=== PATIENT | female | born 1975 | race Caucasian/White ===

== ENCOUNTER 2024-03-22 18:23 | Inpatient (IN) ==
[2024-03-22 19:07] LABS: Basophils # (auto) 0.05 K/uL (0.00-0.20); Basophils % (auto) 0.5 %; Eosinophils # (auto) 0.08 K/uL (0.00-0.50); Eosinophils % (auto) 0.7 %; Hematocrit (blood only) 44.6 % (37.0-47.0); Hemoglobin 15.4 g/dl (12.0-16.0); Immature Granulocytes # (auto) 0.03 K/uL (0.01-0.20); Immature Granulocytes % (auto) 0.3 %; Lymphocytes # (auto) 4.51 K/uL (1.20-3.40); Lymphocytes % (auto) 42.2 %; Mean Corpuscular Hemoglobin 30.3 pg (25.0-34.0); Mean Corpuscular Hgb Conc 34.5 g/dL (32.0-36.0); Mean Corpuscular Volume 87.6 fL (80.0-100.0); Monocytes # (auto) 0.64 K/uL (0.11-0.59); Neutrophils # (auto) 5.38 K/uL (1.40-6.50); Neutrophils % (auto) 50.3 %; Platelet Count 512 K/uL (130-400); RDW Coefficient of Variation 12.4 % (11.5-14.5); RDW Standard Deviation 40.1 fL (36.4-46.3); Red Blood Count 5.09 M/uL (4.20-5.40); White Blood Count 10.69 K/ul (4.8-10.8)
[2024-03-22 19:21] LABS: Albumin Globulin Ratio 1.4 (0.9-2); Albumin Level 4.9 gm/dl (3.4-5.0); BUN Creatinine Ratio 18.3 (10-20); Bilirubin,Total 0.3 mg/dl (0.2-1.0); Calcium 9.7 mg/dl (8.6-10.3); Creatinine Clr Calc Pharmacy 57.7 ml/min; Est GFR (African American) 74.1 ml/min; Est GFR (Non-African American) 63.9 ml/min; Globulin 3.6 gm/dl (2.5-4.0); Potassium 2.7 mmol/L (3.5-5.1); Total Protein 8.5 gm/dl (6.0-8.3)
[2024-03-22 19:32] LABS: Partial Thromboplastin Time 27 Seconds (21-31); Prothrombin Time 10.5 Seconds (9.0-12.0)
[2024-03-22] MEDS: POTASSIUM CHLORIDE / WTR 10 MEQ/100 ML PLCT IV SCH (21:10)
[2024-03-22] MEDS: FAMOTIDINE 20MG IV PUSH 20 MG/5 ML SYR IV STA (21:10)
[2024-03-22] MEDS: METOCLOPRAMIDE HCL INJ 5 MG/ML 2 ML VIAL IV ONE (21:10)
[2024-03-22] MEDS: SODIUM CHLORIDE 0.9% 1,000 ML IV SCH (21:11)
[2024-03-22 22:08] LABS: Magnesium 1.9 mg/dl (1.7-2.4)
[2024-03-23] MEDS: SODIUM CHLORIDE 0.9% 1,000 ML IV SCH (00:34)
[2024-03-23] MEDS: clonazePAM 1 MG TAB PO STA (00:58)
[2024-03-23] MEDS: QUEtiapine FUMARATE 200 MG TAB PO STA (01:13)
--- NOTE | 2024-03-23 01:38 | History & Physical Report ---
Date of Service March 23, 2024 Assessment & Plan (1) Nausea & vomiting: Plan: 48-year-old female with past medical history significant for hypocalcemia, hypokalemia, GERD, colitis, chronic constipation alternating with diarrhea, gastritis, irritable bowel syndrome with diarrhea, gastroparesis, cervical intraepithelial neoplasia 1, fibromyalgia, chronic daily headache, migraine, cervicalgia, syncope, dysthymic disorder, depression, ADHD, generalized anxiety disorder presents with ongoing nausea and vomiting and also found to have hypokalemia. Patient states was admitted to [facility] 3 times in last 2 months with similar episodes.Discharge summary from [facility]" C.Diff was ruled out. CT abdomen pelvis showed fluid throughout colon and rectum. Symptoms thought to be related to irritable bowel syndrome. Gastric emptying study showed delayed gastric emptying of solids. Last colonoscopy February 2023 which showed polyps and diverticulosis. GI suggested gastroparesis diet and EGD and colonoscopy as outpatient. And patient was discharged on potassium supplements 40 mg 3 times daily and dicyclomine and loperamide as needed and simethicone." Patient says still she is having lot of nausea and vomiting. She is not able to eat much. She thinks she is vomiting potassium tablets. She says she alternates diarrhea and constipation. Currently having a lot of diarrhea. Denies any blood in the stool. Not micturating much. She denies any fevers. Sometimes she gets chest pains. Currently no chest pain. No shortness of breath. States she has episodes of blacking out Last time she passed out about, was few days back while sitting on the commode. No fevers. Has some headache. Vision is okay. No runny nose or sore throat currently. No cough currently. Hemodynamics are okay.Patient says sometimes she gets very bad cramps in her legs and as she holds her legs tight and developed bruises and showed photos of bruises. nausea and vomiting possible gastroparesis there is a plan for outpatient EGD and colonoscopy as per patient by end april currently feeling hungry and wants to eat clears IV fluids GI consult in a.m. hypokalemia potassium 2.7 seems chronic and and on home potassium supplements possibly from nausea and vomiting replace and follow labs diarrhea seems irritable bowel syndrome on Linzess GI consulted syncope will check orthostatics patient has syncopes in the past and followed with cardiology in 2021 had ZIO monitor which seems to be unremarkable and also echo seem to be unremarkable as per cardiology notes if any concerns will consult cardiology Leg cramps mostly from electrolyte abnormalities will monitor depression generalized anxiety disorder ADHD continue home medications GERD on Nexium and Pepcid DVT prophylaxis SCDs for now disposition med/telemetry full code. History of Present Illness Chief Complaint: Nausea vomiting and diarrhea Primary Care Provider: Riccardo Nickerson 48-year-old female with past medical history significant for hypocalcemia, hypokalemia, GERD, colitis, chronic constipation alternating with diarrhea, gastritis, irritable bowel syndrome with diarrhea, gastroparesis, cervical intraepithelial neoplasia 1, fibromyalgia, chronic daily headache, migraine, cervicalgia, syncope, dysthymic disorder, depression, ADHD, generalized anxiety disorder presents with ongoing nausea and vomiting and also found to have hypokalemia. Patient states was admitted to [facility] 3 times in last 2 months with similar episodes.Discharge summary from [facility]" C.Diff was ruled out. CT abdomen pelvis showed fluid throughout colon and rectum. Symptoms thought to be related to irritable bowel syndrome. Gastric emptying study showed delayed gastric emptying of solids. Last colonoscopy February 2023 which showed polyps and diverticulosis. GI suggested gastroparesis diet and EGD and colonoscopy as outpatient. And patient was discharged on potassium supplements 40 mg 3 times daily and dicyclomine and loperamide as needed and simethicone." Patient says still she is having lot of nausea and vomiting. She is not able to eat much. She thinks she is vomiting potassium tablets. She says she alternates diarrhea and constipation. Currently having a lot of diarrhea. Denies any blood in the stool. Not micturating much. She denies any fevers. Sometimes she gets chest pains. Currently no chest pain. No shortness of breath. States she has episodes of blacking out Last time she passed out about, was few days back while sitting on the commode. No fevers. Has some headache. Vision is okay. No runny nose or sore throat currently. No cough currently. Hemodynamics are okay.Patient says sometimes she gets very bad cramps in her legs and as she holds her legs tight and developed bruises and showed photos of bruises. Past medical history. As mentioned above past surgical history. Colonoscopy. Colposcopy. Cystourethroscopy. EGD. Bilateral enlargement of breast. Tonsillectomy. Enigma tooth removal. Family history. No smoking. Alcohol rarely. No drug use. Allergies Allergy/AdvReac Type Severity Reaction Status Date / Time No Known Allergies Allergy Unverified 03/22/24 23:10 Home Medications Medication Instructions Recorded Confirmed Type bupropion HCl 150 mg tablet,12 hr 150 mg PO QAM 03/22/24 03/22/24 History sustained-release calcium carbonate (Calcium Antacid) 750 tab PO QAM 03/22/24 03/22/24 History clonazepam 1 mg tablet 1 mg PO BID 03/22/24 03/23/24 History cyanocobalamin (vitamin B-12) 1,000 mcg IM UD 03/22/24 03/22/24 History 1,000 mcg/mL injection solution desvenlafaxine succinate 100 mg 100 mg PO DAILY 03/22/24 03/22/24 History tablet,extended release 24 hr esomeprazole magnesium 40 mg 40 mg PO DAILY 03/22/24 03/22/24 History capsule,delayed release (Nexium) famotidine 20 mg tablet 20 mg PO BID 03/22/24 03/22/24 History linaclotide 290 mcg capsule 290 mcg PO DAILY 03/22/24 03/22/24 History (Linzess) loperamide 2 mg capsule 2 mg PO DIRECTED PRN Diarrhea 03/22/24 03/22/24 History methylphenidate HCl 20 mg tablet 20 mg PO TID 03/22/24 03/22/24 History (Ritalin) ondansetron 4 mg disintegrating 4 mg PO TID PRN Nausea 03/22/24 03/22/24 History tablet potassium chloride 20 mEq 40 meq PO TID 03/22/24 03/23/24 History tablet,extended release quetiapine 200 mg tablet 200 mg PO HS 03/22/24 03/22/24 History simethicone 80 mg chewable tablet 80 mg PO TID PRN .gas/bloating 03/22/24 03/22/24 History (Gas Relief 80 (simethicone)) Past Med/Surg History Problem List (Updated 03/23/24 @ 02:26 by Marlene Lundy MD) Gastroparesis (Acute) Acute hypokalemia (Acute) Nausea & vomiting Social History Smoking Status: Never smoker Second Hand Exposure: No; Do You Dip or Chew Tobacco: No; Tobacco Cessation Education Requested by Patient: No Hx Alcohol Use: No Hx Substance Use: No Preferred Language: Spanish Communication Ability: Effective Gas Controller Required: No Beliefs That Will Affect Care: None Current Living Situation: Alone Other Information That Helps Us Care for You: No Feels Safe at Home: Yes Safety Concerns: Feels Safe At This Time Assistive Devices: None Review of Systems Review of Systems: All systems reviewed & are unremarkable except as noted in HPI & below Physical Exam Physical Exam: General- Not in distress Head- atraumatic Eyes- PERRL. ENT- oropharynx clear Neck- supple, no JVD. Lungs- clear to auscultation no wheezing or crackles. Heart- regular rhythm; no murmur, no gallop. Abdomen- normal bowel sounds, soft, nontender, no distension. Extremities- no pretibial edema, no erythema seen. old bruises seen on extremities. Neuro- alert, oriented PERRL, no facial palsy; no dysarthria; moves extremities Results & Data Results & Data Vital Signs (Past 12 Hours) Vital Signs Temp Pulse Pulse Resp BP BP Pulse Ox 03/22/24 22:23 90 18 118/80 99 03/22/24 21:03 101 H 03/22/24 18:25 36.9 C 119 H 20 123/77 98 O2 Del Method 03/22/24 22:23 Room Air 03/22/24 21:03 03/22/24 18:25 Room Air Diagnostic Findings Laboratory Results WBC 10.69 K/ul (4.8-10.8) 03/22/24 Unknown RBC 5.09 M/uL (4.20-5.40) 03/22/24 Unknown Hgb 15.4 g/dl (12.0-16.0) 03/22/24 Unknown Hct 44.6 % (37.0-47.0) 03/22/24 Unknown MCV 87.6 fL (80.0-100.0) 03/22/24 Unknown MCH 30.3 pg (25.0-34.0) 03/22/24 Unknown MCHC 34.5 g/dL (32.0-36.0) 03/22/24 Unknown RDW Std Deviation 40.1 fL (36.4-46.3) 03/22/24 Unknown RDW Coeff of Justino 12.4 % (11.5-14.5) 03/22/24 Unknown Plt Count 512 K/uL (130-400) H 03/22/24 Unknown MPV 9.0 fL (9.4-12.4) L 03/22/24 Unknown Immature Gran % (Auto) 0.3 % 03/22/24 Unknown Neut % (Auto) 50.3 % 03/22/24 Unknown Lymph % (Auto) 42.2 % 03/22/24 Unknown [place] % (Auto) 6.0 % 03/22/24 Unknown Eos % (Auto) 0.7 % 03/22/24 Unknown Baso % (Auto) 0.5 % 03/22/24 Unknown Neut # (Auto) 5.38 K/uL (1.40-6.50) 03/22/24 Unknown Lymph # (Auto) 4.51 K/uL (1.20-3.40) H 03/22/24 Unknown [place] # (Auto) 0.64 K/uL (0.11-0.59) H 03/22/24 Unknown Eos # (Auto) 0.08 K/uL (0.00-0.50) 03/22/24 Unknown Baso # (Auto) 0.05 K/uL (0.00-0.20) 03/22/24 Unknown Immature Gran # (Auto) 0.03 K/uL (0.01-0.20) 03/22/24 Unknown PT 10.5 Seconds (9.0-12.0) 03/22/24 Unknown INR 1.0 (0.9-1.1) 03/22/24 Unknown APTT 27 Seconds (21-31) 03/22/24 Unknown PTT Ratio 1.0 03/22/24 Unknown Sodium 136 mmol/L (136-145) 03/22/24 Unknown Potassium 2.7 mmol/L (3.5-5.1) L 03/22/24 Unknown Chloride 101 mmol/L (98-107) 03/22/24 Unknown Carbon Dioxide 20 mmol/L (21-32) L 03/22/24 Unknown Anion Gap 15 (3-11) H 03/22/24 Unknown BUN 19 mg/dl (6-23) 03/22/24 Unknown Creatinine 1.04 mg/dl (0.6-1.2) 03/22/24 Unknown Est Cr Clr Drug Dosing 57.7 ml/min 03/22/24 Unknown Est GFR ( Amer) 74.1 ml/min 03/22/24 Unknown Est GFR (Non-Af Amer) 63.9 ml/min 03/22/24 Unknown BUN/Creatinine Ratio 18.3 (10-20) 03/22/24 Unknown Glucose 173 mg/dl (70-99(Fasting)) H 03/22/24 Unknown Calcium 9.7 mg/dl (8.6-10.3) 03/22/24 Unknown Magnesium 1.9 mg/dl (1.7-2.4) 03/22/24 Unknown Total Bilirubin 0.3 mg/dl (0.2-1.0) 03/22/24 Unknown AST 20 U/L (13-39) 03/22/24 Unknown ALT 17 U/L (7-52) 03/22/24 Unknown Alkaline Phosphatase 105 U/L (34-104) H 03/22/24 Unknown Total Protein 8.5 gm/dl (6.0-8.3) H 03/22/24 Unknown Albumin 4.9 gm/dl (3.4-5.0) 03/22/24 Unknown Globulin 3.6 gm/dl (2.5-4.0) 03/22/24 Unknown Albumin/Globulin Ratio 1.4 (0.9-2) 03/22/24 Unknown [place] < 0.1 mmol/L (0.6-1.2) L 03/22/24 22:52 ECG Additional Comments: ECG. Sinus tachycardia rate of 118. Possible left atrial enlargement. Nonspecific ST and T wave abnormalities. Code Status & VTE Plan VTE Prophylaxis Plan VTE Prophylaxis will be ordered: Yes
--- NOTE | 2024-03-23 02:15 | Emergency Department Note ---
Impression & Plan Acute hypokalemia, Gastroparesis ED Provider Note CHIEF COMPLAINT: Vomiting, low potassium, cramps HISTORY OF PRESENT ILLNESS: This 48-year-old female patient with past medical history of fibromyalgia, gastroparesis, hypokalemia recurrently, ADHD, presents to the emergency department with complaints of worsening of symptoms. She states she has had significant charley horses in the legs and now there is "bruising." Patient states she was an inpatient at the [facility] and discharged 2 weeks ago. She is currently taking Bentyl, Linzess, Nexium and is awaiting consultation with gastroenterology. Per outpatient records however, the patient had a solid gastric emptying study performed, CT imaging of the abdomen pelvis and last had a colonoscopy in February 2023. stated that she has prescribed potassium at home however she vomits it up quite frequently. They state they are here this evening for answers as they do not feel that they got them on their admission to the outside hospital. REVIEW OF SYSTEMS: A review of systems was performed with positives and pertinent negatives listed in the history of present illness. 10 systems were reviewed and are otherwise negative. ALLERGIES: see below MEDICATIONS: see below PMH: see below SOCIAL HISTORY: see below DDx: Dehydration, electrolyte abnormality, food intolerance, medication effect, UTI, pyelonephritis, viral etiology, foodborne process among others PHYSICAL EXAM: Vital signs reviewed. General: Well-appearing 48-year-old female, in no significant distress. HEENT: No scleral icterus, PERRLA, neck supple. Moist mucous membranes. Cardiovascular: Regular rate and rhythm, no extra sounds. Pulmonary: Clear to auscultation bilaterally, normal work of breathing. Abdomen: Soft, nontender, nondistended, positive bowel sounds. Musculoskeletal: Atraumatic, no peripheral edema. Neurologic: Patient awake alert and oriented x 3, speech is clear Skin: Warm, dry, no rash EMERGENCY DEPARTMENT COURSE/MDM: This patient was evaluated and appeared to be in no significant distress. IV access was obtained and laboratory work was drawn. The patient was placed on the monitor worker and noted to be in a normal sinus rhythm. She was hydrated with normal saline solution. Laboratory work reveals a potassium of 2.7. She was started on IV potassium with K debbieer. Given her frequent vomiting due to gastroparesis, I do not think that oral potassium will be very successful at this time. Patient's abdominal x-ray series reveals no evidence of obstruction. The patient was medicated with 5 mg of IV Reglan by request in addition to Pepcid 20 mg IV. Her case was discussed with the hospitalist service to evaluate the patient for admission and further management. Patient is aware of plan and agreed. MONITORING: An order for cardiac monitoring was placed and the patient is noted to be in a normal sinus rhythm 82 beats per minute. Abdominal x-ray series to my interpretation reveals no evidence of focal lung consolidation or failure, no evidence of free air or obstruction. EKG: To my interpretation reveals a sinus tachycardia at 118 bpm. Possible left atrial enlargement, nonspecific ST and T wave abnormality, QTc of 456. DISPOSITION: Admission Past Med/Surg History Problem List (Updated 03/23/24 @ 02:26 by Marlene Lundy MD) Gastroparesis (Acute) Acute hypokalemia (Acute) Nausea & vomiting Social History Smoking Status: Never smoker Preferred Language: Congolese Feels Safe at Home: Yes Allergies Allergies Allergy/AdvReac Type Severity Reaction Status Date / Time No Known Allergies Allergy Unverified 03/22/24 23:10 Home Meds Home Medications Medication Instructions Recorded Confirmed bupropion HCl 150 mg tablet,12 hr 150 mg PO QAM 03/22/24 03/22/24 sustained-release calcium carbonate (Calcium Antacid) 750 tab PO QAM 03/22/24 03/22/24 clonazepam 1 mg tablet 1 mg PO BID 03/22/24 03/23/24 cyanocobalamin (vitamin B-12) 1,000 mcg IM UD 03/22/24 03/22/24 1,000 mcg/mL injection solution desvenlafaxine succinate 100 mg 100 mg PO DAILY 03/22/24 03/22/24 tablet,extended release 24 hr esomeprazole magnesium 40 mg 40 mg PO DAILY 03/22/24 03/22/24 capsule,delayed release (Nexium) famotidine 20 mg tablet 20 mg PO BID 03/22/24 03/22/24 linaclotide 290 mcg capsule 290 mcg PO DAILY 03/22/24 03/22/24 (Linzess) loperamide 2 mg capsule 2 mg PO DIRECTED PRN Diarrhea 03/22/24 03/22/24 methylphenidate HCl 20 mg tablet 20 mg PO TID 03/22/24 03/22/24 (Ritalin) ondansetron 4 mg disintegrating 4 mg PO TID PRN Nausea 03/22/24 03/22/24 tablet potassium chloride 20 mEq 40 meq PO TID 03/22/24 03/23/24 tablet,extended release quetiapine 200 mg tablet 200 mg PO HS 03/22/24 03/22/24 simethicone 80 mg chewable tablet 80 mg PO TID PRN .gas/bloating 03/22/24 03/22/24 (Gas Relief 80 (simethicone)) Results & Data (ED) Vital Signs Vital Signs - 24 hr 03/22/24 18:25 03/22/24 21:03 03/22/24 22:23 Temperature 36.9 C Temperature Source Temporal Artery Scan Pulse Rate 119 H 101 H Pulse Rate [Apical] 90 Respiratory Rate 20 18 Respiratory Effort / Characteristics Non-Labored Spontaneous Non-Labored Spontaneous Respiratory Depth Normal Normal Respiratory Pattern Regular Blood Pressure 123/77 Blood Pressure [Right Arm] 118/80 Blood Pressure Mean 92 Blood Pressure Mean [Right Arm] 92 Pulse Oximetry 98 99 Oxygen Delivery Method Room Air Room Air Sepsis Recent Fever Within 48 Hours No Sepsis New/Unexplained Change in Mental Status No Sepsis Action Taken by Nursing No Action Required 03/23/24 01:10 Temperature Temperature Source Pulse Rate 82 Pulse Rate [Apical] Respiratory Rate Respiratory Effort / Characteristics Respiratory Depth Respiratory Pattern Blood Pressure Blood Pressure [Right Arm] Blood Pressure Mean Blood Pressure Mean [Right Arm] Pulse Oximetry Oxygen Delivery Method Sepsis Recent Fever Within 48 Hours Sepsis New/Unexplained Change in Mental Status Sepsis Action Taken by Longterm Medications Current Medication List: was personally reviewed by me Laboratory Data Attestation: I reviewed the patient's lab results. 03/22/24 Unknown 03/22/24 Unknown Lab Results 03/22/24 03/22/24 Range/Units 22:52 Unknown WBC 10.69 (4.8-10.8) K/ul RBC 5.09 (4.20-5.40) M/uL Hgb 15.4 (12.0-16.0) g/dl Hct 44.6 (37.0-47.0) % MCV 87.6 (80.0-100.0) fL MCH 30.3 (25.0-34.0) pg MCHC 34.5 (32.0-36.0) g/dL RDW Std Deviation 40.1 (36.4-46.3) fL RDW Coeff of Justino 12.4 (11.5-14.5) % Plt Count 512 H (130-400) K/uL MPV 9.0 L (9.4-12.4) fL Immature Gran % (Auto) 0.3 % Neut % (Auto) 50.3 % Lymph % (Auto) 42.2 % [place] % (Auto) 6.0 % Eos % (Auto) 0.7 % Baso % (Auto) 0.5 % Neut # (Auto) 5.38 (1.40-6.50) K/uL Lymph # (Auto) 4.51 H (1.20-3.40) K/uL [place] # (Auto) 0.64 H (0.11-0.59) K/uL Eos # (Auto) 0.08 (0.00-0.50) K/uL Baso # (Auto) 0.05 (0.00-0.20) K/uL Immature Gran # (Auto) 0.03 (0.01-0.20) K/uL PT 10.5 (9.0-12.0) Seconds INR 1.0 (0.9-1.1) APTT 27 (21-31) Seconds PTT Ratio 1.0 Sodium 136 (136-145) mmol/L Potassium 2.7 L (3.5-5.1) mmol/L Chloride 101 (98-107) mmol/L Carbon Dioxide 20 L (21-32) mmol/L Anion Gap 15 H (3-11) BUN 19 (6-23) mg/dl Creatinine 1.04 (0.6-1.2) mg/dl Est Cr Clr Drug Dosing 57.7 ml/min Est GFR ( Amer) 74.1 ml/min Est GFR (Non-Af Amer) 63.9 ml/min BUN/Creatinine Ratio 18.3 (10-20) Glucose 173 H (70-99(Fasting)) mg/dl Calcium 9.7 (8.6-10.3) mg/dl Magnesium 1.9 (1.7-2.4) mg/dl Total Bilirubin 0.3 (0.2-1.0) mg/dl AST 20 (13-39) U/L ALT 17 (7-52) U/L Alkaline Phosphatase 105 H (34-104) U/L Total Protein 8.5 H (6.0-8.3) gm/dl Albumin 4.9 (3.4-5.0) gm/dl Globulin 3.6 (2.5-4.0) gm/dl Albumin/Globulin Ratio 1.4 (0.9-2) [place] < 0.1 L (0.6-1.2) mmol/L Administered Medications Sodium Chloride (Nss) 1,000 mls @ 75 mls/hr IV .[id number] LOBO Stop: 03/23/24 12:34 Last Admin: 03/23/24 00:34 Dose: 75 mls/hr Documented By: ASHELY Discontinued Medications Clonazepam (Clonazepam 1 Mg Tab) 1 mg PO NOW STA Stop: 03/23/24 00:40 Last Admin: 03/23/24 00:58 Dose: 1 mg Documented By: ASHELY Sodium Chloride (Nss) 1,000 mls @ 999 mls/hr IV .[id number] LOBO Stop: 03/22/24 23:00 Last Infusion: 03/22/24 23:11 Dose: Infused Documented By: Admin: 03/22/24 22:10 Dose: 999 mls/hr Documented By: Infusion: 03/22/24 22:10 Dose: Infused Documented By: Admin: 03/22/24 21:11 Dose: 999 mls/hr Documented By: TABBY Potassium Chloride (K Kay[place] / Wtr) 10 meq in 100 mls @ 100 mls/hr IV Q1H LOBO Stop: 03/23/24 00:59 Last Admin: 03/23/24 01:44 Dose: 100 mls/hr Documented By: Infusion: 03/23/24 00:39 Dose: Infused Documented By: Admin: 03/22/24 23:39 Dose: 100 mls/hr Documented By: Infusion: 03/22/24 23:11 Dose: Infused Documented By: Admin: 03/22/24 22:11 Dose: 100 mls/hr Documented By: Infusion: 03/22/24 22:10 Dose: Infused Documented By: Admin: 03/22/24 21:10 Dose: 100 mls/hr Documented By: TABBY Famotidine (Pepcid 20mg Iv Push) 20 mg in 5 mls @ 2.5 mls/min IV NOW STA Stop: 03/22/24 21:04 Last Admin: 03/22/24 21:10 Dose: 2.5 mls/min Documented By: TABBY Metoclopramide HCl (Metoclopramide Hcl Inj 5 Mg/Ml 2 Ml Vial) 5 mg IV ONE ONE Stop: 03/22/24 21:04 Last Admin: 03/22/24 21:10 Dose: 5 mg Documented By: TABBY Quetiapine Fumarate (Quetiapine Fumarate 200 Mg Tab) 200 mg PO NOW STA Stop: 03/23/24 00:40 Last Admin: 03/23/24 01:13 Dose: 200 mg Documented By: [facility] Discharge Plan Visit Data Chief Complaint: Illness Stated Complaint: ILLNESS, VOMITING, DIAHRREA, HEADACHE, BODY ACHES ED Provider: Marlene Lundy Discharge Problem: Acute hypokalemia, Gastroparesis Forms Stand Alone Forms: [facility] Prescriptions Prescriptions: No Action bupropion HCl 150 mg tablet sustained-release 12 hr 150 mg PO QAM loperamide 2 mg capsule 2 mg PO DIRECTED PRN (Reason: Diarrhea) methylphenidate HCl [Ritalin] 20 mg Tablet 20 mg PO TID quetiapine 200 mg tablet 200 mg PO HS clonazepam 1 mg tablet 1 mg PO BID Calcium Antacid 300 mg (750 mg) tablet,chewable 750 tab PO QAM famotidine 20 mg tablet 20 mg PO BID cyanocobalamin (vitamin B-12) 1,000 mcg/mL solution 1,000 mcg IM UD esomeprazole magnesium [Nexium] 40 mg Capsule,Delayed Release(Dr/Ec) 40 mg PO DAILY ondansetron 4 mg tablet,disintegrating 4 mg PO TID PRN (Reason: Nausea) simethicone [Gas Relief 80 (simethicone)] 80 mg tablet,chewable 80 mg PO TID PRN (Reason: .gas/bloating) desvenlafaxine succinate 100 mg tablet extended release 24 hr 100 mg PO DAILY Linzess 290 mcg capsule 290 mcg PO DAILY potassium chloride 20 mEq tablet extended release 40 meq PO TID Referrals Referrals: Ricacrdo Nickerson D.O. [Primary Care Provider] -
[2024-03-23] MEDS ORDERED: NITROGLYCERIN SL 0.4 MG/TAB TAB SL PRN (03:09)
--- OUTSIDE RECORDS SUMMARY | 2024-03-23 03:15 | External Medical Summary | Summary of Care ---
Author Name Unknown Organization [facility] Address [address] [address] Phone [phone] Care Team Providers Care Websphere Commerce Architect Name Role Phone Laura Tse MD Primary Care Provider + Encounter Details Date Type Department Care Team (Late st Contact Info) Description 03/08/2024 Population Health External Data Unspecified Department Allergies Active Allergy Reactions Criticality Noted Date Comments Erythromycin 01/09/2002 GI UPSET documented as of this encounter (statuses as of 03/08/2024) Medications Medication Sig Dispensed Refills Start Date End Date Status clonazePAM (KLONOPIN) 1 MG Tablet Take 1 Tablet by mouth in the morning and 1 Tablet before bedtime. 01/25/2019 Active QUEtiapine Fumarate 200 MG Oral Tablet (SEROquel) Take by mouth 1 Tablet before bedtime. 5 Tablet 01/20/2022 Active Desvenlafaxine Succinate ER 100 MG Oral Tablet Extended Release 24 Hour Take 1 Tablet by mouth in the morning. Active Methylphenidate HCl 20 MG Oral Tablet (Ritalin) Take 1 Tablet by mouth in the morning and 1 Tablet at noon and 1 Tablet in the evening. Active Cyanocobalamin 1000 MCG/ML Injection Solution (Cyanocobalamin) Inject 1,000 mcg into a large muscle every 30 days. 11/23/2023 Active Calcium Carbonate Antacid 750 MG Oral Tablet Chewable (Tums E-X) Take 2 Tablets by mouth in the morning. 60 Tablet 12/31/2023 Active Loperamide HCl 2 MG Oral Capsule (Imodium) Take 1 Capsule by mouth every 6 hours as needed for Diarrhea. 30 Capsule 03/04/2024 Active Ondansetron 4 MG Oral Tablet Disintegrating (Zofran) Dissolve 1 Tablet on tongue every 8 hours as needed for Nausea or Vomiting. 60 Tablet 03/04/2024 Active Dicyclomine HCl 20 MG Oral Tablet (Bentyl) Take 1 Tablet by mouth 4 times a day as needed for Other (abdominal pain). 30 Tablet 3 03/04/2024 Active Famotidine 20 MG Oral Tablet (Pepcid) Take 1 Tablet by mouth in the morning and 1 Tablet before bedtime. 60 Tablet 3 03/04/2024 Active NexIUM 40 MG Oral Capsule Delayed Release Take 1 Capsule by mouth daily before breakfast. 30 Capsule 3 03/04/2024 Active Simethicone 80 MG Oral Tablet Chewable (Mylicon) Chew & swallow 1 Tablet by mouth every 6 hours as needed for Gas. 30 Tablet 03/04/2024 Active Potassium Chloride ER 20 MEQ Oral Tablet Extended Release Take 2 Tablets by mouth in the morning and 2 Tablets at noon and 2 Tablets before bedtime. 120 Tablet 03/06/2024 Active Linzess 72 MCG Oral Capsule (linaCLOtide) Take 4 Capsules by mouth daily before breakfast. 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 Medication exposure during first trimester of pr egnancy 05/04/2015 AMA (advanced maternal age) multigravida 35+ SABA I (cervical intraepithelial neoplasia I) Overview: Chronic daily headache 05/30/2013 Migraine without aura 05/30/2013 Cervicalgia 05/30/2013 Abnormal Papanicolaou smear of vagina and vagina l HPV Overview: ICD-10 update of inactive term Fibromyalgia Dysthymic disorder Anemia Esophageal reflux Major depressive disorder Overview: ICD-10 update of inactive term Syncope documented as of this encounter (statuses as of 03/08/2024) Resolved Problems Problem Noted Date Diagnosed Date Resolved Date Encounter for supervision of other normal 02/27/2003 11/14/2003 Overview: ICD-10 update of inactive term Constipation 11/14/2003 Overview: ICD-10 update of inactive term URIN TRACT INFECTION NOS 08/2004 documented as of this encounter (statuses as of 03/08/2024) Immunizations Name Administration Dates Next Due TD, Preservative Free 01/24/2005 TDAP (age 10 and older)(Boostrix) 08/04/2015 TDAP, Age 7 and older, IM (Adacel) 06/20/2007 documented as of this encounter Social History Tobacco Use Types Packs/Day Years Used Date Smoking Tobacco: Never Smokeless Tobacco: Never Comments:DENIES Alcohol Use Standard Drinks/Week Comments No 0 (1 standard drink = 0.6 oz pur e alcohol) rare Personal Safety Answer Date Recorded Do you feel unsafe or have concerns for your saf ety? No 03/02/2024 Do you have concerns for you r family's safety? (Household - for ages 0-17 years) Not on file 03/02/2024 Utilities Answer Date Recorded Do you have trouble paying y our heating, water, or electric bill? No 03/02/2024 Is your family able to pay t he heat, water, or electric bill? (Household - for ages 0-17 years) Not on file 03/02/2024 Does your family have access to good internet? (Household - for ages 0-17 years) Not on file 03/02/2024 Transportation Needs Answer Date Record ed READ ONLY Do you have troubl e getting a ride to medical visits or work? Never True 03/02/2024 Does your family have a hard time getting a ride to doctors visits? (Household - for ages 0-17 years) Not on file 03/02/2024 Has lack of transportation k ept you from medical appointments, meetings, work, or from getting things needed for daily living? Check all that apply. No 03/02/2024 Do you (or your family) have trouble finding or paying for a ride (transportation)? (Household - for ages 0-17 years) Not on file 03/02/2024 Housing Stability Answer Date Recorded Do you currently live in a s helter or have no steady place to sleep at night? (Adult - for ages 18 years and over) Not on file 03/02/2024 READ ONLY Do you think you a re at risk of becoming homeless? No 03/02/2024 Does your family worry about paying for your home or becoming homeless? (Household - for ages 0-17 years) Not on file 0 03/02/2024 Are you homeless or worried that you might be in the future? No 03/02/2024 Are you (or your family) lisa eless or worried that you might be in the future? (Household - for ages 0-17 years) Not on file Food Insecurity Answer Date Recorded Do you need food for this week? No 03/02/2024 Are you able to get enough f ood for your family? (Household - for ages 0-17 years) Not on file 03/02/2024 Does your family need food t his week? (Household - for ages 0-17 years) Not on file 03/02/2024 Do you always have enough fo od for your family? (Household - for ages 0-17 years) Not on file 03/02/2024 Sex and Gender Information Value Date Recorded Sex Assigned at Not on file Gender Identity Not on file Sexual Orientation Not on file Job Start Date Occupation Industry Not on file Not on file Not on file documented as of this encounter Functional Status Functional Status Response Date of Assess ment Are you deaf or do you have serious difficulty h earing? No 03/02/2024 Are you blind or do you have serious difficulty seeing, even when wearing glasses? No 03/02/2024 Do you have serious difficul ty walking or climbing stairs? (5 years old or older) No 03/02/2024 Do you have difficulty dress ing or bathing? (5 years old or older) No 03/02/2024 Because of a physical, menta l, or emotional condition, do you have difficulty doing errands alone such as visiting a doctor s office or shopping? (15 years old or older) No 03/02/20 24 Cognitive Status Response Date of Assessm ent Because of a physical, menta l, or emotional condition, do you have serious difficulty concentrating, remembering, or making decisions? (5 years old or older) No 03/02/2024 documented as of this encounter Plan of Treatment Upcoming Encounters Date Type Department Care Team (Latest Contact Info) Description 03/13/2024 2:00 PM EDT Hospital Encounter Radiology, [address] [place] [address] 04/30/2024 9:27 AM EDT Hospital Encounter OR [facility], Operating Room, [facility] - 4th Floor [address] [place] [address] Bryce Reece, DO [address] [place] [address] 04/30/2024 9:27 AM EDT - 04/30/2024 10:14 AM EDT Surgery OR [facility], Operating Room, [facility] - 4th Floor [address] [place] [address] Bryce Reece, DO [address] [place] [address] COLONOSCOPY FLEXIBLE PROXIMAL DIAGNOSTIC Scheduled Procedures Name Priority Associated Diagnoses Date/Ti me COLONOSCOPY FLEXIBLE PROXIMA L DIAGNOSTIC Recall History of colonic polyps Colitis Nausea and vomiting 04/30/2024 9:27 AM EDT ESOPHAGOGASTRODUODENOSCOPY ( EGD), FLEXIBLE, TRANSORAL, DIAGNOSTIC Recall History of colonic polyps Colitis Nausea and vomiting 04/30/2024 9:27 AM EDT Health Maintenance Due Date Last Done Comments Hepatitis B Vaccine (1 of 3 - 19+ 3-dose series) 1995 HPV/Co-Test 2006 Depression Monitoring 02/18/2016 02/17/2015 Cervical Cancer Screening 05/26/2019 Pap Smear 05/26/2019 05/26/2016, 04/04, 04/15/2014, Additional history exists Mammogram 04/22/2021 04/22/2020, 08/04, 07/24/2018, Additional history exists Cologuard 2021 Fecal Occult Blood Test 2021 Sigmoidoscopy 2021 COVID-19 Vaccine ( season) 2023 Influenza Vaccine (FLU shot) (#1) 2024 DTaP,Tdap,and Td Vaccines (3 - Td or Tdap) 08/04/2025 08/04/2015, 06/20/2007, 01/24/2005 Lipid Panel 01/15/2027 01/15/2022 Colonoscopy 03/02/2028 03/02/2023, 03/02/2023 Colorectal Cancer Screening 03/02/2028 RETIRED - COLONOSCOPY-EVERY 5 YRS AGES 18-100 Discontinued 03/02/2023, 03/02/2023 HPV (Gardasil) Vaccine Aged Out No lo nger eligible based on patient's age to complete this topic MENINGOCOCCAL (MENACTRA/MENVEO) Aged Out No longer eligible based on patient's age to complete this topic Pneumococcal Vaccine: Pediatrics (0 to 5 Years) and At-Risk Patients (6 to 64 Years) Aged Out No longer eligible based on patient's age to complete this topic documented as of this encounter Medical Devices Not on filedocumented as of this encounter Advance Directives * Full Code (Latest Code Status on File) Date Activated Date Inactivated Comments 03/01/2024 11:58 PM 03/06/2024 4:42 PM This order r eflects the patients wishes and were consensually agreed upon. Question Answer Comments Discussion of Advance Directives occurred with: Patient * Full Code Date Activated Date Inactivated Comments 01/27/2024 4:43 AM 01/28/2024 2:02 PM This order r eflects the patients wishes and were consensually agreed upon. Question Answer Comments Discussion of Advance Directives occurred with: Patient * Full Code Date Activated Date Inactivated Comments 12/28/2023 6:11 PM 12/31/2023 3:09 PM This order r eflects the patients wishes and were consensually agreed upon. Question Answer Comments Discussion of Advance Directives occurred with: Patient * Full Code Date Activated Date Inactivated Comments 01/16/2022 1:36 AM 01/20/2022 2:02 PM This order r eflects the patients wishes and were consensually agreed upon. Question Answer Comments Discussion of Advance Directives occurred with: Patient Does the patient have a Living Will? No Does the patient have Health Care Power of Attor lamin? No * Full Code Date Activated Date Inactivated Comments 07/19/2021 4:00 PM 07/19/2021 9:05 PM This order reflects the patients wishes and were consensually agreed upon. Care Teams Websphere Commerce Architect Relationship Specialty Start Date End Date Laura Tse MD [address] [facility] [place] [address] PCP - General Family Medicine 10/20/16 documented as of this encounter
--- OUTSIDE RECORDS SUMMARY | 2024-03-23 03:16 | External Medical Summary ---
Author Name Unknown Address Unknown Organization K1[facility] [place] [address] [address] [place] [address] Laboratory Report Ordering Provider Test Date Status MIN,MAW 03/04/2024 05:24:00 Final Observation Date Value Abnormality Reference (Units ) Status WBC, Total 03/04/2024 05:24:00 6.66 4.00-10.80 (K/uL) Final RBC 03/04/2024 05:24:00 3.84 3.85-5.15 (M/uL) Final Hemoglobin 03/04/2024 05:24:00 11.8 Below low normal 12.0-15.3 (g/dL) Final HCT 03/04/2024 05:24:00 35.3 Below low normal 36.0-45.2 (%) Final MCV 03/04/2024 05:24:00 91.9 81.5-97.5 (fL) Final MCH 03/04/2024 05:24:00 30.7 27.0-34.0 (pg) Final MCHC 03/04/2024 05:24:00 33.4 32.0-36.0 (g/dL) Final RDW 03/04/2024 05:24:00 12.5 11.5-15.5 (%) Final Platelets 03/04/2024 05:24:00 306 140-400 (K/uL) Final MPV 03/04/2024 05:24:00 9.1 6.6-11.1 (fL) Final Nucleated erythrocytes/100 leukocytes [Ratio] in Blood by Automated count 03/04/2024 05:24:00 0 <=0 (/100 WBCs) Final Performing Location LABORATORY [facility] - [address] [place] [address]
--- OUTSIDE RECORDS SUMMARY | 2024-03-23 03:16 | External Medical Summary ---
Author Name Unknown Address Unknown Organization [facility] - [address] [place] [address] Laboratory Report Ordering Provider Test Date Status MIN,MAW 03/03/2024 07:55:00 Final Observation Date Value Abnormality Reference (Units ) Status Phosphate 03/03/2024 07:55:00 2.7 2.5-4.8 (m g/dL) Final Performing Location LAB[facility]ATORY [facility] - [address] [place] [address]
--- OUTSIDE RECORDS SUMMARY | 2024-03-23 03:16 | External Medical Summary ---
Author Name Unknown Address Unknown Organization [facility]ORY [facility] - [address] [place] [address] Laboratory Report Ordering Provider Test Date Status LAITH WHITAEKR 03/02/2024 08:32:00 Final Observation Date Value Abnormality Reference (Units ) Status BUN 03/02/2024 08:32:00 13 6-20 (mg/dL) Final Creatinine 03/02/2024 08:32:00 0.8 0.5-1.0 (mg/dL) Final Glomerular filtration rate/1.73 sq M.predicted [Volume Rate/Area] in Serum, Plasma or Blood by Creatinine-based formula (CKD-EPI) 03/02/2024 08:32:00 >90 >=60 (mL/min) Final eGFR is calculated based on the CKD-EPI 2020 equation Sodium 03/02/2024 08:32:00 137 135-146 (m mol/L) Final Potassium 03/02/2024 08:32:00 4.1 3.5-5.1 (m mol/L) Final Cl 03/02/2024 08:32:00 105 98-107 (mm ol/L) Final CO2 03/02/2024 08:32:00 19 Below low normal 22- 32 (mmol/L) Final Anion gap 03/02/2024 08:32:00 13 7-15 (mmol /L) Final Glucose 03/02/2024 08:32:00 112 70-120 (mg /dL) Final Calcium 03/02/2024 08:32:00 8.5 8.4-10.2 ( mg/dL) Final Performing Location LAB[facility]ATORY [facility] - [address] [place] [address]
--- OUTSIDE RECORDS SUMMARY | 2024-03-23 03:16 | External Medical Summary ---
Author Name Unknown Address Unknown Organization K1[facility] [place] [address] Laboratory Report Ordering Provider Test Date Status MIN,MAW 03/03/2024 07:55:00 Final Observation Date Value Abnormality Reference (Units ) Status WBC, Total 03/03/2024 07:55:00 6.90 4.00-10.80 (K/uL) Final RBC 03/03/2024 07:55:00 3.69 3.85-5.15 (M/uL) Final Hemoglobin 03/03/2024 07:55:00 11.4 Below low normal 12.0-15.3 (g/dL) Final HCT 03/03/2024 07:55:00 34.1 Below low normal 36.0-45.2 (%) Final MCV 03/03/2024 07:55:00 92.4 81.5-97.5 (fL) Final MCH 03/03/2024 07:55:00 30.9 27.0-34.0 (pg) Final MCHC 03/03/2024 07:55:00 33.4 32.0-36.0 (g/dL) Final RDW 03/03/2024 07:55:00 12.4 11.5-15.5 (%) Final Platelets 03/03/2024 07:55:00 289 140-400 (K/uL) Final MPV 03/03/2024 07:55:00 9.0 6.6-11.1 (fL) Final Nucleated erythrocytes/100 leukocytes [Ratio] in Blood by Automated count 03/03/2024 07:55:00 0 <=0 (/100 WBCs) Final Performing Location LABORATORY [facility] - [address] [place] [address]
--- OUTSIDE RECORDS SUMMARY | 2024-03-23 03:16 | External Medical Summary ---
Author Name Unknown Address Unknown Organization K1[facility]ATORY [facility] - [address] [place] [address] Laboratory Report Ordering Provider Test Date Status MIN,MAW 03/05/2024 05:44:00 Final Observation Date Value Abnormality Reference (Units ) Status SYNC LEUKOCYTES IN BLOOD BY AUTOMATED COUNT 03/05/2024 05:44:00 6.04 4.00-10.80 (K/uL) Final Segs 03/05/2024 05:44:00 40.9 40.0-75.0 (%) Final Lymphs % 03/05/2024 05:44:00 47.8 Above high normal 18.0-42.0 (%) Final Monos 03/05/2024 05:44:00 8.1 1.0-11.0 (%) Final Eosinophils 03/05/2024 05:44:00 2.2 0.0-6.0 (%) Final Basos 03/05/2024 05:44:00 0.7 0.0-2.0 (%) Final Immature Granulocyte, Percent 03/05/2024 05:44:00 0.3 0.0-2.0 (%) Final Absolute Segs 03/05/2024 05:44:00 2.47 1.80-7.70 (K/uL) Final Lymphs, absolute 03/05/2024 05:44:00 2.89 1.00-4.80 (K/ul) Final Monos, Abs 03/05/2024 05:44:00 0.49 0.00-1.10 (K/uL) Final Eos, Abs 03/05/2024 05:44:00 0.13 0.00-0.70 (K/uL) Final Basos, Abs 03/05/2024 05:44:00 0.04 0.00-0.20 (K/uL) Final Immature Granulocytes, Number 03/05/2024 05:44:00 0.02 0.00-0.20 (K/uL) Final Performing Location LABORATORY [facility] - [address] [facility] [address] [place] [address]
--- OUTSIDE RECORDS SUMMARY | 2024-03-23 03:16 | External Medical Summary ---
Author Name Unknown Address Unknown Organization [facility] - [address] [place] [address] Laboratory Report Ordering Provider Test Date Status MIN,MAW 03/05/2024 05:44:00 Final Observation Date Value Abnormality Reference (Units ) Status Magnesium 03/05/2024 05:44:00 2.0 1.5-2.6 (m g/dL) Final Performing Location LAB[facility]ATORY [facility] - [address] [place] [address]
--- OUTSIDE RECORDS SUMMARY | 2024-03-23 03:16 | External Medical Summary ---
Author Name Unknown Address Unknown Organization [facility] - [address] [place] [address] Laboratory Report Ordering Provider Test Date Status MIN,MAW 03/06/2024 06:50:00 Final Observation Date Value Abnormality Reference (Units ) Status Magnesium 03/06/2024 06:50:00 1.9 1.5-2.6 (m g/dL) Final Performing Location LAB[facility]ATORY [facility] - [address] [place] [address]
--- OUTSIDE RECORDS SUMMARY | 2024-03-23 03:16 | External Medical Summary ---
Author Name Unknown Address Unknown Organization K1[facility]:LABORATORY [facility] - [address] [place] [address] Laboratory Report Ordering Provider Test Date Status LAITH WHITAKER 03/02/2024 08:32:00 Final Observation Date Value Abnormality Reference (Units ) Status WBC, Total 03/02/2024 08:32:00 9.73 4.00-10.80 (K/uL) Final RBC 03/02/2024 08:32:00 4.14 3.85-5.15 (M/uL) Final Hemoglobin 03/02/2024 08:32:00 13.0 12.0-15.3 (g/dL) Final HCT 03/02/2024 08:32:00 39.0 36.0-45.2 (%) Final MCV 03/02/2024 08:32:00 94.2 81.5-97.5 (fL) Final MCH 03/02/2024 08:32:00 31.4 27.0-34.0 (pg) Final MCHC 03/02/2024 08:32:00 33.3 32.0-36.0 (g/dL) Final RDW 03/02/2024 08:32:00 12.4 11.5-15.5 (%) Final Platelets 03/02/2024 08:32:00 326 140-400 (K/uL) Final MPV 03/02/2024 08:32:00 9.0 6.6-11.1 (fL) Final Nucleated erythrocytes/100 leukocytes [Ratio] in Blood by Automated count 03/02/2024 08:32:00 0 <=0 (/100 WBCs) Final Performing Location LAB[facility]ATORY [facility] - [address] [place] [address]
--- OUTSIDE RECORDS SUMMARY | 2024-03-23 03:16 | External Medical Summary ---
Author Name Unknown Address Unknown Organization K1[facility]:LABORATORY [facility] - [address] [place] [address] Laboratory Report Ordering Provider Test Date Status MINBRIA 03/04/2024 05:25:00 Final Observation Date Value Abnormality Reference (Units ) Status BUN 03/04/2024 05:25:00 3 Below low normal 6-20 (mg/dL) Final Creatinine 03/04/2024 05:25:00 0.7 0.5-1.0 (mg/dL) Final Glomerular filtration rate/1.73 sq M.predicted [Volume Rate/Area] in Serum, Plasma or Blood by Creatinine-based formula (CKD-EPI) 03/04/2024 05:25:00 >90 >=60 (mL/min) Final eGFR is calculated based on the CKD-EPI 2020 equation Sodium 03/04/2024 05:25:00 137 135-146 (m mol/L) Final Potassium 03/04/2024 05:25:00 3.4 Below low normal 3.5 -5.1 (mmol/L) Final Cl 03/04/2024 05:25:00 111 Above high normal 98 -107 (mmol/L) Final CO2 03/04/2024 05:25:00 18 Below low normal 22- 32 (mmol/L) Final Anion gap 03/04/2024 05:25:00 8 7-15 (mmol /L) Final Glucose 03/04/2024 05:25:00 94 70-120 (mg /dL) Final Calcium 03/04/2024 05:25:00 8.4 8.4-10.2 ( mg/dL) Final Performing Location LAB[facility]ATORY [facility] - [address] [place] [address]
--- OUTSIDE RECORDS SUMMARY | 2024-03-23 03:16 | External Medical Summary ---
Author Name Unknown Address Unknown Organization K1[facility]:LABORATORY [facility] - [address] [place] [address] Laboratory Report Ordering Provider Test Date Status MINSEANW 03/05/2024 05:44:00 Final Observation Date Value Abnormality Reference (Units ) Status BUN 03/05/2024 05:44:00 4 Below low normal 6-20 (mg/dL) Final Creatinine 03/05/2024 05:44:00 0.7 0.5-1.0 (mg/dL) Final Glomerular filtration rate/1.73 sq M.predicted [Volume Rate/Area] in Serum, Plasma or Blood by Creatinine-based formula (CKD-EPI) 03/05/2024 05:44:00 >90 >=60 (mL/min) Final eGFR is calculated based on the CKD-EPI 2020 equation Sodium 03/05/2024 05:44:00 139 135-146 (m mol/L) Final Potassium 03/05/2024 05:44:00 3.3 Below low normal 3.5 -5.1 (mmol/L) Final Cl 03/05/2024 05:44:00 111 Above high normal 98 -107 (mmol/L) Final CO2 03/05/2024 05:44:00 19 Below low normal 22- 32 (mmol/L) Final Anion gap 03/05/2024 05:44:00 9 7-15 (mmol /L) Final Glucose 03/05/2024 05:44:00 94 70-120 (mg /dL) Final Calcium 03/05/2024 05:44:00 8.4 8.4-10.2 ( mg/dL) Final Performing Location LABORATORY [facility] - [address] [address] [place] [address]
--- OUTSIDE RECORDS SUMMARY | 2024-03-23 03:16 | External Medical Summary | Summary of Care ---
Author Name Unknown Organization [facility] Address [address] [place] [facility] [address] Phone [phone] Care Team Providers Care Communications Media Professor Name Role Phone Laura Tse MD Primary Care Provider + Encounter Details Date Type Department Care Team (Late st Contact Info) Description 03/04/2024 Documentation [facility] Medicine [address] [place] [address] Cara Jara LPN Allergies Active Allergy Reactions Criticality Noted Date Comments Erythromycin 01/09/2002 GI UPSET documented as of this encounter (statuses as of 03/04/2024) Medications Medication Sig Dispensed Refills Start Date End Date Status rifAXIMin 550 MG Oral Tablet (Xifaxan) Take 1 Tablet by mouth in the morning and 1 Tablet before bedtime. Do all this for 13 days. 26 Tablet 03/04/2024 Active Loperamide HCl 2 MG Oral Capsule (Imodium) Take 1 Capsule by mouth every 6 hours as needed for Diarrhea. 30 Capsule 03/04/2024 Active Ondansetron 4 MG Oral Tablet Disintegrating (Zofran) Dissolve 1 Tablet on tongue every 8 hours as needed for Nausea or Vomiting. 60 Tablet 03/04/2024 Active Potassium Chloride ER 20 MEQ Oral Tablet Extended Release Take 2 Tablets by mouth in the morning and 2 Tablets before bedtime. 120 Tablet 03/04/2024 Active Dicyclomine HCl 20 MG [...] needed for Gas. 30 Tablet 03/04/2024 Active clonazePAM (KLONOPIN) 1 MG Tablet Take 1 Tablet by mouth in the morning and 1 Tablet before bedtime. 01/25/2019 Suspended QUEtiapine Fumarate 200 MG Oral Tablet (SEROquel) Take by mouth 1 Tablet before bedtime. 5 Tablet 01/20/2022 Suspended Additional Information Desvenlafaxine Succinate ER 100 MG Oral Tablet Extended Release 24 Hour Take 1 Tablet by mouth in the morning. Suspended Methylphenidate HCl 20 MG Oral Tablet (Ritalin) Take 1 Tablet by mouth in the morning and 1 Tablet at noon and 1 Tablet in the evening. Suspended Cyanocobalamin 1000 MCG/ML Injection Solution (Cyanocobalamin) Inject 1,000 mcg into a large muscle every 30 days. 11/23/2023 Suspended Calcium Carbonate Antacid 750 MG Oral Tablet Chewable (Tums E-X) Take 2 Tablets by mouth in the morning. 60 Tablet 12/31/2023 Suspended Additional Information documented as of this encounter (statuses as of 03/04/2024) Active Problems Problem Noted Date Diagnosed Date Irritable bowel syndrome with diarrhea 4 Irritable [...] as of this encounter (statuses as of 03/04/2024) Resolved Problems Problem Noted Date Diagnosed Date Resolved Date Encounter for supervision of other normal 02/27/2003 11/14/2003 Overview: ICD-10 update of inactive term Constipation 11/14/2003 Overview: ICD-10 update of inactive term URIN TRACT INFECTION NOS 08/2004 documented as of this encounter (statuses as of 03/04/2024) Immunizations Name Administration Dates Next Due TD, [...] No 03/02/2024 documented as of this encounter Nursing Notes * Cara Jara LPN - 03/04/2024 3:28 PM EDT Prior authorization submitted for Xifaxan 550 mg one twice daily via CoverMyMeds. Auth pending. documented in this encounter Plan of Treatment Upcoming Encounters Date Type Department Care Team (Latest Contact Info) Description 03/13/2024 2:00 PM EDT Appointment Radiology, [address] [place] [address] 04/30/2024 9:27 AM EDT Hospital Encounter OR [facility], Operating Room, [facility] - 4th Floor [address] [address] Bryce Reece, DO [address] [place] [address] 04/30/2024 9:27 AM EDT - 04/30/2024 10:14 AM EDT Surgery OR [facility], Operating Room, [facility] - 4th Floor [address] [place] [address] Bryce Reece, DO [address] [place] [address] COLONOSCOPY FLEXIBLE PROXIMAL DIAGNOSTIC Scheduled Procedures Name Priority Associated Diagnoses Date/Ti me COLONOSCOPY FLEXIBLE PROXIMA L DIAGNOSTIC Recall History of colonic polyps Colitis Nausea and vomiting 04/30/2024 9:27 AM EDT ESOPHAGOGASTRODUODENOSCOPY ( EGD), FLEXIBLE, TRANSORAL, DIAGNOSTIC Recall History of colonic polyps Colitis Nausea and vomiting 04/30/2024 9:27 AM EDT Health Maintenance Due Date Last Done Comments Hepatitis B (1 of 3 - 19+ 3-dose series) 1995 HPV/Co-Test 2006 Depression Monitoring 02/18/2016 02/17/2015 Cervical Cancer Screening 05/26/2019 Pap Smear 05/26/2019 05/26/2016, 04/04, 04/15/2014, Additional history exists Mammogram 04/22/2021 04/22/2020, 08/04, 07/24/2018, Additional history exists Cologuard 2021 Fecal Occult Blood Test 2021 Sigmoidoscopy 2021 COVID-19 Vaccine (2022- season) 2023 Influenza Vaccine (FLU shot) (#1) 2024 DTaP,Tdap,and Td Vaccines (3 - Td or Tdap) 08/04/2025 08/04/2015, 06/20/2007, 01/24/2005 Lipid Panel 01/15/2027 01/15/2022 Colonoscopy 03/02/2028 03/02/2023, 03/02/2023 Colorectal Cancer Screening 03/02/2028 RETIRED - COLONOSCOPY-EVERY 5 YRS AGES 18-100 Discontinued 03/02/2023, 03/02/2023 GARDASIL-HPV IMMUNIZATION SERIES Aged Out No longer eligible based on [...] Not on filedocumented as of this encounter Additional Health Concerns Infection Onset Date Last Indicated Resolved Time Gastrointestinal Rule-Out 03/02/2024 03/03/2024 9:35 AM EDT documented as of this encounter Advance Directives * Full Code (Latest Code Status on File) Date Activated Date Inactivated Comments 03/01/2024 11:58 PM This order re flects the patients wishes and were consensually agreed [...] and were consensually agreed upon. Care Teams Communications Media Professor Relationship Specialty Start Date End Date Laura Tse MD [address] [place] [id number] PCP - General Family Medicine 10/20/16 documented as of this encounter
--- OUTSIDE RECORDS SUMMARY | 2024-03-23 03:16 | External Medical Summary ---
Author Name Unknown Address Unknown Organization K1F:LABORATORY [facility] - [address] [place] [address] Laboratory Report Ordering Provider Test Date Status MIN,MAW 03/04/2024 05:24:00 Final Observation Date Value Abnormality Reference (Units ) Status SYNC LEUKOCYTES IN BLOOD BY AUTOMATED COUNT 03/04/2024 05:24:00 6.66 4.00-10.80 (K/uL) Final Segs 03/04/2024 05:24:00 46.8 40.0-75.0 (%) Final Lymphs % 03/04/2024 05:24:00 43.1 Above high normal 18.0-42.0 (%) Final Monos 03/04/2024 05:24:00 7.8 1.0-11.0 (%) Final Eosinophils 03/04/2024 05:24:00 1.5 0.0-6.0 (%) Final Basos 03/04/2024 05:24:00 0.6 0.0-2.0 (%) Final Immature Granulocyte, Percent 03/04/2024 05:24:00 0.2 0.0-2.0 (%) Final Absolute Segs 03/04/2024 05:24:00 3.12 1.80-7.70 (K/uL) Final Lymphs, absolute 03/04/2024 05:24:00 2.87 1.00-4.80 (K/ul) Final Monos, Abs 03/04/2024 05:24:00 0.52 0.00-1.10 (K/uL) Final Eos, Abs 03/04/2024 05:24:00 0.10 0.00-0.70 (K/uL) Final Basos, Abs 03/04/2024 05:24:00 0.04 0.00-0.20 (K/uL) Final Immature Granulocytes, Number 03/04/2024 05:24:00 0.01 0.00-0.20 (K/uL) Final Performing Location LABORATORY [facility] - [address] [facility] [address] [place] [address]
--- OUTSIDE RECORDS SUMMARY | 2024-03-23 03:16 | External Medical Summary ---
Author Name Unknown Address Unknown Organization K1F:[facility] - [address] [place] [address] Laboratory Report Ordering Provider Test Date Status MIN,MAW 03/04/2024 05:25:00 Final Observation Date Value Abnormality Reference (Units ) Status Magnesium 03/04/2024 05:25:00 2.1 1.5-2.6 (m g/dL) Final Performing Location LAB[facility]ATORY [facility] - [address] [place] [address]
--- OUTSIDE RECORDS SUMMARY | 2024-03-23 03:16 | External Medical Summary ---
Author Name Unknown Address Unknown Organization K1F:[facility] - [address] [place] [address] Laboratory Report Ordering Provider Test Date Status MIN,MAW 03/03/2024 07:55:00 Final Observation Date Value Abnormality Reference (Units ) Status BUN 03/03/2024 07:55:00 5 Below low normal 6-20 (mg/dL) Final Creatinine 03/03/2024 07:55:00 0.8 0.5-1.0 (mg/dL) Final Glomerular filtration rate/1.73 sq M.predicted [Volume Rate/Area] in Serum, Plasma or Blood by Creatinine-based formula (CKD-EPI) 03/03/2024 07:55:00 >90 >=60 (mL/min) Final eGFR is calculated based on the CKD-EPI 2020 equation Sodium 03/03/2024 07:55:00 140 135-146 (m mol/L) Final Potassium 03/03/2024 07:55:00 3.8 3.5-5.1 (m mol/L) Final Cl 03/03/2024 07:55:00 109 Above high normal 98 -107 (mmol/L) Final CO2 03/03/2024 07:55:00 23 22-32 (mmo l/L) Final Anion gap 03/03/2024 07:55:00 8 7-15 (mmol /L) Final Glucose 03/03/2024 07:55:00 102 70-120 (mg /dL) Final Albumin 03/03/2024 07:55:00 3.4 Below low normal 3.8 -5.0 (g/dL) Final AST (Aspartate aminotransferase) 03/03/2024 07:55:00 18 10-35 (U/L) Fin al Alk Phos 03/03/2024 07:55:00 101 35-130 (U/ L) Final Bilirubin, Total 03/03/2024 07:55:00 <0.2 <=1 .2 (mg/dL) Final Calcium 03/03/2024 07:55:00 8.0 Below low normal 8.4 -10.2 (mg/dL) Final Protein 03/03/2024 07:55:00 5.5 Below low normal 6.0 -8.3 (g/dL) Final ALT (Alanine aminotransferase) 03/03/2024 07:55:00 17 10-35 (U/L) Andrea iverson [facility] Location [facility]ATORY [facility] - [facility] [address] [place] [address]
--- OUTSIDE RECORDS SUMMARY | 2024-03-23 03:16 | External Medical Summary ---
Author Name Unknown Address Unknown Organization K1F:LABORATORY [address] [place] [address] Laboratory Report Ordering Provider Test Date Status MIN,MAW 03/03/2024 07:55:00 Final Observation Date Value Abnormality Reference (Units ) Status SYNC LEUKOCYTES IN BLOOD BY AUTOMATED COUNT 03/03/2024 07:55:00 6.90 4.00-10.80 (K/uL) Final Segs 03/03/2024 07:55:00 52.0 40.0-75.0 (%) Final Lymphs % 03/03/2024 07:55:00 39.0 18.0-42.0 (%) Final Monos 03/03/2024 07:55:00 7.2 1.0-11.0 (%) Final Eosinophils 03/03/2024 07:55:00 1.3 0.0-6.0 (%) Final Basos 03/03/2024 07:55:00 0.4 0.0-2.0 (%) Final Immature Granulocyte, Percent 03/03/2024 07:55:00 0.1 0.0-2.0 (%) Final Absolute Segs 03/03/2024 07:55:00 3.58 1.80-7.70 (K/uL) Final Lymphs, absolute 03/03/2024 07:55:00 2.69 1.00-4.80 (K/ul) Final Monos, Abs 03/03/2024 07:55:00 0.50 0.00-1.10 (K/uL) Final Eos, Abs 03/03/2024 07:55:00 0.09 0.00-0.70 (K/uL) Final Basos, Abs 03/03/2024 07:55:00 0.03 0.00-0.20 (K/uL) Final Immature Granulocytes, Number 03/03/2024 07:55:00 0.01 0.00-0.20 (K/uL) Final Performing Location LABORATORY [facility] - [address] [place] [address]
--- OUTSIDE RECORDS SUMMARY | 2024-03-23 03:16 | External Medical Summary ---
Author Name Unknown Address Unknown Organization K1F:LABORATORY [facility] - [address] [place] [address] Laboratory Report Ordering Provider Test Date Status LAITH WHITAKER 03/02/2024 08:50:23 Final Observation Date Value Abnormality Reference (Units) Status Source 03/02/2024 08:50:23 Liquid Final Clostridioides difficile toxin and [id number] strain DNA panel - Stool by MINDI with probe detection 03/02/2024 08:50:23 Negative. No C. difficile toxin B gene DNA detected by PCR (Amplified Probe). Negative Final Performing Location LABORATORY [facility] - [address] [place] [address]
--- OUTSIDE RECORDS SUMMARY | 2024-03-23 03:16 | External Medical Summary ---
Author Name Unknown Address Unknown Organization K1F:[facility] - [address] [place] [address] Laboratory Report Ordering Provider Test Date Status MIN,MAW 03/05/2024 05:44:00 Final Observation Date Value Abnormality Reference (Units ) Status Phosphate 03/05/2024 05:44:00 2.5 2.5-4.8 (m g/dL) Final Performing Location LABORATORY [facility] - [address] [place] [address]
--- OUTSIDE RECORDS SUMMARY | 2024-03-23 03:16 | External Medical Summary ---
Author Name Unknown Address Unknown Organization K1F:LABORATORY [facility] - [facility] [place] [address] Laboratory Report Ordering Provider Test Date Status MIN,MAW 03/05/2024 05:44:00 Final Observation Date Value Abnormality Reference (Units ) Status WBC, Total 03/05/2024 05:44:00 6.04 4.00-10.80 (K/uL) Final RBC 03/05/2024 05:44:00 4.07 3.85-5.15 (M/uL) Final Hemoglobin 03/05/2024 05:44:00 12.3 12.0-15.3 (g/dL) Final HCT 03/05/2024 05:44:00 36.8 36.0-45.2 (%) Final MCV 03/05/2024 05:44:00 90.4 81.5-97.5 (fL) Final MCH 03/05/2024 05:44:00 30.2 27.0-34.0 (pg) Final MCHC 03/05/2024 05:44:00 33.4 32.0-36.0 (g/dL) Final RDW 03/05/2024 05:44:00 12.5 11.5-15.5 (%) Final Platelets 03/05/2024 05:44:00 319 140-400 (K/uL) Final MPV 03/05/2024 05:44:00 9.0 6.6-11.1 (fL) Final Nucleated erythrocytes/100 leukocytes [Ratio] in Blood by Automated count 03/05/2024 05:44:00 0 <=0 (/100 WBCs) Final Performing Location LABORATORY [facility] - [address] [place] [address]
--- OUTSIDE RECORDS SUMMARY | 2024-03-23 03:16 | External Medical Summary ---
Author Name Unknown Address Unknown Organization K01:[facility] [place] [address] [facility] [address] Laboratory Report Ordering Provider Test Date Status JULIANNELAITH 03/03/2024 10:21:53 Final Reduced normal chrissy. Clinic al correlation needed. Observation Date Value Abnormality Reference (Units) Status Bacteria identified in Specimen by Culture 03/03/2024 10:21:53 No Aeromonas species or Plesiomonas species isolated. Final Test: Gastrointestinal Patho gen Panel Culture
Specimen Source: Stool
Specimen Type: Stool
Specimen Date: 03/03/2024 1021
Result Date: 03/05/2024 1001
Result Status: Final result
Resulting Lab: [facility]
[address]
[facility] [address]

CULTURE

No Aeromonas species or Plesiomonas species isolated.

Reduced normal chrissy. Clinical correlation needed.

null Performing Location [facility] [place] [address] [facility] [place] [address]
--- OUTSIDE RECORDS SUMMARY | 2024-03-23 03:16 | External Medical Summary | Summary of Care ---
Author Name Unknown Organization [facility] Address [address] [place] [address] Phone [phone] Care Team Providers Care Catering Convention Services Manager Name Role Phone Laura Tse MD Primary Care Provider + Reason for Visit * Reason Comments Vomiting Diarrhea Headache Chest Pain * Auth/Cert Specialty Diagnoses / Procedures Referred By Contac t Referred To Contact [facility] [address] [place] [address] Phone: [phone] Emergency Medicine [address] [address] Referral ID Status Reason Start Date Expiration Date Visits Re quested Visits Authorized [id number] Encounter Details Date Type Department Care Team (Late st Contact Info) Description 03/01/2024 6:39 PM EDT - 03/06/2024 12:37 PM EDT Emergency 3B [facility] 3rd Floor [address] [place] [id number] Renetta Teixeira MD [address] [place] [id number] Eusebio Shrestha MD [address] [place] [address] [phone] Slick Bryson MD [address] [place] [address] [phone] Various: KRAVS,EKG Discharge Disposition: Home - Self Care Allergies Active Allergy Reactions Criticality Noted Date Comments Erythromycin 01/09/2002 GI UPSET documented as of this encounter (statuses as of 03/07/2024) Medications Medication Sig Dispensed Refills Start Date [...] before breakfast. 30 Capsule 3 03/06/2024 Active Linzess 290 MCG Oral Capsule Take 1 Capsule by mouth daily before breakfast. 07/17/2020 4 Discontinued Vitron-C 65-125 MG Oral Tablet (Iron-Vitamin C 65-125 mg per tab) Take 1 Tablet by mouth in the morning. 4 Discontinued NexIUM 40 MG Oral Capsule Delayed Release Take 1 Capsule by mouth daily before breakfast. 09/06/2023 4 Discontinued Potassium Chloride ER 20 MEQ Oral Tablet Extended Release Take 2 Tablets by mouth in the morning and 2 Tablets before bedtime. 120 Tablet 12/31/2023 4 Discontinued Ondansetron 4 MG Oral Tablet Disintegrating (Zofran) Place 1 Tablet on tongue every 8 hours as needed for Nausea or Vomiting. dissolve on tongue. 60 Tablet 12/31/2023 4 Discontinued Loperamide HCl 2 MG Oral Capsule (Imodium) Take 1 Capsule by mouth every 6 hours as needed for Diarrhea. 30 Capsule 01/28/2024 4 Discontinued rifAXIMin 550 MG Oral Tablet (Xifaxan) Take 1 Tablet by mouth in the morning and 1 Tablet before bedtime. Do all this for 13 days. 26 Tablet 03/04/2024 4 Discontinued Potassium Chloride ER 20 MEQ Oral Tablet Extended Release Take 2 Tablets by mouth in the morning and 2 Tablets before bedtime. 120 Tablet 03/04/2024 4 Discontinued documented as of this encounter (statuses as of 03/07/2024) Active Problems Problem Noted Date Diagnosed Date Gastroparesis 03/05/2024 Irritable bowel syndrome with diarrhea Irritable bowel syndrome with diarrhea 4 Nausea, [...] as of this encounter (statuses as of 03/07/2024) Resolved Problems Problem Noted Date Diagnosed Date Resolved Date Encounter for supervision of other normal 02/27/2003 11/14/2003 Overview: ICD-10 update of inactive term Constipation 11/14/2003 Overview: ICD-10 update of inactive term URIN TRACT INFECTION NOS 08/2004 documented as of this encounter (statuses as of 03/07/2024) Immunizations Name Administration Dates Next Due TD, [...] on file documented as of this encounter Last Filed Vital Signs Vital Sign Reading Time Taken Comments Blood Pressure 98/69 03/06/2024 9:10 AM EDT Pulse 107 03/06/2024 7:38 AM EDT Temperature 36.7 C (98.1 F) 03/06/2024 7:38 AM ED T Respiratory Rate 20 03/06/2024 7:38 AM EDT Oxygen Saturation 100% 03/06/2024 7:38 AM EDT Inhaled Oxygen Concentration - - Weight 60.4 kg (133 lb 3.2 oz) 03/02/2024 12:06 AM EDT Height 162.6 cm (5' 4") 03/02/2024 12:06 AM EDT Body Mass Index 22.86 03/02/2024 12:06 AM EDT documented in this encounter Functional Status Functional Status Response [...] (15 years old or older) No 03/02/20 Cognitive Status Response Date of Assessm ent Because of a physical, menta l, or emotional condition, do you have serious difficulty concentrating, remembering, or making decisions? (5 years old or older) No 03/02/2024 documented as of this encounter Discharge Instructions * Appointments* Miriam Castro [facility] - 03/03/2024 10:36 AM EDT Laura Tse [phone] [facility], [place] [facility] [place] Office will call to schedule an appointment. * Discharge Instr - AVS* Slick Bryson MD - 03/03/2024 4:45 PM EDT Discharge Date: 03/06/24 The information below provides you with the instructions and the list of medications you need to betaking following discharge from the hospital. If you have any questions, please ask before leaving. If you have questions after leaving, you can reach us at the numbers below. YOUR HOSPITAL PROVIDERS: Discharging Provider: Slick Bryson MD Provider Department: Hospital Medicine To reach this Provider Monday through Monday (8:00 AM to 4:30 PM) for any questions or test results: Call [phone] For after-hours concerns: Call [phone] and have your provider paged, or the provider meat boner for the Department of [facility] Medicine paged. Please note, the discharging provider will not be able to provide you with any medications refills.Please discuss these with your primary care provider. Worsening Symptoms: If you have new symptoms, or your symptoms get worse, please contact your Discharge Provider or Primary Care Provider (PCP). If these providers are not available, you can go to your local [facility] or Urgent Care Clinic during their business hours. In an EMERGENCY situation: Call [phone] or go to the nearest emergency room. A BRIEF SUMMARY OF YOUR HOSPITAL STAY: You came to the hospital with: complaint of nausea, vomiting, diarrhea Your main diagnosis at discharge was: Possible irritable bowel syndrome Operations & Procedures performed: none Complications: none applicable Inpatient test results that are pending at discharge: none Advance Directive Documented: Advance Directive Does the Patient have an Advance Directive? No YOUR FOLLOW UP APPOINTMENTS: Primary Care Provider Information: PCP: Laura Tse MD [address] [place] [address] / [facility] [phone] (office) [phone] (fax) An appointment was requested with your PCP (Laura Tse MD) within 7 days. (Please take this form to this visit with your primary care physician.) You need the following studies in the future: none INSTRUCTIONS: Diet: irritable bowel syndrome diet , please refer to handout Activity: As tolerated Simethicone 80 mg 1 tablet every 6 hours as needed for gas Famotidine 20 mg 1 tablet in the morning and 1 table before bed time to reduce acid secretion Dicyclomine 20 mg 1 tablet 4 times a day as needed for abdominal pain Loperamide 2 mg 1 tablet every 6 hours as needed for diarrhea. Zofran 1 tablet on tongue every 8 hours as needed for nausea, vomiting. Potassium chloride 40 meq in the morning, 40 meq at noon and 40 meq at bed time for hypokalemia You can resume Linzess while having constipation. Additional Instructions: - Call your primary care physician or seek medical attention if dizziness, lightheadedness, nausea,vomiting, worsening abdominal pain. documented in this encounter Progress Notes * Slick Bryson MD - 03/05/2024 5:19 PM EDT Images from the original note were not included. [facility] 3B-3019/W INTERVAL HISTORY: Patient reports episodes of nausea, 3 loose bowel movents , abdominal pain. Gastric emptying study showed delayed emptying on solid gastric emptying study. Her right forearm is swollen due to IV infiltration. She is willing to get a new IV site and get IV potassium . She is reluctant to go home tonight. Objective Physical Exam Most Recent Vital Signs: BP: 115 mmHg/81 mmHg (03/05/241416) Pulse: 103 (03/05/241416) Resp: 19 (03/05/241416) Temp: 36.5 C (03/05/241416) Temp Summary: Temp Min: 36.5 C (97.7 F) Max: 36.6 C (97.9 F) SpO2: 100 % (03/05/241416) O2 flow rate: Supplemental O2 Delivery: Room Air, None (03/05/241416) Constitutional: no acute distress HEENT: normal: normocephalic, atraumatic; no masses, tenderness, or adenopathy CV: normal rate and rhythm, no murmur, gallops or rub Chest: normal respiratory effort, lungs clear to auscultation and percussion, breath sounds normal Abdomen: soft, normal bowel sounds, slight tenderness on right side. Extremities: no edema Skin: warm, dry, intact: Neuro: alert, oriented to person, place, and time, normal mental status exam, gait normal, reflexesnormal and symmetric, sensory normal Psych: normal mood and affect, nonsuicidal, judgement normal, memory normal Peripheral Line Left;Lower;Posterior Arm 22 Gauge (Active) Number of days: 0 STUDIES: Encounter Orders Labs and other studies reviewed with pertinent findings noted below: Latest Reference Range & Units 03/05/24 05:44 CBC Rpt WBC 4.00 - 10.80 K/uL 6.04 RBC 3.85 - 5.15 M/uL 4.07 HGB 12.0 - 15.3 g/dL 12.3 HCT 36.0 - 45.2 % 36.8 MCV 81.5 - 97.5 fL 90.4 MCH 27.0 - 34.0 pg 30.2 MCHC 32.0 - 36.0 g/dL 33.4 RDW 11.5 - 15.5 % 12.5 PLT 140 - 400 K/uL 319 MPV 6.6 - 11.1 fL 9.0 CBC WITH WBC DIFFERENTIAL Rpt ! Absolute Neutrophils 1.80 - 7.70 K/uL 2.47 Absolute Lymphocytes 1.00 - 4.80 K/ul 2.89 Absolute Monocytes 0.00 - 1.10 K/uL 0.49 Absolute Eosinophils 0.00 - 0.70 K/uL 0.13 Absolute Basophils 0.00 - 0.20 K/uL 0.04 !: Data is abnormal Rpt: View report in Results Review for more information Latest Reference Range & Units 03/05/24 05:44 Sodium 135 - 146 mmol/L 139 Potassium 3.5 - 5.1 mmol/L 3.3 (L) Chloride 98 - 107 mmol/L 111 (H) CO2 22 - 32 mmol/L 19 (L) BUN 6 - 20 mg/dL 4 (L) Creatinine 0.5 - 1.0 mg/dL 0.7 Estimated Glomerular Filtration Rate >=60 mL/min >90 Anion Gap 7 - 15 mmol/L 9 Glucose 70 - 120 mg/dL 94 Calcium 8.4 - 10.2 mg/dL 8.4 Magnesium 1.5 - 2.6 mg/dL 2.0 Phosphorus 2.5 - 4.8 mg/dL 2.5 (L): Data is abnormally low (H): Data is abnormally high Assessment and Plan IMPRESSION : Principal Problem: Colitis Active Problems: Fibromyalgia Dysthymic disorder Esophageal reflux Generalized anxiety disorder Nausea, vomiting and diarrhea Irritable bowel syndrome with diarrhea Irritable bowel syndrome with diarrhea Resolved Problems: * No resolved hospital problems. * DIFFERENTIAL AND PLAN: 48 yo F with hx of fibromyalgia, ADHD, constipation mixed with diarrhea presented with nausea, vomiting, diarrhea. C.diff was ruled out. CTAP noted fluid throughout colon and rectum .She had multipleBM today. Her symptoms could related with irritable bowel syndrome. Gastric emptying study showed delayed emptying of solid. Last colonoscopy was February 2023 which showed polyps ( tubular adenoma /hyperplastic polyps) and diverticulosis. GI suggested gastroparesis diet and EGD/colonoscopy as outpatient. Continue antiemetic, pain med's, IV KCL 30 meq , H2 shane, PPI,increase PO kCL 40 meq tid Discontinue Cipro/flagyl since she had multiple BM and suspected irritable bowel syndrome than colitis. C.diff and stool for GI pathogens are negative. D/c Rifaximin 550 mg bid on discharge since it was not approved by insurance. She will need definite diagnosis for irritable bowel syndrome. Continue dicyclomine 20 mg QID prn for abdominal pain Continue antidiarrhea loperamide 2 mg Q 4H prn for diarrhea, Linzess for constipation Continue Simethicone 80 mg QID for bloating, gas. PHARMACOLOGIC VTE PROPHYLAXIS: This patient does not have an active medication from one of the medication groupers. CODE STATUS: Full Code EXPECTED DISCHARGE DATE: 03/06/2024 I spent a total of 55 minutes coordinating, documenting, and providing care for this patient excluding time spent in the performance of separately billed services. * Neelima Roth PA-C - 03/05/2024 11:30 AM EDT PROGRESS NOTE - Gastroenterology Service [facility] [place] [address] Name: Gavi Sim Location: [facility] 3B-3019/W Date: 03/05/2024 Time: 11:30 AM SUBJECTIVE: The patient was seen and examined, chart reviewed. No acute events overnight. Patient continues to have some diarrhea. She says she has about 30 diarrhea episodes a day. There were none documented overnight, and she had 1 so far today. Tolerated her p.o. intake for gastric emptying study which is pending. No current nausea vomiting, does have intermittent abd pain. ROS: Constitutional: No report of fever, chills or sweats Skin: No jaundice or rashes. Cardiac: No chest pain. Pulmonary: No cough or shortness of breath GI: Per HPI, otherwise negative. OBJECTIVE: Vital Signs Last 24 Hours: Systolic BP: Most Recent Systolic BP Av.7 mmHg Min: 87 mmHg Max: 109 mmHg Temperature: Most Recent Temperature Av.6 C Min: 36.5 C Max: 36.61 C Pulse: Pulse Av Min: 85 Max: 104 Respirations: Resp Av Min: 16 Max: 19 SpO2: SpO2 Av.3 % Min: 99 % Max: 100 % Constitutional: No acute distress. HEENT: Sclera anicteric. Chest: Normal resp effort Neurology: Awake and alert. Oriented to person, place, and time LABS: Labs reviewed as indicated below: Recent Results (from the past 24 hour(s)) BASIC METABOLIC PANEL Collection Time: 03/05/24 5:44 AM Result Value Ref Range BUN 4 (L) 6 - 20 mg/dL Creatinine 0.7 0.5 - 1.0 mg/dL Estimated Glomerular Filtration Rate >90 >=60 mL/min Sodium 139 135 - 146 mmol/L Potassium 3.3 (L) 3.5 - 5.1 mmol/L Chloride 111 (H) 98 - 107 mmol/L CO2 19 (L) 22 - 32 mmol/L Anion Gap 9 7 - 15 mmol/L Glucose 94 70 - 120 mg/dL Calcium 8.4 8.4 - 10.2 mg/dL MAGNESIUM Collection Time: 03/05/24 5:44 AM Result Value Ref Range Magnesium 2.0 1.5 - 2.6 mg/dL PHOSPHORUS Collection Time: 03/05/24 5:44 AM Result Value Ref Range Phosphorus 2.5 2.5 - 4.8 mg/dL CBC Collection Time: 03/05/24 5:44 AM Result Value Ref Range WBC 6.04 4.00 - 10.80 K/uL RBC 4.07 3.85 - 5.15 M/uL HGB 12.3 12.0 - 15.3 g/dL HCT 36.8 36.0 - 45.2 % MCV 90.4 81.5 - 97.5 fL MCH 30.2 27.0 - 34.0 pg MCHC 33.4 32.0 - 36.0 g/dL RDW 12.5 11.5 - 15.5 % PLT 319 140 - 400 K/uL MPV 9.0 6.6 - 11.1 fL nRBCs 0 <=0 /100 WBCs DIFFERENTIAL, AUTOMATED Collection Time: 03/05/24 5:44 AM Result Value Ref Range WBC 6.04 4.00 - 10.80 K/uL Neutrophils % 40.9 40.0 - 75.0 % Lymphocytes % 47.8 (H) 18.0 - 42.0 % Monocytes % 8.1 1.0 - 11.0 % Eosinophils % 2.2 0.0 - 6.0 % Basophils % 0.7 0.0 - 2.0 % Immature Granulocytes % 0.3 0.0 - 2.0 % Absolute Neutrophils 2.47 1.80 - 7.70 K/uL Absolute Lymphocytes 2.89 1.00 - 4.80 K/ul Absolute Monocytes 0.49 0.00 - 1.10 K/uL Absolute Eosinophils 0.13 0.00 - 0.70 K/uL Absolute Basophils 0.04 0.00 - 0.20 K/uL Absolute Immature Granulocytes 0.02 0.00 - 0.20 K/uL IMAGING: XR ABDOMEN 1 VIEW Final Result PROCEDURE INFORMATION: Exam: XR Abdomen Exam date and time: 03/03/2024 6:31 PM Age: 48 years old Clinical indication: Nausea; Abdominal pain; Generalized; Additional info: Vomiting, abd pain TECHNIQUE: Imaging protocol: Radiologic exam of the abdomen. Views: Frontal supine view of the abdomen. 1 View. COMPARISON: CT ABD/PELVIS W IV CONTRAST - WO ORAL CONTRAST 03/01/2024 10:01 PM FINDINGS: Gastrointestinal tract: Prominent gas-filled loops of colon with likely intraluminal fluid as better visualized on prior recent CT. Nonobstructive bowel gas pattern. Bones/joints: Unremarkable. IMPRESSION IMPRESSION: Nonobstructive bowel gas pattern. THIS DOCUMENT HAS BEEN ELECTRONICALLY SIGNED BY ALVINO SEYMOUR MD CT ABD/PELVIS W IV CONTRAST - WO ORAL CONTRAST Final Result PROCEDURE INFORMATION: Exam: CT Abdomen And Pelvis With Contrast Exam date and time: 03/01/2024 10:01 PM Age: 48 years old Clinical indication: Abdominal pain; Additional info: Vomiting, diarrhea, ongoing pain. History of colitis per prior CT TECHNIQUE: Imaging protocol: Computed tomography of the abdomen and pelvis with contrast. Radiation optimization: All CT scans at this facility use at least one of these dose optimization techniques: automated exposure control; mA and/or kV adjustment per patient size (includes targeted exams where dose is matched to clinical indication); or iterative reconstruction. Contrast material: ISOVUE 370; Contrast volume: 80 ml; Contrast route: INTRAVENOUS (IV); COMPARISON: CT ABD/PELVIS W IV CONTRAST - WO ORAL CONTRAST 12/28/2023 4:05 PM FINDINGS: Liver: No mass. Gallbladder and biliary ducts: No calcified stones. No gross ductal dilation. Pancreas: No ductal dilation. No mass . Spleen: No splenomegaly or suspicious lesions. Adrenal glands: No suspicious mass. Kidneys and ureters: No renal masses or hydronephrosis bilaterally. Stomach and bowel: Fluid-filled colon and rectum; mild rectal mucosal hyperemia. Rectal hyperemia more pronounced than prior. No significant colonic wall thickening. No focal pathology in the small bowel. Appendix: No evidence of appendicitis. Intraperitoneal space: No free air. No significant fluid collection. Vasculature: No abdominal aortic aneurysm. Lymph nodes: No significantly enlarged lymph nodes. Urinary bladder: No gross wall thickening. Reproductive: Unremarkable as visualized. Bones/joints: No acute fracture or subluxation. Soft tissues: Bilateral breast implants. IMPRESSION IMPRESSION: Mild proctitis worsened since prior. Fluid throughout colon and rectum compatible with a mild colitis. THIS DOCUMENT HAS BEEN ELECTRONICALLY SIGNED BY DINORAH SAMUELS MD XR ABDOMEN 2 VIEWS Final Result PROCEDURE INFORMATION: Exam: XR Abdomen Exam date and time: 03/01/2024 7:46 PM Age: 48 years old Clinical indication: Other: Ruq pain; Additional info: Vomiting, diarrhea, abdominal pain TECHNIQUE: Imaging protocol: Radiologic exam of the abdomen. Views: 2 Views. Upright and supine views. COMPARISON: CT ABD/PELVIS W IV CONTRAST - WO ORAL CONTRAST 12/28/2023 4:05 PM FINDINGS: Gastrointestinal tract: Paucity of gas in small bowel. Gas in colon without pathologic dilation. Scattered colonic air-fluid levels Intraperitoneal space: No free air. Bones/joints: Unremarkable for age. IMPRESSION IMPRESSION: Paucity of gas in small bowel. Gas in colon without pathologic dilation. Colonic air-fluid levels compatible with history of diarrhea. THIS DOCUMENT HAS BEEN ELECTRONICALLY SIGNED BY DINORAH SAMUELS MD XR CHEST 2 VIEWS Final Result PROCEDURE INFORMATION: Exam: XR Chest Exam date and time: 03/01/2024 6:24 PM Age: 48 years old Clinical indication: Pain; Chest pressure; Additional info: Chest pain TECHNIQUE: Imaging protocol: Radiologic exam of the chest. Views: 2 views. COMPARISON: DX XR CHEST 1 VIEW 12/28/2023 2:16 PM FINDINGS: Lungs: No consolidation. Pleural spaces: No pleural effusion. No pneumothorax. Heart/Mediastinum: No cardiomegaly. Bones/joints: No acute fracture. Soft tissues: Bilateral breast implants. IMPRESSION IMPRESSION: No acute cardiopulmonary pathology. THIS DOCUMENT HAS BEEN ELECTRONICALLY SIGNED BY DINORAH SAMUELS MD NM GASTRIC EMPTYING STUDY SOLID (Results Pending) IMPRESSION: 48 year old female with chronic intermittent nausea/vomiting, abdominal pain, diarrhea,alt w/ constipation. CT imaging w/ nonspecific colitis, proctitis, prior imaging also noted gastritis. Tolerating her PO intake. GES pending. RECOMMENDATIONS: - Await GES - EGD/colonoscopy OP as planned; will try to move this up sooner - Would continue Linzess - Can consider Bentyl - Would avoid narcotics, Imodium as this can worsen symptoms I have discussed the case with my attending, Dr Valero. Associated attestation - Ata Valero MD - 03/05/2024 2:49 PM EDT I performed a history and physical examination of the patient, including specifically on physical exam - soft abomen. I have discussed the patient's management with ROLAN Aggarwal.. Please refer to the physician office support assistant's note for the documented findings and plan of care. - gastroparetic diet, colonoscopy with random biopsies an upper endoscopy as well both his outpatient * Slick Bryson MD - 03/04/2024 4:00 PM EDT Images from the original note were not included. [facility] 3B-3019/W INTERVAL HISTORY: Patient continues to have multiple loose liquid BM Nausea, abdominal pain improves with IM Tigan She said she always has stress with family members. Objective Physical Exam Most Recent Vital Signs: BP: 106 mmHg/64 mmHg (03/04/241530) Pulse: 104 (03/04/241530) Resp: 16 (03/04/241530) Temp: 36.61 C (03/04/241530) Temp Summary: Temp Min: 36.5 C (97.7 F) Max: 36.7 C (98.1 F) SpO2: 99 % (03/04/241530) O2 flow rate: Supplemental O2 Delivery: Room Air, None (03/04/241530) Constitutional: no acute distress HEENT: normal: normocephalic, atraumatic; no masses, tenderness, or adenopathy CV: normal rate and rhythm, no murmur, gallops or rub Chest: normal respiratory effort, lungs clear to auscultation and percussion, breath sounds normal Abdomen: soft, normal bowel sounds, no tenderness. Extremities: no edema Skin: warm, dry, intact: Neuro: alert, oriented to person, place, and time, normal mental status exam, gait normal, reflexesnormal and symmetric, sensory normal Psych: normal mood and affect, nonsuicidal, judgement normal, memory normal Peripheral Line Lower;Posterior;Right Arm 20 Gauge (Active) Number of days: 3 STUDIES: Encounter Orders Labs and other studies reviewed with pertinent findings noted below: Latest Reference Range & Units 03/04/24 05:25 Sodium 135 - 146 mmol/L 137 Potassium 3.5 - 5.1 mmol/L 3.4 (L) Chloride 98 - 107 mmol/L 111 (H) CO2 22 - 32 mmol/L 18 (L) BUN 6 - 20 mg/dL 3 (L) Creatinine 0.5 - 1.0 mg/dL 0.7 Estimated Glomerular Filtration Rate >=60 mL/min >90 Anion Gap 7 - 15 mmol/L 8 Glucose 70 - 120 mg/dL 94 Calcium 8.4 - 10.2 mg/dL 8.4 Magnesium 1.5 - 2.6 mg/dL 2.1 (L): Data is abnormally low (H): Data is abnormally high Latest Reference Range & Units 03/04/24 05:24 CBC Rpt ! WBC 4.00 - 10.80 K/uL 6.66 RBC 3.85 - 5.15 M/uL 3.84 HGB 12.0 - 15.3 g/dL 11.8 (L) HCT 36.0 - 45.2 % 35.3 (L) MCV 81.5 - 97.5 fL 91.9 MCH 27.0 - 34.0 pg 30.7 MCHC 32.0 - 36.0 g/dL 33.4 RDW 11.5 - 15.5 % 12.5 PLT 140 - 400 K/uL 306 MPV 6.6 - 11.1 fL 9.1 CBC WITH WBC DIFFERENTIAL Rpt ! Absolute Neutrophils 1.80 - 7.70 K/uL 3.12 Absolute Lymphocytes 1.00 - 4.80 K/ul 2.87 Absolute Monocytes 0.00 - 1.10 K/uL 0.52 Absolute Eosinophils 0.00 - 0.70 K/uL 0.10 Absolute Basophils 0.00 - 0.20 K/uL 0.04 !: Data is abnormal (L): Data is abnormally low Rpt: View report in Results Review for more information Assessment and Plan IMPRESSION : Principal Problem: Colitis Active Problems: Fibromyalgia Dysthymic disorder Esophageal reflux Generalized anxiety disorder Nausea, vomiting and diarrhea Irritable bowel syndrome with diarrhea Irritable bowel syndrome with diarrhea Resolved Problems: * No resolved hospital problems. * DIFFERENTIAL AND PLAN: 48 yo F with hx of fibromyalgia, ADHD, constipation mixed with diarrhea presented with nausea, vomiting, diarrhea. C.diff was ruled out. CTAP noted fluid throughout colon and rectum .She had multipleBM today. Her symptoms could related with irritable bowel syndrome. Last colonoscopy was February 2023 which showed polyps ( tubular adenoma /hyperplastic polyps) and diverticulosis. GI suggested gastricemptying study and EGD/colonoscopy as outpatient. Continue antiemetic, pain med's, IV fluid , H2 shane, PPI Discontinue Cipro/flagyl since she had multiple BM and suspected irritable bowel syndrome than colitis. C.diff and stool for GI pathogens are negative. Add Rifaximin 550 mg bid for 14 days on 03/03/24. Add dicyclomine 20 mg QID prn for abdominal pain Continue antidiarrhea loperamide 2 mg Q 4H prn Continue KCL 40 meq bid Continue Simethicone 80 mg QID for bloating, gas. Replace electrolytes as needed , keep K > 4, Mg >2 NPO after midnight for gastric emptying study PHARMACOLOGIC VTE PROPHYLAXIS: This patient does not have an active medication from one of the medication groupers. CODE STATUS: Full Code EXPECTED DISCHARGE DATE: 03/05/2024 I spent a total of 55 minutes coordinating, documenting, and providing care for this patient excluding time spent in the performance of separately billed services. * Slick Bryson MD - 03/03/2024 12:58 PM EDT Images from the original note were not included. [facility] 3B-3019/W INTERVAL HISTORY: She had multiple loose BM today with reported bloating and abdominal pain Denies nausea, vomiting, fever, chills. Objective Physical Exam Most Recent Vital Signs: BP: 101 mmHg/54 mmHg (03/03/24730) Pulse: 84 (03/03/24722) Resp: 16 (03/03/24722) Temp: 36.78 C (03/03/24722) Temp Summary: Temp Min: 36.6 C (97.9 F) Max: 36.8 C (98.2 F) SpO2: 97 % (03/03/24722) O2 flow rate: Supplemental O2 Delivery: Room Air, None (03/03/24722) Constitutional: no acute distress HEENT: normal: normocephalic, atraumatic; no masses, tenderness, or adenopathy CV: normal rate and rhythm, no murmur, gallops or rub Chest: normal respiratory effort, lungs clear to auscultation and percussion, breath sounds normal Abdomen: soft, normal bowel sounds, diffuse tenderness Extremities: no edema Skin: warm, dry, intact: Neuro: alert, oriented to person, place, and time, normal mental status exam, gait normal, reflexesnormal and symmetric, sensory normal Psych: normal mood and affect, nonsuicidal, judgement normal, memory normal Peripheral Line Lower;Posterior;Right Arm 20 Gauge (Active) Number of days: 2 STUDIES: Encounter Orders Labs and other studies reviewed with pertinent findings noted below: Latest Reference Range & Units 03/03/24 07:55 Sodium 135 - 146 mmol/L 140 Potassium 3.5 - 5.1 mmol/L 3.8 Chloride 98 - 107 mmol/L 109 (H) CO2 22 - 32 mmol/L 23 BUN 6 - 20 mg/dL 5 (L) Creatinine 0.5 - 1.0 mg/dL 0.8 Estimated Glomerular Filtration Rate >=60 mL/min >90 Anion Gap 7 - 15 mmol/L 8 Glucose 70 - 120 mg/dL 102 Calcium 8.4 - 10.2 mg/dL 8.0 (L) Magnesium 1.5 - 2.6 mg/dL 2.0 Phosphorus 2.5 - 4.8 mg/dL 2.7 Protein 6.0 - 8.3 g/dL 5.5 (L) (H): Data is abnormally high (L): Data is abnormally low Latest Reference Range & Units 03/03/24 07:55 CBC Rpt ! WBC 4.00 - 10.80 K/uL 6.90 RBC 3.85 - 5.15 M/uL 3.69 HGB 12.0 - 15.3 g/dL 11.4 (L) HCT 36.0 - 45.2 % 34.1 (L) MCV 81.5 - 97.5 fL 92.4 MCH 27.0 - 34.0 pg 30.9 MCHC 32.0 - 36.0 g/dL 33.4 RDW 11.5 - 15.5 % 12.4 PLT 140 - 400 K/uL 289 MPV 6.6 - 11.1 fL 9.0 CBC WITH WBC DIFFERENTIAL Rpt ! Absolute Neutrophils 1.80 - 7.70 K/uL 3.58 Absolute Lymphocytes 1.00 - 4.80 K/ul 2.69 Absolute Monocytes 0.00 - 1.10 K/uL 0.50 Absolute Eosinophils 0.00 - 0.70 K/uL 0.09 Absolute Basophils 0.00 - 0.20 K/uL 0.03 !: Data is abnormal (L): Data is abnormally low Rpt: View report in Results Review for more information Assessment and Plan IMPRESSION : Principal Problem: Colitis Active Problems: Fibromyalgia Dysthymic disorder Esophageal reflux Generalized anxiety disorder Nausea, vomiting and diarrhea Resolved Problems: * No resolved hospital problems. * DIFFERENTIAL AND PLAN: 48 yo F with hx of fibromyalgia, ADHD, constipation mixed with diarrhea presented with nausea, vomiting, diarrhea. C.diff was ruled out. CTAP noted fluid throughout colon and rectum .She had multipleBM today. Her symptoms could related with irritable bowel syndrome. Last colonoscopy was February 2023 which showed polyps ( tubular adenoma /hyperplastic polyps) and diverticulosis. GI consult for further evaluation. Continue antiemetic, pain med's, IV fluid , H2 shane, PPI Discontinue Cipro/flagyl since she had multiple BM and suspected irritable bowel syndrome than colitis. Add Rifaximin 550 mg bid for 14 days Add dicyclomine 20 mg QID prn for abdominal pain Continue antidiarrhea loperamide 2 mg Q 4H prn Continue KCL 40 meq bid Continue Simethicone 80 mg QID for bloating, gas. Replace electrolytes as needed , keep K > 4, Mg >2 PHARMACOLOGIC VTE PROPHYLAXIS: This patient does not have an active medication from one of the medication groupers. CODE STATUS: Full Code EXPECTED DISCHARGE DATE: 03/03/2024 I spent a total of 55 minutes coordinating, documenting, and providing care for this patient excluding time spent in the performance of separately billed services. * Slick Bryson MD - 03/02/2024 3:36 PM EDT Images from the original note were not included. [facility] 3B-3019/W INTERVAL HISTORY: She had watery diarrhea, nausea, vomiting, diffuse abdominal pain..Afebrile. Denies bloody bowel movement, melena, hematemesis, urinary symptoms. Objective Physical Exam Most Recent Vital Signs: BP: 101 mmHg/65 mmHg (03/02/241516) Pulse: 88 (03/02/241516) Resp: 16 (03/02/241516) Temp: 36.72 C (03/02/241516) Temp Summary: Temp Min: 35.9 C (96.6 F) Max: 37 C (98.6 F) SpO2: 98 % (03/02/241516) O2 flow rate: Supplemental O2 Delivery: Room Air, None (03/02/241516) Constitutional: no acute distress HEENT: normal: normocephalic, atraumatic; no masses, tenderness, or adenopathy CV: normal rate and rhythm, no murmur, gallops or rub Chest: normal respiratory effort, lungs clear to auscultation and percussion, breath sounds normal Abdomen: soft, normal bowel sounds, diffuse tenderness Extremities: no edema Skin: warm, dry, intact: Neuro: alert, oriented to person, place, and time, normal mental status exam, gait normal, reflexesnormal and symmetric, sensory normal Psych: normal mood and affect, nonsuicidal, judgement normal, memory normal Peripheral Line Lower;Posterior;Right Arm 20 Gauge (Active) Number of days: 1 STUDIES: Encounter Orders Labs and other studies reviewed with pertinent findings noted below: Latest Reference Range & Units 03/02/24 08:32 CBC Rpt WBC 4.00 - 10.80 K/uL 9.73 RBC 3.85 - 5.15 M/uL 4.14 HGB 12.0 - 15.3 g/dL 13.0 HCT 36.0 - 45.2 % 39.0 MCV 81.5 - 97.5 fL 94.2 MCH 27.0 - 34.0 pg 31.4 MCHC 32.0 - 36.0 g/dL 33.3 RDW 11.5 - 15.5 % 12.4 PLT 140 - 400 K/uL 326 MPV 6.6 - 11.1 fL 9.0 Rpt: View report in Results Review for more information Latest Reference Range & Units 03/02/24 08:32 Sodium 135 - 146 mmol/L 137 Potassium 3.5 - 5.1 mmol/L 4.1 Chloride 98 - 107 mmol/L 105 CO2 22 - 32 mmol/L 19 (L) BUN 6 - 20 mg/dL 13 Creatinine 0.5 - 1.0 mg/dL 0.8 Estimated Glomerular Filtration Rate >=60 mL/min >90 Anion Gap 7 - 15 mmol/L 13 Glucose 70 - 120 mg/dL 112 Calcium 8.4 - 10.2 mg/dL 8.5 (L): Data is abnormally low Assessment and Plan IMPRESSION : Principal Problem: Colitis Active Problems: Fibromyalgia Dysthymic disorder Esophageal reflux Generalized anxiety disorder Nausea, vomiting and diarrhea Resolved Problems: * No resolved hospital problems. * DIFFERENTIAL AND PLAN: 48 yo F with hx of fibromyalgia, ADHD, constipation mixed with diarrhea presented with nausea, vomiting, diarrhea. C.diff was ruled out. CTAP noted fluid throughout colon and rectum . Her symptoms could related with irritable bowel syndrome. Last colonoscopy was February 2023 which showed polyps ( tubular adenoma /hyperplastic polyps) and diverticulosis. GI consult for further evaluation. Continue antiemetic, pain med's, IV fluid , H2 shane, PPI Cipro/flagyl to cover possible colitis add loperamide 2 mg Q 4H prn for diarrhea. Replace electrolytes as needed PHARMACOLOGIC VTE PROPHYLAXIS: This patient does not have an active medication from one of the medication groupers. CODE STATUS: Full Code EXPECTED DISCHARGE DATE: 03/03/2024 I spent a total of 55 minutes coordinating, documenting, and providing care for this patient excluding time spent in the performance of separately billed services. documented in this encounter H&P Notes * Eusebio Shrestha MD - 03/01/2024 11:52 PM EDT Images from the original note were not included. [facility] PRESENTING PROBLEM: nausea, vomiting, diarrhea HPI: This is a 48 yo woman with below pmh that includes fibromyalgia, dysthymia, gerd, anxiety. Shewas admitted 2 months ago and last month with same symptoms of nausea, vomiting, and diarrhea. Usually these episodes last several days and often she becomes very hypokalemic. So last time, she was told to come to ED as soon as it starts. She denies eating udercooked meat or other strange foods. Den ies sick contacts. Diarrhea is watery and has occurred 6 times today. She was given apple juice in ED and soon afterwards had episode of vomiting and diarrhea. No fever. She is to have GI appointmentin April. Last colonoscopy was 1 year ago and polyps were removed but there was no mention of inflammatory bowel disease. Of note, she has constipation intermittently with diarrhea and takes linzessas needed. No cough or respiratory symptoms. Subjective Patient's past history, medications, and allergies were reviewed. Objective Physical Exam Most Recent Vital Signs: BP: 111 mmHg/65 mmHg (03/01/242329) Pulse: 92 (03/01/242329) Resp: 20 (03/01/242329) Temp: 35.89 C (03/01/24 1806) Temp Summary: Temp Min: 35.9 C (96.6 F) Max: 35.9 C (96.6 F) SpO2: 98 % (03/01/24 2100) O2 flow rate: Supplemental O2 Delivery: Constitutional: no acute distress HEENT: normal: normocephalic, atraumatic; Eyes: sclera and conjunctiva normal Neck: supple, CV: normal rate Chest: normal respiratory effort, lungs clear to auscultation Abdomen: soft, bowel sounds normal, diffuse tenderness Extremities: no edema Skin: warm, dry, intact: Neuro: alert, oriented to person, place, non-focal Peripheral Line Lower;Posterior;Right Arm 20 Gauge (Active) Number of days: 0 STUDIES: Encounter Orders Labs and other studies reviewed with pertinent findings noted below: Results for orders placed or performed during the hospital encounter of 03/01/24 COMPREHENSIVE METABOLIC PANEL Result Value Ref Range BUN 19 6 - 20 mg/dL Creatinine 1.1 (H) 0.5 - 1.0 mg/dL Estimated Glomerular Filtration Rate 62 >=60 mL/min Sodium 137 135 - 146 mmol/L Potassium 4.3 3.5 - 5.1 mmol/L Chloride 101 98 - 107 mmol/L CO2 22 22 - 32 mmol/L Anion Gap 14 7 - 15 mmol/L Glucose 102 70 - 120 mg/dL Albumin 4.9 3.8 - 5.0 g/dL AST 23 10 - 35 U/L Alkaline Phosphatase 159 (H) 35 - 130 U/L Bilirubin, Total 0.2 <=1.2 mg/dL Calcium 10.2 8.4 - 10.2 mg/dL Protein 8.8 (H) 6.0 - 8.3 g/dL ALT 25 10 - 35 U/L TROPONIN T, HIGH SENSITIVITY Result Value Ref Range Troponin T, High Sensitivity <6 <=14 ng/L TROPONIN T, HIGH SENSITIVITY Result Value Ref Range Troponin T, High Sensitivity <6 <=14 ng/L BETA-HCG, QUANTITATIVE Result Value Ref Range Beta-HCG, Quantitative 3.9 (H) <=1.0 mIU/mL RESPIRATORY PATHOGEN PANEL, PCR Result Value Ref Range Adenovirus by PCR Negative Negative Coronavirus 229E by PCR Negative Negative Coronavirus HKU1 by PCR Negative Negative Coronavirus NL63 by PCR Negative Negative Coronavirus OC43 by PCR Negative Negative Coronavirus SARS-CoV-2 by PCR Negative Negative Human Metapneumovirus by PCR Negative Negative Rhinovirus/Enterovirus by PCR Negative Negative Influenza A Virus by PCR Negative Negative Influenza B Virus by PCR Negative Negative Parainfluenza Virus 1 by PCR Negative Negative Parainfluenza Virus 2 by PCR Negative Negative Parainfluenza Virus 3 by PCR Negative Negative Parainfluenza Virus 4 by PCR Negative Negative Respiratory Syncytial Virus by PCR Negative Negative Bordetella pertussis by PCR Negative Negative Chlamydia pneumoniae by PCR Negative Negative Mycoplasma pneumoniae by PCR Negative Negative Bordetella parapertussis by PCR Negative Negative CBC Result Value Ref Range WBC 13.40 (H) 4.00 - 10.80 K/uL RBC 5.64 3.85 - 5.15 M/uL HGB 17.4 (H) 12.0 - 15.3 g/dL HCT 51.4 (H) 36.0 - 45.2 % MCV 91.1 81.5 - 97.5 fL MCH 30.9 27.0 - 34.0 pg MCHC 33.9 32.0 - 36.0 g/dL RDW 12.3 11.5 - 15.5 % PLT 448 (H) 140 - 400 K/uL MPV 8.9 6.6 - 11.1 fL nRBCs 0 <=0 /100 WBCs DIFFERENTIAL, AUTOMATED Result Value Ref Range WBC 13.40 (H) 4.00 - 10.80 K/uL Neutrophils % 68.9 40.0 - 75.0 % Lymphocytes % 24.7 18.0 - 42.0 % Monocytes % 5.4 1.0 - 11.0 % Eosinophils % 0.2 0.0 - 6.0 % Basophils % 0.4 0.0 - 2.0 % Immature Granulocytes % 0.4 0.0 - 2.0 % Absolute Neutrophils 9.23 (H) 1.80 - 7.70 K/uL Absolute Lymphocytes 3.31 1.00 - 4.80 K/ul Absolute Monocytes 0.73 0.00 - 1.10 K/uL Absolute Eosinophils 0.03 0.00 - 0.70 K/uL Absolute Basophils 0.05 0.00 - 0.20 K/uL Absolute Immature Granulocytes 0.05 0.00 - 0.20 K/uL MAGNESIUM Result Value Ref Range Magnesium 2.1 1.5 - 2.6 mg/dL URINALYSIS, REFLEX TO MICROSCOPIC Result Value Ref Range Color, Urine Yellow Light Yellow, Yellow, Dark Yellow Clarity, Urine Clear Clear Glucose, Urine Negative Negative mg/dL Bilirubin, Urine Negative Negative Ketone, Urine Negative Negative mg/dL Specific [place], Urine 1.027 1.003 - 1.030 Blood, Urine Negative Negative pH, Urine 6.0 5.0 - 7.5 Units Protein, Urine Trace (A) Negative mg/dL Urobilinogen, Urine 0.2 0.2, 1.0 mg/dL Nitrite, Urine Negative Negative Esterase, Urine Negative Negative Comment, Urine TOXICOLOGY, URINE SCREEN W/O CONFIRMATION Result Value Ref Range Amphetamines Screen, U Negative Negative Benzodiazepines Screen, U Positive (A) Negative Cannabinoids Screen, U Negative Negative Cocaine Metabolite Screen, U Negative Negative Fentanyl Screen, U Negative Negative Hydrocodone Screen, U Negative Negative Methadone Metabolite Screen, U Negative Negative Morphine/Codeine Screen, U Positive (A) Negative Oxycodone Screen, U Negative Negative CT ABD/PELVIS W IV CONTRAST - WO ORAL CONTRAST Final Result PROCEDURE INFORMATION: Exam: CT Abdomen And Pelvis With Contrast Exam date and time: 03/01/2024 10:01 PM Age: 48 years old Clinical indication: Abdominal pain; Additional info: Vomiting, diarrhea, ongoing pain. History of colitis per prior CT TECHNIQUE: Imaging protocol: Computed tomography of the abdomen and pelvis with contrast. Radiation optimization: All CT scans at this facility use at least one of these dose optimization techniques: automated exposure control; mA and/or kV adjustment per patient size (includes targeted exams where dose is matched to clinical indication); or iterative reconstruction. Contrast material: ISOVUE 370; Contrast volume: 80 ml; Contrast route: INTRAVENOUS (IV); COMPARISON: CT ABD/PELVIS W IV CONTRAST - WO ORAL CONTRAST 12/28/2023 4:05 PM FINDINGS: Liver: No mass. Gallbladder and biliary ducts: No calcified stones. No gross ductal dilation. Pancreas: No ductal dilation. No mass . Spleen: No splenomegaly or suspicious lesions. Adrenal glands: No suspicious mass. Kidneys and ureters: No renal masses or hydronephrosis bilaterally. Stomach and bowel: Fluid-filled colon and rectum; mild rectal mucosal hyperemia. Rectal hyperemia more pronounced than prior. No significant colonic wall thickening. No focal pathology in the small bowel. Appendix: No evidence of appendicitis. Intraperitoneal space: No free air. No significant fluid collection. Vasculature: No abdominal aortic aneurysm. Lymph nodes: No significantly enlarged lymph nodes. Urinary bladder: No gross wall thickening. Reproductive: Unremarkable as visualized. Bones/joints: No acute fracture or subluxation. Soft tissues: Bilateral breast implants. IMPRESSION IMPRESSION: Mild proctitis worsened since prior. Fluid throughout colon and rectum compatible with a mild colitis. THIS DOCUMENT HAS BEEN ELECTRONICALLY SIGNED BY DINORAH SAMUELS MD XR ABDOMEN 2 VIEWS Final Result PROCEDURE INFORMATION: Exam: XR Abdomen Exam date and time: 03/01/2024 7:46 PM Age: 48 years old Clinical indication: Other: Ruq pain; Additional info: Vomiting, diarrhea, abdominal pain TECHNIQUE: Imaging protocol: Radiologic exam of the abdomen. Views: 2 Views. Upright and supine views. COMPARISON: CT ABD/PELVIS W IV CONTRAST - WO ORAL CONTRAST 12/28/2023 4:05 PM FINDINGS: Gastrointestinal tract: Paucity of gas in small bowel. Gas in colon without pathologic dilation. Scattered colonic air-fluid levels Intraperitoneal space: No free air. Bones/joints: Unremarkable for age. IMPRESSION IMPRESSION: Paucity of gas in small bowel. Gas in colon without pathologic dilation. Colonic air-fluid levels compatible with history of diarrhea. THIS DOCUMENT HAS BEEN ELECTRONICALLY SIGNED BY DINORAH SAMUELS MD XR CHEST 2 VIEWS Final Result PROCEDURE INFORMATION: Exam: XR Chest Exam date and time: 03/01/2024 6:24 PM Age: 48 years old Clinical indication: Pain; Chest pressure; Additional info: Chest pain TECHNIQUE: Imaging protocol: Radiologic exam of the chest. Views: 2 views. COMPARISON: DX XR CHEST 1 VIEW 12/28/2023 2:16 PM FINDINGS: Lungs: No consolidation. Pleural spaces: No pleural effusion. No pneumothorax. Heart/Mediastinum: No cardiomegaly. Bones/joints: No acute fracture. Soft tissues: Bilateral breast implants. IMPRESSION IMPRESSION: No acute cardiopulmonary pathology. THIS DOCUMENT HAS BEEN ELECTRONICALLY SIGNED BY DINORAH SAMUELS MD I personally reviewed her ct abd: she has fluid filled loops of bowel but no severe stranding or bowel thickening is seen in bowel other than rectum. Assessment and Plan IMPRESSION: Principal Problem: Colitis Active Problems: Fibromyalgia Dysthymic disorder Esophageal reflux Generalized anxiety disorder Nausea, vomiting and diarrhea Resolved Problems: * No resolved hospital problems. * DIFFERENTIAL AND PLAN: I suspect patient has irritable bowel syndrome from her description of constipation mixed with diarrhea. Proctitis should be further investigated and will consult gi. Perhaps either tour manager or surgeon can look at her rectum since this is where wall thickening. -observe on med-surg -check stool pathogen panel; continue oral abx for now -ivf -anti-emetic, pain medication -consult to gi -continue other home meds PHARMACOLOGIC VTE PROPHYLAXIS: scd CODE STATUS: Full Code EXPECTED DISCHARGE DATE: 1-2 days or more I spent a total of 55 minutes coordinating, documenting, and providing care for this patient excluding time spent in the performance of separately billed services. documented in this encounter Procedure Notes * Jim Cox DO - 03/01/2024 6:06 PM EDTAssociated Order(s): EKG REASON FOR STUDY: CHEST PAIN CONCLUSIONS: Sinus tachycardia Possible Left atrial enlargement Borderline ECG When compared with ECG of 26-Jan-2024 18:46, T wave inversion no longer evident in Inferior leads T wave inversion less evident in Anterior-lateral leads Ventricular Rate: 113 Atrial Rate: 113 TX Interval: 116 QRS Duration: 72 QT/QTc: 322/441 ms P-R-T [place]: 50 : 77 : 44 degrees documented in this encounter Consult Notes * Cate Ernandez RD - 03/06/2024 8:56 AM EDTAssociated Order(s): NUTRITION SERVICES (DIETITIAN) CONSULT IP CLINICAL NUTRITION ADULT RISK ASSESSMENT [address] [id number] Name: Gavi Sim Location: [facility] 3B-3019/W Date: 03/06/2024 Time: 8:56 AM How patient was identified (select 2): date and Name Gavi Sim is a 48 year old female being assessed for clinical nutrition risk related to consultby provider and education Primary diagnosis: Colitis Other pertinent information: Met patient at bedside for gastroparesis nutrition therapy education. Patient's mom has gastroparesis, so she is familiar with it. Patient reports appetite good, but she tends to experience stomachache, vomiting, or diarrhea after meals. Denies N/V, constipation. No chewing or swallowing difficulties. Patient states weight stable. Usual body weight around 130 lbs (59.1 kg). Some weight gain is noted per EMR. Patient understands the gastroparesis nutrition therapy education and able to identify 3 foods that are recommended. At this time, patient has no further nutrition related question. Anthropometrics Measurements Admission weight (for dietitians): 57.9 kg Height: 162.6 cm (5' 4") (03/02/245) Weight: 60.4 kg (133 lb 3.2 oz) (03/02/245) BMI: 22.85 (03/02/245) Usual Body Weight or EDW for Dialysis Patients: 130 lbs (59.1 kg) per patient Diet: Regular Previously followed diet: regular Food Allergies/Intolerances: NKFA Oral Nutrition Supplement (ONS): none Pertinent medications/vitamins/minerals/supplements: isolyte, PPI, omeprazole, potassium chloride RISK FACTORS: Adult Energy Intake: No significant decrease Interpretation of Weight Change: Weight gain Skin: Intact NUTRITION RISK CATEGORY: Nutrition Risk Category: Low/Moderate (0-1 factors) Clinical Nutrition Recommendations: Diet: Continue current nutrition plan NUTRITION INTERVENTION/PLAN: Education provided: Patient verbalized understanding Continue current care plan Will follow and adjust nutritional plan as medical condition requires. Please contact for change(s)in patient condition requiring earlier intervention. Cate Ernandez MS, RDN Clinical Nutrition [facility] Available via [place] Text [phone] * Neelima Roth PA-C - 03/04/2024 9:31 AM EDTAssociated Order(s): GASTROENTEROLOGY CONSULT IP CONSULT - Gastroenterology [facility]-[address] [place] [id number] Name: Gavi Sim Location: [facility] 3B-3019/W Date: 03/04/2024 Time: 9:32 AM REQUESTING SERVICE: Medicine REASON FOR CONSULT: Recurrent Nausea/vomiting/diarrhea HPI: Gavi Sim is a 48 year old female with PMHx HLD, Fibromyalgia, ADHD, Anxiety/Depression and others, including tubular adenoma of the colon, recently admitted here in December with similar symptoms, we are consulted today for recurrent nausea vomiting and diarrhea. She has had symptoms going on almost a year now. Previous imaging suggestive of gastritis and colitis and she was planned to have outpatient EGD/colonoscopy which is planned for April. She is prescribed Linzess to take for constipation however she only takes this every few days when she does not have a bowel movement for several days, then has liquid stool. Stool is brown/green liquid. No form. No hard stool. No nocturnal symptoms. Has intermittent nausea/vomiting every few weeks; in between has no nausea. No particular food triggers. Takes daily PPI. GERD is generally well controlled. No dysphagia. No bloody or black stool. Gets intermittent abd discomfort in the epigastrium; feels sensitive. No triggering/relievingfactors. No improvement with BMs. Imaging w/ CT again shows question or colitis. Currently denies n/v. No early satiety. Patient did tolerate her whole breakfast tray today. Statesshe ate the full tray. (Scrambled eggs/potatoes, etc.). As we were leaving her room they were bringing in her lunch tray. Last BM was last evening. Today feels like she has to go again. C diff Neg, GI path pending. Labs including BMP, CMP, LFTs otherwise unremarkable other than a very mild hypokalem ia. Mag is normal. No NSAIDs. No tobacco, ETOH. Colonoscopy 03/02/23 - Impression: - The examined portion of the ileum was normal. - Two 2 to 4 mm polyps in the descending colon, removed with a cold snare. Resected and retrieved. - Diverticulosis in the sigmoid colon. - Internal hemorrhoids. - The examination was otherwise normal on direct and retroflexion views. A. Colon, Descending, polyps x2, polypectomy: Tubular adenoma, with additional hyperplastic polyp. EGD 11/10/16 - Impression: - Normal esophagus. - No esophagitis. - Normal stomach. Biopsied. - Normal examined duodenum. A. Stomach, biopsy: Gastric antral and oxyntic type mucosa with inactive chronic gastritis. Immunostain for H. pylori is negative with adequate control. HISTORY: Past Medical History: Past Medical History: Diagnosis Date Abnormal Papanicolaou smear of vagina and vaginal HPV 09/04/1998 HGSIL Anxiety Depressive disorder, not elsewhere classified Dysthymic disorder Esophageal reflux Fibromyalgia Hyperlipidemia Other vitamin B12 deficiency anemia Vitamin D deficiency Past Surgical History: Past Surgical History: Procedure Laterality Date CARPAL TUNNEL SYN COLONOSCOPY, DIAGNOSTIC (RECTUM) N/A 03/02/2023 diverticulosis/hemorrhoids/biopsies show adenomatous polyps/recall 5 years/COLONOSCOPY FLEXIBLE PROXIMAL DIAGNOSTIC performed by Ata Valero MD at ENDOSCOPY [facility] COLPSCPY CERVIX W/LOOP ELECT 07/05/1999 CRYOCAUTERY OF CERVIX 08/04/2000 CYSTO/URETERO W/LITHOTRIPSY Left 07/19/2021 CYSTOURETHROSCOPY URETEROSCOPY WITH LITHOTRIPSY AND STENT INSERTION performed by Calvin Woods MD at OR [facility] CYSTOSCOPY/DILATE BLADDER DIALATED URETHRA EGD, FLEXIBLE, DIAGNOSTIC N/A 11/10/2016 normal/ESOPHAGOGASTRODUODENOSCOPY (EGD), FLEXIBLE, TRANSORAL, DIAGNOSTIC performed by Eduardo Rees MD at OR [facility] ENLARGEMENT OF BREAST W/O IMPLANT Bilateral 2006 saline behind the muscle REMOVAL OF TONSILS, UNDER AGE 12 1984 AGE NOT SPECIFIED TOOTH ROOT REMOVAL 1998 WISDOM Social History: Social History Tobacco Use Smoking status: Never Smokeless tobacco: Never Tobacco comments: DENIES Vaping Use Vaping status: Never Used Substance Use Topics Alcohol use: No Comment: rare Drug use: No Comment: DENIES Family History: Family History Problem Relation Name Age of Onset Diabetes Mother diet controlled Cancer Father Other (HEART ATTACH) Other Hypertension Other Diabetes Other Other (ADDICTION) Other ALCOHOL Other (Other) Other unaware of any family hx of skin related ca or disease Allergies: Erythromycin ROS: A complete review of systems is as stated above, otherwise, all others negative. PHYSICAL EXAMINATION: Most Recent Vital Signs: BP: 92 mmHg/54 mmHg (03/04/24730) Pulse: 90 (03/04/24730) Resp: 16 (03/04/24745) Temp: 36.72 C (03/04/24730) Temp Summary: Temp Min: 36.5 C (97.7 F) Max: 36.7 C (98.1 F) SpO2: 99 % (03/04/24730) O2 flow rate: Supplemental O2 Delivery: Room Air, None (03/04/24730) Vital Signs Last 24 Hours: Systolic BP: Most Recent Systolic BP Av.3 mmHg Min: 92 mmHg Max: 119 mmHg Temperature: Most Recent Temperature Av.6 C Min: 36.5 C Max: 36.72 C Pulse: Pulse Av.7 Min: 90 Max: 100 Respirations: Resp Av Min: 16 Max: 22 SpO2: SpO2 Av % Min: 98 % Max: 100 % Constitutional: no acute distress HEENT: normal: normocephalic, atraumatic; no masses, tenderness, or adenopathy Eyes: no scleral icterus, redness, or injection Neck: supple, normal range of motion CV: normal rate and rhythm, no murmur, gallops or rub Chest: normal respiratory effort, breath sounds normal Abdomen: normal: soft, bowel sounds normal, no masses, tenderness or appreciable ascites Extremities: no edema Skin: warm and dry, no rashes Neuro: normal mental status exam Psych: normal mood and affect, memory normal LABS: Labs reviewed. Recent Results (from the past 24 hour(s)) CBC Collection Time: 03/04/24 5:24 AM Result Value Ref Range WBC 6.66 4.00 - 10.80 K/uL RBC 3.84 3.85 - 5.15 M/uL HGB 11.8 (L) 12.0 - 15.3 g/dL HCT 35.3 (L) 36.0 - 45.2 % MCV 91.9 81.5 - 97.5 fL MCH 30.7 27.0 - 34.0 pg MCHC 33.4 32.0 - 36.0 g/dL RDW 12.5 11.5 - 15.5 % PLT 306 140 - 400 K/uL MPV 9.1 6.6 - 11.1 fL nRBCs 0 <=0 /100 WBCs DIFFERENTIAL, AUTOMATED Collection Time: 03/04/24 5:24 AM Result Value Ref Range WBC 6.66 4.00 - 10.80 K/uL Neutrophils % 46.8 40.0 - 75.0 % Lymphocytes % 43.1 (H) 18.0 - 42.0 % Monocytes % 7.8 1.0 - 11.0 % Eosinophils % 1.5 0.0 - 6.0 % Basophils % 0.6 0.0 - 2.0 % Immature Granulocytes % 0.2 0.0 - 2.0 % Absolute Neutrophils 3.12 1.80 - 7.70 K/uL Absolute Lymphocytes 2.87 1.00 - 4.80 K/ul Absolute Monocytes 0.52 0.00 - 1.10 K/uL Absolute Eosinophils 0.10 0.00 - 0.70 K/uL Absolute Basophils 0.04 0.00 - 0.20 K/uL Absolute Immature Granulocytes 0.01 0.00 - 0.20 K/uL BASIC METABOLIC PANEL Collection Time: 03/04/24 5:25 AM Result Value Ref Range BUN 3 (L) 6 - 20 mg/dL Creatinine 0.7 0.5 - 1.0 mg/dL Estimated Glomerular Filtration Rate >90 >=60 mL/min Sodium 137 135 - 146 mmol/L Potassium 3.4 (L) 3.5 - 5.1 mmol/L Chloride 111 (H) 98 - 107 mmol/L CO2 18 (L) 22 - 32 mmol/L Anion Gap 8 7 - 15 mmol/L Glucose 94 70 - 120 mg/dL Calcium 8.4 8.4 - 10.2 mg/dL MAGNESIUM Collection Time: 03/04/24 5:25 AM Result Value Ref Range Magnesium 2.1 1.5 - 2.6 mg/dL IMAGING: XR ABDOMEN 1 VIEW Final Result PROCEDURE INFORMATION: Exam: XR Abdomen Exam date and time: 03/03/2024 6:31 PM Age: 48 years old Clinical indication: Nausea; Abdominal pain; Generalized; Additional info: Vomiting, abd pain TECHNIQUE: Imaging protocol: Radiologic exam of the abdomen. Views: Frontal supine view of the abdomen. 1 View. COMPARISON: CT ABD/PELVIS W IV CONTRAST - WO ORAL CONTRAST 03/01/2024 10:01 PM FINDINGS: Gastrointestinal tract: Prominent gas-filled loops of colon with likely intraluminal fluid as better visualized on prior recent CT. Nonobstructive bowel gas pattern. Bones/joints: Unremarkable. IMPRESSION IMPRESSION: Nonobstructive bowel gas pattern. THIS DOCUMENT HAS BEEN ELECTRONICALLY SIGNED BY ALVINO SEYMOUR MD CT ABD/PELVIS W IV CONTRAST - WO ORAL CONTRAST Final Result PROCEDURE INFORMATION: Exam: CT Abdomen And Pelvis With Contrast Exam date and time: 03/01/2024 10:01 PM Age: 48 years old Clinical indication: Abdominal pain; Additional info: Vomiting, diarrhea, ongoing pain. History of colitis per prior CT TECHNIQUE: Imaging protocol: Computed tomography of the abdomen and pelvis with contrast. Radiation optimization: All CT scans at this facility use at least one of these dose optimization techniques: automated exposure control; mA and/or kV adjustment per patient size (includes targeted exams where dose is matched to clinical indication); or iterative reconstruction. Contrast material: ISOVUE 370; Contrast volume: 80 ml; Contrast route: INTRAVENOUS (IV); COMPARISON: CT ABD/PELVIS W IV CONTRAST - WO ORAL CONTRAST 12/28/2023 4:05 PM FINDINGS: Liver: No mass. Gallbladder and biliary ducts: No calcified stones. No gross ductal dilation. Pancreas: No ductal dilation. No mass . Spleen: No splenomegaly or suspicious lesions. Adrenal glands: No suspicious mass. Kidneys and ureters: No renal masses or hydronephrosis bilaterally. Stomach and bowel: Fluid-filled colon and rectum; mild rectal mucosal hyperemia. Rectal hyperemia more pronounced than prior. No significant colonic wall thickening. No focal pathology in the small bowel. Appendix: No evidence of appendicitis. Intraperitoneal space: No free air. No significant fluid collection. Vasculature: No abdominal aortic aneurysm. Lymph nodes: No significantly enlarged lymph nodes. Urinary bladder: No gross wall thickening. Reproductive: Unremarkable as visualized. Bones/joints: No acute fracture or subluxation. Soft tissues: Bilateral breast implants. IMPRESSION IMPRESSION: Mild proctitis worsened since prior. Fluid throughout colon and rectum compatible with a mild colitis. THIS DOCUMENT HAS BEEN ELECTRONICALLY SIGNED BY DINORAH SAMUELS MD XR ABDOMEN 2 VIEWS Final Result PROCEDURE INFORMATION: Exam: XR Abdomen Exam date and time: 03/01/2024 7:46 PM Age: 48 years old Clinical indication: Other: Ruq pain; Additional info: Vomiting, diarrhea, abdominal pain TECHNIQUE: Imaging protocol: Radiologic exam of the abdomen. Views: 2 Views. Upright and supine views. COMPARISON: CT ABD/PELVIS W IV CONTRAST - WO ORAL CONTRAST 12/28/2023 4:05 PM FINDINGS: Gastrointestinal tract: Paucity of gas in small bowel. Gas in colon without pathologic dilation. Scattered colonic air-fluid levels Intraperitoneal space: No free air. Bones/joints: Unremarkable for age. IMPRESSION IMPRESSION: Paucity of gas in small bowel. Gas in colon without pathologic dilation. Colonic air-fluid levels compatible with history of diarrhea. THIS DOCUMENT HAS BEEN ELECTRONICALLY SIGNED BY DINORAH SAMUELS MD XR CHEST 2 VIEWS Final Result PROCEDURE INFORMATION: Exam: XR Chest Exam date and time: 03/01/2024 6:24 PM Age: 48 years old Clinical indication: Pain; Chest pressure; Additional info: Chest pain TECHNIQUE: Imaging protocol: Radiologic exam of the chest. Views: 2 views. COMPARISON: DX XR CHEST 1 VIEW 12/28/2023 2:16 PM FINDINGS: Lungs: No consolidation. Pleural spaces: No pleural effusion. No pneumothorax. Heart/Mediastinum: No cardiomegaly. Bones/joints: No acute fracture. Soft tissues: Bilateral breast implants. IMPRESSION IMPRESSION: No acute cardiopulmonary pathology. THIS DOCUMENT HAS BEEN ELECTRONICALLY SIGNED BY DINORAH SAMUELS MD NM GASTRIC EMPTYING STUDY SOLID (Results Pending) IMPRESSION: Gavi Sim is a(n) 48 year old female with chronic intermittent nausea/vomiting, abdominal pain, diarrhea, alt w/ constipation. CT imaging w/ nonspecific colitis, proctitis, prior imaging also noted gastritis. Nausea/vomiting seems to have improved, she is tolerating all of her food today. Abd soft, nontender. RECOMMENDATIONS/PLAN: - Diff dx discussed; consider w/u for gastroparesis, and would plan to keep appointments for EGD/colonoscopy, patient asking if these can be moved up and I did reach out to our schedulers to see if she could have this moved up. - GES ordered - C diff neg, await stool cx. - Would recommend if her infectious workup is negative, she continue on her Linzess but more regularly to make sure she is not getting overflow diarrhea and this was reviewed with her - Consider daily PPI Please see attending addendum for further discussions/recommendations. I have discussed the case with my attending, Dr Valero. Associated attestation - Ata Valero MD - 03/04/2024 2:18 PM EDT I performed a history and physical examination of the patient, including specifically on physical exam - soft abomen. I have discussed the patient's management with ROLAN Aggarwal.. Please refer to the physician office support assistant's note for the documented findings and plan of care. documented in this encounter Nursing Notes * Magi Gentile RN - 03/06/2024 11:25 AM EDT VIRTUAL RN [facility] [place] [address] Name: Gavi Sim Location: [facility] [id number] Date: 03/06/2024 Time: 11:25 AM I completed the Discharge Navigator. The patient was in the hospital. I was not in a hospital or clinic location. After connecting through [employer], the patient was identified by name and date of and / or wristband checked. Patient (or authorized legal patient portal representative) was then informed that this was a Virtual Nurse visit and was being conducted confidentially over secure lines. My office door was closed. No one else was in the room with me. Patient acknowledged consent and understanding of privacy and security of the Virtual Nurse visit. I presented the opportunity for the patient or authorized legal patient portal representative to ask any questions regarding the visit today. The patient or authorized legal patient portal representative agreed to participate. * Gay Cuevas RN - 03/02/2024 12:06 AM EDT Patient arrived to unit and ambulated from hallway to bedside independently without complications. VSS. Admission assessment and questions completed at this time. Patient oriented to room and call manzanares system. Medicated per MAR. Patient denies further questions, concerns, or needs at this time. Bedin lowest position and call manzanares within reach. * Gay Cuevas RN - 03/02/2024 12:06 AM EDT Dual Licensed Skin Assessment completed by Shruthi Cuevas RN and Shruthi Vance RN. The patient is/has a N/A Skin Breakdown (includes non blanchable erythema): No documented in this encounter ED Notes * Renetta Teixeira MD - 03/01/2024 7:36 PM EDTAssociated Order(s): ECG Interpret HISTORY OF PRESENT ILLNESS Gavi Sim is a 48 year old female who presents to the ED for evaluation of Vomiting, Diarrhea, Headache, and Chest Pain. The patient was seen at 03/01/241918. Starting 2 days ago, the patient has had multiple episodes of vomiting and diarrhea, she feels dizzy and lightheaded, out of breath when she walks, and she has tingling in her fingers and toes. She also feels bloated. She has had multip le similar incidents, a couple of times a week. She was diagnosed with colitis months ago on CT scan. She is not scheduled for colonoscopy until April. No hematemesis or hematochezia. She has vomited 3 times today and had diarrhea 5-6 times today. She also has pain left upper sternal and right anterior lower chest. Review of Systems Constitutional: Negative for fever. HENT: Negative for congestion, ear pain, rhinorrhea and sore throat. Respiratory: Negative for cough and shortness of breath. Cardiovascular: Positive for chest pain. Negative for leg swelling. Gastrointestinal: Positive for abdominal distention, abdominal pain, diarrhea, nausea and vomiting.Negative for blood in stool and constipation. Genitourinary: Negative for dysuria, frequency and hematuria. Musculoskeletal: Negative for back pain and myalgias. Skin: Negative for rash. Neurological: Positive for dizziness, light-headedness, numbness and headaches. Negative for weakness. All other systems reviewed and are negative. The patient's allergies, past history, and medications were reviewed. PHYSICAL EXAM Initial Vitals (see all): BP 122/85 | Pulse 128 | Resp 20 | Temp 96.6 | O2 100 %Weight 57.92 kg | Height 162.6 cm | BMI 21.92kg/m2 Initial Pain Assessment (see all): 6 (severe pain)/10, location: chest tightness ([facility] Adult Scale 0-10) Physical Exam Vitals and nursing note reviewed. Constitutional: General: She is in acute distress (Moderate). Appearance: She is not ill-appearing, toxic-appearing or diaphoretic. HENT: Head: Normocephalic and atraumatic. Comments: Slightly hoarse voice Mouth/Throat: Mouth: Mucous membranes are moist. Cardiovascular: Rate and Rhythm: Regular rhythm. Tachycardia present. Heart sounds: Murmur (Left 2nd intercostal space) heard. Systolic murmur is present with a grade of 2/6. No gallop. Pulmonary: Effort: Pulmonary effort is normal. No respiratory distress. Breath sounds: Normal breath sounds. Abdominal: General: Bowel sounds are normal. There is no distension. Palpations: Abdomen is soft. Tenderness: There is no abdominal tenderness. There is no guarding or rebound. Musculoskeletal: General: No swelling, tenderness or deformity. Normal range of motion. Cervical back: Normal range of motion and neck supple. No muscular tenderness. Right lower leg: No edema. Left lower leg: No edema. Lymphadenopathy: Cervical: No cervical adenopathy. Skin: General: Skin is warm and dry. Coloration: Skin is not cyanotic. Findings: No rash. Nails: There is no clubbing. Neurological: General: No focal deficit present. Mental Status: She is alert and oriented to person, place, and time. GCS: GCS eye subscore is 4. GCS verbal subscore is 5. GCS motor subscore is 6. Psychiatric: Mood and Affect: Mood normal. Speech: Speech normal. Behavior: Behavior normal. Behavior is cooperative. PROCEDURES AND TREATMENTS ED Orders | ED Results ECG Interpret Date/Time: 03/01/2024 9:00 PM Performed by: Renetta Teixeira MD Authorized by: Renetta Teixeira MD Previous ECG: Previous ECG: Compared to current Comments: Done at 18:06 shows sinus tachycardia, rate 113. Compared to prior EKG of 01/26/2024 done at 18:46,ST depressions are no longer present in the lateral precordial leads MEDICAL DECISION MAKING Nursing notes and vital signs were reviewed. ED Course as of 03/01/24 2341 MonMar 01, [id number] Pulse: 108 [DH] 1999 BP: 117/78 [DH] 2147 Unremarkable urine [DH] 2152 Reassessment: The patient says she feels "sick. " although her vital signs are improved. She feels nauseated, shaky, has abdominal pain, headache. She advises that she does feel she needs to be in the hospital. CT ordered to check for other process in abdomen, additional medications given [] 2224 Tox screen was done after patient was given morphine here earlier [] 2259 Reassessment: Patient was not feeling any better. She did try to eat and drink something here but then she had vomiting and diarrhea. She has some slight tenderness with guarding periumbilical region. Will discuss with hospitalist [] ED Course User Index [] Renetta Teixeira MD Differential Diagnoses Based on my history, physical exam, and evaluation, the differential includes, but is not limited, to the following diagnoses: Inflammatory bowel disease, cyclic vomiting syndrome, other gastroenteritis, electrolyte imbalance, dehydration. 01/27/2024 stool studies C diff negative Gastrointestinal pathogen panel negative 12/28/2023 CT abdomen and pelvis: IMPRESSION: Mild gastritis and colitis which are favored infectious or inflammatory in etiology. Amount and/or Complexity of Data Reviewed Labs: ordered. Radiology: ordered. ECG/medicine tests: independent interpretation performed. Risk Prescription drug management. Decision regarding hospitalization. Clinical Impressions Acute colitis Disposition Admitted. I discussed the management of this patient with the admitting provider and I made a decision to admit the patient. Admission Order Ordered Status . 03/01/24 2333 Assign to Observation ONCE Ordered Renetta Teixeira This chart was completed in part utilizing [employer] Speech Voice Recognition Software. Grammatical errors, random word insertions, prounoun errors, and incomplete sentences are an occasional consequence of this system due to software limitations, ambient noise, and hardware issues. Any formal questions or concerns about the content, text, or information contained within the body of this dictation should be directly addressed to the provider for clarification. Renetta Teixeira MD 03/01/2024 11:41 PM * Andrew Webb RN - 03/01/2024 6:09 PM EDT Nausea, vomiting, diarrhea, chest pain, SOB. Pt states that she thinks that her potassium is low and that is what is causing present symptoms. Pt reports a hx of same. Does take PO K+, and has not missed any doses recently. documented in this encounter Miscellaneous Notes * Care Plan - Arleth Cole RN - 03/06/2024 5:54 AM EDT Clinical Goal(s): Pt will deny n/v/d this shift (03/05/241924) Possible barriers to meeting goal(s)/advancing plan of care: acuity of illness Stability of the patient: Moderately stable - low risk of patient condition declining or worsening Summary regarding today's goal(s): Met: Pt denied n/v/d this shift Recommendations: continue plan of care * Pt Handout (on AVS) - Virginia Jackson RN - 03/05/2024 7:50 AM EDT Images from the original note were not included. 27585-07 Rifaximin Oral Tablet Brands: XIFAXAN Uses This medicine is used for the following purposes: abnormal brain function irritable bowel syndrome traveler's diarrhea infections caused by bacteria Instructions This medicine may be taken with or without food. This medicine will work best if you take it at about the same time every day. Store at room temperature away from heat, light, and moisture. Do not keep in the bathroom. If you forget to take a dose on time, take it as soon as you remember. If it is almost time for thenext dose, do not take the missed dose. Return to your normal schedule. Do not take 2 doses at one time. Drug interactions can change how medicines work or increase risk for side effects. Tell your healthcare providers about all medicines taken. Include prescription and ukrc-idp-nfkhbbn medicines, vitamins, and herbal medicines. Speak with your doctor or pharmacist before starting or stopping any medicine. Tell your doctor if symptoms do not get better or if they get worse. Keep using this medicine for the full number of days that it is prescribed. Do not stop the medicine even if you start to feel better. Keep all appointments for medical exams and tests while on this medicine. Do not take the medicine more than three times during 24 hours. Cautions Tell your doctor and pharmacist if you ever had an allergic reaction to a medicine. Some patients taking this medicine have experienced serious side effects. Please speak with your doctor to understand the risks and benefits associated with this medicine. Do not use the medication any more than instructed. Please check with your doctor before drinking alcohol while on this medicine. Speak with your health care provider before receiving any vaccinations. Please tell your doctor if you have moderate to severe diarrhea while on this medicine. Do not treat the diarrhea with fgwj-mxz-embrhnm diarrhea medicine. Tell the doctor or pharmacist if you are , planning to be , or . Do not share this medicine with anyone who has not been prescribed this medicine. Side Effects Call your doctor or get medical help right away if you notice any of these more serious side effects: severe, watery or bloody diarrhea severe stomach or bowel pain A few people may have an allergic reaction to this medicine. Symptoms can include difficulty breathing, skin rash, itching, swelling, or severe dizziness. If you notice any of these symptoms, seek medical help quickly. Extra Please speak with your doctor, nurse, or pharmacist if you have any questions about this medicine. [email or web address] IMPORTANT NOTE: This document tells you briefly how to take your medicine, but it does not tell youall there is to know about it. Your doctor or pharmacist may give you other documents about your medicine. Please talk to them if you have any questions. Always follow their advice. There is a more complete description of this medicine available in [place]. Scan this code on your smartphone or tablet or use the web address below. You can also ask your pharmacist for a printout. If you have any questions, please ask your pharmacist. The display and use of this drug information is subject to Terms of Use. Copyright(c) 2023 [employer]. 2506-3970 [employer] All rights reserved. This information is not intended as a substitute for professional medical care. Always follow your healthcare professional's instructions. * Pt Handout (on AVS) - Virginia Jackson RN - 03/05/2024 7:50 AM EDT Images from the original note were not included. [id number] Simethicone Chewable Tablet Brands: Bicarsim, Gas-X, Mi-Acid Gas Relief, Mytab Gas Uses This medicine is used for the following purposes: diagnostic imaging reduce gas Instructions Chew the pill and swallow. Take the medicine with a meal and some liquid. Keep the medicine at room temperature. Avoid heat and direct light. Tell your doctor and pharmacist about all your medicines. Include prescription and egqr-yfl-aitttrzjqppfxtgj, vitamins, and herbal medicines. Tell your doctor if symptoms do not get better or if they get worse. Cautions Tell your doctor and pharmacist if you ever had an allergic reaction to a medicine. Do not use the medication any more than instructed. Do not start or stop any other medicines without first speaking to your doctor or pharmacist. Side Effects This medicine usually has no side effects. A few people may have an allergic reaction to this medicine. Symptoms can include difficulty breathing, skin rash, itching, swelling, or severe dizziness. If you notice any of these symptoms, seek medical help quickly. Extra Please speak with your doctor, nurse, or pharmacist if you have any questions about this medicine. [email or web address] IMPORTANT NOTE: This document tells you briefly how to take your medicine, but it does not tell youall there is to know about it. Your doctor or pharmacist may give you other documents about your medicine. Please talk to them if you have any questions. Always follow their advice. There is a more complete description of this medicine available in [place]. Scan this code on your smartphone or tablet or use the web address below. You can also ask your pharmacist for a printout. If you have any questions, please ask your pharmacist. The display and use of this drug information is subject to Terms of Use. Copyright(c) 2023 [employer]. 7421-3663 [employer] All rights reserved. This information is not intended as a substitute for professional medical care. Always follow your healthcare professional's instructions. * Pt Handout (on AVS) - Virginia Jackson RN - 03/05/2024 7:49 AM EDT Images from the original note were not included. [id number] Famotidine Oral Tablet Brands: Pepcid Uses This medicine is used for the following purposes: heartburn inflammation of stomach prevent heartburn prevent indigestion stomach acid stomach acid reflux ulcers in stomach or intestines ulcers in stomach or intestines Instructions This medicine may be taken with or without food. Swallow with a full glass (8 oz) of water unless your doctor gives you different instructions. Keep the medicine at room temperature. Avoid heat and direct light. Keep the medicine away from heat and light. This medicine can reduce the absorption of other medicines. Talk to your doctor or pharmacist aboutthe best times to use this product. It is important that you keep taking each dose of this medicine on time even if you are feeling well. If you forget to take a dose on time, take it as soon as you remember. If it is almost time for thenext dose, do not take the missed dose. Return to your normal schedule. Do not take 2 doses at one time. Drug interactions can change how medicines work or increase risk for side effects. Tell your healthcare providers about all medicines taken. Include prescription and crgt-bib-bbtgyjv medicines, vitamins, and herbal medicines. Speak with your doctor or pharmacist before starting or stopping any medicine. Tell your doctor if symptoms do not get better or if they get worse. Cautions Tell your doctor and pharmacist if you ever had an allergic reaction to a medicine. Do not use the medication any more than instructed. Tell the doctor or pharmacist if you are , planning to be , or . Do not share this medicine with anyone who has not been prescribed this medicine. Side Effects The following is a list of some common side effects from this medicine. Please speak with your doctor about what you should do if you experience these or other side effects. constipation or diarrhea headaches Call your doctor or get medical help right away if you notice any of these more serious side effects: bleeding or bruising chest pain confusion dizziness fainting fast or irregular heart beats seizures shortness of breath A few people may have an allergic reaction to this medicine. Symptoms can include difficulty breathing, skin rash, itching, swelling, or severe dizziness. If you notice any of these symptoms, seek medical help quickly. Extra Please speak with your doctor, nurse, or pharmacist if you have any questions about this medicine. [email or web address] IMPORTANT NOTE: This document tells you briefly how to take your medicine, but it does not tell youall there is to know about it. Your doctor or pharmacist may give you other documents about your medicine. Please talk to them if you have any questions. Always follow their advice. There is a more complete description of this medicine available in Ukrainian. Scan this code on your smartphone or tablet or use the web address below. You can also ask your pharmacist for a printout. If you have any questions, please ask your pharmacist. The display and use of this drug information is subject to Terms of Use. Copyright(c) 2023 [employer]. All rights reserved. This information is not intended as a substitute for professional medical care. Always follow your healthcare professional's instructions. * Pt Handout (on AVS) - Virginia Jackson RN - 03/05/2024 7:49 AM EDT Images from the original note were not included. [id number] Dicyclomine Oral Tablet Brands: Bentyl Uses For irritable bowel syndrome. Instructions This medicine may be taken with or without food. To relieve dry mouth, chew gum, suck on hard candy/ice chips, drink extra water, or use a saliva substitute. This medicine will work best if you take it at about the same time every day. Store at room temperature away from heat, light, and moisture. Do not keep in the bathroom. To reduce constipation, eat high fiber foods, drink plenty of water and exercise. Do not take this medicine with milk or milk products (such as yogurt). Do not take antacids 2 hours before or 2 hours after taking this medicine. It is important that you keep taking each dose of this medicine on time even if you are feeling well. If you forget to take a dose on time, take it as soon as you remember. If it is almost time for thenext dose, do not take the missed dose. Return to your normal schedule. Do not take 2 doses at one time. Drug interactions can change how medicines work or increase risk for side effects. Tell your healthcare providers about all medicines taken. Include prescription and [id number] medicines, vitamins, and herbal medicines. Speak with your doctor or pharmacist before starting or stopping any medicine. Tell your doctor if symptoms do not get better or if they get worse. Keep all appointments for medical exams and tests while on this medicine. Cautions Tell your doctor and pharmacist if you ever had an allergic reaction to a medicine. Some patients taking this medicine have experienced serious side effects. Please speak with your doctor to understand the risks and benefits associated with this medicine. Do not use the medication any more than instructed. This medicine may cause dizziness or fainting. Do not stand or sit up quickly. Your ability to stay alert or to react quickly may be impaired by this medicine. Do not drive or operate machinery until you know how this medicine will affect you. If you drink alcohol regularly, please speak with your doctor. Avoid becoming overheated during exercise or other activities. Try to stay cool in hot weather. Call the doctor if there are any signs of confusion or unusual changes in behavior. Do not breastfeed while on this medicine. This medicine can pass through breast milk to the baby. During , this medicine should be used only when clearly needed. Talk to your doctor about the risks and benefits. Do not share this medicine with anyone who has not been prescribed this medicine. Side Effects The following is a list of some common side effects from this medicine. Please speak with your doctor about what you should do if you experience these or other side effects. bloating constipation dizziness or drowsiness dry eyes muscle weakness nausea nervousness blurring or changes of vision Call your doctor or get medical help right away if you notice any of these more serious side effects: loss of balance changes in memory, mood, or thinking difficulty concentrating fainting fast or irregular heart beats slurred speech urinating less often difficulty or discomfort urinating A few people may have an allergic reaction to this medicine. Symptoms can include difficulty breathing, skin rash, itching, swelling, or severe dizziness. If you notice any of these symptoms, seek medical help quickly. Extra Please speak with your doctor, nurse, or pharmacist if you have any questions about this medicine. [email or web address] IMPORTANT NOTE: This document tells you briefly how to take your medicine, but it does not tell youall there is to know about it. Your doctor or pharmacist may give you other documents about your medicine. Please talk to them if you have any questions. Always follow their advice. There is a more complete description of this medicine available in Ukrainian. Scan this code on your smartphone or tablet or use the web address below. You can also ask your pharmacist for a printout. If you have any questions, please ask your pharmacist. The display and use of this drug information is subject to Terms of Use. Copyright(c) 2023 [employer]. [employer] All rights reserved. This information is not intended as a substitute for professional medical care. Always follow your healthcare professional's instructions. * Care Plan - Lula Garnica RN - 03/04/2024 6:55 PM EDT Clinical Goal(s): pt will have no episodes of vomiting this shift (03/04/24 0746) Possible barriers to meeting goal(s)/advancing plan of care: acuity of illness Stability of the patient: Moderately stable - low risk of patient condition declining or worsening Summary regarding today's goal(s): Met: no vomiting this shift Recommendations: medicate for nausea/vomiting as needed * Care Plan - Bladimir Vance RN - 03/04/2024 5:06 AM EDT Clinical Goal(s): Pt will have no more than 4/10 pain this shift. (03/03/241952) Possible barriers to meeting goal(s)/advancing plan of care: Pt. Disease process Stability of the patient: Moderately stable - low risk of patient condition declining or worsening Summary regarding today's goal(s): Not Met: Pt. Rated pain as 6/10 this shift Recommendations: Keep monitoring pt. Pain and give medication based off mar and pain scale * Care Plan - Lula Garnica RN - 03/03/2024 6:20 PM EDT Clinical Goal(s): pt's pain will remain <5/10 this shift (03/03/24 0724) Possible barriers to meeting goal(s)/advancing plan of care: acuity of illness Stability of the patient: Moderately stable - low risk of patient condition declining or worsening Summary regarding today's goal(s): Not Met: pt reported pain >5/10 this shift Recommendations: Adelaide Keith aware that pt is experiencing nausea and zofran unrelieved w/ zofran and IM tigan. Pt also experiencing 6/10 upper abdominal pain. Reports an increase in belching. Pt has also had multiple BM's this shift. Adelaide Keith made aware. Prn morphine given. KUB ordered per Dr. Bryson, dinner tray held * Pt Handout (on AVS) - Slick Bryson MD - 03/03/2024 4:50 PM EDT Images from the original note were not included. Living With Irritable Bowel Syndrome (IBS) - Video If you have IBS, you know how frustrating it can be. It's uncomfortable and inconvenient, and it can be embarrassing. The good news is you can take steps to manage your symptoms. These tips will help. To view the video go to this web address: [email or web address] Or, scan this QR code with your smart phone [employer]. * Pt Handout (on AVS) - Slick Bryson MD - 03/03/2024 4:49 PM EDT Images from the original note were not included. [id number] Diet and Lifestyle Tips for Irritable Bowel Syndrome (IBS) Your healthcare provider may suggest some lifestyle changes to help control your IBS. Changing yourdiet and managing stress are 2 of the most important changes. Follow your healthcare provider?s instructions. Try some of the advice below. Change your diet Your diet may be an important cause of IBS symptoms. You may want to try the following: Pay attention to what foods bother you, and stay away from them. For example, dairy products arehard for some people to digest. Lactose-free dairy products may be better for your symptoms. Don't eat high FODMAP foods. Common foods that can cause symptoms have carbohydrates called FODMAPs. Your body can't digest these well. High FODMAP foods include some fruits, such as apples, vegetables, such as cabbage, and some dairy. They also include certain sweeteners, such as high-fructose corn syrup, sorbitol, and xylitol. Many people find that eating a diet low in FODMAPs can ease symptoms. Talk with your healthcare provider about a low FODMAP diet. Drink 6 to 8 glasses of water a day. Don't have caffeine or tobacco. These can affect how your digestive tract works. Don't drink alcohol. It can irritate your digestive tract. It can make your symptoms worse. Eat more fiber if constipation is a problem. Fiber makes the stool softer. That makes it easier to pass through the colon. Eat more fiber if diarrhea is a problem. Fiber also helps to bind water. This can help to firm up loose stool. Reduce stress Learn how to manage stress if stress or anxiety makes your IBS symptoms worse. Managing stress may help you feel better. Try these tips: Find out what causes stress in your life. Learn new ways to cope with them. Mindfulness, meditation, and yoga may help. Regular exercise is a great way to ease stress. It can also help ease constipation. For adults, the CDC recommends 150 minutes of moderate activity each week. Or you can get 75 minutes of vigorousactivity each week. It also advises muscle-strengthening activities 2 days a week. If this sounds like a lot of time, the CDC suggests breaking physical activity into 10-minute blocks. You can spreadthose out over a week. Developing a schedule that works for you is the anderson to a successful exerciseprogram. Last Reviewed Date: 12/04/202319991360-9450 [employer] All rights reserved. This information is not intended as a substitute for professional medical care. Always follow your healthcare professional's instructions. * Care Plan - Arleth Zhu RN - 03/03/2024 5:40 AM EDT Clinical Goal(s): Pt will have no more than 4/10 pain this shift. (03/02/241950) Possible barriers to meeting goal(s)/advancing plan of care: Acuity of illness Stability of the patient: Moderately stable - low risk of patient condition declining or worsening Summary regarding today's goal(s): Not Met: Pt had 7/10 pain this shift. Recommendations: Continue with plan of care, administer pain medications as needed. * Pt Handout (on AVS) - Zeina Infante RN - 03/02/2024 12:18 AM EDT Images from the original note were not included. [id number] Understanding Colitis Colitis is when a part of your colon becomes inflamed or swollen. The colon is also called the large intestine. It helps with digestion and waste removal. What causes colitis? Colitis can be caused by many things. The most common causes are: Viral or bacterial infections Inflammatory bowel disease (ulcerative colitis or Crohn?s disease) Certain medicines, such as antibiotics Radiation therapy to the colon Symptoms of colitis The symptoms of colitis may last a short time. Or they can be chronic. The most common symptoms are: Diarrhea, sometimes bloody Stomach pain or cramping Fever Weight loss in severe cases Diagnosing colitis Your healthcare provider will take a full health history and family history. They will also give you a physical exam. Depending on the results of your history and physical exam, your provider may also order certain tests to help find out the cause of your colitis. These may include: Lab tests. Your blood and stool will be checked. Endoscopy and biopsy. Endoscopy is a procedure that uses a long, flexible tube with a tiny lightand camera on one end to check the inside of your large intestine. Two types of endoscopy are sigmoidoscopy (view lower colon) or colonoscopy (view entire colon). During an endoscopy, your provider may take a small sample of your tissue to look at under a microscope. This is called a biopsy. Imaging tests. These include X-ray, CT scan, MRI, and capsule endoscopy. Treatment for colitis Treatment for colitis depends on what is causing it and how serious your symptoms are. In some cases, you may not need treatment. For example, colitis from an infection may go away without care. Treatment may include: Medicines. You may take these by mouth (oral) or as a rectal suppository or enema. Some medicines are given by injection. They can lessen swelling and ease symptoms. Changes in your diet. Some foods can make symptoms worse. Common triggers are milk, coffee, alcohol, and fried foods. Talk with your healthcare provider to develop a healthy diet plan. Surgery. In some cases, you may need surgery to remove a damaged part of the colon. Call 911 Call 911 if any of the following occur: Trouble breathing Confusion Very drowsy or trouble awakening Fainting or loss of consciousness Rapid heart rate Chest pain When to call your healthcare provider Call your healthcare provider right away if any of the following occur: Symptoms that don?t get better, or get worse Fever of 100.4F (38C) or higher, or as directed by your healthcare provider Pain that gets worse Bloody diarrhea Bleeding from your rectum New symptoms Last Reviewed Date: 08/04/202219990950-1486 [employer] All rights reserved. This information is not intended as a substitute for professional medical care. Always follow your healthcare professional's instructions. * Medical Necessity - Nolvia Wheeler RN - 03/02/2024 12:15 AM EDT AdmissionCare Guideline: Abdominal Pain, Undiagnosed, Observation Based on the indications selected for the patient, the bed status of Observation was determined to be MET The following indications were selected as present at the time of evaluation of the patient: - Observation Care Admission Criteria - Observation care is indicated for 1 or more of the following: - Finding on examination (eg, increasing tenderness, focal abdominal finding) or diagnostic testing(eg, air fluid level on x-ray) warranting continued evaluation Additional Information: suspect patient has irritable bowel syndrome from her description of constipation mixed with diarrhea. Proctitis should be further investigated and will consult gi AdmissionCare documentation entered by: Nolvia Wheeler [facility] [employer], 28th edition, Copyright 2023 [employer] All Rights Reserved. [id number]:00 Solely for purpose of utilization review and payment; not a diagnostic tool * ED Cigarette Maker Note - Dafne Bridges RN - 03/01/2024 10:29 PM EDT 2228: PO trial: Pt given sandwich and apple juice per request. 2255: Ambulated to bathroom with steady gait. States she did have a loose BM and episode of emesis.Provider at bedside and aware. 2355: Report given to receiving RN on 3B documented in this encounter Plan of Treatment Upcoming Encounters Date Type Department Care Team (Latest Contact Info) Description 03/13/2024 2:00 PM EDT Hospital Encounter Radiology, [address] [address] 04/30/2024 9:27 AM EDT Hospital Encounter OR [facility], Operating Room, [facility] [address] [place] [address] Bryce Reece, DO [address] [place] [address] 04/30/2024 9:27 AM EDT - 04/30/2024 10:14 AM EDT Surgery OR [facility], Operating Room, [address] [place] [address] Bryce Reece, DO [address] [place] [address] COLONOSCOPY FLEXIBLE PROXIMAL DIAGNOSTIC Scheduled Orders Name Type Priority Associated Diagnoses Orde r Schedule BASIC METABOLIC PANEL Lab Routine Hypokalemia Hypocalcemia Expected: 03/13/2024, Expires: 03/06/2025 Scheduled Procedures Name Priority Associated Diagnoses Date/Ti [...] Not on filedocumented as of this encounter Procedures Procedure Name Priority Date/Time Associated Diagnosis Comments BASIC METABOLIC PANEL Routine 03/06/2024 6:50 AM EDT PHOSPHORUS Routine 03/06/2024 6:50 AM EDT MAGNESIUM Routine 03/06/2024 6:50 AM EDT EXTRA LAVENDER TOP Routine 03/06/2024 6: 47 AM EDT EXTRA TUBES Routine 03/06/2024 6:47 AM EDT NM GASTRIC EMPTYING STUDY SOLID Routine 03/05/2024 1:16 PM EDT DIFFERENTIAL, AUTOMATED Routine 03/05/20 5:44 AM EDT BASIC METABOLIC PANEL Routine 03/05/2024 5:44 AM EDT CBC Routine 03/05/2024 5:44 AM EDT PHOSPHORUS Routine 03/05/2024 5:44 AM EDT CBC Routine 03/05/2024 5:44 AM EDT MAGNESIUM Routine 03/05/2024 5:44 AM EDT BASIC METABOLIC PANEL Routine 03/04/2024 5:25 AM EDT MAGNESIUM Routine 03/04/2024 5:25 AM EDT DIFFERENTIAL, AUTOMATED Routine 03/04/20 5:24 AM EDT CBC Routine 03/04/2024 5:24 AM EDT CBC Routine 03/04/2024 5:24 AM EDT XR ABDOMEN 1 VIEW STAT 03/03/2024 6:4 2 PM EDT Nausea with vomiting, unspecified Unspecified abdominal pain GASTROINTESTINAL PATHOGEN PANEL, STOOL Routine 03/03/2024 10:21 AM EDT GASTROINTESTINAL PATHOGEN PANEL CULTURE Routine 03/03/2024 10:21 AM EDT GASTROINTESTINAL PATHOGEN PANEL PCR Routine 03/03/2024 10:21 AM EDT DIFFERENTIAL, AUTOMATED Routine 03/03/20 7:55 AM EDT COMPREHENSIVE METABOLIC PANEL Routine 03/03/2024 7:55 AM EDT CBC Routine 03/03/2024 7:55 AM EDT PHOSPHORUS Routine 03/03/2024 7:55 AM EDT CBC Routine 03/03/2024 7:55 AM EDT MAGNESIUM Routine 03/03/2024 7:55 AM EDT CLOSTRIDIUM DIFFICILE, PCR Routine 03/02/2024 8:50 AM EDT BASIC METABOLIC PANEL Routine 03/02/2024 8:32 AM EDT CBC Routine 03/02/2024 8:[address] ABD/PELVIS W IV CONTRAST - WO ORAL CONTRAST STAT 03/01/2024 10:11 PM EDT Ulcerative (chronic) proctitis without complications (HCC) Other specified symptoms and signs involving the digestive system and abdomen Unspecified abdominal pain Vomiting, unspecified Diarrhea, unspecified TOXICOLOGY, URINESCREEN W/O CONFIRMATION Add-on 03/01/2024 9:20 PM EDT URINALYSIS, REFLEX TO MICROSCOPIC Routine 03/01/2024 9:20 PM EDT TROPONIN T, HIGH SENSITIVITY STAT 03/01/2024 9:09 PM EDT ECG INTERPRET Routine 03/01/2024 9:00 PM EDT XR ABDOMEN 2 VIEWS STAT 03/01/2024 7: 51 PM EDT Other specified symptoms and signs involving the digestive system and abdomen Right upper quadrant pain Vomiting, unspecified Diarrhea, unspecified EXTRA LIGHT BLUE TOP STAT 03/01/2024 6:58 PM EDT DIFFERENTIAL, AUTOMATED STAT 03/01/20 6:58 PM EDT TROPONIN T, HIGH SENSITIVITY STAT 03/01/2024 6:58 PM EDT BETA-HCG, QUANTITATIVE STAT 6:58 PM EDT COMPREHENSIVE METABOLIC PANEL STAT 03/01/2024 6:58 PM EDT CBC STAT 03/01/2024 6:58 PM EDT CBC STAT 03/01/2024 6:58 PM EDT MAGNESIUM Add-on 03/01/2024 6:58 PM EDT XR CHEST 2 VIEWS STAT 03/01/2024 6:22 PM EDT Other chest pain RESPIRATORY PATHOGEN PANEL, PCR STAT 03/01/2024 6:09 PM EDT HC ECG TRACING ONLY STAT 03/01/2024 6 :06 PM EDT documented in this encounter Results * PHOSPHORUS (03/06/2024 6:50 AM EDT) Phosphorus 2.7 2.5 - 4.8 mg/dL 03/06/2024 7:19 AM EDT LABORATORY [facility] Blood Venous blood specimen / Unknown Venipuncture / Unknown 03/06/2024 6:50 AM EDT 03/06/2024 6:56 AM EDT Min Min Adelaide TONY LAB BLOOD ORDERABLES LABORATORY [address] [address] * MAGNESIUM (03/06/2024 6:50 AM EDT) Pathologist [facility] Magnesium 1.9 1.5 - 2.6 mg/dL 03/06/2024 7:19 AM EDT LABORATORY [facility] Blood Venous blood specimen / Unknown Venipuncture / Unknown 03/06/2024 6:50 AM EDT 03/06/2024 6:56 AM EDT Min Min Adelaide TONY LAB BLOOD ORDERABLES Performing Organization Address City/[facility]/ZIP Co de Phone Number LABORATORY [address] [address] * (ABNORMAL) BASIC METABOLIC PANEL (03/06/2024 6:50 AM EDT) BUN 6 6 - 20 mg/dL 03/06/2024 7:19 AM EDT LABORATORY [facility] Creatinine 0.8 0.5 - 1.0 mg/dL 03/06/2024 7:19 AM EDT LABORATORY [facility] Estimated Glomerular Filtration Rate >90 >=60 mL/min 03/06/2024 7:19 AM EDT LABORATORY [facility] Comment:eGFR is calculated b ased on the CKD-EPI 2020 equation Sodium 139 135 - 146 mmol/L 03/06/2024 7:19 AM EDT LABORATORY [facility] Potassium 3.5 3.5 - 5.1 mmol/L 03/06/2024 7:19 AM EDT LABORATORY [facility] Chloride 110(H) 98 - 107 mmol/L 03/06/2024 7:19 AM EDT LAB[facility]ATORY [facility] CO2 20(L) 22 - 32 mmol/L 03/06/2024 7:19 AM EDT LABORATORY [facility] Anion Gap 9 7 - 15 mmol/L 03/06/2024 7:19 AM EDT LAB[facility]ATORY [facility] Glucose 105 70 - 120 mg/dL 03/06/2024 7:19 AM EDT LAB[facility]ATORY [facility] Calcium 8.4 8.4 - 10.2 mg/dL 03/06/2024 7:19 AM EDT LABORATORY [facility] Blood Venous blood specimen / Unknown Venipuncture / Unknown 03/06/2024 6:50 AM EDT 03/06/2024 6:56 AM EDT Min Min Adelaide TONY LAB BLOOD ORDERABLES Performing Organization Address City/[facility]/ZIP Co de Phone Number LABORATORY [facility] [address] [place] [address] * EXTRA LAVENDER TOP (03/06/2024 6:47 AM EDT) Blood Venous blood specimen / Unknown Venipuncture / Unknown 03/06/2024 6:47 AM EDT 03/06/2024 6:56 AM EDT Min Min Adelaide TONY LAB BLOOD ORDERABLES LABORATORY [facility] [address] [place] [address] * NM GASTRIC EMPTYING STUDY SOLID (03/05/2024 1:16 PM EDT) Anatomical Region Laterality Modality GI, Abdomen Nuclear Medicine 03/05/2024 1:28 PM EDT Impressions 03/05/2024 1:26 PM EDT IMPRESSION Abnormal delayed emptying on solid gastric emptying study. Narrative 03/05/2024 1:26 PM EDT EXAM NM GASTRIC EMPTYING STUDY SOLID-03/05/2024 1:16 pm HISTORY nausea, vomiting DATE OF DICTATION:03/05/2024 COMPARISON None abdomen two views dated 03/03/2024, CT abdomen pelvis dated 03/01/2024 and prior studies TECHNIQUE The patient ate a standardized meal of 4 oz scrambled eggs with 1 slice toast and jam which contained 0.5 microcuries of technetium 99m labeled sulfur colloid. Patient ate medial in approximate 10 minute timeframe. This was followed by immediate planar imaging at 0, 60, 120 and 240 minutes after completion of the meal. FINDINGS Visually, there is delayed passage of the radiotracer from the stomach into the small bowel. Retained gastric activity is as follows: 61 minutes: 97% (Reference range 30-90%) 124 minutes: 97% (Reference range less than 60%) 268 minutes: 59% (Reference range less than 10%) Procedure Note Moe Trevino MD - 03/05/2024 EXAM NM GASTRIC EMPTYING STUDY SOLID-03/05/2024 1:16 pm HISTORY nausea, vomiting DATE OF DICTATION:03/05/2024 COMPARISON None abdomen two views dated 03/03/2024, CT abdomen pelvis dated03/01/2024 and prior studies TECHNIQUE The patient ate a standardized meal of 4 oz scrambled eggs with 1 slicetoast and jam which contained 0.5 microcuries of technetium 99m labeledsulfur colloid. Patient ate medial in approximate 10 minute timeframe.This was followed by immediate planar imaging at 0, 60, 120 and 240minutes after completion of the meal. FINDINGS Visually, there is delayed passage of the radiotracer from the stomachinto the small bowel. Retained gastric activity is as follows: 61 minutes: 97% (Reference range 30-90%) 124 minutes: 97% (Reference range less than 60%) 268 minutes: 59% (Reference range less than 10%) IMPRESSION IMPRESSION Abnormal delayed emptying on solid gastric emptying study. Neelima Roth PA-C RAD NUCLEAR MED * (ABNORMAL) DIFFERENTIAL, AUTOMATED (03/05/2024 5:44 AM EDT) WBC 6.04 4.00 - 10.80 K/uL 03/05/2024 6:14 AM EDT LABORATORY [facility] Neutrophils % 40.9 40.0 - 75.0 % 03/05/2024 6:14 AM EDT LABORATORY [facility] Lymphocytes % 47.8(H) 18.0 - 42.0 % 03/05/2024 6:14 AM EDT LABORATORY [facility] Monocytes % 8.1 1.0 - 11.0 % 03/05/2024 6:14 AM EDT LABORATORY [facility] Eosinophils % 2.2 0.0 - 6.0 % 03/05/2024 6:14 AM EDT LABORATORY [facility] Basophils % 0.7 0.0 - 2.0 % 03/05/2024 6:14 AM EDT LABORATORY [facility] Immature Granulocytes % 0.3 0.0 - 2.0 % 03/05/2024 6:14 AM EDT LABORATORY [facility] Absolute Neutrophils 2.47 1.80 - 7.70 K/uL 03/05/2024 6:14 AM EDT LABORATORY [facility] Absolute Lymphocytes 2.89 1.00 - 4.80 K/ul 03/05/2024 6:14 AM EDT LABORATORY [facility] Absolute Monocytes 0.49 0.00 - 1.10 K/uL 03/05/2024 6:14 AM EDT LABORATORY [facility] Absolute Eosinophils 0.13 0.00 - 0.70 K/uL 03/05/2024 6:14 AM EDT LABORATORY [facility] Absolute Basophils 0.04 0.00 - 0.20 K/uL 03/05/2024 6:14 AM EDT LABORATORY [facility] Absolute Immature Granulocytes 0.02 0.00 - 0.20 K/uL 03/05/2024 6:14 AM EDT LABORATORY [facility] Blood Venous blood specimen / Unknown Venipuncture / Unknown 03/05/2024 5:44 AM EDT 03/05/2024 6:03 AM EDT Min Min Adelaide TONY LAB BLOOD ORDERABLES LABORATORY [address] [address] * CBC (03/05/2024 5:44 AM EDT) WBC 6.04 4.00 - 10.80 K/uL 03/05/2024 6:14 AM EDT LABORATORY [facility] RBC 4.07 3.85 - 5.15 M/uL 03/05/2024 6:14 AM EDT LABORATORY [facility] HGB 12.3 12.0 - 15.3 g/dL 03/05/2024 6:14 AM EDT LABORATORY [facility] HCT 36.8 36.0 - 45.2 % 03/05/2024 6:14 AM EDT LABORATORY [facility] MCV 90.4 81.5 - 97.5 fL 03/05/2024 6:14 AM EDT LABORATORY [facility] MCH 30.2 27.0 - 34.0 pg 03/05/2024 6:14 AM EDT LABORATORY [facility] MCHC 33.4 32.0 - 36.0 g/dL 03/05/2024 6:14 AM EDT LABORATORY [facility] RDW 12.5 11.5 - 15.5 % 03/05/2024 6:14 AM EDT LABORATORY [facility] PLT 319 140 - 400 K/uL 03/05/2024 6:14 AM EDT LABORATORY [facility] MPV 9.0 6.6 - 11.1 fL 03/05/2024 6:14 AM EDT LABORATORY [facility] nRBCs 0 <=0 /100 WBCs 03/05/2024 6:14 AM EDT LABORATORY [facility] Blood Venous blood specimen / Unknown Venipuncture / Unknown 03/05/2024 5:44 AM EDT 03/05/2024 6:03 AM EDT Min Min Adelaide TONY LAB BLOOD ORDERABLES Performing Organization Address City/[facility] Co de Phone Number LABORATORY [address] [address] * PHOSPHORUS (03/05/2024 5:44 AM EDT) Phosphorus 2.5 2.5 - 4.8 mg/dL 03/05/2024 6:39 AM EDT LABORATORY [facility] Blood Venous blood specimen / Unknown Venipuncture / Unknown 03/05/2024 5:44 AM EDT 03/05/2024 6:03 AM EDT Min Min Adelaide TONY LAB BLOOD ORDERABLES Performing Organization Address [facility] de Phone Number LABORATORY [address] [phone] * MAGNESIUM (03/05/2024 5:44 AM EDT) Magnesium 2.0 1.5 - 2.6 mg/dL 03/05/2024 6:39 AM EDT LABORATORY [facility] Blood Venous blood specimen / Unknown Venipuncture / Unknown 03/05/2024 5:44 AM EDT 03/05/2024 6:03 AM EDT Min Min Adelaide TONY LAB BLOOD ORDERABLES Performing Organization Address [facility] de Phone Number LABORATORY [address] [phone] * (ABNORMAL) BASIC METABOLIC PANEL (03/05/2024 5:44 AM EDT) BUN 4(L) 6 - 20 mg/dL 03/05/2024 6:39 AM EDT LABORATORY [facility] Creatinine 0.7 0.5 - 1.0 mg/dL 03/05/2024 6:39 AM EDT LABORATORY [facility] Estimated Glomerular Filtration Rate >90 >=60 mL/min 03/05/2024 6:39 AM EDT LAB[facility]ATORY [facility] Comment:eGFR is calculated b ased on the CKD-EPI 2020 equation Sodium 139 135 - 146 mmol/L 03/05/2024 6:39 AM EDT LABORATORY [facility] Potassium 3.3(L) 3.5 - 5.1 mmol/L 03/05/2024 6:39 AM EDT LABORATORY [facility] Chloride 111(H) 98 - 107 mmol/L 03/05/2024 6:39 AM EDT LAB[facility]ATORY [facility] CO2 19(L) 22 - 32 mmol/L 03/05/2024 6:39 AM EDT LABORATORY [facility] Anion Gap 9 7 - 15 mmol/L 03/05/2024 6:39 AM EDT LABORATORY [facility] Glucose 94 70 - 120 mg/dL 03/05/2024 6:39 AM EDT LABORATORY [facility] Calcium 8.4 8.4 - 10.2 mg/dL 03/05/2024 6:39 AM EDT LAB[facility]ATORY [facility] Blood Venous blood specimen / Unknown Venipuncture / Unknown 03/05/2024 5:44 AM EDT 03/05/2024 6:03 AM EDT Min Min Adelaide TONY LAB BLOOD ORDERABLES Performing Organization Address City/[facility]/ZIP Co de Phone Number LABORATORY [address] [phone] * MAGNESIUM (03/04/2024 5:25 AM EDT) Magnesium 2.1 1.5 - 2.6 mg/dL 03/04/2024 6:12 AM EDT LABORATORY GL Blood Venous blood specimen / Unknown Venipuncture / Unknown 03/04/2024 5:25 AM EDT 03/04/2024 5:54 AM EDT Min Min Adelaide TONY LAB BLOOD ORDERABLES Performing Organization Address City/[facility]/ZIP Co de Phone Number LABORATORY [address] [address] * (ABNORMAL) BASIC METABOLIC PANEL (03/04/2024 5:25 AM EDT) BUN 3(L) 6 - 20 mg/dL 03/04/2024 6:12 AM EDT LABORATORY GL Creatinine 0.7 0.5 - 1.0 mg/dL 03/04/2024 6:12 AM EDT LABORATORY GL Estimated Glomerular Filtration Rate >90 >=60 mL/min 03/04/2024 6:12 AM EDT LABORATORY GL Comment:eGFR is calculated b ased on the CKD-EPI 2020 equation Sodium 137 135 - 146 mmol/L 03/04/2024 6:12 AM EDT LABORATORY [facility] Potassium 3.4(L) 3.5 - 5.1 mmol/L 03/04/2024 6:12 AM EDT LABORATORY [facility] Chloride 111(H) 98 - 107 mmol/L 03/04/2024 6:12 AM EDT LABORATORY [facility] CO2 18(L) 22 - 32 mmol/L 03/04/2024 6:12 AM EDT LABORATORY GL Anion Gap 8 7 - 15 mmol/L 03/04/2024 6:12 AM EDT LABORATORY [facility] Glucose 94 70 - 120 mg/dL 03/04/2024 6:12 AM EDT LABORATORY [facility] Calcium 8.4 8.4 - 10.2 mg/dL 03/04/2024 6:12 AM EDT LABORATORY GL Blood Venous blood specimen / Unknown Venipuncture / Unknown 03/04/2024 5:25 AM EDT 03/04/2024 5:54 AM EDT Min Min Adelaide TONY LAB BLOOD ORDERABLES LABORATORY [address] [address] * (ABNORMAL) DIFFERENTIAL, AUTOMATED (03/04/2024 5:24 AM EDT) WBC 6.66 4.00 - 10.80 K/uL 03/04/2024 5:59 AM EDT LABORATORY GL Neutrophils % 46.8 40.0 - 75.0 % 03/04/2024 5:59 AM EDT LABORATORY [facility] Lymphocytes % 43.1(H) 18.0 - 42.0 % 03/04/2024 5:59 AM EDT LABORATORY [facility] Monocytes % 7.8 1.0 - 11.0 % 03/04/2024 5:59 AM EDT LABORATORY GL Eosinophils % 1.5 0.0 - 6.0 % 03/04/2024 5:59 AM EDT LABORATORY GL Basophils % 0.6 0.0 - 2.0 % 03/04/2024 5:59 AM EDT LABORATORY [facility] Immature Granulocytes % 0.2 0.0 - 2.0 % 03/04/2024 5:59 AM EDT LABORATORY [facility] Absolute Neutrophils 3.12 1.80 - 7.70 K/uL 03/04/2024 5:59 AM EDT LABORATORY [facility] Absolute Lymphocytes 2.87 1.00 - 4.80 K/ul 03/04/2024 5:59 AM EDT LABORATORY [facility] Absolute Monocytes 0.52 0.00 - 1.10 K/uL 03/04/2024 5:59 AM EDT LABORATORY [facility] Absolute Eosinophils 0.10 0.00 - 0.70 K/uL 03/04/2024 5:59 AM EDT LABORATORY [facility] Absolute Basophils 0.04 0.00 - 0.20 K/uL 03/04/2024 5:59 AM EDT LABORATORY [facility] Absolute Immature Granulocytes 0.01 0.00 - 0.20 K/uL 03/04/2024 5:59 AM EDT LABORATORY [facility] Blood Venous blood specimen / Unknown Venipuncture / Unknown 03/04/2024 5:24 AM EDT 03/04/2024 5:54 AM EDT Min Min Adelaide TONY LAB BLOOD ORDERABLES LABORATORY [address] [address] * (ABNORMAL) CBC (03/04/2024 5:24 AM EDT) Pathologist [facility] WBC 6.66 4.00 - 10.80 K/uL 03/04/2024 5:59 AM EDT LABORATORY [facility] RBC 3.84 3.85 - 5.15 M/uL 03/04/2024 5:59 AM EDT LABORATORY GL HGB 11.8(L) 12.0 - 15.3 g/dL 03/04/2024 5:59 AM EDT LABORATORY GL HCT 35.3(L) 36.0 - 45.2 % 03/04/2024 5:59 AM EDT LABORATORY GL MCV 91.9 81.5 - 97.5 fL 03/04/2024 5:59 AM EDT LABORATORY GL MCH 30.7 27.0 - 34.0 pg 03/04/2024 5:59 AM EDT LABORATORY GL MCHC 33.4 32.0 - 36.0 g/dL 03/04/2024 5:59 AM EDT LABORATORY [facility] RDW 12.5 11.5 - 15.5 % 03/04/2024 5:59 AM EDT LABORATORY [facility] PLT 306 140 - 400 K/uL 03/04/2024 5:59 AM EDT LABORATORY [facility] MPV 9.1 6.6 - 11.1 fL 03/04/2024 5:59 AM EDT LABORATORY GL nRBCs 0 <=0 /100 WBCs 03/04/2024 5:59 AM EDT LABORATORY [facility] Blood Venous blood specimen / Unknown Venipuncture / Unknown 03/04/2024 5:24 AM EDT 03/04/2024 5:54 AM EDT Min Min Adelaide TONY LAB BLOOD ORDERABLES Performing Organization Address City/State/[facility] Co de Phone Number LABORATORY [address] [address] * XR ABDOMEN 1 VIEW (03/03/2024 6:42 PM EDT) Anatomical Region Laterality Modality Abdomen, Pelvis Digital Radiogra phy 03/03/2024 6:31 PM EDT Impressions 03/03/2024 8:21 PM EDT IMPRESSION: Nonobstructive bowel gas pattern. THIS DOCUMENT HAS BEEN ELECTRONICALLY SIGNED BY ALVINO SEYMOUR MD Narrative 03/03/2024 8:21 PM EDT PROCEDURE INFORMATION: Exam: XR Abdomen Exam date and time: 03/03/2024 6:31 PM Age: 48 years old Clinical indication: Nausea; Abdominal pain; Generalized; Additional info: Vomiting, abd pain TECHNIQUE: Imaging protocol: Radiologic exam of the abdomen. Views: Frontal supine view of the abdomen. 1 View. COMPARISON: CT ABD/PELVIS W IV CONTRAST - WO ORAL CONTRAST 03/01/2024 10:01 PM FINDINGS: Gastrointestinal tract: Prominent gas-filled loops of colon with likely intraluminal fluid as better visualized on prior recent CT. Nonobstructive bowel gas pattern. Bones/joints: Unremarkable. Procedure Note Alvino Seymour MD - 03/03/2024 PROCEDURE INFORMATION: Exam: XR Abdomen Exam date and time: 03/03/2024 6:31 PM Age: 48 years old Clinical indication: Nausea; Abdominal pain; Generalized; Additional info: Vomiting, abd pain TECHNIQUE: Imaging protocol: Radiologic exam of the abdomen. Views: Frontal supine view of the abdomen. 1 View. COMPARISON: CT ABD/PELVIS W IV CONTRAST - WO ORAL CONTRAST 03/01/2024 10:01 PM FINDINGS: Gastrointestinal tract: Prominent gas-filled loops of colon with likely intraluminal fluid as better visualized on prior recent CT. Nonobstructive bowel gas pattern. Bones/joints: Unremarkable. IMPRESSION IMPRESSION: Nonobstructive bowel gas pattern. THIS DOCUMENT HAS BEEN ELECTRONICALLY SIGNED BY ALVINO SEYMOUR MD Min Min Adelaide TONY RADIOLOGY ([facility]) * GASTROINTESTINAL PATHOGEN PANEL CULTURE (03/03/2024 10:21 AM EDT) Culture Growth No Aeromonas species or Plesiomonas species isolated. 03/05/2024 10:01 AM EDT LABORATORY [facility] Stool Stool specimen / Unknown Non-blood Collection / Unknown 03/03/2024 10:21 AM EDT 03/03/2024 10:24 AM EDT Narrative LABORATORY [facility] - 03/05/2024 10:01 AM EDT Reduced normal chrissy. Clinical correlation needed. Gary Benton PA-C LAB MICRO - GENERAL ORDERABLES LABORATORY [facility] [address] [place] [address] * GASTROINTESTINAL PATHOGEN PANEL PCR (03/03/2024 10:21 AM EDT) Pathologist [facility] Campylobacter group by PCR Negative Negative 03/04/2024 9:35 AM EDT LABORATORY [facility] Salmonella species by PCR Negative Negative 03/04/2024 9:35 AM EDT LABORATORY [facility] Shigella species by PCR Negative Negative 03/04/2024 9:35 AM EDT LABORATORY [facility] Vibrio group by PCR Negative Negative 03/04/2024 9:35 AM EDT LABORATORY [facility] Yersinia enterocolitica by PCR Negative Negative 03/04/2024 9:35 AM EDT LABORATORY [facility] Shiga Toxin 1 Gene by PCR Negative Negative 03/04/2024 9:35 AM EDT LABORATORY [facility] Shiga Toxin 2 Gene by PCR Negative Negative 03/04/2024 9:35 AM EDT LABORATORY [facility] Norovirus by PCR Negative Negative 03/04/20 24 9:35 AM EDT LABORATORY [facility] Rotavirus by PCR Negative Negative 03/04/20 24 9:35 AM EDT LABORATORY [facility] Stool Stool specimen / Unknown Non-blood Collection / Unknown 03/03/2024 10:21 AM EDT 03/03/2024 10:24 AM EDT Gary Benton PA-C LAB MICRO - GENERAL ORDERABLES LABORATORY [facility] [address] [place] [address] * DIFFERENTIAL, AUTOMATED (03/03/2024 7:55 AM EDT) Pathologist [facility] WBC 6.90 4.00 - 10.80 K/uL 03/03/2024 8:09 AM EDT LABORATORY GL Neutrophils % 52.0 40.0 - 75.0 % 03/03/2024 8:09 AM EDT LABORATORY GL Lymphocytes % 39.0 18.0 - 42.0 % 03/03/2024 8:09 AM EDT LABORATORY GL Monocytes % 7.2 1.0 - 11.0 % 03/03/2024 8:09 AM EDT LABORATORY GL Eosinophils % 1.3 0.0 - 6.0 % 03/03/2024 8:09 AM EDT LABORATORY GL Basophils % 0.4 0.0 - 2.0 % 03/03/2024 8:09 AM EDT LABORATORY GL Immature Granulocytes % 0.1 0.0 - 2.0 % 03/03/2024 8:09 AM EDT LABORATORY GL Absolute Neutrophils 3.58 1.80 - 7.70 K/uL 03/03/2024 8:09 AM EDT LABORATORY GL Absolute Lymphocytes 2.69 1.00 - 4.80 K/ul 03/03/2024 8:09 AM EDT LABORATORY [facility] Absolute Monocytes 0.50 0.00 - 1.10 K/uL 03/03/2024 8:09 AM EDT LABORATORY GL Absolute Eosinophils 0.09 0.00 - 0.70 K/uL 03/03/2024 8:09 AM EDT LABORATORY [facility] Absolute Basophils 0.03 0.00 - 0.20 K/uL 03/03/2024 8:09 AM EDT LABORATORY [facility] Absolute Immature Granulocytes 0.01 0.00 - 0.20 K/uL 03/03/2024 8:09 AM EDT LABORATORY [facility] Blood Venous blood specimen / Unknown Venipuncture / Unknown 03/03/2024 7:55 AM EDT 03/03/2024 7:58 AM EDT Min Min Adelaide TONY LAB BLOOD ORDERABLES LABORATORY [address] [address] * (ABNORMAL) CBC (03/03/2024 7:55 AM EDT) Pathologist [facility] WBC 6.90 4.00 - 10.80 K/uL 03/03/2024 8:09 AM EDT LABORATORY GL RBC 3.69 3.85 - 5.15 M/uL 03/03/2024 8:09 AM EDT LABORATORY [facility] HGB 11.4(L) 12.0 - 15.3 g/dL 03/03/2024 8:09 AM EDT LABORATORY [facility] HCT 34.1(L) 36.0 - 45.2 % 03/03/2024 8:09 AM EDT LABORATORY GL MCV 92.4 81.5 - 97.5 fL 03/03/2024 8:09 AM EDT LABORATORY [facility] MCH 30.9 27.0 - 34.0 pg 03/03/2024 8:09 AM EDT LABORATORY [facility] MCHC 33.4 32.0 - 36.0 g/dL 03/03/2024 8:09 AM EDT LABORATORY [facility] RDW 12.4 11.5 - 15.5 % 03/03/2024 8:09 AM EDT LABORATORY [facility] PLT 289 140 - 400 K/uL 03/03/2024 8:09 AM EDT LABORATORY [facility] MPV 9.0 6.6 - 11.1 fL 03/03/2024 8:09 AM EDT LABORATORY [facility] nRBCs 0 <=0 /100 WBCs 03/03/2024 8:09 AM EDT LABORATORY [facility] Blood Venous blood specimen / Unknown Venipuncture / Unknown 03/03/2024 7:55 AM EDT 03/03/2024 7:58 AM EDT Min Min [place] TONY LAB BLOOD ORDERABLES LABORATORY [address] [phone] * PHOSPHORUS (03/03/2024 7:55 AM EDT) Phosphorus 2.7 2.5 - 4.8 mg/dL 03/03/2024 8:17 AM EDT LABORATORY [facility] Blood Venous blood specimen / Unknown Venipuncture / Unknown 03/03/2024 7:55 AM EDT 03/03/2024 7:58 AM EDT Min Min Adelaide TONY LAB BLOOD ORDERABLES LABORATORY [address] [address] * MAGNESIUM (03/03/2024 7:55 AM EDT) Magnesium 2.0 1.5 - 2.6 mg/dL 03/03/2024 8:17 AM EDT LABORATORY GL Blood Venous blood specimen / Unknown Venipuncture / Unknown 03/03/2024 7:55 AM EDT 03/03/2024 7:58 AM EDT Min Min Adelaide TONY LAB BLOOD ORDERABLES LABORATORY GL [address] [place] [address] * (ABNORMAL) COMPREHENSIVE METABOLIC PANEL (03/03/2024 7:55 AM EDT) BUN 5(L) 6 - 20 mg/dL 03/03/2024 8:17 AM EDT LABORATORY GL Creatinine 0.8 0.5 - 1.0 mg/dL 03/03/2024 8:17 AM EDT LABORATORY [facility] Estimated Glomerular Filtration Rate >90 >=60 mL/min 03/03/2024 8:17 AM EDT LABORATORY [facility] Comment:eGFR is calculated b ased on the CKD-EPI 2020 equation Sodium 140 135 - 146 mmol/L 03/03/2024 8:17 AM EDT LABORATORY [facility] Potassium 3.8 3.5 - 5.1 mmol/L 03/03/2024 8:17 AM EDT LABORATORY [facility] Chloride 109(H) 98 - 107 mmol/L 03/03/2024 8:17 AM EDT LABORATORY [facility] CO2 23 22 - 32 mmol/L 03/03/2024 8:17 AM EDT LABORATORY [facility] Anion Gap 8 7 - 15 mmol/L 03/03/2024 8:17 AM EDT LABORATORY [facility] Glucose 102 70 - 120 mg/dL 03/03/2024 8:17 AM EDT LABORATORY [facility] Albumin 3.4(L) 3.8 - 5.0 g/dL 03/03/2024 8:17 AM EDT LABORATORY [facility] AST 18 10 - 35 U/L 03/03/2024 8:17 AM EDT LABORATORY [facility] Alkaline Phosphatase 101 35 - 130 U/L 03/03/2024 8:17 AM EDT LABORATORY [facility] Bilirubin, Total <0.2 <=1.2 mg/dL 03/03/2024 8:17 AM EDT LABORATORY [facility] Calcium 8.0(L) 8.4 - 10.2 mg/dL 03/03/2024 8:17 AM EDT LABORATORY [facility] Protein 5.5(L) 6.0 - 8.3 g/dL 03/03/2024 8:17 AM EDT LABORATORY GL ALT 17 10 - 35 U/L 03/03/2024 8:17 AM EDT LABORATORY GL Blood Venous blood specimen / Unknown Venipuncture / Unknown 03/03/2024 7:55 AM EDT 03/03/2024 7:58 AM EDT Min Slick Bryson MD LAB BLOOD ORDERABLES Performing Organization Address City/[facility]/ZIP Co de Phone Number LABORATORY [address] [address] * CLOSTRIDIUM DIFFICILE, PCR (03/02/2024 8:50 AM EDT) Stool Consistency Liquid 03/02/2024 10:04 AM EDT LABORATORY [facility] Clostridium difficile Result Negative. No C. difficile toxin B gene DNA detected by PCR (Amplified Probe). Negative 03/02/2024 10:04 AM EDT LABORATORY [facility] Stool Stool specimen / Unknown Non-blood Collection / Unknown 03/02/2024 8:50 AM EDT 03/02/2024 8:57 AM EDT Gary Benton PA-C LAB MICRO - GENERAL ORDERABLES Performing Organization Address City/[facility]/ZIP Co de Phone Number LABORATORY [address] [address] * (ABNORMAL) BASIC METABOLIC PANEL (03/02/2024 8:32 AM EDT) BUN 13 6 - 20 mg/dL 03/02/2024 8:52 AM EDT LABORATORY GL Creatinine 0.8 0.5 - 1.0 mg/dL 03/02/2024 8:52 AM EDT LABORATORY GL Estimated Glomerular Filtration Rate >90 >=60 mL/min 03/02/2024 8:52 AM EDT LABORATORY [facility] Comment:eGFR is calculated b ased on the CKD-EPI 2020 equation Sodium 137 135 - 146 mmol/L 03/02/2024 8:52 AM EDT LABORATORY [facility] Potassium 4.1 3.5 - 5.1 mmol/L 03/02/2024 8:52 AM EDT LABORATORY [facility] Chloride 105 98 - 107 mmol/L 03/02/2024 8:52 AM EDT LABORATORY [facility] CO2 19(L) 22 - 32 mmol/L 03/02/2024 8:52 AM EDT LABORATORY [facility] Anion Gap 13 7 - 15 mmol/L 03/02/2024 8:52 AM EDT LABORATORY [facility] Glucose 112 70 - 120 mg/dL 03/02/2024 8:52 AM EDT LABORATORY [facility] Calcium 8.5 8.4 - 10.2 mg/dL 03/02/2024 8:52 AM EDT LABORATORY GL Blood Venous blood specimen / Unknown Venipuncture / Unknown 03/02/2024 8:32 AM EDT 03/02/2024 8:35 AM EDT Gary Benton PA-C LAB BLOOD ORDERABLES LABORATORY [facility] [address] [place] [address] * CBC (03/02/2024 8:32 AM EDT) WBC 9.73 4.00 - 10.80 K/uL 03/02/2024 8:53 AM EDT LABORATORY [facility] RBC 4.14 3.85 - 5.15 M/uL 03/02/2024 8:53 AM EDT LABORATORY GL HGB 13.0 12.0 - 15.3 g/dL 03/02/2024 8:53 AM EDT LABORATORY GL HCT 39.0 36.0 - 45.2 % 03/02/2024 8:53 AM EDT LABORATORY GL MCV 94.2 81.5 - 97.5 fL 03/02/2024 8:53 AM EDT LABORATORY GL MCH 31.4 27.0 - 34.0 pg 03/02/2024 8:53 AM EDT LABORATORY GL MCHC 33.3 32.0 - 36.0 g/dL 03/02/2024 8:53 AM EDT LABORATORY [facility] RDW 12.4 11.5 - 15.5 % 03/02/2024 8:53 AM EDT LABORATORY [facility] PLT 326 140 - 400 K/uL 03/02/2024 8:53 AM EDT LABORATORY [facility] MPV 9.0 6.6 - 11.1 fL 03/02/2024 8:53 AM EDT LABORATORY [facility] nRBCs 0 <=0 /100 WBCs 03/02/2024 8:53 AM EDT LABORATORY [facility] Blood Venous blood specimen / Unknown Venipuncture / Unknown 03/02/2024 8:32 AM EDT 03/02/2024 8:35 AM EDT Gayr Benton PA-C LAB BLOOD ORDERABLES LABORATORY [address] [address] * CT ABD/PELVIS W IV CONTRAST - WO ORAL CONTRAST (03/01/2024 10:11 PM EDT) Anatomical Region Laterality Modality Body, Abdomen, Pelvis Computed T omography 03/01/2024 10:0 1 PM EDT Impressions 03/01/2024 10:23 PM EDT IMPRESSION: Mild proctitis worsened since prior. Fluid throughout colon and rectum compatible with a mild colitis. THIS DOCUMENT HAS BEEN ELECTRONICALLY SIGNED BY DINORAH SAMUELS MD Narrative 03/01/2024 10:23 PM EDT PROCEDURE INFORMATION: Exam: CT Abdomen And Pelvis With Contrast Exam date and time: 03/01/2024 10:01 PM Age: 48 years old Clinical indication: Abdominal pain; Additional info: Vomiting, diarrhea, ongoing pain. History of colitis per prior CT TECHNIQUE: Imaging protocol: Computed tomography of the abdomen and pelvis with contrast. Radiation optimization: All CT scans at this facility use at least one of these dose optimization techniques: automated exposure control; mA and/or kV adjustment per patient size (includes targeted exams where dose is matched to clinical indication); or iterative reconstruction. Contrast material: ISOVUE 370; Contrast volume: 80 ml; Contrast route: INTRAVENOUS (IV); COMPARISON: CT ABD/PELVIS W IV CONTRAST - WO ORAL CONTRAST 12/28/2023 4:05 PM FINDINGS: Liver: No mass. Gallbladder and biliary ducts: No calcified stones. No gross ductal dilation. Pancreas: No ductal dilation. No mass . Spleen: No splenomegaly or suspicious lesions. Adrenal glands: No suspicious mass. Kidneys and ureters: No renal masses or hydronephrosis bilaterally. Stomach and bowel: Fluid-filled colon and rectum; mild rectal mucosal hyperemia. Rectal hyperemia more pronounced than prior. No significant colonic wall thickening. No focal pathology in the small bowel. Appendix: No evidence of appendicitis. Intraperitoneal space: No free air. No significant fluid collection. Vasculature: No abdominal aortic aneurysm. Lymph nodes: No significantly enlarged lymph nodes. Urinary bladder: No gross wall thickening. Reproductive: Unremarkable as visualized. Bones/joints: No acute fracture or subluxation. Soft tissues: Bilateral breast implants. Procedure Note Dinorah Samuels MD - 03/01/2024 PROCEDURE INFORMATION: Exam: CT Abdomen And Pelvis With Contrast Exam date and time: 03/01/2024 10:01 PM Age: 48 years old Clinical indication: Abdominal pain; Additional info: Vomiting, diarrhea, ongoing pain. History of colitis per prior CT TECHNIQUE: Imaging protocol: Computed tomography of the abdomen and pelvis withcontrast. Radiation optimization: All CT scans at this facility use at least one ofthese dose optimization techniques: automated exposure control; mA and/or kV adjustment per patient size (includes targeted exams where dose is matchedto clinical indication); or iterative reconstruction. Contrast material: ISOVUE 370; Contrast volume: 80 ml; Contrast route: INTRAVENOUS (IV); COMPARISON: CT ABD/PELVIS W IV CONTRAST - WO ORAL CONTRAST 12/28/2023 4:05 PM FINDINGS: Liver: No mass. Gallbladder and biliary ducts: No calcified stones. No gross ductaldilation. Pancreas: No ductal dilation. No mass . Spleen: No splenomegaly or suspicious lesions. Adrenal glands: No suspicious mass. Kidneys and ureters: No renal masses or hydronephrosis bilaterally. Stomach and bowel: Fluid-filled colon and rectum; mild rectal mucosal hyperemia. Rectal hyperemia more pronounced than prior. No significantcolonic wall thickening. No focal pathology in the small bowel. Appendix: No evidence of appendicitis. Intraperitoneal space: No free air. No significant fluid collection. Vasculature: No abdominal aortic aneurysm. Lymph nodes: No significantly enlarged lymph nodes. Urinary bladder: No gross wall thickening. Reproductive: Unremarkable as visualized. Bones/joints: No acute fracture or subluxation. Soft tissues: Bilateral breast implants. IMPRESSION IMPRESSION: Mild proctitis worsened since prior. Fluid throughout colon and rectum compatible with a mild colitis. THIS DOCUMENT HAS BEEN ELECTRONICALLY SIGNED BY DINORAH SAMUELS MD Renetta Teixeira MD RAD CT * (ABNORMAL) TOXICOLOGY, URINESCREEN W/O CONFIRMATION (03/01/2024 9:20 PM EDT) [facility] Amphetamines Screen, U Negative Negative 03/01/2024 10:15 PM EDT [facility] Benzodiazepines Screen, U Positive(A) Negative 03/01/2024 10:15 PM EDT [facility] Cannabinoids Screen, U Negative Negative 03/01/2024 10:15 PM EDT [facility] Cocaine Metabolite Screen, U Negative Negative 03/01/2024 10:15 PM EDT [facility] Fentanyl Screen, U Negative Negative 2023 10:15 PM EDT [facility] Hydrocodone Screen, U Negative Negative 03/01/2024 10:15 PM EDT [facility] Methadone Metabolite Screen, U Negative Negative 03/01/2024 10:15 PM EDT [facility] Morphine/Codeine Screen, U Positive(A) Negative 03/01/2024 10:15 PM EDT [facility] Oxycodone Screen, U Negative Negative 03/01/2024 10:15 PM EDT [facility] Urine Non-blood Collection / Unknown 03/01/2024 9:20 PM EDT 03/01/2024 9:23 PM EDT Narrative [facility] - 03/01/2024 10:15 PM EDT Cutoff Concentrations: Drug Level Amphetamines 500 ng/mL Benzodiazepines 100 ng/mL Cannabinoids 50 ng/mL Cocaine Metabolite 150 ng/mL Fentanyl 1 ng/mL Hydrocodone / Hydromorphone 300 ng/mL Methadone Metabolite 100 ng/mL Morphine / Codeine 300 ng/mL Oxycodone / Oxymorphone 100 ng/mL Screening results are presumptive and can only be used for medical purposes. Confirmatory testing is available upon request. Renetta Teixeira MD LAB URINE ORDERAB LES Performing Organization Address City/[facility]/ZIP Co de Phone Number LABORATORY [facility] [address] [place] [address] * (ABNORMAL) URINALYSIS, REFLEX TO MICROSCOPIC (03/01/2024 9:20 PM EDT) Color, Urine Yellow Light Yellow, Yellow, Dark Yellow 03/01/2024 9:33 PM EDT LABORATORY GL Clarity, Urine Clear Clear 03/01/2024 9:33 PM EDT LABORATORY GL Glucose, Urine Negative Negative mg/dL 03/01/2024 9:33 PM EDT LABORATORY GL Bilirubin, Urine Negative Negative 03/01/2024 9:33 PM EDT LABORATORY GL Ketone, Urine Negative Negative mg/dL 03/01/2024 9:33 PM EDT LABORATORY GL Specific [place], Urine 1.027 1.003 - 1.030 03/01/2024 9:33 PM EDT LABORATORY GL Blood, Urine Negative Negative 03/01/2024 9:33 PM EDT LABORATORY GL pH, Urine 6.0 5.0 - 7.5 Units 03/01/2024 9:33 PM EDT LABORATORY GL Protein, Urine Trace(A) Negative mg/dL 03/01/2024 9:33 PM EDT LABORATORY GL Urobilinogen, Urine 0.2 0.2, 1.0 mg/dL 03/01/2024 9:33 PM EDT LABORATORY GL Nitrite, Urine Negative Negative 03/01/2024 9:33 PM EDT LABORATORY GL Esterase, Urine Negative Negative 9:33 PM EDT LABORATORY [facility] Comment, Urine 03/01/2024 9:33 PM EDT LABORATORY [facility] Comment:Screen negative - Mi croscopic not performed. Urine Non-blood Collection / Unknown 03/01/2024 9:20 PM EDT 03/01/2024 9:23 PM EDT Renetta Teixeira MD LAB URINE ORDERAB LES Performing Organization Address [facility]/ZIP Co de Phone Number LABORATORY [facility] [address] [place] [address] * TROPONIN T, HIGH SENSITIVITY (03/01/2024 9:09 PM EDT) Troponin T, High Sensitivity <6 <=14 ng/L 03/01/2024 9:48 PM EDT LABORATORY [facility] Blood Venous blood specimen / Unknown Venipuncture / Unknown 03/01/2024 9:09 PM EDT 03/01/2024 9:13 PM EDT Chad Cutler DO LAB BLOOD ORDERABLES LABORATORY [facility] [address] [place] [address] * ECG Interpret (03/01/2024 9:00 PM EDT) Narrative Renetta Teixeira MD - 03/01/2024 9:00 PM EDT Renetta Teixeira MD 03/01/2024 11:41 PM ECG Interpret Date/Time: 03/01/2024 9:00 PM Performed by: Renetta Teixeira MD Authorized by: Renetta Teixeira MD Previous ECG: Previous ECG: Compared to current Comments: Done at 18:06 shows sinus tachycardia, rate 113. Compared to prior EKG of 01/26/2024 done at 18:46, ST depressions are no longer present in the lateral precordial leads Renetta Teixeira MD PROCEDURE REPORT * XR ABDOMEN 2 VIEWS (03/01/2024 7:51 PM EDT) Anatomical Region Laterality Modality Abdomen, Pelvis Digital Radiogra phy 03/01/2024 7:46 PM EDT Impressions 03/01/2024 7:56 PM EDT IMPRESSION: Paucity of gas in small bowel. Gas in colon without pathologic dilation. Colonic air-fluid levels compatible with history of diarrhea. THIS DOCUMENT HAS BEEN ELECTRONICALLY SIGNED BY DINORAH SAMUELS MD Narrative 03/01/2024 7:56 PM EDT PROCEDURE INFORMATION: Exam: XR Abdomen Exam date and time: 03/01/2024 7:46 PM Age: 48 years old Clinical indication: Other: Ruq pain; Additional info: Vomiting, diarrhea, abdominal pain TECHNIQUE: Imaging protocol: Radiologic exam of the abdomen. Views: 2 Views. Upright and supine views. COMPARISON: CT ABD/PELVIS W IV CONTRAST - WO ORAL CONTRAST 12/28/2023 4:05 PM FINDINGS: Gastrointestinal tract: Paucity of gas in small bowel. Gas in colon without pathologic dilation. Scattered colonic air-fluid levels Intraperitoneal space: No free air. Bones/joints: Unremarkable for age. Procedure Note Dinorah Samuels MD - 03/01/2024 PROCEDURE INFORMATION: Exam: XR Abdomen Exam date and time: 03/01/2024 7:46 PM Age: 48 years old Clinical indication: Other: Ruq pain; Additional info: Vomiting, diarrhea, abdominal pain TECHNIQUE: Imaging protocol: Radiologic exam of the abdomen. Views: 2 Views. Upright and supine views. COMPARISON: CT ABD/PELVIS W IV CONTRAST - WO ORAL CONTRAST 12/28/2023 4:05 PM FINDINGS: Gastrointestinal tract: Paucity of gas in small bowel. Gas in colonwithout pathologic dilation. Scattered colonic air-fluid levels Intraperitoneal space: No free air. Bones/joints: Unremarkable for age. IMPRESSION IMPRESSION: Paucity of gas in small bowel. Gas in colon without pathologic dilation. Colonic air-fluid levels compatible with history of diarrhea. THIS DOCUMENT HAS BEEN ELECTRONICALLY SIGNED BY DINORAH SAMUELS MD Renetta Teixeira MD RADIOLOGY (RAD [facility]) * MAGNESIUM (03/01/2024 6:58 PM EDT) Magnesium 2.1 1.5 - 2.6 mg/dL 03/01/2024 7:54 PM EDT LABORATORY [facility] Blood Venous blood specimen / Unknown Venipuncture / Unknown 03/01/2024 6:58 PM EDT 03/01/2024 7:02 PM EDT Renetta Teixeira MD LAB BLOOD ORDERAB LES LABORATORY [address] [address] * (ABNORMAL) DIFFERENTIAL, AUTOMATED (03/01/2024 6:58 PM EDT) WBC 13.40(H) 4.00 - 10.80 K/uL 03/01/2024 7:05 PM EDT LABORATORY GL Neutrophils % 68.9 40.0 - 75.0 % 03/01/2024 7:05 PM EDT LABORATORY GL Lymphocytes % 24.7 18.0 - 42.0 % 03/01/2024 7:05 PM EDT LABORATORY GL Monocytes % 5.4 1.0 - 11.0 % 03/01/2024 7:05 PM EDT LABORATORY GL Eosinophils % 0.2 0.0 - 6.0 % 03/01/2024 7:05 PM EDT LABORATORY GL Basophils % 0.4 0.0 - 2.0 % 03/01/2024 7:05 PM EDT LABORATORY GL Immature Granulocytes % 0.4 0.0 - 2.0 % 03/01/2024 7:05 PM EDT LABORATORY [facility] Absolute Neutrophils 9.23(H) 1.80 - 7.70 K/uL 03/01/2024 7:05 PM EDT LABORATORY [facility] Absolute Lymphocytes 3.31 1.00 - 4.80 K/ul 03/01/2024 7:05 PM EDT LABORATORY [facility] Absolute Monocytes 0.73 0.00 - 1.10 K/uL 03/01/2024 7:05 PM EDT LABORATORY [facility] Absolute Eosinophils 0.03 0.00 - 0.70 K/uL 03/01/2024 7:05 PM EDT LABORATORY [facility] Absolute Basophils 0.05 0.00 - 0.20 K/uL 03/01/2024 7:05 PM EDT LABORATORY [facility] Absolute Immature Granulocytes 0.05 0.00 - 0.20 K/uL 03/01/2024 7:05 PM EDT LABORATORY [facility] Blood Venous blood specimen / Unknown Venipuncture / Unknown 03/01/2024 6:58 PM EDT 03/01/2024 7:02 PM EDT Chad Cutler DO LAB BLOOD ORDERABLES LABORATORY [address] [address] * (ABNORMAL) CBC (03/01/2024 6:58 PM EDT) WBC 13.40(H) 4.00 - 10.80 K/uL 03/01/2024 7:05 PM EDT LABORATORY [facility] RBC 5.64 3.85 - 5.15 M/uL 03/01/2024 7:05 PM EDT LABORATORY [facility] HGB 17.4(H) 12.0 - 15.3 g/dL 03/01/2024 7:05 PM EDT LABORATORY [facility] HCT 51.4(H) 36.0 - 45.2 % 03/01/2024 7:05 PM EDT LABORATORY [facility] MCV 91.1 81.5 - 97.5 fL 03/01/2024 7:05 PM EDT LABORATORY [facility] MCH 30.9 27.0 - 34.0 pg 03/01/2024 7:05 PM EDT LABORATORY [facility] MCHC 33.9 32.0 - 36.0 g/dL 03/01/2024 7:05 PM EDT LABORATORY [facility] RDW 12.3 11.5 - 15.5 % 03/01/2024 7:05 PM EDT LABORATORY [facility] PLT 448(H) 140 - 400 K/uL 03/01/2024 7:05 PM EDT LABORATORY [facility] MPV 8.9 6.6 - 11.1 fL 03/01/2024 7:05 PM EDT LABORATORY [facility] nRBCs 0 <=0 /100 WBCs 03/01/2024 7:05 PM EDT LABORATORY [facility] Blood Venous blood specimen / Unknown Venipuncture / Unknown 03/01/2024 6:58 PM EDT 03/01/2024 7:02 PM EDT Chad Cutler LAB BLOOD ORDERABLES LABORATORY [facility] [address] [place] [address] * (ABNORMAL) BETA-HCG, QUANTITATIVE (03/01/2024 6:58 PM EDT) Beta-HCG, Quantitative 3.9(H) <=1.0 mIU/mL 03/01/2024 7:29 PM EDT LABORATORY [facility] Blood Venous blood specimen / Unknown Venipuncture / Unknown 03/01/2024 6:58 PM EDT 03/01/2024 7:02 PM EDT Narrative LABORATORY [facility] - 03/01/2024 7:29 PM EDT hCG can serve as a screening assay for . However, early may not give a positive hCG test result. In addition, some non- women may have a hCG result slightly higher than the reference limit. Careful interpretation of the hCG with clinical history is required to determine whether the patient may be . Postmenopausal women have higher hCG than premenopausal women. The reference interval for non- premenopausal women is <= 1 mIU/mL, and for postmenopausal women is <= 7 mIU/mL. [facility] ([facility] LAB BLOOD ORDERABLES LABORATORY [address] [address] * EXTRA LIGHT BLUE TOP (03/01/2024 6:58 PM EDT) Blood Venous blood specimen / Unknown Venipuncture / Unknown 03/01/2024 6:58 PM EDT 03/01/2024 7:02 PM EDT [facility] LAB BLOOD ORDERABLES Performing Organization Address City/[facility]/ZIP Co de Phone Number LABORATORY [address] [address] * TROPONIN T, HIGH SENSITIVITY (03/01/2024 6:58 PM EDT) Pathologist [facility] Troponin T, High Sensitivity <6 <=14 ng/L 03/01/2024 7:21 PM EDT LABORATORY [facility] Blood Venous blood specimen / Unknown Venipuncture / Unknown 03/01/2024 6:58 PM EDT 03/01/2024 7:02 PM EDT [facility] LAB BLOOD ORDERABLES Performing Organization Address City/[facility]/ZIP Co de Phone Number LABORATORY [address] [address] * (ABNORMAL) COMPREHENSIVE METABOLIC PANEL (03/01/2024 6:58 PM EDT) BUN 19 6 - 20 mg/dL 03/01/2024 7:24 PM EDT LABORATORY [facility] Creatinine 1.1(H) 0.5 - 1.0 mg/dL 03/01/2024 7:24 PM EDT LABORATORY [facility] Estimated Glomerular Filtration Rate 62 >=60 mL/min 03/01/2024 7:24 PM EDT LABORATORY [facility] Comment:eGFR is calculated b ased on the CKD-EPI 2020 equation Sodium 137 135 - 146 mmol/L 03/01/2024 7:24 PM EDT LABORATORY [facility] Potassium 4.3 3.5 - 5.1 mmol/L 03/01/2024 7:24 PM EDT LABORATORY [facility] Chloride 101 98 - 107 mmol/L 03/01/2024 7:24 PM EDT LABORATORY [facility] CO2 22 22 - 32 mmol/L 03/01/2024 7:24 PM EDT LABORATORY [facility] Anion Gap 14 7 - 15 mmol/L 03/01/2024 7:24 PM EDT LABORATORY [facility] Glucose 102 70 - 120 mg/dL 03/01/2024 7:24 PM EDT LABORATORY [facility] Albumin 4.9 3.8 - 5.0 g/dL 03/01/2024 7:24 PM EDT LABORATORY [facility] AST 23 10 - 35 U/L 03/01/2024 7:24 PM EDT LABORATORY [facility] Alkaline Phosphatase 159(H) 35 - 130 U/L 03/01/2024 7:24 PM EDT LABORATORY [facility] Bilirubin, Total 0.2 <=1.2 mg/dL 03/01/2024 7:24 PM EDT LABORATORY [facility] Calcium 10.2 8.4 - 10.2 mg/dL 03/01/2024 7:24 PM EDT LABORATORY [facility] Protein 8.8(H) 6.0 - 8.3 g/dL 03/01/2024 7:24 PM EDT LABORATORY [facility] ALT 25 10 - 35 U/L 03/01/2024 7:24 PM EDT LABORATORY [facility] Blood Venous blood specimen / Unknown Venipuncture / Unknown 03/01/2024 6:58 PM EDT 03/01/2024 7:02 PM EDT Chad Cutler LAB BLOOD ORDERABLES LABORATORY [address] [address] * XR CHEST 2 VIEWS (03/01/2024 6:22 PM EDT) Anatomical Region Laterality Modality Chest Digital Radiogra phy 03/01/2024 6:24 PM EDT Impressions 03/01/2024 6:48 PM EDT IMPRESSION: No acute cardiopulmonary pathology. THIS DOCUMENT HAS BEEN ELECTRONICALLY SIGNED BY DINORAH SAMUELS MD Narrative 03/01/2024 6:48 PM EDT PROCEDURE INFORMATION: Exam: XR Chest Exam date and time: 03/01/2024 6:24 PM Age: 48 years old Clinical indication: Pain; Chest pressure; Additional info: Chest pain TECHNIQUE: Imaging protocol: Radiologic exam of the chest. Views: 2 views. COMPARISON: DX XR CHEST 1 VIEW 12/28/2023 2:16 PM FINDINGS: Lungs: No consolidation. Pleural spaces: No pleural effusion. No pneumothorax. Heart/Mediastinum: No cardiomegaly. Bones/joints: No acute fracture. Soft tissues: Bilateral breast implants. Procedure Note Dinorah Samuels MD - 03/01/2024 PROCEDURE INFORMATION: Exam: XR Chest Exam date and time: 03/01/2024 6:24 PM Age: 48 years old Clinical indication: Pain; Chest pressure; Additional info: Chest pain TECHNIQUE: Imaging protocol: Radiologic exam of the chest. Views: 2 views. COMPARISON: DX XR CHEST 1 VIEW 12/28/2023 2:16 PM FINDINGS: Lungs: No consolidation. Pleural spaces: No pleural effusion. No pneumothorax. Heart/Mediastinum: No cardiomegaly. Bones/joints: No acute fracture. Soft tissues: Bilateral breast implants. IMPRESSION IMPRESSION: No acute cardiopulmonary pathology. THIS DOCUMENT HAS BEEN ELECTRONICALLY SIGNED BY DINORAH SAMUELS MD Chad Cutler DO RADIOLOGY ([facility]) * RESPIRATORY PATHOGEN PANEL, PCR (03/01/2024 6:09 PM EDT) Adenovirus by PCR Negative Negative 024 7:08 PM EDT LABORATORY [facility] Coronavirus 229E by PCR Negative Negative 03/01/2024 7:08 PM EDT LABORATORY [facility] Coronavirus HKU1 by PCR Negative Negative 03/01/2024 7:08 PM EDT LABORATORY [facility] Coronavirus NL63 by PCR Negative Negative 03/01/2024 7:08 PM EDT LABORATORY [facility] Coronavirus OC43 by PCR Negative Negative 03/01/2024 7:08 PM EDT LABORATORY [facility] Coronavirus SARS-CoV-2 by PCR Negative Negative 03/01/2024 7:08 PM EDT LABORATORY [facility] Human Metapneumovirus by PCR Negative Negative 03/01/2024 7:08 PM EDT LABORATORY [facility] Rhinovirus/Enterovi ramakrishna by PCR Negative Negative 03/01/2024 7:08 PM EDT LABORATORY [facility] Influenza A Virus by PCR Negative Negative 03/01/2024 7:08 PM EDT LABORATORY [facility] Influenza B Virus by PCR Negative Negative 03/01/2024 7:08 PM EDT LABORATORY [facility] Parainfluenza Virus 1 by PCR Negative Negative 03/01/2024 7:08 PM EDT LABORATORY [facility] Parainfluenza Virus 2 by PCR Negative Negative 03/01/2024 7:08 PM EDT LABORATORY [facility] Parainfluenza Virus 3 by PCR Negative Negative 03/01/2024 7:08 PM EDT LABORATORY [facility] Parainfluenza Virus 4 by PCR Negative Negative 03/01/2024 7:08 PM EDT LABORATORY [facility] Respiratory Syncytial Virus by PCR Negative Negative 03/01/2024 7:08 PM EDT LABORATORY [facility] Bordetella pertussis by PCR Negative Negative 03/01/2024 7:08 PM EDT LABORATORY [facility] Chlamydia pneumoniae by PCR Negative Negative 03/01/2024 7:08 PM EDT LABORATORY [facility] Mycoplasma pneumoniae by PCR Negative Negative 03/01/2024 7:08 PM EDT LABORATORY [facility] Bordetella parapertussis by PCR Negative Negative 03/01/2024 7:08 PM EDT LABORATORY [facility] Comment: The primers that detect Rhinovirus may cross react with some Enterorviruses. The validation of bronchial specimens, tracheal aspirates, and throats for this assay was developed and performance characteristics determined by [employer] [employer]. The validation of alternate specimen types has not been cleared or approved by the U.S. Food and Drug Administration (FDA). It has been determined that such clearance or approval is not necessary. Upper Respiratory Mid-turbinate nasal swab / Unknown Non-blood Collection / Unknown 03/01/2024 6:09 PM EDT 03/01/2024 6:18 PM EDT Chad Cutler LAB MICRO - GENERAL ORDERABLES Performing Organization Address [facility] [place] [address] * EKG (03/01/2024 6:06 PM EDT) 03/01/2024 6:06 PM EDT Narrative Procedure Note Jim Cox DO - 03/01/2024 6:06 PM EDT REASON FOR STUDY: CHEST PAIN CONCLUSIONS: Sinus tachycardia Possible Left atrial enlargement Borderline ECG When compared with ECG of 26-Jan-2024 18:46, T wave inversion no longer evident in Inferior leads T wave inversion less evident in Anterior-lateral leads Ventricular Rate: 113 Atrial Rate: 113 TX Interval: 116 QRS Duration: 72 QT/QTc: 322/441 ms P-R-T [place]: 50 : 77 : 44 degrees Chad Cutler EKG Performing Organization Address [facility] de Phone Number [facility] documented in this encounter Visit Diagnoses Diagnosis Colitis- Primary Other and unspecified noninfectious gastroenteritis and colitis Acute colitis Other and unspecified noninfectious gastroenteritis and colitis Chest pain Chest pain, unspecified Other chest pain Other specified symptoms and signs involving the digestive system and abdomen Right upper quadrant pain Abdominal pain, right upper quadrant Vomiting, unspecified Diarrhea, unspecified Ulcerative (chronic) proctitis without complications (HCC) Unspecified abdominal pain Nausea with vomiting, unspecified Hypokalemia Hypopotassemia Hypocalcemia Nausea, vomiting and diarrhea Diarrhea Esophageal reflux Fibromyalgia Mylagia and myositis, unspecified Generalized anxiety disorder Dysthymic disorder Irritable bowel syndrome with diarrhea Irritable bowel syndrome Gastroparesis History of colonic polyps Personal history of colonic polyps Colitis Other and unspecified noninfectious gastroenteritis and colitis Nausea and vomiting Nausea with vomiting documented in this encounter Administered Medications Inactive Administered Medications - up to 3 most recent administrations Medication Order MAR Action Action Date Dose Rate Site Acetaminophen (Tylenol) tab 650 mg 650 mg, Oral, Q6H PRN Pain, Mild, Fever >38C(100.5F), Starting on Mon03/01/24 at 2358, Until Mon03/06/24 at 1637, Maximum of 4 grams (4000 mg) per day. Given 03/06/2024 9:25 AM EDT 650 mg Given 03/05/2024 9:08 PM EDT 650 mg Given 03/04/2024 1:49 PM EDT 650 mg ciprofloxacin (Cipro) tab 500 mg 500 mg, Oral, ONCE, On Mon03/01/24 at 2300, For 1 dose, Hold antacids and iron for 3-4 hours before and after administration. Given 03/01/2024 11:38 PM EDT 500 mg ciprofloxacin (Cipro) tab 500 mg 500 mg, Oral, Q12H, First dose on 03/02/24 at 0900, Until Discontinued, Hold antacids and iron for 3-4 hours before and after administration. Given 03/03/2024 7:26 AM EDT 500 mg Given 03/02/2024 9:18 PM EDT 500 mg Given 03/02/2024 10:47 AM EDT 500 mg clonazePAM (KlonoPIN) tab 1 mg 1 mg, Oral, BID (.AM/PM), First dose (after last modification) on 03/02/24 at 0045, Until Discontinued Given 03/05/2024 9:09 PM EDT 1 mg Given 03/05/2024 10:34 AM EDT 1 mg Given 03/04/2024 9:08 PM EDT 1 mg Desvenlafaxine Succinate ER (Pristiq) tab 100 mg 100 mg, Oral, Daily(AM), First dose (after last reorder) on 03/02/24 at 0900, Until Discontinued, Swallow tablet whole; do not crush, chew, divide, or dissolve. Given 03/06/2024 9:19 AM EDT 100 mg Given 03/05/2024 10:35 AM EDT 100 mg Given 03/04/2024 7:40 AM EDT 100 mg dicyclomine (Bentyl) tab 20 mg 20 mg, Oral, QID PRN Other, abdominal pain, Starting on Mon03/03/24 at 1248, Until Mon03/05/24 at 0915 Given 03/03/2024 2:11 PM EDT 20 mg dicyclomine (Bentyl) tab 20 mg 20 mg, Oral, QID(AM/NOON/PM/HS), First dose (after last modification) on Mon03/05/24 at 1200, Until Discontinued Given 03/06/2024 5:58 AM EDT 20 mg Given 03/05/2024 9:08 PM EDT 20 mg Given 03/05/2024 6:03 PM EDT 20 mg Famotidine (Pepcid) tab 20 mg 20 mg, Oral, Q12H, First dose on Mon03/02/24 at 0945, Until Discontinued Given 03/06/2024 9:19 AM EDT 20 mg Given 03/05/2024 9:09 PM EDT 20 mg Given 03/05/2024 10:35 AM EDT 20 mg home medication stored in pharmacy Daily(AM), First dose on Mon03/06/24 at 0900, Until Discontinued, Routine, when the patient is ready for discharge contact pharmacy Iopamidol (Isovue 370) inj 80 mL 80 mL, Intravenous, ONCE, On Mon03/01/24 at 2245, For 1 dose, Radiology Medication Routing (Non-IR) Given 03/01/2024 10:45 PM EDT 80 mL isolyte-S pH 7.4 infusion Intravenous, at 100 mL/hr, Plasma-LYTE 148, isolyte-S, and isolyte-S pH 7.4 are considered equivalent - including for MAR barcode scanning., CONTINUOUS, Starting on Mon03/02/24 at 0030, Until Mon03/06/24 at 1637 Rate Verify 03/06/2024 6:29 AM EDT 100 mL/hr New Bag 03/06/2024 12:23 AM EDT 100 mL/hr Rate Change 03/05/2024 7:35 PM EDT 100 mL/hr keTORolac (Toradol) 30 MG/ML inj 30 mg 30 mg, IV Push, ONCE, On Mon03/01/24 at 2230, For 1 dose Given 03/01/2024 10:16 PM EDT 30 mg loperamide (Imodium) cap 2 mg 2 mg, Oral, Q4H PRN Diarrhea, Starting on Mon03/02/24 at 1543, Until Mon03/06/24 at 1637, Maximum of 16 mg per day recommended Given 03/04/2024 5:20 PM EDT 2 mg Given 03/02/2024 5:43 PM EDT 2 mg melatonin tab 3 mg 3 mg, Oral, HS PRN Insomnia, Starting on Mon03/01/24 at 2358, Until Mon03/06/24 at 1637 methylPHENIDATE (Ritalin) tab 20 mg 20 mg, Oral, TID 06;12;18, First dose on Mon03/02/24 at 1200, Until Discontinued Given 03/06/2024 5:58 AM EDT 20 mg Given 03/05/2024 6:03 PM EDT 20 mg Given 03/05/2024 11:54 AM EDT 20 mg metroNIDAZOLE (Flagyl) tab 500 mg 500 mg, Oral, ONCE, On Mon03/01/24 at 2300, For 1 dose Given 03/01/2024 11:38 PM EDT 500 mg metroNIDAZOLE (Flagyl) tab 500 mg 500 mg, Oral, Q8H, First dose on Mon03/02/24 at 0600, Last dose on Mon03/06/24 at 2200, For 5 days Given 03/03/2024 5:18 AM EDT 500 mg Given 03/02/2024 9:18 PM EDT 500 mg Given 03/02/2024 2:08 PM EDT 500 mg Morphine Sulfate (PF) inj 4 mg 4 mg, IV Push, ONCE, On Mon03/01/24 at 2015, For 1 dose Given 03/01/2024 8:28 PM EDT 4 mg morphine sulfate inj 2 mg 2 mg, IV Push, ONCE, On Mon03/01/24 at 2345, For 1 dose Given 03/02/2024 12:35 AM EDT 2 mg morphine sulfate inj 2 mg 2 mg, IV Push, Q3H PRN Pain, Severe, Starting on Mon03/02/24 at 0533, Until Mon03/06/24 at 1637 Given 03/05/2024 8:51 AM EDT 2 mg Given 03/03/2024 9:09 PM EDT 2 mg Given 03/03/2024 5:17 PM EDT 2 mg NSS 0.9% 1,737 mL bolus infusion IV Piggyback, at 1,737 mL/hr Administer over 60 Minutes, ONCE, 1 dose, On Mon03/01/24 at 2014 New Bag 03/01/2024 8:13 PM EDT 1,737 mL 1737 mL/hr NSS 0.9% 500 mL bolus infusion IV Piggyback, at 500 mL/hr Administer over 60 Minutes, ONCE, 1 dose, On Mon03/01/24 at 2045 New Bag 03/01/2024 10:14 PM EDT 500 mL 500 mL/hr omeprazole (PriLOSEC) cap 20 mg 20 mg, Oral, Daily(AM), First dose on Mon03/02/24 at 0900, Until Discontinued Given 03/06/2024 9:19 AM EDT 20 mg Given 03/05/2024 10:35 AM EDT 20 mg Given 03/04/2024 7:40 AM EDT 20 mg ondansetron (Zofran) inj 4 mg 4 mg, IV Push, ONCE, On Mon03/01/24 at 2014, For 1 dose Given 03/01/2024 8:15 PM EDT 4 mg ondansetron (Zofran) inj 4 mg 4 mg, IV Push, ONCE, On Mon03/01/24 at 2230, For 1 dose Given 03/01/2024 10:14 PM EDT 4 mg ondansetron (Zofran) inj 4 mg 4 mg, IV Push, Q6H PRN Nausea, Starting on Mon03/01/24 at 2358, Until Mon03/06/24 at 1637 Given 03/05/2024 8:44 AM EDT 4 mg Given 03/03/2024 11:26 PM EDT 4 mg Given 03/03/2024 5:10 PM EDT 4 mg potassium chloride 10 mEq in 100 mL ivpb LOCKED DOSE 10 mEq, Peripheral IV, Q1H, 3 doses, First dose on Mon03/05/24 at 1500, Last dose on Mon03/05/24 at 1700, Administer over 60 Minutes, Standard infusion duration is 60 minutes. New Bag 03/05/2024 6:07 PM EDT 10 mEq 100 mL/hr New Bag 03/05/2024 3:23 PM EDT 10 mEq 100 mL/hr potassium chloride ER tab 40 mEq 40 mEq, Oral, BID (.AM/PM), First dose on Mon03/02/24 at 0900, Until Discontinued Given 03/04/2024 9:08 PM EDT 40 mEq Given 03/04/2024 7:40 AM EDT 40 mEq Given 03/03/2024 9:18 PM EDT 40 mEq potassium chloride ER tab 40 mEq 40 mEq, Oral, TID(AM/NOON/HS), First dose (after last modification) on Mon03/05/24 at 1200, Until Discontinued Given 03/05/2024 11:54 AM EDT 40 mEq potassium chloride ER tab 40 mEq 40 mEq, Oral, TID(AM/NOON/HS), First dose (after last modification) on Mon03/05/24 at 2200, Until Discontinued Given 03/06/2024 5:58 AM EDT 40 mEq Given 03/05/2024 9:09 PM EDT 40 mEq QUEtiapine (SEROquel) tab 200 mg 200 mg, Oral, QHS, First dose on Mon03/02/24 at 0015, Until Discontinued Given 03/05/2024 9:09 PM EDT 200 mg Given 03/04/2024 9:08 PM EDT 200 mg Given 03/03/2024 9:07 PM EDT 200 mg rifAXIMin (Xifaxan) tab 550 mg 550 mg, Oral, BID (.AM/PM), First dose on Mon03/03/24 at 1330, Last dose on Mon03/09/24 at 2100, For 14 doses Given 03/06/2024 9:19 AM EDT 550 mg Given 03/05/2024 9:09 PM EDT 550 mg Given 03/05/2024 10:35 AM EDT 550 mg Simethicone (Mylicon) chew tab 80 mg 80 mg, Oral, QID(AM/NOON/PM/HS), First dose on Mon03/02/24 at 1200, Until Discontinued, Tablets need to be chewed before swallowing! Given 03/06/2024 5:58 AM EDT 80 mg Given 03/05/2024 9:09 PM EDT 80 mg Given 03/05/2024 6:03 PM EDT 80 mg sodium chloride 0.9 % flush/inj 3 mL 3 mL, IV Push, PRN Other, Line Patency, Starting on Mon03/01/24 at 2357, Until Mon03/06/24 at 1637, Do not flush if lock, PICC, or central line not in place, IV infusing or unable to flush technetium tc 99m sulfur colloid inj 500 microcurie 500 microcurie, Oral, ONCE, On Mon03/05/24 at 0830, For 1 dose, Radiology Medication Routing (Non-IR) Given 03/05/2024 8:25 AM EDT 500 microcuries trimethobenzamide (Tigan) inj 100 mg 100 mg, Intramuscular, QID PRN Nausea, Vomiting, Nausea/vomting unrelieved by zofran, Starting on Mon03/02/24 at 0533, Until Mon03/06/24 at 1637 Given 03/04/2024 6:32 PM EDT 100 mg Arm Left Upper Given 03/04/2024 4:01 AM EDT 100 mg De ltoid Right Upper Given 03/03/2024 5:54 PM EDT 100 mg De ltoid Left Upper vitamin b-12 (Cyanocobalamin) inj 1,000 mcg 1,000 mcg, Intramuscular, ONCE, On 03/02/24 at 0945, For 1 dose Given 03/02/2024 10:47 AM EDT 1,000 mcg Arm Left Upper documented in this encounter Active and Recently Administered Medications Times are shown in EDT. Scheduled Medication Order 03/04/2024 03/05/2024 03/06/2024 clonazePAM (KlonoPIN) tab 1 mg 1 mg, Oral, BID (.AM/PM), First dose (after last modification) on 03/02/24 at 0045, Until Discontinued 0736 (Not Given - Provider: Lula Garnica RN - Reason: Refused-Notify Provider - Comment: Pt states she does not take in AM; only takes in evening)2107 (Given - Provider: Arleth Cole RN) 103 (Given - Provider: Soumya Sanders RN)2108 (Given - Provider: Arleth Cole RN) 1000 (Not Given - Provider: Davida Sanford LPN - Reason: Other- Please add reason in Comments - Comment: pt refused; states she does not want it d/t making her drowsy) Desvenlafaxine Succinate ER (Pristiq) tab 100 mg 100 mg, Oral, Daily(AM), First dose (after last reorder) on Mon03/02/24 at 0900, Until Discontinued, Swallow tablet whole; do not crush, chew, divide, or dissolve. 0740 (Given - Provider: Lula Garnica RN) 1035 (Given - Provider: Soumya Sanders RN) 0919 (Given - Provider: Davida Sanford LPN) dicyclomine (Bentyl) tab 20 mg 20 mg, Oral, QID(AM/NOON/PM/HS), First dose (after last modification) on Mon03/05/24 at 1200, Until Discontinued 1154 (Given - Provider: Soumya Sanders RN)1803 (Given - Provider: Davida Sanford LPN)2108 (Given - Provider: Arleth Cole RN) 0558 (Given - Provider: Arleth Cole RN)1200 (Due) Famotidine (Pepcid) tab 20 mg 20 mg, Oral, Q12H, First dose on Mon03/02/24 at 0945, Until Discontinued 0740 (Given - Provider: Lula Garnica RN)2108 (Given - Provider: Arleth Cole RN) 1035 (Given - Provider: Soumya Sanders, DUSTY)2109 (Given - Provider: Arleth Cole RN) 0919 (Given - Provider: Davida Sanford LPN) home medication stored in pharmacy Daily(AM), First dose on Mon03/06/24 at 0900, Until Discontinued, Routine, when the patient is ready for discharge contact pharmacy 0900 (Order Check Addressed - Provider: Davida Sanford LPN) methylPHENIDATE (Ritalin) tab 20 mg 20 mg, Oral, TID 06;12;18, First dose on Mon03/02/24 at 1200, Until Discontinued 0402 (Given - Provider: Bladimir Vance RN)1122 (Given - Provider: Lula Garnica RN)1720 (Given - Provider: Lula Garnica RN) 0610 (Given - Provider: Arleth Cole RN)1154 (Given - Provider: Soumya Sanders RN)1803 (Given - Provider: Davida Sanford LPN) 0558 (Given - Provider: Arleth Cole RN)1200 (Due) omeprazole (PriLOSEC) cap 20 mg 20 mg, Oral, Daily(AM), First dose on Mon03/02/24 at 0900, Until Discontinued 0740 (Given - Provider: Lula Garnica RN) 1035 (Given - Provider: Soumya Sanders RN) 0919 (Given - Provider: Davida Sanford LPN) potassium chloride 10 mEq in 100 mL ivpb LOCKED DOSE () 10 mEq, Peripheral IV, Q1H, 3 doses, First dose on Mon03/05/24 at 1500, Last dose on Mon03/05/24 at 1700, Administer over 60 Minutes, Standard infusion duration is 60 minutes. 1523 (New Bag - Provider: Davida Sanford LPN)1700 (Due)1807 (New Bag - Provider: Davida Sanford LPN)1900 (Stopped - Provider: Arleth Cole RN) potassium chloride ER tab 40 mEq (CANCELED) 40 mEq, Oral, BID (.AM/PM), First dose on Mon03/02/24 at 0900, Until Discontinued 0740 (Given - Provider: Lula Garnica RN)2108 (Given - Provider: Arleth Cole RN) potassium chloride ER tab 40 mEq (CANCELED) 40 mEq, Oral, TID(AM/NOON/HS), First dose (after last modification) on Mon03/05/24 at 1200, Until Discontinued 1154 (Given - Provider: Soumya Sanders RN) potassium chloride ER tab 40 mEq 40 mEq, Oral, TID(AM/NOON/HS), First dose (after last modification) on Mon03/05/24 at 2200, Until Discontinued 2109 (Given - Provider: Arleth Cole RN) 0558 (Given - Provider: Arleth Cole RN)1200 (Due) QUEtiapine (SEROquel) tab 200 mg 200 mg, Oral, QHS, First dose on 03/02/24 at 0015, Until Discontinued 2107 (Given - Provider: Arleth Cole RN) 2108 (Given - Provider: Arleth Cole RN) rifAXIMin (Xifaxan) tab 550 mg 550 mg, Oral, BID (.AM/PM), First dose on Mon03/03/24 at 1330, Last dose on Mon03/09/24 at 2100, For 14 doses 0740 (Given - Provider: Lula Garnica RN)2107 (Given - Provider: Arleth Cole RN) 1035 (Given - Provider: Soumya Sanders, DUSTY)2108 (Given - Provider: Arleth Cole RN) 0919 (Given - Provider: Davida Sanford LPN) Simethicone (Mylicon) chew tab 80 mg 80 mg, Oral, QID(AM/NOON/PM/HS), First dose on 03/02/24 at 1200, Until Discontinued, Tablets need to be chewed before swallowing! 0402 (Given - Provider: Bladimir Vance RN)1122 (Given - Provider: Lula Garnica, DUSTY)1720 (Given - Provider: Lula Garnica RN)210 (Given - Provider: Arleth Cole RN) 0610 (Given - Provider: Arleth Cole RN)1154 (Given - Provider: Soumya Sanders, DUSTY)1803 (Given - Provider: Davida Sanford LPN)210 (Given - Provider: Arleth Cole RN) 0558 (Given - Provider: Arleth Cole RN)1200 (Due) technetium tc 99m sulfur colloid inj 500 microcurie (COMPLETED) 500 microcurie, Oral, ONCE, On Mon03/05/24 at 0830, For 1 dose, Radiology Medication Routing (Non-IR) 0825 (Given - Provider: Pinky Handley ELEMENT WINDING MACHINE TENDER) Continuous Medication Order 03/04/2024 03/05/2024 03/06/2024 isolyte-S pH 7.4 infusion Intravenous, at 100 mL/hr, Plasma-LYTE 148, isolyte-S, and isolyte-S pH 7.4 are considered equivalent - including for MAR barcode scanning., CONTINUOUS, Starting on 03/02/24 at 0030, Until Mon03/06/24 at 1637 0227 (Paused - Provider: Lula Garnica RN)0327 (Restarted - Provider: Lula Garnica, DUSTY)0327 (Paused - Provider: Lula Garnica, DUSTY)0355 (Restarted - Provider: Lula Garnica RN)0355 (Stopped - Provider: Lula Garnica RN)0357 (New Bag - Provider: Bladimir Vance RN)1253 (Stopped - Provider: Lula Garnica, DUSTY)1254 (New Bag - Provider: Lula Garnica RN)1900 (Rate Verify - Provider: Lula Garnica RN)2256 (New Bag - Provider: Hang Cooper RN) 0845 (Paused - Provider: Soumya Sanders RN)0847 (Restarted - Provider: Soumya Sanders RN)0852 (Paused - Provider: Soumya Sanders RN)0858 (Restarted - Provider: Soumya Sanders RN)0903 (KVO - Provider: Soumya Sanders RN)0923 (Stopped - Provider: Soumya Sanders RN)1013 (New Bag - Provider: Soumya Sanders RN)1022 (Stopped - Provider: Soumya Sanders RN)1033 (Restarted - Provider: Arleth Cole RN)1219 (Paused - Provider: Arleth Cole RN)1537 (Restarted - Provider: Arleth Cole RN)1916 (Paused - Provider: Arleth Cole RN)1916 (Rate Change - Provider: Arleth Cole RN)1935 (Paused - Provider: Arleth Cole RN)1935 (Rate Change - Provider: Arleth Cole, RN) 0002 (Stopped - Provider: Arleth Cole RN)0023 (New Bag - Provider: Arleth Cole RN)0629 (Rate Verify - Provider: Arleth Cole RN)1637 (Due: Stopped) PRN Medication Order 03/04/2024 03/05/2024 03/06/2024 Acetaminophen (Tylenol) tab 650 mg 650 mg, Oral, Q6H PRN Pain, Mild, Fever >38C(100.5F), Starting on Mon03/01/24 at 2358, Until Mon03/06/24 at 1637, Maximum of 4 grams (4000 mg) per day. 1349 (Given - Provider: Lula Garnica RN) 2108 (Given - Provider: Arleth Cole RN) 0925 (Given - Provider: Davida Sanford LPN) loperamide (Imodium) cap 2 mg 2 mg, Oral, Q4H PRN Diarrhea, Starting on 03/02/24 at 1543, Until Mon03/06/24 at 1637, Maximum of 16 mg per day recommended 1720 (Given - Provider: Lula Garnica RN) melatonin tab 3 mg 3 mg, Oral, HS PRN Insomnia, Starting on Mon03/01/24 at 2358, Until Mon03/06/24 at 1637 morphine sulfate inj 2 mg 2 mg, IV Push, Q3H PRN Pain, Severe, Starting on 03/02/24 at 0533, Until Mon03/06/24 at 1637 0851 (Given - Provider: Soumya Sanders RN) ondansetron (Zofran) inj 4 mg 4 mg, IV Push, Q6H PRN Nausea, Starting on Mon03/01/24 at 2358, Until Mon03/06/24 at 1637 0844 (Given - Provider: Soumya Sanders RN) sodium chloride 0.9 % flush/inj 3 mL 3 mL, IV Push, PRN Other, Line Patency, Starting on Mon03/01/24 at 2357, Until Mon03/06/24 at 1637, Do not flush if lock, PICC, or central line not in place, IV infusing or unable to flush trimethobenzamide (Tigan) inj 100 mg 100 mg, Intramuscular, QID PRN Nausea, Vomiting, Nausea/vomting unrelieved by zofran, Starting on 03/02/24 at 0533, Until Mon03/06/24 at 1637 0401 (Given - Provider: Bladimir Vance, DUSTY)1832 (Given - Provider: Kate Camargo RN) documented in this encounter Additional Health Concerns Infection Onset Date Last Indicated Resolved Time Respiratory Rule-Out 03/01/2024 03/01/2024 024 7:08 PM EDT COVID-19 Rule-Out 03/01/2024 03/01/2024 03/01/2024 7:08 PM EDT Gastrointestinal Rule-Out 03/02/2024 03/03/2024 9:35 AM EDT C. difficile Rule-Out 03/02/2024 03/02/20242023 10:04 AM EDT documented as of this encounter [...] and were consensually agreed upon. Care Teams Catering Convention Services Manager Relationship Specialty Start Date End Date Laura Tse MD [address] [place] [address] PCP - General Family Medicine 10/20/16 documented as of this encounter
--- OUTSIDE RECORDS SUMMARY | 2024-03-23 03:16 | External Medical Summary ---
Author Name Unknown Address Unknown Organization [id number]:[facility] [place] [address] [facility] [address] Laboratory Report Ordering Provider Test Date Status JULIANNELAITH 03/03/2024 10:21:53 Final Observation Date Value Abnormality Reference (Units ) Status Campylobacter sp DNA.diarrheagenic [Presence] in Stool by MINDI with probe detection 03/03/2024 10:21:53 Negative Negative Final Salmonella sp rpoD gene [Presence] in Stool by MINDI with probe detection 03/03/2024 10:21:53 Negative Negative Final Shigella species+EIEC invasion plasmid antigen H ipaH gene [Presence] in Stool by MINDI with probe detection 03/03/2024 10:21:53 Negative Negative Final Vibrio sp DNA [Identifier] in Specimen by MINDI with probe detection 03/03/2024 10:21:53 Negative Negative Final Yersinia enterocolitica recN gene [Presence] in Stool by MINDI with probe detection 03/03/2024 10:21:53 Negative Negative Final Escherichia coli Stx1 toxin stx1 gene [Presence] in Stool by MINDI with probe detection 03/03/2024 10:21:53 Negative Negative Final Escherichia coli Stx2 toxin stx2 gene [Presence] in Stool by MINDI with probe detection 03/03/2024 10:21:53 Negative Negative Final Norovirus genogroups I and II RNA panel - Stool by MINDI with probe detection 03/03/2024 10:21:53 Negative Negative Final Rotavirus A RNA [Presence] in Stool by MINDI with probe detection 03/03/2024 10:21:53 Negative Negative Final Performing Location [facility] [place] [address] [facility] [address]
--- OUTSIDE RECORDS SUMMARY | 2024-03-23 03:16 | External Medical Summary ---
Author Name Unknown Address Unknown Organization [id number]:[facility] - [address] [place] [address] Laboratory Report Ordering Provider Test Date Status MINMAW 03/06/2024 06:50:00 Final Observation Date Value Abnormality Reference (Units ) Status BUN 03/06/2024 06:50:00 6 6-20 (mg/dL) Final Creatinine 03/06/2024 06:50:00 0.8 0.5-1.0 (mg/dL) Final Glomerular filtration rate/1.73 sq M.predicted [Volume Rate/Area] in Serum, Plasma or Blood by Creatinine-based formula (CKD-EPI) 03/06/2024 06:50:00 >90 >=60 (mL/min) Final eGFR is calculated based on the CKD-EPI 2020 equation Sodium 03/06/2024 06:50:00 139 135-146 (m mol/L) Final Potassium 03/06/2024 06:50:00 3.5 3.5-5.1 (m mol/L) Final Cl 03/06/2024 06:50:00 110 Above high normal 98 -107 (mmol/L) Final CO2 03/06/2024 06:50:00 20 Below low normal 22- 32 (mmol/L) Final Anion gap 03/06/2024 06:50:00 9 7-15 (mmol /L) Final Glucose 03/06/2024 06:50:00 105 70-120 (mg /dL) Final Calcium 03/06/2024 06:50:00 8.4 8.4-10.2 ( mg/dL) Final Performing Location [facility] - [address] [place] [address]
--- OUTSIDE RECORDS SUMMARY | 2024-03-23 03:16 | External Medical Summary ---
Author Name Unknown Address Unknown Organization K1F:[facility] - [address] [place] [address] Laboratory Report Ordering Provider Test Date Status MIN,MAW 03/06/2024 06:50:00 Final Observation Date Value Abnormality Reference (Units ) Status Phosphate 03/06/2024 06:50:00 2.7 2.5-4.8 (m g/dL) Final Performing Location [facility] - [address] [place] [address]
--- OUTSIDE RECORDS SUMMARY | 2024-03-23 03:17 | External Medical Summary | Continuity of Care Document ---
Author Name Unknown Organization [facility] Address [address], [place] [address] Phone [phone] Problems Active Problems Provider Date Moderate recurrent major depression Laura dumont MD, PhD Onset: 10/23/2018 Attention deficit hyperactiv ity disorder, predominantly inattentive type Laura Tse MD, PhD Onset: 10/23/2018 Generalized anxiety disorder Laura Tse MD , PhD Onset: 10/23/2018 Atopic dermatitis Laura Tse MD, PhD Onset : 10/23/2018 Hypothyroidism Laura Tse MD, PhD Onset: 10/23/2018 Fibromyalgia Laura Tse MD, PhD Onset: 10/23/2018 Chronic constipation Koki Whitten PA-C Onset: 01/13/2022 Insomnia disorder related to another mental disorder Koki Whitten PA-C Onset: 11/01/2023 Social History Type Date Description Comments Sex Unknown Tobacco Use Reviewed: 02/12/24 Never Smoked Cigarette s Tobacco Use Reviewed: 02/12/24 Never Smoked Cigars Tobacco Use Reviewed: 02/12/24 Never Smoked A Pipe Smoking Status Reviewed: 02/12/24 Never Smoked A Pipe Smokeless Tobacco 02/12/2024 Never Used Smokeless To bacco ETOH Use Rarely consumes alcohol Recreational Drug Use Denies Drug Use Allergies and adverse reactions Description No Known Drug Allergies Medications Active Medications SIG Qnty Indications Order ing Provider Date Tums E-X [id number] Chewtabs 2 tabs daily Unknown 12/31/2023 Potassium Chloride VN42Htu Tablets ER 2 tabs in the Am and 2 tabs at bedtime Unknown 12/31/2023 Qytdrtb08ji Tablets 1 tablet by mouth three times a day. ongoing therapy. 90tabs F90.0 Laura Tse MD, PhD 11/01/2023 Levothyroxine Dutdxb29ufc Tablets 1 by mouth daily on an empty stomach. 30tabs Laura Tse MD, PhD 09/10/[address] 1 by mouth daily. Take on empty stomach 30 minutes prior to eating. 30caps K21.9 Laura Tse MD, PhD 09/06/2023 Desvenlafaxine Succinate FS824ql Tablets ER 24HR take one tablet by mouth every day with food 30tabs F41.1 Laura Tse MD, PhD 01/31/2023 Prochlorperazine Odnblzj3to Tablets 1 by mouth every 8 hours as needed for nausea. 10tabs Laura Tse MD, PhD 01/12/2023 Vitamin D (Ergocalciferol)1.25mg (11610 Ut) Capsules Take One Capsule By Mouth Once Weekly 12caps Laura Tse MD, PhD 01/12/2023 Ovsgqp-[id number] Tablets 1 by mouth daily. 90tabs Laura Tse MD, PhD 01/12/2023 Ykgeecnsph930om Capsules take 1 capsule by mouth 2 hours before bedtime. 30caps G25.81 Laura Tse MD, PhD 01/09/2023 Quetiapine Ytxlgevv851ks Tablets take one (1) tablet by mouth at bedtime 30tabs Laura Tse MD, PhD 10/07/2020 Sdlnmrw131awt Capsules take 1 capsule by mouth daily 90caps K59.00 Laura Tse MD, PhD 09/08/2020 3ML Luer Lock Safety Syringes/3ML/25G X 1"25G X 1" 3 ML Misc use to administer b12 12units Laura Tse MD, PhD 01/30/2020 Hdkuvqxgqe8yl Tablets 1 by mouth 2 times a day. 60tabs Riccardo Nickerson, DO Vitamin [id number] Tablets ER 1 by mouth every day Unknown Loperamide HCL2mg Tablets take one pill every 6 hours as needed diarrhea Unknown History Medications Gfizjkvy785vs Capsules 1 by mouth twice a day x 5 days with food 10caps R30.0 Laura Tse MD, PhD 11/01/2023 - 11/06/2023 Vephlef1eb Tablets 1 by mouth at bedtime. 30tabs F51.05 Laura Tse MD, PhD 11/01/2023 - 11/09/2023 Rexulti0.5mg Tablets 1 by mouth daily. 30tabs F33.1 Laura Tse MD, PhD 11/01/2023 - 12/14/2023 Focalin2.5mg Tablets 1 by mouth twice daily. Initial therapy. 14tabs F90.0 Laura Tse MD, PhD 09/06/2023 - 09/14/2023 Buspirone IWR96dy Tablets 1 by mouth twice a day 60tabs Laura Tse MD, PhD 09/06/2023 - 11/01/2023 Medications Administered in Office Medication SIG Qnty Indications Ordering Provider Date Injection Methylprednisolone Acetate 20 MGInjection ROLAN Saldivar 06/20/2022 Rocephin Inj 250 MGInjection Janelle Whitten PA-C 10/07/2019 Injection Methylprednisolone Acetate 20 MGInjection Laura east MD, PhD 06/13/2018 Injection Methylprednisolone Acetate 40 MGInjection Laura east MD, PhD 08/01/2017 Injection Vitamin B-12 Up To 1000 mcgInjection Laura moody MD, PhD 07/20/2017 Injection Vitamin B-12 Up To 1000 mcgInjection Laura moody MD, PhD 04/26/2017 Injection Vitamin B-12 Up To 1000 mcgInjection Laura omody MD, PhD 10/14/2016 Injection Methylprednisolone Acetate 20 MGInjection Laura east MD, PhD 10/14/2016 Injection Methylprednisolone Acetate 20 MGInjection Benji Juarez 09/21/2016 Injection Vitamin B-12 Up To 1000 mcgInjection Laura moody MD, PhD 09/13/2016 Injection Methylprednisolone Acetate 40 MGInjection Laura east MD, PhD 09/13/2016 Injection Methylprednisolone Acetate 20 MGInjection Scout Staples PA-C 08/26/2016 Injection Methylprednisolone Acetate 40 MGInjection Laura east MD, PhD 08/10/2016 Injection Vitamin B-12 Up To 1000 mcgInjection Laura moody MD, PhD 07/06/2016 Injection Vitamin B-12 Up To 1000 mcgInjection Laura moody MD, PhD 06/10/2016 Injection Vitamin B-12 Up To 1000 mcgInjection Riccardo Nickerson, DO 04/04 Injection Vitamin B-12 Up To 1000 mcgInjection Laura moody MD, PhD 04/05/2016 Injection Vitamin B-12 Up To 1000 mcgInjection Laura moody MD, PhD 03/22/2016 Injection Vitamin B-12 Up To 1000 mcgInjection Riccardo Nickerson, DO 03/04 Injection Methylprednisolone Acetate 20 MGInjection Laura east MD, PhD 01/07/2016 Injection Methylprednisolone Acetate 20 MGInjection Riccardo Nickerson, DO 12/14/2015 Injection Methylprednisolone Acetate 20 MGInjection ROLAN Saldivar 08/08/2014 Injection Methylprednisolone Acetate 20 MGInjection ROLAN Saldivar 07/11/2014 Injection Methylprednisolone Acetate 20 MGInjection Levi Petty JR, DO 07/08/2014 Immunizations CPT Code Status Date Vaccine Reaction Lot # [id number] Given 01/13/2021 TB Intradermal Test 0 mm - negative, read @ 4:32pm [id number] 47312 Given 04/17/2019 TB Intradermal Test 0.0MM read by Salvador Bonilla LPN at 11:41AM [id number] 51928 Given 08/04/2015 Tdap (Tetanus, diphtheria & acel. pertussis) Adacel or Boostrix 39103 Given 09/02/2014 TB Intradermal Test 0 mm reaction. Negative read by RF on 09/05/14 at 11:36am. [id number] 23889 Given 06/20/2007 Tdap (Tetanus, diphtheria & acel. pertussis) Adacel or Boostrix 57053 Given 01/24/2005 Td (Tetanus & D iphtheria) Tenivac 48275 Refused 09/06/2023 Sarscov2 Vaccin e 50 mcg/0.5 ML For Im Use 12 Yrs And Older 40621 Refused 04/11/2022 Influenza Virus Vaccine, Quadrivalent, Split Virus, Im Use 6-35 46221 Refused 09/09/2021 Influenza Virus Vaccine, Quadrivalent (Cciiv4), Derived From Cell 65433 Refused 09/09/2021 Moderna Sars-Co v-2 (Cov-19) vacc,100 mcg/ 0.5 mL 12Y+EMR Doc Only 97454 Refused 05/27/2019 Influenza Virus Vaccine, Quadrivalent, Im Use 19842 Refused 05/31/2018 Influenza Virus Vaccine, Quadrivalent, Im Use 94250 Refused 08/18/2017 Tdap (Tetanus, diphtheria & acel. pertussis) Adacel or Boostrix 11641 Refused 07/20/2017 Influenza Virus Vaccine, Quadrivalent, Im Use 22710 Refused 07/06/2016 Influenza Virus Vaccine, Quadrivalent, Im Use 38275 Refused 10/06/2015 Influenza Virus Vaccine, Quadrivalent, Im Use 38142 Refused 09/09/2014 Influenza Virus Vaccine, Quadrivalent, Im Use Vital Signs Date Vital Result Comment 02/12/2024 2:40pm BP Systolic 110 mmHg BP Diastolic 70 mmHg Body Temperature 97.9 F Heart Rate 76 /min Respiratory Rate 16 /min Weight 130.00 lb Weight 58.968 kg 11/09/2023 6:47pm BP Systolic 110 mmHg BP Diastolic 60 mmHg Body Temperature 97.7 F Heart Rate 78 /min Respiratory Rate 16 /min Results Test Acquired Date Facility Test Result H/L Range N ote Prescribed Drugs, Medmatch(R) 02/12/[address] [email or web address] [place] [address] [phone] medMATCH Summary (SEE NOTE) 1 Prescribed Drug 1 Clonazepam Prescribed Drug 2 Ritalin(TM) Prescribed Drug 3 DNR Normal Prescribed Drug 4 DNR Normal Prescribed Drug 5 DNR Normal Prescribed Drug 6 DNR Normal Prescribed Drug 7 DNR Normal Prescribed Drug 8 DNR Normal Prescribed Drug 9 DNR Normal Prescribed Drug 10 DNR Normal Drug Monitoring Template 02/12/[address] [email or web address] [place] [address] [phone] Notes and Comments (SEE NOTE) 2 Patient Historical Report DNR Normal Laboratory test finding 02/12/[address] [email or web address] [place] [address] [phone] Enhanced PDF Report [id number] SEE IMAGE Test Authorization 02/12/[address] [email or web address] [place] [address] [phone] Test Name: DRUG MONITOR,ME T <SEE NOTE> 3 Test Code: 86117ZI Client Contact: PATRICIA BARROW Report Always Message Signature (SEE NOTE) 4 Comment (SEE NOTE) 5 Drug Monitor, Methylphenid Metab QN Ur 02/12/[address] [email or web address] [place] [address] [phone] Ritalinic Acid NEGATIVE ng/mL Normal <100 medMATCH Ritalinic Acid INCONSISTENT Abnormal Ritalinic Acid Comments (SEE NOTE) 6 BMP 02/12/2024 [facility] [address] [place] [address] [phone] Glucose 93 mg/dL 70-110 BUN 17 mg/dL 6-25 Creatinine 0.9 mg/dL 0.5-1.2 Sodium 139 mEq/L 135-145 Potassium 3.5 mEq/L 3.5-5.0 Chloride 99 mEq/L 95-107 Co-2 30 mEq/L 24-31 Calcium 10.2 mg/dL 8.5-10.6 GFR 71 ML/MIN/1.73SQM >60 Laboratory test finding 02/12/2024 [facility] [address] [place] [address] [phone] Magnesium 2.0 mg/dL 1.7-2.8 Drug Monitor, Panel 1 W/Conf Urine 02/12/[address] [email or web address] [place] [address] [phone] Amphetamines NEGATIVE ng/mL Normal <500 [facility]MATCH Amphetamines DNR Normal Amphetamine DNR ng/mL Normal <250 [facility] Amphetamine DNR Normal Methamphetamine DNR ng/mL Normal <250 [facility]MATCH Methamphetamine DNR Normal Amphetamines Comments DNR Normal Barbiturates NEGATIVE ng/mL Normal <300 [facility]MATCH Barbiturates DNR Normal Amobarbital DNR ng/mL Normal <100 [facility] Amobarbital DNR Normal Butalbital DNR ng/mL Normal <100 [facility]MATCH Butalbital DNR Normal Pentobarbital DNR ng/mL Normal <100 [facility]MATCH Pentobarbital DNR Normal Phenobarbital DNR ng/mL Normal <100 [facility]MATCH Phenobarbital DNR Normal Secobarbital DNR ng/mL Normal <100 [facility]MATCH Secobarbital DNR Normal Barbiturates Comments DNR Normal Benzodiazepines POSITIVE ng/mL Abnormal <100 [facility]MATCH Benzodiazepines DNR Normal Alphahydroxyalprazolam NEGATIVE ng/mL Normal <25 medMATCH aOH alprazolam DNR Normal Alphahydroxymidazolam NEGATIVE ng/mL Normal <50 medMATCH aOH midazolam DNR Normal Alphahydroxytriazolam NEGATIVE ng/mL Normal <50 medMATCH aOH triazolam DNR Normal Aminoclonazepam 4586 ng/mL High <25 medMATCH Aminoclonazepam CONSISTENT Normal Hydroxyethylflurazepam NEGATIVE ng/mL Normal <50 medMATCH Oh,Et flurazepam DNR Normal Lorazepam NEGATIVE ng/mL Normal <50 [facility]MATCH Lorazepam DNR Normal Nordiazepam NEGATIVE ng/mL Normal <50 [facility]MATCH Nordiazepam DNR Normal Oxazepam NEGATIVE ng/mL Normal <50 [facility]MATCH Oxazepam DNR Normal Temazepam NEGATIVE ng/mL Normal <50 [facility]MATCH Temazepam DNR Normal Benzodiazepines Comments (SEE NOTE) 7 Cocaine Metabolite NEGATIVE ng/mL Normal <150 [facility]MATCH Cocaine Metab DNR Normal Benzoylecgonine DNR ng/mL Normal <100 [facility]MATCH Benzoylecgonine DNR Normal Cocaine Comments DNR Normal Marijuana Metabolite NEGATIVE ng/mL Normal <20 [facility]MATCH Marijuana Metab DNR Normal Marijuana Metabolite DNR ng/mL Normal <5 [facility]MATCH Marijuana Metab DNR Normal Marijuana Comments DNR Normal Methadone Metabolite NEGATIVE ng/mL Normal <100 [facility]MATCH Methadone Metab DNR Normal Eddp DNR ng/mL Normal <100 medMATCH Eddp DNR Normal Methadone DNR ng/mL Normal <100 [facility]MATCH Methadone DNR Normal Methadone Comments DNR Normal Opiates NEGATIVE ng/mL Normal <100 [facility]MATCH Opiates DNR Normal Codeine DNR ng/mL Normal <50 [facility]MATCH Codeine DNR Normal Hydrocodone DNR ng/mL Normal <50 [facility] Hydrocodone DNR Normal Hydromorphone DNR ng/mL Normal <50 [facility] Hydromorphone DNR Normal Morphine DNR ng/mL Normal <50 [facility]MATCH Morphine DNR Normal Norhydrocodone DNR ng/mL Normal <50 [facility]MATCH Norhydrocodone DNR Normal Opiates Comments DNR Normal Oxycodone NEGATIVE ng/mL Normal <100 [facility] Oxycodone DNR Normal Noroxycodone DNR ng/mL Normal <50 [facility] Noroxycodone DNR Normal Oxycodone DNR ng/mL Normal <50 [facility] Oxycodone DNR Normal Oxymorphone DNR ng/mL Normal <50 [facility] Oxymorphone DNR Normal Oxycodone Comments DNR Normal Phencyclidine NEGATIVE ng/mL Normal <25 [facility]MATCH Phencyclidine DNR Normal Phencyclidine DNR ng/mL Normal <25 [facility]MATCH Phencyclidine DNR Normal Phencyclidine Comments DNR Normal Creatinine >300.0 mg/dL Normal > or = 20.0 Specific Look[place] DNR Normal > or = 1.003 pH 5.4 Normal 4.5-9.0 Oxidant NEGATIVE g /mL Normal <200 Abnormal Specimen Validity Test: DNR Normal BMP 11/16/2023 [facility] [address] [place], [place] [id number] [phone] Glucose 119 mg/dL High 70-110 BUN 14 mg/dL 6-25 Creatinine 0.8 mg/dL 0.5-1.2 Sodium 140 mEq/L 135-145 Potassium 3.9 mEq/L 3.5-5.0 Chloride 101 mEq/L 95-107 Co-2 24 mEq/L 24-31 Calcium 9.6 mg/dL 8.5-10.6 GFR 82 ML/MIN/1.73SQM >60 Comp. Met 11/09/2023 [facility] [address] [place], [place] [id number] [phone] Glucose 113 mg/dL High 70-110 BUN 14 mg/dL 6-25 Creatinine 0.7 mg/dL 0.5-1.2 Sodium 142 mEq/L 135-145 Potassium 3.3 mEq/L Low 3.5-5.0 Chloride 103 mEq/L 95-107 Co-2 26 mEq/L 24-31 Alk Phos 104 IU/L 43-122 Alt(SGPT) 11 IU/L 10-40 Ast(Sgot) 15 IU/L 3-42 T.Bilirubin 0.4 mg/dL 0.1-1.3 Calcium 9.6 mg/dL 8.5-10.6 Tot.Protein 7.2 g/dL 5.8-8.0 Albumin 4.5 g/dL 3.0-5.2 Globulin 2.7 g/dL 2.0-3.4 GFR 95 ML/MIN/1.73SQM >60 CBC W/Diff 11/09/2023 [facility] [address] [place] [address] [phone] WBC 8.2 10^3/M3 3.1-9.2 RBC 4.64 10^6/M3 3.70-5.50 HGB 14.7 GR/DL 11.5-16.1 HCT 42.7 % 34.5-47.8 MCV 92.1 CUMICR 82.6-95.8 MCH 31.8 PICOGR 27.9-32.9 MCHC 34.5 % 32.6-35.4 RDW 13.6 % 11.4-14.6 PLT 530 10^3/M3 High 140-350 MPV 7.5 CUMICR 7.0-10.6 %Neut 51.3 % 40.0-75.0 %Lymph 38.4 % 17.0-45.0 %[place] 7.7 % 1.0-11.0 %Eos 2.0 % 0.0-6.0 %Baso 0.6 % 0.0-2.0 #Neut 4.2 10^3/M3 1.5-8.0 #Lymph 3.1 10^3/M3 0.8-3.2 #[place] 0.6 10^3/M3 0.0-0.8 #Eos 0.2 10^3/m3 0.0-0.4 #Baso 0.0 10^3/m3 0.0-0.2 Hba1c 11/09/2023 [facility] [address] [place] [address] [phone] A1c 5.40 % 4.70-6.50 8 Urinalysis 11/01/2023 [facility] [address] [place] [address] [phone] Color LIGHT-ORANGE Abnormal Appearance TURBID Abnormal Clear Spec.Grav. 1.030 High 1.005-1.025 Leukocytes LARGE Abnormal Negative Nitrite POSITIVE Abnormal Negative PH 6.0 6.0-7.5 Protein SMALL Abnormal Negative Urine Glucose NEGATIVE Negative Ketone NEGATIVE Negative Urobilinogen NORMAL E.U./DL Normal Bilirubin NEGATIVE Negative Blood NEGATIVE Negative WBC-U TNTC /HPF Abnormal 0-5/HPF RBC-U 0-2 /HPF 0-5/HPF Bacteria TRACE None Seen Hyaline Casts 21-50 /LPF Abnormal None Seen Squamous 11-15 /HPF Abnormal 0-5/HPF Caox Crystal 1+ /HPF Abnormal Not Present Urine Culture 11/01/2023 [facility] [address] [place] [address] [phone] Urine Source URINE Total Col Count >100,000 COL/CC Urine Isolate#1 11/01/2023 [facility] [address] [place] [address] [phone] Isolate #1 Escherichia coli 9 Amox/K Clav <=8/4 S Ampicillin <=8 S Aztreonam <=4 S Cefazolin <=2 S Cefepime <=2 S Ceftriaxone <=1 S Ciprofloxacin <=0.25 S Gentamicin <=2 S Nitrofurantoin <=32 S Tetracycline <=4 S Tobramycin <=2 S Trimeth/Sulfa <=2/38 S Meropenem <=1 S Laboratory test finding 11/01/2023 [facility] [address] [place] [address] [phone] TSH 0.96 uIU/mL 0.50-6.00 FRT4 0.79 ng/dL 0.75-1.54 Laboratory test finding 09/06/2023 [facility] [address] [place], [place] [id number] [phone] FRT4 0.51 ng/dL Low 0.75-1.54 TSH 1.46 uIU/mL 0.50-6.00 Vitd-25Oh 19 ng/mL Low 30-100 VB12 169 pg/mL Low 230-1050 CBC W/Diff 09/06/2023 [facility] [address] [place] [address] [phone] WBC 6.8 10^3/M3 3.1-9.2 RBC 4.19 10^6/M3 3.70-5.50 HGB 13.1 GR/DL 11.5-16.1 HCT 38.2 % 34.5-47.8 MCV 91.0 CUMICR 82.6-95.8 MCH 31.3 PICOGR 27.9-32.9 MCHC 34.4 % 32.6-35.4 RDW 13.7 % 11.4-14.6 PLT 464 10^3/M3 High 140-350 MPV 7.1 CUMICR 7.0-10.6 %Neut 44.1 % 40.0-75.0 %Lymph 44.7 % 17.0-45.0 %[place] 7.8 % 1.0-11.0 %Eos 2.3 % 0.0-6.0 %Baso 1.1 % 0.0-2.0 #Neut 3.0 10^3/M3 1.5-8.0 #Lymph 3.1 10^3/M3 0.8-3.2 #[place] 0.5 10^3/M3 0.0-0.8 #Eos 0.2 10^3/m3 0.0-0.4 #Baso 0.1 10^3/m3 0.0-0.2 Comp. Met 09/06/2023 [facility] [address] [place] [address] [phone] Glucose 90 mg/dL 70-110 BUN 12 mg/dL 6-25 Creatinine 0.7 mg/dL 0.5-1.2 Sodium 142 mEq/L 135-145 Potassium 4.6 mEq/L 3.5-5.0 Chloride 102 mEq/L 95-107 Co-2 30 mEq/L 24-31 Alk Phos 85 IU/L 43-122 Alt(SGPT) 13 IU/L 10-40 Ast(Sgot) 15 IU/L 3-42 T.Bilirubin 0.3 mg/dL 0.1-1.3 Calcium 9.6 mg/dL 8.5-10.6 Tot.Protein 6.7 g/dL 5.8-8.0 Albumin 4.4 g/dL 3.0-5.2 Globulin 2.3 g/dL 2.0-3.4 GFR 95 ML/MIN/1.73SQM >60 1 Prescribed Prescribe d Not Prescribed Consistent Inconsistent Inconsistent Clonazepam Ritalin(TM) 2 This drug testing is for medical treatment only. Analysis was performed as non-forensic testing and these results should be used only by healthcare providers to render diagnosis or treatment, or to monitor progress of medical conditions. Benzodiazepines Notes: Aminoclonazepam detected is consistent with the use of the drug Clonazepam. LDT Notes: Confirmation tests were developed and their analytical performance characteristics have been determined by [facility]. It has not been cleared or approved by the FDA. This assay has been validated pursuant to the CLIA regulations and is used for clinical purposes. [employer](R) enables providers to identify if drug use is consistent or inconsistent with a corresponding prescribed medication(s) list. Healthcare Providers needing Interpretation assistance, please contact us at [phone] ( ) M-F, 8am to 10pm EST 3 DRUG MONITOR,MARCOS BULLARD 4 The laboratory testi ng on this patient was verbally requested or confirmed by the ordering physician or his or her authorized hvac sales representative after contact with an employee of [facility]. Federal regulations require that we maintain on file written authorization for all laboratory testing. Accordingly we are asking that the ordering physician or his or her authorized hvac sales representative sign a copy of this report and promptly return it to the client associate. Signature: 5 Please fax this sign ed form to [phone]. If you are located in [facility], this form must be returned within 48 hours. Please do not attempt to return this document by other methods. Documents will not be viewed by a hvac sales representative. Please do not use this fax number for other service requests. 6 See LDT Notes 7 See Benzodiazepines Notes, LDT Notes 8 MEAN GLUCOSE IN mg/d L/A1c% POOR CONTROL FAIR CONTROL GOOD CONTROL EXCELLENT CONTROL 360-14 210-9 180-8 120-6 330-13 150-7 90-5 300-12 270-11 240-10 9 Escherichia coli Procedures Date Code Description Status 02/12/2024 G2211 Continuation of care e/m vis it add on Completed 02/12/2024 21606 Venipuncture Routine Complet ed 02/12/2024 1111F D/C Medications Reconciled W/Current Medications In Outpt MR Completed 11/16/2023 27660 Venipuncture Routine Complet ed 11/09/2023 G2211 Continuation of care e/m vis it add on Completed 11/09/2023 91453 Venipuncture Routine Complet ed 11/01/2023 G2211 Continuation of care e/m vis it add on Completed 11/01/2023 81385 Venipuncture Routine Complet ed 09/06/2023 G9920 Scrning Perf And Negative Co mpleted 09/06/2023 G2211 Continuation of care e/m vis it add on Completed 09/06/2023 77533 Venipuncture Routine Complet ed 03/02/2023 [id number] Colonoscopy Completed 04/22/2020 [id number] Mammogram Completed Medical Devices Description No Information Available Encounters Type Date Location Provider Dx Diagnosis Office Visit 02/12/2024 2:30p [facility] Koki Whitten PA-C R19.7 Diarrhea, unspecified R11.0 Nausea 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, GB & bile duct E83.51 Hypocalcemia E87.6 Hypokalemia Office Visit 11/09/2023 7:15p [facility] H53.8 Other visual disturbances 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, predom inattentive type R11.2 Nausea with vomiting , unspecified K21.9 Gastro-esophageal re flux disease without esophagitis R10.11 Right upper quadrant pain R07.89 Other chest pain F41.1 Generalized anxiety disorder Office Visit 11/01/2023 2:30p [facility] PA-C F41.1 Generalized anxiety disorder F33.1 Major depressive dis order, recurrent, moderate 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, 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 disorder E03.9 Hypothyroidism, unsp ecified R30.0 Dysuria D75.838 Other thrombocytosis Office Visit 09/06/2023 10:00a [facility] Kokisonali PhanPAVEL starr F41.1 Generalized anxiety disorder F33.1 Major depressive dis order, recurrent, moderate 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, predom inattentive type E03.9 Hypothyroidism, unsp ecified E55.9 Vitamin D deficiency , unspecified E53.9 Vitamin B deficiency , unspecified K21.9 Gastro-esophageal re flux disease without esophagitis G47.00 Insomnia, unspecifie d Z60.8 Other problems relat ed to social environment 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 Assessments Date Code Description Provider 02/12/2024 R19.7 Diarrhea, unspecified Mona Whitten PA-C 02/12/2024 R11.0 Nausea Koki Whitten PA-C 02/12/2024 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, gallbladder and bile ducts Koki Whitten PA-C 02/12/2024 E83.51 Hypocalcemia Koki Whitten PA-C 02/12/2024 E87.6 Hypokalemia Koki Whitten PA-C 11/16/2023 F51.05 Insomnia due to other mental disorder Levi Petty JR, DO 11/16/2023 F51.05 Insomnia due to other mental disorder Lab - [facility] 11/16/2023 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, predominantly inattentive type Levi Petty JR, DO 11/16/2023 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, predominantly inattentive type Lab - [facility] 11/09/2023 H53.8 Other visual disturbances Me scot Whitten PA-C 11/09/2023 F51.05 Insomnia due to other mental disorder Koki Whitten PA-C 11/09/2023 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, predominantly inat Koki Whitten PA-C 11/09/2023 R11.2 Nausea with vomiting, unspec ified Koki St[facility], [facility] 11/09/2023 K21.9 Gastro-esophagea l reflux disease without esophagitis Koki [facility], [facility] 11/09/2023 R10.11 Right upper quadrant pain Me scot St[facility], [facility] 11/09/2023 R07.89 Other chest pain Koki Sto ner, [facility] 11/09/2023 F41.1 Generalized anxiety disorder Koki [facility], [facility] 11/01/2023 F41.1 Generalized anxiety disorder Koki [facility], [facility] 11/01/2023 F33.1 Major depressive disorder, recurrent, moderate Koki [place], [facility] 11/01/2023 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, predominantly inat Koki [facility], [facility] 11/01/2023 F51.05 Insomnia due to other mental disorder Koki [place], [facility] 11/01/2023 E03.9 Hypothyroidism, unspecified Koki [facility], [facility] 11/01/2023 R30.0 Dysuria Koki [facility], [facility] 11/01/2023 D75.838 Other thrombocytosis Koki [facility], [facility] 09/06/2023 F41.1 Generalized anxiety disorder Koki [place], [facility] 09/06/2023 F33.1 Major depressive disorder, recurrent, moderate Koki [place], [facility] 09/06/2023 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, predominantly inat Koki [facility], [facility] 09/06/2023 E03.9 Hypothyroidism, unspecified Koki [facility], [facility] 09/06/2023 E55.9 Vitamin D deficiency, unspec ified Koki [place], [facility] 09/06/2023 E53.9 Vitamin B deficiency, unspec ified Koki [place], [facility] 09/06/2023 K21.9 Gastro-esophagea l reflux disease without esophagitis Koki [facility], [facility] 09/06/2023 G47.00 Insomnia, unspecified Mona e St[facility], [facility] 09/06/2023 Z60.8 Other problems r elated to social environment Koki [facility], [facility] 09/06/2023 Z79.899 Other terminal operator (current) ug therapy Koki Whitten PA-C Plan of Treatment 02/12/2024 - Koki Whitten PA-C* R19.7 Diarrhea, unspecified * R11.0 Nausea * D37.6 Neoplasm of uncertain behavior of liver, gallbladder and bile ducts* New Xrays:* MRI Liver W/O And W Contrast, Ordered: 02/12/24 * Follow up:* Liver MRI * E83.51 Hypocalcemia * E87.6 Hypokalemia Functional Status Description No Information Available Mental Status Description No Information Available Referrals Refer to Reason for Referral Status Appt Art e Hematology/Oncology [facility] Patient Declined 01/18/2024 [facility] [place] [address] [phone]
--- OUTSIDE RECORDS SUMMARY | 2024-03-23 03:17 | External Medical Summary ---
Author Name Unknown Address Unknown Organization K1F:LABORATORY [facility] - [place] [address] Laboratory Report Ordering Provider Test Date Status LUCIAN CLEMENTS 03/01/2024 21:09:45 Final Collect 1 HOUR Observation Date Value Abnormality Reference (Units ) Status Troponin T 03/01/2024 21:09:45 <6 <=14 (ng/ L) Final Performing Location [facility] - [address] [place] [address]
--- OUTSIDE RECORDS SUMMARY | 2024-03-23 03:17 | External Medical Summary ---
Author Name Unknown Address Unknown Organization K1F:LABORATORY [facility] - [address] [facility] [place] [address] Laboratory Report Ordering Provider Test Date Status LUCIAN CLEMENTS 03/01/2024 18:09:19 Final ADMITTED patient Observation Date Value Abnormality Reference (Units ) Status Adenovirus DNA [Presence] in Nasopharynx by MINDI with non-probe detection 03/01/2024 18:09:19 Negative Negative Final Human coronavirus 229E RNA [Presence] in Nasopharynx by MINDI with non-probe detection 03/01/2024 18:09:19 Negative Negative Final Human coronavirus HKU1 RNA [Presence] in Nasopharynx by MINDI with non-probe detection 03/01/2024 18:09:19 Negative Negative Final Human coronavirus NL63 RNA [Presence] in Nasopharynx by MINDI with non-probe detection 03/01/2024 18:09:19 Negative Negative Final Human coronavirus OC43 RNA [Presence] in Nasopharynx by MINDI with non-probe detection 03/01/2024 18:09:19 Negative Negative Final SARS-CoV-2 (COVID-19) RNA [Presence] in Nasopharynx by MINDI with non-probe detection 03/01/2024 18:09:19 Negative Negative Final Human metapneumovirus RNA [Presence] in Nasopharynx by MINDI with non-probe detection 03/01/2024 18:09:19 Negative Negative Final Rhinovirus+Enterovirus RNA [Presence] in Nasopharynx by MINDI with non-probe detection 03/01/2024 18:09:19 Negative Negative Final Influenza virus A RNA [Presence] in Nasopharynx by MINDI with non-probe detection 03/01/2024 18:09:19 Negative Negative Final Influenza virus B RNA [Presence] in Nasopharynx by MINDI with non-probe detection 03/01/2024 18:09:19 Negative Negative Final Parainfluenza virus 1 RNA [Presence] in Nasopharynx by MINDI with non-probe detection 03/01/2024 18:09:19 Negative Negative Final Parainfluenza virus 2 RNA [Presence] in Nasopharynx by MINDI with non-probe detection 03/01/2024 18:09:19 Negative Negative Final Parainfluenza virus 3 RNA [Presence] in Nasopharynx by MINDI with non-probe detection 03/01/2024 18:09:19 Negative Negative Final Parainfluenza virus 4 RNA [Presence] in Nasopharynx by MINDI with non-probe detection 03/01/2024 18:09:19 Negative Negative Final Respiratory syncytial virus RNA [Presence] in Nasopharynx by MINDI with non-probe detection 03/01/2024 18:09:19 Negative Negative Final Bordetella pertussis.pertussis toxin promoter region [Presence] in Nasopharynx by MINDI with non-probe detection 03/01/2024 18:09:19 Negative Negative Final Chlamydophila pneumoniae DNA [Presence] in Nasopharynx by MINDI with non-probe detection 03/01/2024 18:09:19 Negative Negative Final Mycoplasma pneumoniae DNA [Presence] in Nasopharynx by MINDI with non-probe detection 03/01/2024 18:09:19 Negative Negative Final Bordetella parapertussis GO0101 DNA [Presence] in Nasopharynx by MINDI with non-probe detection 03/01/2024 18:09:19 Negative Negative Final
The primers that detect Rhinovirus may cross react with some Enterorviruses. The validation of bronchial specimens, tracheal aspirates, and throats for this assay was developed and performance characteristics determined by [employer]. The validation of alternate specimen types has not been cleared or approved by the U.S. Food and Drug Administration (FDA). It has been determined that such clearance or approval is not necessary. [facility] - [address] [place], [place] [address]chago [facility] [address]
--- OUTSIDE RECORDS SUMMARY | 2024-03-23 03:17 | External Medical Summary ---
Author Name Unknown Address Unknown Organization K1F:LABORATORY [facility] - [address] [place] [address] Laboratory Report Ordering Provider Test Date Status LUCIAN CLEMENTS 03/01/2024 18:58:32 Final Observation Date Value Abnormality Reference (Units ) Status WBC, Total 03/01/2024 18:58:32 13.40 Above high normal 4.00-10.80 (K/uL) Final RBC 03/01/2024 18:58:32 5.64 3.85-5.15 (M/uL) Final Hemoglobin 03/01/2024 18:58:32 17.4 Above high normal 12.0-15.3 (g/dL) Final HCT 03/01/2024 18:58:32 51.4 Above high normal 36.0-45.2 (%) Final MCV 03/01/2024 18:58:32 91.1 81.5-97.5 (fL) Final MCH 03/01/2024 18:58:32 30.9 27.0-34.0 (pg) Final MCHC 03/01/2024 18:58:32 33.9 32.0-36.0 (g/dL) Final RDW 03/01/2024 18:58:32 12.3 11.5-15.5 (%) Final Platelets 03/01/2024 18:58:32 448 Above high normal 140-400 (K/uL) Final MPV 03/01/2024 18:58:32 8.9 6.6-11.1 (fL) Final Nucleated erythrocytes/100 leukocytes [Ratio] in Blood by Automated count 03/01/2024 18:58:32 0 <=0 (/100 WBCs) Final Performing Location LABORATORY [facility] - [address] [place] [address]
--- OUTSIDE RECORDS SUMMARY | 2024-03-23 03:17 | External Medical Summary ---
Author Name Unknown Address Unknown Organization C:[facility] [address] [place] [address] Laboratory Report Ordering Provider Test Date Status MAMI BOSS 02/12/2024 15:16 Final Observation Date Value Abnormality Reference (Units ) Status Glucose 02/13/2024 10:47 93 70-110 (MG/DL ) Final BUN 02/13/2024 10:47 17 6-25 (MG/DL) Final Creatinine 02/13/2024 10:47 0.9 0.5-1.2 (MG/ DL) Final Sodium 02/13/2024 10:47 139 135-145 (MEQ/ L) Final Potassium 02/13/2024 10:47 3.5 3.5-5.0 (MEQ/ L) Final Cl 02/13/2024 10:47 99 95-107 (MEQ/L ) Final CO2 02/13/2024 10:47 30 24-31 (MEQ/L) Final Calcium 02/13/2024 10:47 10.2 8.5-10.6 (MG/ DL) Final GFR (estimated) 02/13/2024 10:47 71 >60 (ML /MIN/1.73 SQM) Final Performing Location [facility] [address] [place] [address]
--- OUTSIDE RECORDS SUMMARY | 2024-03-23 03:17 | External Medical Summary ---
Author Name Unknown Address Unknown Organization K1F:LABORATORY [facility] - [address] [place] [address] Laboratory Report Ordering Provider Test Date Status THOM MAKI 01/28/2024 05:11:00 Final Observation Date Value Abnormality Reference (Units ) Status Magnesium 01/28/2024 05:11:00 1.9 1.5-2.6 (m g/dL) Final Performing Location LABORATORY [facility] - [address] [place] [address]
--- OUTSIDE RECORDS SUMMARY | 2024-03-23 03:17 | External Medical Summary ---
Author Name Unknown Address Unknown Organization K1F:LABORATORY [facility] - [address] [place] [address] Laboratory Report Ordering Provider Test Date Status URIDOMINICK Sandhu 03/01/2024 21:20:17 Final Observation Date Value Abnormality Reference (Units ) Status Color of Urine by Auto 03/01/2024 21:20:17 Yellow Light Yellow, Yellow, Dark Yellow Final Clarity, Urine 03/01/2024 21:20:17 Clear Clear Final Glucose [Mass/volume] in Urine by Automated test strip 03/01/2024 21:20:17 Negative Negative (mg/dL) Final Bilirubin.total [Presence] in Urine by Automated test strip 03/01/2024 21:20:17 Negative Negative Final Ketones [Mass/volume] in Urine by Automated test strip 03/01/2024 21:20:17 Negative Negative (mg/dL) Final Specific gravity, Urine 03/01/2024 21:20:17 1.027 1.003-1.030 Final Hemoglobin [Presence] in Urine by Automated test strip 03/01/2024 21:20:17 Negative Negative Final pH, Urine 03/01/2024 21:20:17 6.0 5.0-7.5 (Units) Final Protein [Mass/volume] in Urine by Automated test strip 03/01/2024 21:20:17 Trace Abnormal Negative (mg/dL) Final Urobilinogen [Mass/volume] in Urine by Automated test strip 03/01/2024 21:20:17 0.2 0.2, 1.0 (mg/dL) Final Nitrite [Presence] in Urine by Automated test strip 03/01/2024 21:20:17 Negative Negative Final Leukocyte esterase [Presence] in Urine by Automated test strip 03/01/2024 21:20:17 Negative Negative Final Annotation Comment 03/01/2024 21:20:17 Final Screen negative - Microscopi c not performed. Performing Location LABORATORY [facility] - [address] [place] [address]
--- OUTSIDE RECORDS SUMMARY | 2024-03-23 03:17 | External Medical Summary ---
Author Name Unknown Address Unknown Organization K1F:LABORATORY [facility] - [address] [place] [address] Laboratory Report Ordering Provider Test Date Status DOMINICK GREWAL 03/01/2024 21:20:17 Final Cutoff Concentrations:
Drug Level
Amphetamines 500 ng/mL
Benzodiazepines 100 ng/mL
Cannabinoids 50 ng/mL
Cocaine Metabolite 150 ng/mL
Fentanyl 1 ng/mL
Hydrocodone / Hydromorphone 300 ng/mL
Methadone Metabolite 100 ng/mL
Morphine / Codeine 300 ng/mL
Oxycodone / Oxymorphone 100 ng/mL

Screening results are presumptive and can only be used for medical purposes. Confirmatory testing is available upon request. Observation Date Value Abnormality Reference (Units ) Status Amphetamines, Urine screen 03/01/2024 21:20:17 Negative Negative Final Benzodiazepines, Urine screen 03/01/2024 21:20:17 Positive Abnormal Negative Final Cannabinoids, Urine screen 03/01/2024 21:20:17 Negative Negative Final Cocaine Metabolite, Urine screen 03/01/2024 21:20:17 Negative Negative Final fentaNYL [Presence] in Urine by Screen method 03/01/2024 21:20:17 Negative Negative Final HYDROcodone [Presence] in Urine by Screen method 03/01/2024 21:20:17 Negative Negative Final 7-Zzjqrjwzlq-0,5-Dimeth yl-3,3-Diphenylpyrrolid ine (EDDP) [Presence] in Urine 03/01/2024 21:20:17 Negative Negative Final Opiates, Urine screen 03/01/2024 21:20:17 Positive Abnormal Negative Final oxyCODONE [Presence] in Urine by Screen method 03/01/2024 21:20:17 Negative Negative Final Performing Location LABORATORY [facility] - [address] [place] [address]
--- OUTSIDE RECORDS SUMMARY | 2024-03-23 03:17 | External Medical Summary | Summary of Care ---
Author Name Unknown Organization [facility] Address [address] [place] [address] Phone [phone] Care Team Providers Care Solder Deposit Operator Name Role Phone Laura Tse MD Primary Care Provider + Reason for Referral * Precert (Within 10 days (routine)) - Pending Review Specialty Diagnoses / Procedures Referred By Contac t Referred To Contact Radiology Diagnoses Neoplasm of uncertain behavior of liver, gallbladder and bile ducts Procedures MRI LIVER W WO CONTRAST Koki Whitten PA-C [address] [place] [address] Referral ID Status Reason Start Date Expiration Date V isits Requested Visits Authorized [id number] Pending Review 02/26/[phone] Encounter Details Date Type Department Care Team (Late st Contact Info) Description 02/26/2024 Orders Only Radiology, [address] [address] Requisition, External Radiology [address] [place] [address] Neoplasm of uncertain behavior of liver, gallbladder and bile ducts* Allergies Active Allergy Reactions Criticality Noted Date Comments Erythromycin 01/09/2002 GI UPSET documented as of this encounter (statuses as of 02/26/2024) Medications Medication Sig Dispensed Refills Start Date End Date Status clonazePAM (KLONOPIN) 1 MG Tablet Take 1 Tablet by mouth in the morning and 1 Tablet before bedtime. 01/25/2019 Active Linzess 290 MCG Oral Capsule Take 1 Capsule by mouth daily before breakfast. 07/17/2020 Active QUEtiapine Fumarate 200 MG Oral Tablet (SEROquel) Take by mouth 1 Tablet before bedtime. 5 Tablet 01/20/2022 Active Desvenlafaxine Succinate ER 100 MG Oral Tablet Extended Release 24 Hour Take 1 Tablet by mouth in the morning. Active Vitron-C 65-125 MG Oral Tablet (Iron-Vitamin C 65-125 mg per tab) Take 1 Tablet by mouth in the morning. Active Methylphenidate HCl 20 MG Oral Tablet (Ritalin) Take 1 Tablet by mouth in the morning and 1 Tablet at noon and 1 Tablet in the evening. Active NexIUM 40 MG Oral Capsule Delayed Release Take 1 Capsule by mouth daily before breakfast. 09/06/2023 Active Cyanocobalamin 1000 MCG/ML Injection Solution (Cyanocobalamin) Inject 1,000 mcg into a large muscle every 30 days. 11/23/2023 Active Potassium Chloride ER 20 MEQ Oral Tablet Extended Release Take 2 Tablets by mouth in the morning and 2 Tablets before bedtime. 120 Tablet 12/31/2023 Active Calcium Carbonate Antacid 750 MG Oral Tablet Chewable (Tums E-X) Take 2 Tablets by mouth in the morning. 60 Tablet 12/31/2023 Active Ondansetron 4 MG Oral Tablet Disintegrating (Zofran) Place 1 Tablet on tongue every 8 hours as needed for Nausea or Vomiting. dissolve on tongue. 60 Tablet 12/31/2023 Active Vitamin B-12 1000 MCG Oral Tablet (Cyanocobalamin) Take 1 Tablet by mouth in the morning. 30 Tablet 01/28/2024 02/27/2024 Active Loperamide HCl 2 MG Oral Capsule (Imodium) Take 1 Capsule by mouth every 6 hours as needed for Diarrhea. 30 Capsule 01/28/2024 Active documented as of this encounter (statuses as of 02/26/2024) Active Problems Problem Noted Date Diagnosed Date Nausea, vomiting and diarrhea 01/27/2024 Hypocalcemia 12/30/2023 [...] as of this encounter (statuses as of 02/26/2024) Resolved Problems Problem Noted Date Diagnosed Date Resolved Date Encounter for supervision of other normal 02/27/2003 11/14/2003 Overview: ICD-10 update of inactive term Constipation 11/14/2003 Overview: ICD-10 update of inactive term URIN TRACT INFECTION NOS 08/2004 documented as of this encounter (statuses as of 02/26/2024) Immunizations Name Administration Dates Next Due TD, Preservative Free 01/24/2005 TDAP (age 10 and older)(Boostrix) 08/04/2015 TDAP, Age 7 and older, IM (Adacel) 06/20/2007 documented as of this encounter Social History Tobacco Use Types Packs/Day Years Used Date Smoking Tobacco: Never Smokeless Tobacco: Never Comments:DENIES Alcohol Use Standard Drinks/Week Comments No 0 (1 standard drink = 0.6 oz pur e alcohol) rare Sex and Gender Information Value Date Recorded Sex Assigned at Not on file Gender Identity Not on file Sexual Orientation Not on file Job Start Date Occupation Industry Not on file Not on file Not on file documented as of this encounter Functional Status Functional Status Response Date of Assess ment Are you deaf or do you have serious difficulty h earing? No 01/27/2024 Are you blind or do you have serious difficulty seeing, even when wearing glasses? No 01/27/2024 Do you have serious difficul ty walking or climbing stairs? (5 years old or older) No 01/27/2024 Do you have difficulty dress ing or bathing? (5 years old or older) No 01/27/2024 Because of a physical, menta l, or emotional condition, do you have difficulty doing errands alone such as visiting a doctor s office or shopping? (15 years old or older) No 01/27/20 Cognitive Status Response Date of Assessm ent Because of a physical, menta l, or emotional condition, do you have serious difficulty concentrating, remembering, or making decisions? (5 years old or older) No 01/27/2024 documented as of this encounter Plan of Treatment Upcoming Encounters Date Type Department Care Team (Latest Contact Info) Description 04/30/2024 9:27 AM EDT Hospital Encounter OR [facility], Operating Room, [facility] - 4th Floor [address] [place] [address] Bryce Reece, DO [address] [place] [address] 04/30/2024 9:27 AM EDT - 04/30/2024 10:14 AM EDT Surgery OR [facility], Operating Room, [facility] - 4th Floor [address] [place] [address] Bryce Reece DO [address] [place] [address] COLONOSCOPY FLEXIBLE PROXIMAL DIAGNOSTIC Scheduled Orders Name Type Priority Associated Diagnoses Orde r Schedule MRI LIVER W WO CONTRAST Medical Imaging Routine Neoplasm of uncertain behavior of liver, gallbladder and bile ducts Expected: 02/26/2024, Expires: 03/27/2025 Scheduled Procedures Name Priority Associated Diagnoses Date/Ti [...] ( season) 2023 Influenza Vaccine (FLU shot) (Season Ended) 2024 DTaP,Tdap,and Td Vaccines (3 - Td [...] Not on filedocumented as of this encounter Visit Diagnoses Diagnosis Neoplasm of uncertain behavior of liver, 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 * Full Code Date Activated Date Inactivated Comments 07/19/2021 3:53 PM 07/19/2021 4:00 PM This order reflects the patients wishes and were consensually agreed upon. Care Teams Solder Deposit Operator Relationship Specialty Start Date End Date Laura Tse MD [address] [facility] [place] [id number] PCP - General Family Medicine 10/20/16 documented as of this encounter
--- OUTSIDE RECORDS SUMMARY | 2024-03-23 03:17 | External Medical Summary | Summary of Care ---
Author Name Unknown Organization [facility] Address [address] [place] [address] Phone [phone] Care Team Providers Care Mental Health Clinician Name Role Phone Laura Tse MD Primary Care Provider + Reason for Visit * Reason Comments Nausea Vomiting Diarrhea Chest Pain Abdominal Pain * Auth/Cert Specialty Diagnoses / Procedures Referred By Contac t Referred To Contact [facility] [address] [place] [address] Phone: [phone] Emergency Medicine [address] [address] Referral ID Status Reason Start Date Expiration Date Visits Re quested Visits Authorized [id number] Encounter Details Date Type Department Care Team (Late st Contact Info) Description 01/26/2024 9:37 PM EDT - 01/28/2024 10:00 AM EDT Emergency 4B [facility] 4th Floor [address] [place] [address] Oscar Saavedra MD [address] [place] [address] Erika Umanzor MD [address] [place] [phone] [id number] Sybil Tripp DO [address] [facility] [place] [id number] Pt Handout (on AVS) Discharge Disposition: Home - Self Care Allergies Active Allergy Reactions Criticality Noted Date Comments Erythromycin 01/09/2002 GI UPSET documented as of this encounter (statuses as of 01/28/2024) Medications Medication Sig Dispensed Refills Start Date [...] as of this encounter (statuses as of 01/28/2024) Active Problems Problem Noted Date Diagnosed Date [...] as of this encounter (statuses as of 01/28/2024) Resolved Problems Problem Noted Date Diagnosed Date Resolved Date Encounter for supervision of other normal 02/27/2003 11/14/2003 Overview: ICD-10 update of inactive term Constipation 11/14/2003 Overview: ICD-10 update of inactive term URIN TRACT INFECTION NOS 08/2004 documented as of this encounter (statuses as of 01/28/2024) Immunizations Name Administration Dates Next Due TD, Preservative Free 01/24/2005 TDAP (age 10 and older)(Boostrix) 08/04/2015 TDAP (age 11 and older)(Adacel) 06/20/2007 documented as of this encounter Social [...] Sign Reading Time Taken Comments Blood Pressure 99/54 01/28/2024 7:00 AM EDT Pulse 80 01/28/2024 7:01 AM EDT Temperature 36.7 C (98.1 F) 01/28/2024 7:00 AM ED T Respiratory Rate 16 01/28/2024 7:00 AM EDT Oxygen Saturation 98% 01/28/2024 7:00 AM EDT Inhaled Oxygen Concentration - - Weight 62.7 kg (138 lb 4.8 oz) 01/28/2024 5:58 A M EDT Height 162.6 cm (5' 4") 01/27/2024 6:03 AM EDT Body Mass Index 23.74 01/27/2024 6:03 AM EDT documented in this encounter Functional [...] No 01/27/2024 documented as of this encounter Discharge Summaries * Sybil Tripp DO - 01/28/2024 9:22 AM EDT Images from the original note were not included. [facility] [id number] Admission Date: 01/26/2024 Discharge Date: 01/28/2024 RECOMMENDED TO DO FOR NEXT PROVIDER(S): Patient has appointment with GI for EGD and colonoscopy in April MMA and homocystine pending Follow-up potassium levels and diarrhea and vomiting REASON(S) FOR MEDICATION CHANGE(S): Loperamide as needed for diarrhea Continue scheduled potassium B12 supplement. 1000 mcg oral tablet daily DISPOSITION ON DISCHARGE: home Active Hospital Problems Diagnosis *Principal Diagnosis - Hypokalemia Nausea, vomiting and diarrhea Esophageal reflux Resolved Hospital Problems No resolved problems to display. ADMISSION HISTORY & PHYSICAL EXAM (focused): Per Dr. Umanzor Ms. Gavi Sim is a 48 y/o female with PMHx significant for anxiety, ADHD, hypokalemia, GERD, gastritis and colitis who presents to the [facility] ED c/o worsening nausea/vomiting and diarrhea. She states that she has been having occasional episodes of these symptoms since her last admission for similar c oncerns one month ago. She reports that typically her episodes of nausea and vomiting were more brief and would last less than a day. However, she notes that she has been having worsening symptoms for the past 3 days and states that she has not been able to eat and drink much until just this morning, and states that she has been having numbness and tingling in her hands. She reports some chest discomfort and dyspnea that has resolved, and otherwise denies fever/chills, weakness or other concerns. Due to the worsening issues, she comes to the [facility] ED for further evaluation. In the ED, workup was significant for hypokalemia, stable magnesium levels and otherwise unremarkable labs. Repeat potassium after 4 hours and 40 meq of potassium was unchanged and remained 2.7. EKG shows sinus tachycardia with a rate of about 117 bpm. Patient reports concerns as outlined above anddenies additional concerns at this time. She was admitted for further evaluation and care. Most Recent Vital Signs: BP: 116 mmHg/65 mmHg (01/27/24 0300) Pulse: 85 (01/27/24 0300) Temp: 36.5 C (01/26/241846) Temp Summary: Temp Min: 36.5 C (97.7 F) Max: 36.5 C (97.7 F) SpO2: 100 % (01/26/241846) O2 flow rate: Supplemental O2 Delivery: Room Air, None (01/26/24 605) Physical Exam Constitutional: General: She is not in acute distress. Appearance: Normal appearance. HENT: Head: Normocephalic and atraumatic. Mouth/Throat: Mouth: Mucous membranes are moist. Eyes: Extraocular Movements: Extraocular movements intact. Pupils: Pupils are equal, round, and reactive to light. Cardiovascular: Rate and Rhythm: Normal rate and regular rhythm. Heart sounds: No murmur heard. No friction rub. No gallop. Pulmonary: Effort: Pulmonary effort is normal. Breath sounds: Normal breath sounds. No wheezing, rhonchi or rales. Abdominal: General: Abdomen is flat. Bowel sounds are normal. There is no distension. Palpations: Abdomen is soft. There is no mass. Tenderness: There is no abdominal tenderness. Musculoskeletal: General: Normal range of motion. Cervical back: Normal range of motion and neck supple. Skin: General: Skin is warm and dry. Neurological: General: No focal deficit present. Mental Status: She is alert and oriented to person, place, and time. Psychiatric: Mood and Affect: Mood normal. Behavior: Behavior normal. HOSPITAL COURSE (focused): 48-year-old female with PMH anxiety, ADHD, recurrent hypokalemia, chronic nausea, vomiting, diarrhea, GERD, gastritis and colitis presenting with worsening nausea, vomiting and diarrhea. Found to have hypokalemia at 2.7. Admitted for hypokalemia and intractable nausea, vomiting and diarrhea. States that her symptoms have been ongoing for at least 9 months. States they are intermittent. States shehas diarrhea anywhere from 1-3 watery bowel movements a day but there is intermittent episodes of constipation for 1-2 days. Patient does have EGD and colonoscopy scheduled for April. Initially received 120 mEq of potassium and was placed back on her scheduled 30 mEq twice daily if potassium. Restof the electrolytes were unremarkable. Hypokalemia has since resolved. She did not any episodes of diarrhea of vomiting during this admission. As for chronic nausea, vomiting and diarrhea stool studies were negative. Discussed with patient and she would like as needed Imodium for diarrhea. Of note patient had recent iron-deficiency anemia requiring Venofer. Repeat of iron studies were unremarkable. Patient also noted to B12 deficiency. States she normally takes B12 injections but she would like we will B12 supplements. UA also showed some small leukocyte esterase but patient denied any UTI symptoms so no antibiotics were initiated. She is medically stable for discharge today. Operations & Procedures: none Complications: none significant Significant Lab and Imaging Results: Results for orders placed or performed during the hospital encounter of 01/26/24 COMPREHENSIVE METABOLIC PANEL Result Value Ref Range BUN 13 6 - 20 mg/dL Creatinine 0.8 0.5 - 1.0 mg/dL Estimated Glomerular Filtration Rate >90 >=60 mL/min Sodium 139 135 - 146 mmol/L Potassium 2.7 (L) 3.5 - 5.1 mmol/L Chloride 98 98 - 107 mmol/L CO2 28 22 - 32 mmol/L Anion Gap 13 7 - 15 mmol/L Glucose 119 70 - 120 mg/dL Albumin 4.7 3.8 - 5.0 g/dL AST 20 10 - 35 U/L Alkaline Phosphatase 141 (H) 35 - 130 U/L Bilirubin, Total 0.3 <=1.2 mg/dL Calcium 10.0 8.4 - 10.2 mg/dL Protein 8.0 6.0 - 8.3 g/dL ALT 13 10 - 35 U/L LIPASE Result Value Ref Range Lipase 35 13 - 60 U/L BETA-HCG, QUANTITATIVE Result Value Ref Range Beta-HCG, Quantitative 3.9 (H) <=1.0 mIU/mL CBC Result Value Ref Range WBC 9.54 4.00 - 10.80 K/uL RBC 5.12 3.85 - 5.15 M/uL HGB 16.2 (H) 12.0 - 15.3 g/dL HCT 44.4 36.0 - 45.2 % MCV 86.7 81.5 - 97.5 fL MCH 31.6 27.0 - 34.0 pg MCHC 36.5 32.0 - 36.0 g/dL RDW 12.4 11.5 - 15.5 % PLT 473 (H) 140 - 400 K/uL MPV 8.8 6.6 - 11.1 fL nRBCs 0 <=0 /100 WBCs DIFFERENTIAL, AUTOMATED Result Value Ref Range WBC 9.54 4.00 - 10.80 K/uL Neutrophils % 57.1 40.0 - 75.0 % Lymphocytes % 34.6 18.0 - 42.0 % Monocytes % 7.2 1.0 - 11.0 % Eosinophils % 0.4 0.0 - 6.0 % Basophils % 0.4 0.0 - 2.0 % Immature Granulocytes % 0.3 0.0 - 2.0 % Absolute Neutrophils 5.44 1.80 - 7.70 K/uL Absolute Lymphocytes 3.30 1.00 - 4.80 K/ul Absolute Monocytes 0.69 0.00 - 1.10 K/uL Absolute Eosinophils 0.04 0.00 - 0.70 K/uL Absolute Basophils 0.04 0.00 - 0.20 K/uL Absolute Immature Granulocytes 0.03 0.00 - 0.20 K/uL URINALYSIS, REFLEX TO CULTURE (CUP ONLY) Result Value Ref Range Urinalysis, Reflex to Culture Specimen Specimen collected and received URINALYSIS, REFLEX TO CULTURE Result Value Ref Range Color, Urine Yellow Light Yellow, Yellow, Dark Yellow Clarity, Urine Slightly Cloudy (A) Clear Glucose, Urine Negative Negative mg/dL Bilirubin, Urine Negative Negative Ketone, Urine Negative Negative mg/dL Specific [place], Urine 1.023 1.003 - 1.030 Blood, Urine Negative Negative pH, Urine 6.0 5.0 - 7.5 Units Protein, Urine Trace (A) Negative mg/dL Urobilinogen, Urine 0.2 0.2, 1.0 mg/dL Nitrite, Urine Negative Negative Esterase, Urine Small (A) Negative RBC, Urine 0-2 0 - 2 /HPF WBC, Urine 6-9 (A) 0 - 2 /HPF Bacteria, Urine 51-100 (A) 0 - 25 /HPF Mucus, Urine Many (A) None /HPF Yeast, Urine Present (A) None /HPF Culture, Urine CLOSTRIDIUM DIFFICILE, PCR Result Value Ref Range Stool Consistency Liquid Clostridium difficile Result Negative Negative. No C. difficile toxin B gene DNA detected by PCR (Amplified Probe). GASTROINTESTINAL PATHOGEN PANEL PCR Result Value Ref Range Campylobacter group by PCR Negative Negative Salmonella species by PCR Negative Negative Shigella species by PCR Negative Negative Vibrio group by PCR Negative Negative Yersinia enterocolitica by PCR Negative Negative Shiga Toxin 1 Gene by PCR Negative Negative Shiga Toxin 2 Gene by PCR Negative Negative Norovirus by PCR Negative Negative Rotavirus by PCR Negative Negative CRP (INFLAMMATORY MARKER) Result Value Ref Range CRP (Inflammatory Marker) 5 <=5 mg/L PROCALCITONIN Result Value Ref Range Procalcitonin 0.07 <0.10 ng/mL POTASSIUM Result Value Ref Range Potassium 2.7 (L) 3.5 - 5.1 mmol/L MAGNESIUM Result Value Ref Range Magnesium 1.8 1.5 - 2.6 mg/dL PHOSPHORUS Result Value Ref Range Phosphorus 2.5 2.5 - 4.8 mg/dL VITAMIN B12 Result Value Ref Range Vitamin B12 255 232 - 1,245 pg/mL IRON SCREEN, INCLUDING TIBC Result Value Ref Range Iron 51 33 - 151 ug/dL Iron Binding Capacity 209 (L) 250 - 425 ug/dL Transferrin Saturation Percent 24 15 - 55 % FERRITIN Result Value Ref Range Ferritin 151 (H) 13 - 150 ng/mL BASIC METABOLIC PANEL Result Value Ref Range BUN 9 6 - 20 mg/dL Creatinine 0.7 0.5 - 1.0 mg/dL Estimated Glomerular Filtration Rate >90 >=60 mL/min Sodium 142 135 - 146 mmol/L Potassium 4.5 3.5 - 5.1 mmol/L Chloride 115 (H) 98 - 107 mmol/L CO2 20 (L) 22 - 32 mmol/L Anion Gap 7 7 - 15 mmol/L Glucose 105 70 - 120 mg/dL Calcium 8.4 8.4 - 10.2 mg/dL CBC Result Value Ref Range WBC 7.69 4.00 - 10.80 K/uL RBC 3.61 3.85 - 5.15 M/uL HGB 11.1 (L) 12.0 - 15.3 g/dL HCT 33.3 (L) 36.0 - 45.2 % MCV 92.2 81.5 - 97.5 fL MCH 30.7 27.0 - 34.0 pg MCHC 33.3 32.0 - 36.0 g/dL RDW 12.8 11.5 - 15.5 % PLT 311 140 - 400 K/uL MPV 9.1 6.6 - 11.1 fL nRBCs 0 <=0 /100 WBCs BASIC METABOLIC PANEL Result Value Ref Range BUN 9 6 - 20 mg/dL Creatinine 0.7 0.5 - 1.0 mg/dL Estimated Glomerular Filtration Rate >90 >=60 mL/min Sodium 142 135 - 146 mmol/L Potassium 4.3 3.5 - 5.1 mmol/L Chloride 111 (H) 98 - 107 mmol/L CO2 23 22 - 32 mmol/L Anion Gap 8 7 - 15 mmol/L Glucose 102 70 - 120 mg/dL Calcium 8.4 8.4 - 10.2 mg/dL MAGNESIUM Result Value Ref Range Magnesium 1.9 1.5 - 2.6 mg/dL URINE SCREEN, POINT OF CARE (ENTER/EDIT) Result Value Ref Range hCG Beta, Urine Negative Procedural Control Valid? No orders to display Results Pending at Discharge: Lab Results Pending at Discharge: MAGNESIUM Routine METHYLMALONIC ACID, SERUM Routine HOMOCYSTEINE Routine CULTURE, URINE, QUANTITATIVE STAT GASTROINTESTINAL PATHOGEN PANEL, STOOL Routine Placed in "And" Linked Group GASTROINTESTINAL PATHOGEN PANEL CULTURE Routine MEDICATION UPDATES AT DISCHARGE START taking these medications INSTRUCTIONS loperamide 2 MG Capsule Commonly known as: Imodium Take 1 Capsule by mouth every 6 hours as needed for Diarrhea. CHANGE how you take these medications INSTRUCTIONS * vitamin b-12 1000 MCG/ML injection Commonly known as: Cyanocobalamin What changed: Another medication with the same name was added. Make sure you understand how and when to take each. Inject 1,000 mcg into a large muscle every 30 days. * Vitamin B-12 1000 MCG Tablet Commonly known as: Cyanocobalamin What changed: You were already taking a medication with the same name, and this prescription was added. Make sure you understand how and when to take each. Take 1 Tablet by mouth in the morning. * This list has 2 medication(s) that are the same as other medications prescribed for you. Read thedirections carefully, and ask your doctor or other care provider to review them with you. CONTINUE taking these medications INSTRUCTIONS calcium CARBonate 750 MG chewable tablet Commonly known as: Tums E-X Take 2 Tablets by mouth in the morning. clonazePAM 1 MG Tablet Commonly known as: KlonoPIN Take 1 Tablet by mouth in the morning and 1 Tablet before bedtime. Desvenlafaxine Succinate ER 100 MG Tb24 Commonly known as: Pristiq Take 1 Tablet by mouth in the morning. Linzess 290 MCG Capsule Generic drug: linaCLOtide Take 1 Capsule by mouth daily before breakfast. methylPHENIDATE 20 MG Tablet Commonly known as: Ritalin Take 1 Tablet by mouth in the morning and 1 Tablet at noon and 1 Tablet in the evening. NexIUM 40 MG Cpdr Generic drug: Esomeprazole Magnesium Take 1 Capsule by mouth daily before breakfast. ondansetron ODT 4 MG Tbdp Commonly known as: Zofran Place 1 Tablet on tongue every 8 hours as needed for Nausea or Vomiting. dissolve on tongue. Potassium Chloride ER 20 MEQ Tbcr Take 2 Tablets by mouth in the morning and 2 Tablets before bedtime. QUEtiapine 200 MG Tablet Commonly known as: SEROquel Take by mouth 1 Tablet before bedtime. Vitron-C 65-125 MG Tablet Generic drug: Iron-Vitamin C 65-125 mg per tab Take 1 Tablet by mouth in the morning. SCHEDULED FOLLOW-UP: Future Appointments This patient does not currently have any appointments scheduled. Other Information Indwelling Devices: LINES ALL Duration Peripheral Line Left Antecubital 22 Gauge 1 day Vital Signs (last recorded): Most Recent Systolic BP: 99 mmHg (01/28/24699) Most Recent Diastolic BP: 54 mmHg (01/28/24699) Pulse: 80 (01/28/24700) Resp: 16 (01/28/24699) Most Recent Temperature: 36.72 C (01/28/24699) Weight: 62.7 kg (138 lb 4.8 oz) (01/28/24557) SpO2: 98 % (01/28/24699) Allergies: Erythromycin Activity: as tolerated Diet: age appropriate diet Code Status: Full Code Condition on Discharge: stable Isolation status: None Cognition: normal HOSPITAL CONSULTS ORDERED: None REFERRING PHYSICIAN: Ref: SELF[[id number]] NO STREET ADDRESS AVAILABLE None (office) None (fax) PRIMARY CARE PROVIDER: PCP: Laura Tse MD [address] / [place] [address] (office) [phone] (fax) Note: To contact a physician responsible for this patients hospital care, please call [employer] [phone]. I spent a total of 35 minutes coordinating, documenting, and providing care for this patient excluding time spent in the performance of separately billed services. documented in this encounter Discharge Instructions * Appointments* Piedad Treadwell [facility] - 01/28/2024 9:38 AM EDT Laura Tse [phone] Monday to schedule an appointment [address], [place] * Discharge Instr - AVS* Sybil Tripp DO - 01/28/2024 9:20 AM EDT Discharge Date: 01/28/2024 The information below provides you with the instructions and the list of medications you need to betaking following discharge from the hospital. If you have any questions, please ask before leaving. If you have questions after leaving, you can reach us at the numbers below. YOUR HOSPITAL PROVIDERS: Discharging Provider: Sybil Tripp DO Provider Department: Hospital Medicine To reach this Provider Monday through Monday (8:00 AM to 4:30 PM) for any questions or test results: Call [phone] For after-hours concerns: Call [phone] and have your provider paged, or the provider account resolution specialist for the Department of Hospital Medicine paged. Please note, the discharging provider will not be able to provide you with any medications refills.Please discuss these with your primary care provider. Worsening Symptoms: If you have new symptoms, or your symptoms get worse, please contact your Discharge Provider or Primary Care Provider (PCP). If these providers are not available, you can [facility] your [facility] during their business hours. In an EMERGENCY situation: Call 911 or go to the nearest emergency room. A BRIEF SUMMARY OF YOUR HOSPITAL STAY: You came to the hospital with: complaint of acute on chronic nausea, vomiting, diarrhea Your main diagnosis at discharge was: Severe hypokalemia in the setting of diarrhea and vomiting Operations & Procedures performed: none Complications: none significant Inpatient test results that are pending at discharge: none Advance Directive Documented: Advance Directive Does the Patient have an Advance Directive? No YOUR FOLLOW UP APPOINTMENTS: Primary Care Provider Information: PCP: Laura Tse MD [address] [place] [address] / [facility] [address] (office) [phone] (fax) An appointment was requested with your PCP (Laura Tse MD) within 7 days. (Please take this form to this visit with your primary care physician.) You need the following studies in the future: none INSTRUCTIONS: Diet: Normal diet Activity: No restrictions Medications: Loperamide as needed for diarrhea Continue scheduled potassium B12 supplement. 1000 mcg oral tablet daily Additional Instructions: documented in this encounter Progress Notes * Stanislaw Banegas RP - 01/28/2024 9:24 AM EDT PHARMACY DISCHARGE MEDICATION RECONCILIATION REVIEW [address] [place] [address] Name: Gavi Sim Location: [facility] [id number] Date: 01/28/2024 Time: 9:24 AM This discharge medication reconciliation was reviewed by a pharmacist and no corrections or interventions were required. documented in this encounter H&P Notes * Gary Benton PA-C - 01/27/2024 4:32 AM EDT Images from the original note were not included. [facility] 14/X PRESENTING PROBLEM: Nausea/vomiting/diarrhea HPI: Ms. Gavi Sim is a 48 y/o female with PMHx significant for anxiety, ADHD, hypokalemia, GERD,gastritis and colitis who presents to the [facility] ED c/o worsening nausea/vomiting and diarrhea. She states that she has been having occasional episodes of these symptoms since her last admission for similar concerns one month ago. She reports that typically her episodes of nausea and vomiting were more brief and would last less than a day. However, she notes that she has been having worsening symptoms for the past 3 days and states that she has not been able to eat and drink much until just this morning, and states that she has been having numbness and tingling in her hands. She reports some chest discomfort and dyspnea that has resolved, and otherwise denies fever/chills, weakness or other concerns. Due to the worsening issues, she comes to the [facility] ED for further evaluation. In the ED, workup was significant for hypokalemia, stable magnesium levels and otherwise unremarkable labs. Repeat potassium after 4 hours and 40 meq of potassium was unchanged and remained 2.7. EKG shows sinus tachycardia with a rate of about 117 bpm. Patient reports concerns as outlined above anddenies additional concerns at this time. She was admitted for further evaluation and care. Subjective ROS: As above in HPI, otherwise negative Patient's past history, medications, and allergies were reviewed. Objective Physical Exam Most Recent Vital Signs: BP: 116 mmHg/65 mmHg (01/27/24 0300) Pulse: 85 (01/27/24 0300) Temp: 36.5 C (01/26/241846) Temp Summary: Temp Min: 36.5 C (97.7 F) Max: 36.5 C (97.7 F) SpO2: 100 % (01/26/241846) O2 flow rate: Supplemental O2 Delivery: Room Air, None (01/26/241846) Physical Exam Constitutional: General: She is not in acute distress. Appearance: Normal appearance. HENT: Head: Normocephalic and atraumatic. Mouth/Throat: Mouth: Mucous membranes are moist. Eyes: Extraocular Movements: Extraocular movements intact. Pupils: Pupils are equal, round, and reactive to light. Cardiovascular: Rate and Rhythm: Normal rate and regular rhythm. Heart sounds: No murmur heard. No friction rub. No gallop. Pulmonary: Effort: Pulmonary effort is normal. Breath sounds: Normal breath sounds. No wheezing, rhonchi or rales. Abdominal: General: Abdomen is flat. Bowel sounds are normal. There is no distension. Palpations: Abdomen is soft. There is no mass. Tenderness: There is no abdominal tenderness. Musculoskeletal: General: Normal range of motion. Cervical back: Normal range of motion and neck supple. Skin: General: Skin is warm and dry. Neurological: General: No focal deficit present. Mental Status: She is alert and oriented to person, place, and time. Psychiatric: Mood and Affect: Mood normal. Behavior: Behavior normal. Peripheral Line Left Antecubital 22 Gauge (Active) Number of days: 1 STUDIES: Encounter Orders Labs and other studies reviewed with pertinent findings noted below: Results for orders placed or performed during the hospital encounter of 01/26/24 COMPREHENSIVE METABOLIC PANEL Result Value Ref Range BUN 13 6 - 20 mg/dL Creatinine 0.8 0.5 - 1.0 mg/dL Estimated Glomerular Filtration Rate >90 >=60 mL/min Sodium 139 135 - 146 mmol/L Potassium 2.7 (L) 3.5 - 5.1 mmol/L Chloride 98 98 - 107 mmol/L CO2 28 22 - 32 mmol/L Anion Gap 13 7 - 15 mmol/L Glucose 119 70 - 120 mg/dL Albumin 4.7 3.8 - 5.0 g/dL AST 20 10 - 35 U/L Alkaline Phosphatase 141 (H) 35 - 130 U/L Bilirubin, Total 0.3 <=1.2 mg/dL Calcium 10.0 8.4 - 10.2 mg/dL Protein 8.0 6.0 - 8.3 g/dL ALT 13 10 - 35 U/L LIPASE Result Value Ref Range Lipase 35 13 - 60 U/L BETA-HCG, QUANTITATIVE Result Value Ref Range Beta-HCG, Quantitative 3.9 (H) <=1.0 mIU/mL CBC Result Value Ref Range WBC 9.54 4.00 - 10.80 K/uL RBC 5.12 3.85 - 5.15 M/uL HGB 16.2 (H) 12.0 - 15.3 g/dL HCT 44.4 36.0 - 45.2 % MCV 86.7 81.5 - 97.5 fL MCH 31.6 27.0 - 34.0 pg MCHC 36.5 32.0 - 36.0 g/dL RDW 12.4 11.5 - 15.5 % PLT 473 (H) 140 - 400 K/uL MPV 8.8 6.6 - 11.1 fL nRBCs 0 <=0 /100 WBCs DIFFERENTIAL, AUTOMATED Result Value Ref Range WBC 9.54 4.00 - 10.80 K/uL Neutrophils % 57.1 40.0 - 75.0 % Lymphocytes % 34.6 18.0 - 42.0 % Monocytes % 7.2 1.0 - 11.0 % Eosinophils % 0.4 0.0 - 6.0 % Basophils % 0.4 0.0 - 2.0 % Immature Granulocytes % 0.3 0.0 - 2.0 % Absolute Neutrophils 5.44 1.80 - 7.70 K/uL Absolute Lymphocytes 3.30 1.00 - 4.80 K/ul Absolute Monocytes 0.69 0.00 - 1.10 K/uL Absolute Eosinophils 0.04 0.00 - 0.70 K/uL Absolute Basophils 0.04 0.00 - 0.20 K/uL Absolute Immature Granulocytes 0.03 0.00 - 0.20 K/uL URINALYSIS, REFLEX TO CULTURE (CUP ONLY) Result Value Ref Range Urinalysis, Reflex to Culture Specimen Specimen collected and received URINALYSIS, REFLEX TO CULTURE Result Value Ref Range Color, Urine Yellow Light Yellow, Yellow, Dark Yellow Clarity, Urine Slightly Cloudy (A) Clear Glucose, Urine Negative Negative mg/dL Bilirubin, Urine Negative Negative Ketone, Urine Negative Negative mg/dL Specific [place], Urine 1.023 1.003 - 1.030 Blood, Urine Negative Negative pH, Urine 6.0 5.0 - 7.5 Units Protein, Urine Trace (A) Negative mg/dL Urobilinogen, Urine 0.2 0.2, 1.0 mg/dL Nitrite, Urine Negative Negative Esterase, Urine Small (A) Negative RBC, Urine 0-2 0 - 2 /HPF WBC, Urine 6-9 (A) 0 - 2 /HPF Bacteria, Urine 51-100 (A) 0 - 25 /HPF Mucus, Urine Many (A) None /HPF Yeast, Urine Present (A) None /HPF Culture, Urine CRP (INFLAMMATORY MARKER) Result Value Ref Range CRP (Inflammatory Marker) 5 <=5 mg/L PROCALCITONIN Result Value Ref Range Procalcitonin 0.07 <0.10 ng/mL POTASSIUM Result Value Ref Range Potassium 2.7 (L) 3.5 - 5.1 mmol/L MAGNESIUM Result Value Ref Range Magnesium 1.8 1.5 - 2.6 mg/dL PHOSPHORUS Result Value Ref Range Phosphorus 2.5 2.5 - 4.8 mg/dL URINE SCREEN, POINT OF CARE (ENTER/EDIT) Result Value Ref Range hCG Beta, Urine Negative Procedural Control Valid? No orders to display Assessment and Plan IMPRESSION: Principal Problem: Hypokalemia Active Problems: Esophageal reflux Nausea, vomiting and diarrhea Resolved Problems: * No resolved hospital problems. * PLAN: - Admit with telemetry for observation - Potassium supplementation as directed - Continue with outpatient plan for follow up with GI in regards to GI symptoms. If symptoms persisting and still admitted by Monday, consider GI consult - Vitamin B12 add-on given previous low levels and peripheral numbness today - Follow up BMP ordered for this afternoon - Continue home medications as directed - VTE prophylaxis: SCDs CODE STATUS: Full Code EXPECTED DISCHARGE DATE: 01/28/[address] Erna Palacios spent a total of 60 minutes coordinating, documenting, and providing care for this patient excluding time spent in the performance of separately billed services. Associated attestation - Erika Umanzor MD - 01/27/2024 6:22 AM EDT I have reviewed the advanced practitioner's documentation on the date of service referenced in note, and I agree with, and take responsibility for the plan of care. I spent a total of 50 minutes coordinating, documenting, and providing care for this patient excluding time spent in the performance of separately billed services or time spent by another provider/QHP. Patient seen and evaluated with Gary Benton PA-C Patient is a 48 yo lady with history of ADHD, GERD, hypoK who came with nausea, vomiting and diarrhea. Patient was found hypokalemic. Will keep on Tele observation, replace K, IVF Erika Umanzor MD EDMOND documented in this encounter Nursing Notes * Etelvina Cardona RN - 01/27/2024 8:20 PM EDT Pt resting quietly in bed with no complaints voiced at this time. Respirations even on room air. Assessment charted by this RN. No needs voiced at this time. Call manzanares in reach * Nishi Cruz RN - 01/27/2024 6:24 AM EDT Pt arrived to the floor via stretcher. Ambulated to bed. Denies pain at this time. Oriented to roomand call manzanares. Call manzanares within reach. IVF infusing without difficulty. Dual Licensed Skin Assessment completed by DUSTY De Anda and MohsenRN. The patient is/has a N/A Skin Breakdown (includes non blanchable erythema): No documented in this encounter ED Notes * Jennifer Duong RN - 01/26/2024 6:50 PM EDT Pt states she has had these multiple symptoms for 3 days documented in this encounter Miscellaneous Notes * Pt Handout (on AVS) - Magi Gentile RN - 01/28/2024 9:43 AM EDT Images from the original note were not included. [id number] Loperamide Oral Capsule Brands: Imodium Uses For diarrhea. Instructions This medicine may be taken with or without food. Store at room temperature away from heat, light, and moisture. Do not keep in the bathroom. Drink plenty of water while on this medicine. Avoid drinks with caffeine while on this medicine. Tell your doctor and pharmacist about all your medicines. Include prescription and ivil-tyq-pmnyyxevahwqdjwc, vitamins, and herbal medicines. Tell your doctor if symptoms do not get better or if they get worse. Cautions This medicine is not approved for use in children younger than 2. Tell your doctor and pharmacist if you ever had an allergic reaction to a medicine. Do not use the medication any more than instructed. Tell the doctor or pharmacist if you are , planning to be , or . Side Effects The following is a list of some common side effects from this medicine. Please speak with your doctor about what you should do if you experience these or other side effects. constipation dizziness or drowsiness lack of energy and tiredness Call your doctor or get medical help right away if you notice any of these more serious side effects: severe or persistent abdominal pain fainting fast or irregular heart beats severe or persistent vomiting A few people may have an allergic reaction to this medicine. Symptoms can include difficulty breathing, skin rash, itching, swelling, or severe dizziness. If you notice any of these symptoms, seek medical help quickly. Extra Please speak with your doctor, nurse, or pharmacist if you have any questions about this medicine. [email or web address] IMPORTANT NOTE: This document tells you briefly how to take your medicine, but it does not tell youall there is to know about it. Your doctor or pharmacist may give you other documents about your medicine. Please talk to them if you have any questions. Always follow their advice. There is a more complete description of this medicine available in Guinean. Scan this code on your smartphone or tablet or use the web address below. You can also ask your pharmacist for a printout. If you have any questions, please ask your pharmacist. The display and use of this drug information is subject to Terms of Use. Copyright(c) 2023 [employer]. 9201-2132 [employer]. All rights reserved. This information is not intended as a substitute for professional medical care. Always follow your healthcare professional's instructions. * Hospital Course - Refugio Lopez DO - 01/27/2024 10:47 AM EDT Gavi Sim is a 48 year old female with a PMH of anxiety, hypokalemia GERD, gastritis and colitis who presented to the ED with worsening nausea, vomiting and diarrhea. ED work up was significant forhypokalemia (2.7). Other significant labs included low B12, and high Hbg and platelets. Lipase, CRP, Mg and phose were all normal. Vitals were stable. She was started on scheduled potassium 30mEq BID. A C.diff panel came back negative with a stool panel in progress. U/a came back positive for a small amount of esterase but patient was not symptomatic CT abdomen showed mild gastritis and colitis. EKG showed NSS with tachycardia. * Progress Notes - Non-Billable - Refugio Lopez DO - 01/27/2024 10:15 AM EDT Images from the original note were not included. [facility] [id number] INTERVAL HISTORY: Ms. Gavi Sim is a 48 y/o female with PMHx significant for anxiety, ADHD, hypokalemia, GERD, gastritis and colitis who presents to the [facility] ED c/o worsening nausea/vomiting, diarrhea and significanthypokalemia (2.7). Of note, she was recently admitted one month prior for similar symptoms and hypokalemia and was found to have inflammatory colitis. Admitted for Hypokalemia Today: States she's been having ongoing nausea and vomiting for the past month, not associated withany time of day or eating. She has anywhere from 1-3 watery bowel movements a day and notices occasional blood. She does have days when she does not have any vomiting or diarrhea. She is having abdominal pain and some intermittent burning in her chest. She also is having numbness and tingling in her hands bilaterally. She states she has not followed with GI outpatient but has an endoscopy schedule for April. She denies any urinary symptoms at this time. No SOB, no palpitations. Objective Physical Exam Most Recent Vital Signs: BP: 91 mmHg/43 mmHg (01/27/24733) Pulse: 79 (01/27/2435) Temp: 36.61 C (01/27/24733) Temp Summary: Temp Min: 35.8 C (96.4 F) Max: 36.6 C (97.9 F) SpO2: 99 % (01/27/24733) O2 flow rate: Supplemental O2 Delivery: Room Air, None (01/27/24733) Constitutional: no acute distress Chest: normal respiratory effort, breath sounds normal Abdomen: soft, no mass, tenderness in mid epigastric area Extremities: no edema, normal ROM Skin: warm, dry, intact: Neuro: alert, oriented to person, place, and time Psych: normal mood and affect, anxious Peripheral Line Left Antecubital 22 Gauge (Active) Number of days: 1 STUDIES: Encounter Orders Labs and other studies reviewed with pertinent findings noted below: Lab results within last 7 days (see chart for full results) Units 01/26/24 2308 HGB g/dL 16.2* HCT % 44.4 WBC K/uL 9.54 PLT K/uL 473* Lab results within last 7 days (see chart for full results) Units 01/27/24 0313 01/26/24 2308 Sodium mmol/L -- 139 Potassium mmol/L 2.7* 2.7* Chloride mmol/L -- 98 CO2 mmol/L -- 28 BUN mg/dL -- 13 Creatinine mg/dL -- 0.8 Latest Reference Range & Units 12/28/23 21:53 Vitamin B12 232 - 1,245 pg/mL 203 (L) Latest Reference Range & Units 12/28/23 14:52 Lactate 0.4 - 2.0 mmol/L 2.6 (H) Latest Reference Range & Units 01/26/24 23:08 Procalcitonin <0.10 ng/mL 0.07 Assessment and Plan IMPRESSION : Principal Problem: Hypokalemia Active Problems: Esophageal reflux Nausea, vomiting and diarrhea Resolved Problems: * No resolved hospital problems. * DIFFERENTIAL AND PLAN: Ms. Gavi iSm is a 48 y/o female with PMHx significant for anxiety, ADHD, hypokalemia, GERD, gastritis and colitis who presents to the [facility] ED worsening nausea/vomiting, diarrhea and was admitted for hypokalemia (2.7). Hypokalemia: - on scheduled potassium 30 BID -Will continue to trend potassium Diarrhea/Vomiting: C.Diff came back negative Stool panel pending Was previously diagnosed with inflammatory colitis. CT abdomen : showed mild gastritis and colitis etiology. Imodium PRN Low Vitamin B12 -Will replace B12 Elevated Hbg and Platelets -Start on NSS 75mL/hr Iron Deficiency -Will repeat Iron studies PHARMACOLOGIC VTE PROPHYLAXIS: This patient does not have an active medication from one of the medication groupers. CODE STATUS: Full Code EXPECTED DISCHARGE DATE: No information available Patient was discussed with MD Refugio Belcher DO PGY1 [employer] Helper 01/27/2024 10:39 AM Associated attestation - Sybil Tripp DO - 01/27/2024 11:14 AM EDT I saw and evaluated the patient today. I have reviewed the trainee note and agree. 48-year-old female with PMH anxiety, ADHD, recurrent hypokalemia, chronic nausea, vomiting, diarrhea, GERD, gastritis and colitis presenting with worsening nausea, vomiting and diarrhea. Found to have hypokalemia at 2.7. Admitted for hypokalemia and intractable nausea, vomiting and diarrhea. Subjective: Patient evaluated at bedside. States she had an episode diarrhea this morning. No episodes of vomiting as of yet. Endorses some mild right upper quadrant abdominal pain that is intermittent and chronic. - 30 minute conversation had with the patient. States that her symptoms have been ongoing for at least 9 months. States they are intermittent. States she has diarrhea anywhere from 1-3 watery bowel movements a day but there is intermittent episodes of constipation for 1-2 days. Patient does have EGD and colonoscopy scheduled. Denies smoking history, alcohol, or any personal or family history of cancers. - has received a total of 120 mEq of potassium. Continue scheduled potassium 30 mEq bid. Repeat BMPthis afternoon. Rest of the electrolytes are unremarkable. - hemoglobin and rest of cell lines elevated compared to where they were 1 month ago. She may be hemoconcentrated. Continue IV fluids for now and continue to encourage oral hydration. - stool studies pending. Suspect less likely infectious given that diarrhea has been ongoing for several months. If still studies negative, can add as needed loperamide. - iron studies were low 1 month ago and she received IV Venofer. Recheck iron studies. - B12 levels were low in December and patient states she gets B12 injections but only gets them if somebody is able to give her the injection. Initiate oral B12 supplement - MMA and homocystine levels - continue Reglan for now. as needed Zofran. - UA did show some small leukocyte esterase but patient denies any UTI symptoms. * Medical Necessity - Sylwia Osorio, RN - 01/27/2024 4:41 AM EDT AdmissionCare Guideline: General Observation, Observation Based on the indications selected for the patient, the bed status of Observation was determined to be MET The following indications were selected as present at the time of evaluation of the patient: - Clinical care (eg, testing, monitoring, or treatment) needed beyond the usual emergency department time frame (eg, 3 to 4 hours) - Clinical care needed is not appropriate for a lower level of care (ie, discharge to outpatient setting not appropriate). - Patient has clinical condition for which observation care is needed, as indicated by 1 or more ofthe following: - Electrolyte or metabolic condition or finding (eg, hypernatremia, hyponatremia, hyperkalemia, hypokalemia, hypercalcemia, metabolic acidosis, malnutrition, Anasarca) Additional Information: Presents to the ED for evaluation of Nausea, Vomiting, Diarrhea, Chest Pain, and Abdominal Pain. Potassium 2.7 Treatment: Potassium ivpb AdmissionCare documentation entered by: Sylwia Osorio [facility], 27th edition, Copyright 2022 [facility] [employer] All Rights Reserved. [id number]:41:00-04:00 Solely for purpose of utilization review and payment; not a diagnostic tool * Pt Handout (on AVS) - Josafat Finney CRNP - 01/27/2024 2:49 AM EDT [id number] Potassium-Rich Foods The recommended average daily intake of potassium for a healthy man is 3,400 mg a day. For a healthy woman who is not , the amount is 2,600 mg a day. More potassium is needed when you lose too much potassium from your body. This can happen if you have diarrhea or vomiting. Or if you have inflammatory bowel disease. It can also happen if you take a medicine to make you urinate more (diuretic) or large doses of laxatives. People with chronic kidney disease must be careful not to get too much potassium. If your healthcare provider tells you that you need to increase the amount of potassium in your diet, include these high-potassium foods. [The (*) indicates foods highest in potassium.] Vegetables Artichokes. Cooked 1/2 cup, 200 mg to 300 mg* Asparagus. Cooked 1/2 cup, 200 mg to 300 mg Beans. White, red, ray cooked 1/2 cup, 300 mg to 500 mg* Beets. Cooked 1/2 cup, 200 mg to 300 mg Broccoli. Cooked or raw 1 cup, 200 mg to 500 mg* [place] sprouts. Cooked 1/2 cup, 200 mg to 300 mg Cabbage. Raw 1 cup, 100 mg to 200 mg Carrots. Raw or cooked 1/2 cup, 100 mg to 200 mg Celery. Raw 1 cup, 200 mg to 300 mg [place] beans. Fresh or frozen 1/2 cup, 300 mg to 500 mg* Mushrooms. Raw or cooked 1/2 cup, 100 mg to 300 mg Peas. Cooked 1/2 cup, 150 mg to 250 mg Potatoes. Baked 1 medium, 500 mg to 900 mg* Spinach. Cooked 1 cup, 800 mg to 900 mg* Spinach. Raw 2 cups, 300 mg to 400 mg* Squash, winter. Fresh, frozen, or cooked 1/2 cup, 200 mg to 400 mg Tomato. Fresh 1 medium, 200 mg to 300 mg Tomato juice. Canned 1/2 cup, 200 mg to 300 mg Fruits Apple juice. Unsweetened 1 cup, 200 mg to 300 mg Apricots. Canned 1/2 cup, 200 mg to 300 mg Apricots. Dried 4 pieces, 100 mg to 200 mg Avocado. Raw 1/2 cup, 300 mg to 400 mg* Banana. Fresh 1 small, 300 mg to 400 mg* Cantaloupe. Fresh 1 cup diced, 300 mg to 400 mg* Grape juice. Unsweetened 1 cup, 200 mg to 300 mg Honeydew melon. Fresh 1 cup diced, 300 mg to 400 mg* [place]. Fresh 1 medium, 200 mg to 300 mg [place] juice. Unsweetened, fresh or frozen 1/2 cup, 200 mg to 300 mg Pineapple juice. Unsweetened 1 cup, 300 mg to 400 mg Prune juice. Unsweetened 1/2 cup, 300 mg to 400 mg* Prunes. Dried 5 pieces, 300 mg to 400 mg* Strawberries. Fresh or frozen 1 cup, 200 mg to 300 mg Meat Red meat. Cooked 3 ounces, 100 mg to 300 mg Seafood Cod, flounder, halibut. Cooked 3 ounces, 100 mg to 300 mg* [place]. Cooked, 3 ounces 300 mg to 400 mg* Scallops. Cooked 3 ounces, 200 mg to 300 mg* Shrimp. Cooked 3/4 cup, 100 mg to 200 mg Tuna. Fresh or canned 3/4 cup, 200 mg to 500 mg Last Reviewed Date: 08/04/202219999707-3893 [employer]. All rights reserved. This information is not intended as a substitute for professional medical care. Always follow your healthcare professional's instructions. * Pt Handout (on AVS) - Josafat Finney CRNP - 01/27/2024 2:48 AM EDT [id number] Discharge Instructions for Hypokalemia You have been diagnosed with hypokalemia. This means you have a low level of potassium in your blood. Potassium helps your nerve and muscle cells work as they should. These cells include the cells inyour heart. A low level of potassium in the blood can cause serious problems, such as abnormal heart rhythms and even a heart attack. Diet changes Eat more potassium-rich foods such as: Bananas Oranges and orange juice Tomatoes, tomato sauce, and tomato juice Leafy green vegetables, such as spinach, kale, salad greens, collards, and chard Melons (all kinds) Pomegranates Peas Beans Potatoes Sweet potatoes Avocados, including guacamole Vegetable juices, such as V8 Fruit juices All nuts and seeds Fish, including tuna, halibut, salmon, cod, snapper, seymour, swordfish, and perch Milk, including fat-free, low-fat, whole, chocolate, and buttermilk Soy milk Other home care Take a potassium supplement as directed by your healthcare provider. After heavy exercise or any activity that causes you to sweat a lot, grab a beverage high in potassium. This includes chocolate milk, coconut water, orange juice, or low-sodium vegetable juices. Be sure to eat foods or drink fluids with potassium if you have diarrhea or vomiting. Have your potassium levels checked regularly as directed. Take all medicines exactly as directed. Tell your healthcare provider about all prescription and vtia-gfk-qsfivcc medicines you are taking. This includes herbal products. Some water pills (diuretics) can cause you to lose potassium. Don't have foods that are high in salt. Pass up canned and prepared foods that are high in salt. Follow-up Make a follow-up appointment as directed by our staff. Keep all follow-up appointments. Your healthcare provider needs to monitor your condition closely. When to call your healthcare provider Call your provider right away or go to the emergency room if you have any of the following: Vomiting Fatigue Diarrhea Rapid, irregular heartbeat Shortness of breath Chest pain Muscle cramps, spasms, or twitching Weakness Paralysis Last Reviewed Date: 08/04/202219990931-5066 [employer]. All rights reserved. This information is not intended as a substitute for professional medical care. Always follow your healthcare professional's instructions. * Pt Handout (on AVS) - Josafat Finney CRNP - 01/27/2024 2:48 AM EDT [id number] Hypokalemia Hypokalemia means a low level of potassium in the blood. This most often occurs in people who take water pills (diuretics). It can also result from severe vomiting or diarrhea. You may also have it if you take laxatives for long periods of time. It sometimes happens if you have low magnesium (hypoma gnesemia). If you have this, your healthcare provider will treat the low magnesium first. A mild case of hypokalemia often causes no symptoms. It is only found with blood testing. More severe potassium loss causes: Overall weakness Muscle or stomach cramps Rapid or irregular heartbeats (heart palpitations) Low blood pressure Muscle weakness Short-term paralysis in some people Home care Take any potassium supplements as prescribed. Eat foods rich in potassium. High amounts of potassium are found in baked potatoes, baked sweet potatoes, spinach, cantaloupe, cod, halibut, salmon, and scallops. White, red, or ray beans are also very good sources. So are avocados, orange juice, bananas, and tomato juice. If you take certain types of diuretics, you will also need to take potassium supplements. Talk with your healthcare provider. Follow-up care Follow up with your healthcare provider for a repeat blood test within the next week, or as advisedby our staff. When to get medical advice Call your healthcare provider right away if you have: Increased weakness, fatigue, or muscle cramps Dizziness Call 911 Call 911 if you have: Irregular heartbeat, extra beats, or very fast heart rate Loss of consciousness Last Reviewed Date: 08/04/202219995286-1212 [employer]. All rights reserved. This information is not intended as a substitute for professional medical care. Always follow your healthcare professional's instructions. documented in this encounter Plan of Treatment Upcoming Encounters Date Type Department Care Team (Latest Contact Info) Description 04/30/2024 9:27 AM EDT Hospital Encounter OR [facility], Operating Room, [facility] - 4th Floor [address] [address] Bryce Reece, DO [address] [place] [id number] 04/30/2024 9:27 AM EDT - 04/30/2024 10:14 AM EDT Surgery OR [facility], Operating Room, [facility] - 4th Floor [address] [address] Bryce Reece, [address] [place] [id number] COLONOSCOPY FLEXIBLE PROXIMAL DIAGNOSTIC Pending Results Name Type Priority Associated Diagnoses Date /Time GASTROINTESTINAL PATHOGEN PANEL, STOOL Lab Routine 01/27/2024 9:17 AM EDT GASTROINTESTINAL PATHOGEN PANEL CULTURE Lab Routine 01/27/2024 9:17 AM EDT CULTURE, URINE, QUANTITATIVE Lab STAT 01/27/2024 2:48 AM EDT METHYLMALONIC ACID, SERUM Lab Routine 01/28/2024 5:11 AM EDT HOMOCYSTEINE Lab Routine 01/28/2024 5 :11 AM EDT Scheduled Orders Name Type Priority Associated Diagnoses Orde r Schedule GASTROINTESTINAL PATHOGEN PANEL, STOOL Lab Routine One Time for 1 Occurrences starting 01/26/2024 until 01/26/2024 CULTURE, URINE, QUANTITATIVE Lab STAT One Time for 1 Occurrences starting 01/27/2024 until 01/27/2024 METHYLMALONIC ACID, SERUM Lab Routine One Time for 1 Occurrences starting 01/28/2024 until 01/28/2024 HOMOCYSTEINE Lab Routine One Time for 1 Occurrences starting 01/28/2024 until 01/28/2024 Scheduled Procedures Name Priority Associated Diagnoses Date/Ti [...] - 19+ 3-dose series) 1995 HPV/Co-Test 2006 Cervical Cancer Screening 05/26/2019 Pap Smear 05/26/2019 05/26/2016, 04/04, 04/15/2014, Additional history exists Mammogram 04/22/2021 04/22/2020, 08/04, 07/24/2018, Additional history exists Cologuard 2021 Fecal Occult Blood Test 2021 Sigmoidoscopy 2021 COVID-19 Vaccine (2022- season) 2023 Influenza Vaccine (FLU shot) (Season [...] Associated Diagnosis Comments BASIC METABOLIC PANEL Routine 01/28/2024 5:11 AM EDT CBC Routine 01/28/2024 5:11 AM EDT MAGNESIUM Routine 01/28/2024 5:11 AM EDT BASIC METABOLIC PANEL Routine 01/27/2024 11:34 AM EDT GASTROINTESTINAL PATHOGEN PANEL CULTURE Routine 01/27/2024 9:17 AM EDT GASTROINTESTINAL PATHOGEN PANEL PCR Routine 01/27/2024 9:17 AM EDT CLOSTRIDIUM DIFFICILE, PCR Routine 01/27/2024 9:17 AM EDT URINE SCREEN, POINT OF CARE (ENTER/EDIT) STAT 01/27/2024 4:19 AM EDT IRON SCREEN, INCLUDING TIBC Add-on 01/27/2024 3:13 AM EDT POTASSIUM STAT 01/27/2024 3:13 AM EDT PHOSPHORUS Add-on 01/27/2024 3:13 AM EDT MAGNESIUM Add-on 01/27/2024 3:13 AM EDT FERRITIN Add-on 01/27/2024 3:13 AM EDT VITAMIN B12 Add-on 01/27/2024 3:13 AM EDT URINALYSIS, REFLEX TO CULTURE STAT 01/27/2024 2:48 AM EDT URINALYSIS, REFLEX TO CULTURE (CUP ONLY) STAT 01/27/2024 2:48 AM EDT URINALYSIS, REFLEX TO CULTURE (NOT FOR NEUTROPENIC PATIENTS) STAT 01/27/2024 2:48 AM EDT EXTRA LIGHT BLUE TOP STAT 01/26/2024 11:08 PM EDT DIFFERENTIAL, AUTOMATED STAT 01/26/20 11:08 PM EDT PROCALCITONIN Add-on 01/26/2024 11:08 PM EDT CRP (INFLAMMATORY MARKER) Add-on 01/26/2024 11:08 PM EDT BETA-HCG, QUANTITATIVE STAT 11:08 PM EDT COMPREHENSIVE METABOLIC PANEL STAT 01/26/2024 11:08 PM EDT CBC STAT 01/26/2024 11:08 PM EDT LIPASE STAT 01/26/2024 11:08 PM EDT CBC STAT 01/26/2024 11:08 PM EDT documented in this encounter Results * MAGNESIUM (01/28/2024 5:11 AM EDT) Magnesium 1.9 1.5 - 2.6 mg/dL 01/28/2024 6:05 AM EDT [facility] Blood Venous blood specimen / Unknown Venipuncture / Unknown 01/28/2024 5:11 AM EDT 01/28/2024 5:35 AM EDT Sybil Tripp DO LAB BLOOD ORDERABLES LABORATORY GL [address] [place] [address] * (ABNORMAL) BASIC METABOLIC PANEL (01/28/2024 5:11 AM EDT) BUN 9 6 - 20 mg/dL 01/28/2024 6:05 AM EDT [facility] Creatinine 0.7 0.5 - 1.0 mg/dL 01/28/2024 6:05 AM EDT [facility] Estimated Glomerular Filtration Rate >90 >=60 mL/min 01/28/2024 6:05 AM EDT [facility] Comment:eGFR is calculated b ased on the CKD-EPI 2020 equation Sodium 142 135 - 146 mmol/L 01/28/2024 6:05 AM EDT [facility] Potassium 4.3 3.5 - 5.1 mmol/L 01/28/2024 6:05 AM EDT [facility] Chloride 111(H) 98 - 107 mmol/L 01/28/2024 6:05 AM EDT [facility] CO2 23 22 - 32 mmol/L 01/28/2024 6:05 AM EDT LABORATORY [facility] Anion Gap 8 7 - 15 mmol/L 01/28/2024 6:05 AM EDT LABORATORY [facility] Glucose 102 70 - 120 mg/dL 01/28/2024 6:05 AM EDT LABORATORY [facility] Calcium 8.4 8.4 - 10.2 mg/dL 01/28/2024 6:05 AM EDT LABORATORY [facility] Blood Venous blood specimen / Unknown Venipuncture / Unknown 01/28/2024 5:11 AM EDT 01/28/2024 5:35 AM EDT Gary Benton PA-C LAB BLOOD ORDERABLES LABORATORY [address] [address] * (ABNORMAL) CBC (01/28/2024 5:11 AM EDT) WBC 7.69 4.00 - 10.80 K/uL 01/28/2024 5:52 AM EDT LABORATORY [facility] RBC 3.61 3.85 - 5.15 M/uL 01/28/2024 5:52 AM EDT LABORATORY [facility] HGB 11.1(L) 12.0 - 15.3 g/dL 01/28/2024 5:52 AM EDT LABORATORY [facility] HCT 33.3(L) 36.0 - 45.2 % 01/28/2024 5:52 AM EDT LABORATORY [facility] MCV 92.2 81.5 - 97.5 fL 01/28/2024 5:52 AM EDT LABORATORY [facility] MCH 30.7 27.0 - 34.0 pg 01/28/2024 5:52 AM EDT LABORATORY [facility] MCHC 33.3 32.0 - 36.0 g/dL 01/28/2024 5:52 AM EDT LABORATORY [facility] RDW 12.8 11.5 - 15.5 % 01/28/2024 5:52 AM EDT LABORATORY [facility] PLT 311 140 - 400 K/uL 01/28/2024 5:52 AM EDT LABORATORY [facility] MPV 9.1 6.6 - 11.1 fL 01/28/2024 5:52 AM EDT LAB[facility] nRBCs 0 <=0 /100 WBCs 01/28/2024 5:52 AM EDT [facility] Blood Venous blood specimen / Unknown Venipuncture / Unknown 01/28/2024 5:11 AM EDT 01/28/2024 5:35 AM EDT Gary Benton PA-C LAB BLOOD ORDERABLES LABORATORY GL [address] [place] [address] * (ABNORMAL) BASIC METABOLIC PANEL (01/27/2024 11:34 AM EDT) BUN 9 6 - 20 mg/dL 01/27/2024 11:58 AM EDT LAB[facility] Creatinine 0.7 0.5 - 1.0 mg/dL 01/27/2024 11:58 AM EDT [facility] Estimated Glomerular Filtration Rate >90 >=60 mL/min 01/27/2024 11:58 AM EDT [facility] Comment:eGFR is calculated b ased on the CKD-EPI 2020 equation Sodium 142 135 - 146 mmol/L 01/27/2024 11:58 AM EDT [facility] Potassium 4.5 3.5 - 5.1 mmol/L 01/27/2024 11:58 AM EDT [facility] Chloride 115(H) 98 - 107 mmol/L 01/27/2024 11:58 AM EDT [facility] CO2 20(L) 22 - 32 mmol/L 01/27/2024 11:58 AM EDT [facility] Anion Gap 7 7 - 15 mmol/L 01/27/2024 11:58 AM EDT [facility] Glucose 105 70 - 120 mg/dL 01/27/2024 11:58 AM EDT [facility] Calcium 8.4 8.4 - 10.2 mg/dL 01/27/2024 11:58 AM EDT [facility] Blood Venous blood specimen / Unknown Venipuncture / Unknown 01/27/2024 11:34 AM EDT 01/27/2024 11:38 AM EDT Gary Benton PA-C LAB BLOOD ORDERABLES LABORATORY [facility] [address] [place] [address] * GASTROINTESTINAL PATHOGEN PANEL PCR (01/27/2024 9:17 AM EDT) Campylobacter group by PCR Negative Negative 01/27/2024 7:49 PM EDT [facility] Salmonella species by PCR Negative Negative 01/27/2024 7:49 PM EDT LAB[facility] Shigella species by PCR Negative Negative 01/27/2024 7:49 PM EDT [facility] Vibrio group by PCR Negative Negative 01/27/2024 7:49 PM EDT [facility] Yersinia enterocolitica by PCR Negative Negative 01/27/2024 7:49 PM EDT [facility] Shiga Toxin 1 Gene by PCR Negative Negative 01/27/2024 7:49 PM EDT [facility] Shiga Toxin 2 Gene by PCR Negative Negative 01/27/2024 7:49 PM EDT [facility] Norovirus by PCR Negative Negative 01/27/20 7:49 PM EDT [facility] Rotavirus by PCR Negative Negative 01/27/20 7:49 PM EDT [facility] Stool Stool specimen / Unknown Non-blood Collection / Unknown 01/27/2024 9:17 AM EDT 01/27/2024 9:22 AM EDT Josafat DOZIER LAB MICRO - GENERA L ORDERABLES [facility] [address] [place] [address] * CLOSTRIDIUM DIFFICILE, PCR (01/27/2024 9:17 AM EDT) Stool Consistency Liquid 01/27/2024 10:16 AM EDT LABORATORY [facility] Clostridium difficile Result Negative. No C. difficile toxin B gene DNA detected by PCR (Amplified Probe). Negative 01/27/2024 10:16 AM EDT LABORATORY [facility] Stool Stool specimen / Unknown Non-blood Collection / Unknown 01/27/2024 9:17 AM EDT 01/27/2024 9:26 AM EDT Gary Benton PA-C LAB MICRO - GENERAL ORDERABLES LABORATORY [facility] [address] [place] [address] * URINE SCREEN, POINT OF CARE (ENTER/EDIT) (01/27/2024 4:19 AM EDT) hCG Beta, Urine Negative Procedural Control Valid? Urine Josafat DOZIER LAB POINT OF CARE TEST ENTER/EDIT ORDERABLES * (ABNORMAL) FERRITIN (01/27/2024 3:13 AM EDT) Ferritin 151(H) 13 - 150 ng/mL 01/27/2024 1:35 PM EDT [facility] Comment:Postmenopausal women have higher ferritin levels than pre-menopausal women. The above reference interval is based on pre-menopausal women. Blood Venous blood specimen / Unknown Venipuncture / Unknown 01/27/2024 3:13 AM EDT 01/27/2024 3:16 AM EDT Soo Weldon MD LAB BLOOD ORDERABLES [facility] [address] [place] [address] * (ABNORMAL) IRON SCREEN, INCLUDING TIBC (01/27/2024 3:13 AM EDT) Iron 51 33 - 151 ug/dL 01/27/2024 1:01 PM EDT [facility] Iron Binding Capacity 209(L) 250 - 425 ug/dL 01/27/2024 1:01 PM EDT [facility] Transferrin Saturation Percent 24 15 - 55 % 01/27/2024 1:01 PM EDT LABORATORY [facility] Blood Venous blood specimen / Unknown Venipuncture / Unknown 01/27/2024 3:13 AM EDT 01/27/2024 3:16 AM EDT Soo Weldon MD LAB BLOOD ORDERABLES Performing Organization Address City/[facility]/ZIP Co de Phone Number LABORATORY [facility] [address] [place] [address] * VITAMIN B12 (01/27/2024 3:13 AM EDT) Vitamin B12 255 232 - 1,245 pg/mL 01/27/2024 1:35 PM EDT [facility] Blood Venous blood specimen / Unknown Venipuncture / Unknown 01/27/2024 3:13 AM EDT 01/27/2024 3:16 AM EDT Gary Benton PA-C LAB BLOOD ORDERABLES Performing Organization Address [facility] Co de Phone Number LAB[facility]ATORY [facility] [address] [place] [address] * PHOSPHORUS (01/27/2024 3:13 AM EDT) Phosphorus 2.5 2.5 - 4.8 mg/dL 01/27/2024 4:28 AM EDT LABORATORY [facility] Blood Venous blood specimen / Unknown Venipuncture / Unknown 01/27/2024 3:13 AM EDT 01/27/2024 3:16 AM EDT Oscar Saavedra MD LAB BLOOD ORDER MATHIEU LABORATORY [address] [address] * MAGNESIUM (01/27/2024 3:13 AM EDT) Magnesium 1.8 1.5 - 2.6 mg/dL 01/27/2024 4:28 AM EDT LABORATORY [facility] Blood Venous blood specimen / Unknown Venipuncture / Unknown 01/27/2024 3:13 AM EDT 01/27/2024 3:16 AM EDT Oscar Saavedra MD LAB BLOOD ORDER MATHIEU Performing Organization Address City/[facility]/ZIP Co de Phone Number LABORATORY [facility] [address] [place] [address] * (ABNORMAL) POTASSIUM (01/27/2024 3:13 AM EDT) Potassium 2.7(L) 3.5 - 5.1 mmol/L 01/27/2024 3:35 AM EDT LABORATORY GL Blood Venous blood specimen / Unknown Venipuncture / Unknown 01/27/2024 3:13 AM EDT 01/27/2024 3:16 AM EDT Josafat DOZIER LAB BLOOD ORDERABL ES Performing Organization Address [facility] Co de Phone Number LABORATORY [address] [phone] * (ABNORMAL) URINALYSIS, REFLEX TO CULTURE (01/27/2024 2:48 AM EDT) Color, Urine Yellow Light Yellow, Yellow, Dark Yellow 01/27/2024 3:09 AM EDT [facility] Clarity, Urine Slightly Cloudy(A) Clear 01/27/2024 3:09 AM EDT [facility] Glucose, Urine Negative Negative mg/dL 01/27/2024 3:09 AM EDT [facility] Bilirubin, Urine Negative Negative 01/27/2024 3:09 AM EDT LAB[facility] Ketone, Urine Negative Negative mg/dL 01/27/2024 3:09 AM EDT LAB[facility]ATORY [facility] Specific [place], Urine 1.023 1.003 - 1.030 01/27/2024 3:09 AM EDT LAB[facility] Blood, Urine Negative Negative 01/27/2024 3:09 AM EDT LAB[facility] pH, Urine 6.0 5.0 - 7.5 Units 01/27/2024 3:09 AM EDT [facility] Protein, Urine Trace(A) Negative mg/dL 01/27/2024 3:09 AM EDT LAB[facility] Urobilinogen, Urine 0.2 0.2, 1.0 mg/dL 01/27/2024 3:09 AM EDT LAB[facility] Nitrite, Urine Negative Negative 01/27/2024 3:09 AM EDT LABORATORY GL Esterase, Urine Small(A) Negative 01/27/2024 3:09 AM EDT LABORATORY GL RBC, Urine 0-2 0 - 2 /HPF 01/27/2024 3:09 AM EDT LAB[facility] WBC, Urine 6-9(A) 0 - 2 /HPF 01/27/2024 3:09 AM EDT LABORATORY GL Bacteria, Urine 51-100(A) 0 - 25 /HPF 01/27/2024 3:09 AM EDT LAB[facility] Mucus, Urine Many(A) None /HPF 01/27/2024 3:09 AM EDT LAB[facility] Yeast, Urine Present(A) None /HPF 01/27/2024 3:09 AM EDT LABORATORY GL Culture, Urine 01/27/2024 3:09 AM EDT [facility] Comment:Quantitative urine c ulture to be performed Urine Urine specimen obtained by clean catch procedure / Unknown Non-blood Collection / Unknown 01/27/2024 2:48 AM EDT 01/27/2024 2:56 AM EDT [facility] URINE ORDERABLE S Performing Organization Address City/[facility]/ZIP Co de Phone Number LABORATORY [address] [address] * URINALYSIS, REFLEX TO CULTURE (CUP ONLY) (01/27/2024 2:48 AM EDT) Urinalysis, Reflex to Culture Specimen Specimen collected and received 01/27/2024 4:01 AM EDT LABORATORY [facility] Urine Urine specimen obtained by clean catch procedure / Unknown Non-blood Collection / Unknown 01/27/2024 2:48 AM EDT 01/27/2024 2:55 AM EDT Luís [facility] LAB URINE ORDERABLE S Performing Organization Address City/[facility]/ZIP Co de Phone Number LABORATORY [address] [address] * PROCALCITONIN (01/26/2024 11:08 PM EDT) Pathologist [facility] Procalcitonin 0.07 <0.10 ng/mL 01/26/2024 11:42 PM EDT LABORATORY [facility] Blood Venous blood specimen / Unknown Venipuncture / Unknown 01/26/2024 11:08 PM EDT 01/26/2024 11:16 PM EDT Narrative LABORATORY GL - 01/26/2024 11:42 PM EDT Less than 0.5 ng/mL: Low risk for progression to sepsis. Review patients condition for localized infections. 0.5 to 2.0 ng/mL: Intermediate risk for progresion to sepsis. Review underlying conditions. Recommend repeat PCT after 6 hours has elapsed. Greater than 2.0 ng/mL: high risk for progression to sepsis unless other causes are known. [facility]L ES Performing Organization Address [facility] de Phone Number LABORATORY [address] [phone] * CRP (INFLAMMATORY MARKER) (01/26/2024 11:08 PM EDT) [facility] CRP (Inflammatory Marker) 5 <=5 mg/L 01/27/2024 1:16 AM EDT LABORATORY [facility] Blood Venous blood specimen / Unknown Venipuncture / Unknown 01/26/2024 11:08 PM EDT 01/26/2024 11:16 PM EDT [facility] ES Performing Organization Address City/[facility]/ZIP Co de Phone Number LABORATORY [address] [address] * DIFFERENTIAL, AUTOMATED (01/26/2024 11:08 PM EDT) [facility] WBC 9.54 4.00 - 10.80 K/uL 01/26/2024 11:18 PM EDT LABORATORY [facility] Neutrophils % 57.1 40.0 - 75.0 % 01/26/2024 11:18 PM EDT LABORATORY GL Lymphocytes % 34.6 18.0 - 42.0 % 01/26/2024 11:18 PM EDT LAB[facility]ORY [facility] Monocytes % 7.2 1.0 - 11.0 % 01/26/2024 11:18 PM EDT LAB[facility]ATORY [facility] Eosinophils % 0.4 0.0 - 6.0 % 01/26/2024 11:18 PM EDT LABORATORY GL Basophils % 0.4 0.0 - 2.0 % 01/26/2024 11:18 PM EDT LABORATORY GL Immature Granulocytes % 0.3 0.0 - 2.0 % 01/26/2024 11:18 PM EDT LABORATORY GL Absolute Neutrophils 5.44 1.80 - 7.70 K/uL 01/26/2024 11:18 PM EDT LABORATORY GL Absolute Lymphocytes 3.30 1.00 - 4.80 K/ul 01/26/2024 11:18 PM EDT LABORATORY GL Absolute Monocytes 0.69 0.00 - 1.10 K/uL 01/26/2024 11:18 PM EDT LABORATORY GL Absolute Eosinophils 0.04 0.00 - 0.70 K/uL 01/26/2024 11:18 PM EDT LABORATORY GL Absolute Basophils 0.04 0.00 - 0.20 K/uL 01/26/2024 11:18 PM EDT LABORATORY GL Absolute Immature Granulocytes 0.03 0.00 - 0.20 K/uL 01/26/2024 11:18 PM EDT LABORATORY GL Blood Venous blood specimen / Unknown Venipuncture / Unknown 01/26/2024 11:08 PM EDT 01/26/2024 11:16 PM EDT Luís Kern LAB BLOOD ORDERABLE S LABORATORY [facility] [address] [place] [address] * (ABNORMAL) CBC (01/26/2024 11:08 PM EDT) WBC 9.54 4.00 - 10.80 K/uL 01/26/2024 11:18 PM EDT LABORATORY GL RBC 5.12 3.85 - 5.15 M/uL 01/26/2024 11:18 PM EDT LABORATORY GL HGB 16.2(H) 12.0 - 15.3 g/dL 01/26/2024 11:18 PM EDT LABORATORY [facility] HCT 44.4 36.0 - 45.2 % 01/26/2024 11:18 PM EDT LABORATORY [facility] MCV 86.7 81.5 - 97.5 fL 01/26/2024 11:18 PM EDT LABORATORY [facility] MCH 31.6 27.0 - 34.0 pg 01/26/2024 11:18 PM EDT LABORATORY [facility] MCHC 36.5 32.0 - 36.0 g/dL 01/26/2024 11:18 PM EDT LABORATORY [facility] RDW 12.4 11.5 - 15.5 % 01/26/2024 11:18 PM EDT LABORATORY [facility] PLT 473(H) 140 - 400 K/uL 01/26/2024 11:18 PM EDT LABORATORY [facility] MPV 8.8 6.6 - 11.1 fL 01/26/2024 11:18 PM EDT LABORATORY [facility] nRBCs 0 <=0 /100 WBCs 01/26/2024 11:18 PM EDT LABORATORY [facility] Blood Venous blood specimen / Unknown Venipuncture / Unknown 01/26/2024 11:08 PM EDT 01/26/2024 11:16 PM EDT Luís Kern LAB BLOOD ORDERABLE S LABORATORY [facility] [address] [place] [address] * (ABNORMAL) BETA-HCG, QUANTITATIVE (01/26/2024 11:08 PM EDT) Beta-HCG, Quantitative 3.9(H) <=1.0 mIU/mL 01/26/2024 11:42 PM EDT LABORATORY [facility] Blood Venous blood specimen / Unknown Venipuncture / Unknown 01/26/2024 11:08 PM EDT 01/26/2024 11:16 PM EDT Narrative LABORATORY GL - 01/26/2024 11:42 PM EDT hCG can serve as a [...] for postmenopausal women is <= 7 mIU/mL. [facility] LAB BLOOD ORDERABLE S Performing Organization Address [facility] Co de Phone Number LABORATORY [address] [phone] * EXTRA LIGHT BLUE TOP (01/26/2024 11:08 PM EDT) Blood Venous blood specimen / Unknown Venipuncture / Unknown 01/26/2024 11:08 PM EDT 01/26/2024 11:16 PM EDT [facility] LAB BLOOD ORDERABLE S Performing Organization Address [facility] de Phone Number LABORATORY [address] [address] * LIPASE (01/26/2024 11:08 PM EDT) Lipase 35 13 - 60 U/L 01/26/2024 11:34 PM EDT LABORATORY [facility] Blood Venous blood specimen / Unknown Venipuncture / Unknown 01/26/2024 11:08 PM EDT 01/26/2024 11:16 PM EDT [facility] LAB BLOOD ORDERABLE S Performing Organization Address [facility] de Phone Number LABORATORY [address] [address] * (ABNORMAL) COMPREHENSIVE METABOLIC PANEL (01/26/2024 11:08 PM EDT) BUN 13 6 - 20 mg/dL 01/26/2024 11:34 PM EDT LABORATORY GL Creatinine 0.8 0.5 - 1.0 mg/dL 01/26/2024 11:34 PM EDT LABORATORY GL Estimated Glomerular Filtration Rate >90 >=60 mL/min 01/26/2024 11:34 PM EDT LABORATORY [facility] Comment:eGFR is calculated b ased on the CKD-EPI 2020 equation Sodium 139 135 - 146 mmol/L 01/26/2024 11:34 PM EDT LABORATORY [facility] Potassium 2.7(L) 3.5 - 5.1 mmol/L 01/26/2024 11:34 PM EDT LABORATORY [facility] Chloride 98 98 - 107 mmol/L 01/26/2024 11:34 PM EDT LAB[facility]ATORY [facility] CO2 28 22 - 32 mmol/L 01/26/2024 11:34 PM EDT LAB[facility]ATORY [facility] Anion Gap 13 7 - 15 mmol/L 01/26/2024 11:34 PM EDT LAB[facility]ATORY [facility] Glucose 119 70 - 120 mg/dL 01/26/2024 11:34 PM EDT LAB[facility]ATORY [facility] Albumin 4.7 3.8 - 5.0 g/dL 01/26/2024 11:34 PM EDT LABORATORY [facility] AST 20 10 - 35 U/L 01/26/2024 11:34 PM EDT LABORATORY [facility] Alkaline Phosphatase 141(H) 35 - 130 U/L 01/26/2024 11:34 PM EDT LAB[facility]ATORY [facility] Bilirubin, Total 0.3 <=1.2 mg/dL 01/26/2024 11:34 PM EDT LAB[facility]ATORY [facility] Calcium 10.0 8.4 - 10.2 mg/dL 01/26/2024 11:34 PM EDT LAB[facility]ATORY [facility] Protein 8.0 6.0 - 8.3 g/dL 01/26/2024 11:34 PM EDT LABORATORY [facility] ALT 13 10 - 35 U/L 01/26/2024 11:34 PM EDT LAB[facility]ATORY [facility] Blood Venous blood specimen / Unknown Venipuncture / Unknown 01/26/2024 11:08 PM EDT 01/26/2024 11:16 PM EDT Luís Kern DO LAB BLOOD ORDERABLE S LABORATORY [facility] [address] [place] [address] documented in this encounter Visit Diagnoses Diagnosis Hypokalemia- Primary Hypopotassemia Abdominal pain Abdominal pain, unspecified site Hypokalemia Hypopotassemia Abnormal EKG Nonspecific abnormal electrocardiogram (ECG) (EKG) Chest pain Chest pain, unspecified Nausea, vomiting and diarrhea Diarrhea Esophageal reflux History of colonic polyps Personal history of colonic polyps Colitis Other and unspecified noninfectious gastroenteritis and colitis Nausea and vomiting Nausea with vomiting documented in this encounter Administered Medications Inactive Administered Medications - up to 3 most recent administrations Medication Order MAR Action Action Date Dose Rate Site Acetaminophen (Tylenol) tab 650 mg 650 mg, Oral, Q6H PRN Pain, Mild, Fever >38C(100.5F), Headache, Starting on Mon01/27/24 at 0522, Until 01/28/24 at 1402, Maximum of 4 grams (4000 mg) per day. Bisacodyl (Dulcolax) supp 10 mg 10 mg, Rectal, DAILY PRN Constipation, Starting on Mon01/30/24 at 0442, Until 01/28/24 at 1402, Administer if no bowel movement within past 72 hours and patient unable to take oral medications. Bisacodyl (Dulcolax) tab 5 mg 5 mg, Oral, DAILY PRN Constipation, Starting on Mon01/30/24 at 0442, Until 01/28/24 at 1402, Administer in addition to polyethylene glycol and senna-docusate if no bowel movement in past 72 hours. calcium CARBonate (Tums E-X) tab CHEW 1,500 mg 1,500 mg, Oral, Daily(AM), First dose on [facility] 01/27/24 at 0900, Until Discontinued Given 01/28/2024 8:51 AM EDT 1,500 mg Given 01/27/2024 7:59 AM EDT 1,500 mg clonazePAM (KlonoPIN) tab 1 mg 1 mg, Oral, BID (.AM/PM), First dose on Mon01/27/24 at 0900, Until Discontinued Given 01/28/2024 8:51 AM EDT 1 mg Given 01/27/2024 8:37 PM EDT 1 mg Given 01/27/2024 8:00 AM EDT 1 mg CYANOCOBALAMIN (vitamin B-12) tab 1,000 mcg 1,000 mcg, Oral, Daily(AM), First dose on [facility] 01/27/24 at 0930, Until Discontinued Given 01/28/2024 8:51 AM EDT 1,00 0 mcg Given 01/27/2024 10:04 AM EDT 1,000 mcg Desvenlafaxine Succinate ER (Pristiq) tab 100 mg 100 mg, Oral, Daily(AM), First dose on 01/27/24 at 0900, Until Discontinued, Swallow tablet whole; do not crush, chew, divide, or dissolve. Given 01/28/2024 8:58 AM EDT 100 mg Given 01/27/2024 10:16 AM EDT 100 mg diphenhydrAMINE (Benadryl) inj 25 mg 25 mg, Intravenous, ONCE, On 01/27/24 at 0000, For 1 dose Given 01/26/2024 11:37 PM EDT 25 mg linaCLOtide (Linzess) cap 288 mcg 288 mcg, Oral, BEFORE BREAKFAST, First dose on 01/27/24 at 0745, Until Discontinued Given 01/28/2024 6:31 AM ED T 288 mcg Given 01/27/2024 8:00 AM EDT 288 mcg loperamide (Imodium) cap 2 mg 2 mg, Oral, Q6H PRN Diarrhea, Starting on 01/27/24 at 1039, Until 01/28/24 at 1402, Maximum of 16 mg per day recommended melatonin tab 3 mg 3 mg, Oral, HS PRN Insomnia, Starting on 01/27/24 at 0442, Until 01/28/24 at 1402 Given 01/27/2024 8:37 PM EDT 3 mg metoclopramide (Reglan) inj 10 mg 10 mg, IV Push, Q6H, First dose on 01/27/24 at 0000, Until Discontinued Given 01/28/2024 6:31 AM EDT 10 mg Given 01/27/2024 6:39 PM EDT 10 mg Given 01/27/2024 11:23 AM EDT 10 mg NSS 0.9% 1,000 mL bolus infusion Intravenous, at 1,000 mL/hr Administer over 60 Minutes, Administer entire volume within 60 minutes or less., ONCE, 1 dose, On 01/27/24 at 0000 New Bag 01/27/2024 12:00 AM EDT 1,000 mL 1000 mL/hr NSS infusion Intravenous, at 75 mL/hr, CONTINUOUS, Starting on 01/27/24 at 0930, Until 01/27/24 at 1929 New Bag 01/27/2024 9:30 AM EDT 75 mL/hr omeprazole (PriLOSEC) cap 40 mg 40 mg, Oral, Daily(AM), First dose on [facility] 01/27/24 at 0900, Until Discontinued Given 01/28/2024 8:51 AM EDT 40 mg Given 01/27/2024 8:00 AM EDT 40 mg Polyethylene Glycol 3350 (Miralax) oral powder 17 g 17 g (1 Packet), Oral, DAILY PRN Constipation, Starting on 01/27/24 at 0442, Until 01/28/24 at 1402, Administer if no bowel movement within past 24 hours. potassium chloride 10 mEq in 100 mL ivpb LOCKED DOSE 10 mEq, Peripheral IV, Q1H, 3 doses, First dose on [facility] 01/27/24 at 0200, Last dose on [facility] 01/27/24 at 0400, Administer over 60 Minutes, Standard infusion duration is 60 minutes. New Bag 01/27/2024 1:13 AM EDT 10 mEq 100 mL/hr potassium chloride 10 mEq in 100 mL ivpb LOCKED DOSE 10 mEq, Peripheral IV, ONCE, 1 dose, On [facility] 01/27/24 at 0500, Administer over 60 Minutes, Standard infusion duration is 60 minutes. Restarted 01/27/2024 5:30 AM EDT 10 mEq/hr 100 mL/hr New Bag 01/27/2024 4:48 AM EDT 10 mEq 100 mL/hr potassium chloride ER tab 30 mEq 30 mEq, Oral, ONCE, On [facility] 01/27/24 at 0130, For 1 dose, This med should NOT be Crushed or Chewed Given 01/27/2024 1:14 AM EDT 30 mEq potassium chloride ER tab 30 mEq 30 mEq, Oral, BID (.AM/PM), First dose on [facility] 01/27/24 at 0900, Until Discontinued, This med should NOT be Crushed or Chewed Given 01/28/2024 8:51 AM EDT 30 mEq Given 01/27/2024 8:37 PM EDT 30 mEq Given 01/27/2024 8:00 AM EDT 30 mEq potassium chloride ER tab 40 mEq 40 mEq, Oral, ONCE, On [facility] 01/27/24 at 0500, For 1 dose, This med should NOT be Crushed or Chewed Given 01/27/2024 4:37 AM EDT 40 mEq potassium chloride ER tab 40 mEq 40 mEq, Oral, ONCE, On 01/27/24 at 0700, For 1 dose, This med should NOT be Crushed or Chewed Given 01/27/2024 6:37 AM EDT 40 mEq QUEtiapine (SEROquel) tab 200 mg 200 mg, Oral, QHS, First dose (after last modification) on 01/27/24 at 2200, Until Discontinued Given 01/27/2024 8:37 PM EDT 200 mg senna-docusate (Senokot-S) 1 Tablet 1 Tablet, Oral, BID PRN Constipation, Starting on 01/29/24 at 0442, Until 01/28/24 at 1402, Administer in addition to polyethylene glycol if no bowel movement within past 48 hours. documented in this encounter Active and Recently Administered Medications Times are shown in EDT. Scheduled Medication Order 01/26/2024 01/27/2024 01/28/2024 calcium CARBonate (Tums E-X) tab CHEW 1,500 mg 1,500 mg, Oral, Daily(AM), First dose on 01/27/24 at 0900, Until Discontinued 0759 (Given - Provider: Sita Patricio LPN) 0851 (Given - Provider: Sita Patricio LPN) clonazePAM (KlonoPIN) tab 1 mg 1 mg, Oral, BID (.AM/PM), First dose on 01/27/24 at 0900, Until Discontinued 0800 (Given - Provider: Sita Patricio LPN)2036 (Given - Provider: Etelvina Cardona RN) 0851 (Given - Provider: Sita Patricio LPN) CYANOCOBALAMIN (vitamin B-12) tab 1,000 mcg 1,000 mcg, Oral, Daily(AM), First dose on 01/27/24 at 0930, Until Discontinued 1004 (Given - Provider: Sita Patricio LPN) 0851 (Given - Provider: Sita Patricio LPN) Desvenlafaxine Succinate ER (Pristiq) tab 100 mg 100 mg, Oral, Daily(AM), First dose on 01/27/24 at 0900, Until Discontinued, Swallow tablet whole; do not crush, chew, divide, or dissolve. 1016 (Given - Provider: Sita Patricio LPN) 0858 (Given - Provider: Sita Patricio LPN) diphenhydrAMINE (Benadryl) inj 25 mg (COMPLETED) 25 mg, Intravenous, ONCE, On 01/27/24 at 0000, For 1 dose 2337 (Given - Provider: Nishant Winn RN) linaCLOtide (Linzess) cap 288 mcg 288 mcg, Oral, BEFORE BREAKFAST, First dose on 01/27/24 at 0745, Until Discontinued 0800 (Given - Provider: Sita Patricio LPN) 0631 (Given - Provider: Etelvina Cardona RN) metoclopramide (Reglan) inj 10 mg (CANCELED) 10 mg, IV Push, Q6H, First dose on 01/27/24 at 0000, Until Discontinued 2333 (Given - Provider: Nishant Winn RN) 0600 (Not Given - Provider: Nihsi Cruz RN - Reason: Refused-Notify Provider - Comment: denies nausea)1123 (Given - Provider: Little Montes De Oca RN)1839 (Given - Provider: Little Montes De Oca RN) 0000 (Not Given - Provider: Etelvina Cardona RN - Reason: Other- Please add reason in Comments - Comment: Pt didnt want woke for med)0631 (Given - Provider: Etelvina Cardona RN) NSS 0.9% 1,000 mL bolus infusion (COMPLETED) Intravenous, at 1,000 mL/hr Administer over 60 Minutes, Administer entire volume within 60 minutes or less., ONCE, 1 dose, On 01/27/24 at 0000 0000 (New Bag - Provider: Nishant Winn RN)0225 (Stopped - Provider: Nishant Winn RN) omeprazole (PriLOSEC) cap 40 mg 40 mg, Oral, Daily(AM), First dose on 01/27/24 at 0900, Until Discontinued 0800 (Given - Provider: Sita Patricio LPN) 0851 (Given - Provider: Sita Patricio LPN) potassium chloride 10 mEq in 100 mL ivpb LOCKED DOSE (CANCELED) 10 mEq, Peripheral IV, Q1H, 3 doses, First dose on 01/27/24 at 0200, Last dose on 01/27/24 at 0400, Administer over 60 Minutes, Standard infusion duration is 60 minutes. 0113 (New Bag - Provider: Nishant Winn RN)0300 (Not Given - Provider: Nishant Winn RN - Reason: Other-Notify Provider - Comment: provider order)0400 (Not Given - Provider: Nishant Winn RN - Reason: Other- Please add reason in Comments - Comment: provider dc)0419 (Stopped - Provider: Nishant Winn RN) potassium chloride 10 mEq in 100 mL ivpb LOCKED DOSE (COMPLETED) 10 mEq, Peripheral IV, ONCE, 1 dose, On 01/27/24 at 0500, Administer over 60 Minutes, Standard infusion duration is 60 minutes. 0448 (New Bag - Provider: Nishant Winn RN)0525 (Paused - Provider: Sita Patricio LPN)0530 (Restarted - Provider: Sita Patricio LPN)0531 (Stopped - Provider: Sita Patricio LPN) potassium chloride ER tab 30 mEq (COMPLETED) 30 mEq, Oral, ONCE, On 01/27/24 at 0130, For 1 dose, This med should NOT be Crushed or Chewed 0114 (Given - Provider: Nishant Winn RN) potassium chloride ER tab 30 mEq 30 mEq, Oral, BID (.AM/PM), First dose on 01/27/24 at 0900, Until Discontinued, This med should NOT be Crushed or Chewed 08 (Given - Provider: Sita Patricio LPN)2036 (Given - Provider: Etelvina Cardona RN) 0851 (Given - Provider: Sita Patricio LPN) potassium chloride ER tab 40 mEq (COMPLETED) 40 mEq, Oral, ONCE, On 01/27/24 at 0500, For 1 dose, This med should NOT be Crushed or Chewed 0437 (Given - Provider: Nishant Winn, DUSTY) potassium chloride ER tab 40 mEq (COMPLETED) 40 mEq, Oral, ONCE, On 01/27/24 at 0700, For 1 dose, This med should NOT be Crushed or Chewed 06 (Given - Provider: Nishi Cruz, RN) QUEtiapine (SEROquel) tab 200 mg 200 mg, Oral, QHS, First dose (after last modification) on 01/27/24 at 2200, Until Discontinued 2036 (Given - Provider: Etelvina Cardona, DUSTY) Continuous Medication Order 01/26/2024 01/27/2024 01/28/2024 NSS infusion () Intravenous, at 75 mL/hr, CONTINUOUS, Starting on 01/27/24 at 0930, Until 01/27/24 at 1929 0930 (New Bag - Provider: Radha Patricio LPN)2036 (Stopped - Provider: Etelvina Cardona, DUSTY) PRN Medication Order 01/26/2024 01/27/2024 01/28/2024 Acetaminophen (Tylenol) tab 650 mg 650 mg, Oral, Q6H PRN Pain, Mild, Fever >38C(100.5F), Headache, Starting on 01/27/24 at 0522, Until 01/28/24 at 1402, Maximum of 4 grams (4000 mg) per day. Bisacodyl (Dulcolax) supp 10 mg(Linked Group 1) 10 mg, Rectal, DAILY PRN Constipation, Starting on 01/30/24 at 0442, Until 01/28/24 at 1402, Administer if no bowel movement within past 72 hours and patient unable to take oral medications. Bisacodyl (Dulcolax) tab 5 mg(Linked Group 1) 5 mg, Oral, DAILY PRN Constipation, Starting on 01/30/24 at 0442, Until 01/28/24 at 1402, Administer in addition to polyethylene glycol and senna-docusate if no bowel movement in past 72 hours. loperamide (Imodium) cap 2 mg 2 mg, Oral, Q6H PRN Diarrhea, Starting on 01/27/24 at 1039, Until 01/28/24 at 1402, Maximum of 16 mg per day recommended melatonin tab 3 mg 3 mg, Oral, HS PRN Insomnia, Starting on 01/27/24 at 0442, Until 01/28/24 at 1402 2036 (Given - Provider: William Cardona, RN) ondansetron (Zofran) inj 4 mg 4 mg, IV Push, Q6H PRN Nausea, Starting on 01/27/24 at 0442, Until 01/28/24 at 1402 Polyethylene Glycol 3350 (Miralax) oral powder 17 g(Linked Group 1) 17 g (1 Packet), Oral, DAILY PRN Constipation, Starting on 01/27/24 at 0442, Until 01/28/24 at 1402, Administer if no bowel movement within past 24 hours. senna-docusate (Senokot-S) 1 Tablet(Linked Group 1) 1 Tablet, Oral, BID PRN Constipation, Starting on 01/29/24 at 0442, Until 01/28/24 at 1402, Administer in addition to polyethylene glycol if no bowel movement within past 48 hours. sodium chloride 0.9 % flush/inj 3 mL 3 mL, IV Push, PRN Other, Line Patency, Starting on 01/27/24 at 0439, Until 01/28/24 at 1402, Do not flush if lock, PICC, or central line not in place, IV infusing or unable to flush Linked Groups Order Group 1: Polyethylene Glycol 3350 (Miralax) oral powder 17 gJump to med 17 g (1 Packet), Oral, DAILY PRN Constipation, Starting on 01/27/24 at 0442, Until 01/28/24 at 1402, Administer if no bowel movement within past 24 hours. And senna-docusate (Senokot-S) 1 TabletJump to med 1 Tablet, Oral, BID PRN Constipation, Starting on 01/29/24 at 0442, Until 01/28/24 at 1402, Administer in addition to polyethylene glycol if no bowel movement within past 48 hours. And Bisacodyl (Dulcolax) tab 5 mgJump to med 5 mg, Oral, DAILY PRN Constipation, Starting on 01/30/24 at 0442, Until 01/28/24 at 1402, Administer in addition to polyethylene glycol and senna- docusate if no bowel movement in past 72 hours. And Bisacodyl (Dulcolax) supp 10 mgJump to med 10 mg, Rectal, DAILY PRN Constipation, Starting on 01/30/24 at 0442, Until 01/28/24 at 1402, Administer if no bowel movement within past 72 hours and patient unable to take oral medications. documented in this encounter Additional Health Concerns Infection Onset Date Last Indicated Resolved Time Gastrointestinal Rule-Out 01/26/2024 01/27/2024 7:49 PM EDT C. difficile Rule-Out 01/26/2024 01/27/20242023 10:16 AM EDT documented as of this encounter [...] and were consensually agreed upon. Care Teams Mental Health Clinician Relationship Specialty Start Date End Date Laura Tse MD [address] [place] [id number] PCP - General Family Medicine 10/20/16 documented as of this encounter
--- OUTSIDE RECORDS SUMMARY | 2024-03-23 03:17 | External Medical Summary ---
Author Name Unknown Address Unknown Organization K1F:LABORATORY [facility] - [facility] [place] [address] Laboratory Report Ordering Provider Test Date Status LAITH WHITAKER 01/28/2024 05:11:00 Final Observation Date Value Abnormality Reference (Units ) Status WBC, Total 01/28/2024 05:11:00 7.69 4.00-10.80 (K/uL) Final RBC 01/28/2024 05:11:00 3.61 3.85-5.15 (M/uL) Final Hemoglobin 01/28/2024 05:11:00 11.1 Below low normal 12.0-15.3 (g/dL) Final HCT 01/28/2024 05:11:00 33.3 Below low normal 36.0-45.2 (%) Final MCV 01/28/2024 05:11:00 92.2 81.5-97.5 (fL) Final MCH 01/28/2024 05:11:00 30.7 27.0-34.0 (pg) Final MCHC 01/28/2024 05:11:00 33.3 32.0-36.0 (g/dL) Final RDW 01/28/2024 05:11:00 12.8 11.5-15.5 (%) Final Platelets 01/28/2024 05:11:00 311 140-400 (K/uL) Final MPV 01/28/2024 05:11:00 9.1 6.6-11.1 (fL) Final Nucleated erythrocytes/100 leukocytes [Ratio] in Blood by Automated count 01/28/2024 05:11:00 0 <=0 (/100 WBCs) Final Performing Location LABORATORY [facility] - [address] [place] [address]
--- OUTSIDE RECORDS SUMMARY | 2024-03-23 03:17 | External Medical Summary | Summary of Care ---
Author Name Unknown Organization [facility] Address [address] [place] [address] Phone [phone] Care Team Providers Care Blocker Automatic Name Role Phone Laura Tse MD Primary Care Provider + Encounter Details Date Type Department Care Team (Late st Contact Info) Description 02/12/2024 Orders Only Unspecified Department [facility] [address] [facility] [phone] Allergies Active Allergy Reactions Criticality Noted Date Comments Erythromycin 01/09/2002 GI UPSET documented as of this encounter (statuses as of 02/13/2024) Medications Medication Sig Dispensed Refills Start Date [...] as of this encounter (statuses as of 02/13/2024) Active Problems Problem Noted Date Diagnosed Date [...] as of this encounter (statuses as of 02/13/2024) Resolved Problems Problem Noted Date Diagnosed Date Resolved Date Encounter for supervision of other normal 02/27/2003 11/14/2003 Overview: ICD-10 update of inactive term Constipation 11/14/2003 Overview: ICD-10 update of inactive term URIN TRACT INFECTION NOS 08/2004 documented as of this encounter (statuses as of 02/13/2024) Immunizations Name Administration Dates Next Due TD, [...] 04/30/2024 9:27 AM EDT Hospital Encounter OR [facility], Operating Room, [facility] - 4th Floor [address] [place] [address] Bryce Reece, [address] [place] [address] 04/30/2024 9:27 AM EDT - 04/30/2024 10:14 AM EDT Surgery OR [facility], Operating Room, [facility] - 4th Floor [address] [place] [address] Bryce Reece DO [address] [place] [id number] COLONOSCOPY FLEXIBLE PROXIMAL DIAGNOSTIC Scheduled Procedures Name [...] Test 2021 Sigmoidoscopy 2021 COVID-19 Vaccine ( - 2022- season) 2023 Influenza Vaccine (FLU shot) (Season [...] Associated Diagnosis Comments BASIC METABOLIC PANEL Routine 02/12/2024 3:16 PM EDT MAGNESIUM Routine 02/12/2024 3:16 PM EDT documented in this encounter Results * BASIC METABOLIC PANEL (02/12/2024 3:16 PM EDT) GLUCOSE-OUTSID E LAB 93 70 - 110 MG/DL [facility] Comment:Document delivery by Maninder on behalf of [facility] BUN-OUTSIDE LAB 17 6 - 25 MG/DL [facility] Comment:Document delivery by Maninder on behalf of [facility] CREATININE-OUT SIDE LAB 0.9 0.5 - 1.2 MG/DL [facility] Comment:Document delivery by Maninder on behalf of [facility] SODIUM-OUTSIDE LAB 139 135 - 145 MEQ/L [facility] Comment:Document delivery by Maninder on behalf of [facility] POTASSIUM-OUTS ALEJANDRA LAB 3.5 3.5 - 5.0 MEQ/L [facility] Comment:Document delivery by Maninder on behalf of [facility] CHLORIDE-OUTSI DE LAB 99 95 - 107 MEQ/L [facility] Comment:Document delivery by Maninder on behalf of [facility] CO2-OUTSIDE LAB 30 24 - 31 MEQ/L [facility] Comment:Document delivery by Maninder on behalf of [facility] CALCIUM-OUTSID E LAB 10.2 8.5 - 10.6 MG/DL [facility] Comment:Document delivery by Maninder on behalf of [facility] EGFR-OUTSIDE LAB 71 >60 ML/MIN/1.7 3 SQM [facility] Comment:Document delivery by Maninder on behalf of [facility] 02/12/2024 3:16 PM EDT Koki Whitten PA-C LAB BLOOD ORDER MATHIEU [facility] [address] [place] [id number] * MAGNESIUM (02/12/2024 3:16 PM EDT) Pathologist [facility] MAGNESIUM-OUTS ALEJANDRA LAB 2.0 1.7 - 2.8 MG/DL [facility] Comment:Document delivery by Maninder on behalf of [facility] 02/12/2024 3:16 PM EDT Koki Jaki Whitten PA-C LAB BLOOD ORDER MATHIEU Performing Organization Address City/[facility]/ZIP Co de Phone Number [facility] [address] [place] [id number] documented in this encounter Advance Directives * [...] and were consensually agreed upon. Care Teams Blocker Automatic Relationship Specialty Start Date End Date Laura Tse MD [address] [facility] [place] [id number] PCP - General Family Medicine 10/20/16 documented as of this encounter
--- OUTSIDE RECORDS SUMMARY | 2024-03-23 03:17 | External Medical Summary ---
Author Name Unknown Address Unknown Organization : Laboratory Report Ordering Provider Test Date Status THOM MAKI 01/28/2024 05:11:00 Final Observation Date Value Abnormality Reference (Units ) Status Homocysteine 01/28/2024 05:11:00 10.8 Above high normal <10.4 (umol/L) Final Homocysteine is increased by functional deficiency of
folate or vitamin B12. Testing for methylmalonic acid
differentiates between these deficiencies. Other causes
of increased homocysteine include renal failure, folate
antagonists such as methotrexate and phenytoin, and
exposure to nitrous oxide.
Julio Cortes, et al. Evelin Patient Centered Care Specialist Med. 1999;131(5):331-9.

Test Performed at:
[facility]
[address] [facility]
[place] [address]
Rao Mcelroy M.D., Ph.D.,Director of Laboratories Performing Location
--- OUTSIDE RECORDS SUMMARY | 2024-03-23 03:17 | External Medical Summary ---
Author Name Unknown Address Unknown Organization K1F:LABORATORY [facility] - [address] [place] [address] Laboratory Report Ordering Provider Test Date Status LAITH WHITAKER 01/28/2024 05:11:00 Final Observation Date Value Abnormality Reference (Units ) Status BUN 01/28/2024 05:11:00 9 6-20 (mg/dL) Final Creatinine 01/28/2024 05:11:00 0.7 0.5-1.0 (mg/dL) Final Glomerular filtration rate/1.73 sq M.predicted [Volume Rate/Area] in Serum, Plasma or Blood by Creatinine-based formula (CKD-EPI) 01/28/2024 05:11:00 >90 >=60 (mL/min) Final eGFR is calculated based on the CKD-EPI 2020 equation Sodium 01/28/2024 05:11:00 142 135-146 (m mol/L) Final Potassium 01/28/2024 05:11:00 4.3 3.5-5.1 (m mol/L) Final Cl 01/28/2024 05:11:00 111 Above high normal 98 -107 (mmol/L) Final CO2 01/28/2024 05:11:00 23 22-32 (mmo l/L) Final Anion gap 01/28/2024 05:11:00 8 7-15 (mmol /L) Final Glucose 01/28/2024 05:11:00 102 70-120 (mg /dL) Final Calcium 01/28/2024 05:11:00 8.4 8.4-10.2 ( mg/dL) Final Performing Location LABORATORY [facility] - [address] [place] [address]
--- OUTSIDE RECORDS SUMMARY | 2024-03-23 03:17 | External Medical Summary ---
Author Name Unknown Address Unknown Organization K1F:[facility]ATORY [facility] - [address] [place] [address] Laboratory Report Ordering Provider Test Date Status TYREEEPSTEIN 03/01/2024 18:58:32 Final Observation Date Value Abnormality Reference (Units ) Status BUN 03/01/2024 18:58:32 19 6-20 (mg/dL) Final Creatinine 03/01/2024 18:58:32 1.1 Above high normal 0.5-1.0 (mg/dL) Final Glomerular filtration rate/1.73 sq M.predicted [Volume Rate/Area] in Serum, Plasma or Blood by Creatinine-based formula (CKD-EPI) 03/01/2024 18:58:32 62 >=60 (mL/min) Final eGFR is calculated based on the CKD-EPI 2020 equation Sodium 03/01/2024 18:58:32 137 135-146 (m mol/L) Final Potassium 03/01/2024 18:58:32 4.3 3.5-5.1 (m mol/L) Final Cl 03/01/2024 18:58:32 101 98-107 (mm ol/L) Final CO2 03/01/2024 18:58:32 22 22-32 (mmo l/L) Final Anion gap 03/01/2024 18:58:32 14 7-15 (mmol /L) Final Glucose 03/01/2024 18:58:32 102 70-120 (mg /dL) Final Albumin 03/01/2024 18:58:32 4.9 3.8-5.0 (g /dL) Final AST (Aspartate aminotransferase) 03/01/2024 18:58:32 23 10-35 (U/L) Fin al Alk Phos 03/01/2024 18:58:32 159 Above high normal 35 -130 (U/L) Final Bilirubin, Total 03/01/2024 18:58:32 0.2 <=1 .2 (mg/dL) Final Calcium 03/01/2024 18:58:32 10.2 8.4-10.2 ( mg/dL) Final Protein 03/01/2024 18:58:32 8.8 Above high normal 6. 0-8.3 (g/dL) Final ALT (Alanine aminotransferase) 03/01/2024 18:58:32 25 10-35 (U/L) Andrea iverson Performing Location LABORATORY [facility] - [address] [place], [place] [address]azar[place]a [place] [address]
--- OUTSIDE RECORDS SUMMARY | 2024-03-23 03:17 | External Medical Summary ---
Author Name Unknown Address Unknown Organization K1F:LABORATORY [facility] - [address] [place] [address] Laboratory Report Ordering Provider Test Date Status LUCIAN CLEMENTS 03/01/2024 18:58:32 Final hCG can serve as a screening assay [...] for postmenopausal women is <= 7 mIU/mL. Observation Date Value Abnormality Reference (Units ) Status Choriogonadotropin.int act+Beta subunit [Units/volume] in Serum or Plasma 03/01/2024 18:58:32 3.9 Above high normal <=1.0 (mIU/mL) Final Performing Location [facility]ATORY [facility] - [address] [place] [address]
--- OUTSIDE RECORDS SUMMARY | 2024-03-23 03:17 | External Medical Summary ---
Author Name Unknown Address Unknown Organization K1F:LABORATORY [facility] - [address] [place] [address] Laboratory Report Ordering Provider Test Date Status DOMINICK GREWAL 03/01/2024 18:58:32 Final Observation Date Value Abnormality Reference (Units ) Status Magnesium 03/01/2024 18:58:32 2.1 1.5-2.6 (m g/dL) Final Performing Location LABORATORY [facility] - [address] [place] [address]
--- OUTSIDE RECORDS SUMMARY | 2024-03-23 03:17 | External Medical Summary ---
Author Name Unknown Address Unknown Organization K1C:[facility] [address] [place] [address] Laboratory Report Ordering Provider Test Date Status GERA,MAMI 02/12/2024 15:16 Final Observation Date Value Abnormality Reference (Units ) Status Magnesium 02/13/2024 10:47 2.0 1.7-2.8 (MG/D L) Final Performing Location [facility] [address] [place] [address]
--- OUTSIDE RECORDS SUMMARY | 2024-03-23 03:17 | External Medical Summary ---
Author Name Unknown Address Unknown Organization K1F:LABORATORY [facility] - [address] [place] [address] Laboratory Report Ordering Provider Test Date Status LUCIAN CLEMENTS 03/01/2024 18:58:32 Final Collect NOW Observation Date Value Abnormality Reference (Units ) Status Troponin T 03/01/2024 18:58:32 <6 <=14 (ng/ L) Final Performing Location LABORATORY [facility] - [address] [place] [address]
--- OUTSIDE RECORDS SUMMARY | 2024-03-23 03:17 | External Medical Summary ---
Author Name Unknown Address Unknown Organization K1F:LABORATORY [facility] - [address] [place] [address] Laboratory Report Ordering Provider Test Date Status LUCIAN CLEMENTS 03/01/2024 18:58:32 Final Observation Date Value Abnormality Reference (Units ) Status SYNC LEUKOCYTES IN BLOOD BY AUTOMATED COUNT 03/01/2024 18:58:32 13.40 Above high normal 4.00-10.80 (K/uL) Final Segs 03/01/2024 18:58:32 68.9 40.0-75.0 (%) Final Lymphs % 03/01/2024 18:58:32 24.7 18.0-42.0 (%) Final Monos 03/01/2024 18:58:32 5.4 1.0-11.0 (%) Final Eosinophils 03/01/2024 18:58:32 0.2 0.0-6.0 (%) Final Basos 03/01/2024 18:58:32 0.4 0.0-2.0 (%) Final Immature Granulocyte, Percent 03/01/2024 18:58:32 0.4 0.0-2.0 (%) Final Absolute Segs 03/01/2024 18:58:32 9.23 Above high normal 1.80-7.70 (K/uL) Final Lymphs, absolute 03/01/2024 18:58:32 3.31 1.00-4.80 (K/ul) Final Monos, Abs 03/01/2024 18:58:32 0.73 0.00-1.10 (K/uL) Final Eos, Abs 03/01/2024 18:58:32 0.03 0.00-0.70 (K/uL) Final Basos, Abs 03/01/2024 18:58:32 0.05 0.00-0.20 (K/uL) Final Immature Granulocytes, Number 03/01/2024 18:58:32 0.05 0.00-0.20 (K/uL) Final Performing Location LABORATORY [facility] - [address] [place] [address]
[2024-03-23 03:18] LABS: Appearance Urine Cloudy (Clear); Bacteria Urine Automated None Seen (None Seen); Bilirubin Urine Negative (Negative); Blood Urine Negative (Negative); Color Urine Yellow; Glucose Urine UA Negative (Negative); Ketones Urine Negative (Negative); Leukocyte Esterase Urine 1+ (Negative); Nitrite Urine Negative (Negative); Protein Urine Negative (Negative); RBC Urine Automated 0-2 /hpf (0-2); Specific Gravity Urine 1.011 (1.000-1.030); Urobilinogen Urine Negative (Negative); pH Urine 5.5 (4.5-7.5)
--- OUTSIDE RECORDS SUMMARY | 2024-03-23 03:18 | External Medical Summary ---
Author Name Unknown Address Unknown Organization K1F:LABORATORY [facility] - [address] [place] [address] Laboratory Report Ordering Provider Test Date Status IDRIS RAM 01/26/2024 23:08:27 Final hCG can serve as a screening [...] act+Beta subunit [Units/volume] in Serum or Plasma 01/26/2024 23:08:27 3.9 Above high normal <=1.0 (mIU/mL) Final Performing Location LAB[facility]ATORY [facility] [address] [facility] [place] [address]
--- OUTSIDE RECORDS SUMMARY | 2024-03-23 03:18 | External Medical Summary ---
Author Name Unknown Address Unknown Organization K1F:LABORATORY [facility] - [address] [place] [address] Laboratory Report Ordering Provider Test Date Status KYLE KOROMA 01/27/2024 03:13:09 Final Observation Date Value Abnormality Reference (Units ) Status Magnesium 01/27/2024 03:13:09 1.8 1.5-2.6 (m g/dL) Final Performing Location LABORATORY [facility] - [address] [place] [address]
--- OUTSIDE RECORDS SUMMARY | 2024-03-23 03:18 | External Medical Summary ---
Author Name Unknown Address Unknown Organization K1F:[facility] - [address] [facility] [address] [place] [address] Laboratory Report Ordering Provider Test Date Status IDRIS RAM 01/27/2024 02:48:41 Final Observation Date Value Abnormality Reference (Units ) Status Color of Urine by Auto 01/27/2024 02:48:41 Yellow Light Yellow, Yellow, Dark Yellow Final Clarity, Urine 01/27/2024 02:48:41 Slightly Cloudy Abnormal Clear Final Glucose [Mass/volume] in Urine by Automated test strip 01/27/2024 02:48:41 Negative Negative (mg/dL) Final Bilirubin.total [Presence] in Urine by Automated test strip 01/27/2024 02:48:41 Negative Negative Final Ketones [Mass/volume] in Urine by Automated test strip 01/27/2024 02:48:41 Negative Negative (mg/dL) Final Specific gravity, Urine 01/27/2024 02:48:41 1.023 1.003-1.030 Final Hemoglobin [Presence] in Urine by Automated test strip 01/27/2024 02:48:41 Negative Negative Final pH, Urine 01/27/2024 02:48:41 6.0 5.0-7.5 (Units) Final Protein [Mass/volume] in Urine by Automated test strip 01/27/2024 02:48:41 Trace Abnormal Negative (mg/dL) Final Urobilinogen [Mass/volume] in Urine by Automated test strip 01/27/2024 02:48:41 0.2 0.2, 1.0 (mg/dL) Final Nitrite [Presence] in Urine by Automated test strip 01/27/2024 02:48:41 Negative Negative Final Leukocyte esterase [Presence] in Urine by Automated test strip 01/27/2024 02:48:41 Small Abnormal Negative Final RBC, Urine 01/27/2024 02:48:41 0-2 0-2 (/HPF) Final WBC, Urine 01/27/2024 02:48:41 6-9 Abnormal 0-2 (/HPF) Final Bacteria [#/area] in Urine sediment by Microscopy high power field 01/27/2024 02:48:41 51-100 Abnormal 0-25 (/HPF) Final Mucus, Urine 01/27/2024 02:48:41 Many Abnormal None (/HPF) Final Yeast [#/area] in Urine sediment by Microscopy high power field 01/27/2024 02:48:41 Present Abnormal None (/HPF) Final CULTURE, URINE - [facility] 01/27/2024 02:48:41 Final Quantitative urine culture t o be performed Performing Location LABORATORY [facility] - [address] [place] [address]
--- OUTSIDE RECORDS SUMMARY | 2024-03-23 03:18 | External Medical Summary ---
Author Name Unknown Address Unknown Organization K1F:LABORATORY [facility] - [address] [place] [address] Laboratory Report Ordering Provider Test Date Status PUSHPA MORROW 01/27/2024 03:13:09 Final Observation Date Value Abnormality Reference (Units ) Status Potassium 01/27/2024 03:13:09 2.7 Below low normal 3.5 -5.1 (mmol/L) Final Performing Location LABORATORY [facility] - [address] [place] [address]
--- OUTSIDE RECORDS SUMMARY | 2024-03-23 03:18 | External Medical Summary | Summary of Care ---
Author Name Unknown Organization [facility] Address [address] [facility] [place] [address] Phone [phone] Care Team Providers Care Loss Prevention Associate Name Role Phone Laura Tse MD Primary Care Provider + Reason for Visit * Reason Onset Date Comments Procedure 12/29/2023 Encounter Details Date Type Department Care Team (Late st Contact Info) Description 12/29/2023 Telephone [facility] Gastroenterology [address] [place] [phone] Bess Queen PA-C [address] [place] [phone] Procedure (/) Allergies Active Allergy Reactions Criticality Noted Date Comments Erythromycin 01/09/2002 GI UPSET documented as of this encounter (statuses as of 01/01/2024) Medications Medication Sig Dispensed Refills Start Date End Date Status clonazePAM (KLONOPIN) 1 MG Tablet Take 1 Tablet by mouth in the morning and 1 Tablet before bedtime. 0 01/25/2019 Active Linzess 290 MCG Oral Capsule Take 1 Capsule by mouth daily before breakfast. 0 07/17/2020 Active QUEtiapine Fumarate 200 MG Oral Tablet (SEROquel) Take by mouth 1 Tablet before bedtime. 5 Tablet 0 01/20/2022 Active Desvenlafaxine Succinate ER 100 MG Oral Tablet Extended Release 24 Hour Take 1 Tablet by mouth in the morning. 0 Active Vitron-C 65-125 MG Oral Tablet (Iron-Vitamin C 65-125 mg per tab) Take 1 Tablet by mouth in the morning. 0 Active Methylphenidate HCl 20 MG Oral Tablet (Ritalin) Take 1 Tablet by mouth in the morning and 1 Tablet at noon and 1 Tablet in the evening. 0 Active NexIUM 40 MG Oral Capsule Delayed Release Take 1 Capsule by mouth daily before breakfast. 0 09/06/2023 Active Cyanocobalamin 1000 MCG/ML Injection Solution (Cyanocobalamin) Inject 1,000 mcg into a large muscle every 30 days. 0 11/23/2023 Active Famotidine 40 MG Oral Tablet (PEPCID) Take 1 Tablet by mouth at bedtime. 0 4 Discontinued Ondansetron 4 MG Oral Tablet Disintegrating Place 1 Tablet on tongue every 8 hours as needed for Nausea. dissolve on tongue. 20 Tablet 0 07/19/2021 4 Discontinued Potassium Chloride ER 20 MEQ Oral Tablet Extended Release Take by mouth 20 mEq 2 times a day . 0 4 Discontinued Magnesium Oxide 400 MG Oral Capsule Take by mouth 1 Capsule in the morning. 30 Capsule 5 05/25/2022 4 Discontinued Prochlorperazine Maleate 5 MG Oral Tablet (Compazine) Take 1 Tablet by mouth every 8 hours as needed for Nausea or Vomiting. 0 01/12/2023 4 Discontinued Ibuprofen 600 MG Oral Tablet (Motrin) Take 1 Tablet by mouth every 6 hours as needed (headache). 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 Medication exposure during first trimester of pr egnancy 05/04/2015 AMA (advanced maternal age) multigravida 35+ SABA I (cervical intraepithelial neoplasia I) Overview: 9-2013 Chronic daily headache 05/30/2013 Migraine without aura 05/30/2013 Cervicalgia 05/30/2013 Abnormal Papanicolaou smear of vagina and vagina l HPV Overview: ICD-10 update of inactive term Fibromyalgia Dysthymic disorder Anemia Esophageal reflux Major depressive disorder Overview: ICD-10 update of inactive term Syncope documented as of this encounter (statuses as of 01/01/2024) Resolved Problems Problem Noted Date Diagnosed Date Resolved Date Encounter for supervision of other normal 02/27/2003 11/14/2003 Overview: ICD-10 update of inactive term Constipation 11/14/2003 Overview: ICD-10 update of inactive term URIN TRACT INFECTION NOS 08/2004 documented as of this encounter (statuses as of 01/01/2024) Immunizations Name Administration Dates Next Due TD, [...] you have serious difficulty h earing? No 12/28/2023 Are you blind or do you have serious difficulty seeing, even when wearing glasses? No 12/28/2023 Do you have serious difficul ty walking or climbing stairs? (5 years old or older) No 12/28/2023 Do you have difficulty dress ing or bathing? (5 years old or older) No 12/28/2023 Because of a physical, menta l, or emotional condition, do you have difficulty doing errands alone such as visiting a doctor s office or shopping? (15 years old or older) No 04/25/20 24 Cognitive Status Response Date of Assessm ent Because of a physical, menta l, or emotional condition, do you have serious difficulty concentrating, remembering, or making decisions? (5 years old or older) Yes-ADHD 12/28/2023 documented as of this encounter Miscellaneous Notes * Telephone Encounter - Gavi Morales OSA - 01/01/2024 11:25 AM EDT Colon/egd 04/30 * Telephone Encounter - Bess Queen PA-C - 12/29/2023 4:11 PM EDT Please arrange an OP EGD and colonoscopy in 6-8 weeks. Orders placed. Patient currently still admitted. Thank you documented in this encounter Plan of Treatment Upcoming Encounters Date Type Department Care Team (Latest Contact Info) Description 01/04/2024 10:00 AM EDT Office Visit [facility] [address] [facility] [place] [phone] Uvaldo Dutton MD [address] [place] [address] 01/09/2024 3:00 PM EDT Office Visit Gastroenterology, [facility] [address] [facility] [place] [phone] Itzel Wray CRNP [address] [place] [id number] 04/30/2024 9:13 AM EDT Hospital Encounter OR [facility], Operating Room, [facility] - 4th Floor [address] [facility] [place] [address] Bryce Reece DO [address] [place] [address] 04/30/2024 9:13 AM EDT - 04/30/2024 10:00 AM EDT Surgery OR [facility], Operating Room, [facility] - 4th Floor [address] [place] [address] Bryce Reece, DO [address] [place] [address] COLONOSCOPY FLEXIBLE PROXIMAL DIAGNOSTIC Scheduled Orders Name Type Priority Associated Diagnoses Orde r Schedule EGD, FLEXIBLE, DIAGNOSTIC Procedures Routine Nausea and vomiting, unspecified vomiting type Gastritis, presence of bleeding unspecified, unspecified chronicity, unspecified gastritis type Ordered: 12/29/2023 COLONOSCOPY Gastro Lower Routine Colitis Ordered: 12/29/2023 Scheduled Procedures Name Priority Associated Diagnoses Date/Ti me COLONOSCOPY FLEXIBLE PROXIMA L DIAGNOSTIC Recall History of colonic polyps Colitis Nausea and vomiting 04/30/2024 9:13 AM EDT ESOPHAGOGASTRODUODENOSCOPY ( EGD), FLEXIBLE, TRANSORAL, DIAGNOSTIC Recall History of colonic polyps Colitis Nausea and vomiting 04/30/2024 9:13 AM EDT Health Maintenance Due Date Last [...] as of this encounter Visit Diagnoses Diagnosis Nausea and vomiting, unspecified vomiting type- Primary Gastritis, presence of bleeding unspecified, unspecified chronicity, unspecified gastritis type Colitis Other and unspecified noninfectious gastroenteritis and colitis History of colonic polyps Personal history of colonic polyps Colitis Other and unspecified noninfectious gastroenteritis and colitis Nausea and vomiting Nausea with vomiting documented in this encounter Additional Health Concerns Infection Onset Date Last Indicated Resolved Time Gastrointestinal Rule-Out 12/28/2023 12/29/2023 5:18 PM EDT C. difficile Rule-Out 12/28/2023 12/29/20232023 2:04 AM EDT documented as of this encounter Advance Directives Latest Code Status on File Code Status Date Activated Date Inactivated Comments Full Code 12/28/2023 6:11 PM 12/31/2023 3:09 PM This order reflects the patients wishes and were consensually agreed upon. Question Answer Comments Discussion of Advance Directives occurred with: Patient Code Status History Code Status Date Activated Date Inactivated Comments Full Code 01/16/2022 1:36 AM 01/20/2022 2:02 PM This order reflects the patients wishes and were consensually agreed upon. Question Answer Comments Discussion of Advance Directives occurred with: Patient Does the patient have a Living Will? No Does the patient have Health Care Power of Management Advisor? No Full Code 07/19/2021 4:00 PM 07/19/2021 9:05 PM Thi s order reflects the patients wishes and were consensually agreed upon. Full Code 07/19/2021 3:53 PM 07/19/2021 4:00 PM Thi s order reflects the patients wishes and were consensually agreed upon. Full Code 07/19/2021 12:51 PM 07/19/2021 3:53 PM Th is order reflects the patients wishes and were consensually agreed upon. Care Teams Loss Prevention Associate Relationship Specialty Start Date End Date [facility] Tse [facility] [address] [facility] [address] P[facility] - General Family Medicine 10/20/16 documented as of this encounter
--- OUTSIDE RECORDS SUMMARY | 2024-03-23 03:18 | External Medical Summary ---
Author Name Unknown Address Unknown Organization [id number]:[facility] [place] [address] [place] [address] Laboratory Report Ordering Provider Test Date Status LAITH WHITAKER 01/27/2024 03:13:09 Final Observation Date Value Abnormality Reference (Units ) Status Vitamin B12 01/27/2024 03:13:09 [phone] (pg/mL) Final Performing Location [facility] [place] - [address] [place] [address]
--- OUTSIDE RECORDS SUMMARY | 2024-03-23 03:18 | External Medical Summary ---
Author Name Unknown Address Unknown Organization [id number]:LABORATORY [address] [place] [address] Laboratory Report Ordering Provider Test Date Status IDRIS RAM 01/26/2024 23:08:27 Final Observation Date Value Abnormality Reference (Units ) Status SYNC LEUKOCYTES IN BLOOD BY AUTOMATED COUNT 01/26/2024 23:08:27 9.54 4.00-10.80 (K/uL) Final Segs 01/26/2024 23:08:27 57.1 40.0-75.0 (%) Final Lymphs % 01/26/2024 23:08:27 34.6 18.0-42.0 (%) Final Monos 01/26/2024 23:08:27 7.2 1.0-11.0 (%) Final Eosinophils 01/26/2024 23:08:27 0.4 0.0-6.0 (%) Final Basos 01/26/2024 23:08:27 0.4 0.0-2.0 (%) Final Immature Granulocyte, Percent 01/26/2024 23:08:27 0.3 0.0-2.0 (%) Final Absolute Segs 01/26/2024 23:08:27 5.44 1.80-7.70 (K/uL) Final Lymphs, absolute 01/26/2024 23:08:27 3.30 1.00-4.80 (K/ul) Final Monos, Abs 01/26/2024 23:08:27 0.69 0.00-1.10 (K/uL) Final Eos, Abs 01/26/2024 23:08:27 0.04 0.00-0.70 (K/uL) Final Basos, Abs 01/26/2024 23:08:27 0.04 0.00-0.20 (K/uL) Final Immature Granulocytes, Number 01/26/2024 23:08:27 0.03 0.00-0.20 (K/uL) Final Performing Location LABORATORY [facility] - [address] [place] [address]
--- OUTSIDE RECORDS SUMMARY | 2024-03-23 03:18 | External Medical Summary ---
Author Name Unknown Address Unknown Organization [id number]:[facility] [place] [address] [facility] [address] Laboratory Report Ordering Provider Test Date Status NIMCO MORROWDiya 01/27/2024 09:17:33 Final Observation Date Value Abnormality Reference (Units ) Status Campylobacter sp DNA.diarrheagenic [Presence] in Stool by MINDI with probe detection 01/27/2024 09:17:33 Negative Negative Final Salmonella sp rpoD gene [Presence] in Stool by MINDI with probe detection 01/27/2024 09:17:33 Negative Negative Final Shigella species+EIEC invasion plasmid antigen H ipaH gene [Presence] in Stool by MINDI with probe detection 01/27/2024 09:17:33 Negative Negative Final Vibrio sp DNA [Identifier] in Specimen by MINDI with probe detection 01/27/2024 09:17:33 Negative Negative Final Yersinia enterocolitica recN gene [Presence] in Stool by MINDI with probe detection 01/27/2024 09:17:33 Negative Negative Final Escherichia coli Stx1 toxin stx1 gene [Presence] in Stool by MINDI with probe detection 01/27/2024 09:17:33 Negative Negative Final Escherichia coli Stx2 toxin stx2 gene [Presence] in Stool by MINDI with probe detection 01/27/2024 09:17:33 Negative Negative Final Norovirus genogroups I and II RNA panel - Stool by MINDI with probe detection 01/27/2024 09:17:33 Negative Negative Final Rotavirus A RNA [Presence] in Stool by MINDI with probe detection 01/27/2024 09:17:33 Negative Negative Final Performing Location [facility] [place] [address] [facility] [address]
--- OUTSIDE RECORDS SUMMARY | 2024-03-23 03:18 | External Medical Summary ---
Author Name Unknown Address Unknown Organization K1F:LABORATORY [facility] - [address] [place] [address] Laboratory Report Ordering Provider Test Date Status LAITH WHITAKER 01/27/2024 11:34:00 Final Observation Date Value Abnormality Reference (Units ) Status BUN 01/27/2024 11:34:00 9 6-20 (mg/dL) Final Creatinine 01/27/2024 11:34:00 0.7 0.5-1.0 (mg/dL) Final Glomerular filtration rate/1.73 sq M.predicted [Volume Rate/Area] in Serum, Plasma or Blood by Creatinine-based formula (CKD-EPI) 01/27/2024 11:34:00 >90 >=60 (mL/min) Final eGFR is calculated based on the CKD-EPI 2020 equation Sodium 01/27/2024 11:34:00 142 135-146 (m mol/L) Final Potassium 01/27/2024 11:34:00 4.5 3.5-5.1 (m mol/L) Final Cl 01/27/2024 11:34:00 115 Above high normal 98 -107 (mmol/L) Final CO2 01/27/2024 11:34:00 20 Below low normal 22- 32 (mmol/L) Final Anion gap 01/27/2024 11:34:00 7 7-15 (mmol /L) Final Glucose 01/27/2024 11:34:00 105 70-120 (mg /dL) Final Calcium 01/27/2024 11:34:00 8.4 8.4-10.2 ( mg/dL) Final Performing Location LABORATORY [facility] - [address] [place] [address]
--- OUTSIDE RECORDS SUMMARY | 2024-03-23 03:18 | External Medical Summary ---
Author Name Unknown Address Unknown Organization K1F:LABORATORY [facility] - [address] [place] [address] Laboratory Report Ordering Provider Test Date Status LAITH WHITAKER 01/27/2024 09:17:33 Final Observation Date Value Abnormality Reference (Units) Status Source 01/27/2024 09:17:33 Liquid Final Clostridioides difficile toxin and [id number] strain DNA panel - Stool by MINDI with probe detection 01/27/2024 09:17:33 Negative. No C. difficile toxin B gene DNA detected by PCR (Amplified Probe). Negative Final Performing Location LABORATORY [facility] - [address] [place] [address]
--- OUTSIDE RECORDS SUMMARY | 2024-03-23 03:18 | External Medical Summary ---
Author Name Unknown Address Unknown Organization K01:[facility] [place] - [address] [place] [address] Laboratory Report Ordering Provider Test Date Status PUSHPA MORROW 01/27/2024 09:17:33 Final Observation Date Value Abnormality Reference (Units) Status Bacteria identified in Specimen by Culture 01/27/2024 09:17:33 No Aeromonas species or Plesiomonas species isolated. Final Test: Gastrointestinal Patho gen Panel Culture
Specimen Source: Stool
Specimen Type: Stool
Specimen Date: 01/27/2024916
Result Date: 01/29/2024 1111
Result Status: Final result
Resulting Lab: [facility] [place]
[address]
[place] [facility]

CULTURE

No Aeromonas species or Plesiomonas species isolated.

null Performing Location [facility]ATORY [facility] [place] - [address] [place] [id number]
--- OUTSIDE RECORDS SUMMARY | 2024-03-23 03:18 | External Medical Summary ---
Author Name Unknown Address Unknown Organization K01:LAB[facility]ATORY [facility] [place] - [address] [place] [address] Laboratory Report Ordering Provider Test Date Status WILDER QUILES 01/27/2024 03:13:09 Final Observation Date Value Abnormality Reference (Units ) Status Iron 01/27/2024 03:13:09 51 33-151 (ug/dL) Final Iron-binding capacity 01/27/2024 03:13:09 209 Below low normal 250-425 (ug/dL) Final Transferrin Sat % 01/27/2024 03:13:09 24 15-55 (%) Final Performing Location LABORATORY [facility] [place] - [address] [place] [address]
--- OUTSIDE RECORDS SUMMARY | 2024-03-23 03:18 | External Medical Summary | Summary of Care ---
Author Name Unknown Organization [facility] Address [address] [place] [address] Phone [phone] Care Team Providers Care Pawn Broker Name Role Phone Laura Tse MD Primary Care Provider + Reason for Referral * Evaluate & Treat - Unlimited Visits (Within 3 days (urgent)) - Authorized Specialty Diagnoses / Procedures Referred By Contac t Referred To Contact Gastroenterology Diagnoses Colitis Bowen Gonzalez MD [address] [facility] [place] [address] Referral ID Status Reason Start Date Expiration Date Visits Requested Visits Authorized [id number] Authorized Specialty Services Required 12/31/[phone] Question Answer Referral Priority Within 3 days (urgent) Where should this appointment be scheduled? [facility] For what condition is the patient being referred? All Gastro Conditions Comments Concern for inflammatory colitis. Discharge Order Reason for Visit * Reason Comments Abdominal Pain * Auth/Cert Specialty Diagnoses / Procedures Referred By Contac t Referred To Contact [facility] [address] [place] [address] Phone: [phone] Emergency Medicine [address] [address] Referral ID Status Reason Start Date Expiration Date Visits Re quested Visits Authorized [id number] Encounter Details Date Type Department Care Team (Late st Contact Info) Description 12/28/2023 2:25 PM EDT - 12/31/2023 11:08 AM EDT Hospital Encounter 5A [facility], [facility] [place] 5th Floor [address] [place], [place] [id number] Peterson Sweeney MD [address] [place], [place] [phone] Sheila Bennett MD [address] [facility] [place], [place] [phone] Bowen Gonzalez MD [address] [place], [place] [phone] Pt Handout (on AVS) Discharge Disposition: Home - Self Care Allergies Active Allergy Reactions Criticality Noted Date Comments Erythromycin 01/09/2002 GI UPSET documented as of this encounter (statuses as of 12/31/2023) Medications Medication Sig Dispensed Refills Start Date End Date Status clonazePAM (KLONOPIN) 1 MG Tablet Take 1 Tablet by mouth in the morning and 1 Tablet before bedtime. 0 9 Active Linzess 290 MCG Oral Capsule Take 1 Capsule by mouth daily before breakfast. 0 0 Active QUEtiapine Fumarate 200 MG Oral Tablet (SEROquel) Take by mouth 1 Tablet before bedtime. 5 Tablet 0 2 Active Desvenlafaxine Succinate ER 100 MG Oral [...] Capsule by mouth daily before breakfast. 0 4 Active Cyanocobalamin 1000 MCG/ML Injection Solution (Cyanocobalamin) Inject 1,000 mcg into a large muscle every 30 days. 0 4 Active Potassium Chloride ER 20 MEQ Oral Tablet Extended Release Take 2 Tablets by mouth in the morning and 2 Tablets before bedtime. 120 Tablet 0 4 Active Calcium Carbonate Antacid 750 MG Oral Tablet Chewable (Tums E-X) Take 2 Tablets by mouth in the morning. 60 Tablet 0 4 Active Ondansetron 4 MG Oral Tablet Disintegrating (Zofran) Place 1 Tablet on tongue every 8 hours as needed for Nausea or Vomiting. dissolve on tongue. 60 Tablet 0 4 Active Famotidine 40 MG Oral Tablet (PEPCID) Take 1 Tablet by mouth at bedtime. 0 12/31/19 24 Discontinued Ondansetron 4 MG Oral Tablet Disintegrating Place 1 Tablet on tongue every 8 hours as needed for Nausea. dissolve on tongue. 20 Tablet 0 1 12/31/19 24 Discontinued Potassium Chloride ER 20 MEQ Oral Tablet Extended Release Take by mouth 20 mEq 2 times a day . 0 12/31/19 24 Discontinued Docusate Sodium 50 MG Oral Capsule (Colace) Take by mouth daily . 0 12/28/19 24 Discontinued(Med ication List Clean Up) Aspirin 81 MG Oral Capsule Take by mouth 1 Capsule daily . 0 12/28/19 24 Discontinued(Med ication List Clean Up) traZODone HCl 50 MG Oral Tablet (Desyrel) Take by mouth 1 Tablet at bedtime as needed, may repeat once for Sleep. 10 Tablet 0 2 12/28/19 24 Discontinued(Med ication List Clean Up) buPROPion HCl ER (SR) 100 MG Oral Tablet Extended Release 12 Hour (Wellbutrin SR) Take by mouth 1 Tablet in the morning. Do not start before January 21, 2022. 5 Tablet 0 2 12/28/19 24 Discontinued(Med ication List Clean Up) Magnesium Oxide 400 MG Oral Capsule Take by mouth 1 Capsule in the morning. 30 Capsule 5 2 12/31/19 24 Discontinued Riboflavin 400 MG Oral Tablet Take by mouth 1 Tablet in the morning. 30 Tablet 5 2 12/28/19 24 Discontinued(Med ication List Clean Up) Gabapentin 300 MG Oral Capsule (Neurontin) Take 1 Capsule by mouth in the morning and 1 Capsule at noon and 1 Capsule before bedtime. 0 12/28/19 24 Discontinued(Med ication List Clean Up) Prochlorperazine Maleate 5 MG Oral Tablet (Compazine) Take 1 Tablet by mouth every 8 hours as needed for Nausea or Vomiting. 0 3 12/31/19 24 Discontinued Ibuprofen 600 MG Oral Tablet (Motrin) Take 1 Tablet by mouth every 6 hours as needed (headache). 0 12/31/19 24 Discontinued documented as of this encounter (statuses as of 12/31/2023) Active Problems Problem Noted Date Diagnosed Date [...] SABA I (cervical intraepithelial neoplasia I) Overview: -2013 Chronic daily headache 05/30/2013 Migraine without aura 05/30/2013 Cervicalgia 05/30/2013 Abnormal Papanicolaou smear of vagina and vagina l HPV Overview: ICD-10 update of inactive term Fibromyalgia Dysthymic disorder Anemia Esophageal reflux Major depressive disorder Overview: ICD-10 update of inactive term Syncope documented as of this encounter (statuses as of 12/31/2023) Resolved Problems Problem Noted Date Diagnosed Date Resolved Date Encounter for supervision of other normal 02/27/2003 11/14/2003 Overview: ICD-10 update of inactive term Constipation 11/14/2003 Overview: ICD-10 update of inactive term URIN TRACT INFECTION NOS 08/2004 documented as of this encounter (statuses as of 12/31/2023) Immunizations Name Administration Dates Next Due TD, [...] Sign Reading Time Taken Comments Blood Pressure 104/63 12/31/2023 8:00 AM EDT Pulse 103 12/31/2023 8:00 AM EDT Temperature 37.4 C (99.3 F) 12/31/2023 8:00 AM ED T Respiratory Rate 18 12/31/2023 8:00 AM EDT Oxygen Saturation 97% 12/31/2023 8:00 AM EDT Inhaled Oxygen Concentration - - Weight 58.5 kg (129 lb) 12/28/2023 6:24 PM EDT Height - - Body Mass Index 22.14 02/22/2023 11:16 AM EDT documented in this encounter Functional [...] shopping? (15 years old or older) No 12/28/19 Cognitive Status Response Date of Assessm ent Because of a physical, menta l, or emotional condition, do you have serious difficulty concentrating, remembering, or making decisions? (5 years old or older) Yes-ADHD 12/28/2023 documented as of this encounter Discharge Summaries * Bowen Gonzalez MD - 12/31/2023 9:45 AM EDT [facility] [facility] [id number] Admission Date: 12/28/2023 Discharge Date: 12/31/2023 RECOMMENDED TO DO FOR NEXT PROVIDER(S): CBC and Basic metabolic panel 5-7 days. Please make sure the patient follows up with Gastroenterology for suspected inflammatory colitis, workup. REASON(S) FOR MEDICATION CHANGE(S): 1. Started on oral supplementation for potassium as well as calcium. 2. She will need further vitamin B12 supplementation, 82900 units once a month IM shot. 3. I have stopped her famotidine. 4. I have ordered Zofran ODT as needed for nausea or vomiting. DISPOSITION ON DISCHARGE: home Active Hospital Problems Diagnosis *Principal Diagnosis - Colitis Hypocalcemia Gastritis Hypokalemia Chronic constipation Generalized anxiety disorder Attention deficit hyperactivity disorder, predominantly inattentive type Major depressive disorder Esophageal reflux Anemia Resolved Hospital Problems No resolved problems to display. ADMISSION HISTORY & PHYSICAL EXAM (focused): PRESENTING PROBLEM: abdominal pain HPI: Gavi Sim 48 year old female with a PMHx of depression, anxiety, ADHD, hypokalemia presented to [facility] ED for abdominal pain, nausea, and vomiting. This has been ongoing for 8+ months. Reports vomiting every times she eats. Reports worsening vomiting with streaks of blood in it. Stool has mucus and blood. Pain is a cramping type abdominal pain, lower and upper + ruq. Feels like she's unable to fully empty her bowels. Reports BMs are very small. Reports she'll go days without a BM, and thenone day she go 20+ times a day. Decreased oral intake. No family history of ulcerative colitis or crohns. Per EMR, patient had a colonoscopy in February of 2023, two polyps were removed. Biposy results showed Tubular adenoma, with additional hyperplastic polyp. She has not follow up with GI. I spoke with the ED provider, ED course included: Patient is tachycardic in the ED. Labs reveal a leukocytosis of 17K, potassium of 2.3, lactate 2.6. CT abd/pelvis shows mild gastritis and colitis (infectious vs inflammatory). Patient given 1L of NSS bolus, zofran and morphine, potassium 10meq IV x1 and potassium 20meq PO in the ED. IMPRESSION: Principal Problem: Colitis Active Problems: Esophageal reflux Major depressive disorder Hypokalemia Attention deficit hyperactivity disorder, predominantly inattentive type Generalized anxiety disorder Chronic constipation Resolved Problems: * No resolved hospital problems. * ASSESSMENT/PLAN: Will assign to telemetry observation for colitis (inflammatory vs infectious) and hypokalemia. - In addition to potassium replacement given in the ED, will give potassium 10meq IV q1h x3 and potassium 20 meq PO. - Recheck BMP at 2200 - GI consult ordered - Cdiff and GI pathogen panel ordered. - Will need additional GI follow up for liver imaging findings. - Lactate normalized. - Continue Isolyte 100cc/hr - Resume home medications. - Check CBC, BMP, mag and phos in AM. PHARMACOLOGIC VTE PROPHYLAXIS: Enoxaparin CODE STATUS: Full Code HOSPITAL COURSE (focused): Patient was admitted and monitored in med tele unit. Time she was hydrated with IV fluids, with thecourse the 1st 48 hours in the hospital. She also received initially IV supplementation of potassium, and was then transitioned p.o. supplementation. Of note during workup she was also found to have hypocalcemia. Or disuse given oral calcium supplementation. She was also found to be anemic, workup revealed anemia of chronic disease as well as vitamin B12 deficiency related anemia. She received 1 time dose 1000 mcg cobalamin IM injection. She also received IV iron supplementation for 2 days at 300 mg daily. She was evaluated by Gastroenterology during her stay, her C diff and GI pathogen panel were negative. Gastroenterology planned for outpatient follow up as well as colonoscopy and EGD as outpatient. They are also considering doing a gastric emptying study. However while in the hospital, patient didwell with diet as taking p.r.n. Zofran prior to her eating. I did encourage the patient to have small frequent meals rather than 3 large meals. I also encouraged her to stay hydrated as well. She continues to have some abdominal discomfort, however feels well rested from hospitalization. Ofnote we have not given her any treatment for suspected colitis, as she would still need workup fromGI including possibly a colonoscopy and a biopsy prior to initiating any definite therapy. It is unlikely that her colitis get infectious etiology, and this is likely more inflammatory in nature. She will need follow-up with both her PCP as well as Gastroenterology as outpatient. On day of discharge, patient was feeling well, vitals and physical exam stable.Blood pressure 104/63, pulse 103, temperature 37.4 C (99.3 F), temperature source Temporal Artery, resp. rate 18, weight 58.5 kg (129 lb), SpO2 97%, not currently . She is being discharged home in a stable condition. Operations & Procedures: none Complications: none significant Significant Lab and Imaging Results: Results for orders placed or performed during the hospital encounter of 12/28/23 COMPREHENSIVE METABOLIC PANEL Result Value Ref Range BUN 16 6 - 20 mg/dL Creatinine 0.8 0.5 - 1.0 mg/dL Estimated Glomerular Filtration Rate 86 >=60 mL/min Sodium 136 135 - 146 mmol/L Potassium 2.3 (LL) 3.5 - 5.1 mmol/L Chloride 96 (L) 98 - 107 mmol/L CO2 26 22 - 32 mmol/L Anion Gap 14 7 - 15 mmol/L Glucose 119 70 - 120 mg/dL Albumin 4.3 3.8 - 5.0 g/dL AST 25 10 - 35 U/L Alkaline Phosphatase 105 35 - 130 U/L Bilirubin, Total 0.4 <=1.2 mg/dL Calcium 9.5 8.4 - 10.2 mg/dL Protein 7.2 6.0 - 8.3 g/dL ALT 14 10 - 35 U/L LACTATE Result Value Ref Range Lactate 2.6 (H) 0.4 - 2.0 mmol/L LIPASE Result Value Ref Range Lipase 31 13 - 60 U/L URINALYSIS, REFLEX TO MICROSCOPIC Result Value Ref Range Color, Urine Yellow Light Yellow, Yellow, Dark Yellow Clarity, Urine Clear Clear Glucose, Urine Negative Negative mg/dL Bilirubin, Urine Negative Negative Ketone, Urine Negative Negative mg/dL Specific [place], Urine 1.049 (H) 1.003 - 1.030 Blood, Urine Negative Negative pH, Urine 5.5 5.0 - 7.5 Units Protein, Urine Negative Negative mg/dL Urobilinogen, Urine 0.2 0.2, 1.0 mg/dL Nitrite, Urine Negative Negative Esterase, Urine Trace (A) Negative TROPONIN T, HIGH SENSITIVITY Result Value Ref Range Troponin T, High Sensitivity 8 <=14 ng/L CBC Result Value Ref Range WBC 17.17 (H) 4.00 - 10.80 K/uL RBC 4.74 3.85 - 5.15 M/uL HGB 14.7 12.0 - 15.3 g/dL HCT 40.8 36.0 - 45.2 % MCV 86.1 81.5 - 97.5 fL MCH 31.0 27.0 - 34.0 pg MCHC 36.0 32.0 - 36.0 g/dL RDW 13.4 11.5 - 15.5 % PLT 462 (H) 140 - 400 K/uL MPV 8.8 6.6 - 11.1 fL nRBCs 0 <=0 /100 WBCs DIFFERENTIAL, AUTOMATED Result Value Ref Range WBC 17.17 (H) 4.00 - 10.80 K/uL Neutrophils % 78.2 (H) 40.0 - 75.0 % Lymphocytes % 13.6 (L) 18.0 - 42.0 % Monocytes % 6.6 1.0 - 11.0 % Eosinophils % 0.8 0.0 - 6.0 % Basophils % 0.5 0.0 - 2.0 % Immature Granulocytes % 0.3 0.0 - 2.0 % Absolute Neutrophils 13.43 (H) 1.80 - 7.70 K/uL Absolute Lymphocytes 2.34 1.00 - 4.80 K/ul Absolute Monocytes 1.13 (H) 0.00 - 1.10 K/uL Absolute Eosinophils 0.13 0.00 - 0.70 K/uL Absolute Basophils 0.08 0.00 - 0.20 K/uL Absolute Immature Granulocytes 0.06 0.00 - 0.20 K/uL CLOSTRIDIUM DIFFICILE, PCR Result Value Ref Range [...] Negative Negative Rotavirus by PCR Negative Negative GASTROINTESTINAL PATHOGEN PANEL CULTURE Result Value Ref Range Culture Growth No Aeromonas species or Plesiomonas species isolated. MICROSCOPIC EXAM, URINE Result Value Ref Range RBC, Urine 0-2 0 - 2 /HPF WBC, Urine 3-5 (A) 0 - 2 /HPF Bacteria, Urine 26-50 (A) 0 - 25 /HPF Squamous Epithelial Cells, Urine Many (A) None /HPF SARS-COV-2 (COVID-19), NAAT Result Value Ref Range SARS-CoV-2 (COVID-19) Result Negative Negative MAGNESIUM Result Value Ref Range Magnesium 2.2 1.5 - 2.6 mg/dL PHOSPHORUS Result Value Ref Range Phosphorus 3.0 2.5 - 4.8 mg/dL LACTATE Result Value Ref Range Lactate 1.7 0.4 - 2.0 mmol/L BASIC METABOLIC PANEL Result Value Ref Range BUN 13 6 - 20 mg/dL Creatinine 0.9 0.5 - 1.0 mg/dL Estimated Glomerular Filtration Rate 76 >=60 mL/min Sodium 143 135 - 146 mmol/L Potassium 2.9 (L) 3.5 - 5.1 mmol/L Chloride 107 98 - 107 mmol/L CO2 29 22 - 32 mmol/L Anion Gap 7 7 - 15 mmol/L Glucose 70 70 - 120 mg/dL Calcium 8.4 8.4 - 10.2 mg/dL BASIC METABOLIC PANEL Result Value Ref Range BUN 12 6 - 20 mg/dL Creatinine 0.9 0.5 - 1.0 mg/dL Estimated Glomerular Filtration Rate 80 >=60 mL/min Sodium 141 135 - 146 mmol/L Potassium 3.1 (L) 3.5 - 5.1 mmol/L Chloride 107 98 - 107 mmol/L CO2 25 22 - 32 mmol/L Anion Gap 9 7 - 15 mmol/L Glucose 108 70 - 120 mg/dL Calcium 8.0 (L) 8.4 - 10.2 mg/dL CBC Result Value Ref Range WBC 7.55 4.00 - 10.80 K/uL RBC 3.47 3.85 - 5.15 M/uL HGB 10.6 (L) 12.0 - 15.3 g/dL HCT 30.7 (L) 36.0 - 45.2 % MCV 88.5 81.5 - 97.5 fL MCH 30.5 27.0 - 34.0 pg MCHC 34.5 32.0 - 36.0 g/dL RDW 13.9 11.5 - 15.5 % PLT 307 140 - 400 K/uL MPV 8.5 6.6 - 11.1 fL nRBCs 0 <=0 /100 WBCs MAGNESIUM Result Value Ref Range Magnesium 2.1 1.5 - 2.6 mg/dL PHOSPHORUS Result Value Ref Range Phosphorus 3.8 2.5 - 4.8 mg/dL PROCALCITONIN Result Value Ref Range Procalcitonin 0.11 (H) <0.10 ng/mL CRP (INFLAMMATORY MARKER) Result Value Ref Range CRP (Inflammatory Marker) 16 (H) <=5 mg/L ERYTHROCYTE SEDIMENTATION RATE (ESR) Result Value Ref Range ESR 9 <20 mm/hour IRON SCREEN, INCLUDING TIBC Result Value Ref Range Iron 28 (L) 33 - 151 ug/dL Iron Binding Capacity 279 250 - 425 ug/dL Transferrin Saturation Percent 10 (L) 15 - 55 % FERRITIN Result Value Ref Range Ferritin 45 13 - 150 ng/mL VITAMIN B12 Result Value Ref Range Vitamin B12 203 (L) 232 - 1,245 pg/mL FOLIC ACID Result Value Ref Range Folic Acid 11.5 >4.5 ng/mL RETICULOCYTE PANEL Result Value Ref Range Reticulocyte Percent 1.78 0.80 - 1.90 % Absolute Reticulocyte 62.3 31.3 - 100.1 K/uL Immature Reticuloctye Fraction 15.0 2.5 - 20.6 % Reticulocyte Hemoglobin 32.3 29.7 - 37.4 pg LD Result Value Ref Range LD 201 <=250 U/L HAPTOGLOBIN Result Value Ref Range Haptoglobin 194 30 - 200 mg/dL BASIC METABOLIC PANEL Result Value Ref Range BUN 10 6 - 20 mg/dL Creatinine 0.7 0.5 - 1.0 mg/dL Estimated Glomerular Filtration Rate >90 >=60 mL/min Sodium 143 135 - 146 mmol/L Potassium 3.6 3.5 - 5.1 mmol/L Chloride 108 (H) 98 - 107 mmol/L CO2 25 22 - 32 mmol/L Anion Gap 10 7 - 15 mmol/L Glucose 101 70 - 120 mg/dL Calcium 7.5 (L) 8.4 - 10.2 mg/dL CBC Result Value Ref Range WBC 8.03 4.00 - 10.80 K/uL RBC 3.53 3.85 - 5.15 M/uL HGB 10.9 (L) 12.0 - 15.3 g/dL HCT 31.3 (L) 36.0 - 45.2 % MCV 88.7 81.5 - 97.5 fL MCH 30.9 27.0 - 34.0 pg MCHC 34.8 32.0 - 36.0 g/dL RDW 13.8 11.5 - 15.5 % PLT 339 140 - 400 K/uL MPV 8.6 6.6 - 11.1 fL nRBCs 0 <=0 /100 WBCs MAGNESIUM Result Value Ref Range Magnesium 2.1 1.5 - 2.6 mg/dL PHOSPHORUS Result Value Ref Range Phosphorus 2.7 2.5 - 4.8 mg/dL BASIC METABOLIC PANEL Result Value Ref Range BUN 7 6 - 20 mg/dL Creatinine 0.8 0.5 - 1.0 mg/dL Estimated Glomerular Filtration Rate 89 >=60 mL/min Sodium 138 135 - 146 mmol/L Potassium 3.5 3.5 - 5.1 mmol/L Chloride 103 98 - 107 mmol/L CO2 28 22 - 32 mmol/L Anion Gap 7 7 - 15 mmol/L Glucose 98 70 - 120 mg/dL Calcium 8.7 8.4 - 10.2 mg/dL CBC Result Value Ref Range WBC 8.65 4.00 - 10.80 K/uL RBC 3.60 3.85 - 5.15 M/uL HGB 11.2 (L) 12.0 - 15.3 g/dL HCT 32.6 (L) 36.0 - 45.2 % MCV 90.6 81.5 - 97.5 fL MCH 31.1 27.0 - 34.0 pg MCHC 34.4 32.0 - 36.0 g/dL RDW 13.5 11.5 - 15.5 % PLT 339 140 - 400 K/uL MPV 8.4 6.6 - 11.1 fL nRBCs 0 <=0 /100 WBCs MAGNESIUM Result Value Ref Range Magnesium 1.9 1.5 - 2.6 mg/dL PHOSPHORUS Result Value Ref Range Phosphorus 2.7 2.5 - 4.8 mg/dL TSH WITH FREE T4 IF INDICATED Result Value Ref Range TSH 0.86 0.27 - 4.20 uIU/mL US ABDOMEN LIMITED Final Result PROCEDURE INFORMATION: Exam: US Abdomen, Limited; Right Upper Quadrant Exam date and time: 12/28/2023 4:15 PM Age: 48 years old Clinical indication: Abdominal pain; Additional info: Epigastric and right upper quadrant pain. History of vomiting and bloody bowels TECHNIQUE: Imaging protocol: Real time ultrasound of the abdomen with image documentation. Limited exam focused on the right upper quadrant. COMPARISON: CT ABD/PELVIS W IV CONTRAST - WO ORAL CONTRAST 12/28/2023 4:05 PM FINDINGS: Liver: 0.5 x 0.5 x 0.6 cm hyperechoic nodule in the right hepatic lobe. Gallbladder: Normal. No gallstones. There is no gallbladder wall thickening. Biliary ducts: Normal. No stones. No dilation. Pancreas: The pancreas is poorly seen due to overlying shadowing bowel gas. Right kidney: No hydronephrosis or mass. IMPRESSION IMPRESSION: 1. No acute findings. 2. Subcentimeter hyperechoic lesion in the right hepatic lobe. This is nonspecific with differential including both benign and malignant etiologies. No corresponding abnormality seen on same day CT of the abdomen/pelvis. Consider 6 month follow-up ultrasound or nonemergent liver MRI as clinically warranted. THIS DOCUMENT HAS BEEN ELECTRONICALLY SIGNED BY TREY ANDERSEN MD CT ABD/PELVIS W IV CONTRAST - WO ORAL CONTRAST Final Result PROCEDURE INFORMATION: Exam: CT Abdomen And Pelvis With Contrast Exam date and time: 12/28/2023 4:05 PM Age: 48 years old Clinical indication: Other: Abd pain; Additional info: Abdominal pain, vomiting, diarrhea, blood in vomit and bowels TECHNIQUE: Imaging protocol: Computed tomography of the abdomen and pelvis with contrast. Radiation optimization: All CT scans at this facility use at least one of these dose optimization techniques: automated exposure control; mA and/or kV adjustment per patient size (includes targeted exams where dose is matched to clinical indication); or iterative reconstruction. Contrast material: OPTIRAY 320; Contrast volume: 100 ml; Contrast route: INTRAVENOUS (IV); COMPARISON: MR ABDOMEN ROUTINE 11/19/2021 10:30 AM FINDINGS: Liver: Focal fat deposition along the falciform ligament. Gallbladder and bile ducts: Normal. No calcified stones. No ductal dilation. Pancreas: Normal. No ductal dilation. Spleen: Normal. No splenomegaly. Adrenal glands: Normal. No mass. Kidneys and ureters: Normal. No hydronephrosis. Stomach and bowel: Mild gastric wall thickening. Small bowel is unremarkable. Diffuse mild colonic wall thickening and mucosal hyperenhancement. No obstruction. Appendix: No evidence of appendicitis. Intraperitoneal space: Unremarkable. No free air. No significant fluid collection. Vasculature: Unremarkable. No abdominal aortic aneurysm. Lymph nodes: Prominent scattered mesenteric lymph nodes measuring less than 1 cm in short axis, possibly reactive. Urinary bladder: Unremarkable as visualized. Reproductive: Unremarkable as visualized. Bones/joints: Unremarkable. No acute fracture. Soft tissues: Breast implants. Small fat containing umbilical hernia. IMPRESSION IMPRESSION: Mild gastritis and colitis which are favored infectious or inflammatory in etiology. THIS DOCUMENT HAS BEEN ELECTRONICALLY SIGNED BY TREY ANDERSEN MD XR CHEST 1 VIEW Final Result PROCEDURE INFORMATION: Exam: XR Chest Exam date and time: 12/28/2023 2:16 PM Age: 48 years old Clinical indication: Other: PT reports for 8 mo she hasn't been tolerating oral intake well. Reports she is vomiting up blood and having bloody stool/mucous stool. Reports she is fatigued, bloated, dizzy, disoriented. ; Additional info: Abdominal pain TECHNIQUE: Imaging protocol: Radiologic exam of the chest. Views: 1 view. COMPARISON: CT PULMONARY EMBOLUS W CONTRAST 09/09/2021 7:50 PM FINDINGS: Lungs: Unremarkable. No consolidation. Pleural spaces: Unremarkable. No pleural effusion. No pneumothorax. Heart/Mediastinum: Unremarkable. No cardiomegaly. Bones/joints: Unremarkable. IMPRESSION IMPRESSION: No acute findings. THIS DOCUMENT HAS BEEN ELECTRONICALLY SIGNED BY TREY ANDERSEN MD Results Pending at Discharge: Lab Results Pending at Discharge: BASIC METABOLIC PANEL Routine CBC Routine MAGNESIUM Routine PHOSPHORUS Routine GASTROINTESTINAL PATHOGEN PANEL, STOOL STAT See [facility] for full Linked Orders Report. MEDICATION UPDATES AT DISCHARGE START taking these medications INSTRUCTIONS calcium CARBonate 750 MG chewable tablet Commonly known as: Tums E-X Take 2 Tablets by mouth in the morning. CHANGE how you take these medications INSTRUCTIONS ondansetron ODT 4 MG Tbdp Commonly known as: Zofran What changed: reasons to take this Place 1 Tablet on tongue every 8 hours as needed for Nausea or Vomiting. dissolve on tongue. Potassium Chloride ER 20 MEQ Tbcr What changed: how much to take Take 2 Tablets by mouth in the morning and 2 Tablets before bedtime. CONTINUE taking these medications INSTRUCTIONS clonazePAM 1 MG Tablet Commonly known as: KlonoPIN Notes to patient: Used to treat panic attacks and seizures Take 1 Tablet by mouth in the morning and 1 Tablet before bedtime. Desvenlafaxine Succinate ER 100 MG Tb24 Commonly known as: Pristiq Notes to patient: Used to treat depression Take 1 Tablet by mouth in the morning. Linzess 290 MCG Capsule Generic drug: linaCLOtide Notes to patient: Used to treat constipation and irritable bowel syndrome with constipation Take 1 Capsule by mouth daily before breakfast. methylPHENIDATE 20 MG Tablet Commonly known as: Ritalin Notes to patient: Used to treat attention deficit problems with hyperactivity and narcolepsy Take 1 Tablet by mouth in the morning and 1 Tablet at noon and 1 Tablet in the evening. NexIUM 40 MG Cpdr Generic drug: Esomeprazole Magnesium Notes to patient: Used to treat or prevent GI (gastrointestinal) ulcers, gastroesophageal reflux (GERD, acid reflux), and heartburn Take 1 Capsule by mouth daily before breakfast. QUEtiapine 200 MG Tablet Commonly known as: SEROquel Notes to patient: Used to treat bipolar disorder, schizophrenia, and depression Take by mouth 1 Tablet before bedtime. vitamin b-12 1000 MCG/ML injection Commonly known as: Cyanocobalamin Notes to patient: Used to help with some kinds of anemia and to treat or prevent low vitamin B12 Inject 1,000 mcg into a large muscle every 30 days. Vitron-C 65-125 MG Tablet Generic drug: Iron-Vitamin C 65-125 mg per tab Notes to patient: an iron supplement used to treat or prevent low blood levels of iron (such as those caused by anemia or during ). Ascorbic acid (vitamin C) improves the absorption of iron from the stomach. Take 1 Tablet by mouth in the morning. STOP taking these medications Famotidine 40 MG Tablet Commonly known as: Pepcid Ibuprofen 600 MG Tablet Commonly known as: Motrin Magnesium Oxide 400 MG Capsule prochlorperazine 5 MG Tablet Commonly known as: Compazine SCHEDULED FOLLOW-UP: Future Appointments This patient does not currently have any appointments scheduled. Outpatient Follow Up Adult Gastroenterology Referral Op Other Information Indwelling Devices: LINES ALL Duration Peripheral Line Left;Lower Arm 20 Gauge 3 days Vital Signs (last recorded): Most Recent Systolic BP: 104 mmHg (12/31/23 0800) Most Recent Diastolic BP: 63 mmHg (12/31/23 0800) Pulse: 103 (12/31/23 0800) Resp: 18 (12/31/23 0800) Most Recent Temperature: 37.39 C (12/31/23 0800) Weight: 58.5 kg (129 lb) (12/28/23 1824) SpO2: 97 % (12/31/23 08) Allergies: Erythromycin Activity: as tolerated Diet: age appropriate diet and small frequent. Code Status: Full Code Condition on Discharge: stable Isolation status: None Cognition: normal HOSPITAL CONSULTS ORDERED: GASTROENTEROLOGY CONSULT IP REFERRING PHYSICIAN: Ref: SELF[[id number]] NO STRE[address] ADDRESS AVAILABLE None (office) None (fax) PRIMARY CARE PROVIDER: PCP: Laura Tse MD [id number] [facility] / [place] [phone] (office) [phone] (fax) Note: To contact a physician responsible for this patients hospital care, please call [facility] [phone]. I spent a total of 35 minutes coordinating, documenting, and providing care for this patient excluding time spent in the performance of separately billed services. documented in this encounter Discharge Instructions * Discharge Instr - AVS* Bowen Gonzalez MD - 12/31/2023 9:44 AM EDT Discharge Date: 12/31/2023 The information below provides you with the instructions and the list of medications you need to betaking following discharge from the hospital. If you have any questions, please ask before leaving. If you have questions after leaving, you can reach us at the numbers below. YOUR HOSPITAL PROVIDERS: Discharging Provider: Bowen Gonzalez MD Provider Department: Hospital Medicine To reach this Provider Monday through Monday (8:00 AM to 4:30 PM) for any questions or test results: Call [phone] For after-hours concerns: Call [phone] and have your provider paged, or the provider motion picture operator for the Department of Hospital Medicine paged. [...] available, you can go to your local [facility] or [facility] during their business hours. In an EMERGENCY situation: Call [phone] or go to the nearest emergency room. A BRIEF SUMMARY OF YOUR HOSPITAL STAY: You came to the hospital with: complaint of diarrhea, nausea, abd discomfort. Your main diagnosis at discharge was: Colitis, likely inflammatory, Hypokalemia, Hypocalcemia, Anemia of chronic disease. Operations & Procedures performed: none Complications: none significant Inpatient test results that are pending at discharge: none Advance Directive Documented: Advance Directive Does the Patient have an Advance Directive? No YOUR FOLLOW UP APPOINTMENTS: Primary Care Provider Information: PCP: Laura Tse MD [facility] / [place] [phone] (office) [phone] (fax) An appointment was requested with your PCP (Laura Tse MD) within 3 days. Gastroenterology in1 week. (Please take this form to this visit with your primary care physician.) You need the following studies in the future: BMP: date - in 5-7 days and CBC: date - in 5-7 days. To be ordered and followed up by PCP. INSTRUCTIONS: Diet: Normal diet, small frequent meals Activity: As tolerated, No strenuous activity for 2 weeks, and No lifting or pushing or pulling more than 10 lbs for 2 weeks. Additional Instructions: - Call your primary care physician or seek medical attention if you have worsening cough, shortnessof breath, chest pain, abdominal pain, diarrhea, nausea, vomiting. - Do not use alcohol products in anyway! - Use caution when standing or walking since you are at an increased risk for falls - Do not take [id number] NSAIDs (nonsteroid anti-inflammatory medications); ie. Advil, Motrin, Ibuprofen, etc. documented in this encounter Progress Notes * Karena Bermudez RPh - 12/31/2023 9:48 AM EDT PHARMACY DISCHARGE MEDICATION RECONCILIATION REVIEW [facility] [id number] Name: Gavi Sim Location: [facility] [id number]-[id number] Date: 12/31/2023 Time: 9:48 AM This discharge medication reconciliation was reviewed by a pharmacist and no corrections or interventions were required. * Bowen Gonzalez MD - 12/30/2023 11:54 AM EDT Images from the original note were not included. [facility] [id number] SUMMARY: Gavi Sim 48 year old female with a PMHx of depression, anxiety, ADHD, hypokalemia presented to [facility] ED for abdominal pain, nausea, and vomiting. This has been ongoing for 8+ months. Admitted to telemetry observation for colitis (inflammatory vs infectious) and hypokalemia. INTERVAL HISTORY: Patient was seen and evaluated earlier this morning. She is resting in bed. She reports feeling somewhat improved, however she continues to episodes of vomiting after meals. She has not had a bowel yet since yesterday. He appears quite anxious, in his concerned but present condition. He does however thought that she feels well rested while she has been in the hospital. She also continues to report bilateral head heaviness/pain and discomfort. She does not think that Tylenol is helping. Objective Physical Exam Most Recent Vital Signs: BP: 98 mmHg/69 mmHg (12/30/23 075) Pulse: 101 (12/30/23750) Temp: 37 C (12/30/23 075) Temp Summary: Temp Min: 36.6 C (97.9 F) Max: 37.3 C (99.1 F) SpO2: 97 % (12/30/23750) O2 flow rate: Supplemental O2 Delivery: Room Air, None (12/30/23750) Constitutional: Anxious appearing HEENT: normal: normocephalic, atraumatic; no masses, tenderness, or adenopathy CV: S1-S2 heard, tachycardic, no obvious murmurs appreciated. Chest: normal respiratory effort, breath sounds normal, chest wall normal Abdomen: soft, normal bowel sounds, no mass, no tenderness, no organomegaly Extremities: no edema, no clubbing, no cyanosis Skin: warm, dry, intact: Peripheral Line Left;Lower Arm 20 Gauge (Active) Number of days: 2 STUDIES: Encounter Orders Labs and other studies reviewed with pertinent findings noted below: Recent Results (from the past 24 hour(s)) BASIC METABOLIC PANEL Collection Time: 12/30/23 5:21 AM Result Value Ref Range BUN 10 6 - 20 mg/dL Creatinine 0.7 0.5 - 1.0 mg/dL Estimated Glomerular Filtration Rate >90 >=60 mL/min Sodium 143 135 - 146 mmol/L Potassium 3.6 3.5 - 5.1 mmol/L Chloride 108 (H) 98 - 107 mmol/L CO2 25 22 - 32 mmol/L Anion Gap 10 7 - 15 mmol/L Glucose 101 70 - 120 mg/dL Calcium 7.5 (L) 8.4 - 10.2 mg/dL CBC Collection Time: 12/30/23 5:21 AM Result Value Ref Range WBC 8.03 4.00 - 10.80 K/uL RBC 3.53 3.85 - 5.15 M/uL HGB 10.9 (L) 12.0 - 15.3 g/dL HCT 31.3 (L) 36.0 - 45.2 % MCV 88.7 81.5 - 97.5 fL MCH 30.9 27.0 - 34.0 pg MCHC 34.8 32.0 - 36.0 g/dL RDW 13.8 11.5 - 15.5 % PLT 339 140 - 400 K/uL MPV 8.6 6.6 - 11.1 fL nRBCs 0 <=0 /100 WBCs MAGNESIUM Collection Time: 12/30/23 5:21 AM Result Value Ref Range Magnesium 2.1 1.5 - 2.6 mg/dL PHOSPHORUS Collection Time: 12/30/23 5:21 AM Result Value Ref Range Phosphorus 2.7 2.5 - 4.8 mg/dL ] Recent Cultures (2 Weeks) 12/29/2023 11/10/2021 07/19/2021 07/19/2021 07/19/2021 07/13/2021 10/15/2019 10/15/2019 1:19 AM 12:47 PM 3:30 PM 3:14 PM 1:07 PM 1:08 PM 11:28 AM 11:20 AM SPECIMEN DESCRIPTION -- -- -- -- -- -- BLOOD BLOOD CULTURE -- -- -- -- -- -- NO GROWTH NO GROWTH CULTURE GROWTH -- -- No growth -- -- -- -- -- GASTROINTESTINAL STOOL CULTURE GROWTH No Aeromonas species or Plesiomonas species isolated. -- -- -- -- -- -- -- QUANT URINE CULTURE GROWTH -- No significant growth -- < 100 colonies/ml (no growth) No significant growth No significant growth -- -- Assessment and Plan IMPRESSION : Principal Problem: Colitis Active Problems: Anemia Esophageal reflux Major depressive disorder Hypokalemia Attention deficit hyperactivity disorder, predominantly inattentive type Generalized anxiety disorder Chronic constipation Gastritis Resolved Problems: * No resolved hospital problems. * DIFFERENTIAL AND PLAN: - based on findings of, patient appears to be having some form of colitis. It is likely inflammatory in nature. GI pathogen panel and C diff testing have been negative so far. -appreciate GI input. They are planning for outpatient colonoscopy and EGD. They also suspect that she may need a gastric emptying study. -patient is anemic with a order appears to be anemia of chronic disease. I have ordered some IV iron supplementation for today. Of note a vitamin B12 level is also low. I have ordered a IM one time dose of 1000 mcg scopolamine. She would likely benefit from outpatient supplementation of both. -her potassium level seems to have normalized. We will continue p.o. replacement as ordered. -she is also hypocalcemic. Which would explain why she is having some of the tingling numbness in her hands and feet as well as sometimes in her temples. I have ordered oral supplementation of the same. She will likely need this on discharge as well. -we will hold off on further IV fluids. Encourage oral hydration. -due to ongoing nausea vomiting, I have recommended the patient have small frequent meals on discharge. For now while she is in the hospital, I have recommended that we give her a dose antinausea medicine 15-20 minutes prior to her meals. See if she can tolerate her meals better. -continue encouraging ambulation as tolerated in the hallway and in the room. -as long as the patient continues to remain relatively stable over the next 24 hours, we can discharge her home. PHARMACOLOGIC VTE PROPHYLAXIS: Enoxaparin CODE STATUS: Full Code EXPECTED DISCHARGE DATE: No information available I spent a total of 45 minutes coordinating, documenting, and providing care for this patient excluding time spent in the performance of separately billed services. * Bowen Gonzalez MD - 12/29/2023 11:19 AM EDT Images from the original note were not included. [facility] [id number] Gavi Sim 48 year old female with a PMHx of depression, anxiety, ADHD, hypokalemia presented to [facility] ED for abdominal pain, nausea, and vomiting. This has been ongoing for 8+ months. Admitted to telemetry observation for colitis (inflammatory vs infectious) and hypokalemia. INTERVAL HISTORY: Patient was seen and evaluated earlier this morning, she was resting in bed, reporting severe head heaviness and dizziness. She notes that her she has been having ongoing diarrhea, nausea vomiting. This morning however she did eat her breakfast and knows she is tolerated it so far. Patient appears to be anxious, and is quite concerned about her overall GI condition. Objective Physical Exam Most Recent Vital Signs: BP: 92 mmHg/59 mmHg (12/29/23 1054) Pulse: 112 (12/29/23 1054) Temp: 36.89 C (12/29/23 1054) Temp Summary: Temp Min: 36.7 C (98.1 F) Max: 37.3 C (99.1 F) SpO2: 90 % (12/29/23 1054) O2 flow rate: Supplemental O2 Delivery: Room Air, None (12/29/23 1054) Constitutional: Anxious appearing HEENT: normal: normocephalic, atraumatic; no masses, tenderness, or adenopathy CV: S1-S2 heard, tachycardic, no obvious murmurs appreciated. Chest: normal respiratory effort, breath sounds normal, chest wall normal Abdomen: soft, normal bowel sounds, no mass, no tenderness, no organomegaly Extremities: no edema, no clubbing, no cyanosis Skin: warm, dry, intact: Peripheral Line Left;Lower Arm 20 Gauge (Active) Number of days: 1 STUDIES: Encounter Orders Labs and other studies reviewed with pertinent findings noted below: Results for orders placed or performed during the hospital encounter of 12/28/23 COMPREHENSIVE METABOLIC PANEL Result Value Ref Range BUN 16 6 - 20 mg/dL Creatinine 0.8 0.5 - 1.0 mg/dL Estimated Glomerular Filtration Rate 86 >=60 mL/min Sodium 136 135 - 146 mmol/L Potassium 2.3 (LL) 3.5 - 5.1 mmol/L Chloride 96 (L) 98 - 107 mmol/L CO2 26 22 - 32 mmol/L Anion Gap 14 7 - 15 mmol/L Glucose 119 70 - 120 mg/dL Albumin 4.3 3.8 - 5.0 g/dL AST 25 10 - 35 U/L Alkaline Phosphatase 105 35 - 130 U/L Bilirubin, Total 0.4 <=1.2 mg/dL Calcium 9.5 8.4 - 10.2 mg/dL Protein 7.2 6.0 - 8.3 g/dL ALT 14 10 - 35 U/L LACTATE Result Value Ref Range Lactate 2.6 (H) 0.4 - 2.0 mmol/L LIPASE Result Value Ref Range Lipase 31 13 - 60 U/L URINALYSIS, REFLEX TO MICROSCOPIC Result Value Ref Range Color, Urine Yellow Light Yellow, Yellow, Dark Yellow Clarity, Urine Clear Clear Glucose, Urine Negative Negative mg/dL Bilirubin, Urine Negative Negative Ketone, Urine Negative Negative mg/dL Specific [place], Urine 1.049 (H) 1.003 - 1.030 Blood, Urine Negative Negative pH, Urine 5.5 5.0 - 7.5 Units Protein, Urine Negative Negative mg/dL Urobilinogen, Urine 0.2 0.2, 1.0 mg/dL Nitrite, Urine Negative Negative Esterase, Urine Trace (A) Negative TROPONIN T, HIGH SENSITIVITY Result Value Ref Range Troponin T, High Sensitivity 8 <=14 ng/L CBC Result Value Ref Range WBC 17.17 (H) 4.00 - 10.80 K/uL RBC 4.74 3.85 - 5.15 M/uL HGB 14.7 12.0 - 15.3 g/dL HCT 40.8 36.0 - 45.2 % MCV 86.1 81.5 - 97.5 fL MCH 31.0 27.0 - 34.0 pg MCHC 36.0 32.0 - 36.0 g/dL RDW 13.4 11.5 - 15.5 % PLT 462 (H) 140 - 400 K/uL MPV 8.8 6.6 - 11.1 fL nRBCs 0 <=0 /100 WBCs DIFFERENTIAL, AUTOMATED Result Value Ref Range WBC 17.17 (H) 4.00 - 10.80 K/uL Neutrophils % 78.2 (H) 40.0 - 75.0 % Lymphocytes % 13.6 (L) 18.0 - 42.0 % Monocytes % 6.6 1.0 - 11.0 % Eosinophils % 0.8 0.0 - 6.0 % Basophils % 0.5 0.0 - 2.0 % Immature Granulocytes % 0.3 0.0 - 2.0 % Absolute Neutrophils 13.43 (H) 1.80 - 7.70 K/uL Absolute Lymphocytes 2.34 1.00 - 4.80 K/ul Absolute Monocytes 1.13 (H) 0.00 - 1.10 K/uL Absolute Eosinophils 0.13 0.00 - 0.70 K/uL Absolute Basophils 0.08 0.00 - 0.20 K/uL Absolute Immature Granulocytes 0.06 0.00 - 0.20 K/uL CLOSTRIDIUM DIFFICILE, PCR Result Value Ref Range Stool Consistency Liquid Clostridium difficile Result Negative Negative. No C. difficile toxin B gene DNA detected by PCR (Amplified Probe). MICROSCOPIC EXAM, URINE Result Value Ref Range RBC, Urine 0-2 0 - 2 /HPF WBC, Urine 3-5 (A) 0 - 2 /HPF Bacteria, Urine 26-50 (A) 0 - 25 /HPF Squamous Epithelial Cells, Urine Many (A) None /HPF SARS-COV-2 (COVID-19), NAAT Result Value Ref Range SARS-CoV-2 (COVID-19) Result Negative Negative MAGNESIUM Result Value Ref Range Magnesium 2.2 1.5 - 2.6 mg/dL PHOSPHORUS Result Value Ref Range Phosphorus 3.0 2.5 - 4.8 mg/dL LACTATE Result Value Ref Range Lactate 1.7 0.4 - 2.0 mmol/L BASIC METABOLIC PANEL Result Value Ref Range BUN 13 6 - 20 mg/dL Creatinine 0.9 0.5 - 1.0 mg/dL Estimated Glomerular Filtration Rate 76 >=60 mL/min Sodium 143 135 - 146 mmol/L Potassium 2.9 (L) 3.5 - 5.1 mmol/L Chloride 107 98 - 107 mmol/L CO2 29 22 - 32 mmol/L Anion Gap 7 7 - 15 mmol/L Glucose 70 70 - 120 mg/dL Calcium 8.4 8.4 - 10.2 mg/dL BASIC METABOLIC PANEL Result Value Ref Range BUN 12 6 - 20 mg/dL Creatinine 0.9 0.5 - 1.0 mg/dL Estimated Glomerular Filtration Rate 80 >=60 mL/min Sodium 141 135 - 146 mmol/L Potassium 3.1 (L) 3.5 - 5.1 mmol/L Chloride 107 98 - 107 mmol/L CO2 25 22 - 32 mmol/L Anion Gap 9 7 - 15 mmol/L Glucose 108 70 - 120 mg/dL Calcium 8.0 (L) 8.4 - 10.2 mg/dL CBC Result Value Ref Range WBC 7.55 4.00 - 10.80 K/uL RBC 3.47 3.85 - 5.15 M/uL HGB 10.6 (L) 12.0 - 15.3 g/dL HCT 30.7 (L) 36.0 - 45.2 % MCV 88.5 81.5 - 97.5 fL MCH 30.5 27.0 - 34.0 pg MCHC 34.5 32.0 - 36.0 g/dL RDW 13.9 11.5 - 15.5 % PLT 307 140 - 400 K/uL MPV 8.5 6.6 - 11.1 fL nRBCs 0 <=0 /100 WBCs MAGNESIUM Result Value Ref Range Magnesium 2.1 1.5 - 2.6 mg/dL PHOSPHORUS Result Value Ref Range Phosphorus 3.8 2.5 - 4.8 mg/dL PROCALCITONIN Result Value Ref Range Procalcitonin 0.11 (H) <0.10 ng/mL CRP (INFLAMMATORY MARKER) Result Value Ref Range CRP (Inflammatory Marker) 16 (H) <=5 mg/L RETICULOCYTE PANEL Result Value Ref Range Reticulocyte Percent 1.78 0.80 - 1.90 % Absolute Reticulocyte 62.3 31.3 - 100.1 K/uL Immature Reticuloctye Fraction 15.0 2.5 - 20.6 % Reticulocyte Hemoglobin 32.3 29.7 - 37.4 pg LD Result Value Ref Range LD 201 <=250 U/L US ABDOMEN LIMITED Final Result PROCEDURE INFORMATION: Exam: US Abdomen, Limited; Right Upper Quadrant Exam date and time: 12/28/2023 4:15 PM Age: 48 years old Clinical indication: Abdominal pain; Additional info: Epigastric and right upper quadrant pain. History of vomiting and bloody bowels TECHNIQUE: Imaging protocol: Real time ultrasound of the abdomen with image documentation. Limited exam focused on the right upper quadrant. COMPARISON: CT ABD/PELVIS W IV CONTRAST - WO ORAL CONTRAST 12/28/2023 4:05 PM FINDINGS: Liver: 0.5 x 0.5 x 0.6 cm hyperechoic nodule in the right hepatic lobe. Gallbladder: Normal. No gallstones. There is no gallbladder wall thickening. Biliary ducts: Normal. No stones. No dilation. Pancreas: The pancreas is poorly seen due to overlying shadowing bowel gas. Right kidney: No hydronephrosis or mass. IMPRESSION IMPRESSION: 1. No acute findings. 2. Subcentimeter hyperechoic lesion in the right hepatic lobe. This is nonspecific with differential including both benign and malignant etiologies. No corresponding abnormality seen on same day CT of the abdomen/pelvis. Consider 6 month follow-up ultrasound or nonemergent liver MRI as clinically warranted. THIS DOCUMENT HAS BEEN ELECTRONICALLY SIGNED BY TREY ANDERSEN MD CT ABD/PELVIS W IV CONTRAST - WO ORAL CONTRAST Final Result PROCEDURE INFORMATION: Exam: CT Abdomen And Pelvis With Contrast Exam date and time: 12/28/2023 4:05 PM Age: 48 years old Clinical indication: Other: Abd pain; Additional info: Abdominal pain, vomiting, diarrhea, blood in vomit and bowels TECHNIQUE: Imaging protocol: Computed tomography of the abdomen and pelvis with contrast. Radiation optimization: All CT scans at this facility use at least one of these dose optimization techniques: automated exposure control; mA and/or kV adjustment per patient size (includes targeted exams where dose is matched to clinical indication); or iterative reconstruction. Contrast material: OPTIRAY 320; Contrast volume: 100 ml; Contrast route: INTRAVENOUS (IV); COMPARISON: MR ABDOMEN ROUTINE 11/19/2021 10:30 AM FINDINGS: Liver: Focal fat deposition along the falciform ligament. Gallbladder and bile ducts: Normal. No calcified stones. No ductal dilation. Pancreas: Normal. No ductal dilation. Spleen: Normal. No splenomegaly. Adrenal glands: Normal. No mass. Kidneys and ureters: Normal. No hydronephrosis. Stomach and bowel: Mild gastric wall thickening. Small bowel is unremarkable. Diffuse mild colonic wall thickening and mucosal hyperenhancement. No obstruction. Appendix: No evidence of appendicitis. Intraperitoneal space: Unremarkable. No free air. No significant fluid collection. Vasculature: Unremarkable. No abdominal aortic aneurysm. Lymph nodes: Prominent scattered mesenteric lymph nodes measuring less than 1 cm in short axis, possibly reactive. Urinary bladder: Unremarkable as visualized. Reproductive: Unremarkable as visualized. Bones/joints: Unremarkable. No acute fracture. Soft tissues: Breast implants. Small fat containing umbilical hernia. IMPRESSION IMPRESSION: Mild gastritis and colitis which are favored infectious or inflammatory in etiology. THIS DOCUMENT HAS BEEN ELECTRONICALLY SIGNED BY TREY ANDERSEN MD XR CHEST 1 VIEW Final Result PROCEDURE INFORMATION: Exam: XR Chest Exam date and time: 12/28/2023 2:16 PM Age: 48 years old Clinical indication: Other: PT reports for 8 mo she hasn't been tolerating oral intake well. Reports she is vomiting up blood and having bloody stool/mucous stool. Reports she is fatigued, bloated, dizzy, disoriented. ; Additional info: Abdominal pain TECHNIQUE: Imaging protocol: Radiologic exam of the chest. Views: 1 view. COMPARISON: CT PULMONARY EMBOLUS W CONTRAST 09/09/2021 7:50 PM FINDINGS: Lungs: Unremarkable. No consolidation. Pleural spaces: Unremarkable. No pleural effusion. No pneumothorax. Heart/Mediastinum: Unremarkable. No cardiomegaly. Bones/joints: Unremarkable. IMPRESSION IMPRESSION: No acute findings. THIS DOCUMENT HAS BEEN ELECTRONICALLY SIGNED BY TREY ANDERSEN MD Assessment and Plan IMPRESSION : Principal Problem: Colitis Active Problems: Esophageal reflux Major depressive disorder Hypokalemia Attention deficit hyperactivity disorder, predominantly inattentive type Generalized anxiety disorder Chronic constipation Gastritis Resolved Problems: * No resolved hospital problems. * DIFFERENTIAL AND PLAN: - Based on findings for so far, patient appears to be having some form of colitis. It is unclear ifthis is infectious or inflammatory. However given the fact that the patient has been having symptoms ongoing about 8 months, I suspect this is more inflammatory in nature. -appreciate GI input. Plan for outpatient colonoscopy and EGD. Once she is stable. - C diff testing is negative, GI pathogen panel is pending. - patient is anemic, as evidenced by drop in hemoglobin since admission. The significant drop is likely not acute as I think her initial hemoglobin is falsely elevated due to severe dehydration. I have ordered anemia workup and this is pending. Reticulocyte count was ordered and reviewed by me, it isn't normal. Her LDH is also normal. Rest of the workup is pending. - electrolyte replacement to continue. Potassium replacement to continue with oral doses. - IV fluids via Isolyte to be continued. Rate changed to 150 mL/hour for 10 hours. - continue monitoring in med surg unit. Encourage ambulation as tolerated. - plan discharge in 24-48 hours based on clinical stability. PHARMACOLOGIC VTE PROPHYLAXIS: Enoxaparin CODE STATUS: Full Code EXPECTED DISCHARGE DATE: No information available I spent a total of 40 minutes coordinating, documenting, and providing care for this patient excluding time spent in the performance of separately billed services. documented in this encounter H&P Notes * Raquel Craig PA-C - 12/28/2023 5:33 PM EDT Images from the original note were not included. [facility] Hospital Medicine - H&P History obtained from: Patient, patient's family, and ED provider. PRESENTING PROBLEM: abdominal pain HPI: Gavi Sim 48 year old female with a PMHx of depression, anxiety, ADHD, hypokalemia [facility] for abdominal pain, nausea, and vomiting. This has been ongoing for 8+ months. Reports vomiting every times she eats. Reports worsening vomiting with streaks of blood in it. Stool has mucusand blood. Pain is a cramping type abdominal pain, lower and upper + ruq. Feels like she's unable to fully empty her bowels. Reports BMs are very small. Reports she'll go days without a BM, and then one day she go 20+ times a day. Decreased oral intake. No family history of ulcerative colitis or crohns. Per EMR, patient had a colonoscopy in February of 2023, two polyps were removed. Biposy results showed Tubular adenoma, with additional hyperplastic polyp. She has not follow up with GI. I spoke with the ED provider, ED course included: Patient is tachycardic in the ED. Labs reveal a leukocytosis of 17K, potassium of 2.3, lactate 2.6. CT abd/pelvis shows mild gastritis and colitis (infectious vs inflammatory). Patient given 1L of NSS bolus, zofran and morphine, potassium 10meq IV x1 and potassium 20meq PO in the ED. 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/1998 HGSIL Anxiety Depressive disorder, not elsewhere classified Dysthymic disorder Esophageal reflux Fibromyalgia Hyperlipidemia Other vitamin B12 deficiency anemia Vitamin D deficiency Past Surgical History: Procedure Laterality Date CARPAL TUNNEL SYN COLONOSCOPY, DIAGNOSTIC (RECTUM) N/A 03/02/2023 diverticulosis/hemorrhoids/biopsies show adenomatous polyps/recall 5 years/COLONOSCOPY FLEXIBLE PROXIMAL DIAGNOSTIC performed by Ata Valero MD at ENDOSCOPY [facility] COLPSCPY CERVIX W/LOOP ELECT 07/05/1999 CRYOCAUTERY OF CERVIX 08/04/2000 CYSTO/URETERO W/LITHOTRIPSY Left 07/19/2021 CYSTOURETHROSCOPY URETEROSCOPY WITH LITHOTRIPSY AND STENT INSERTION performed by Calvin Woods MD at OR [facility] CYSTOSCOPY/DILATE BLADDER DIALATED URETHRA EGD, FLEXIBLE, DIAGNOSTIC N/A 11/10/2016 normal/ESOPHAGOGASTRODUODENOSCOPY (EGD), FLEXIBLE, TRANSORAL, DIAGNOSTIC performed by Eduardo Rees MD at OR [facility] ENLARGEMENT OF BREAST W/O IMPLANT Bilateral 2007 saline behind the muscle REMOVAL OF TONSILS, UNDER AGE 12 1984 AGE NOT SPECIFIED TOOTH ROOT REMOVAL 1997 WISDOM Family History Problem Relation Age of Onset Diabetes Mother diet controlled Cancer Father Other (HEART ATTACH) Other Hypertension Other Diabetes Other Other (ADDICTION) Other ALCOHOL Other (Other) Other unaware of any family hx of skin related ca or disease As above otherwise non-contributory Social History Tobacco Use Smoking status: Never Smokeless tobacco: Never Tobacco comments: DENIES Vaping Use Vaping Use: Never used Substance Use Topics Alcohol use: No Comment: rare Drug use: No Comment: DENIES MEDICATIONS: Prior to admission medications have been reviewed. ALLERGIES: Erythromycin ROS: Review of Systems Constitutional: Negative for fever. Respiratory: Negative for shortness of breath. Cardiovascular: Negative for chest pain. Gastrointestinal: Positive for abdominal pain, blood in stool, diarrhea, nausea and vomiting. Genitourinary: Negative for difficulty urinating. Objective Physical Exam Most Recent Vital Signs: BP: 116 mmHg/71 mmHg (12/28/23 1730) Pulse: 100 (12/28/23 1730) Temp: 37 C (12/28/23 1355) Temp Summary: Temp Min: 37 C (98.6 F) Max: 37 C (98.6 F) SpO2: 100 % (12/28/23 1355) O2 flow rate: Supplemental O2 Delivery: Room Air, None (12/28/23 1355) Physical Exam Vitals and nursing note reviewed. Constitutional: Appearance: Normal appearance. She is ill-appearing. HENT: Head: Normocephalic and atraumatic. Mouth/Throat: Mouth: Mucous membranes are dry. Cardiovascular: Rate and Rhythm: Normal rate and regular rhythm. Pulmonary: Effort: Pulmonary effort is normal. No respiratory distress. Breath sounds: Normal breath sounds. No wheezing or rhonchi. Abdominal: General: Bowel sounds are normal. Palpations: Abdomen is soft. Tenderness: There is generalized abdominal tenderness. Musculoskeletal: Right lower leg: No edema. Left lower leg: No edema. Skin: General: Skin is warm and dry. Capillary Refill: Capillary refill takes less than 2 seconds. Neurological: General: No focal deficit present. Mental Status: She is alert and oriented to person, place, and time. STUDIES: I personally reviewed previous medical records. Labs and other studies personally reviewed by me with pertinent findings noted below: Results for orders placed or performed during the hospital encounter of 12/28/23 COMPREHENSIVE METABOLIC PANEL Result Value Ref Range BUN 16 6 - 20 mg/dL Creatinine 0.8 0.5 - 1.0 mg/dL Estimated Glomerular Filtration Rate 86 >=60 mL/min Sodium 136 135 - 146 mmol/L Potassium 2.3 (LL) 3.5 - 5.1 mmol/L Chloride 96 (L) 98 - 107 mmol/L CO2 26 22 - 32 mmol/L Anion Gap 14 7 - 15 mmol/L Glucose 119 70 - 120 mg/dL Albumin 4.3 3.8 - 5.0 g/dL AST 25 10 - 35 U/L Alkaline Phosphatase 105 35 - 130 U/L Bilirubin, Total 0.4 <=1.2 mg/dL Calcium 9.5 8.4 - 10.2 mg/dL Protein 7.2 6.0 - 8.3 g/dL ALT 14 10 - 35 U/L LACTATE Result Value Ref Range Lactate 2.6 (H) 0.4 - 2.0 mmol/L LIPASE Result Value Ref Range Lipase 31 13 - 60 U/L URINALYSIS, REFLEX TO MICROSCOPIC Result Value Ref Range Color, Urine Yellow Light Yellow, Yellow, Dark Yellow Clarity, Urine Clear Clear Glucose, Urine Negative Negative mg/dL Bilirubin, Urine Negative Negative Ketone, Urine Negative Negative mg/dL Specific Hammond, Urine 1.049 (H) 1.003 - 1.030 Blood, Urine Negative Negative pH, Urine 5.5 5.0 - 7.5 Units Protein, Urine Negative Negative mg/dL Urobilinogen, Urine 0.2 0.2, 1.0 mg/dL Nitrite, Urine Negative Negative Esterase, Urine Trace (A) Negative TROPONIN T, HIGH SENSITIVITY Result Value Ref Range Troponin T, High Sensitivity 8 <=14 ng/L CBC Result Value Ref Range WBC 17.17 (H) 4.00 - 10.80 K/uL RBC 4.74 3.85 - 5.15 M/uL HGB 14.7 12.0 - 15.3 g/dL HCT 40.8 36.0 - 45.2 % MCV 86.1 81.5 - 97.5 fL MCH 31.0 27.0 - 34.0 pg MCHC 36.0 32.0 - 36.0 g/dL RDW 13.4 11.5 - 15.5 % PLT 462 (H) 140 - 400 K/uL MPV 8.8 6.6 - 11.1 fL nRBCs 0 <=0 /100 WBCs DIFFERENTIAL, AUTOMATED Result Value Ref Range WBC 17.17 (H) 4.00 - 10.80 K/uL Neutrophils % 78.2 (H) 40.0 - 75.0 % Lymphocytes % 13.6 (L) 18.0 - 42.0 % Monocytes % 6.6 1.0 - 11.0 % Eosinophils % 0.8 0.0 - 6.0 % Basophils % 0.5 0.0 - 2.0 % Immature Granulocytes % 0.3 0.0 - 2.0 % Absolute Neutrophils 13.43 (H) 1.80 - 7.70 K/uL Absolute Lymphocytes 2.34 1.00 - 4.80 K/ul Absolute Monocytes 1.13 (H) 0.00 - 1.10 K/uL Absolute Eosinophils 0.13 0.00 - 0.70 K/uL Absolute Basophils 0.08 0.00 - 0.20 K/uL Absolute Immature Granulocytes 0.06 0.00 - 0.20 K/uL MICROSCOPIC EXAM, URINE Result Value Ref Range RBC, Urine 0-2 0 - 2 /HPF WBC, Urine 3-5 (A) 0 - 2 /HPF Bacteria, Urine 26-50 (A) 0 - 25 /HPF Squamous Epithelial Cells, Urine Many (A) None /HPF US ABDOMEN LIMITED Final Result PROCEDURE INFORMATION: Exam: US Abdomen, Limited; Right Upper Quadrant Exam date and time: 12/28/2023 4:15 PM Age: 48 years old Clinical indication: Abdominal pain; Additional info: Epigastric and right upper quadrant pain. History of vomiting and bloody bowels TECHNIQUE: Imaging protocol: Real time ultrasound of the abdomen with image documentation. Limited exam focused on the right upper quadrant. COMPARISON: CT ABD/PELVIS W IV CONTRAST - WO ORAL CONTRAST 12/28/2023 4:05 PM FINDINGS: Liver: 0.5 x 0.5 x 0.6 cm hyperechoic nodule in the right hepatic lobe. Gallbladder: Normal. No gallstones. There is no gallbladder wall thickening. Biliary ducts: Normal. No stones. No dilation. Pancreas: The pancreas is poorly seen due to overlying shadowing bowel gas. Right kidney: No hydronephrosis or mass. IMPRESSION IMPRESSION: 1. No acute findings. 2. Subcentimeter hyperechoic lesion in the right hepatic lobe. This is nonspecific with differential including both benign and malignant etiologies. No corresponding abnormality seen on same day CT of the abdomen/pelvis. Consider 6 month follow-up ultrasound or nonemergent liver MRI as clinically warranted. THIS DOCUMENT HAS BEEN ELECTRONICALLY SIGNED BY TREY ANDERSEN MD CT ABD/PELVIS W IV CONTRAST - WO ORAL CONTRAST Final Result PROCEDURE INFORMATION: Exam: CT Abdomen And Pelvis With Contrast Exam date and time: 12/28/2023 4:05 PM Age: 48 years old Clinical indication: Other: Abd pain; Additional info: Abdominal pain, vomiting, diarrhea, blood in vomit and bowels TECHNIQUE: Imaging protocol: Computed tomography of the abdomen and pelvis with contrast. Radiation optimization: All CT scans at this facility use at least one of these dose optimization techniques: automated exposure control; mA and/or kV adjustment per patient size (includes targeted exams where dose is matched to clinical indication); or iterative reconstruction. Contrast material: OPTIRAY 320; Contrast volume: 100 ml; Contrast route: INTRAVENOUS (IV); COMPARISON: MR ABDOMEN ROUTINE 11/19/2021 10:30 AM FINDINGS: Liver: Focal fat deposition along the falciform ligament. Gallbladder and bile ducts: Normal. No calcified stones. No ductal dilation. Pancreas: Normal. No ductal dilation. Spleen: Normal. No splenomegaly. Adrenal glands: Normal. No mass. Kidneys and ureters: Normal. No hydronephrosis. Stomach and bowel: Mild gastric wall thickening. Small bowel is unremarkable. Diffuse mild colonic wall thickening and mucosal hyperenhancement. No obstruction. Appendix: No evidence of appendicitis. Intraperitoneal space: Unremarkable. No free air. No significant fluid collection. Vasculature: Unremarkable. No abdominal aortic aneurysm. Lymph nodes: Prominent scattered mesenteric lymph nodes measuring less than 1 cm in short axis, possibly reactive. Urinary bladder: Unremarkable as visualized. Reproductive: Unremarkable as visualized. Bones/joints: Unremarkable. No acute fracture. Soft tissues: Breast implants. Small fat containing umbilical hernia. IMPRESSION IMPRESSION: Mild gastritis and colitis which are favored infectious or inflammatory in etiology. THIS DOCUMENT HAS BEEN ELECTRONICALLY SIGNED BY TREY ANDERSEN MD XR CHEST 1 VIEW Final Result PROCEDURE INFORMATION: Exam: XR Chest Exam date and time: 12/28/2023 2:16 PM Age: 48 years old Clinical indication: Other: PT reports for 8 mo she hasn't been tolerating oral intake well. Reports she is vomiting up blood and having bloody stool/mucous stool. Reports she is fatigued, bloated, dizzy, disoriented. ; Additional info: Abdominal pain TECHNIQUE: Imaging protocol: Radiologic exam of the chest. Views: 1 view. COMPARISON: CT PULMONARY EMBOLUS W CONTRAST 09/09/2021 7:50 PM FINDINGS: Lungs: Unremarkable. No consolidation. Pleural spaces: Unremarkable. No pleural effusion. No pneumothorax. Heart/Mediastinum: Unremarkable. No cardiomegaly. Bones/joints: Unremarkable. IMPRESSION IMPRESSION: No acute findings. THIS DOCUMENT HAS BEEN ELECTRONICALLY SIGNED BY TREY ANDERSEN MD I personally viewed today's EKG, my interpretation is as follows: sinus tachycardia Assessment and Plan IMPRESSION: Principal Problem: Colitis Active Problems: Esophageal reflux Major depressive disorder Hypokalemia Attention deficit hyperactivity disorder, predominantly inattentive type Generalized anxiety disorder Chronic constipation Resolved Problems: * No resolved hospital problems. * ASSESSMENT/PLAN: Will assign to telemetry observation for colitis (inflammatory vs infectious) and hypokalemia. - In addition to potassium replacement given in the ED, will give potassium 10meq IV q1h x3 and potassium 20 meq PO. - Recheck BMP at 2200 - GI consult ordered - Cdiff and GI pathogen panel ordered. - Will need additional GI follow up for liver imaging findings. - Lactate normalized. - Continue Isolyte 100cc/hr - Resume home medications. - Check CBC, BMP, mag and phos in AM. PHARMACOLOGIC VTE PROPHYLAXIS: Enoxaparin CODE STATUS: Full Code EXPECTED DISCHARGE DATE: No information available I reviewed today's results, along with the treatment plan with the patient and family. All questions answered and patient agreeable with the above plan. I spent a total of 65 minutes coordinating, documenting, and providing care for this patient excluding time spent in the performance of separately billed services or time spent by another provider/QHP. Raquel Craig PA-C Associated attestation - Sheila Bennett MD - 12/28/2023 10:49 PM EDT I have reviewed the advanced practitioner's documentation on the date of service referenced in note, and I agree with, and take responsibility for the plan of care. Presented with chronic intermittent abdominal pain that has worsened associated with mucosy diarrhea, blood tinged and blood tinged vomiting for over 8 months Exam notable for abd tenderness Labs notable for WbC 17K, lactate of 2.6, hypokalemia of 2. CT abd noted mild gastritis and colitis Though meets SIRS criteria with tachycardia and leukocytosis, sepsis is possible However, history suggestive more chronic course. Possible IBD Will cover with cipro and flagyl Advised to stop taking NSAIDs that she uses quite often at home IVF GI c/s Change PPI to bid Replete hypokalemia And monitor Counseled on need for adherence to home potassium, meds I spent a total of 35 minutes coordinating, documenting, and providing care for this patient excluding time spent in the performance of separately billed services or time spent by another provider/QHP. documented in this encounter Consult Notes * Bess Queen PA-C - 12/29/2023 7:51 AM EDTAssociated Order(s): GASTROENTEROLOGY CONSULT IP CONSULT - Gastroenterology [facility]-[address] [place] [id number] Name: Gavi Sim Location: [facility] [id number] Date: 12/29/2023 Time: 7:51 AM REQUESTING SERVICE: medicine REASON FOR CONSULT: colitis infectious vs inflammatory HPI: Gavi Sim is a 48 year old female with a hx of HLD, Fibromyalgia, ADHD, Anxiety/Depressionand others, admitted with an approximate 8 month hx of GI symptoms, including crampy, diffuse abdominal pain, bloating, intermittent post prandial n/v (states some days she vomits after everything she eats within about 30 min of eating and some days she does not vomit at all), and bloody mucous in the stool with an alternating bowel pattern and the feeling of incomplete emptying. She does use Linzess at home intermittently when she is constipated. She also complains of significant heartburn/reflux, with breakthrough despite once daily Nexium qamand qhs famotidine. She had been taking 600mg ibuprofen about twice weekly for headaches. Patient did tolerate her breakfast tray today. States she ate the full tray. (Scrambled eggs/potatoes, etc.) On presentation, labs showed severe hypokalemia, with K 2.3, lactate 2.6, WBC 17.17. Cdiff was negative. Culture pending. Repeat labs this morning show K 3.1 and WBC 7.55. Additional labs as below. CTAP - IMPRESSION: Mild gastritis and colitis which are favored infectious or inflammatory in etiology. RUQ ultrasound - IMPRESSION: 1. No acute findings. 2. Subcentimeter hyperechoic lesion in the right hepatic lobe. This is nonspecific with differential including both benign and malignant etiologies. No corresponding abnormality seen on same day CT of the abdomen/pelvis. Consider 6 month follow-up ultrasound or nonemergent liver MRI as clinically warranted. Colonoscopy 03/02/23 - Impression: - The examined [...] performed by Ata Valero MD at ENDOSCOPY [facility] COLPSCPY CERVIX W/LOOP ELECT 07/05/1999 CRYOCAUTERY OF CERVIX 08/04/2000 CYSTO/URETERO W/LITHOTRIPSY Left 07/19/2021 CYSTOURETHROSCOPY URETEROSCOPY WITH LITHOTRIPSY AND STENT INSERTION performed by Calvin Woods MD at OR [facility] CYSTOSCOPY/DILATE BLADDER DIALATED URETHRA EGD, FLEXIBLE, DIAGNOSTIC N/A 11/10/2016 normal/ESOPHAGOGASTRODUODENOSCOPY (EGD), FLEXIBLE, TRANSORAL, DIAGNOSTIC performed by Eduardo Rees MD at OR [facility] ENLARGEMENT OF BREAST W/O IMPLANT Bilateral 2007 saline behind the muscle REMOVAL OF TONSILS, UNDER AGE 13 1984 AGE NOT SPECIFIED TOOTH ROOT REMOVAL 1998 WISDOM Social History: Social History Tobacco Use Smoking status: Never Smokeless tobacco: Never Tobacco comments: DENIES Vaping Use Vaping Use: Never used Substance Use Topics Alcohol use: No Comment: rare Drug use: No Comment: DENIES Family History: Family History Problem Relation Age of Onset Diabetes Mother diet controlled Cancer Father Other (HEART ATTACH) Other Hypertension Other Diabetes Other Other (ADDICTION) Other ALCOHOL Other (Other) Other unaware of any family hx of skin related ca or disease Allergies: Erythromycin ROS: Constitutional: (-) fever, chills, sweats Eyes: (-) negative, no scleral icterus, pain, blurred vision, or redness ENT: (-) negative: no acute hearing loss, sinus, ear or throat problems Cardiovascular: (+) chest pain intermittent - she feels may be s/t anxiety Pulmonary: (+) dyspnea intermittent - she feels may be s/t anxiety Abdominal/GI: as per HPI, otherwise negative Musculoskeletal: (-) negative: no joint swelling or tenderness Endocrine: (-) heat intolerance and (-) cold intolerance Hematology/oncology: (-) negative: no night sweats, masses, or swollen nodes Skin: (-) negative: no rash or jaundice Neurology: (-) negative: no focal neurologic defect or confusion Female : (+) reports she only urinates every other day at home. Denies dysuria. PHYSICAL EXAMINATION: Most Recent Vital Signs: BP: 95 mmHg/63 mmHg (12/29/23745) Pulse: 100 (12/29/23745) Temp: 37.22 C (12/29/23728) Temp Summary: Temp Min: 36.7 C (98.1 F) Max: 37.3 C (99.1 F) SpO2: 96 % (12/29/23728) O2 flow rate: Supplemental O2 Delivery: Room Air, None (12/29/23728) Vital Signs Last 24 Hours: Systolic BP: Most Recent Systolic BP Av.7 mmHg Min: 79 mmHg Max: 123 mmHg Temperature: Most Recent Temperature Av C Min: 36.72 C Max: 37.28 C Pulse: Pulse Av.9 Min: 82 Max: 114 Respirations: Resp Av.1 Min: 18 Max: 20 SpO2: SpO2 Av.6 % Min: 96 % Max: 100 % Constitutional: no acute distress HEENT: normal: normocephalic, atraumatic Eyes: no scleral icterus, redness, or injection Neck: supple, normal range of motion CV: (+) tachycardic Chest: normal respiratory effort, lungs clear to auscultation with equal chest exertion Abdomen: soft, normal bowel sounds, nontender , nondistended Musculoskeletal: (-) no joint effusions or tenderness Extremities: no edema Skin: warm and dry, no rashes Neuro: alert Psych: normal mood and affect, nonsuicidal LABS: Labs reviewed. Recent Results (from the past 48 hour(s)) COMPREHENSIVE METABOLIC PANEL Collection Time: 12/28/23 2:52 PM Result Value Ref Range BUN 16 6 - 20 mg/dL Creatinine 0.8 0.5 - 1.0 mg/dL Estimated Glomerular Filtration Rate 86 >=60 mL/min Sodium 136 135 - 146 mmol/L Potassium 2.3 (LL) 3.5 - 5.1 mmol/L Chloride 96 (L) 98 - 107 mmol/L CO2 26 22 - 32 mmol/L Anion Gap 14 7 - 15 mmol/L Glucose 119 70 - 120 mg/dL Albumin 4.3 3.8 - 5.0 g/dL AST 25 10 - 35 U/L Alkaline Phosphatase 105 35 - 130 U/L Bilirubin, Total 0.4 <=1.2 mg/dL Calcium 9.5 8.4 - 10.2 mg/dL Protein 7.2 6.0 - 8.3 g/dL ALT 14 10 - 35 U/L LACTATE Collection Time: 12/28/23 2:52 PM Result Value Ref Range Lactate 2.6 (H) 0.4 - 2.0 mmol/L LIPASE Collection Time: 12/28/23 2:52 PM Result Value Ref Range Lipase 31 13 - 60 U/L TROPONIN T, HIGH SENSITIVITY Collection Time: 12/28/23 2:52 PM Result Value Ref Range Troponin T, High Sensitivity 8 <=14 ng/L CBC Collection Time: 12/28/23 2:52 PM Result Value Ref Range WBC 17.17 (H) 4.00 - 10.80 K/uL RBC 4.74 3.85 - 5.15 M/uL HGB 14.7 12.0 - 15.3 g/dL HCT 40.8 36.0 - 45.2 % MCV 86.1 81.5 - 97.5 fL MCH 31.0 27.0 - 34.0 pg MCHC 36.0 32.0 - 36.0 g/dL RDW 13.4 11.5 - 15.5 % PLT 462 (H) 140 - 400 K/uL MPV 8.8 6.6 - 11.1 fL nRBCs 0 <=0 /100 WBCs DIFFERENTIAL, AUTOMATED Collection Time: 12/28/23 2:52 PM Result Value Ref Range WBC 17.17 (H) 4.00 - 10.80 K/uL Neutrophils % 78.2 (H) 40.0 - 75.0 % Lymphocytes % 13.6 (L) 18.0 - 42.0 % Monocytes % 6.6 1.0 - 11.0 % Eosinophils % 0.8 0.0 - 6.0 % Basophils % 0.5 0.0 - 2.0 % Immature Granulocytes % 0.3 0.0 - 2.0 % Absolute Neutrophils 13.43 (H) 1.80 - 7.70 K/uL Absolute Lymphocytes 2.34 1.00 - 4.80 K/ul Absolute Monocytes 1.13 (H) 0.00 - 1.10 K/uL Absolute Eosinophils 0.13 0.00 - 0.70 K/uL Absolute Basophils 0.08 0.00 - 0.20 K/uL Absolute Immature Granulocytes 0.06 0.00 - 0.20 K/uL MAGNESIUM Collection Time: 12/28/23 2:52 PM Result Value Ref Range Magnesium 2.2 1.5 - 2.6 mg/dL PHOSPHORUS Collection Time: 12/28/23 2:52 PM Result Value Ref Range Phosphorus 3.0 2.5 - 4.8 mg/dL URINALYSIS, REFLEX TO MICROSCOPIC Collection Time: 12/28/23 4:58 PM Result Value Ref Range Color, Urine Yellow Light Yellow, Yellow, Dark Yellow Clarity, Urine Clear Clear Glucose, Urine Negative Negative mg/dL Bilirubin, Urine Negative Negative Ketone, Urine Negative Negative mg/dL Specific Hammond, Urine 1.049 (H) 1.003 - 1.030 Blood, Urine Negative Negative pH, Urine 5.5 5.0 - 7.5 Units Protein, Urine Negative Negative mg/dL Urobilinogen, Urine 0.2 0.2, 1.0 mg/dL Nitrite, Urine Negative Negative Esterase, Urine Trace (A) Negative MICROSCOPIC EXAM, URINE Collection Time: 12/28/23 4:58 PM Result Value Ref Range RBC, Urine 0-2 0 - 2 /HPF WBC, Urine 3-5 (A) 0 - 2 /HPF Bacteria, Urine 26-50 (A) 0 - 25 /HPF Squamous Epithelial Cells, Urine Many (A) None /HPF SARS-COV-2 (COVID-19), NAAT Collection Time: 12/28/23 5:31 PM Result Value Ref Range SARS-CoV-2 (COVID-19) Result Negative Negative LACTATE Collection Time: 12/28/23 6:55 PM Result Value Ref Range Lactate 1.7 0.4 - 2.0 mmol/L BASIC METABOLIC PANEL Collection Time: 12/28/23 9:53 PM Result Value Ref Range BUN 13 6 - 20 mg/dL Creatinine 0.9 0.5 - 1.0 mg/dL Estimated Glomerular Filtration Rate 76 >=60 mL/min Sodium 143 135 - 146 mmol/L Potassium 2.9 (L) 3.5 - 5.1 mmol/L Chloride 107 98 - 107 mmol/L CO2 29 22 - 32 mmol/L Anion Gap 7 7 - 15 mmol/L Glucose 70 70 - 120 mg/dL Calcium 8.4 8.4 - 10.2 mg/dL LD Collection Time: 12/28/23 9:53 PM Result Value Ref Range LD 201 <=250 U/L CLOSTRIDIUM DIFFICILE, PCR Collection Time: 12/29/23 1:12 AM Result Value Ref Range Stool Consistency Liquid Clostridium difficile Result Negative Negative. No C. difficile toxin B gene DNA detected by PCR (Amplified Probe). BASIC METABOLIC PANEL Collection Time: 12/29/23 5:28 AM Result Value Ref Range BUN 12 6 - 20 mg/dL Creatinine 0.9 0.5 - 1.0 mg/dL Estimated Glomerular Filtration Rate 80 >=60 mL/min Sodium 141 135 - 146 mmol/L Potassium 3.1 (L) 3.5 - 5.1 mmol/L Chloride 107 98 - 107 mmol/L CO2 25 22 - 32 mmol/L Anion Gap 9 7 - 15 mmol/L Glucose 108 70 - 120 mg/dL Calcium 8.0 (L) 8.4 - 10.2 mg/dL CBC Collection Time: 12/29/23 5:28 AM Result Value Ref Range WBC 7.55 4.00 - 10.80 K/uL RBC 3.47 3.85 - 5.15 M/uL HGB 10.6 (L) 12.0 - 15.3 g/dL HCT 30.7 (L) 36.0 - 45.2 % MCV 88.5 81.5 - 97.5 fL MCH 30.5 27.0 - 34.0 pg MCHC 34.5 32.0 - 36.0 g/dL RDW 13.9 11.5 - 15.5 % PLT 307 140 - 400 K/uL MPV 8.5 6.6 - 11.1 fL nRBCs 0 <=0 /100 WBCs MAGNESIUM Collection Time: 12/29/23 5:28 AM Result Value Ref Range Magnesium 2.1 1.5 - 2.6 mg/dL PHOSPHORUS Collection Time: 12/29/23 5:28 AM Result Value Ref Range Phosphorus 3.8 2.5 - 4.8 mg/dL RETICULOCYTE PANEL Collection Time: 12/29/23 5:28 AM Result Value Ref Range Reticulocyte Percent 1.78 0.80 - 1.90 % Absolute Reticulocyte 62.3 31.3 - 100.1 K/uL Immature Reticuloctye Fraction 15.0 2.5 - 20.6 % Reticulocyte Hemoglobin 32.3 29.7 - 37.4 pg IMPRESSION: Gavi Sim is a(n) 48 year old female admitted with chronic intermittent pp n/v, abdominal pain and alternating bowel pattern. Imaging suggestive of colitis and gastritis. RECOMMENDATIONS/PLAN: Cdiff negative. Awaiting stool culture. Would continue PPI. Monitor and correct electrolytes. Recommend OP EGD and colonoscopy. Consider gastric emptying scan as well. Consider OP liver MRI for further evaluation of the right hepatic lobe lesion found on ultrasound. I will discuss the case with my attending, Dr Valero. Associated attestation - Ata Valero MD - 12/29/2023 1:07 PM EDT I performed a history and physical examination of the patient, including specifically on physical exam - soft abomen. I have discussed the patient's management with ROLAN Mann.. Please refer to the physician family readiness support assistant's note for the documented findings and plan of care. - Chronic recurrent alterations of bowel habits and n/v - Symptoms seemed resolved and eating well - Follow cultures - op E/C - Consider AM cortisol, TSH/T4 if none recent, Gastric emptying study - No signs of bleeding despite decreased Hb which may be lab errro - Sitting at bedside eating a salad - Gastroparetic diet - Call with questions documented in this encounter Nursing Notes * Breonna Lake LPN - 12/29/2023 7:56 AM EDT 0745 Patient complaining of chest pain, dizziness and headache. Vitals obtained BP 95/63. Charge nurse made provider aware. EKG released. Patient given am medications. Patient resting in bed at this time requesting drink and speaking on phone.Care ongoing. 0816 EKG obtained. Patient resting in bed at this time. Care ongoing. * Milagros Keller RN - 12/28/2023 7:49 PM EDT Dual Licensed Skin Assessment completed by Milagros Keller Rn and Fran Martinez LPN. The patient is/has a N/A Skin Breakdown (includes non blanchable erythema): No * Cathy Rose RN - 12/28/2023 6:40 PM EDT [facility] [address] [address] Name: Gavi Sim Location: [facility] [id number] Date: 12/28/2023 Time: 6:40 PM I completed the Admission Navigator. The patient was in the hospital. I was not in a hospital or clinic location. After connecting through televideo, the patient was identified by name and date of and / or wristband checked. Patient (or authorized legal field representative/health education) was then informed that this was a Virtual Nurse visit and was being conducted confidentially over secure lines. My office door was closed. No one else was in the room with me. Patient acknowledged consent and understanding of privacy and security of the Virtual Nurse visit. I presented the opportunity for the patient or authorized legal field representative/health education to ask any questions regarding the visit today. The patient or authorized legal field representative/health education agreed to participate. * Fran Martinez LPN - 12/28/2023 6:31 PM EDT Pt arrived to floor at approx 1818 via wheelchair, ambulated from wheelchair to bed, and acclimatedto room & call manzanares system. Personal hygiene supplies given, telel monitor applied, and non skid socks donned. Pt aware of need for stool sample d/t c diff r/o. Pt was left sitting upright in bed with call manzanares in reach and virtual RN was reviewing admission questions. documented in this encounter ED Notes * Peterson Sweeney MD - 12/28/2023 3:02 PM EDT HISTORY OF PRESENT ILLNESS Gavi Sim is a 48 year old female who presents to the ED for evaluation of Abdominal Pain. The patient was seen at 12/28/23 1453. Patient reports that she has been ill for a number of months. She has been having problems with intermittent vomiting for the last 8 months. She says that occasionally there is blood with it. She will sometimes vomit stuff that she had eaten 24 hours before. She has pain in the epigastrium in the right upper quadrant. She has intermittently lost weight. She has been having bowel movements with a lot of mucus and blood also ongoing for months No history of abdominal surgeries. Complains of abdominal cramps She had a colonoscopy nearly a year ago and was told that she has some hemorrhoids and diverticulosis Abdominal Pain Review of Systems Gastrointestinal: Positive for abdominal pain. The patient's allergies, past history, and medications were reviewed. PHYSICAL EXAM Initial Vitals (see all): BP 123/81 | Pulse 107 | Resp 20 | Temp 98.6 | O2 100 %, Room Air, None | Weight 58.51 kg | Height 162.6 cm | BMI 22.14 kg/m2 Initial Pain Assessment (see all): 5 (moderate pain)/10, location: abd ([facility] Adult Scale 0-10) General: Alert. appropriate for age. no acute distress. nontoxic. Skin: Warm, dry. Head: Atraumatic. Neck: trachea midline. No distended neck veins supple Eye: Normal conjunctiva. PERRL, EOMI, Ears, nose, mouth and throat: airway patent. No inflammation Cardiovascular: Normal peripheral perfusion. Tachycardia without murmurs or extra sounds. No distended neck veins. . Respiratory: no respiratory distress. The lungs are clear to auscultation without rales wheezes or rhonchi. Breath sounds equal and present bilaterally. Gastrointestinal: Non distended. Abdomen is soft and tenderness in the epigastrium and right upper quadrant. No guarding. No rebound. No organomegaly. Musculoskeletal: No deformity. Neurological: No focal neurological deficit observed. alert. Psychiatric: Cooperative. Differential diagnosis Gastroenteritis, inflammatory bowel disease, internal abscess PROCEDURES AND TREATMENTS ED Orders | ED Results MEDICAL DECISION MAKING Nursing notes and vital signs were reviewed. ED Course as of 12/28/23 172 Edie Dec 28, 2023 1501 EKG reviewed by ER physician. Sinus tachycardia 101 beats per minute. Possible left atrial enlargement. Nonspecific ST-T abnormality. Most recent EKG from 11/10/2021 looks generally similar although the ST-T abnormalities in leads V4 V5 and V6 are somewhat more prominent today [] 1657 US Abdomen Limited 1. No acute findings. 2. Subcentimeter hyperechoic lesion in the right hepatic lobe. This is nonspecific with differential including both benign and malignant etiologies. No corresponding abnormality seen on same day CT of the abdomen/pelvis. Consider 6 month follow-up ultrasound or nonemergent liver MRI as clinically warranted. [] 1658 CT Abd/Pelvis with IV contrast - without oral contrast Mild gastritis and colitis which are favored infectious or inflammatory in etiology. [] 1726 CT Abd/Pelvis with IV contrast - without oral contrast [] [address] Bennett who will kindly admit to telemetry observation [] ED Course User Index [] Peterson Sweeney MD Amount and/or Complexity of Data Reviewed Labs: ordered. Radiology: ordered. Decision-making details documented in ED Course. Risk Prescription drug management. Clinical Impressions Tachycardia Hypokalemia Gastritis with hemorrhage, unspecified chronicity, unspecified gastritis type Colitis, acute Disposition Admitted. I discussed the management of this patient with the admitting provider and I made a decision to admit the patient. Admission Order Ordered Status . 12/28/231728 Assign to Observation ONCE Ordered Peterson Sweeney * Ingrid Nickerson PA-C - 12/28/2023 1:53 PM EDT ED TRIAGE NOTE HISTORY OF PRESENT ILLNESS Gavi Sim is a 48 year old female who presents to the ED with Abdominal Pain. Informant: patient C/o abdominal pain - intermittent x several months Decreased PO intake. Bloody, mucous stools PHYSICAL EXAM Initial Vitals (see all): BP 123/81 | Pulse 107 | Resp 20 | Temp 98.6 | O2 100 %, Room Air, None | Weight 58.51 kg | Height 162.6 cm | BMI 22.14 kg/m2 Initial Pain Assessment (see all): 5 (moderate pain)/10, location: abd ([facility] Adult Scale 0-10) LUNGS: chest symmetric with normal AP diameter, no chest deformities noted, no chest wall tenderness, lungs clear to auscultation. HEART: regular rate , no murmurs, no gallops, and PMI non-displaced. ABDOMEN: abdomen soft, non-tender, no masses, no hepatosplenomegaly, no rebound or guarding. MEDICAL DECISION MAKING Are the vital signs unstable? No Degree of pain: moderate Is the patient's mental status altered? No Does the patient appear acutely ill or toxic? No Is there evidence for poor perfusion? No Is the patient and near term? No Was pain medication given? no I evaluated the patient in triage in order to provide a brief medical screening exam and initiationof appropriate diagnostic testing. Instructions were given to notify nursing staff if symptoms should worsen or if any other concerns arise while waiting for further evaluation. Ingrid Nickerson PA-C * Raisa Veronica RN - 12/28/2023 1:51 PM EDT Pt reports for 8 mo she hasn't been tolerating oral intake well. Reports she is vomiting up blood and having bloody stool/mucous stool. Reports she is fatigued, bloated, dizzy, disoriented. "I feel like I can't completely empty my bowel." On and off abd pains. documented in this encounter Miscellaneous Notes * Communication - Patricia Cyr RN - 12/31/2023 10:25 AM EDT Appointment: 01/04/2024 at 10:00 AM Uvaldo Dutton MD [facility], [place] [phone] [facility] will be calling you to set up a follow up appointment with Gastroenterology. If you do not receive a phone call within 3 days, please call the office. Gastroenterology [phone] [place] * Pt Handout (on AVS) - Patricia Cyr RN - 12/31/2023 10:24 AM EDT Images from the original note were not included. [id number] Potassium Chloride Extended Release Oral Tablet Brands: K-Tab, Klor-Con Uses This medicine is used for the following purposes: low potassium levels potassium replacement Instructions Swallow the medicine without crushing or chewing it. Take the medicine with a meal and some liquid. Sit or stand upright for 10 minutes after taking the medicine. Do not lie down. This medicine will work best if you take it at about the same time every day. Keep the medicine at room temperature. Avoid heat and direct light. Talk to your doctor before eating foods with large amounts of potassium. Potassium is often found in salt substitutes. Your doctor may want you to reduce the amount of these foods. It is important that you keep taking each dose of this medicine on time even if you are feeling well. If you forget to take a dose on time, take it as soon as you remember. If it is almost time for thenext dose, do not take the missed dose. Return to your normal schedule. Do not take 2 doses at one time. Tell your doctor and pharmacist about all your medicines. Include prescription and kxbx-pax-phzneonymvgtdvzp, vitamins, and herbal medicines. It is very important that you follow your doctor's instructions for all blood tests. Cautions Tell your doctor and pharmacist if you ever had an allergic reaction to a medicine. Do not use the medication any more than instructed. Tell the doctor or pharmacist if you are , planning to be , or . Do not start or stop any other medicines without first speaking to your doctor or pharmacist. Do not share this medicine with anyone who has not been prescribed this medicine. Side Effects The following is a list of some common side effects from this medicine. Please speak with your doctor about what you should do if you experience these or other side effects. diarrhea nausea and vomiting stomach upset or abdominal pain If you have any of the following side effects, you may be getting too much medicine. Please contactyour doctor to let them know about these side effects. fast or irregular heart beats A few people may have an allergic reaction to this medicine. Symptoms can include difficulty breathing, skin rash, itching, swelling, or severe dizziness. If you notice any of these symptoms, seek medical help quickly. Extra Please speak with your doctor, nurse, or pharmacist if you have any questions about this medicine. [email or web address] IMPORTANT NOTE: This document tells you briefly how to take your medicine, but it does not tell youall there is to know about it. Your doctor or pharmacist may give you other documents about your medicine. Please talk to them if you have any questions. Always follow their advice. There is a more complete description of this medicine available in [place]. Scan this code on your smartphone or tablet or use the web address below. You can also ask your pharmacist for a printout. If you have any questions, please ask your pharmacist. The display and use of this drug information is subject to Terms of Use. Copyright(c) 2023 [employer] [id number] [employer]. All rights reserved. This information is not intended as a substitute for professional medical care. Always follow your healthcare professional's instructions. * Pt Handout (on AVS) - Patricia Cyr RN - 12/31/2023 10:23 AM EDT Images from the original note were not included. [id number] Ondansetron Disintegrating Oral Tablet Uses For nausea or vomiting. Instructions Let the medicine dissolve on your tongue and then swallow. Keep the medicine at room temperature. Avoid heat and direct light. Tell your doctor if you have severe or persistent sweating, diarrhea or vomiting. These can increase your risk of a serious side effect. If you are using this medicine regularly, it is important to take each dose of medicine on time. Keep taking the medicine even if you feel well. If you forget to take a [...] about all medicines taken. Include prescription and lypj-aiu-lozxgfb medicines, vitamins, and herbal medicines. Speak with [...] know how this medicine will affect you. Please check with your doctor before drinking alcohol while on this medicine. Call the doctor if there are any signs of confusion or unusual changes in behavior. It is unknown if this medicine passes into breast milk. Ask your doctor before . During , this medicine should be used only when clearly needed. Talk to your doctor about the risks and benefits. Do not take Kemi's wort while on this medicine. Do not share this medicine with anyone who has not been prescribed this medicine. Side Effects The following is a list of some common side effects from this medicine. Please speak with your doctor about what you should do if you experience these or other side effects. constipation dizziness or drowsiness lack of energy and tiredness headaches lightheadedness Call your doctor or get medical help right away if you notice any of these more serious side effects: agitated feeling or trouble sleeping loss of balance chest pain diarrhea fainting hallucinations (unusual thoughts, seeing or hearing things that are not real) fast, irregular, or slow heartbeat muscle aches, spasms or abnormal movements muscle trembling restlessness stomach pain blurring or changes of vision severe or persistent vomiting A few people may have an allergic reaction to this medicine. Symptoms can include difficulty breathing, skin rash, itching, swelling, or severe dizziness. If you notice any of these symptoms, seek medical help quickly. Extra Please speak with your doctor, nurse, or pharmacist if you have any questions about this medicine. [email or web address] IMPORTANT NOTE: This document tells you briefly how to take your medicine, but it does not tell youall there is to know about it. Your doctor or pharmacist may give you other documents about your medicine. Please talk to them if you have any questions. Always follow their advice. There is a more complete description of this medicine available in [place]. Scan this code on your smartphone or tablet or use the web address below. You can also ask your pharmacist for a printout. If you have any questions, please ask your pharmacist. The display and use of this drug information is subject to Terms of Use. Copyright(c) 2023 [employer]. All rights reserved. This information is not intended as a substitute for professional medical care. Always follow your healthcare professional's instructions. * Pt Handout (on AVS) - Patricia Cyr RN - 12/31/2023 10:23 AM EDT Images from the original note were not included. [id number] Calcium Carbonate Chewable Tablet Brands: Carol-Mints, Joselito Gest, Healthy Mama, Nutralox, Pepto-Bismol Children's, Tums Uses This medicine is used for the following purposes: bone strength indigestion low calcium levels prevent low calcium levels high phosphate levels Instructions Chew the pill and swallow. Take the medicine after eating a meal. Store at room temperature away from heat, light, and moisture. Do not keep in the bathroom. This medicine can reduce the absorption of other medicines. Talk to your doctor or pharmacist aboutthe best times to use this product. Drug interactions can change how medicines work or increase risk for side effects. Tell your healthcare providers about all medicines taken. Include prescription and mnbo-hna-xtshfca medicines, vitamins, and herbal medicines. Speak with your doctor or pharmacist before starting or stopping any medicine. Speak with your doctor or pharmacist before starting any other vitamins. Cautions Tell your doctor and pharmacist if you ever had an allergic reaction to a medicine. Do not use the medication any more than instructed. Contact your doctor if you notice a change in the amount or darkening of your urine. Tell the doctor or pharmacist if you are , planning to be , or . Side Effects The following is a list of some common side effects from this medicine. Please speak with your doctor about what you should do if you experience these or other side effects. constipation stomach upset or abdominal pain If you have any of the following side effects, you may be getting too much medicine. Please contactyour doctor to let them know about these side effects. decreased appetite headaches mood changes nausea and vomiting unusual or unexplained tiredness or weakness weakness Call your doctor or get medical help right away if you notice any of these more serious side effects: bone pain muscle pain or weakness increased urinary frequency A few people may have an allergic reaction to this medicine. Symptoms can include difficulty breathing, skin rash, itching, swelling, or severe dizziness. If you notice any of these symptoms, seek medical help quickly. Extra Please speak with your doctor, nurse, or pharmacist if you have any questions about this medicine. [email or web address] IMPORTANT NOTE: This document tells you briefly how to take your medicine, but it does not tell youall there is to know about it. Your doctor or pharmacist may give you other documents about your medicine. Please talk to them if you have any questions. Always follow their advice. There is a more complete description of this medicine available in [place]. Scan this code on your smartphone or tablet or use the web address below. You can also ask your pharmacist for a printout. If you have any questions, please ask your pharmacist. The display and use of this drug information is subject to Terms of Use. Copyright(c) 2023 [employer] [id number] [employer]. All rights reserved. This information is not intended as a substitute for professional medical care. Always follow your healthcare professional's instructions. * Pt Handout (on AVS) - Patricia Cyr RN - 12/31/2023 10:23 AM EDT 83634 Discharge Instructions for Hypocalcemia You have been diagnosed with hypocalcemia (not enough calcium in your blood). Calcium is a mineral.It helps develop bones and teeth, controls heart rhythm, and allows muscles to contract. Causes of hypocalcemia include lack of calcium or vitamin D in your diet, digestive system problems, gland problems, kidney or pancreas disease, and low magnesium levels. Each of these possible causes comes with its own treatments and other things to look out for. Home care Eat more foods high in calcium. Increase your intake (in moderation) of dairy products such as milk, cheese, cottage cheese, yogurt, and ice cream. Fortified soy milk and orange juice, spinach, kale, sardines, salmon, and tofu are also good sources of calcium. Read food labels. Buy dairy products, juices, and breads that contain added calcium. Take a calcium supplement as directed by your healthcare provider. Take a vitamin D supplement as directed by your healthcare provider. Most multivitamin tablets contain vitamin D. Don't have salty foods. Salt makes you lose calcium. Tell your healthcare provider about all prescription and hoat-znn-yvqfjxk medicines you are taking. This includes herbal preparations and other dietary supplements. Some common medicines can causeyour body to lose calcium. Go back to your normal activities as directed by your healthcare provider. Follow-up Make a follow-up appointment, or as advised by your healthcare provider. Depending on the cause of your hypocalcemia, you may need frequent blood tests. They will help to be sure that the level of calcium in your blood remains in the normal range. When to call your healthcare provider Call your healthcare provider right away if you have any of the following: Extreme fatigue Depression Hallucinations Muscle cramps, spasms, or twitching Numbness and tingling in the arms, legs, hands, or feet Seizures Irregular heartbeat Last Reviewed Date: 08/04/202219997532-6670 [employer]. All rights reserved. This information is not intended as a substitute for professional medical care. Always follow your healthcare professional's instructions. * Pt Handout (on AVS) - Patricia Cyr RN - 12/31/2023 10:23 AM EDT [id number] Hypocalcemia (Adult) Hypocalcemia is when there is not enough calcium in the body. Calcium is a mineral. It helps the heart and other muscles work well. It?s also needed to grow and maintain strong bones and teeth. Hypocalcemia may be caused by: Lack of calcium or vitamin D in your diet Digestive problems Gland problems Kidney disease Pancreas disease Low magnesium levels Too much phosphate in your blood Certain medicines Hypocalcemia can cause the muscles of the face, hands, and feet to twitch without your control (spasm). It can also cause numbness or tingling around your mouth or in your hands and feet. Other problems may include depression and memory loss. A blood sample will be taken to check your calcium level. The test also helps figure out if hypocalcemia may be caused by a problem with your kidneys or with the gland that controls your calcium level (parathyroid gland). Depending on the cause, you may be given an oral calcium supplement. In severe cases, you may need intravenous (IV) calcium gluconate. You may also have a vitamin D shot or supplement. If low magnesium is the cause, you will have treatment to raise your body?s level of this mineral. Home care Your healthcare provider may have you take calcium and vitamin D supplements. They may prescribe other medicines or minerals. Follow your provider?s instructions for taking these. General care Take any medicines or supplements as directed. Make diet changes as instructed. You may be asked to eat more dairy products like milk, cheese, and yogurt. Nondairy foods that contain calcium include fortified soy milk, fortified cereals, canned salmon with bones, or dark leafy greens such as allen greens, kale, and spinach. Don't drink sodas. Many of these have phosphates. These can make it harder for your body to absorb calcium. Try to get out in the sun for at least 20 minutes each day. Sun on the skin helps your body makevitamin D. This helps you absorb calcium. Follow-up care Follow up as advised by your healthcare provider, or as advised. When to get medical advice Call your healthcare provider right away if any of these occur: Extreme tiredness (fatigue) Irregular heartbeat Depression Seeing or hearing things that aren?t there (hallucinations) Muscle cramps, spasms, or twitching Numbness and tingling in the arms, legs, hands, or feet Seizures Last Reviewed Date: 02/02/202219997199-7549 [employer]. All rights reserved. This information is not intended as a substitute for professional medical care. Always follow your healthcare professional's instructions. * Pt Handout (on AVS) - Patricia Cyr RN - 12/31/2023 10:23 AM EDT 09367 Discharge Instructions for Hypokalemia You have been [...] your healthcare provider about all prescription and inpp-cqq-bkncwmm medicines you are taking. This includes herbal [...] or twitching Weakness Paralysis Last Reviewed Date: 08/04/202219995715-0464 [employer]. All rights reserved. This information is not intended as a substitute for professional medical care. Always follow your healthcare professional's instructions. * Pt Handout (on AVS) - Patricia Cyr RN - 12/31/2023 10:23 AM EDT [id number] Hypokalemia Hypokalemia means a low level of [...] rate Loss of consciousness Last Reviewed Date: 08/04/202219997431-7408 [employer]. All rights reserved. This information is not intended as a substitute for professional medical care. Always follow your healthcare professional's instructions. * Pt Handout (on AVS) - Magi Gentile RN - 12/31/2023 9:40 AM EDT [id number] Ulcerative Colitis You have been diagnosed with ulcerative colitis. This is a long-term (chronic) condition that causes inflammation and ulcers in the rectum and colon. It's a form of inflammatory bowel disease (IBD). The disease is often diagnosed by a special procedure called a colonoscopy. The symptoms often develop over time. There is no medicine that can cure ulcerative colitis. The goal of treatment is to reduce the symptoms, and cause a remission. Symptoms of ulcerative colitis include: Belly (abdominal) cramps and pain Diarrhea, often bloody Rectal bleeding Rectal pain Fever Decreased appetite and weight loss Low energy Inflammation outside of the colon can occur and can cause pain or swelling in places such as theeyes, skin, and joints Home care No one knows what exactly causes IBD. The goal is to control and relieve the symptoms and prevent complications, so you can lead a full and active life. No medicine can cure the disease. In some cases, surgery to remove the whole colon can be healing. But surgery causes other side effects, so medicines are often preferred. Discuss your options with your healthcare provider. Diet Your diet did not cause your condition, but it can affect it. Unfortunately, there is no one diet that works for everyone, so you have to experiment. Below are some recommendations, but what works for you may be different. Keep a food log to figure out what you are sensitive to. Eat more slowly. Eat smaller amounts at a time, but more often. Remember, you can always eat more, but can't eat less once you've eaten too much. High-fiber foods are complicated. While they may help constipation, they can make bloating, cramping, gas, and diarrhea worse. Eat less sugar. Try cutting out dairy products if you feel you are sensitive to lactose. Try cutting out foods that are high in fat and fatty meats. You can control bloating and passing excess gas. Be careful with "gassy" vegetables and fruits like beans, cabbage, broccoli, and cauliflower. Be careful of carbonated drinks and fruit juices. They can make bloating and diarrhea worse. Caffeine, alcohol, and stimulants may make symptoms worse. Lifestyle Stress doesn't cause IBD. But it's a factor in flare-ups, and how you feel and react to your condition. Look for things that seem to make your symptoms worse, such as stress and emotions. Counseling can help you deal with stress. So can self-help treatments such as exercise, yoga, and meditation. Depression can be a part of this illness and antidepressant medicine may be prescribed. This mayactually help with diarrhea, constipation, and cramping, as well as symptoms of depression. Lack of sleep can make symptoms seem worse. Alcohol use can make symptoms worse. Medicines Your healthcare provider may prescribe medicines. Take them as directed. In most cases, you will need to take the medicines for the rest of your life. For acute flares, additional prescription medicines can be prescribed. Call your provider if you need these. Ask your healthcare provider before taking any medicines for diarrhea. Don't take anti-inflammatory medicines such as ibuprofen or naproxen. Think about taking nutritional supplements. This is especially true if the diarrhea is prolonged, or you aren't eating, or you are losing weight. Follow-up care Follow up with your healthcare provider, or as advised. Tell your provider if you lose more than 5 pounds over 3 to 6 months, and you aren't trying to lose weight. If a stool sample was taken, or cultures were done, you will be told if they are positive, or if your treatment needs to be changed. You can call as directed for results. If X-rays were done, you will be told of any new findings that may affect your care. You may need a test regularly to look into the colon. This is called a colonoscopy. It allows your provider to see inside the area that has been inflamed. The provider can take tissue samples to check its health. It's very important to tell your healthcare provider if you plan to get , or find out you are . You will need to discuss your disease, medicines, and plan as early as possible and preferably before you conceive. Call 911 Call 911 if any of these occur: Large amount of bleeding from your rectum, or in diarrhea Trouble breathing Confusion Very drowsy or trouble waking up Fainting or loss of consciousness Rapid heart rate Chest pain When to seek medical advice Call your healthcare provider right away if any of these occur: Small amount of bleeding from your rectum, or in diarrhea Frequent diarrhea or belly pain that's not controlled by your medicine Fever of 100.4F (38C) or higher , or as directed by your healthcare provider Nausea that does not get better, or repeated vomiting Last Reviewed Date: 02/02/202219993314-5844 [employer]. All rights reserved. This information is not intended as a substitute for professional medical care. Always follow your healthcare professional's instructions. * Care Plan - Landon Allan RN - 12/31/2023 5:04 AM EDT Clinical Goal(s): Pt will be free of nausea during shift (12/30/23 1921) Possible barriers to meeting goal(s)/advancing plan of care: admitting diagnosis Stability of the patient: Moderately stable - low risk of patient condition declining or worsening Summary regarding today's goal(s): Met: patient was free of nausea during shift Recommendations: continue plan of care. * Care Plan - Linnette Tang RN - 12/30/2023 6:43 PM EDT Clinical Goal(s): Pt will report minimal nausea with use of PRNs (12/30/23 0800) Possible barriers to meeting goal(s)/advancing plan of care: adm dx Stability of the patient: Moderately stable - low risk of patient condition declining or worsening Summary regarding today's goal(s): Met: Pt reports minimal nausea with PRNs Recommendations: continue antiemetics * Care Plan - Yuliet Garcia RN - 12/30/2023 5:58 AM EDT Clinical Goal(s): Pt will have adequate rest this shift (12/29/231926) Possible barriers to meeting goal(s)/advancing plan of care: admitting diagnosis and hospital environment Stability of the patient: Moderately stable - low risk of patient condition declining or worsening Summary regarding today's goal(s): Met: Pt rested quietly in bed throughout the night Recommendations: continue with plan of care * Medical Necessity - Eric Sutton RN - 12/29/2023 12:50 PM EDT AdmissionCare Guideline: Systemic / Infectious Condition, Inpatient Based on the indications selected for the patient, the bed status of Inpatient was determined to beMET The following indications were selected as present at the time of evaluation of the patient: - Hemodynamic instability, as indicated by 1 or more of the following: - Vital sign abnormality not readily corrected by appropriate treatment, as indicated by 1 or more of the following: - Tachycardia that persists despite appropriate treatment (eg, volume repletion, treatment of pain,treatment of underlying cause) - Hypotension that persists despite appropriate treatment (eg, volume repletion, treatment of underlying cause) - Electrolyte abnormality is not at acceptable patient baseline (eg, treatment effect). AdmissionCare documentation entered by: Eric Sutton [facility] [employer], 27th edition, Copyright 2022 [facility] [employer] All Rights Reserved. [id number]:00 [employer] for purpose of utilization review and payment; not a diagnostic tool * Care Plan - Landon Allan RN - 12/29/2023 5:37 AM EDT Clinical Goal(s): Pt will remain free of falls this shift (12/28/231925) Possible barriers to meeting goal(s)/advancing plan of care: admitting diagnosis Stability of the patient: Moderately stable - low risk of patient condition declining or worsening Summary regarding today's goal(s): Met: patient was free of falls during shift Recommendations: continue fall precautions * Medical Necessity - Sylwia Osorio RN - 12/28/2023 5:48 PM EDT AdmissionCare Guideline: General Observation, Observation Based [...] Presents to the ED for evaluation of Abdominal Pain. Intermittent vomiting for the last 8 months. Potassium 2.3 Lactate 2.6 Treatment: Morphine IV NSS IV bolus x 2 Zofran IV Potassium oral and IV AdmissionCare documentation entered by: Sylwia Osorio [facility], 27th edition, Copyright 2022 [facility] [employer] All Rights Reserved. 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 Pt states she gets very bloated. Usually she will eat and then throw up the food she ate 24hours later. Pt reports she will throw up the food whole. Pt also reports she has episodes of blood in her vomit and stool Most recently pt is having "pus" in her stool. She states there is a lot of "pus" in her stool and it looks "stringy". Pt also complaining of feeling disoriented and weak. Pt was unable to remember what day it was this AM. documented in this encounter Plan of Treatment Upcoming Encounters Date Type Department Care Team (Late st Contact Info) Description 01/04/2024 10:00 AM EDT Office Visit [address] [place] [address] Uvaldo Dutton MD [address] [place] [address] Scheduled Procedures Name Priority Associated Diagnoses Date/Ti me COLONOSCOPY FLEXIBLE PROXIMA L DIAGNOSTIC Recall History of colonic polyps Scheduled Referrals Name Type Priority Associated Diagnoses Order Schedule ADULT GASTROENTEROLOGY REFERRAL OP Referral Within 3 days (urgent) Colitis Ordered: 12/31/2023 Health Maintenance Due Date Last Done Comments [...] Procedure Name Priority Date/Time Associated Diagnosis Comments TSH WITH FREE T4 IF INDICATED STAT 12/31/2023 7:57 AM EDT BASIC METABOLIC PANEL Routine 12/31/2023 7:57 AM EDT PHOSPHORUS Routine 12/31/2023 7:57 AM EDT CBC Routine 12/31/2023 7:57 AM EDT MAGNESIUM Routine 12/31/2023 7:57 AM EDT BASIC METABOLIC PANEL Routine 12/30/2023 5:21 AM EDT PHOSPHORUS Routine 12/30/2023 5:21 AM EDT CBC Routine 12/30/2023 5:21 AM EDT MAGNESIUM Routine 12/30/2023 5:21 AM EDT PROCALCITONIN Add-on 12/29/2023 5:28 AM EDT RETICULOCYTE PANEL Add-on 12/29/2023 5: 28 AM EDT CRP (INFLAMMATORY MARKER) Add-on 12/29/2023 5:28 AM EDT BASIC METABOLIC PANEL Routine 12/29/2023 5:28 AM EDT PHOSPHORUS Routine 12/29/2023 5:28 AM EDT ERYTHROCYTE SEDIMENTATION RATE (ESR) Add-on 12/29/2023 5:28 AM EDT CBC Routine 12/29/2023 5:28 AM EDT MAGNESIUM Routine 12/29/2023 5:28 AM EDT GASTROINTESTINAL PATHOGEN PANEL, STOOL STAT 12/29/2023 1:19 AM EDT GASTROINTESTINAL PATHOGEN PANEL CULTURE STAT 12/29/2023 1:19 AM EDT GASTROINTESTINAL PATHOGEN PANEL PCR STAT 12/29/2023 1:19 AM EDT CLOSTRIDIUM DIFFICILE, PCR STAT 12/29/2023 1:12 AM EDT BASIC METABOLIC PANEL Routine 12/28/2023 9:53 PM EDT FOLIC ACID Add-on 12/28/2023 9:53 PM EDT IRON SCREEN, INCLUDING TIBC Add-on 12/28/2023 9:53 PM EDT LD Add-on 12/28/2023 9:53 PM EDT HAPTOGLOBIN Add-on 12/28/2023 9:53 PM EDT FERRITIN Add-on 12/28/2023 9:53 PM EDT VITAMIN B12 Add-on 12/28/2023 9:53 PM EDT LACTATE Routine 12/28/2023 6:55 PM EDT SARS-COV-2 (COVID-19), NAAT STAT 12/28/2023 5:31 PM EDT MICROSCOPIC EXAM, URINE STAT 12/28/19 4:58 PM EDT URINALYSIS, REFLEX TO MICROSCOPIC STAT 12/28/2023 4:58 PM EDT US ABDOMEN LIMITED STAT 12/28/2023 4: [address] ABD/PELVIS W IV CONTRAST - WO ORAL CONTRAST STAT 12/28/2023 4:12 PM EDT EXTRA LIGHT BLUE TOP Routine 12/28/2023 2:52 PM EDT DIFFERENTIAL, AUTOMATED STAT 12/28/19 2:52 PM EDT TROPONIN T, HIGH SENSITIVITY STAT 12/28/2023 2:52 PM EDT COMPREHENSIVE METABOLIC PANEL STAT 12/28/2023 2:52 PM EDT CBC STAT 12/28/2023 2:52 PM EDT PHOSPHORUS Add-on 12/28/2023 2:52 PM EDT LIPASE STAT 12/28/2023 2:52 PM EDT LACTATE STAT 12/28/2023 2:52 PM EDT CBC STAT 12/28/2023 2:52 PM EDT MAGNESIUM Add-on 12/28/2023 2:52 PM EDT XR CHEST 1 VIEW STAT 12/28/2023 2:23 PM EDT documented in this encounter Results * TSH WITH FREE T4 IF INDICATED (12/31/2023 7:57 AM EDT) Pathologist [facility] TSH 0.86 0.27 - 4.20 uIU/mL 12/31/2023 8:28 AM EDT LABORATORY GL Blood Venous blood specimen / Unknown Venipuncture / Unknown 12/31/2023 7:57 AM EDT 12/31/2023 8:00 AM EDT Boewn Gonzalez MD LAB BLOOD ORDERABLES Performing Organization Address City/[facility]/ZIP Co de Phone Number LABORATORY [address] [phone] * PHOSPHORUS (12/31/2023 7:57 AM EDT) Phosphorus 2.7 2.5 - 4.8 mg/dL 12/31/2023 8:28 AM EDT LABORATORY [facility] Blood Venous blood specimen / Unknown Venipuncture / Unknown 12/31/2023 7:57 AM EDT 12/31/2023 8:00 AM EDT Raquel Craig PA-C LAB BLOOD ORDER MATHIEU Performing Organization Address [facility] Co de Phone Number LABORATORY [address] [address] * MAGNESIUM (12/31/2023 7:57 AM EDT) Magnesium 1.9 1.5 - 2.6 mg/dL 12/31/2023 8:28 AM EDT LABORATORY [facility] Blood Venous blood specimen / Unknown Venipuncture / Unknown 12/31/2023 7:57 AM EDT 12/31/2023 8:00 AM EDT Raquel Craig PA-C LAB BLOOD ORDER MATHIEU Performing Organization Address City/[facility]/ZIP Co de Phone Number LABORATORY [address] [phone] * (ABNORMAL) CBC (12/31/2023 7:57 AM EDT) WBC 8.65 4.00 - 10.80 K/uL 12/31/2023 8:03 AM EDT LABORATORY GL RBC 3.60 3.85 - 5.15 M/uL 12/31/2023 8:03 AM EDT LABORATORY GL HGB 11.2(L) 12.0 - 15.3 g/dL 12/31/2023 8:03 AM EDT LABORATORY GL HCT 32.6(L) 36.0 - 45.2 % 12/31/2023 8:03 AM EDT LABORATORY [facility] MCV 90.6 81.5 - 97.5 fL 12/31/2023 8:03 AM EDT LABORATORY [facility] MCH 31.1 27.0 - 34.0 pg 12/31/2023 8:03 AM EDT LABORATORY [facility] MCHC 34.4 32.0 - 36.0 g/dL 12/31/2023 8:03 AM EDT LABORATORY [facility] RDW 13.5 11.5 - 15.5 % 12/31/2023 8:03 AM EDT LABORATORY [facility] PLT 339 140 - 400 K/uL 12/31/2023 8:03 AM EDT LABORATORY [facility] MPV 8.4 6.6 - 11.1 fL 12/31/2023 8:03 AM EDT LABORATORY [facility] nRBCs 0 <=0 /100 WBCs 12/31/2023 8:03 AM EDT LABORATORY [facility] Blood Venous blood specimen / Unknown Venipuncture / Unknown 12/31/2023 7:57 AM EDT 12/31/2023 8:00 AM EDT Raquel Craig PA-C LAB BLOOD ORDER MATHIEU LABORATORY [address] [address] * BASIC METABOLIC PANEL (12/31/2023 7:57 AM EDT) BUN 7 6 - 20 mg/dL 12/31/2023 8:28 AM EDT LABORATORY [facility] Creatinine 0.8 0.5 - 1.0 mg/dL 12/31/2023 8:28 AM EDT LABORATORY GL Estimated Glomerular Filtration Rate 89 >=60 mL/min 12/31/2023 8:28 AM EDT LABORATORY GL Comment:eGFR is calculated b ased on the CKD-EPI 2020 equation Sodium 138 135 - 146 mmol/L 12/31/2023 8:28 AM EDT LABORATORY GL Potassium 3.5 3.5 - 5.1 mmol/L 12/31/2023 8:28 AM EDT LABORATORY GL Chloride 103 98 - 107 mmol/L 12/31/2023 8:28 AM EDT LABORATORY [facility] CO2 28 22 - 32 mmol/L 12/31/2023 8:28 AM EDT LABORATORY [facility] Anion Gap 7 7 - 15 mmol/L 12/31/2023 8:28 AM EDT LABORATORY [facility] Glucose 98 70 - 120 mg/dL 12/31/2023 8:28 AM EDT LABORATORY [facility] Calcium 8.7 8.4 - 10.2 mg/dL 12/31/2023 8:28 AM EDT LABORATORY [facility] Blood Venous blood specimen / Unknown Venipuncture / Unknown 12/31/2023 7:57 AM EDT 12/31/2023 8:00 AM EDT Raquel Craig PA-C LAB BLOOD ORDER MATHIEU LABORATORY [address] [phone] * PHOSPHORUS (12/30/2023 5:21 AM EDT) Phosphorus 2.7 2.5 - 4.8 mg/dL 12/30/2023 5:47 AM EDT LABORATORY GL Blood Venous blood specimen / Unknown Venipuncture / Unknown 12/30/2023 5:21 AM EDT 12/30/2023 5:29 AM EDT Raquel Craig PA-C LAB BLOOD ORDER MATHIEU LABORATORY [address] [address] * MAGNESIUM (12/30/2023 5:21 AM EDT) Magnesium 2.1 1.5 - 2.6 mg/dL 12/30/2023 5:47 AM EDT LABORATORY GL Blood Venous blood specimen / Unknown Venipuncture / Unknown 12/30/2023 5:21 AM EDT 12/30/2023 5:29 AM EDT Raquel Craig PA-C LAB BLOOD ORDER MATHIEU LABORATORY [address] [place] [address] * (ABNORMAL) CBC (12/30/2023 5:21 AM EDT) [facility] WBC 8.03 4.00 - 10.80 K/uL 12/30/2023 5:31 AM EDT LABORATORY [facility] RBC 3.53 3.85 - 5.15 M/uL 12/30/2023 5:31 AM EDT LABORATORY GL HGB 10.9(L) 12.0 - 15.3 g/dL 12/30/2023 5:31 AM EDT LABORATORY GL HCT 31.3(L) 36.0 - 45.2 % 12/30/2023 5:31 AM EDT LABORATORY [facility] MCV 88.7 81.5 - 97.5 fL 12/30/2023 5:31 AM EDT LABORATORY [facility] MCH 30.9 27.0 - 34.0 pg 12/30/2023 5:31 AM EDT LABORATORY [facility] MCHC 34.8 32.0 - 36.0 g/dL 12/30/2023 5:31 AM EDT LABORATORY [facility] RDW 13.8 11.5 - 15.5 % 12/30/2023 5:31 AM EDT LABORATORY GL PLT 339 140 - 400 K/uL 12/30/2023 5:31 AM EDT LABORATORY [facility] MPV 8.6 6.6 - 11.1 fL 12/30/2023 5:31 AM EDT LABORATORY GL nRBCs 0 <=0 /100 WBCs 12/30/2023 5:31 AM EDT LABORATORY GL Blood Venous blood specimen / Unknown Venipuncture / Unknown 12/30/2023 5:21 AM EDT 12/30/2023 5:29 AM EDT Raquel Craig PA-C LAB BLOOD ORDER MATHIEU LABORATORY [address] [address] * (ABNORMAL) BASIC METABOLIC PANEL (12/30/2023 5:21 AM EDT) BUN 10 6 - 20 mg/dL 12/30/2023 5:47 AM EDT LABORATORY GL Creatinine 0.7 0.5 - 1.0 mg/dL 12/30/2023 5:47 AM EDT LABORATORY GL Estimated Glomerular Filtration Rate >90 >=60 mL/min 12/30/2023 5:47 AM EDT LABORATORY GL Comment:eGFR is calculated b ased on the CKD-EPI 2020 equation Sodium 143 135 - 146 mmol/L 12/30/2023 5:47 AM EDT LABORATORY [facility] Potassium 3.6 3.5 - 5.1 mmol/L 12/30/2023 5:47 AM EDT LABORATORY [facility] Chloride 108(H) 98 - 107 mmol/L 12/30/2023 5:47 AM EDT LABORATORY [facility] CO2 25 22 - 32 mmol/L 12/30/2023 5:47 AM EDT LABORATORY GL Anion Gap 10 7 - 15 mmol/L 12/30/2023 5:47 AM EDT LABORATORY GL Glucose 101 70 - 120 mg/dL 12/30/2023 5:47 AM EDT LABORATORY GL[facility] Calcium 7.5(L) 8.4 - 10.2 mg/dL 12/30/2023 5:47 AM EDT LABORATORY [facility] Blood Venous blood specimen / Unknown Venipuncture / Unknown 12/30/2023 5:21 AM EDT 12/30/2023 5:29 AM EDT Raquel Craig PA-C LAB BLOOD ORDER MATHIEU LABORATORY [facility] [address] [place] [address] * RETICULOCYTE PANEL (12/29/2023 5:28 AM EDT) Pathologist [facility] Reticulocyte Percent 1.78 0.80 - 1.90 % 12/29/2023 7:43 AM EDT LABORATORY GL Absolute Reticulocyte 62.3 31.3 - 100.1 K/uL 12/29/2023 7:43 AM EDT LABORATORY GL Immature Reticuloctye Fraction 15.0 2.5 - 20.6 % 12/29/2023 7:43 AM EDT LABORATORY [facility] Reticulocyte Hemoglobin 32.3 29.7 - 37.4 pg 12/29/2023 7:43 AM EDT LABORATORY [facility] Blood Venous blood specimen / Unknown Venipuncture / Unknown 12/29/2023 5:28 AM EDT 12/29/2023 5:31 AM EDT Bowen Gonzalez MD LAB BLOOD ORDERABLES Performing Organization Address City/[facility]/ZIP Co de Phone Number LABORATORY [address] [address] * ERYTHROCYTE SEDIMENTATION RATE (ESR) (12/29/2023 5:28 AM EDT) Pathologist [facility] ESR 9 <20 mm/hour 12/29/2023 8:45 PM EDT LABORATORY [facility] Blood Venous blood specimen / Unknown Venipuncture / Unknown 12/29/2023 5:28 AM EDT 12/29/2023 5:31 AM EDT Bowen Gonzalez MD LAB BLOOD ORDERABLES Performing Organization Address City/[facility] Co de Phone Number LABORATORY [facility] [address] [place] [address] * (ABNORMAL) CRP (INFLAMMATORY MARKER) (12/29/2023 5:28 AM EDT) Pathologist [facility] CRP (Inflammatory Marker) 16(H) <=5 mg/L 12/29/2023 9:07 AM EDT LABORATORY [facility] Blood Venous blood specimen / Unknown Venipuncture / Unknown 12/29/2023 5:28 AM EDT 12/29/2023 5:31 AM EDT Bowen Gonzalez MD LAB BLOOD ORDERABLES Performing Organization Address City/[facility] Co de Phone Number LABORATORY [address] [address] * (ABNORMAL) PROCALCITONIN (12/29/2023 5:28 AM EDT) Procalcitonin 0.11(H) <0.10 ng/mL 12/29/2023 8:53 AM EDT LABORATORY [facility] Blood Venous blood specimen / Unknown Venipuncture / Unknown 12/29/2023 5:28 AM EDT 12/29/2023 5:31 AM EDT Narrative LABORATORY [facility] - 12/29/2023 8:53 AM EDT Less than 0.5 ng/mL: Low risk for progression to sepsis. Review patients condition for localized infections. 0.5 to 2.0 ng/mL: Intermediate risk for progresion to sepsis. Review underlying conditions. Recommend repeat PCT after 6 hours has elapsed. Greater than 2.0 ng/mL: high risk for progression to sepsis unless other causes are known. Bowen Gonzalez MD LAB BLOOD ORDERABLES Performing Organization Address City/[facility]/ZIP Co de Phone Number LABORATORY [address] [address] * PHOSPHORUS (12/29/2023 5:28 AM EDT) Phosphorus 3.8 2.5 - 4.8 mg/dL 12/29/2023 5:57 AM EDT LABORATORY [facility] Blood Venous blood specimen / Unknown Venipuncture / Unknown 12/29/2023 5:28 AM EDT 12/29/2023 5:31 AM EDT Raquel Craig PA-C LAB BLOOD ORDER MATHIEU LABORATORY [address] [address] * MAGNESIUM (12/29/2023 5:28 AM EDT) Magnesium 2.1 1.5 - 2.6 mg/dL 12/29/2023 5:57 AM EDT LABORATORY [facility] Blood Venous blood specimen / Unknown Venipuncture / Unknown 12/29/2023 5:28 AM EDT 12/29/2023 5:31 AM EDT Raquel Craig PA-C LAB BLOOD ORDER MATHIEU LABORATORY [address] [address] * (ABNORMAL) CBC (12/29/2023 5:28 AM EDT) Pathologist [facility] WBC 7.55 4.00 - 10.80 K/uL 12/29/2023 5:57 AM EDT LABORATORY [facility] RBC 3.47 3.85 - 5.15 M/uL 12/29/2023 5:57 AM EDT LABORATORY [facility] HGB 10.6(L) 12.0 - 15.3 g/dL 12/29/2023 5:57 AM EDT LABORATORY [facility] HCT 30.7(L) 36.0 - 45.2 % 12/29/2023 5:57 AM EDT LABORATORY [facility] MCV 88.5 81.5 - 97.5 fL 12/29/2023 5:57 AM EDT LABORATORY [facility] MCH 30.5 27.0 - 34.0 pg 12/29/2023 5:57 AM EDT LABORATORY [facility] MCHC 34.5 32.0 - 36.0 g/dL 12/29/2023 5:57 AM EDT LABORATORY [facility] RDW 13.9 11.5 - 15.5 % 12/29/2023 5:57 AM EDT LABORATORY [facility] PLT 307 140 - 400 K/uL 12/29/2023 5:57 AM EDT LABORATORY [facility] MPV 8.5 6.6 - 11.1 fL 12/29/2023 5:57 AM EDT LABORATORY [facility] nRBCs 0 <=0 /100 WBCs 12/29/2023 5:57 AM EDT LABORATORY [facility] Blood Venous blood specimen / Unknown Venipuncture / Unknown 12/29/2023 5:28 AM EDT 12/29/2023 5:31 AM EDT Raquel Craig PA-C LAB BLOOD ORDER MATHIEU LABORATORY [address] [place] [address] * (ABNORMAL) BASIC METABOLIC PANEL (12/29/2023 5:28 AM EDT) BUN 12 6 - 20 mg/dL 12/29/2023 5:57 AM EDT LABORATORY [facility] Creatinine 0.9 0.5 - 1.0 mg/dL 12/29/2023 5:57 AM EDT LABORATORY GL Estimated Glomerular Filtration Rate 80 >=60 mL/min 12/29/2023 5:57 AM EDT LABORATORY GL Comment:eGFR is calculated b ased on the CKD-EPI 2020 equation Sodium 141 135 - 146 mmol/L 12/29/2023 5:57 AM EDT LABORATORY GL Potassium 3.1(L) 3.5 - 5.1 mmol/L 12/29/2023 5:57 AM EDT LABORATORY GL Chloride 107 98 - 107 mmol/L 12/29/2023 5:57 AM EDT LABORATORY [facility] CO2 25 22 - 32 mmol/L 12/29/2023 5:57 AM EDT LABORATORY GL Anion Gap 9 7 - 15 mmol/L 12/29/2023 5:57 AM EDT LABORATORY GL Glucose 108 70 - 120 mg/dL 12/29/2023 5:57 AM EDT LABORATORY GL Calcium 8.0(L) 8.4 - 10.2 mg/dL 12/29/2023 5:57 AM EDT LABORATORY [facility] Blood Venous blood specimen / Unknown Venipuncture / Unknown 12/29/2023 5:28 AM EDT 12/29/2023 5:31 AM EDT Raquel Craig PA-C LAB BLOOD ORDER MATHIEU LABORATORY [facility] [address] [place] [address] * GASTROINTESTINAL PATHOGEN PANEL CULTURE (12/29/2023 1:19 AM EDT) Culture Growth No Aeromonas species or Plesiomonas species isolated. 12/31/2023 11:18 AM EDT LABORATORY [facility] Stool Stool specimen / Unknown Non-blood Collection / Unknown 12/29/2023 1:19 AM EDT 12/29/2023 1:18 AM EDT Peterson Sweeney MD LAB MICRO - GENERAL ORDERABLES LABORATORY [facility] [address] [place] [address] * GASTROINTESTINAL PATHOGEN PANEL PCR (12/29/2023 1:19 AM EDT) Campylobacter group by PCR Negative Negative 12/29/2023 5:18 PM EDT LABORATORY [facility] Salmonella species by PCR Negative Negative 12/29/2023 5:18 PM EDT LABORATORY [facility] Shigella species by PCR Negative Negative 12/29/2023 5:18 PM EDT LABORATORY [facility] Vibrio group by PCR Negative Negative 12/29/2023 5:18 PM EDT LABORATORY C Yersinia enterocolitica by PCR Negative Negative 12/29/2023 5:18 PM EDT LABORATORY [facility] Shiga Toxin 1 Gene by PCR Negative Negative 12/29/2023 5:18 PM EDT LABORATORY C Shiga Toxin 2 Gene by PCR Negative Negative 12/29/2023 5:18 PM EDT LABORATORY C Norovirus by PCR Negative Negative 12/29/19 5:18 PM EDT LABORATORY C Rotavirus by PCR Negative Negative 12/29/19 5:18 PM EDT LABORATORY [facility] Stool Stool specimen / Unknown Non-blood Collection / Unknown 12/29/2023 1:19 AM EDT 12/29/2023 1:18 AM EDT Peterson Sweeney MD LAB MICRO - GENERAL ORDERABLES LABORATORY [facility] [address] [place] [address] * CLOSTRIDIUM DIFFICILE, PCR (12/29/2023 1:12 AM EDT) Stool Consistency Liquid 12/29/2023 2:04 AM EDT [facility] SYSTEM Clostridium difficile Result Negative. No C. difficile toxin B gene DNA detected by PCR (Amplified Probe). Negative 12/29/2023 2:04 AM EDT LABORATORY [facility] Stool Stool specimen / Unknown 12/29/2023 1:12 AM EDT 12/29/2023 1:16 AM EDT Peterson Sweeney MD LAB MICRO - GENERAL ORDERABLES Performing Organization Address City/[facility]/ZIP Co de Phone Number LABORATORY [address] [address] * HAPTOGLOBIN (12/28/2023 9:53 PM EDT) [facility] Haptoglobin 194 30 - 200 mg/dL 12/29/2023 4:47 PM EDT LABORATORY [facility] Blood Venous blood specimen / Unknown Venipuncture / Unknown 12/28/2023 9:53 PM EDT 12/28/2023 9:56 PM EDT Bowen Gonzalez MD LAB BLOOD ORDERABLES Performing Organization Address City/[facility]/ZIP Co de Phone Number LABORATORY [facility] [address] [place] [address] * LD (12/28/2023 9:53 PM EDT) [facility] LD 201 <=250 U/L 12/29/2023 7:57 AM EDT LABORATORY [facility] Comment:Result may be falsel y elevated due to hemolysis. Blood Venous blood specimen / Unknown Venipuncture / Unknown 12/28/2023 9:53 PM EDT 12/28/2023 9:56 PM EDT Bowen Gonzalez MD LAB BLOOD ORDERABLES Performing Organization Address City/[facility]/ZIP Co de Phone Number LABORATORY [address] [address] * FOLIC ACID (12/28/2023 9:53 PM EDT) [facility] Folic Acid 11.5 >4.5 ng/mL 12/29/2023 6:11 PM EDT LABORATORY [facility] Blood Venous blood specimen / Unknown Venipuncture / Unknown 12/28/2023 9:53 PM EDT 12/28/2023 9:56 PM EDT Bowen Gonzalez MD LAB BLOOD ORDERABLES Performing Organization Address [facility]/ZIP Co de Phone Number LABORATORY [facility] [address] [place] [address] * (ABNORMAL) VITAMIN B12 (12/28/2023 9:53 PM EDT) Pathologist [facility] Vitamin B12 203(L) 232 - 1,245 pg/mL 12/29/2023 6:11 PM EDT LABORATORY [facility] Blood Venous blood specimen / Unknown Venipuncture / Unknown 12/28/2023 9:53 PM EDT 12/28/2023 9:56 PM EDT Bowen Gonzalez MD LAB BLOOD ORDERABLES Performing Organization Address [facility] Co de Phone Number LABORATORY [facility] [address] [place] [address] * FERRITIN (12/28/2023 9:53 PM EDT) [facility] Ferritin 45 13 - 150 ng/mL 12/29/2023 6:11 PM EDT LABORATORY [facility] Comment:Postmenopausal women have higher ferritin levels than pre-menopausal women. The above reference interval is based on pre-menopausal women. Blood Venous blood specimen / Unknown Venipuncture / Unknown 12/28/2023 9:53 PM EDT 12/28/2023 9:56 PM EDT Bowen Gonzalez MD LAB BLOOD ORDERABLES Performing Organization Address [facility] Co de Phone Number LABORATORY [place] [address] [place] [address] * (ABNORMAL) IRON SCREEN, INCLUDING TIBC (12/28/2023 9:53 PM EDT) [facility] Iron 28(L) 33 - 151 ug/dL 12/29/2023 4:47 PM EDT LABORATORY [facility] [place] Capacity 279 250 - 425 ug/dL 12/29/2023 4:47 PM EDT LABORATORY [facility] Transferrin Saturation Percent 10(L) 15 - 55 % 12/29/2023 4:47 PM EDT LABORATORY [facility] Blood Venous blood specimen / Unknown Venipuncture / Unknown 12/28/2023 9:53 PM EDT 12/28/2023 9:56 PM EDT Bowen Gonzalez MD LAB BLOOD ORDERABLES LABORATORY [facility] [address] [place] [address] * (ABNORMAL) BASIC METABOLIC PANEL (12/28/2023 9:53 PM EDT) BUN 13 6 - 20 mg/dL 12/28/2023 10:58 PM EDT LABORATORY [facility] Creatinine 0.9 0.5 - 1.0 mg/dL 12/28/2023 10:58 PM EDT LABORATORY [facility] Estimated Glomerular Filtration Rate 76 >=60 mL/min 12/28/2023 10:58 PM EDT LAB[facility]ATORY [facility] Comment:eGFR is calculated b ased on the CKD-EPI 2020 equation Sodium 143 135 - 146 mmol/L 12/28/2023 10:58 PM EDT LABORATORY [facility] Comment:Results rechecked. Potassium 2.9(L) 3.5 - 5.1 mmol/L 12/28/2023 10:58 PM EDT LABORATORY [facility] Chloride 107 98 - 107 mmol/L 12/28/2023 10:58 PM EDT LAB[facility]ATORY [facility] CO2 29 22 - 32 mmol/L 12/28/2023 10:58 PM EDT LAB[facility]ATORY [facility] Anion Gap 7 7 - 15 mmol/L 12/28/2023 10:58 PM EDT LAB[facility]ATORY [facility] Glucose 70 70 - 120 mg/dL 12/28/2023 10:58 PM EDT LAB[facility]ATORY [facility] Calcium 8.4 8.4 - 10.2 mg/dL 12/28/2023 10:58 PM EDT LAB[facility]ATORY [facility] Blood Venous blood specimen / Unknown Venipuncture / Unknown 12/28/2023 9:53 PM EDT 12/28/2023 9:56 PM EDT Raquel Sammi Craig PA-C LAB BLOOD ORDER [facility] LABORATORY [address] [address] * LACTATE (12/28/2023 6:55 PM EDT) Lactate 1.7 0.4 - 2.0 mmol/L 12/28/2023 7:11 PM EDT LABORATORY [facility] Blood Venous blood specimen / Unknown Venipuncture / Unknown 12/28/2023 6:55 PM EDT 12/28/2023 6:58 PM EDT Raquel Sammi Craig PA-C LAB BLOOD ORDER MATHIEU Performing Organization Address [facility]/ZIP Co de Phone Number LABORATORY [address] [address] * SARS-COV-2 (COVID-19), NAAT (12/28/2023 5:31 PM EDT) SARS-CoV-2 (COVID-19) Result Negative Negative 12/28/2023 6:27 PM EDT LABORATORY [facility] Comment: 2019 Novel Coronavirus not detected. This express test was developed and its performance characteristics determined by [employer]. It has not been cleared or approved by the U.S. Food and Drug Administration (FDA). FDA does not require this test to go thru premarket FDA review. This test is used for clinical purposes. It should not be regarded as investigational or for research. This laboratory is certified under the Clinical Laboratory Improvement Amendments (CLIA) as qualified to perform high complexity clinical laboratory testing. This test is a nucleic acid amplification test (NAAT), a reverse transcriptase polymerase chain reaction (RT-PCR) test, or a Centers for Disease Control- acceptable equivalent. The test is performed in a high complexity Clinical Laboratory Improvement Amendments-(CLIA) certified laboratory. The test is acceptable for SARS-CoV-2 diagnosis, surveillance, and travel within the [place] and to most countries. Please check with local testing authorities about requirements before travel. The validation of bronchial specimens, tracheal aspirates, and sputum for this assay was developed and performance characteristics determined by [employer] [facility]. The validation of alternate specimen types has not been cleared or approved by the U.S. Food and Drug Administration (FDA). It has been determined that such clearance is not necessary. Upper Respiratory Mid-turbinate nasal swab / Unknown Non-blood Collection / Unknown 12/28/2023 5:31 PM EDT 12/28/2023 5:34 PM EDT Peterson Sweeney MD LAB MICRO - GENERAL ORDERABLES Performing Organization Address City/[facility]/ZIP Co de Phone Number LABORATORY [address] [address] * (ABNORMAL) MICROSCOPIC EXAM, URINE (12/28/2023 4:58 PM EDT) RBC, Urine 0-2 0 - 2 /HPF 12/28/2023 5:21 PM EDT LABORATORY [facility] WBC, Urine 3-5(A) 0 - 2 /HPF 12/28/2023 5:21 PM EDT LABORATORY [facility] Bacteria, Urine 26-50(A) 0 - 25 /HPF 12/28/2023 5:21 PM EDT LABORATORY [facility] Squamous Epithelial Cells, Urine Many(A) None /HPF 12/28/2023 5:21 PM EDT LABORATORY [facility] Urine Non-blood Collection / Unknown 12/28/2023 4:58 PM EDT 12/28/2023 5:04 PM EDT Ingrid Nickerson PA-C LAB URINE ORDER MATHIEU Performing Organization Address [facility]/ZIP Co de Phone Number LABORATORY [address] [address] * (ABNORMAL) URINALYSIS, REFLEX TO MICROSCOPIC (12/28/2023 4:58 PM EDT) Color, Urine Yellow Light Yellow, Yellow, Dark Yellow 12/28/2023 5:14 PM EDT LABORATORY GL Clarity, Urine Clear Clear 12/28/2023 5:14 PM EDT LAB[facility]ATORY [facility] Glucose, Urine Negative Negative mg/dL 12/28/2023 5:14 PM EDT LAB[facility]ATORY [facility] Bilirubin, Urine Negative Negative 12/28/2023 5:14 PM EDT LAB[facility]ATORY [facility] Ketone, Urine Negative Negative mg/dL 12/28/2023 5:14 PM EDT LABORATORY [facility] Specific [place], Urine 1.049(H) 1.003 - 1.030 12/28/2023 5:14 PM EDT LAB[facility]ATORY [facility] Blood, Urine Negative Negative 12/28/2023 5:14 PM EDT LAB[facility]ATORY [facility] pH, Urine 5.5 5.0 - 7.5 Units 12/28/2023 5:14 PM EDT LAB[facility]ORY [facility] Protein, Urine Negative Negative mg/dL 12/28/2023 5:14 PM EDT LAB[facility]ATORY [facility] Urobilinogen, Urine 0.2 0.2, 1.0 mg/dL 12/28/2023 5:14 PM EDT LAB[facility]ATORY [facility] Nitrite, Urine Negative Negative 12/28/2023 5:14 PM EDT LAB[facility]ATORY [facility] Esterase, Urine Trace(A) Negative 12/28/2023 5:14 PM EDT LAB[facility]ATORY [facility] Urine Non-blood Collection / Unknown 12/28/2023 4:58 PM EDT 12/28/2023 5:04 PM EDT Ingrid Nickerson PA-C LAB URINE ORDER [facility]ATHIEU LABORATORY [facility] [address] [place] [address] * US ABDOMEN LIMITED (12/28/2023 4:42 PM EDT) Anatomical Region Laterality Modality Abdomen, Body Ultrasound 12/28/2023 4:15 PM EDT Impressions 12/28/2023 4:51 PM EDT IMPRESSION: 1. No acute findings. 2. Subcentimeter hyperechoic lesion in the right hepatic lobe. This is nonspecific with differential including both benign and malignant etiologies. No corresponding abnormality seen on same day CT of the abdomen/pelvis. Consider 6 month follow-up ultrasound or nonemergent liver MRI as clinically warranted. THIS DOCUMENT HAS BEEN ELECTRONICALLY SIGNED BY TREY ANDERSEN MD Narrative 12/28/2023 4:51 PM EDT PROCEDURE INFORMATION: Exam: US Abdomen, Limited; Right Upper Quadrant Exam date and time: 12/28/2023 4:15 PM Age: 48 years old Clinical indication: Abdominal pain; Additional info: Epigastric and right upper quadrant pain. History of vomiting and bloody bowels TECHNIQUE: Imaging protocol: Real time ultrasound of the abdomen with image documentation. Limited exam focused on the right upper quadrant. COMPARISON: CT ABD/PELVIS W IV CONTRAST - WO ORAL CONTRAST 12/28/2023 4:05 PM FINDINGS: Liver: 0.5 x 0.5 x 0.6 cm hyperechoic nodule in the right hepatic lobe. Gallbladder: Normal. No gallstones. There is no gallbladder wall thickening. Biliary ducts: Normal. No stones. No dilation. Pancreas: The pancreas is poorly seen due to overlying shadowing bowel gas. Right kidney: No hydronephrosis or mass. Procedure Note Trey Andersen MD - 12/28/2023 PROCEDURE INFORMATION: Exam: US Abdomen, Limited; Right Upper Quadrant Exam date and time: 12/28/2023 4:15 PM Age: 48 years old Clinical indication: Abdominal pain; Additional info: Epigastric and right upper quadrant pain. History of vomiting and bloody bowels TECHNIQUE: Imaging protocol: Real time ultrasound of the abdomen with imagedocumentation. Limited exam focused on the right upper quadrant. COMPARISON: CT ABD/PELVIS W IV CONTRAST - WO ORAL CONTRAST 12/28/2023 4:05 PM FINDINGS: Liver: 0.5 x 0.5 x 0.6 cm hyperechoic nodule in the right hepatic lobe. Gallbladder: Normal. No gallstones. There is no gallbladder wallthickening. Biliary ducts: Normal. No stones. No dilation. Pancreas: The pancreas is poorly seen due to overlying shadowing bowelgas. Right kidney: No hydronephrosis or mass. IMPRESSION IMPRESSION: 1. No acute findings. 2. Subcentimeter hyperechoic lesion in the right hepatic lobe. This is nonspecific with differential including both benign and malignantetiologies. No corresponding abnormality seen on same day CT of the abdomen/pelvis. Consider 6 month follow-up ultrasound or nonemergent liver MRI asclinically warranted. THIS DOCUMENT HAS BEEN ELECTRONICALLY SIGNED BY TREY ANDERSEN MD Peterson Sweeney MD RAD ULTRA SOUND * CT ABD/PELVIS W IV CONTRAST - WO ORAL CONTRAST (12/28/2023 4:12 PM EDT) Anatomical Region Laterality Modality Body, Abdomen, Pelvis Computed T omography 12/28/2023 4:05 PM EDT Impressions 12/28/2023 4:39 PM EDT IMPRESSION: Mild gastritis and colitis which are favored infectious or inflammatory in etiology. THIS DOCUMENT HAS BEEN ELECTRONICALLY SIGNED BY TREY ANDERSEN MD Narrative 12/28/2023 4:39 PM EDT PROCEDURE INFORMATION: Exam: CT Abdomen And Pelvis With Contrast Exam date and time: 12/28/2023 4:05 PM Age: 48 years old Clinical indication: Other: Abd pain; Additional info: Abdominal pain, vomiting, diarrhea, blood in vomit and bowels TECHNIQUE: Imaging protocol: Computed tomography of the abdomen and pelvis with contrast. Radiation optimization: All CT scans at this facility use at least one of these dose optimization techniques: automated exposure control; mA and/or kV adjustment per patient size (includes targeted exams where dose is matched to clinical indication); or iterative reconstruction. Contrast material: OPTIRAY 320; Contrast volume: 100 ml; Contrast route: INTRAVENOUS (IV); COMPARISON: MR ABDOMEN ROUTINE 11/19/2021 10:30 AM FINDINGS: Liver: Focal fat deposition along the falciform ligament. Gallbladder and bile ducts: Normal. No calcified stones. No ductal dilation. Pancreas: Normal. No ductal dilation. Spleen: Normal. No splenomegaly. Adrenal glands: Normal. No mass. Kidneys and ureters: Normal. No hydronephrosis. Stomach and bowel: Mild gastric wall thickening. Small bowel is unremarkable. Diffuse mild colonic wall thickening and mucosal hyperenhancement. No obstruction. Appendix: No evidence of appendicitis. Intraperitoneal space: Unremarkable. No free air. No significant fluid collection. Vasculature: Unremarkable. No abdominal aortic aneurysm. Lymph nodes: Prominent scattered mesenteric lymph nodes measuring less than 1 cm in short axis, possibly reactive. Urinary bladder: Unremarkable as visualized. Reproductive: Unremarkable as visualized. Bones/joints: Unremarkable. No acute fracture. Soft tissues: Breast implants. Small fat containing umbilical hernia. Procedure Note Trey Andersen MD - 12/28/2023 PROCEDURE INFORMATION: Exam: CT Abdomen And Pelvis With Contrast Exam date and time: 12/28/2023 4:05 PM Age: 48 years old Clinical indication: Other: Abd pain; Additional info: Abdominal pain, vomiting, diarrhea, blood in vomit and bowels TECHNIQUE: Imaging protocol: Computed tomography of the abdomen and pelvis withcontrast. Radiation optimization: All CT scans at this facility use at least one ofthese dose optimization techniques: automated exposure control; mA and/or kV adjustment per patient size (includes targeted exams where dose is matchedto clinical indication); or iterative reconstruction. Contrast material: OPTIRAY 320; Contrast volume: 100 ml; Contrast route: INTRAVENOUS (IV); COMPARISON: MR ABDOMEN ROUTINE 11/19/2021 10:30 AM FINDINGS: Liver: Focal fat deposition along the falciform ligament. Gallbladder and bile ducts: Normal. No calcified stones. No ductaldilation. Pancreas: Normal. No ductal dilation. Spleen: Normal. No splenomegaly. Adrenal glands: Normal. No mass. Kidneys and ureters: Normal. No hydronephrosis. Stomach and bowel: Mild gastric wall thickening. Small bowel isunremarkable. Diffuse mild colonic wall thickening and mucosal hyperenhancement. No obstruction. Appendix: No evidence of appendicitis. Intraperitoneal space: Unremarkable. No free air. No significant fluid collection. Vasculature: Unremarkable. No abdominal aortic aneurysm. Lymph nodes: Prominent scattered mesenteric lymph nodes measuring lessthan 1 cm in short axis, possibly reactive. Urinary bladder: Unremarkable as visualized. Reproductive: Unremarkable as visualized. Bones/joints: Unremarkable. No acute fracture. Soft tissues: Breast implants. Small fat containing umbilical hernia. IMPRESSION IMPRESSION: Mild gastritis and colitis which are favored infectious or inflammatory in etiology. THIS DOCUMENT HAS BEEN ELECTRONICALLY SIGNED BY TREY ANDERSEN MD Peterson Sweeney MD RAD CT * PHOSPHORUS (12/28/2023 2:52 PM EDT) Phosphorus 3.0 2.5 - 4.8 mg/dL 12/28/2023 6:33 PM EDT LABORATORY [facility] Blood Venous blood specimen / Unknown Venipuncture / Unknown 12/28/2023 2:52 PM EDT 12/28/2023 2:56 PM EDT Raquel Craig PA-C LAB BLOOD ORDER MATHIEU Performing Organization Address City/[facility]/ZIP Co de Phone Number LABORATORY [address] [address] * MAGNESIUM (12/28/2023 2:52 PM EDT) Pathologist [facility] Magnesium 2.2 1.5 - 2.6 mg/dL 12/28/2023 6:33 PM EDT LABORATORY [facility] Blood Venous blood specimen / Unknown Venipuncture / Unknown 12/28/2023 2:52 PM EDT 12/28/2023 2:56 PM EDT Raquel Craig PA-C LAB BLOOD ORDER MATHIEU Performing Organization Address City/[facility]/ZIP Co de Phone Number LABORATORY [address] [address] * EXTRA LIGHT BLUE TOP (12/28/2023 2:52 PM EDT) Blood Venous blood specimen / Unknown Venipuncture / Unknown 12/28/2023 2:52 PM EDT 12/28/2023 2:56 PM EDT Ingrid Nickerson PA-C LAB BLOOD ORDER MATHIEU Performing Organization Address City/[facility]/ZIP Co de Phone Number LABORATORY [address] [address] * (ABNORMAL) DIFFERENTIAL, AUTOMATED (12/28/2023 2:52 PM EDT) WBC 17.17(H) 4.00 - 10.80 K/uL 12/28/2023 3:01 PM EDT LABORATORY [facility] Neutrophils % 78.2(H) 40.0 - 75.0 % 12/28/2023 3:01 PM EDT LABORATORY [facility] Lymphocytes % 13.6(L) 18.0 - 42.0 % 12/28/2023 3:01 PM EDT LABORATORY [facility] Monocytes % 6.6 1.0 - 11.0 % 12/28/2023 3:01 PM EDT LABORATORY [facility] Eosinophils % 0.8 0.0 - 6.0 % 12/28/2023 3:01 PM EDT LAB[facility]ATORY [facility] Basophils % 0.5 0.0 - 2.0 % 12/28/2023 3:01 PM EDT LABORATORY GL Immature Granulocytes % 0.3 0.0 - 2.0 % 12/28/2023 3:01 PM EDT LABORATORY GL Absolute Neutrophils 13.43(H) 1.80 - 7.70 K/uL 12/28/2023 3:01 PM EDT LABORATORY [facility] Absolute Lymphocytes 2.34 1.00 - 4.80 K/ul 12/28/2023 3:01 PM EDT LABORATORY [facility] Absolute Monocytes 1.13(H) 0.00 - 1.10 K/uL 12/28/2023 3:01 PM EDT LABORATORY [facility] Absolute Eosinophils 0.13 0.00 - 0.70 K/uL 12/28/2023 3:01 PM EDT LABORATORY [facility] Absolute Basophils 0.08 0.00 - 0.20 K/uL 12/28/2023 3:01 PM EDT LABORATORY GL Absolute Immature Granulocytes 0.06 0.00 - 0.20 K/uL 12/28/2023 3:01 PM EDT LABORATORY GL Blood Venous blood specimen / Unknown Venipuncture / Unknown 12/28/2023 2:52 PM EDT 12/28/2023 2:56 PM EDT Ingrid Nickerson PA-C LAB BLOOD ORDER [facility]U LABORATORY [address] [address] * (ABNORMAL) CBC (12/28/2023 2:52 PM EDT) [facility] WBC 17.17(H) 4.00 - 10.80 K/uL 12/28/2023 3:01 PM EDT LABORATORY GL RBC 4.74 3.85 - 5.15 M/uL 12/28/2023 3:01 PM EDT LABORATORY [facility] HGB 14.7 12.0 - 15.3 g/dL 12/28/2023 3:01 PM EDT LABORATORY GL HCT 40.8 36.0 - 45.2 % 12/28/2023 3:01 PM EDT LABORATORY [facility] MCV 86.1 81.5 - 97.5 fL 12/28/2023 3:01 PM EDT LABORATORY [facility] MCH 31.0 27.0 - 34.0 pg 12/28/2023 3:01 PM EDT LABORATORY [facility] MCHC 36.0 32.0 - 36.0 g/dL 12/28/2023 3:01 PM EDT LABORATORY [facility] RDW 13.4 11.5 - 15.5 % 12/28/2023 3:01 PM EDT LABORATORY [facility] PLT 462(H) 140 - 400 K/uL 12/28/2023 3:01 PM EDT LABORATORY [facility] MPV 8.8 6.6 - 11.1 fL 12/28/2023 3:01 PM EDT LABORATORY [facility] nRBCs 0 <=0 /100 WBCs 12/28/2023 3:01 PM EDT LABORATORY [facility] Blood Venous blood specimen / Unknown Venipuncture / Unknown 12/28/2023 2:52 PM EDT 12/28/2023 2:56 PM EDT Ingrid Nickerson PA-C LAB BLOOD ORDER [facility] LABORATORY [address] [id number] * TROPONIN T, HIGH SENSITIVITY (12/28/2023 2:52 PM EDT) [facility] Troponin T, High Sensitivity 8 <=14 ng/L 12/28/2023 3:22 PM EDT LABORATORY [facility] Blood Venous blood specimen / Unknown Venipuncture / Unknown 12/28/2023 2:52 PM EDT 12/28/2023 2:56 PM EDT Ingrid Nickerson PA-C LAB BLOOD ORDER [facility] LABORATORY [address] [id number] * LIPASE (12/28/2023 2:52 PM EDT) Lipase 31 13 - 60 U/L 12/28/2023 3:22 PM EDT LABORATORY GL Blood Venous blood specimen / Unknown Venipuncture / Unknown 12/28/2023 2:52 PM EDT 12/28/2023 2:56 PM EDT Ingrid Nickerson PA-C LAB BLOOD ORDER MATHIEU LABORATORY [address] [address] * (ABNORMAL) LACTATE (12/28/2023 2:52 PM EDT) Pathologist [facility] Lactate 2.6(H) 0.4 - 2.0 mmol/L 12/28/2023 3:16 PM EDT LABORATORY [facility] Blood Venous blood specimen / Unknown Venipuncture / Unknown 12/28/2023 2:52 PM EDT 12/28/2023 2:56 PM EDT Ingrid Nickerson PA-C LAB BLOOD ORDER MATHIEU Performing Organization Address [facility] Co de Phone Number LABORATORY [address] [address] * (ABNORMAL) COMPREHENSIVE METABOLIC PANEL (12/28/2023 2:52 PM EDT) BUN 16 6 - 20 mg/dL 12/28/2023 3:34 PM EDT LABORATORY GL Creatinine 0.8 0.5 - 1.0 mg/dL 12/28/2023 3:34 PM EDT LAB[facility]ATORY [facility] Estimated Glomerular Filtration Rate 86 >=60 mL/min 12/28/2023 3:34 PM EDT LAB[facility] Comment:eGFR is calculated b ased on the CKD-EPI 2020 equation Sodium 136 135 - 146 mmol/L 12/28/2023 3:34 PM EDT LAB[facility]ATORY [facility] Potassium 2.3(LL) 3.5 - 5.1 mmol/L 12/28/2023 3:34 PM EDT LAB[facility] Comment:Results rechecked. Chloride 96(L) 98 - 107 mmol/L 12/28/2023 3:34 PM EDT LAB[facility] CO2 26 22 - 32 mmol/L 12/28/2023 3:34 PM EDT LAB[facility] Anion Gap 14 7 - 15 mmol/L 12/28/2023 3:34 PM EDT LAB[facility] Glucose 119 70 - 120 mg/dL 12/28/2023 3:34 PM EDT LAB[facility] Albumin 4.3 3.8 - 5.0 g/dL 12/28/2023 3:34 PM EDT LAB[facility] AST 25 10 - 35 U/L 12/28/2023 3:34 PM EDT LAB[facility]ORY [facility] Comment:Result may be falsel y elevated due to hemolysis. Alkaline Phosphatase 105 35 - 130 U/L 12/28/2023 3:34 PM EDT LAB[facility]ORY [facility] Bilirubin, Total 0.4 <=1.2 mg/dL 12/28/2023 3:34 PM EDT LAB[facility] Calcium 9.5 8.4 - 10.2 mg/dL 12/28/2023 3:34 PM EDT LAB[facility] Protein 7.2 6.0 - 8.3 g/dL 12/28/2023 3:34 PM EDT LAB[facility] ALT 14 10 - 35 U/L 12/28/2023 3:34 PM EDT LAB[facility] Blood Venous blood specimen / Unknown Venipuncture / Unknown 12/28/2023 2:52 PM EDT 12/28/2023 2:56 PM EDT Ingrid Nickerson PA-C LAB BLOOD ORDER MATHEIU LAB[facility] [address] [place] [address] * XR CHEST 1 VIEW (12/28/2023 2:23 PM EDT) Anatomical Region Laterality Modality Chest Digital Radiogra phy 12/28/2023 2:16 PM EDT Impressions 12/28/2023 2:56 PM EDT IMPRESSION: No acute findings. THIS DOCUMENT HAS BEEN ELECTRONICALLY SIGNED BY TREY ANDERSEN MD Narrative 12/28/2023 2:56 PM EDT PROCEDURE INFORMATION: Exam: XR Chest Exam date and time: 12/28/2023 2:16 PM Age: 48 years old Clinical indication: Other: PT reports for 8 mo she hasn't been tolerating oral intake well. Reports she is vomiting up blood and having bloody stool/mucous stool. Reports she is fatigued, bloated, dizzy, disoriented. ; Additional info: Abdominal pain TECHNIQUE: Imaging protocol: Radiologic exam of the chest. Views: 1 view. COMPARISON: CT PULMONARY EMBOLUS W CONTRAST 09/09/2021 7:50 PM FINDINGS: Lungs: Unremarkable. No consolidation. Pleural spaces: Unremarkable. No pleural effusion. No pneumothorax. Heart/Mediastinum: Unremarkable. No cardiomegaly. Bones/joints: Unremarkable. Procedure Note Trey Andersen MD - 12/28/2023 PROCEDURE INFORMATION: Exam: XR Chest Exam date and time: 12/28/2023 2:16 PM Age: 48 years old Clinical indication: Other: PT reports for 8 mo she hasn't been toleratingoral intake well. Reports she is vomiting up blood and having bloodystool/mucous stool. Reports she is fatigued, bloated, dizzy, disoriented. ; Additionalinfo: Abdominal pain TECHNIQUE: Imaging protocol: Radiologic exam of the chest. Views: 1 view. COMPARISON: CT PULMONARY EMBOLUS W CONTRAST 09/09/2021 7:50 PM FINDINGS: Lungs: Unremarkable. No consolidation. Pleural spaces: Unremarkable. No pleural effusion. No pneumothorax. Heart/Mediastinum: Unremarkable. No cardiomegaly. Bones/joints: Unremarkable. IMPRESSION IMPRESSION: No acute findings. THIS DOCUMENT HAS BEEN ELECTRONICALLY SIGNED BY TREY ANDERSEN MD Ingrid Nickerson PA-C RADIOLOGY ([facility]) documented in this encounter Visit Diagnoses Diagnosis Colitis- Primary Other and unspecified noninfectious gastroenteritis and colitis Tachycardia Tachycardia, unspecified Hypokalemia Hypopotassemia Gastritis with hemorrhage, unspecified chronicity, unspecified gastritis type Colitis, acute Other and unspecified noninfectious gastroenteritis and colitis Chest pain Chest pain, unspecified Colitis Other and unspecified noninfectious gastroenteritis and colitis Hypokalemia Hypopotassemia Major depressive disorder Major depressive disorder, single episode, unspecified Esophageal reflux Generalized anxiety disorder Attention deficit hyperactivity disorder, predominantly inattentive type Chronic constipation Unspecified constipation Gastritis Unspecified gastritis and gastroduodenitis without mention of hemorrhage Anemia Anemia, unspecified Hypocalcemia documented in this encounter Administered Medications Inactive Administered Medications - up to 3 most recent administrations Medication Order MAR Action Action Date Dose Rate Site Acetaminophen (Tylenol) tab 975 mg 975 mg, Oral, Q8H PRN Pain, Mild, Fever >38C(100.5F), Headache, Starting on Edie 12/28/23 at 1810, Until 12/31/23 at 1509, Maximum of 4 grams (4000 mg) per day. Given 12/30/2023 9:13 AM EDT 975 mg Given 12/29/2023 7:49 PM EDT 975 mg Given 12/29/2023 7:49 AM EDT 975 mg Bisacodyl (Dulcolax) supp 10 mg 10 mg, Rectal, DAILY PRN Constipation, Starting on 12/31/23 at 1810, Until 12/31/23 at 1509, Administer if no bowel movement within past 72 hours and patient unable to take oral medications. Bisacodyl (Dulcolax) tab 5 mg 5 mg, Oral, DAILY PRN Constipation, Starting on 12/31/23 at 1810, Until 12/31/23 at 1509, Administer in addition to polyethylene glycol and senna-docusate if no bowel movement in past 72 hours. calcium CARBonate (Tums E-X) tab CHEW 1,300 mg 1,300 mg, Oral, BID (.AM/PM), First dose on [facility] 12/30/23 at 0815, Until Discontinued Given 12/31/2023 8:03 AM EDT 1,30 0 mg Given 12/30/2023 9:12 PM EDT 1,300 mg Given 12/30/2023 9:11 AM EDT 1,300 mg clonazePAM (KlonoPIN) tab 1 mg 1 mg, Oral, BID (.AM/PM), First dose on Edie 12/28/23 at 2100, Until Discontinued Given 12/31/2023 8:03 AM EDT 1 mg Given 12/30/2023 9:11 PM EDT 1 mg Given 12/30/2023 9:11 AM EDT 1 mg Desvenlafaxine Succinate ER (Pristiq) tab 100 mg 100 mg, Oral, Daily(AM), First dose on Mon12/29/23 at 0900, Until Discontinued, Swallow tablet whole; do not crush, chew, divide, or dissolve. Given 12/31/2023 8:06 AM EDT 100 mg Given 12/30/2023 9:13 AM EDT 100 mg Given 12/29/2023 9:45 AM EDT 100 mg Enoxaparin (Lovenox) inj 40 mg 40 mg, Subcutaneous, Daily(AM), First dose on Mon12/29/23 at 0900, Until Discontinued, If patient is on warfarin, inform provider if daily INR value is 2 or greater! Given 12/31/2023 8:04 AM EDT 40 mg Abdom en Left Lower Given 12/30/2023 9:10 AM EDT 40 mg Ab domen Right Lower Given 12/29/2023 7:49 AM EDT 40 mg Ab domen Left Lower Famotidine (Pepcid) tab 40 mg 40 mg, Oral, Daily(AM), First dose on Mon12/29/23 at 0900, Until Discontinued Given 12/31/2023 8:03 AM EDT 40 mg Given 12/30/2023 9:11 AM EDT 40 mg Given 12/29/2023 7:48 AM EDT 40 mg Hydrocortisone 2.5 % cream Rectal, TID PRN Pain, Mild, Starting on 12/30/23 at 2110, Until 12/31/23 at 1509, use for ANUSOL HC/PROCTOSOL HC Given 12/30/2023 9:37 PM EDT Ioversol (Optiray 320) inj 100 mL 100 mL, Intravenous, ONCE, On Edie 12/28/23 at 1645, For 1 dose, Radiology Medication Routing (Non-IR) Given 12/28/2023 4:45 PM EDT 100 mL Iron Sucrose (Venofer) 300 mg in NSS 250 mL ivpb 300 mg, IV Piggyback, ONCE, 1 dose, On 12/30/23 at 0800, Administer over 90 Minutes New Bag 12/30/2023 9:20 AM EDT 300 mg 193. 33 mL/hr isolyte-S pH 7.4 infusion Intravenous, at 100 mL/hr, Plasma-LYTE 148, isolyte-S, and isolyte-S pH 7.4 are considered equivalent - including for MAR barcode scanning., CONTINUOUS, Starting on Mon12/28/23 at 1845, Until Mon12/29/23 at 0444 Rate Verify 12/29/2023 2:17 AM EDT 100 mL/hr New Bag 12/28/2023 11:28 PM EDT 100 mL/hr isolyte-S pH 7.4 infusion Intravenous, at 150 mL/hr, Plasma-LYTE 148, isolyte-S, and isolyte-S pH 7.4 are considered equivalent - including for MAR barcode scanning., CONTINUOUS, Starting on Mon12/29/23 at 0815, Until Mon12/29/23 at 1814 New Bag 12/29/2023 3:14 PM EDT 150 mL/hr Rate Verify 12/29/2023 10:22 AM EDT 150 mL/hr Restarted 12/29/2023 8:08 AM EDT 150 mL/hr linaCLOtide (Linzess) cap 288 mcg 288 mcg, Oral, BEFORE BREAKFAST, First dose on Mon12/29/23 at 0745, Until Discontinued Given 12/31/2023 8:03 AM ED T 288 mcg Given 12/30/2023 9:10 AM EDT 288 mcg Given 12/29/2023 7:48 AM EDT 288 mcg melatonin tab 3 mg 3 mg, Oral, HS PRN Insomnia, Starting on Mon12/28/23 at 1810, Until Mon12/31/23 at 1509 Given 12/28/2023 8:44 PM EDT 3 mg methylPHENIDATE (Ritalin) tab 20 mg 20 mg, Oral, TID 06;12;18, First dose on Mon12/28/23 at 1845, Until Discontinued Given 12/31/2023 5:55 AM EDT 20 mg Given 12/30/2023 5:01 PM EDT 20 mg Given 12/30/2023 12:02 PM EDT 20 mg Morphine Sulfate (PF) inj 4 mg 4 mg, Intravenous, ONCE, On Mon12/28/23 at 1630, For 1 dose Given 12/28/2023 4:51 PM EDT 4 mg NSS 0.9% 1,000 mL bolus infusion Peripheral IV, at 1,000 mL/hr Administer over 60 Minutes, Administer entire volume within 60 minutes or less., ONCE, 1 dose, On Mon24 at 1545 New Bag 12/28/2023 3:20 PM EDT 1,000 mL 1000 mL/hr NSS 0.9% 750 mL bolus infusion Intravenous, at 750 mL/hr Administer over 60 Minutes, Administer entire volume within 60 minutes or less., ONCE, 1 dose, On Edie 12/28/23 at 1815 Rate Verify 12/28/2023 10:27 PM EDT 200 mL/hr Rate Change 12/28/2023 8:11 PM EDT 200 mL/hr Rate Change 12/28/2023 8:11 PM EDT 100 mL/hr omeprazole (PriLOSEC) cap 40 mg 40 mg, Oral, Daily(AM), First dose on 12/30/23 at 0900, Until Discontinued, This med should NOT be Crushed or Chewed Given 12/31/2023 8:03 AM EDT 40 mg Given 12/30/2023 9:10 AM EDT 40 mg ondansetron (Zofran) inj 4 mg 4 mg, IV Push, ONCE, On Edie 12/28/23 at 1545, For 1 dose Given 12/28/2023 3:20 PM EDT 4 mg ondansetron ODT (Zofran) tab 4 mg 4 mg, On Tongue, Q8H PRN Nausea, Vomiting, Starting on 12/30/23 at 1144, Until 12/31/23 at 1509 Given 12/31/2023 8:03 AM EDT 4 mg Given 12/30/2023 5:02 PM EDT 4 mg Given 12/30/2023 12:02 PM EDT 4 mg oxyCODONE (Oxy IR) tab 5 mg 5 mg, Oral, Q6H PRN Pain, Severe, Starting on 12/30/23 at 1156, Until 12/31/23 at 1509 Pantoprazole (Protonix) inj 40 mg 40 mg, IV Push, Q12H, First dose on Mon12/29/23 at 0900, Until Discontinued, IV push instructions: Flush I.V. Line before and after administration. In-line filter not required. 2-minute infusion: The volume of reconstituted solution (4mg/ml) to be injected may be administered intravenously over at least 2 minutes. ( Dilute each vial with 10 ml of 0.9% saline PF) Given 12/29/2023 9:45 AM EDT 40 mg Polyethylene Glycol 3350 (Miralax) oral powder 17 g 17 g (1 Packet), Oral, DAILY PRN Constipation, Starting on Edie 12/28/23 at 1810, Until Mon12/31/23 at 1509, Administer if no bowel movement within past 24 hours. potassium chloride 10 mEq in 100 mL ivpb LOCKED DOSE 10 mEq, Peripheral IV, ONCE, 1 dose, On Edie 12/28/23 at 1715, Administer over 60 Minutes, Standard infusion duration is 60 minutes. New Bag 12/28/2023 4:57 PM EDT 10 mEq 100 mL/hr potassium chloride 10 mEq in 100 mL ivpb LOCKED DOSE 10 mEq, Peripheral IV, Q1H, 3 doses, First dose (after last reorder) on Edie 12/28/23 at 1800, Last dose on Edie 12/28/23 at 2000, Administer over 60 Minutes, Standard infusion duration is 60 minutes. Rate Verify 12/28/2023 10:27 PM EDT 10 mEq/hr 100 mL/hr New Bag 12/28/2023 10:15 PM EDT 10 mEq 100 mL/hr Restarted 12/28/2023 9:11 PM EDT 10 mEq/hr 100 mL/hr potassium chloride ER tab 40 mEq 40 mEq, Oral, BID (.AM/PM), First dose (after last modification) on Mon12/29/23 at 0815, Until Discontinued Given 12/31/2023 8:03 AM EDT 40 mEq Given 12/30/2023 9:11 PM EDT 40 mEq Given 12/30/2023 9:11 AM EDT 40 mEq potassium CHLORide liquid 20 mEq 20 mEq, Oral, ONCE, On Edie 12/28/23 at 1715, For 1 dose, To avoid GI irritation, must further diilute 15 ml in 3 ounces H2O or other fluid Given 12/28/2023 4:47 PM EDT 20 mEq potassium CHLORide liquid 20 mEq 20 mEq, Oral, ONCE, On Edie 12/28/23 at 1800, For 1 dose, To avoid GI irritation, must further diilute 15 ml in 3 ounces H2O or other fluid Given 12/28/2023 7:14 PM EDT 20 mEq prochlorperazine (Compazine) inj 10 mg 10 mg, IV Push, ONCE, On 12/30/23 at 1100, For 1 dose Given 12/30/2023 11:54 AM EDT 10 mg QUEtiapine (SEROquel) tab 200 mg 200 mg, Oral, QHS, First dose on Edie 12/28/23 at 2200, Until Discontinued Given 12/30/2023 9:11 PM EDT 200 mg Given 12/29/2023 8:24 PM EDT 200 mg Given 12/28/2023 8:44 PM EDT 200 mg senna-docusate (Senokot-S) 1 Tablet 1 Tablet, Oral, BID PRN Constipation, Starting on 12/30/23 at 1810, Until 12/31/23 at 1509, Administer in addition to polyethylene glycol if no bowel movement within past 48 hours. vitamin b-12 (Cyanocobalamin) inj 1,000 mcg 1,000 mcg, Intramuscular, ONCE, On 12/30/23 at 0815, For 1 dose Given 12/30/2023 9:10 AM EDT 1,000 mcg Deltoid Left Upper documented in this encounter Active and Recently Administered Medications Times are shown in EDT. Scheduled Medication Order 12/29/2023 12/30/2023 12/31/2023 calcium CARBonate (Tums E-X) tab CHEW 1,300 mg 1,300 mg, Oral, BID (.AM/PM), First dose on 12/30/23 at 0815, Until Discontinued 910 (Given - Provider: Breonna Lake LPN)2111 (Given - Provider: Landon Allan RN) 08 (Given - Provider: Breonna Lake LPN) clonazePAM (KlonoPIN) tab 1 mg 1 mg, Oral, BID (.AM/PM), First dose on Edie 12/28/23 at 2100, Until Discontinued 0748 (Given - Provider: Breonna Lake LPN)2023 (Given - Provider: Yuliet Garcia RN) 09 (Given - Provider: Breonna Lake LPN)2110 (Given - Provider: Landon Allan RN) 08 (Given - Provider: Breonna Lake LPN) Desvenlafaxine Succinate ER (Pristiq) tab 100 mg 100 mg, Oral, Daily(AM), First dose on Mon12/29/23 at 0900, Until Discontinued, Swallow tablet whole; do not crush, chew, divide, or dissolve. 0945 (Given - Provider: Katerine Fernando RN) 0913 (Given - Provider: Breonna Lake LPN) 0806 (Given - Provider: Breonna Lake LPN) Enoxaparin (Lovenox) inj 40 mg 40 mg, Subcutaneous, Daily(AM), First dose on Mon12/29/23 at 0900, Until Discontinued, If patient is on warfarin, inform provider if daily INR value is 2 or greater! 0749 (Given - Provider: Breonna Lake LPN) 0910 (Given - Provider: Breonna Lake LPN) 0804 (Given - Provider: Breonna Lake LPN) Famotidine (Pepcid) tab 40 mg 40 mg, Oral, Daily(AM), First dose on Mon12/29/23 at 0900, Until Discontinued 0748 (Given - Provider: Breonna Lake LPN) 0911 (Given - Provider: Breonna Lake LPN) 0803 (Given - Provider: Breonna Lake LPN) Iron Sucrose (Venofer) 300 mg in NSS 250 mL ivpb (COMPLETED) 300 mg, IV Piggyback, ONCE, 1 dose, On 12/30/23 at 0800, Administer over 90 Minutes 0920 (New Bag - Provider: Breonna Lake LPN) linaCLOtide (Linzess) cap 288 mcg 288 mcg, Oral, BEFORE BREAKFAST, First dose on Mon12/29/23 at 0745, Until Discontinued 0748 (Given - Provider: Breonna Lake LPN) 0910 (Given - Provider: Breonna Lake LPN) 0803 (Given - Provider: Breonna Lake LPN) methylPHENIDATE (Ritalin) tab 20 mg 20 mg, Oral, TID 06;12;18, First dose on Mon12/28/23 at 1845, Until Discontinued 0514 (Given - Provider: Landon Allan RN)1236 (Given - Provider: Breonna Lake LPN)1813 (Given - Provider: Breonna Lake LPN) 0630 (Given - Provider: Yuliet Garcia RN)1202 (Given - Provider: Breonna Lake LPN)170 (Given - Provider: Breonna Lake LPN) 0555 (Given - Provider: Landon Allan, DUSTY) omeprazole (PriLOSEC) cap 40 mg 40 mg, Oral, Daily(AM), First dose on 12/30/23 at 0900, Until Discontinued, This med should NOT be Crushed or Chewed 09 (Given - Provider: Breonna Lake LPN) 08 (Given - Provider: Breonna Lake LPN) Pantoprazole (Protonix) inj 40 mg (CANCELED) 40 mg, IV Push, Q12H, First dose on Mon12/29/23 at 0900, Until Discontinued, IV push instructions: Flush I.V. Line before and after administration. In-line filter not required. 2-minute infusion: The volume of reconstituted solution (4mg/ml) to be injected may be administered intravenously over at least 2 minutes. ( Dilute each vial with 10 ml of 0.9% saline PF) 0945 (Given - Provider: Katerine Fernando RN) potassium chloride ER tab 40 mEq 40 mEq, Oral, BID (.AM/PM), First dose (after last modification) on Mon12/29/23 at 0815, Until Discontinued 07 (Given - Provider: Breonna Lake LPN)2023 (Given - Provider: Yuliet Garcia RN) 09 (Given - Provider: Breonna Lake LPN)2110 (Given - Provider: Landon Allan RN) 802 (Given - Provider: Breonna Lake LPN) prochlorperazine (Compazine) inj 10 mg (COMPLETED) 10 mg, IV Push, ONCE, On 12/30/23 at 1100, For 1 dose 1154 (Given - Provider: Linnette Tang RN) QUEtiapine (SEROquel) tab 200 mg 200 mg, Oral, QHS, First dose on Edie 12/28/23 at 2200, Until Discontinued 2023 (Given - Provider: Yuliet Garcia RN) 2110 (Given - Provider: Landon Allan, DUSTY) vitamin b-12 (Cyanocobalamin) inj 1,000 mcg (COMPLETED) 1,000 mcg, Intramuscular, ONCE, On Mon12/30/23 at 0815, For 1 dose 0910 (Given - Provider: Breonna Lake LPN) Continuous Medication Order 12/29/2023 12/30/2023 12/31/2023 isolyte-S pH 7.4 infusion () Intravenous, at 100 mL/hr, Plasma-LYTE 148, isolyte-S, and isolyte-S pH 7.4 are considered equivalent - including for MAR barcode scanning., CONTINUOUS, Starting on Edie 12/28/23 at 1845, Until Mon12/29/23 at 0444 0217 (Rate Verify - Provider: Landon Allan RN)0513 (Stopped - Provider: Landon Allan RN)0515 (Stopped - Provider: Landon Allan RN) isolyte-S pH 7.4 infusion () Intravenous, at 150 mL/hr, Plasma-LYTE 148, isolyte-S, and isolyte-S pH 7.4 are considered equivalent - including for MAR barcode scanning., CONTINUOUS, Starting on Mon12/29/23 at 0815, Until Mon12/29/23 at 1814 0806 (New Bag - Provider: Breonna Lake LPN)0806 (Paused - Provider: Breonna Lake LPN)0808 (Restarted - Provider: Breonna Lake LPN)1022 (Rate Verify - Provider: Breonna Lake LPN)1500 (Stopped - Provider: Yuliet Garcia RN)1514 (New Bag - Provider: Linnette Tang RN)2110 (Stopped - Provider: Yuliet Garcia, DUSTY) PRN Medication Order 12/29/2023 12/30/2023 12/31/2023 Acetaminophen (Tylenol) tab 975 mg 975 mg, Oral, Q8H PRN Pain, Mild, Fever >38C(100.5F), Headache, Starting on Edie 12/28/23 at 1810, Until Mon12/31/23 at 1509, Maximum of 4 grams (4000 mg) per day. 0749 (Given - Provider: Breonna Lake LPN)1949 (Given - Provider: Yuliet Garcia, RN) 0913 (Given - Provider: Breonna Lake LPN) Bisacodyl (Dulcolax) supp 10 mg(Linked Group 1) 10 mg, Rectal, DAILY PRN Constipation, Starting on 12/31/23 at 1810, Until 12/31/23 at 1509, Administer if no bowel movement within past 72 hours and patient unable to take oral medications. Bisacodyl (Dulcolax) tab 5 mg(Linked Group 1) 5 mg, Oral, DAILY PRN Constipation, Starting on 12/31/23 at 1810, Until 12/31/23 at 1509, Administer in addition to polyethylene glycol and senna-docusate if no bowel movement in past 72 hours. Hydrocortisone 2.5 % cream Rectal, TID PRN Pain, Mild, Starting on 12/30/23 at 2110, Until 12/31/23 at 1509, use for ANUSOL HC/PROCTOSOL HC 2136 (Given - Provider: Landon Allan, DUSTY) melatonin tab 3 mg 3 mg, Oral, HS PRN Insomnia, Starting on Edie 12/28/23 at 1810, Until 12/31/23 at 1509 ondansetron ODT (Zofran) tab 4 mg 4 mg, On Tongue, Q8H PRN Nausea, Vomiting, Starting on 12/30/23 at 1144, Until 12/31/23 at 1509 1202 (Given - Provider: Breonna Lake LPN)1702 (Given - Provider: Breonna Lake LPN - Comment: aaron givens md) 0803 (Given - Provider: Breonna Lake LPN) oxyCODONE (Oxy IR) tab 5 mg 5 mg, Oral, Q6H PRN Pain, Severe, Starting on 12/30/23 at 1156, Until 12/31/23 at 1509 Polyethylene Glycol 3350 (Miralax) oral powder 17 g(Linked Group 1) 17 g (1 Packet), Oral, DAILY PRN Constipation, Starting on Edie 12/28/23 at 1810, Until 12/31/23 at 1509, Administer if no bowel movement within past 24 hours. senna-docusate (Senokot-S) 1 Tablet(Linked Group 1) 1 Tablet, Oral, BID PRN Constipation, Starting on 12/30/23 at 1810, Until 12/31/23 at 1509, Administer in addition to polyethylene glycol if no bowel movement within past 48 hours. sodium chloride 0.9 % flush/inj 3 mL 3 mL, IV Push, PRN Other, Line Patency, Starting on Edie 12/28/23 at 1805, Until 12/31/23 at 1509, Do not flush if lock, PICC, or central line not in place, IV infusing or unable to flush Linked Groups Order Group 1: Polyethylene Glycol 3350 (Miralax) oral powder 17 gJump to med 17 g (1 Packet), Oral, DAILY PRN Constipation, Starting on Edie 12/28/23 at 1810, Until 12/31/23 at 1509, Administer if no bowel movement within past 24 hours. And senna-docusate (Senokot-S) 1 TabletJump to med 1 Tablet, Oral, BID PRN Constipation, Starting on 12/30/23 at 1810, Until 12/31/23 at 1509, Administer in addition to polyethylene glycol if no bowel movement within past 48 hours. And Bisacodyl (Dulcolax) tab 5 mgJump to med 5 mg, Oral, DAILY PRN Constipation, Starting on 12/31/23 at 1810, Until 12/31/23 at 1509, Administer in addition to polyethylene glycol and senna- docusate if no bowel movement in past 72 hours. And Bisacodyl (Dulcolax) supp 10 mgJump to med 10 mg, Rectal, DAILY PRN Constipation, Starting on 12/31/23 at 1810, Until 12/31/23 at 1509, Administer if no bowel movement within past [...] the patient have Health Care Power of Event Coordinator Marketing And Sales? No Full Code 07/19/2021 4:00 PM 07/19/2021 9:05 PM Thi s order reflects the patients wishes and were consensually agreed upon. Full Code 07/19/2021 3:53 PM 07/19/2021 4:00 PM Thi s order reflects the patients wishes and were consensually agreed upon. Full Code 07/19/2021 12:51 PM 07/19/2021 3:53 PM Th is order reflects the patients wishes and were consensually agreed upon. Care Teams Pawn Broker Relationship Specialty Start Date End Date Laura Tse MD [id number] [facility] [place] [id number] PCP - General Family Medicine 10/20/16 documented as of this encounter
--- OUTSIDE RECORDS SUMMARY | 2024-03-23 03:18 | External Medical Summary ---
Author Name Unknown Address Unknown Organization K1F:LABORATORY [facility] - [address] [place] [address] Laboratory Report Ordering Provider Test Date Status ODALYS,PUSHPA 01/26/2024 23:08:27 Final Less than 0.5 ng/mL: Low ris k for progression to sepsis. Review patients condition for localized infections.

0.5 to 2.0 ng/mL: Intermediate risk for progresion to sepsis. Review underlying conditions. Recommend repeat PCT after 6 hours has elapsed.

Greater than 2.0 ng/mL: high risk for progression to sepsis unless other causes are known. Observation Date Value Abnormality Reference (Units ) Status Procalcitonin [Mass/volume] in Serum or Plasma by Immunoassay 01/26/2024 23:08:27 0.07 <0.10 (ng/mL) Final Performing Location LABORATORY [facility] - [address] [place] [address]
--- OUTSIDE RECORDS SUMMARY | 2024-03-23 03:18 | External Medical Summary ---
Author Name Unknown Address Unknown Organization K1F:LABORATORY [facility] - [address] [place] [address] Laboratory Report Ordering Provider Test Date Status PUSHPA MORROW 01/26/2024 23:08:27 Final Observation Date Value Abnormality Reference (Units ) Status CRP, low-sensitivity 01/26/2024 23:08:27 5 <=5 (mg/L) Final Performing Location LABORATORY [facility] - [address] [place] [address]
--- OUTSIDE RECORDS SUMMARY | 2024-03-23 03:18 | External Medical Summary ---
Author Name Unknown Address Unknown Organization K01:LABORATORY [facility] [place] - [address] [place] [address] Laboratory Report Ordering Provider Test Date Status IDRIS RAM 01/27/2024 02:48:41 Final <10,000 colonies/ml normal f sami, one colony type Observation Date Value Abnormality Reference (Units ) Status Bacteria identified in Specimen by Culture 01/27/2024 02:48:41 [id number]^ENTEROC OCCUS SPECIES Abnormal Final >100,000 colonies/mL Enteroc occus species Performing Location LABORATORY [facility] - [address] [place] [address] Ordering Provider Test Date Status IDRIS RAM 01/27/2024 02:48:41 Final Observation Date Value Abnormality Reference (Units ) Status Ampicillin 01/27/2024 02:48:41 <=2 Susceptible Final Nitrofurantoin susceptibility 01/27/2024 02:48:41 <=16 Susceptible Final Tetracyclinesusceptibility 01/27/2024 02:48:41 >=16 Resistant Final Vancomycinsusceptibility 01/27/2024 02:48:41 2 Susceptible Final Test: Culture, Urine, Quanti tative
Specimen Source: Urine, Clean Catch
Specimen Type: Urine
Specimen Date: 01/27/2024 024
Result Date: 01/30/2024 0940
Result Status: Final result
Abnormal: Yes
Resulting Lab: LABORATORY [facility]
[address]
[place] [address]

CULTURE

>100,000 colonies/mL Enterococcus species (Abnormal)

<10,000 colonies/ml normal chrissy, one colony type

SUSCEPTIBILITY

Enterococcus
species
METHOD MICROBROTH
DILUTIONS

AMPICILLIN <=2 Susceptible
NITROFURANTOIN <=16 Susceptible
TETRACYCLINE >=16 Resistant
VANCOMYCIN 2 Susceptible

null Performing Location LABORATORY [facility] - [address] [facility] [address]
--- OUTSIDE RECORDS SUMMARY | 2024-03-23 03:18 | External Medical Summary ---
Author Name Unknown Address Unknown Organization K1F:LABORATORY [facility] - [address] [place] [address] Laboratory Report Ordering Provider Test Date Status IDRIS RAM 01/26/2024 23:08:27 Final Observation Date Value Abnormality Reference (Units ) Status BUN 01/26/2024 23:08:27 13 6-20 (mg/dL) Final Creatinine 01/26/2024 23:08:27 0.8 0.5-1.0 (mg/dL) Final Glomerular filtration rate/1.73 sq M.predicted [Volume Rate/Area] in Serum, Plasma or Blood by Creatinine-based formula (CKD-EPI) 01/26/2024 23:08:27 >90 >=60 (mL/min) Final eGFR is calculated based on the CKD-EPI 2020 equation Sodium 01/26/2024 23:08:27 139 135-146 (m mol/L) Final Potassium 01/26/2024 23:08:27 2.7 Below low normal 3.5 -5.1 (mmol/L) Final Cl 01/26/2024 23:08:27 98 98-107 (mm ol/L) Final CO2 01/26/2024 23:08:27 28 22-32 (mmo l/L) Final Anion gap 01/26/2024 23:08:27 13 7-15 (mmol /L) Final Glucose 01/26/2024 23:08:27 119 70-120 (mg /dL) Final Albumin 01/26/2024 23:08:27 4.7 3.8-5.0 (g /dL) Final AST (Aspartate aminotransferase) 01/26/2024 23:08:27 20 10-35 (U/L) Fin al Alk Phos 01/26/2024 23:08:27 141 Above high normal 35 -130 (U/L) Final Bilirubin, Total 01/26/2024 23:08:27 0.3 <=1 .2 (mg/dL) Final Calcium 01/26/2024 23:08:27 10.0 8.4-10.2 ( mg/dL) Final Protein 01/26/2024 23:08:27 8.0 6.0-8.3 (g /dL) Final ALT (Alanine aminotransferase) 01/26/2024 23:08:27 13 10-35 (U/L) Andrea iverson Performing Location LABORATORY [facility] - [address] [place] [address] [place] [address]
--- OUTSIDE RECORDS SUMMARY | 2024-03-23 03:18 | External Medical Summary ---
Author Name Unknown Address Unknown Organization K01:LABORATORY [facility] [place] - [address] [place] [address] Laboratory Report Ordering Provider Test Date Status WILDER QUILES 01/27/2024 03:13:09 Final Observation Date Value Abnormality Reference (Units ) Status Ferritin 01/27/2024 03:13:09 151 Above high normal 13 -150 (ng/mL) Final Postmenopausal women have hi gher ferritin levels than pre-menopausal women. The above reference interval is based on pre-menopausal women. Performing Location LABORATORY [facility] [place] - [address] [place] [address]
--- OUTSIDE RECORDS SUMMARY | 2024-03-23 03:18 | External Medical Summary ---
Author Name Unknown Address Unknown Organization K1F:LABORATORY [facility] - [address] [place] [address] Laboratory Report Ordering Provider Test Date Status IDRIS RAM 01/26/2024 23:08:27 Final Observation Date Value Abnormality Reference (Units ) Status Lipase 01/26/2024 23:08:27 35 13-60 (U/L ) Final Performing Location LABORATORY [facility] - [address] [place] [address]
--- OUTSIDE RECORDS SUMMARY | 2024-03-23 03:18 | External Medical Summary ---
Author Name Unknown Address Unknown Organization K1F:LABORATORY [facility] - [address] [place] [address] Laboratory Report Ordering Provider Test Date Status KYLE KOROMA 01/27/2024 03:13:09 Final Observation Date Value Abnormality Reference (Units ) Status Phosphate 01/27/2024 03:13:09 2.5 2.5-4.8 (m g/dL) Final Performing Location LABORATORY [facility] - [address] [place] [address]
--- OUTSIDE RECORDS SUMMARY | 2024-03-23 03:18 | External Medical Summary ---
Author Name Unknown Address Unknown Organization K1F:LABORATORY [facility] - [facility] [place] [address] Laboratory Report Ordering Provider Test Date Status IDRIS RAM 01/26/2024 23:08:27 Final Observation Date Value Abnormality Reference (Units ) Status WBC, Total 01/26/2024 23:08:27 9.54 4.00-10.80 (K/uL) Final RBC 01/26/2024 23:08:27 5.12 3.85-5.15 (M/uL) Final Hemoglobin 01/26/2024 23:08:27 16.2 Above high normal 12.0-15.3 (g/dL) Final HCT 01/26/2024 23:08:27 44.4 36.0-45.2 (%) Final MCV 01/26/2024 23:08:27 86.7 81.5-97.5 (fL) Final MCH 01/26/2024 23:08:27 31.6 27.0-34.0 (pg) Final MCHC 01/26/2024 23:08:27 36.5 32.0-36.0 (g/dL) Final RDW 01/26/2024 23:08:27 12.4 11.5-15.5 (%) Final Platelets 01/26/2024 23:08:27 473 Above high normal 140-400 (K/uL) Final MPV 01/26/2024 23:08:27 8.8 6.6-11.1 (fL) Final Nucleated erythrocytes/100 leukocytes [Ratio] in Blood by Automated count 01/26/2024 23:08:27 0 <=0 (/100 WBCs) Final Performing Location LABORATORY [facility] - [address] [place] [address]
--- OUTSIDE RECORDS SUMMARY | 2024-03-23 03:19 | External Medical Summary ---
Author Name Unknown Address Unknown Organization K01:LABORATORY [facility] - [address] [place] [address] Laboratory Report Ordering Provider Test Date Status ALEJANDROVIOLETSHERIF 12/29/2023 05:28:00 Final Observation Date Value Abnormality Reference (Units ) Status Erythrocyte sedimentation rate by Photometric method 12/29/2023 05:28:00 9 <20 (mm/hour) Final Performing Location LABORATORY [facility] - [address] [place] [address]
--- OUTSIDE RECORDS SUMMARY | 2024-03-23 03:19 | External Medical Summary ---
Author Name Unknown Address Unknown Organization K1F:LABORATORY [facility] - [address] [place] [address] Laboratory Report Ordering Provider Test Date Status LILI MONTERO 12/29/2023 05:28:00 Final Observation Date Value Abnormality Reference (Units ) Status Magnesium 12/29/2023 05:28:00 2.1 1.5-2.6 (m g/dL) Final Performing Location LABORATORY [facility] - [address] [place] [address]
--- OUTSIDE RECORDS SUMMARY | 2024-03-23 03:19 | External Medical Summary ---
Author Name Unknown Address Unknown Organization K1F:LABORATORY [facility] - [facility] [place] [place] [address] Laboratory Report Ordering Provider Test Date Status LILI MONTERO 12/30/2023 05:21:00 Final Observation Date Value Abnormality Reference (Units ) Status WBC, Total 12/30/2023 05:21:00 8.03 4.00-10.80 (K/uL) Final RBC 12/30/2023 05:21:00 3.53 3.85-5.15 (M/uL) Final Hemoglobin 12/30/2023 05:21:00 10.9 Below low normal 12.0-15.3 (g/dL) Final HCT 12/30/2023 05:21:00 31.3 Below low normal 36.0-45.2 (%) Final MCV 12/30/2023 05:21:00 88.7 81.5-97.5 (fL) Final MCH 12/30/2023 05:21:00 30.9 27.0-34.0 (pg) Final MCHC 12/30/2023 05:21:00 34.8 32.0-36.0 (g/dL) Final RDW 12/30/2023 05:21:00 13.8 11.5-15.5 (%) Final Platelets 12/30/2023 05:21:00 339 140-400 (K/uL) Final MPV 12/30/2023 05:21:00 8.6 6.6-11.1 (fL) Final Nucleated erythrocytes/100 leukocytes [Ratio] in Blood by Automated count 12/30/2023 05:21:00 0 <=0 (/100 WBCs) Final Performing Location LABORATORY [facility] - [address] [place] [address]
--- OUTSIDE RECORDS SUMMARY | 2024-03-23 03:19 | External Medical Summary ---
Author Name Unknown Address Unknown Organization K1F:LABORATORY [facility] - [address] [place] [address] Laboratory Report Ordering Provider Test Date Status ALEJANDROVIOLETSHERIF 12/31/2023 07:57:00 Final Observation Date Value Abnormality Reference (Units ) Status TSH 12/31/2023 07:57:00 0.86 0.27-4.20 (uIU/mL) Final Performing Location LABORATORY [facility] - [address] [place] [address]
--- OUTSIDE RECORDS SUMMARY | 2024-03-23 03:19 | External Medical Summary ---
Author Name Unknown Address Unknown Organization K1F:LABORATORY [facility] - [address] [place] [address] Laboratory Report Ordering Provider Test Date Status DEREK ALLENJOSELITO 12/29/2023 05:28:00 Final Less than 0.5 ng/mL: Low ris [...] [Mass/volume] in Serum or Plasma by Immunoassay 12/29/2023 05:28:00 0.11 Above high normal <0.10 (ng/mL) Final Performing Location LABORATORY [facility] - [address] [place] [address]
--- OUTSIDE RECORDS SUMMARY | 2024-03-23 03:19 | External Medical Summary | Summary of Care ---
Author Name Unknown Organization [facility] Address [address] [facility] [place] [address] Phone [phone] Care Team Providers Care Mower Operator Name Role Phone Laura Tse MD Primary Care Provider + Reason for Visit * Reason Onset Date Comments Procedure 12/29/2023 Encounter Details Date Type Department Care Team (Late st Contact Info) Description 12/29/2023 Telephone [facility] Gastroenterology [address] [place] [phone] Bess Queen PA-C [address] [place] [id number] Procedure (/) Allergies Active Allergy Reactions Criticality Noted Date Comments Erythromycin 01/09/2002 GI UPSET documented as of this encounter (statuses as of 12/29/2023) Medications Medication Sig Dispensed Refills Start Date End Date Status clonazePAM (KLONOPIN) 1 MG Tablet Take 1 Tablet by mouth in the morning and 1 Tablet before bedtime. 0 01/25/2019 Suspended Linzess 290 MCG Oral Capsule Take 1 Capsule by mouth daily before breakfast. 0 07/17/2020 Suspended Famotidine 40 MG Oral Tablet (PEPCID) Take 1 Tablet by mouth at bedtime. 0 Suspended Ondansetron 4 MG Oral Tablet Disintegrating Place 1 Tablet on tongue every 8 hours as needed for Nausea. dissolve on tongue. 20 Tablet 0 07/19/2021 Suspended Additional Information Potassium Chloride ER 20 MEQ Oral Tablet Extended Release Take by mouth 20 mEq 2 times a day . 0 Suspended QUEtiapine Fumarate 200 MG Oral Tablet (SEROquel) Take by mouth 1 Tablet before bedtime. 5 Tablet 0 01/20/2022 Suspended Additional Information Magnesium Oxide 400 MG Oral Capsule Take by mouth 1 Capsule in the morning. 30 Capsule 5 05/25/2022 Suspended Additional Information Patient not taking.Reported on 02/22/2023 Desvenlafaxine Succinate ER 100 MG Oral Tablet Extended Release 24 Hour Take 1 Tablet by mouth in the morning. 0 Suspended Vitron-C 65-125 MG Oral Tablet (Iron-Vitamin C 65-125 mg per tab) Take 1 Tablet by mouth in the morning. 0 Suspended Methylphenidate HCl 20 MG Oral Tablet (Ritalin) Take 1 Tablet by mouth in the morning and 1 Tablet at noon and 1 Tablet in the evening. 0 Suspended Prochlorperazine Maleate 5 MG Oral Tablet (Compazine) Take 1 Tablet by mouth every 8 hours as needed for Nausea or Vomiting. 0 01/12/2023 Suspended NexIUM 40 MG Oral Capsule Delayed Release Take 1 Capsule by mouth daily before breakfast. 0 09/06/2023 Suspended Ibuprofen 600 MG Oral Tablet (Motrin) Take 1 Tablet by mouth every 6 hours as needed (headache). 0 Suspended Cyanocobalamin 1000 MCG/ML Injection Solution (Cyanocobalamin) Inject 1,000 mcg into a large muscle every 30 days. 0 11/23/2023 Suspended documented as of this encounter (statuses as of 12/29/2023) Active Problems Problem Noted Date Diagnosed Date Gastritis 12/29/2023 Hypokalemia 12/28/2023 Colitis 12/28/2023 Chronic [...] as of this encounter (statuses as of 12/29/2023) Resolved Problems Problem Noted Date Diagnosed Date Resolved Date Encounter for supervision of other normal 02/27/2003 11/14/2003 Overview: ICD-10 update of inactive term Constipation 11/14/2003 Overview: ICD-10 update of inactive term URIN TRACT INFECTION NOS 08/2004 documented as of this encounter (statuses as of 12/29/2023) Immunizations Name Administration Dates Next Due TD, [...] encounter Miscellaneous Notes * Telephone Encounter - Bess Queen PA-C - 12/29/2023 4:11 PM EDT Please arrange an OP EGD and colonoscopy in 6-8 weeks. Orders placed. Patient currently still admitted. Thank you documented in this encounter Plan of Treatment Scheduled Orders Name Type Priority Associated Diagnoses Orde r Schedule EGD, FLEXIBLE, DIAGNOSTIC Procedures Routine Nausea and vomiting, unspecified vomiting type Gastritis, presence of bleeding unspecified, unspecified chronicity, unspecified gastritis type Ordered: 12/29/2023 COLONOSCOPY Gastro Lower Routine Colitis Ordered: 12/29/2023 Scheduled Procedures Name Priority Associated Diagnoses Date/Ti me COLONOSCOPY FLEXIBLE PROXIMA L DIAGNOSTIC Recall History of colonic polyps Health Maintenance Due Date Last Done Comments [...] Other and unspecified noninfectious gastroenteritis and colitis documented in this encounter Additional Health Concerns Infection Onset Date Last Indicated Resolved Time Gastrointestinal Rule-Out 12/28/2023 12/29/2023 C. difficile Rule-Out 12/28/2023 12/29/20232023 2:04 AM EDT documented as of this encounter Advance Directives Latest Code Status on File Code Status Date Activated Date Inactivated Comments Full Code 12/28/2023 6:11 PM This order reflects the patients wishes [...] the patient have Health Care Power of Tennis Instructor? No Full Code 07/19/2021 4:00 PM 07/19/2021 9:05 PM Thi s order reflects the patients wishes and were consensually agreed upon. Full Code 07/19/2021 3:53 PM 07/19/2021 4:00 PM Thi s order reflects the patients wishes and were consensually agreed upon. Full Code 07/19/2021 12:51 PM 07/19/2021 3:53 PM Th is order reflects the patients wishes and were consensually agreed upon. Care Teams Mower Operator Relationship Specialty Start Date End Date Laura Tse MD [address] [facility] [place] [address] PCP - General Family Medicine 10/20/16 documented as of this encounter
--- OUTSIDE RECORDS SUMMARY | 2024-03-23 03:19 | External Medical Summary ---
Author Name Unknown Address Unknown Organization K1F:LABORATORY [facility] - [address] [place] [address] Laboratory Report Ordering Provider Test Date Status KARLIDEANNA HILLS 12/28/2023 14:52:49 Final Observation Date Value Abnormality Reference (Units ) Status SYNC LEUKOCYTES IN BLOOD BY AUTOMATED COUNT 12/28/2023 14:52:49 17.17 Above high normal 4.00-10.80 (K/uL) Final Segs 12/28/2023 14:52:49 78.2 Above high normal 40.0-75.0 (%) Final Lymphs % 12/28/2023 14:52:49 13.6 Below low normal 18.0-42.0 (%) Final Monos 12/28/2023 14:52:49 6.6 1.0-11.0 (%) Final Eosinophils 12/28/2023 14:52:49 0.8 0.0-6.0 (%) Final Basos 12/28/2023 14:52:49 0.5 0.0-2.0 (%) Final Immature Granulocyte, Percent 12/28/2023 14:52:49 0.3 0.0-2.0 (%) Final Absolute Segs 12/28/2023 14:52:49 13.43 Above high normal 1.80-7.70 (K/uL) Final Lymphs, absolute 12/28/2023 14:52:49 2.34 1.00-4.80 (K/ul) Final Monos, Abs 12/28/2023 14:52:49 1.13 Above high normal 0.00-1.10 (K/uL) Final Eos, Abs 12/28/2023 14:52:49 0.13 0.00-0.70 (K/uL) Final Basos, Abs 12/28/2023 14:52:49 0.08 0.00-0.20 (K/uL) Final Immature Granulocytes, Number 12/28/2023 14:52:49 0.06 0.00-0.20 (K/uL) Final Performing Location LABORATORY [facility] - [address] [place], [place] [address] [place] [address]
--- OUTSIDE RECORDS SUMMARY | 2024-03-23 03:19 | External Medical Summary ---
Author Name Unknown Address Unknown Organization K1F:LABORATORY [facility] - [address] [place] [address] Laboratory Report Ordering Provider Test Date Status DEANNA CALVILLO 12/28/2023 16:58:12 Final Observation Date Value Abnormality Reference (Units ) Status Color of Urine by Auto 12/28/2023 16:58:12 Yellow Light Yellow, Yellow, Dark Yellow Final Clarity, Urine 12/28/2023 16:58:12 Clear Clear Final Glucose [Mass/volume] in Urine by Automated test strip 12/28/2023 16:58:12 Negative Negative (mg/dL) Final Bilirubin.total [Presence] in Urine by Automated test strip 12/28/2023 16:58:12 Negative Negative Final Ketones [Mass/volume] in Urine by Automated test strip 12/28/2023 16:58:12 Negative Negative (mg/dL) Final Specific gravity, Urine 12/28/2023 16:58:12 1.049 Above high normal 1.003-1.030 Final Hemoglobin [Presence] in Urine by Automated test strip 12/28/2023 16:58:12 Negative Negative Final pH, Urine 12/28/2023 16:58:12 5.5 5.0-7.5 (Units) Final Protein [Mass/volume] in Urine by Automated test strip 12/28/2023 16:58:12 Negative Negative (mg/dL) Final Urobilinogen [Mass/volume] in Urine by Automated test strip 12/28/2023 16:58:12 0.2 0.2, 1.0 (mg/dL) Final Nitrite [Presence] in Urine by Automated test strip 12/28/2023 16:58:12 Negative Negative Final Leukocyte esterase [Presence] in Urine by Automated test strip 12/28/2023 16:58:12 Trace Abnormal Negative Final Performing Location LABORATORY [facility] - [address] [place] [address]
--- OUTSIDE RECORDS SUMMARY | 2024-03-23 03:19 | External Medical Summary ---
Author Name Unknown Address Unknown Organization K1F:LABORATORY [facility] - [address] [place] [address] Laboratory Report Ordering Provider Test Date Status LILI MONTERO 12/30/2023 05:21:00 Final Observation Date Value Abnormality Reference (Units ) Status Phosphate 12/30/2023 05:21:00 2.7 2.5-4.8 (m g/dL) Final Performing Location LABORATORY [facility] - [address] [place] [address]
--- OUTSIDE RECORDS SUMMARY | 2024-03-23 03:19 | External Medical Summary ---
Author Name Unknown Address Unknown Organization K01:LABORATORY [facility] [place] - [address] [place] [address] Laboratory Report Ordering Provider Test Date Status DORI ALLEN 12/28/2023 21:53:00 Final Observation Date Value Abnormality Reference (Units ) Status Ferritin 12/28/2023 21:53:00 45 13-150 (ng /mL) Final Postmenopausal women have hi gher ferritin levels than pre-menopausal women. The above reference interval is based on pre-menopausal women. Performing Location LABORATORY [facility] - [address] [place] [address]
--- OUTSIDE RECORDS SUMMARY | 2024-03-23 03:19 | External Medical Summary ---
Author Name Unknown Address Unknown Organization K1F:LABORATORY [facility] - [address] [place] [address] Laboratory Report Ordering Provider Test Date Status LILI MONTERO 12/30/2023 05:21:00 Final Observation Date Value Abnormality Reference (Units ) Status BUN 12/30/2023 05:21:00 10 6-20 (mg/dL) Final Creatinine 12/30/2023 05:21:00 0.7 0.5-1.0 (mg/dL) Final Glomerular filtration rate/1.73 sq M.predicted [Volume Rate/Area] in Serum, Plasma or Blood by Creatinine-based formula (CKD-EPI) 12/30/2023 05:21:00 >90 >=60 (mL/min) Final eGFR is calculated based on the CKD-EPI 2020 equation Sodium 12/30/2023 05:21:00 143 135-146 (m mol/L) Final Potassium 12/30/2023 05:21:00 3.6 3.5-5.1 (m mol/L) Final Cl 12/30/2023 05:21:00 108 Above high normal 98 -107 (mmol/L) Final CO2 12/30/2023 05:21:00 25 22-32 (mmo l/L) Final Anion gap 12/30/2023 05:21:00 10 7-15 (mmol /L) Final Glucose 12/30/2023 05:21:00 101 70-120 (mg /dL) Final Calcium 12/30/2023 05:21:00 7.5 Below low normal 8.4 -10.2 (mg/dL) Final Performing Location LABORATORY [facility] - [address] [place] [address]
--- OUTSIDE RECORDS SUMMARY | 2024-03-23 03:19 | External Medical Summary ---
Author Name Unknown Address Unknown Organization K1F:LABORATORY [facility] - [address] [place] [address] Laboratory Report Ordering Provider Test Date Status LILI MONTERO 12/29/2023 05:28:00 Final Observation Date Value Abnormality Reference (Units ) Status BUN 12/29/2023 05:28:00 12 6-20 (mg/dL) Final Creatinine 12/29/2023 05:28:00 0.9 0.5-1.0 (mg/dL) Final Glomerular filtration rate/1.73 sq M.predicted [Volume Rate/Area] in Serum, Plasma or Blood by Creatinine-based formula (CKD-EPI) 12/29/2023 05:28:00 80 >=60 (mL/min) Final eGFR is calculated based on the CKD-EPI 2020 equation Sodium 12/29/2023 05:28:00 141 135-146 (m mol/L) Final Potassium 12/29/2023 05:28:00 3.1 Below low normal 3.5 -5.1 (mmol/L) Final Cl 12/29/2023 05:28:00 107 98-107 (mm ol/L) Final CO2 12/29/2023 05:28:00 25 22-32 (mmo l/L) Final Anion gap 12/29/2023 05:28:00 9 7-15 (mmol /L) Final Glucose 12/29/2023 05:28:00 108 70-120 (mg /dL) Final Calcium 12/29/2023 05:28:00 8.0 Below low normal 8.4 -10.2 (mg/dL) Final Performing Location LABORATORY [facility] - [address] [place] [address]
--- OUTSIDE RECORDS SUMMARY | 2024-03-23 03:19 | External Medical Summary ---
Author Name Unknown Address Unknown Organization K1F:LABORATORY [facility] - [address] [place] [address] Laboratory Report Ordering Provider Test Date Status MARIAM STEEN 12/28/2023 17:31:30 Final SCREENING Observation Date Value Abnormality Reference (Units ) Status SARS Coronavirus 2 12/28/2023 17:31:30 Negative N egative Final 2018 Novel Coronavirus not d etected.

This express test was developed and its performance characteristics determined by [email or web address]. It has not been cleared or approved [...] (RT-PCR) test, or a Centers for Disease Control-acceptable equivalent. The test is performed in a high complexity Clinical Laboratory Improvement Amendments-(CLIA) certified laboratory. The test is acceptable for SARS-CoV-2 diagnosis, surveillance, and travel within the [place] and to most countries. Please check with local testing authorities about requirements before travel.

The validation of bronchial specimens, tracheal aspirates, and sputum for this assay was developed and performance characteristics determined by [email or web address]. The validation of alternate specimen types has not been cleared or approved by the U.S. Food and Drug Administration (FDA). It has been determined that such clearance is not necessary. Performing Location LABORATORY [facility] - [address] [place] [address]
--- OUTSIDE RECORDS SUMMARY | 2024-03-23 03:19 | External Medical Summary ---
Author Name Unknown Address Unknown Organization K1F:LABORATORY [facility] [place] - [address] [place] [address] Laboratory Report Ordering Provider Test Date Status DORI ALLEN 12/29/2023 05:28:00 Final Observation Date Value Abnormality Reference (Units ) Status Retic, % (auto) 12/29/2023 05:28:00 1.78 0.80-1.90 (%) Final Reticulocytes, Absolute 12/29/2023 05:28:00 62.3 31.3-100.1 (K/uL) Final Reticulocyte fraction, immature 12/29/2023 05:28:00 15.0 2.5-20.6 (%) Final Reticulocyte HGB 12/29/2023 05:28:00 32.3 29.7-37.4 (pg) Final Performing Location LABORATORY [facility] [place] - [address] [place] [address]
--- OUTSIDE RECORDS SUMMARY | 2024-03-23 03:19 | External Medical Summary ---
Author Name Unknown Address Unknown Organization K01:[place] [facility] [place] [address] [place] [address] Laboratory Report Ordering Provider Test Date Status MARIAM STEEN 12/29/2023 01:19:01 Final Observation Date Value Abnormality Reference (Units) Status Bacteria identified in Specimen by Culture 12/29/2023 01:19:01 No Aeromonas species or Plesiomonas species isolated. Final Test: Gastrointestinal Patho gen Panel Culture
Specimen Source: Stool
Specimen Type: Stool
Specimen Date: 12/29/2023 1:19 AM
Result Date: 12/31/2023 11:18 AM
Result Status: Final result
Resulting Lab: [place]
[address]
[place] [address]

CULTURE

No Aeromonas species or Plesiomonas species isolated.

null Performing Location [facility] [place] [address] [place] [address]
--- OUTSIDE RECORDS SUMMARY | 2024-03-23 03:19 | External Medical Summary ---
Author Name Unknown Address Unknown Organization K01:LABORATORY [facility] - [address] [place] [address] Laboratory Report Ordering Provider Test Date Status DORI ALLEN 12/28/2023 21:53:00 Final Observation Date Value Abnormality Reference (Units ) Status Iron 12/28/2023 21:53:00 28 Below low normal 33-151 (ug/dL) Final Iron-binding capacity 12/28/2023 21:53:00 279 250-425 (ug/dL) Final Transferrin Sat % 12/28/2023 21:53:00 10 Below low normal 15-55 (%) Final Performing Location LABORATORY [facility] - [address] [place] [address]
--- OUTSIDE RECORDS SUMMARY | 2024-03-23 03:19 | External Medical Summary ---
Author Name Unknown Address Unknown Organization K1F:LABORATORY [facility] - [address] [place] [address] [address] [place] [address] Laboratory Report Ordering Provider Test Date Status KARLIDEANNA 12/28/2023 16:58:12 Final Observation Date Value Abnormality Reference (Units ) Status RBC, Urine 12/28/2023 16:58:12 0-2 0-2 (/HPF) Final WBC, Urine 12/28/2023 16:58:12 3-5 Abnormal 0-2 (/HPF) Final Bacteria [#/area] in Urine sediment by Microscopy high power field 12/28/2023 16:58:12 26-50 Abnormal 0-25 (/HPF) Final Epithelial cells.squamous [#/area] in Urine sediment by Microscopy high power field 12/28/2023 16:58:12 Many Abnormal None (/HPF) Final Performing Location LABORATORY [facility] - [address] [place] [address]
--- OUTSIDE RECORDS SUMMARY | 2024-03-23 03:19 | External Medical Summary ---
Author Name Unknown Address Unknown Organization K1F:LABORATORY [facility] - [address] [place] [address] Laboratory Report Ordering Provider Test Date Status LILI MONTERO 12/28/2023 14:52:49 Final Observation Date Value Abnormality Reference (Units ) Status Phosphate 12/28/2023 14:52:49 3.0 2.5-4.8 (m g/dL) Final Performing Location LABORATORY [facility] - [address] [place] [address]
--- OUTSIDE RECORDS SUMMARY | 2024-03-23 03:19 | External Medical Summary ---
Author Name Unknown Address Unknown Organization K1F:LABORATORY [facility] - [facility] [address] [place] [address] Laboratory Report Ordering Provider Test Date Status DEANNA CALVILLO 12/28/2023 14:52:49 Final Observation Date Value Abnormality Reference (Units ) Status WBC, Total 12/28/2023 14:52:49 17.17 Above high normal 4.00-10.80 (K/uL) Final RBC 12/28/2023 14:52:49 4.74 3.85-5.15 (M/uL) Final Hemoglobin 12/28/2023 14:52:49 14.7 12.0-15.3 (g/dL) Final HCT 12/28/2023 14:52:49 40.8 36.0-45.2 (%) Final MCV 12/28/2023 14:52:49 86.1 81.5-97.5 (fL) Final MCH 12/28/2023 14:52:49 31.0 27.0-34.0 (pg) Final MCHC 12/28/2023 14:52:49 36.0 32.0-36.0 (g/dL) Final RDW 12/28/2023 14:52:49 13.4 11.5-15.5 (%) Final Platelets 12/28/2023 14:52:49 462 Above high normal 140-400 (K/uL) Final MPV 12/28/2023 14:52:49 8.8 6.6-11.1 (fL) Final Nucleated erythrocytes/100 leukocytes [Ratio] in Blood by Automated count 12/28/2023 14:52:49 0 <=0 (/100 WBCs) Final Performing Location LABORATORY [facility] - [address] [place] [address]
--- OUTSIDE RECORDS SUMMARY | 2024-03-23 03:19 | External Medical Summary ---
Author Name Unknown Address Unknown Organization K1F:LABORATORY [facility] - [address] [place] [address] Laboratory Report Ordering Provider Test Date Status LILI MONTERO 12/31/2023 07:57:00 Final Observation Date Value Abnormality Reference (Units ) Status Phosphate 12/31/2023 07:57:00 2.7 2.5-4.8 (m g/dL) Final Performing Location LABORATORY [facility] - [address] [place] [address]
--- OUTSIDE RECORDS SUMMARY | 2024-03-23 03:19 | External Medical Summary ---
Author Name Unknown Address Unknown Organization K1F:LABORATORY [facility] - [address] [place] [address] Laboratory Report Ordering Provider Test Date Status LILI MONTERO 12/28/2023 14:52:49 Final Observation Date Value Abnormality Reference (Units ) Status Magnesium 12/28/2023 14:52:49 2.2 1.5-2.6 (m g/dL) Final Performing Location LABORATORY [facility] - [address] [place] [address]
--- OUTSIDE RECORDS SUMMARY | 2024-03-23 03:19 | External Medical Summary ---
Author Name Unknown Address Unknown Organization K1F:LABORATORY [facility] - [address] [place] [address] Laboratory Report Ordering Provider Test Date Status CELSAMARIAM 12/29/2023 01:12:00 Final Observation Date Value Abnormality Reference (Units) Status Source 12/29/2023 01:12:00 Liquid Final Clostridioides difficile toxin and [id number] strain DNA panel - Stool by MINDI with probe detection 12/29/2023 01:12:00 Negative. No C. difficile toxin B gene DNA detected by PCR (Amplified Probe). Negative Final Performing Location LABORATORY [facility] - [address] [place] [address]
--- OUTSIDE RECORDS SUMMARY | 2024-03-23 03:19 | External Medical Summary ---
Author Name Unknown Address Unknown Organization K1F:[facility] - [address] [place] [address] Laboratory Report Ordering Provider Test Date Status DORI ALLEN 12/28/2023 21:53:00 Final Observation Date Value Abnormality Reference (Units ) Status LDH 12/28/2023 21:53:00 201 <=250 (U/L ) Final Result may be falsely elevat ed due to hemolysis. Performing Location [facility] - [address] [place] [address]
--- OUTSIDE RECORDS SUMMARY | 2024-03-23 03:19 | External Medical Summary ---
Author Name Unknown Address Unknown Organization K1F:[facility] - [address] [place] [address] Laboratory Report Ordering Provider Test Date Status DORI ALLEN 12/29/2023 05:28:00 Final Observation Date Value Abnormality Reference (Units ) Status CRP, low-sensitivity 12/29/2023 05:28:00 16 Above high normal <=5 (mg/L) Final Performing Location [facility] - [address] [place] [address]
--- OUTSIDE RECORDS SUMMARY | 2024-03-23 03:19 | External Medical Summary ---
Author Name Unknown Address Unknown Organization K01[place] [place] [address] [place] [address] Laboratory Report Ordering Provider Test Date Status ALEJANDROVIOLETSHERIF 12/28/2023 21:53:00 Final Observation Date Value Abnormality Reference (Units ) Status Folic Acid 12/28/2023 21:53:00 11.5 >4.5 (ng/ mL) Final Performing Location [facility] [place] [address] [place] [address]
--- OUTSIDE RECORDS SUMMARY | 2024-03-23 03:19 | External Medical Summary ---
Author Name Unknown Address Unknown Organization K01:[facility] [place] - [address] [place] [address] [place] [address] Laboratory Report Ordering Provider Test Date Status DEREK ALLENJOSELITO 12/28/2023 21:53:00 Final Observation Date Value Abnormality Reference (Units ) Status Haptoglobin 12/28/2023 21:53:00 194 30-200 ( mg/dL) Final Performing Location [facility] [place] - [address] [place] [address]
--- OUTSIDE RECORDS SUMMARY | 2024-03-23 03:19 | External Medical Summary ---
Author Name Unknown Address Unknown Organization K1F:[facility] - [address] [place] [address] Laboratory Report Ordering Provider Test Date Status DEANNA CALVILLO 12/28/2023 14:52:49 Final Observation Date Value Abnormality Reference (Units ) Status Troponin T 12/28/2023 14:52:49 8 <=14 (ng/ L) Final Performing Location [facility] - [address] [place] [address]
--- OUTSIDE RECORDS SUMMARY | 2024-03-23 03:19 | External Medical Summary ---
Author Name Unknown Address Unknown Organization K1F:[facility] - [address] [place] [address] Laboratory Report Ordering Provider Test Date Status DEANNA CALVILLO 12/28/2023 14:52:49 Final Observation Date Value Abnormality Reference (Units ) Status Lactic Acid 12/28/2023 14:52:49 2.6 Above high normal 0.4-2.0 (mmol/L) Final Performing Location [facility] - [address] [place] [address]
--- OUTSIDE RECORDS SUMMARY | 2024-03-23 03:19 | External Medical Summary ---
Author Name Unknown Address Unknown Organization K1F:[facility] - [address] [place] [address] Laboratory Report Ordering Provider Test Date Status LILI MONTERO 12/28/2023 21:53:00 Final Observation Date Value Abnormality Reference (Units ) Status BUN 12/28/2023 21:53:00 13 6-20 (mg/dL) Final Creatinine 12/28/2023 21:53:00 0.9 0.5-1.0 (mg/dL) Final Glomerular filtration rate/1.73 sq M.predicted [Volume Rate/Area] in Serum, Plasma or Blood by Creatinine-based formula (CKD-EPI) 12/28/2023 21:53:00 76 >=60 (mL/min) Final eGFR is calculated based on the CKD-EPI 2020 equation Sodium 12/28/2023 21:53:00 143 135-146 (m mol/L) Final Results rechecked. Potassium 12/28/2023 21:53:00 2.9 Below low normal 3.5 -5.1 (mmol/L) Final Cl 12/28/2023 21:53:00 107 98-107 (mm ol/L) Final CO2 12/28/2023 21:53:00 29 22-32 (mmo l/L) Final Anion gap 12/28/2023 21:53:00 7 7-15 (mmol /L) Final Glucose 12/28/2023 21:53:00 70 70-120 (mg /dL) Final Calcium 12/28/2023 21:53:00 8.4 8.4-10.2 ( mg/dL) Final Performing Location [facility] - [address] [place] [address]
--- OUTSIDE RECORDS SUMMARY | 2024-03-23 03:19 | External Medical Summary ---
Author Name Unknown Address Unknown Organization K1F:[facility] - [facility] [address] [place] [address] Laboratory Report Ordering Provider Test Date Status LILI MONTERO 12/31/2023 07:57:00 Final Observation Date Value Abnormality Reference (Units ) Status WBC, Total 12/31/2023 07:57:00 8.65 4.00-10.80 (K/uL) Final RBC 12/31/2023 07:57:00 3.60 3.85-5.15 (M/uL) Final Hemoglobin 12/31/2023 07:57:00 11.2 Below low normal 12.0-15.3 (g/dL) Final HCT 12/31/2023 07:57:00 32.6 Below low normal 36.0-45.2 (%) Final MCV 12/31/2023 07:57:00 90.6 81.5-97.5 (fL) Final MCH 12/31/2023 07:57:00 31.1 27.0-34.0 (pg) Final MCHC 12/31/2023 07:57:00 34.4 32.0-36.0 (g/dL) Final RDW 12/31/2023 07:57:00 13.5 11.5-15.5 (%) Final Platelets 12/31/2023 07:57:00 339 140-400 (K/uL) Final MPV 12/31/2023 07:57:00 8.4 6.6-11.1 (fL) Final Nucleated erythrocytes/100 leukocytes [Ratio] in Blood by Automated count 12/31/2023 07:57:00 0 <=0 (/100 WBCs) Final Performing Location [facility] - [address] [place] [address]
--- OUTSIDE RECORDS SUMMARY | 2024-03-23 03:19 | External Medical Summary ---
Author Name Unknown Address Unknown Organization K1F:[facility] - [address] [place] [address] Laboratory Report Ordering Provider Test Date Status LILI MONTERO 12/29/2023 05:28:00 Final Observation Date Value Abnormality Reference (Units ) Status Phosphate 12/29/2023 05:28:00 3.8 2.5-4.8 (m g/dL) Final Performing Location [facility] - [address] [place] [address]
--- OUTSIDE RECORDS SUMMARY | 2024-03-23 03:19 | External Medical Summary ---
Author Name Unknown Address Unknown Organization K1F:[facility] - [address] [place] [address] Laboratory Report Ordering Provider Test Date Status LILI MONTERO 12/30/2023 05:21:00 Final Observation Date Value Abnormality Reference (Units ) Status Magnesium 12/30/2023 05:21:00 2.1 1.5-2.6 (m g/dL) Final Performing Location [facility] - [address] [place] [address]
--- OUTSIDE RECORDS SUMMARY | 2024-03-23 03:20 | External Medical Summary | Continuity of Care Document ---
Author Name Unknown Organization [facility] er, Address [address] [place] [address] Phone [phone] Problems Active Problems Provider Date Moderate recurrent [...] Description Comments Sex Unknown Tobacco Use Reviewed: 11/09/23 Never Smoked Cigarette s Tobacco Use Reviewed: 11/09/23 Never Smoked Cigars Tobacco Use Reviewed: 11/09/23 Never Smoked A Pipe Smoking Status Reviewed: 11/09/23 Never Smoked A Pipe Smokeless Tobacco 11/09/2023 Never Used Smokeless To bacco ETOH Use Rarely consumes alcohol Recreational Drug Use Denies Drug Use Allergies and adverse reactions Description No Known Drug Allergies Medications Active Medications SIG Qnty Indications Order ing Provider Date Hkuprnq12gx Tablets 1 tablet by mouth three times a day. ongoing therapy. 30tabs F90.0 Laura Tse MD, PhD 4 Rexulti0.5mg Tablets 1 by mouth daily. 30tabs F33.1 Laura Tse MD, PhD 4 Levothyroxine Bzijvh02cfs Tablets 1 by mouth daily on an empty stomach. 30tabs Laura Tse MD, PhD [address] 1 by mouth daily. Take on empty stomach 30 minutes prior to eating. 30caps K21.9 Laura Tse MD, PhD 4 Desvenlafaxine Succinate UU270we Tablets ER 24HR Take One Tablet By Mouth Every Day With Food 30tabs F41.1 Laura Tse MD, PhD 3 Prochlorperazine Blkqkly0xt Tablets 1 by mouth every 8 hours as needed for nausea. 10tabs Laura Tse MD, PhD 3 Vitamin D (Ergocalciferol)1.25mg (78989 Ut) Capsules Take One Capsule By Mouth Once Weekly 12caps Laura Tse MD, PhD 3 Rwpqpb-P97-955um Tablets 1 by mouth daily. 90tabs Laura Tse MD, PhD 3 Kaeulqjtkh600bd Capsules take 1 capsule by mouth 2 hours before bedtime. 30caps G25.81 Laura Tse MD, PhD 3 Quetiapine Xylmsylw126sw Tablets take one (1) tablet by mouth at bedtime 30tabs Laura Tse MD, PhD 1 Igmiduc433myg Capsules take 1 capsule by mouth daily 90caps K59.00 Laura Tse MD, PhD 1 3ML Luer Lock Safety Syringes/3ML/25G X 1"25G X 1" 3 ML Misc use to administer b12 12units Laura Tse MD, PhD 0 Uwjicmvddsyunx6540nhe/ ML Solution inject 1ml (1000mcg) intramuscularly every week x 4 weeks, then once monthly. 30ml Laura Tse MD, PhD 0 Nhdjcedlvx52ho Tablets 1 by mouth every day at bedtime. 30tabs K21.9 Laura Tse MD, PhD 0 Zdhomomgtz0gf Tablets 1 by mouth 2 times a day. 60tabs Riccardo Nickerson, 0 History Medications Glybsiaj693zo Capsules 1 by mouth twice a day x 5 days with food 10caps R30.0 Laura Tse MD, PhD 11/01/2023 - 11/06/2023 Cnsluau2ga Tablets 1 by mouth at bedtime. 30tabs F51.05 Laura Tse MD, PhD 11/01/2023 - 11/09/2023 Focalin2.5mg Tablets 1 by mouth twice daily. Initial therapy. 14tabs F90.0 Laura Tse MD, PhD 09/06/2023 - 09/14/2023 Buspirone JYL88ag Tablets 1 by mouth twice a day [...] To 1000 mcgInjection Laura moody MD, PhD 10/14/2016 Injection Methylprednisolone Acetate 20 [...] Injection Methylprednisolone Acetate 20 MGInjection Levi Petty , DO 07/08/2014 Immunizations CPT Code Status Date Vaccine Reaction Lot # [id number] Given 01/13/2021 TB Intradermal Test 0 mm - negative, read @ 4:32pm [id number] 12047 Given 04/17/2019 TB Intradermal Test 0.0MM read by Salavdor Bonilla LPN at 11:41AM [id number] 99601 Given 08/04/2015 Tdap (Tetanus, diphtheria & acel. pertussis) Adacel or Boostrix 59597 Given 09/02/2014 TB Intradermal Test 0 mm reaction. Negative read by RF on 09/05/14 at 11:36am. [id number] 85278 Given 06/20/2007 Tdap (Tetanus, diphtheria & acel. pertussis) Adacel or Boostrix 27103 Given 01/24/2005 Td (Tetanus & D iphtheria) Tenivac 95886 Refused 09/06/2023 Sarscov2 Vaccin e 50 mcg/0.5 ML For Im Use 12 Yrs And Older 19736 Refused 04/11/2022 Influenza Virus Vaccine, Quadrivalent, Split Virus, Im Use 6-35 57185 Refused 09/09/2021 Influenza Virus Vaccine, Quadrivalent (Cciiv4), Derived From Cell 74061 Refused 09/09/2021 Moderna Sars-Co v-2 (Cov-19) vacc,100 mcg/ 0.5 mL 12Y+EMR Doc Only 07498 Refused 05/27/2019 Influenza Virus Vaccine, Quadrivalent, Im Use 54475 Refused 05/31/2018 Influenza Virus Vaccine, Quadrivalent, Im Use 41433 Refused 08/18/2017 Tdap (Tetanus, diphtheria & acel. pertussis) Adacel or Boostrix 05372 Refused 07/20/2017 Influenza Virus Vaccine, Quadrivalent, Im Use 00986 Refused 07/06/2016 Influenza Virus Vaccine, Quadrivalent, Im Use 96531 Refused 10/06/2015 Influenza Virus Vaccine, Quadrivalent, Im Use 22077 Refused 09/09/2014 Influenza Virus Vaccine, Quadrivalent, Im Use Vital Signs Date Vital Result Comment 11/09/2023 6:47pm BP Systolic 110 mmHg BP Diastolic 60 mmHg Body Temperature 97.7 F Heart Rate 78 /min Respiratory Rate 16 /min 11/01/2023 2:29pm BP Systolic 120 mmHg BP Diastolic 70 mmHg Body Temperature 98.2 F Heart Rate 76 /min Respiratory Rate 16 /min Results Test Acquired Date Facility Test Result H/L Range N ote BMP 11/16/2023 [facility]. [address] [place], [place] [id number] [phone] Glucose 119 mg/dL High 70-110 BUN 14 mg/dL 6-25 Creatinine 0.8 mg/dL 0.5-1.2 Sodium 140 mEq/L 135-145 Potassium 3.9 mEq/L 3.5-5.0 Chloride 101 mEq/L 95-107 Co-2 24 mEq/L 24-31 Calcium 9.6 mg/dL 8.5-10.6 GFR 82 ML/MIN/1.73SQM >60 Comp. Met 11/09/2023 [facility]. [address] [place], [place] [id number] [phone] Glucose 113 mg/dL High 70-110 BUN 14 [...] 2.7 g/dL 2.0-3.4 GFR 95 ML/MIN/1.73SQM >60 Hba1c 11/09/2023 [facility]. [address] [place] [address] [phone] A1c 5.40 % 4.70-6.50 1 CBC W/Diff 11/09/2023 [facility]. [address] [place] [address] [phone] WBC 8.2 10^3/M3 3.1-9.2 RBC 4.64 10^6/M3 3.70-5.50 HGB 14.7 GR/DL 11.5-16.1 HCT 42.7 % 34.5-47.8 MCV 92.1 CUMICR 82.6-95.8 MCH 31.8 PICOGR 27.9-32.9 MCHC 34.5 % 32.6-35.4 RDW 13.6 % 11.4-14.6 PLT 530 10^3/M3 High 140-350 MPV 7.5 CUMICR 7.0-10.6 %Neut 51.3 % 40.0-75.0 %Lymph 38.4 % 17.0-45.0 %Cassia 7.7 % 1.0-11.0 %Eos 2.0 % 0.0-6.0 %Baso 0.6 % 0.0-2.0 #Neut 4.2 10^3/M3 1.5-8.0 #Lymph 3.1 10^3/M3 0.8-3.2 #Cassia 0.6 10^3/M3 0.0-0.8 #Eos 0.2 10^3/m3 0.0-0.4 #Baso 0.0 10^3/m3 0.0-0.2 Urinalysis 11/01/2023 [facility] [address] [place] [address] [phone] Color LIGHT-ORANGE Abnormal Appearance TURBID Abnormal Clear [...] /HPF Abnormal Not Present Urine Culture 11/01/2023 [facility] [address] [place] [address] [phone] Urine Source URINE Total Col Count >100,000 COL/CC Urine Isolate#1 11/01/2023 [facility] [address] [place] [address] [phone] Isolate #1 Escherichia coli 2 Amox/K Clav <=8/4 S Ampicillin <=8 S Aztreonam <=4 S Cefazolin <=2 S Cefepime <=2 S Ceftriaxone <=1 S Ciprofloxacin <=0.25 S Gentamicin <=2 S Nitrofurantoin <=32 S Tetracycline <=4 S Tobramycin <=2 S Trimeth/Sulfa <=2/38 S Meropenem <=1 S Laboratory test finding 11/01/2023 [facility] [address] [place] [address] [phone] TSH 0.96 uIU/mL 0.50-6.00 FRT4 0.79 ng/dL 0.75-1.54 Laboratory test finding 09/06/2023 [facility] [address] [place] [address] [phone] FRT4 0.51 ng/dL Low 0.75-1.54 TSH 1.46 uIU/mL 0.50-6.00 Vitd-25Oh 19 ng/mL Low 30-100 VB12 169 pg/mL Low 230-1050 CBC W/Diff 09/06/2023 [facility] [address] [place] [address] [phone] WBC 6.8 10^3/M3 3.1-9.2 RBC 4.19 10^6/M3 3.70-5.50 HGB 13.1 GR/DL 11.5-16.1 HCT 38.2 % 34.5-47.8 MCV 91.0 CUMICR 82.6-95.8 MCH 31.3 PICOGR 27.9-32.9 MCHC 34.4 % 32.6-35.4 RDW 13.7 % 11.4-14.6 PLT 464 10^3/M3 High 140-350 MPV 7.1 CUMICR 7.0-10.6 %Neut 44.1 % 40.0-75.0 %Lymph 44.7 % 17.0-45.0 %Cassia 7.8 % 1.0-11.0 %Eos 2.3 % 0.0-6.0 %Baso 1.1 % 0.0-2.0 #Neut 3.0 10^3/M3 1.5-8.0 #Lymph 3.1 10^3/M3 0.8-3.2 #Cassia 0.5 10^3/M3 0.0-0.8 #Eos 0.2 10^3/m3 0.0-0.4 #Baso 0.1 10^3/m3 0.0-0.2 Comp. Met 09/06/2023 [facility] [address] [place] [address] [phone] Glucose 90 mg/dL 70-110 BUN 12 mg/dL [...] g/dL 2.0-3.4 GFR 95 ML/MIN/1.73SQM >60 1 MEAN GLUCOSE IN mg/d L/A1c% POOR CONTROL FAIR CONTROL GOOD CONTROL EXCELLENT CONTROL 360-14 210-9 180-8 120-6 330-13 150-7 90-5 300-12 270-11 240-10 2 Escherichia coli Procedures Date Code Description Status 11/16/2023 74408 Venipuncture Routine Complet ed 11/09/2023 G2211 Continuation of care e/m vis it add on Completed 11/09/2023 03421 Venipuncture Routine Complet ed 11/01/2023 G2211 Continuation of care e/m vis it add on Completed 11/01/2023 69599 Venipuncture Routine Complet ed 09/06/2023 G9920 Scrning Perf And Negative Co mpleted 09/06/2023 G2211 Continuation of care e/m vis it add on Completed 09/06/2023 04311 Venipuncture Routine Complet ed 03/02/2023 [id number] Colonoscopy Completed 04/22/2020 [id number] Mammogram Completed Medical Devices Description No Information Available Encounters Type Date Location Provider Dx Diagnosis Office Visit 11/09/2023 7:15p [facility] PA-C H53.8 Other visual disturbances 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, predom inattentive type R11.2 Nausea with vomiting , unspecified K21.9 Gastro-esophageal re flux disease without esophagitis R10.11 Right upper quadrant pain R07.89 Other chest pain F41.1 Generalized anxiety disorder Office Visit 11/01/2023 2:30p [facility] sin[facility] PA-C F41.1 Generalized anxiety disorder F33.1 Major depressive dis order, recurrent, moderate 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, 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 disorder E03.9 Hypothyroidism, unsp ecified R30.0 Dysuria D75.838 Other thrombocytosis Office Visit 09/06/2023 10:00a [facility] Kokisonali GrafPAVEL F41.1 Generalized anxiety disorder F33.1 Major depressive dis order, recurrent, moderate 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, predom inattentive type E03.9 Hypothyroidism, unsp ecified E55.9 Vitamin D deficiency , unspecified E53.9 Vitamin B deficiency , unspecified K21.9 Gastro-esophageal re flux disease without esophagitis G47.00 Insomnia, unspecifie d Z60.8 Other problems relat ed to social environment Z79.899 Other skilled nursing (cur rent) drug therapy Assessments Date Code Description Provider 11/16/2023 F51.05 Insomnia due to other mental disorder Lab - [facility] 11/16/2023 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, predominantly inattentive type Lab - [facility] 11/09/2023 H53.8 Other visual disturbances Me scotsonali VillegasALAN starrC 11/09/2023 F51.05 Insomnia due to other mental disorder ALAN SaldivarC 11/09/2023 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, predominantly inat ROLAN Saldivar-C 11/09/2023 R11.2 Nausea with vomiting, unspec ified ROLAN Saldivar-C 11/09/2023 K21.9 Gastro-esophagea l reflux disease without esophagitis ROLAN Saldivar-C 11/09/2023 R10.11 Right upper quadrant pain Me scot VillegasALAN starrC 11/09/2023 R07.89 Other chest pain ALAN AbrahamC 11/09/2023 F41.1 Generalized anxiety disorder Koki ROLAN Whitten-C 11/01/2023 F41.1 Generalized anxiety disorder Koki ROLAN Whitten-C 11/01/2023 F33.1 Major depressive disorder, recurrent, moderate ALAN SaldivarC 11/01/2023 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, predominantly inat Koki ROLAN Whitten-C 11/01/2023 F51.05 Insomnia due to other mental disorder ROLAN Saldivar-C 11/01/2023 E03.9 Hypothyroidism, unspecified Koki Whitten, [facility] 11/01/2023 R30.0 Dysuria Koki Whitten, [facility] 11/01/2023 D75.838 Other thrombocytosis [place], [place] 09/06/2023 F41.1 Generalized anxiety disorder Koki Whitten, [facility] 09/06/2023 F33.1 Major depressive disorder, recurrent, moderate [place]oki [place], [place] 09/06/2023 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, predominantly inat [place]oki [place], [place] 09/06/2023 E03.9 Hypothyroidism, unspecified Koki Whitten, [place]- 09/06/2023 E55.9 Vitamin D deficiency, unspec ified Koki Whitten, [facility] 09/06/2023 E53.9 Vitamin B deficiency, unspec ified [place]oki Whitten, [place] 09/06/2023 K21.9 Gastro-esophagea l reflux disease without esophagitis Koki Whitten, [facility] 09/06/2023 G47.00 Insomnia, unspecified Mona Whitten, [facility] 09/06/2023 Z60.8 Other problems related to so cial environment Koki Whitten PA-C 09/06/2023 Z79.899 Other skilled nursing (current) dr shakira Whitten PA-C Plan of Treatment Future Appointment(s):* 12/04/2023 4:30 pm - Koki Whitten PA-C at [facility] 11/09/2023 - Koki Whitten PA-C* H53.8 Other visual disturbances* Follow up:* Dr. Cervantes tomorrow or early next week. * F51.05 Insomnia due to other mental disorder* Recommendations:* Stop Lunesta. Restart Quetiapine. * F90.0 Attention-deficit hyperactivity disorder, predominantly inat* Recommendations:* Get the branded Ritalin from [facility]. * R11.2 Nausea with vomiting, unspecified* Recommendations:* Continue Nexium in the morning. Start Famotidine at night. * K21.9 Gastro-esophageal reflux disease without esophagitis * R10.11 Right upper quadrant pain* New Xrays:* Ultrasound Abdomen Limited, Ordered: 11/09/23 * R07.89 Other chest pain * F41.1 Generalized anxiety disorder Functional Status Description No Information Available Mental Status Description No Information Available Referrals Refer to Reason for Referral Status Appt Art e Hematology/Oncology [facility] Scheduled 12/[address] [place] [address] [phone]
--- OUTSIDE RECORDS SUMMARY | 2024-03-23 03:20 | External Medical Summary ---
Author Name Unknown Address Unknown Organization K1C:[facility] [address] [place] [address] Laboratory Report Ordering Provider Test Date Status MAMI BOSS 11/16/2023 16:27 Final Observation Date Value Abnormality Reference (Units ) Status Glucose 11/17/2023 10:50 119 Above high normal 70-11 0 (MG/DL) Final BUN 11/17/2023 10:50 14 6-25 (MG/DL) Final Creatinine 11/17/2023 10:50 0.8 0.5-1.2 (MG/ DL) Final Sodium 11/17/2023 10:50 140 135-145 (MEQ/ L) Final Potassium 11/17/2023 10:50 3.9 3.5-5.0 (MEQ/ L) Final Cl 11/17/2023 10:50 101 95-107 (MEQ/L ) Final CO2 11/17/2023 10:50 24 24-31 (MEQ/L) Final Calcium 11/17/2023 10:50 9.6 8.5-10.6 (MG/ DL) Final GFR (estimated) 11/17/2023 10:50 82 >60 (ML /MIN/1.73 SQM) Final Performing Location [facility] [address] [place] [address]
--- OUTSIDE RECORDS SUMMARY | 2024-03-23 03:20 | External Medical Summary ---
Author Name Unknown Address Unknown Organization K1C:[facility] [address] [place] [address] Laboratory Report Ordering Provider Test Date Status MAMI BOSS 11/09/2023 19:33 Final Observation Date Value Abnormality Reference (Units ) Status HbA1C 11/10/2023 11:19 5.40 4.70-6.50 (%) Final MEAN GLUCOSE IN mg/dL/A1c%<b r/> POOR CONTROL FAIR CONTROL GOOD CONTROL EXCELLENT CONTROL
360-14 210-9 180-8 120-6
330-13 150-7 90-5
300-12
270-11
240-10 Performing Location [facility] [address] [place] [address]
--- OUTSIDE RECORDS SUMMARY | 2024-03-23 03:20 | External Medical Summary ---
Author Name Unknown Address Unknown Organization [facility]:[address] [place] [address] Laboratory Report Ordering Provider Test Date Status MAMI BOSS 11/09/2023 19:33 Final Observation Date Value Abnormality Reference (Units ) Status Glucose 11/10/2023 09:46 113 Above high normal 70-110 (MG/DL) Final BUN 11/10/2023 09:46 14 6-25 (MG/DL) Final Creatinine 11/10/2023 09:46 0.7 0.5-1.2 (MG/DL) Final Sodium 11/10/2023 09:46 142 135-145 (MEQ/L) Final Potassium 11/10/2023 09:46 3.3 Below low normal 3.5-5.0 (MEQ/L) Final Cl 11/10/2023 09:46 103 95-107 (MEQ/L) Final CO2 11/10/2023 09:46 26 24-31 (MEQ/L) Final Alk Phos 11/10/2023 09:46 104 43-122 (IU/L) Final ALT (Alanine aminotransferase) 11/10/2023 09:46 11 10-40 (IU/L) Final AST (Aspartate aminotransferase) 11/10/2023 09:46 15 3-42 (IU/L) Final Bilirubin, Total 11/10/2023 09:46 0.4 0.1-1.3 (MG/DL) Final Calcium 11/10/2023 09:46 9.6 8.5-10.6 (MG/DL) Final Protein 11/10/2023 09:46 7.2 5.8-8.0 (G/DL) Final Albumin 11/10/2023 09:46 4.5 3.0-5.2 (G/DL) Final GLOBULIN 11/10/2023 09:46 2.7 2.0-3.4 (G/DL) Final GFR (estimated) 11/10/2023 09:46 95 >60 (ML/MIN/1.73 SQM) Final Performing Location [facility] [address] [place] [address]
--- OUTSIDE RECORDS SUMMARY | 2024-03-23 03:20 | External Medical Summary | Summary of Care ---
Author Name Unknown Organization [facility] Address [address] [facility] [place] [address] Phone [phone] Care Team Providers Care Waiter/Waitress Buffet Name Role Phone Laura Tse MD Primary Care Provider + Encounter Details Date Type Department Care Team (Late st Contact Info) Description 11/14/2023 Orders Only PATIENT PORTAL DO NOT DELETE THIS DEPT USED BY ROLAN SEGOVIA [id number] Allergies Active Allergy Reactions Criticality Noted Date Comments Erythromycin 01/09/2002 GI UPSET documented as of this encounter (statuses as of 11/14/2023) Medications Medication Sig Dispensed Refills Start Date End Date Status clonazePAM (KLONOPIN) 1 MG Tablet Take 1 Tablet by mouth in the morning and 1 Tablet before bedtime. 0 01/25/2019 Active Linzess 290 MCG Oral Capsule Take 290 mcg by mouth daily before breakfast. 0 07/17/2020 Active Famotidine 40 MG Oral Tablet (PEPCID) Take 40 mg by mouth daily. 0 Active Ondansetron 4 MG Oral Tablet Disintegrating Place 1 Tablet on tongue every 8 hours as needed for Nausea. dissolve on tongue. 20 Tablet 0 07/19/2021 Active Potassium Chloride ER 20 MEQ Oral Tablet Extended Release Take by mouth 20 mEq 2 times a day . 0 Active Docusate Sodium 50 MG Oral Capsule (Colace) Take by mouth daily . 0 Active Aspirin 81 MG Oral Capsule Take by mouth 1 Capsule daily . 0 Active traZODone HCl 50 MG Oral Tablet (Desyrel) Take by mouth 1 Tablet at bedtime as needed, may repeat once for Sleep. 10 Tablet 0 01/20/2022 Active buPROPion HCl ER (SR) 100 MG Oral Tablet Extended Release 12 Hour (Wellbutrin SR) Take by mouth 1 Tablet in the morning. Do not start before January 21, 2022. 5 Tablet 0 01/21/2022 Active QUEtiapine Fumarate 200 MG Oral Tablet (SEROquel) Take by mouth 1 Tablet before bedtime. 5 Tablet 0 01/20/2022 Active Magnesium Oxide 400 MG Oral Capsule Take by mouth 1 Capsule in the morning. 30 Capsule 5 05/25/2022 Active Additional Information Patient not taking.Reported on 02/22/2023 Riboflavin 400 MG Oral Tablet Take by mouth 1 Tablet in the morning. 30 Tablet 5 05/25/2022 Active Additional Information Patient not taking.Reported on 02/22/2023 Desvenlafaxine Succinate ER 100 MG Oral Tablet Extended Release 24 Hour Take 1 Tablet by mouth in the morning. 0 Active Gabapentin 300 MG Oral Capsule (Neurontin) Take 1 Capsule by mouth in the morning and 1 Capsule at noon and 1 Capsule before bedtime. 0 Active Vitron-C 65-125 MG Oral Tablet (Iron-Vitamin C 65-125 mg per tab) Take 1 Tablet by mouth in the morning. 0 Active Methylphenidate HCl 20 MG Oral Tablet (Ritalin) Take 1 Tablet by mouth in the morning and 1 Tablet before bedtime. 0 Active documented as of this encounter (statuses as of 11/14/2023) Active Problems Problem Noted Date Diagnosed Date Advanced directives, counseling/discussion 05/26 Overview: No, Advance Directive brochure offered , patient declined. Medication exposure during first trimester of pr egnancy 05/04/2015 AMA (advanced maternal age) multigravida 35+ SABA I (cervical intraepithelial neoplasia I) Overview: Chronic daily headache 05/30/2013 Migraine without aura 05/30/2013 Cervicalgia 05/30/2013 Abnormal Papanicolaou smear of vagina and vagina l HPV Overview: ICD-10 update of inactive term Fibromyalgia Dysthymic disorder Other vitamin B12 deficiency anemia Esophageal reflux Major depressive disorder Overview: ICD-10 update of inactive term Syncope documented as of this encounter (statuses as of 11/14/2023) Resolved Problems Problem Noted Date Diagnosed Date Resolved Date Encounter for supervision of other normal 02/27/2003 11/14/2003 Overview: ICD-10 update of inactive term Constipation 11/14/2003 Overview: ICD-10 update of inactive term URIN TRACT INFECTION NOS 08/2004 documented as of this encounter (statuses as of 11/14/2023) Immunizations Name Administration Dates Next Due TD, [...] on file documented as of this encounter Plan of Treatment Scheduled Procedures Name Priority Associated Diagnoses Date/Ti me COLONOSCOPY FLEXIBLE PROXIMA L DIAGNOSTIC Recall History of colonic polyps Health Maintenance Due Date Last Done Comments Hepatitis B (1 of 3 - 19+ 3-dose series) 1995 HPV/Co-Test 2006 Depression Screening 02/18/2016 02/17/2015 Cervical Cancer Screening 05/26/2019 Pap Smear 05/26/2019 05/26/2016, 04/04, 04/15/2014, Additional history exists Mammogram 04/22/2021 04/22/2020, 08/04, 07/24/2018, Additional history exists COVID-19 Vaccine (2022- season) 2023 Influenza Vaccine (FLU shot) (#1) 2023 DTaP,Tdap,and Td Vaccines (3 - Td or Tdap) 08/04/2025 08/04/2015, 06/20/2007, 01/24/2005 Lipid Panel 01/15/2027 01/15/2022 COLONOSCOPY-EVERY 5 YRS AGES 18-100 03/02/2028 03/02/2023, 03/02/2023 Colonoscopy Discontinued 03/02/2023, 03/02/2023 Colorectal Cancer Screening Discontinued Cologuard Discontinued Fecal Occult Blood Test Discontinued GARDASIL-HPV IMMUNIZATION SERIES Aged Out No longer eligible based on patient's age to complete this topic MENINGOCOCCAL (MENACTRA/MENVEO) Aged Out No longer eligible based on patient's age to complete this topic Pneumococcal Vaccine: Pediatrics (0 to 5 Years) and At-Risk Patients (6 to 64 Years) Aged Out No longer eligible based on patient's age to complete this topic Sigmoidoscopy Discontinued documented as of this encounter Medical Devices Not on filedocumented as of this encounter Advance Directives Latest Code Status on File Code Status Date Activated Date Inactivated Comments Full Code 01/16/2022 1:36 AM 01/20/2022 2:02 PM This order reflects the patients wishes and were consensually agreed upon. Question Answer Comments Discussion of Advance Directives occurred with: Patient Does the patient have a Living Will? No Does the patient have Health Care Power of Regional Telecommunications Specialist? No Code Status History Code Status Date Activated Date Inactivated Comments Full Code 07/19/2021 4:00 PM 07/19/2021 9:05 PM Thi s order reflects the patients wishes and were consensually agreed upon. Full Code 07/19/2021 3:53 PM 07/19/2021 4:00 PM Thi s order reflects the patients wishes and were consensually agreed upon. Full Code 07/19/2021 12:51 PM 07/19/2021 3:53 PM Th is order reflects the patients wishes and were consensually agreed upon. Full Code 10/03/2015 9:20 AM 10/05/2015 9:03 PM This o rder reflects the patients wishes and were consensually agreed upon. Care Teams Waiter/Waitress Buffet Relationship Specialty Start Date End Date Laura Tse MD [address] [facility] [place] [id number] PCP - General Family Medicine 10/20/16 documented as of this encounter
--- OUTSIDE RECORDS SUMMARY | 2024-03-23 03:20 | External Medical Summary | Continuity of Care Document ---
Author Name Unknown Organization [facility] Address [address] [facility], [place] [address] Phone [phone] Problems Active Problems Provider Date Moderate recurrent major depression Laura dumont MD, PhD Onset: 10/23/2018 Attention deficit hyperactiv ity disorder, predominantly inattentive type Laura Tes MD, PhD Onset: 10/23/2018 Generalized anxiety disorder [...] SIG Qnty Indications Order ing Provider Date Djrxtkg27ba Tablets 1 tablet by mouth three times a day. ongoing therapy. 30tabs F90.0 Laura Tse MD, PhD 4 Rexulti0.5mg Tablets 1 by mouth daily. 30tabs F33.1 Laura Tse MD, PhD 4 Levothyroxine Lvbenp61lci Tablets 1 by mouth daily on an empty stomach. 30tabs Laura Tse MD, PhD [address] 1 by mouth daily. Take on empty stomach 30 minutes prior to eating. 30caps K21.9 Laura Tse MD, PhD 4 Desvenlafaxine Succinate TQ333oh Tablets ER 24HR Take One Tablet By Mouth Every Day With Food 30tabs F41.1 Laura Tse MD, PhD 3 Prochlorperazine Imkozrd4bz Tablets 1 by mouth every 8 hours as needed for nausea. 10tabs Laura Tse MD, PhD 3 Vitamin D (Ergocalciferol)1.25mg (91782 Ut) Capsules Take One Capsule By Mouth Once Weekly 12caps Laura Tse MD, PhD 3 Biihuf-V39-837wb Tablets 1 by mouth daily. 90tabs Laura Tse MD, PhD 3 Vshdlmgpir964wz Capsules take 1 capsule by mouth 2 hours before bedtime. 30caps G25.81 Laura Tse MD, PhD 3 Quetiapine Jdgnxdmw808kx Tablets take one (1) tablet by mouth at bedtime 30tabs Laura Tse MD, PhD 1 Pndakoj244bwz Capsules take 1 capsule by mouth daily 90caps K59.00 Laura Tse MD, PhD 1 3ML Luer Lock Safety Syringes/3ML/25G X 1"25G X 1" 3 ML Misc use to administer b12 12units Laura Tse MD, PhD 0 Tcnmarskqhwfgq3798nvh/ ML Solution inject 1ml (1000mcg) intramuscularly every week x 4 weeks, then once monthly. 30ml Laura Tse MD, PhD 0 Qnrepeosxn00zx Tablets 1 by mouth every day at bedtime. 30tabs K21.9 Laura Tse MD, PhD 0 Ketctwupmf7ti Tablets 1 by mouth 2 times a day. 60tabs Riccardo Bolivar Liya, 0 History Medications Xmactshm554yq Capsules 1 by mouth twice a day x 5 days with food 10caps R30.0 Laura Tse MD, PhD 11/01/2023 - 11/06/2023 Oslzvfj3gw Tablets 1 by mouth at bedtime. 30tabs F51.05 Laura Tse MD, PhD 11/01/2023 - 11/09/2023 Focalin2.5mg Tablets 1 by mouth twice daily. Initial therapy. 14tabs F90.0 Laura Tse MD, PhD 09/06/2023 - 09/14/2023 Buspirone BPJ15mr Tablets 1 by mouth twice a day 60tabs Laura Tse MD, PhD 09/06/2023 - 11/01/2023 Medications Administered in Office Medication SIG Qnty Indications Ordering Provider Date Injection Methylprednisolone Acetate 20 MGInjection ROLAN Saldivar 06/20/2022 Rocephin Inj 250 MGInjection Janelle Whitten PA-C 10/07/2019 Injection Methylprednisolone Acetate 20 MGInjection Luara east MD, PhD 06/13/2018 Injection Methylprednisolone Acetate [...] Code Status Date Vaccine Reaction Lot # [id number] Given 01/13/2021 TB Intradermal Test 0 mm - negative, read @ 4:32pm [id number] 55532 Given 04/17/2019 TB Intradermal Test 0.0MM read by Salvador Bonilla LPN at 11:41AM [id number] 10571 Given 08/04/2015 Tdap (Tetanus, diphtheria & acel. pertussis) Adacel or Boostrix 64182 Given 09/02/2014 TB Intradermal Test 0 mm reaction. Negative read by RF on 09/05/14 at 11:36am. [id number] 22658 Given 06/20/2007 Tdap (Tetanus, diphtheria & acel. pertussis) Adacel or Boostrix 47680 Given 01/24/2005 Td (Tetanus & D iphtheria) Teniva [id number] Refused 09/06/2023 Sarscov2 Vaccin e 50 mcg/0.5 ML For Im Use 12 Yrs And Older 93532 Refused 04/11/2022 Influenza Virus Vaccine, Quadrivalent, Split Virus, Im Use 6-35 25689 Refused 09/09/2021 Influenza Virus Vaccine, Quadrivalent (Cciiv4), Derived From Cell 70879 Refused 09/09/2021 Moderna Sars-Co v-2 (Cov-19) vacc,100 mcg/ 0.5 mL 12Y+EMR Doc Only 90784 Refused 05/27/2019 Influenza Virus Vaccine, Quadrivalent, Im Use 48032 Refused 05/31/2018 Influenza Virus Vaccine, Quadrivalent, Im Use 04718 Refused 08/18/2017 Tdap (Tetanus, diphtheria & acel. pertussis) Adacel or Boostrix 06866 Refused 07/20/2017 Influenza Virus Vaccine, Quadrivalent, Im Use 41227 Refused 07/06/2016 Influenza Virus Vaccine, Quadrivalent, Im Use 04754 Refused 10/06/2015 Influenza Virus Vaccine, Quadrivalent, Im Use 55570 Refused 09/09/2014 Influenza Virus Vaccine, Quadrivalent, Im [...] Facility Test Result H/L Range N ote Comp. Met 11/09/2023 [facility] [address] [place] [address] [phone] Glucose 113 mg/dL High 70-110 BUN 14 [...] 2.0-3.4 GFR 95 ML/MIN/1.73SQM >60 Hba1c 11/09/2023 [facility] [address] [place] [address] [phone] A1c 5.40 % 4.70-6.50 1 CBC W/Diff 11/09/2023 [facility] [address] [place] [address] [phone] WBC 8.2 10^3/M3 3.1-9.2 RBC 4.64 10^6/M3 3.70-5.50 HGB 14.7 GR/DL 11.5-16.1 HCT 42.7 % 34.5-47.8 MCV 92.1 CUMICR 82.6-95.8 MCH 31.8 PICOGR 27.9-32.9 MCHC 34.5 % 32.6-35.4 RDW 13.6 % 11.4-14.6 PLT 530 10^3/M3 High 140-350 MPV 7.5 CUMICR 7.0-10.6 %Neut 51.3 % 40.0-75.0 %Lymph 38.4 % 17.0-45.0 %[place] 7.7 % 1.0-11.0 %Eos 2.0 % 0.0-6.0 %Baso 0.6 % 0.0-2.0 #Neut 4.2 10^3/M3 1.5-8.0 #Lymph 3.1 10^3/M3 0.8-3.2 #[place] 0.6 10^3/M3 0.0-0.8 #Eos 0.2 10^3/m3 0.0-0.4 #Baso 0.0 10^3/m3 0.0-0.2 Urinalysis 11/01/2023 [facility] [address] [place] [address] [phone] Color LIGHT-ORANGE Abnormal Appearance TURBID Abnormal Clear [...] /HPF Abnormal Not Present Urine Culture 11/01/2023 [facility] [address] [place] [address] [phone] Urine Source URINE Total Col Count >100,000 COL/CC Urine Isolate#1 11/01/2023 [facility] [address] [place] [address] [phone] Isolate #1 Escherichia coli 2 Amox/K Clav <=8/4 S Ampicillin <=8 S Aztreonam <=4 S Cefazolin <=2 S Cefepime <=2 S Ceftriaxone <=1 S Ciprofloxacin <=0.25 S Gentamicin <=2 S Nitrofurantoin <=32 S Tetracycline <=4 S Tobramycin <=2 S Trimeth/Sulfa <=2/38 S Meropenem <=1 S Laboratory test finding 11/01/2023 [facility] [address] [place] [address] [phone] TSH 0.96 uIU/mL 0.50-6.00 FRT4 0.79 ng/dL 0.75-1.54 Laboratory test finding 09/06/2023 [facility] [address] [place] [address] [phone] FRT4 0.51 ng/dL Low 0.75-1.54 TSH 1.46 uIU/mL 0.50-6.00 Vitd-25Oh 19 ng/mL Low 30-100 VB12 169 pg/mL Low 230-1050 CBC W/Diff 09/06/2023 [facility] [address] [place] [place], [place] [address] [phone] WBC 6.8 10^3/M3 3.1-9.2 RBC 4.19 10^6/M3 3.70-5.50 HGB 13.1 GR/DL 11.5-16.1 HCT 38.2 % 34.5-47.8 MCV 91.0 CUMICR 82.6-95.8 MCH 31.3 PICOGR 27.9-32.9 MCHC 34.4 % 32.6-35.4 RDW 13.7 % 11.4-14.6 PLT 464 10^3/M3 High 140-350 MPV 7.1 CUMICR 7.0-10.6 %Neut 44.1 % 40.0-75.0 %Lymph 44.7 % 17.0-45.0 %[place] 7.8 % 1.0-11.0 %Eos 2.3 % 0.0-6.0 %Baso 1.1 % 0.0-2.0 #Neut 3.0 10^3/M3 1.5-8.0 #Lymph 3.1 10^3/M3 0.8-3.2 #[place] 0.5 10^3/M3 0.0-0.8 #Eos 0.2 10^3/m3 0.0-0.4 #Baso 0.1 10^3/m3 0.0-0.2 Comp. Met 09/06/2023 [facility] [address] [place] [address] [phone] Glucose 90 mg/dL 70-110 BUN 12 mg/dL [...] Escherichia coli Procedures Date Code Description Status 11/09/2023 97296 Venipuncture Routine Complet ed 11/01/2023 G2211 Continuation of care e/m vis it add on Completed 11/01/2023 82857 Venipuncture Routine Complet ed 09/06/2023 G9920 Scrning Perf And Negative Co mpleted 09/06/2023 G2211 Continuation of care e/m vis it add on Completed 09/06/2023 92977 Venipuncture Routine Complet ed 03/02/2023 [id number] Colonoscopy Completed 04/22/2020 [id number] Mammogram Completed Medical Devices Description No Information Available Encounters Type Date Location Provider Dx Diagnosis Office Visit 11/01/2023 2:30p [facility] PA-C F41.1 Generalized anxiety disorder F33.1 Major depressive dis order, recurrent, moderate 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, 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 disorder E03.9 Hypothyroidism, unsp ecified R30.0 Dysuria D75.838 Other thrombocytosis Office Visit 09/06/2023 10:00a [facility] Koki PAVEL huston F41.1 Generalized anxiety disorder F33.1 Major depressive dis order, recurrent, moderate 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, predom inattentive type E03.9 Hypothyroidism, unsp ecified E55.9 Vitamin D deficiency , unspecified E53.9 Vitamin B deficiency , unspecified K21.9 Gastro-esophageal re flux disease without esophagitis G47.00 Insomnia, unspecifie d Z60.8 Other problems relat ed to social environment Z79.899 Other fci (cur rent) drug therapy Assessments Date Code Description Provider 11/09/2023 H53.8 Other visual disturbances Me scot Whitten PA-C 11/09/2023 F51.05 Insomnia due to other mental disorder Koki Whitten PA-C 11/09/2023 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, predominantly inat Koki Whitten PA-C 11/09/2023 R11.2 Nausea with vomiting, unspec ified Koki Whitten PA-C 11/09/2023 K21.9 Gastro-esophagea l reflux disease without esophagitis Koki Whitten, [facility] 11/09/2023 R10.11 Right upper quadrant pain Me scot Whitten, [facility] 11/09/2023 R07.89 Other chest pain Koki Sto ner, [facility] 11/09/2023 F41.1 Generalized anxiety disorder Koki Stoner, [facility] 11/01/2023 F41.1 Generalized anxiety disorder Koki Stoner, [facility] 11/01/2023 F33.1 Major depressive disorder, recurrent, moderate [facility] Stoner, [facility] 11/01/2023 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, predominantly inat Koki Stoner, [facility] 11/01/2023 F51.05 Insomnia due to other mental disorder Koki Villegasr, [facility] 11/01/2023 E03.9 Hypothyroidism, unspecified Koki Stoner, [facility] 11/01/2023 R30.0 Dysuria Koki Villegasr, [facility] 11/01/2023 D75.838 Other thrombocytosis Koki Stoner, [facility] 09/06/2023 F41.1 Generalized anxiety disorder Koki Stoner, [facility] 09/06/2023 F33.1 Major depressive disorder, recurrent, moderate [facility] Stoner, [facility] 09/06/2023 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, predominantly inat [facility]oki Stoner, [facility] 09/06/2023 E03.9 Hypothyroidism, unspecified Koki Stoner, [facility] 09/06/2023 E55.9 Vitamin D deficiency, unspec ified Koki Stoner, [facility] 09/06/2023 E53.9 Vitamin B deficiency, unspec ified Koki Stoner, [facility] 09/06/2023 K21.9 Gastro-esophagea l reflux disease without esophagitis Koki Villegasr, [facility] 09/06/2023 G47.00 Insomnia, unspecified Mona e Stoner, [facility] 09/06/2023 Z60.8 Other problems related to so cial environment Koki Whitten, [facility] 09/06/2023 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 * Follow up:* 1 month (30 min) * F90.0 Attention-deficit hyperactivity disorder, predominantly inat* New Medication:* Ritalin 20 mg - 1 tablet by mouth three times a day. ongoing therapy. * F51.05 Insomnia due to other mental disorder* New Medication:* Lunesta 2 mg - 1 by mouth at bedtime. * E03.9 Hypothyroidism, unspecified * R30.0 Dysuria* New Medication:* Macrobid 100 mg - 1 by mouth twice a day x 5 days with food * D75.838 Other thrombocytosis* Follow up:* Hematology Functional Status Description No Information Available Mental Status Description No Information Available Referrals Refer to Reason for Referral Status Appt Art e Hematology/Oncology [facility] Scheduled 12/[address] [place] [address] [phone]
--- OUTSIDE RECORDS SUMMARY | 2024-03-23 03:20 | External Medical Summary | Continuity of Care Document ---
Author Name Unknown Organization [facility], Address [address] [place] [address] Phone [phone] Problems Active Problems Provider Date Moderate recurrent [...] SIG Qnty Indications Order ing Provider Date Nnwsupk75px Tablets 1 tablet by mouth three times a day. ongoing therapy. 30tabs F90.0 Laura Tse MD, PhD 4 Rexulti0.5mg Tablets 1 by mouth daily. 30tabs F33.1 Laura Tse MD, PhD 4 Levothyroxine Zhsmqu70jpi Tablets 1 by mouth daily on an empty stomach. 30tabs Laura Tse MD, PhD [address] 1 by mouth daily. Take on empty stomach 30 minutes prior to eating. 30caps K21.9 Laura Tse MD, PhD 4 Desvenlafaxine Succinate LZ597gv Tablets ER 24HR Take One Tablet By Mouth Every Day With Food 30tabs F41.1 Laura Tse MD, PhD 3 Prochlorperazine Yrfhiqk4nd Tablets 1 by mouth every 8 hours as needed for nausea. 10tabs Laura Tse MD, PhD 3 Vitamin D (Ergocalciferol)1.25mg (89419 Ut) Capsules Take One Capsule By Mouth Once Weekly 12caps Laura Tse MD, PhD 3 Oekcaq-Z39-153dv Tablets 1 by mouth daily. 90tabs Laura Tse MD, PhD 3 Rfirxzcagm812ot Capsules take 1 capsule by mouth 2 hours before bedtime. 30caps G25.81 Laura Tse MD, PhD 3 Quetiapine Dzauonws776mi Tablets take one (1) tablet by mouth at bedtime 30tabs Laura Tse MD, PhD 1 Cyvtnow788onf Capsules take 1 capsule by mouth daily 90caps K59.00 Laura Tse MD, PhD 1 3ML Luer Lock Safety Syringes/3ML/25G X 1"25G X 1" 3 ML Misc use to administer b12 12units Laura Tse MD, PhD 0 Kwympbuazcsgmp3825dfp/ ML Solution inject 1ml (1000mcg) intramuscularly every week x 4 weeks, then once monthly. 30ml Laura Tse MD, PhD 0 Mdyhmpzzgz64xy Tablets 1 by mouth every day at bedtime. 30tabs K21.9 Laura Tse MD, PhD 0 Zjohysumzz2gd Tablets 1 by mouth 2 times a day. 60tabs Riccardo Nickerson, 0 History Medications Aisolcvv745zw Capsules 1 by mouth twice a day x 5 days with food 10caps R30.0 Laura Tse MD, PhD 11/01/2023 - 11/06/2023 Balslaf9kg Tablets 1 by mouth at bedtime. 30tabs F51.05 Laura Tse MD, PhD 11/01/2023 - 11/09/2023 Focalin2.5mg Tablets 1 by mouth twice daily. Initial therapy. 14tabs F90.0 Laura Tse MD, PhD 09/06/2023 - 09/14/2023 Buspirone MCS20ac Tablets 1 by mouth twice a day [...] Code Status Date Vaccine Reaction Lot # 33669 Given 01/13/2021 TB Intradermal Test 0 mm - negative, read @ 4:32pm [id number] 03995 Given 04/17/2019 TB Intradermal Test 0.0MM read by Salvador Bonilla LPN at 11:41AM [id number] 92101 Given 08/04/2015 Tdap (Tetanus, diphtheria & acel. pertussis) Adacel or Boostrix 36768 Given 09/02/2014 TB Intradermal Test 0 mm reaction. Negative read by RF on 09/05/14 at 11:36am. [id number] 43088 Given 06/20/2007 Tdap (Tetanus, diphtheria & acel. pertussis) Adacel or Boostrix 51110 Given 01/24/2005 Td (Tetanus & D iphtheria) Tenivac 46889 Refused 09/06/2023 Sarscov2 Vaccin e 50 mcg/0.5 ML For Im Use 12 Yrs And Older 47635 Refused 04/11/2022 Influenza Virus Vaccine, Quadrivalent, Split Virus, Im Use 6-35 77983 Refused 09/09/2021 Influenza Virus Vaccine, Quadrivalent (Cciiv4), Derived From Cell 85844 Refused 09/09/2021 Moderna Sars-Co v-2 (Cov-19) vacc,100 mcg/ 0.5 mL 12Y+EMR Doc Only 23845 Refused 05/27/2019 Influenza Virus Vaccine, Quadrivalent, [place] Use 90304 Refused 05/31/2018 Influenza Virus Vaccine, Quadrivalent, Im Use 02279 Refused 08/18/2017 Tdap (Tetanus, diphtheria & acel. pertussis) Adacel or Boostrix 95959 Refused 07/20/2017 Influenza Virus Vaccine, Quadrivalent, Im Use 76615 Refused 07/06/2016 Influenza Virus Vaccine, Quadrivalent, Im Use 12993 Refused 10/06/2015 Influenza Virus Vaccine, Quadrivalent, [place] Use 35603 Refused 09/09/2014 Influenza Virus Vaccine, Quadrivalent, Im [...] Result H/L Range N ote BMP 11/16/2023 [facility]. [address] [place], [place] [id number] [phone] Glucose 119 mg/dL High 70-110 BUN 14 mg/dL 6-25 Creatinine 0.8 mg/dL 0.5-1.2 Sodium 140 mEq/L 135-145 Potassium 3.9 mEq/L 3.5-5.0 Chloride 101 mEq/L 95-107 Co-2 24 mEq/L 24-31 Calcium 9.6 mg/dL 8.5-10.6 GFR 82 ML/MIN/1.73SQM >60 Comp. Met 11/09/2023 [facility]. [address] [place], [place] [id number] [phone] Glucose 113 mg/dL High 70-110 BUN 14 [...] 2.0-3.4 GFR 95 ML/MIN/1.73SQM >60 Hba1c 11/09/2023 [facility]. [address] [place] [address] [phone] A1c 5.40 % 4.70-6.50 1 CBC W/Diff 11/09/2023 [facility]. [address] [place] [address] [phone] WBC 8.2 10^3/M3 3.1-9.2 RBC 4.64 10^6/M3 3.70-5.50 HGB 14.7 GR/DL 11.5-16.1 HCT 42.7 % 34.5-47.8 MCV 92.1 CUMICR 82.6-95.8 MCH 31.8 PICOGR 27.9-32.9 MCHC 34.5 % 32.6-35.4 RDW 13.6 % 11.4-14.6 PLT 530 10^3/M3 High 140-350 MPV 7.5 CUMICR 7.0-10.6 %Neut 51.3 % 40.0-75.0 %Lymph 38.4 % 17.0-45.0 %[place] 7.7 % 1.0-11.0 %Eos 2.0 % 0.0-6.0 %Baso 0.6 % 0.0-2.0 #Neut 4.2 10^3/M3 1.5-8.0 #Lymph 3.1 10^3/M3 0.8-3.2 #[place] 0.6 10^3/M3 0.0-0.8 #Eos 0.2 10^3/m3 0.0-0.4 #Baso 0.0 10^3/m3 0.0-0.2 Urinalysis 11/01/2023 [facility]. [address] [place] [address] [phone] Color LIGHT-ORANGE Abnormal Appearance TURBID Abnormal Clear [...] /HPF Abnormal Not Present Urine Culture 11/01/2023 [facility]. [address] [place] [address] [phone] Urine Source URINE Total Col Count >100,000 COL/CC Urine Isolate#1 11/01/2023 [facility]. [address] [place] [address] [phone] Isolate #1 Escherichia coli 2 Amox/K Clav <=8/4 S Ampicillin <=8 S Aztreonam <=4 S Cefazolin <=2 S Cefepime <=2 S Ceftriaxone <=1 S Ciprofloxacin <=0.25 S Gentamicin <=2 S Nitrofurantoin <=32 S Tetracycline <=4 S Tobramycin <=2 S Trimeth/Sulfa <=2/38 S Meropenem <=1 S Laboratory test finding 11/01/2023 [facility]. [address] [place] [address] [phone] TSH 0.96 uIU/mL 0.50-6.00 FRT4 0.79 ng/dL 0.75-1.54 Laboratory test finding 09/06/2023 [facility]. [address] [place] [address] [phone] FRT4 0.51 ng/dL Low 0.75-1.54 TSH 1.46 uIU/mL 0.50-6.00 Vitd-25Oh 19 ng/mL Low 30-100 VB12 169 pg/mL Low 230-1050 CBC W/Diff 09/06/2023 [facility]. [address] [place] [address] [phone] WBC 6.8 10^3/M3 3.1-9.2 RBC 4.19 10^6/M3 3.70-5.50 HGB 13.1 GR/DL 11.5-16.1 HCT 38.2 % 34.5-47.8 MCV 91.0 CUMICR 82.6-95.8 MCH 31.3 PICOGR 27.9-32.9 MCHC 34.4 % 32.6-35.4 RDW 13.7 % 11.4-14.6 PLT 464 10^3/M3 High 140-350 MPV 7.1 CUMICR 7.0-10.6 %Neut 44.1 % 40.0-75.0 %Lymph 44.7 % 17.0-45.0 %[place] 7.8 % 1.0-11.0 %Eos 2.3 % 0.0-6.0 %Baso 1.1 % 0.0-2.0 #Neut 3.0 10^3/M3 1.5-8.0 #Lymph 3.1 10^3/M3 0.8-3.2 #[place] 0.5 10^3/M3 0.0-0.8 #Eos 0.2 10^3/m3 0.0-0.4 #Baso 0.1 10^3/m3 0.0-0.2 Comp. Met 09/06/2023 [facility]. [address] [place] [address] [phone] Glucose 90 mg/dL 70-110 BUN 12 mg/dL [...] coli Procedures Date Code Description Status 11/16/2023 13086 Venipuncture Routine Complet ed 11/09/2023 G2211 Continuation of care e/m vis it add on Completed 11/09/2023 77596 Venipuncture Routine Complet ed 11/01/2023 G2211 Continuation of care e/m vis it add on Completed 11/01/2023 72432 Venipuncture Routine Complet ed 09/06/2023 G9920 Scrning Perf And Negative Co mpleted 09/06/2023 G2211 Continuation of care e/m vis it add on Completed 09/06/2023 42154 Venipuncture Routine Complet ed 03/02/2023 [id number] Colonoscopy Completed 04/22/2020 [id number] Mammogram Completed Medical Devices Description No Information Available Encounters Type Date Location Provider Dx Diagnosis Office Visit 11/09/2023 7[place]p [place] H53.8 Other visual disturbances 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, predom inattentive type R11.2 Nausea with vomiting , unspecified K21.9 Gastro-esophageal re flux disease without esophagitis R10.11 Right upper quadrant pain R07.89 Other chest pain F41.1 Generalized anxiety disorder Office Visit 11/01/2023 2:[place]p [place] F41.1 Generalized anxiety disorder F33.1 Major depressive dis order, recurrent, moderate 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, 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 disorder E03.9 Hypothyroidism, unsp ecified R30.0 Dysuria D75.838 Other thrombocytosis Office Visit 09/06/2023 10:00a [place] [facility] sosaPAVEL starr F41.1 Generalized anxiety disorder F33.1 Major depressive dis order, recurrent, moderate 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, predom inattentive type E03.9 Hypothyroidism, unsp ecified E55.9 Vitamin D deficiency , unspecified E53.9 Vitamin B deficiency , unspecified K21.9 Gastro-esophageal re flux disease without esophagitis G47.00 Insomnia, unspecifie d Z60.8 Other problems relat ed to social environment Z79.899 Other snf (cur rent) drug therapy Assessments Date Code Description Provider 11/16/2023 F51.05 Insomnia due to other mental disorder Levi Petty JR, DO 11/16/2023 F51.05 Insomnia due to other mental disorder Lab - [place] 11/16/2023 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, predominantly inattentive type Levi Petty JR, DO 11/16/2023 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, predominantly inattentive type Lab - [place] 11/09/2023 H53.8 Other visual disturbances Me scot PAVEL Whitten 11/09/2023 F51.05 Insomnia due to other mental disorder Koki Whitten PA-C 11/09/2023 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, predominantly inat ALAN SaldivarC 11/09/2023 R11.2 Nausea with vomiting, unspec ified ALAN SaldivarC 11/09/2023 K21.9 Gastro-esophagea l reflux disease without esophagitis ALAN SaldivarC 11/09/2023 R10.11 Right upper quadrant pain Me scot PAVEL Whitten 11/09/2023 R07.89 Other chest pain Koki sinclair PA-C 11/09/2023 F41.1 Generalized anxiety disorder Koki Whitten PA-C 11/01/2023 F41.1 Generalized anxiety disorder ALAN SaldivarC 11/01/2023 F33.1 Major depressive disorder, recurrent, moderate Koki Whitten PA-C 11/01/2023 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, predominantly inat Koki Villegasr, MD-C 11/01/2023 F51.05 Insomnia due to other mental disorder Koki Whitten, MD-C 11/01/2023 E03.9 Hypothyroidism, unspecified Koki Villegasr, MD-C 11/01/2023 R30.0 Dysuria Koki Whitten, MD-C 11/01/2023 D75.838 Other thrombocytosis Koki Villegasr, MD-C 09/06/2023 F41.1 Generalized anxiety disorder Koki Villegasr, MD-C 09/06/2023 F33.1 Major depressive disorder, recurrent, moderate Koki Villegasr, MD-C 09/06/2023 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, predominantly inat Koki Villegasr, MD-C 09/06/2023 E03.9 Hypothyroidism, unspecified Koki Villegasr, MD-C 09/06/2023 E55.9 Vitamin D deficiency, unspec ified Koki Villegasr, MD-C 09/06/2023 E53.9 Vitamin B deficiency, unspec ified Koki Stoner, MD-C 09/06/2023 K21.9 Gastro-esophagea l reflux disease without esophagitis Koki Whitten, MD-C 09/06/2023 G47.00 Insomnia, unspecified Mona Villegasr, MD-C 09/06/2023 Z60.8 Other problems r elated to social environment Koki Whitten PA-C 09/06/2023 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 Cervantes tomorrow or early next week. * F51.05 Insomnia due to other mental disorder* Recommendations:* Stop Lunesta. Restart Quetiapine. * F90.0 Attention-deficit hyperactivity disorder, predominantly inat* Recommendations:* Get the branded Ritalin from [facility]. * R11.2 Nausea with vomiting, unspecified* Recommendations:* Continue Nexium in the morning. Start Famotidine at night. * K21.9 Gastro-esophageal reflux disease without esophagitis * R10.11 Right upper quadrant pain* New Xrays:* Ultrasound Abdomen Limited, Ordered: 11/09/23 * R07.89 Other chest pain * F41.1 Generalized anxiety disorder Functional Status Description No Information Available Mental Status Description No Information Available Referrals Refer to Dr Reason for Referral Status Appt Art e Hematology/Oncology [facility] Scheduled 12/[address] [place] [address] [phone]
--- OUTSIDE RECORDS SUMMARY | 2024-03-23 03:20 | External Medical Summary | Continuity of Care Document ---
Author Name Unknown Organization [facility] Address [address] [facility], [place] [address] Phone [phone] Problems Active Problems Provider Date Moderate recurrent [...] SIG Qnty Indications Order ing Provider Date Rdhoqhs57am Tablets 1 tablet by mouth three times a day. ongoing therapy. 30tabs F90.0 Laura Tse MD, PhD 4 Rexulti0.5mg Tablets 1 by mouth daily. 30tabs F33.1 Laura Tse MD, PhD 4 Levothyroxine Bdsgtl13foy Tablets 1 by mouth daily on an empty stomach. 30tabs Laura Tse MD, PhD [address] 1 by mouth daily. Take on empty stomach 30 minutes prior to eating. 30caps K21.9 Laura Tse MD, PhD 4 Desvenlafaxine Succinate ZB045ja Tablets ER 24HR Take One Tablet By Mouth Every Day With Food 30tabs F41.1 Laura Tse MD, PhD 3 Prochlorperazine Bepiucg7zj Tablets 1 by mouth every 8 hours as needed for nausea. 10tabs Laura Tse MD, PhD 3 Vitamin D (Ergocalciferol)1.25mg (22486 Ut) Capsules Take One Capsule By Mouth Once Weekly 12caps Laura Tse MD, PhD 3 Yhdcxh-Z86-475ku Tablets 1 by mouth daily. 90tabs Laura Tse MD, PhD 3 Icewfttdzx145fd Capsules take 1 capsule by mouth 2 hours before bedtime. 30caps G25.81 Laura Tse MD, PhD 3 Quetiapine Jdnoungx283go Tablets take one (1) tablet by mouth at bedtime 30tabs Laura Tse MD, PhD 1 Jpftbnr270tbr Capsules take 1 capsule by mouth daily 90caps K59.00 Laura Tse MD, PhD 1 3ML Luer Lock Safety Syringes/3ML/25G X 1"25G X 1" 3 ML Misc use to administer b12 12units Laura Tse MD, PhD 0 Wktcvdifwwgphx9302big/ ML Solution inject 1ml (1000mcg) intramuscularly every week x 4 weeks, then once monthly. 30ml Laura Tse MD, PhD 0 Gtedjsmajd92qn Tablets 1 by mouth every day at bedtime. 30tabs K21.9 Laura Tse MD, PhD 0 Tlskjdpkrp6wh Tablets 1 by mouth 2 times a day. 60tabs Riccardo Bolivar Liya, 0 History Medications Uridzvep090sp Capsules 1 by mouth twice a day x 5 days with food 10caps R30.0 Laura Tse MD, PhD 11/01/2023 - 11/06/2023 Hxhswpn0hb Tablets 1 by mouth at bedtime. 30tabs F51.05 Laura Tse MD, PhD 11/01/2023 - 11/09/2023 Focalin2.5mg Tablets 1 by mouth twice daily. Initial therapy. 14tabs F90.0 Laura Tse MD, PhD 09/06/2023 - 09/14/2023 Buspirone CTX29ff Tablets 1 by mouth twice a day [...] Code Status Date Vaccine Reaction Lot # [id number] Given 01/13/2021 TB Intradermal Test 0 mm - negative, read @ 4:32pm [id number] 42715 Given 04/17/2019 TB Intradermal Test 0.0MM read by Salvador Bonilla LPN at 11:41AM [id number] 98003 Given 08/04/2015 Tdap (Tetanus, diphtheria & acel. pertussis) Adacel or Boostrix 41494 Given 09/02/2014 TB Intradermal Test 0 mm reaction. Negative read by RF on 09/05/14 at 11:36am. [id number] 46019 Given 06/20/2007 Tdap (Tetanus, diphtheria & acel. pertussis) Adacel or Boostrix 40204 Given 01/24/2005 Td (Tetanus & D iphtheria) Teniva 78217 Refused 09/06/2023 Sarscov2 Vaccin e 50 mcg/0.5 ML For Im Use 12 Yrs And Older 08427 Refused 04/11/2022 Influenza Virus Vaccine, Quadrivalent, Split Virus, Im Use 6-35 83404 Refused 09/09/2021 Influenza Virus Vaccine, Quadrivalent (Cciiv4), Derived From Cell 21760 Refused 09/09/2021 Moderna Sars-Co v-2 (Cov-19) vacc,100 mcg/ 0.5 mL 12Y+EMR Doc Only 84899 Refused 05/27/2019 Influenza Virus Vaccine, Quadrivalent, Im Use 15236 Refused 05/31/2018 Influenza Virus Vaccine, Quadrivalent, Im Use 30514 Refused 08/18/2017 Tdap (Tetanus, diphtheria & acel. pertussis) Adacel or Boostrix 33370 Refused 07/20/2017 Influenza Virus Vaccine, Quadrivalent, Im Use 16209 Refused 07/06/2016 Influenza Virus Vaccine, Quadrivalent, Im Use 84377 Refused 10/06/2015 Influenza Virus Vaccine, Quadrivalent, Im Use 80870 Refused 09/09/2014 Influenza Virus Vaccine, Quadrivalent, Im [...] H/L Range N ote Comp. Met 11/09/2023 [facility]. [address] [place] [address] [phone] Glucose 113 mg/dL High 70-110 BUN 14 [...] 2.0-3.4 GFR 95 ML/MIN/1.73SQM >60 Hba1c 11/09/2023 [facility]. [address] [place] [address] [phone] A1c 5.40 % 4.70-6.50 1 CBC W/Diff 11/09/2023 [facility]. [address] [place] [address] [phone] WBC 8.2 10^3/M3 3.1-9.2 RBC 4.64 10^6/M3 3.70-5.50 HGB 14.7 GR/DL 11.5-16.1 HCT 42.7 % 34.5-47.8 MCV 92.1 CUMICR 82.6-95.8 MCH 31.8 PICOGR 27.9-32.9 MCHC 34.5 % 32.6-35.4 RDW 13.6 % 11.4-14.6 PLT 530 10^3/M3 High 140-350 MPV 7.5 CUMICR 7.0-10.6 %Neut 51.3 % 40.0-75.0 %Lymph 38.4 % 17.0-45.0 %[place] 7.7 % 1.0-11.0 %Eos 2.0 % 0.0-6.0 %Baso 0.6 % 0.0-2.0 #Neut 4.2 10^3/M3 1.5-8.0 #Lymph 3.1 10^3/M3 0.8-3.2 #[place] 0.6 10^3/M3 0.0-0.8 #Eos 0.2 10^3/m3 0.0-0.4 #Baso 0.0 10^3/m3 0.0-0.2 Urinalysis 11/01/2023 [facility]. [address] [place] [address] [phone] Color LIGHT-ORANGE Abnormal Appearance TURBID Abnormal Clear [...] /HPF Abnormal Not Present Urine Culture 11/01/2023 [facility]. [address] [place] [address] [phone] Urine Source URINE Total Col Count >100,000 COL/CC Urine Isolate#1 11/01/2023 [facility]. [address] [place] [address] [phone] Isolate #1 Escherichia coli 2 Amox/K Clav <=8/4 S Ampicillin <=8 S Aztreonam <=4 S Cefazolin <=2 S Cefepime <=2 S Ceftriaxone <=1 S Ciprofloxacin <=0.25 S Gentamicin <=2 S Nitrofurantoin <=32 S Tetracycline <=4 S Tobramycin <=2 S Trimeth/Sulfa <=2/38 S Meropenem <=1 S Laboratory test finding 11/01/2023 [facility]. [address] [place] [address] [phone] TSH 0.96 uIU/mL 0.50-6.00 FRT4 0.79 ng/dL 0.75-1.54 Laboratory test finding 09/06/2023 [facility]. [address] [place] [address] [phone] FRT4 0.51 ng/dL Low 0.75-1.54 TSH 1.46 uIU/mL 0.50-6.00 Vitd-25Oh 19 ng/mL Low 30-100 VB12 169 pg/mL Low 230-1050 CBC W/Diff 09/06/2023 [facility]. [address] [place], [place] [phone] WBC 6.8 10^3/M3 3.1-9.2 RBC 4.19 10^6/M3 3.70-5.50 HGB 13.1 GR/DL 11.5-16.1 HCT 38.2 % 34.5-47.8 MCV 91.0 CUMICR 82.6-95.8 MCH 31.3 PICOGR 27.9-32.9 MCHC 34.4 % 32.6-35.4 RDW 13.7 % 11.4-14.6 PLT 464 10^3/M3 High 140-350 MPV 7.1 CUMICR 7.0-10.6 %Neut 44.1 % 40.0-75.0 %Lymph 44.7 % 17.0-45.0 %[place] 7.8 % 1.0-11.0 %Eos 2.3 % 0.0-6.0 %Baso 1.1 % 0.0-2.0 #Neut 3.0 10^3/M3 1.5-8.0 #Lymph 3.1 10^3/M3 0.8-3.2 #[place] 0.5 10^3/M3 0.0-0.8 #Eos 0.2 10^3/m3 0.0-0.4 #Baso 0.1 10^3/m3 0.0-0.2 Comp. Met 09/06/2023 [facility]. [address] [place] [address] [phone] Glucose 90 mg/dL 70-110 BUN 12 mg/dL [...] coli Procedures Date Code Description Status 11/09/2023 G2211 Continuation of care e/m vis it add on Completed 11/09/2023 94794 Venipuncture Routine Complet ed 11/01/2023 G2211 Continuation of care e/m vis it add on Completed 11/01/2023 10000 Venipuncture Routine Complet ed 09/06/2023 G9920 Scrning Perf And Negative Co mpleted 09/06/2023 G2211 Continuation of care e/m vis it add on Completed 09/06/2023 87344 Venipuncture Routine Complet ed 03/02/2023 [id number] Colonoscopy Completed 04/22/2020 [id number] Mammogram Completed Medical Devices Description No Information Available Encounters Type Date Location Provider Dx Diagnosis Office Visit 11/09/2023 7:15p Dodie Whitten PA-C H53.8 Other visual disturbances 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, predom inattentive type R11.2 Nausea with vomiting , unspecified K21.9 Gastro-esophageal re flux disease without esophagitis R10.11 Right upper quadrant pain R07.89 Other chest pain F41.1 Generalized anxiety disorder Office Visit 11/01/2023 2:30p Dodie sinclair PA-C F41.1 Generalized anxiety disorder F33.1 Major depressive dis order, recurrent, moderate 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, 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 disorder E03.9 Hypothyroidism, unsp ecified R30.0 Dysuria D75.838 Other thrombocytosis Office Visit 09/06/2023 10:00a Dodie Graf PA-C F41.1 Generalized anxiety disorder F33.1 Major depressive dis order, recurrent, moderate 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, predom inattentive type E03.9 Hypothyroidism, unsp ecified E55.9 Vitamin D deficiency , unspecified E53.9 Vitamin B deficiency , unspecified K21.9 Gastro-esophageal re flux disease without esophagitis G47.00 Insomnia, unspecifie d Z60.8 Other problems relat ed to social environment Z79.899 Other fpc (cur rent) drug therapy Assessments Date Code Description Provider 11/09/2023 H53.8 Other visual disturbances Me scot Whitten, [facility] 11/09/2023 F51.05 Insomnia due to other mental disorder Koki Whitten, [facility] 11/09/2023 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, predominantly inat Koki Stoner, [facility] 11/09/2023 R11.2 Nausea with vomiting, unspec ified Koki Stoner, [facility] 11/09/2023 K21.9 Gastro-esophagea l reflux disease without esophagitis Koki Whitten, [facility] 11/09/2023 R10.11 Right upper quadrant pain Me scot Whitten, [facility] 11/09/2023 R07.89 Other chest pain Koki Sto ner, [facility] 11/09/2023 F41.1 Generalized anxiety disorder Koki Villegasr, [facility] 11/01/2023 F41.1 Generalized anxiety disorder Koki Villegasr, [facility] 11/01/2023 F33.1 Major depressive disorder, recurrent, moderate Koki Stoner, [facility] 11/01/2023 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, predominantly inat Koki Villegasr, [facility] 11/01/2023 F51.05 Insomnia due to other mental disorder Koki Villegasr, [facility] 11/01/2023 E03.9 Hypothyroidism, unspecified Koki Stoner, [facility] 11/01/2023 R30.0 Dysuria Koki Villegasr, [facility] 11/01/2023 D75.838 Other thrombocytosis Koki Stoner, [facility] 09/06/2023 F41.1 Generalized anxiety disorder Koki Stoner, [facility] 09/06/2023 F33.1 Major depressive disorder, recurrent, moderate Koki Stoner, [facility] 09/06/2023 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, predominantly inat [facility]oki Stoner, [facility] 09/06/2023 E03.9 Hypothyroidism, unspecified Koki Stoner, [facility] 09/06/2023 E55.9 Vitamin D deficiency, unspec ified Koki Stoner, [facility] 09/06/2023 E53.9 Vitamin B deficiency, unspec ified Koki Whitten PA-C 09/06/2023 K21.9 Gastro-esophagea l reflux disease without esophagitis Koki Whitten PA-C 09/06/2023 G47.00 Insomnia, unspecified Mona Whitten PA-C 09/06/2023 Z60.8 Other problems related to so cial environment Koki Whitten PA-C 09/06/2023 Z79.899 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
--- OUTSIDE RECORDS SUMMARY | 2024-03-23 03:20 | External Medical Summary | Continuity of Care Document ---
Author Name Unknown Organization [facility] Address [address], [place] [address] Phone [phone] Problems Active Problems Provider Date Moderate recurrent [...] Description Comments Sex Unknown Tobacco Use Reviewed: 11/01/23 Never Smoked Cigarette s Tobacco Use Reviewed: 11/01/23 Never Smoked Cigars Tobacco Use Reviewed: 11/01/23 Never Smoked A Pipe Smoking Status Reviewed: 11/01/23 Never Smoked A Pipe Smokeless Tobacco 11/01/2023 Never Used Smokeless To bacco ETOH Use Rarely consumes alcohol Recreational Drug Use Denies Drug Use Allergies and adverse reactions Description No Known Drug Allergies Medications Active Medications SIG Qnty Indications Order ing Provider Date Rexulti0.5mg Tablets 1 by mouth daily. 30tabs F33.1 Laura Tse MD, PhD 4 Ytwmzuv33xe Tablets 1 tablet by mouth three times a day. ongoing therapy. 30tabs F90.0 Laura Tse MD, PhD 4 Vpqccsf6bj Tablets 1 by mouth at bedtime. 30tabs F51.05 Laura Tse MD, PhD 4 Levothyroxine Dwyoxm55szs Tablets 1 by mouth daily on an empty stomach. 30tabs Laura Tse MD, PhD [address] 1 by mouth daily. Take on empty stomach 30 minutes prior to eating. 30caps K21.9 Laura Tse MD, PhD 4 Desvenlafaxine Succinate ZO819pn Tablets ER 24HR Take One Tablet By Mouth Every Day With Food 30tabs F41.1 Laura Tse MD, PhD 3 Prochlorperazine Cltohzi8ku Tablets 1 by mouth every 8 hours as needed for nausea. 10tabs Laura Tse MD, PhD 3 Vitamin D (Ergocalciferol)1.25mg (73565 Ut) Capsules Take One Capsule By Mouth Once Weekly 12caps Laura Tse MD, PhD 3 [id number]-O34-280eq Tablets 1 by mouth daily. 90tabs Laura Tse MD, PhD 3 Jaivraecxv310xl Capsules take 1 capsule by mouth 2 hours before bedtime. 30caps G25.81 Laura Tse MD, PhD 3 Quetiapine Dpokglnq811so Tablets take one (1) tablet by mouth at bedtime 30tabs Laura Tse MD, PhD 1 Ngdkqdc585tbf Capsules take 1 capsule by mouth daily 90caps K59.00 Laura Tse MD, PhD 1 3ML Luer Lock Safety Syringes/3ML/25G X 1"25G X 1" 3 ML Misc use to administer b12 12units Laura Tse MD, PhD 0 Zemdnezzvojiuw6200jjp/ ML Solution inject 1ml (1000mcg) intramuscularly every week x 4 weeks, then once monthly. 30ml Laura Tse MD, PhD 0 Uxfihstrjz73yq Tablets 1 by mouth every day 30tabs K21 .9 Laura Tse MD, PhD 0 Ctaaxeknaw6er Tablets 1 by mouth 2 times a day. 60tabs Riccardo Nickerson, DO 0 History Medications Jbjphbwj976ru Capsules 1 by mouth twice a day x 5 days with food 10caps R30.0 Laura Tse MD, PhD 11/01/2023 - 11/06/2023 Focalin2.5mg Tablets 1 by mouth twice daily. Initial therapy. 14tabs F90.0 Laura Tse MD, PhD 09/06/2023 - 09/14/2023 Buspirone VZV87kp Tablets 1 by mouth twice a day [...] Code Status Date Vaccine Reaction Lot # [id number] Given 01/13/2021 TB Intradermal Test 0 mm - negative, read @ 4:32pm [id number] Given 04/17/2019 TB Intradermal Test 0.0MM read by Salvador Bonilla LPN at 11:41AM [id number] 54876 Given 09/02/2014 TB Intradermal Test 0 mm reaction. Negative read by RF on 09/05/14 at 11:36am. [id number] Refused 09/06/2023 Sarscov2 Vaccin e 50 mcg/0.5 ML For Im Use 12 Yrs And Older 40869 Refused 04/11/2022 Influenza Virus Vaccine, Quadrivalent, Split Virus, Im Use 6-35 54742 Refused 09/09/2021 Moderna Sars-Co v-2 (Cov-19) vacc,100 mcg/ 0.5 mL 12Y+EMR Doc Only 48572 Refused 09/09/2021 Influenza Virus Vaccine, Quadrivalent (Cciiv4), Derived From Cell 69909 Refused 05/27/2019 Influenza Virus Vaccine, Quadrivalent, Im Use 93387 Refused 05/31/2018 Influenza Virus Vaccine, Quadrivalent, Im Use 80799 Refused 08/18/2017 Tdap (Tetanus, diphtheria & acel. pertussis) Adacel or Boostrix 14281 Refused 07/20/2017 Influenza Virus Vaccine, Quadrivalent, Im Use 66268 Refused 07/06/2016 Influenza Virus Vaccine, Quadrivalent, Im Use 12198 Refused 10/06/2015 Influenza Virus Vaccine, Quadrivalent, Im Use 49691 Refused 09/09/2014 Influenza Virus Vaccine, Quadrivalent, Im Use Vital Signs Date Vital Result Comment 11/01/2023 2:29pm BP Systolic 120 mmHg BP Diastolic 70 mmHg Body Temperature 98.2 F Heart Rate 76 /min Respiratory Rate 16 /min 09/06/2023 10:21am BP Systolic 100 mmHg BP Diastolic 64 mmHg Body Temperature 98.1 F Heart Rate 72 /min Respiratory Rate 18 /min Weight 134.00 lb Weight 60.782 kg Height 63 inches 5'3" BMI (Body Mass Index) 23.7 kg/m2 [place] Body Weight 115 lb Results Test Acquired Date Facility Test Result H/L Range N ote Urinalysis 11/01/2023 [facility] [address] [place], [place] [id number] [phone] Color LIGHT-ORANGE Abnormal Appearance TURBID Abnormal Clear [...] Not Present Urine Culture 11/01/2023 [facility] [address] [place], [place] [id number] [phone] Urine Source URINE Total Col Count >100,000 COL/CC Urine Isolate#1 11/01/2023 [facility] [address] [place] [address] [phone] Isolate #1 Escherichia coli 1 Amox/K Clav <=8/4 S Ampicillin <=8 S Aztreonam <=4 S Cefazolin <=2 S Cefepime <=2 S Ceftriaxone <=1 S Ciprofloxacin <=0.25 S Gentamicin <=2 S Nitrofurantoin <=32 S Tetracycline <=4 S Tobramycin <=2 S Trimeth/Sulfa <=2/38 S Meropenem <=1 S Laboratory test finding 11/01/2023 [facility] [address] [place] [address] [phone] TSH 0.96 uIU/mL 0.50-6.00 FRT4 0.79 ng/dL 0.75-1.54 Laboratory test finding 09/06/2023 [facility] [address] [place] [address] [phone] FRT4 0.51 ng/dL Low 0.75-1.54 TSH 1.46 uIU/mL 0.50-6.00 Vitd-25Oh 19 ng/mL Low 30-100 VB12 169 pg/mL Low 230-1050 CBC W/Diff 09/06/2023 [facility] [address] [place] [address] [phone] WBC 6.8 10^3/M3 3.1-9.2 RBC 4.19 10^6/M3 3.70-5.50 HGB 13.1 GR/DL 11.5-16.1 HCT 38.2 % 34.5-47.8 MCV 91.0 CUMICR 82.6-95.8 MCH 31.3 PICOGR 27.9-32.9 MCHC 34.4 % 32.6-35.4 RDW 13.7 % 11.4-14.6 PLT 464 10^3/M3 High 140-350 MPV 7.1 CUMICR 7.0-10.6 %Neut 44.1 % 40.0-75.0 %Lymph 44.7 % 17.0-45.0 %Pickens 7.8 % 1.0-11.0 %Eos 2.3 % 0.0-6.0 %Baso 1.1 % 0.0-2.0 #Neut 3.0 10^3/M3 1.5-8.0 #Lymph 3.1 10^3/M3 0.8-3.2 #Pickens 0.5 10^3/M3 0.0-0.8 #Eos 0.2 10^3/m3 0.0-0.4 #Baso 0.1 10^3/m3 0.0-0.2 Comp. Met 09/06/2023 [facility] [address] [place] [address] [phone] Glucose 90 mg/dL 70-110 BUN 12 mg/dL [...] g/dL 2.0-3.4 GFR 95 ML/MIN/1.73SQM >60 1 Escherichia coli Procedures Date Code Description Status 11/01/2023 G2211 Continuation of care e/m vis it add on Completed 11/01/2023 40579 Venipuncture Routine Complet ed 09/06/2023 G9920 Scrning Perf And Negative Co mpleted 09/06/2023 G2211 Continuation of care e/m vis it add on Completed 09/06/2023 13275 Venipuncture Routine Complet ed 03/02/2023 [id number] Colonoscopy Completed 04/22/2020 [id number] Mammogram Completed Medical Devices Description No Information Available Encounters Type Date Location Provider Dx Diagnosis Office Visit 11/01/2023 2:30p [facility] K[facility] Whitten PA-C F41.1 Generalized anxiety disorder F33.1 Major depressive dis order, recurrent, moderate 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, 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 disorder E03.9 Hypothyroidism, unsp ecified R30.0 Dysuria D75.838 Other thrombocytosis Office Visit 09/06/2023 10:00a [facility] K[facility] Graf, [facility] F41.1 Generalized anxiety disorder F33.1 Major depressive dis order, recurrent, moderate 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, predom inattentive type E03.9 Hypothyroidism, unsp ecified E55.9 Vitamin D deficiency , unspecified E53.9 Vitamin B deficiency , unspecified K21.9 Gastro-esophageal re flux disease without esophagitis G47.00 Insomnia, unspecifie d Z60.8 Other problems relat ed to social environment Z79.899 Other jail (cur rent) drug therapy Assessments Date Code Description Provider 11/01/2023 F41.1 Generalized [facility] 11/01/2023 F33.1 Major depressive disorder, recurrent, moderate Koki Stoner, [facility] 11/01/2023 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, predominantly inat Koki Villegasr, [facility] 11/01/2023 F51.05 Insomnia due to other mental disorder [facility]legasr, [facility] 11/01/2023 E03.9 Hypothyroidism, unspecified Koki Stoner, [facility] 11/01/2023 R30.0 Dysuria Koki Whitten, [facility] 11/01/2023 D75.838 Other thrombocytosis Koki Villegasr, [facility] 09/06/2023 F41.1 Generalized anxiety disorder [facility]legas[facility], [facility] 09/06/2023 F33.1 Major depressive disorder, recurrent, moderate Koki Stoner, [facility] 09/06/2023 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, predominantly inat Koki Stoner, [facility] 09/06/2023 E03.9 Hypothyroidism, unspecified Koki Stoner, [facility] 09/06/2023 E55.9 Vitamin D deficiency, unspec ified Koki Stoner, [facility] 09/06/2023 E53.9 Vitamin B deficiency, unspec ified Koki Stoner, [facility] 09/06/2023 K21.9 Gastro-esophagea l reflux disease without esophagitis Koki Whitten PA-C 09/06/2023 G47.00 Insomnia, unspecified Mona Whitten PA-C 09/06/2023 Z60.8 Other problems related to so cial environment Koki Whitten PA-C 09/06/2023 Z79.899 Other jail (current) dr ug therapy Koki Whitten PA-C Plan of Treatment Future Appointment(s):* 12/04/2023 4:30 pm - Koki Whitten PA-C at [facility] 11/01/2023 - Koki Whitten PA-C* F41.1 Generalized [...] Status Appt Art e Hematology/Oncology [facility] Scheduled 12/[address] [place] [address] [phone]
--- OUTSIDE RECORDS SUMMARY | 2024-03-23 03:20 | External Medical Summary ---
Author Name Unknown Address Unknown Organization K1F:[facility] [address] [place] [address] Laboratory Report Ordering Provider Test Date Status DEANNA CALVILLO 12/28/2023 14:52:49 Final Observation Date Value Abnormality Reference (Units ) Status Lipase 12/28/2023 14:52:49 31 13-60 (U/L ) Final Performing Location [facility] [address] [place] [address]
--- OUTSIDE RECORDS SUMMARY | 2024-03-23 03:20 | External Medical Summary | Summary of Care ---
Author Name Unknown Organization [facility] Address [address] [place] [address] Phone [phone] Care Team Providers Care Director Of [facility] Name Role Phone Laura Tse MD Primary Care Provider + Encounter Details Date Type Department Care Team (Late st Contact Info) Description 12/26/2023 Orders Only Radiology, [facility] [address] [place], [place] [id number] Requisition, External Radiology [address] [place] [address] Right upper quadrant pain* Allergies Active Allergy Reactions Criticality Noted Date Comments Erythromycin 01/09/2002 GI UPSET documented as of this encounter (statuses as of 12/26/2023) Medications Medication Sig Dispensed Refills Start Date [...] as of this encounter (statuses as of 12/26/2023) Active Problems Problem Noted Date Diagnosed Date [...] as of this encounter (statuses as of 12/26/2023) Resolved Problems Problem Noted Date Diagnosed Date Resolved Date Encounter for supervision of other normal 02/27/2003 11/14/2003 Overview: ICD-10 update of inactive term Constipation 11/14/2003 Overview: ICD-10 update of inactive term URIN TRACT INFECTION NOS 08/2004 documented as of this encounter (statuses as of 12/26/2023) Immunizations Name Administration Dates Next Due TD, [...] of this encounter Plan of Treatment Scheduled Orders Name Type Priority Associated Diagnoses Orde r Schedule US ABDOMEN LIMITED Medical Imaging Routine Right upper quadrant pain Expected: 12/26/2023, Expires: 01/24/2025 Scheduled Procedures Name Priority Associated Diagnoses Date/Ti [...] as of this encounter Visit Diagnoses Diagnosis Right upper quadrant pain- Primary Abdominal pain, right upper quadrant documented in this encounter Advance Directives Latest Code Status on File Code Status Date Activated Date Inactivated Comments Full Code 01/16/2022 1:36 AM 01/20/2022 2:02 PM This order reflects the patients wishes and were consensually agreed upon. Question Answer Comments Discussion of Advance Directives occurred with: Patient Does the patient have a Living Will? No Does the patient have Health Care Power of Solar Installer? No Code Status History Code Status Date [...] and were consensually agreed upon. Care Teams Director Of [facility] Relationship Specialty Start Date End Date [facility]se [facility] [address] [facility] [address] P[facility] - General Family Medicine 10/20/16 documented as of this encounter
--- OUTSIDE RECORDS SUMMARY | 2024-03-23 03:20 | External Medical Summary ---
Author Name Unknown Address Unknown Organization [facility]:[address] [place] [address] Laboratory Report Ordering Provider Test Date Status MAMI BOSS 11/09/2023 19:33 Final Observation Date Value Abnormality Reference (Units ) Status WBC 11/10/2023 09:30 8.2 3.1-9.2 (10^3/M3) Final RBC 11/10/2023 09:30 4.64 3.70-5.50 (10^6/M3) Final Hemoglobin 11/10/2023 09:30 14.7 11.5-16.1 (GR/DL) Final HCT 11/10/2023 09:30 42.7 34.5-47.8 (%) Final MCV 11/10/2023 09:30 92.1 82.6-95.8 (CU MICR) Final MCH 11/10/2023 09:30 31.8 27.9-32.9 (KAYODE GR) Final MCHC 11/10/2023 09:30 34.5 32.6-35.4 (%) Final RDW 11/10/2023 09:30 13.6 11.4-14.6 (%) Final PLT 11/10/2023 09:30 530 Above high normal 140-350 (10^3/M3) Final MPV 11/10/2023 09:30 7.5 7.0-10.6 (CU MICR) Final Neutrophils/100 leukocytes in Blood 11/10/2023 09:30 51.3 40.0-75.0 (%) Final Lymphs % 11/10/2023 09:30 38.4 17.0-45.0 (%) Final Monos 11/10/2023 09:30 7.7 1.0-11.0 (%) Final %EOS 11/10/2023 09:30 2.0 0.0-6.0 (%) Final Basos 11/10/2023 09:30 0.6 0.0-2.0 (%) Final Neutrophils [#/volume] in [place] by Manual count 11/10/2023 09:30 4.2 1.5-8.0 (10^3/M3) Final Lymphs % 11/10/2023 09:30 3.1 0.8-3.2 (10^3/M3) Final Monos 11/10/2023 09:30 0.6 0.0-0.8 (10^3/M3) Final #EOS 11/10/2023 09:30 0.2 0.0-0.4 (10^3/m3) Final #BASO 11/10/2023 09:30 0.0 0.0-0.2 (10^3/m3) Final Performing Location [facility] [address] [place] [address]
--- OUTSIDE RECORDS SUMMARY | 2024-03-23 03:20 | External Medical Summary | Summary of Care ---
Author Name Unknown Organization [facility] Address [address] [place] [address] Phone [phone] Care Team Providers Care Lime Mixer Name Role Phone Laura Tse MD Primary Care Provider + Reason for Referral * (Within 10 days (routine)) - Authorized Specialty Diagnoses / Procedures Referred By Power hodges Referred To Contact Laboratory Diagnoses Thrombocytosis Procedures MYGENVAR MYELOPROLIFERATIVE PANEL, NEXT GENERATION SEQUENCING Ej Krishnamurthy MD [address] [place] [address] Referral ID Status Reason Start Date Expiration Date V isits Requested Visits Authorized [id number] Authorized 11/13/2023 999 999 Reason for Visit * Reason Onset Date Comments Encounter Created in Error 11/16/2023 * Evaluate & Treat - Unlimited Visits (Within 10 days (routine)) - Authorized Specialty Diagnoses / Procedures Referred By Power hodges Referred To Contact Hematology/Oncology / Hematology Oncology Diagnoses Other thrombocytosis Koki Whitten PA-C [address] [place] [address] Referral ID Status Reason Start Date Expiration Date Visits Requested Visits Authorized [id number] Authorized Specialty Services Required 11/06/2023 999 999 Encounter Details Date Type Department Care Team (Late st Contact Info) Description 11/13/2023 1:30 PM EDT Office Visit Hematology/Oncology, [facility] [address] [place] [address] Ej Krishnamurthy MD [address] [place] [address] [place] [id number] Encounter created in error Allergies Active Allergy Reactions Criticality Noted Date Comments Erythromycin 01/09/2002 GI UPSET documented as of this encounter (statuses as of 11/16/2023) Medications Medication Sig Dispensed Refills Start Date [...] as of this encounter (statuses as of 11/16/2023) Active Problems Problem Noted Date Diagnosed Date [...] as of this encounter (statuses as of 11/16/2023) Resolved Problems Problem Noted Date Diagnosed Date Resolved Date Encounter for supervision of other normal 02/27/2003 11/14/2003 Overview: ICD-10 update of inactive term Constipation 11/14/2003 Overview: ICD-10 update of inactive term URIN TRACT INFECTION NOS 08/2004 documented as of this encounter (statuses as of 11/16/2023) Immunizations Name Administration Dates Next Due TD, [...] on file documented as of this encounter Progress Notes * Ej Krishnamurthy MD - 11/13/2023 1:30 PM EDT Outpatient Consult Note Data Source: Patient, Epic record. 11/13/2023 1:30 p.m. 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 Past Medical History: Diagnosis Date Abnormal Papanicolaou smear of vagina and vaginal HPV 09/04/1998 HGSIL Anxiety Depressive disorder, not elsewhere classified Dysthymic disorder Esophageal reflux Fibromyalgia Hyperlipidemia Other vitamin B12 deficiency anemia Vitamin D deficiency Current Outpatient Medications Medication Sig Dispense Refill clonazePAM (KLONOPIN) 1 MG Tablet Take 1 Tablet by mouth in the morning and 1 Tablet before bedtime. Linzess 290 MCG Oral Capsule Take 290 mcg by mouth daily before breakfast. (Patient not taking: Reported on 01/16/2022 ) Famotidine 40 MG Oral Tablet (PEPCID) Take 40 mg by mouth daily. (Patient not taking: Reported on 02/22/2023) Ondansetron 4 MG Oral Tablet Disintegrating Place 1 Tablet on tongue every 8 hours as needed for Nausea. dissolve on tongue. 20 Tablet 0 Potassium Chloride ER 20 MEQ Oral Tablet Extended Release Take by mouth 20 mEq 2 times a day . (Patient not taking: Reported on 02/22/2023) Docusate Sodium 50 MG Oral Capsule (Colace) Take by mouth daily . (Patient not taking: Reported on 02/22/2023) Aspirin 81 MG Oral Capsule Take by mouth 1 Capsule daily . (Patient not taking: Reported on 02/22/2023) traZODone HCl 50 MG Oral Tablet (Desyrel) Take by mouth 1 Tablet at bedtime as needed, may repeat once for Sleep. 10 Tablet 0 buPROPion HCl ER (SR) 100 MG Oral Tablet Extended Release 12 Hour (Wellbutrin SR) Take by mouth 1 Tablet in the morning. Do not start before January 21, 2022. 5 Tablet 0 QUEtiapine Fumarate 200 MG Oral Tablet (SEROquel) Take by mouth 1 Tablet before bedtime. 5 Tablet 0 Magnesium Oxide 400 MG Oral Capsule Take by mouth 1 Capsule in the morning. (Patient not taking: Reported on 02/22/2023) 30 Capsule 5 Riboflavin 400 MG Oral Tablet Take by mouth 1 Tablet in the morning. (Patient not taking: Reported on 02/22/2023) 30 Tablet 5 Desvenlafaxine Succinate ER 100 MG Oral Tablet Extended Release 24 Hour Take 1 Tablet by mouth in the morning. Gabapentin 300 MG Oral Capsule (Neurontin) Take 1 Capsule by mouth in the morning and 1 Capsule at noon and 1 Capsule before bedtime. Vitron-C 65-125 MG Oral Tablet (Iron-Vitamin C 65-125 mg per tab) Take 1 Tablet by mouth in the morning. Methylphenidate HCl 20 MG Oral Tablet (Ritalin) Take 1 Tablet by mouth in the morning and 1 Tablet before bedtime. No current facility-administered medications for this visit. Social History Socioeconomic History Marital status: Spouse name: Not on file Number of children: 3 Years of education: Not on file Highest education level: Not on file Occupational History Not on file Tobacco Use Smoking status: Never Smokeless tobacco: Never Tobacco comments: DENIES Vaping Use Vaping Use: Never used Substance and Sexual Activity Alcohol use: No Comment: rare Drug use: No Comment: DENIES Sexual activity: Yes Partners: Male Other Topics Concern Service Not Asked Blood Transfusions Not Asked Caffeine Concern Yes Comment: on average 1 cup regular coffee daily Occupational Exposure Not Asked Hobby Hazards Not Asked Sleep Concern Not Asked Stress Concern Not Asked Weight Concern Not Asked Special Diet Not Asked Back Care Not Asked Exercise Not Asked Bike Helmet Not Asked Seat Belt Yes Self-Exams Not Asked Social History Narrative Lives with spouse and daughters. Pets include 1 dog and 1 cat. Home is smoke free. Social Determinants of Health Financial Resource Strain: Not on file Food Insecurity: Not on file Transportation Needs: Not on file Physical Activity: Not on file Stress: Not on file Social Connections: Not on file Intimate Partner Violence: Not on file Housing Stability: Not on file Family History Problem Relation Age of Onset Diabetes Mother diet controlled Cancer Father Other (HEART ATTACH) Other Hypertension Other Diabetes Other Other (ADDICTION) Other ALCOHOL Other (Other) Other unaware of any family hx of skin related ca or disease REVIEW OF SYSTEMS: General: No Fever, chills, night sweats, or weight loss. HEENT: No change in visual acuity, blurred or double vision. No epistaxis, facial pain, nasal discharge or change in hearing. Denies dysphagia, no muscosal ulceration, or sores noted. Cardiovascular: No chest pain, BERNAL, or palpitations Respiratory: No shortness of breath, cough, hemoptysis, or pleuritic chest pain Gastrointestinal: No abdominal pain, nausea, vomiting, diarrhea, rectal pain or bleeding Genitourinary: Denies Hematuria or dysuria Musculoskeletal: No bone pain Skin: No skin rash or lesions noted Neurologic: No numbness, weakness, neuropathic pain or change in cognitive function Psychiatric: No vegetative signs of depression Endocrine: No symptoms of hypothyroidism or hyperglycemia Hematologic: No bleeding or lymph nodes noted As mentioned above, all other systems were reviewed in full and are unremarkable. Review of patient's allergies indicates: Allergen Reactions Erythromycin GI UPSET PHYSICAL EXAMINATION: General Appearance: Healthy appearing patient in no acute distress LMP (LMP Unknown) Vitals were reviewed. HEENT: No oral or pharyngeal masses, ulceration or thrush noted, no sinus tenderness. Neck is supple with no thyromegaly or JVD noted. Lymph Nodes: No lymphadenopathy noted in the occipital, pre and post auricular, cervical, supra andinfraclavicular, axillary, epitrochlear, inguinal, and popliteal region. Breasts: No palpable masses, nipple discharge or skin retraction Lungs/Thorax: Clear to auscultation, no accessory muscles of respiration being used. Heart: Regular rate and rhythm, normal S1, S2, no appreciable murmurs, rubs, gallops Abdomen: Soft, nontender, bowel sounds present, no appreciable hepatosplenomegaly, no palpable masses Extremeties: Good pulses bilaterally, no peripheral edema. Skin: Normal skin tone with no rash, petechiae, ecchymosis noted. Musculoskeletal: No pain on palpation over bony prominence, no edema, no evidence of gout, no jointor bony deformity Neurologic: Grossly intact LABS: Latest Reference Range & Units 11/09/23 19:33 CBC WITH WBC DIFFERENTIAL Rpt ! WBC-OUTSIDE LAB 3.1 - 9.2 10^3/M3 8.2 RBC-OUTSIDE LAB 3.70 - 5.50 10^6/M3 4.64 PLT-OUTSIDE LAB 140 - 350 10^3/M3 530 (H) BASOPHILS ABSOLUTE-OUTSIDE LAB 0.0 - 0.2 10^3/m3 0.0 Latest Reference Range & Units 01/09/23 15:13 09/06/23 11:01 VITAMIN C95-MIPBMAI LAB 230 - 1050 pg/mL 160 (L) 169 (L) Latest Reference Range & Units 02/17/20 11:16 Folic Acid >4.5 ng/mL 8.6 RADIOLOGY: IMPRESSION: MRI liver 11/19/2021 1. Two areas of mild enhancement in the liver seen only on arterial phase of imaging are likely transient hepatic intensity defects. Correlation with previous outside imaging is recommended. COLONOSCOPY 03/02/2023 Impression: - The examined portion of the ileum was normal. - Two 2 to 4 mm polyps in the descending colon, removed with a cold snare. Resected and retrieved. - Diverticulosis in the sigmoid colon. - Internal hemorrhoids. - The examination was otherwise normal on direct and retroflexion views PATHOLOGY: ASSESSMENT: 1. 2. Gastroesophageal reflux disease. 3. Fibromyalgia. 4. Vitamin B12 deficiency 01/09/2023 at which time ferritin was 12.5 with a normal hemoglobin. 5. Status post carpal tunnel neuroplasty. 6. History of kidney stones. PLAN: Ej Krishnamurthy MD This encounter was created in error. 11/16/2023, 5:52 AM, Ej Krishnamurthy MD documented in this encounter Plan of Treatment Scheduled Orders Name Type Priority Associated Diagnoses Orde r Schedule CBC WITH WBC DIFFERENTIAL Lab STAT Thrombocytosis Expected: 11/13/2023, Expires: 11/08/2024 COMPREHENSIVE METABOLIC PANEL Lab STAT Thrombocytosis Expected: 11/13/2023, Expires: 11/08/2024 LD Lab STAT Thrombocytosis Expected: 11/13/2023, Expires: 11/08/2024 IRON SCREEN, INCLUDING TIBC Lab STAT Thrombocytosis Expected: 11/13/2023, Expires: 11/08/2024 FERRITIN Lab STAT Thrombocytosis Expected: 11/13/2023, Expires: 11/08/2024 MYGENVAR MYELOPROLIFERATIVE PANEL, NEXT GENERATION SEQUENCING Lab STAT Thrombocytosis Expected: 11/13/2023, Expires: 11/08/2024 FECAL OCCULT BLOOD, EIA Lab STAT Thrombocytosis Expected: 11/13/2023, Expires: 11/12/2024 PARIETAL CELL ANTIBODY, YAYA Lab STAT Vitamin B12 deficiency Expected: 11/13/2023, Expires: 11/12/2024 INTRINSIC FACTOR BLOCKING ANTIBODY Lab STAT Vitamin B12 deficiency Expected: 11/13/2023, Expires: 11/12/2024 Scheduled Procedures Name Priority Associated Diagnoses Date/Ti [...] as of this encounter Visit Diagnoses Diagnosis Thrombocytosis- Primary Essential thrombocythemia Vitamin B12 deficiency Other B-complex deficiencies Encounter Created In Error documented in this encounter Advance Directives Latest Code Status on File Code Status Date Activated Date Inactivated Comments Full Code 01/16/2022 1:36 AM 01/20/2022 2:02 PM This order reflects the patients wishes and were consensually agreed upon. Question Answer Comments Discussion of Advance Directives occurred with: Patient Does the patient have a Living Will? No Does the patient have Health Care Power of Operating Engineer Apprentice? No Code Status History Code Status Date [...] and were consensually agreed upon. Care Teams Lime Mixer Relationship Specialty Start Date End Date Laura Tse MD [address] [facility] [place] [id number] PCP - General Family Medicine 10/20/16 documented as of this encounter
--- OUTSIDE RECORDS SUMMARY | 2024-03-23 03:20 | External Medical Summary ---
Author Name Unknown Address Unknown Organization K1F:[facility] [address] [place] [address] Laboratory Report Ordering Provider Test Date Status KARLIDEANNA DOWNING 12/28/2023 14:52:49 Final Observation Date Value Abnormality Reference (Units ) Status BUN 12/28/2023 14:52:49 16 6-20 (mg/dL) Final Creatinine 12/28/2023 14:52:49 0.8 0.5-1.0 (mg/dL) Final Glomerular filtration rate/1.73 sq M.predicted [Volume Rate/Area] in Serum, Plasma or Blood by Creatinine-based formula (CKD-EPI) 12/28/2023 14:52:49 86 >=60 (mL/min) Final eGFR is calculated based on the CKD-EPI 2020 equation Sodium 12/28/2023 14:52:49 136 135-146 (m mol/L) Final Potassium 12/28/2023 14:52:49 2.3 Below lower panic li mits 3.5-5.1 (mmol/L) Final Results rechecked. Cl 12/28/2023 14:52:49 96 Below low normal 98- 107 (mmol/L) Final CO2 12/28/2023 14:52:49 26 22-32 (mmo l/L) Final Anion gap 12/28/2023 14:52:49 14 7-15 (mmol /L) Final Glucose 12/28/2023 14:52:49 119 70-120 (mg /dL) Final Albumin 12/28/2023 14:52:49 4.3 3.8-5.0 (g /dL) Final AST (Aspartate aminotransferase) 12/28/2023 14:52:49 25 10-35 (U/L) Fin al Result may be falsely elevat ed due to hemolysis. Alk Phos 12/28/2023 14:52:49 105 35-130 (U/ L) Final Bilirubin, Total 12/28/2023 14:52:49 0.4 <=1 .2 (mg/dL) Final Calcium 12/28/2023 14:52:49 9.5 8.4-10.2 ( mg/dL) Final Protein 12/28/2023 14:52:49 7.2 6.0-8.3 (g /dL) Final ALT (Alanine aminotransferase) 12/28/2023 14:52:49 14 10-35 (U/L) Final Performing Location [facility] [place] [address]
--- OUTSIDE RECORDS SUMMARY | 2024-03-23 03:21 | External Medical Summary ---
Author Name Unknown Address Unknown Organization K1C:[facility] [address] [place] [address] Laboratory Report Ordering Provider Test Date Status MAMI BOSS 11/01/2023 15:09 Final Observation Date Value Abnormality Reference (Units) Status COLOR 11/02/2023 10:07 LIGHT-ORANGE Abnormal Final APPEARANCE 11/02/2023 10:07 TURBID Abnormal CLEAR Final SPEC.GRAV. 11/02/2023 10:07 1.030 Above high normal 1.005-1.025 Final LEUKOCYTES 11/02/2023 10:07 LARGE Abnormal NEGATIVE Final NITRITE 11/02/2023 10:07 POSITIVE Abnormal NEGATIVE Final PH 11/02/2023 10:07 6.0 6.0-7.5 Final PROTEIN 11/02/2023 10:07 SMALL Abnormal NEGATIVE Final Glucose [Presence] in Urine 11/02/2023 10:07 NEGATIVE NEGATIVE Final KETONE 11/02/2023 10:07 NEGATIVE NEGATIVE Final UROBILINOGEN 11/02/2023 10:07 NORMAL NORMAL (E.U./DL) Final BILIRUBIN 11/02/2023 10:07 NEGATIVE NEGATIVE Final BLOOD 11/02/2023 10:07 NEGATIVE NEGATIVE Final WBC, Urine 11/02/2023 10:07 TNTC Abnormal 0-5/HPF (/HPF) Final RBC-U 11/02/2023 10:07 0-2 0-5/HPF (/HPF) Final BACTERIA 11/02/2023 10:07 TRACE NONE SEEN Final HYALINE CASTS 11/02/2023 10:07 21-50 Abnormal NONE SEEN (/LPF) Final SQUAMOUS 11/02/2023 10:07 11-15 Abnormal 0-5/HPF (/HPF) Final CAOX CRYSTAL 11/02/2023 10:07 1+ Abnormal NOT PRESENT (/HPF) Final Performing Location [facility] [address] [place] [address]
--- OUTSIDE RECORDS SUMMARY | 2024-03-23 03:21 | External Medical Summary | Continuity of Care Document ---
Author Name Unknown Organization [facility] Address [address] [facility], [place] [address] Phone [phone] Problems Active Problems Provider Date Moderate recurrent [...] SIG Qnty Indications Order ing Provider Date Vxtivll5or Tablets 1 by mouth at bedtime. 30tabs F51.05 Laura Tse MD, PhD 4 Rexulti0.5mg Tablets 1 by mouth daily. 30tabs F33.1 Laura Tse MD, PhD 4 Hnbqyag97he Tablets 1 tablet by mouth three times a day. ongoing therapy. 30tabs F90.0 Laura Tse MD, PhD 4 Ifieurix039ea Capsules 1 by mouth twice a day x 5 days with food 10caps R30.0 Laura Tse MD, PhD 4 - 4 Levothyroxine Dlijgx78rdw Tablets 1 by mouth daily on an empty stomach. 30tabs Laura Tse MD, PhD [address] 1 by mouth daily. Take on empty stomach 30 minutes prior to eating. 30caps K21.9 Laura Tse MD, PhD 4 Desvenlafaxine Succinate VO757jz Tablets ER 24HR Take One Tablet By Mouth Every Day With Food 30tabs F41.1 Laura Tse MD, PhD 3 Pcqsja-A18-162ub Tablets 1 by mouth daily. 90tabs Laura Tse MD, PhD 3 Vitamin D (Ergocalciferol)1.25mg (14812 Ut) Capsules Take One Capsule By Mouth Once Weekly 12caps Laura Tse MD, PhD 3 Prochlorperazine Fqqxetn9gf Tablets 1 by mouth every 8 hours as needed for nausea. 10tabs Laura Tse MD, PhD 3 Yxzpfnpbxx119vd Capsules take 1 capsule by mouth 2 hours before bedtime. 30caps G25.81 Laura Tse MD, PhD 3 Quetiapine Cttzokcw212yf Tablets take one (1) tablet by mouth at bedtime 30tabs Laura Tse MD, PhD 1 Bubkylk890zse Capsules take 1 capsule by mouth daily 90caps K59.00 Laura Tse MD, PhD 1 3ML Luer Lock Safety Syringes/3ML/25G X 1"25G X 1" 3 ML Misc use to administer b12 12units Laura Tse MD, PhD 0 Lvhkqxmgqpkdfx3766qti/ ML Solution inject 1ml (1000mcg) intramuscularly every week x 4 weeks, then once monthly. 30ml Laura Tse MD, PhD 0 Vieyhvghym74zx Tablets 1 by mouth every day 30tabs K21 .9 Laura Tse MD, PhD 0 Kdmuycsahz9ak Tablets 1 by mouth 2 times a day. 60tabs Riccardo Nickerson, DO 0 History Medications Focalin2.5mg Tablets 1 by mouth twice daily. Initial therapy. 14tabs F90.0 Laura Tse MD, PhD 09/06/2023 - 09/14/2023 Buspirone WVV56zd Tablets 1 by mouth twice a day [...] Vitamin B-12 Up To 1000 mcgInjection Laura modoy MD, PhD 07/20/2017 Injection Vitamin B-12 Up [...] Code Status Date Vaccine Reaction Lot # 59024 Given 01/13/2021 TB Intradermal Test 0 mm - negative, read @ 4:32pm [id number] Given 04/17/2019 TB Intradermal Test 0.0MM read by Salvador Bonilla LPN at 11:41AM [id number] Given 09/02/2014 TB Intradermal Test 0 mm reaction. Negative read by RF on 09/05/14 at 11:36am. [id number] Refused 09/06/2023 Sarscov2 Vaccin e 50 mcg/0.5 ML For Im Use 12 Yrs And Older 18806 Refused 04/11/2022 Influenza Virus Vaccine, Quadrivalent, Split Virus, Im Use 6-35 47918 Refused 09/09/2021 Moderna Sars-Co v-2 (Cov-19) vacc,100 mcg/ 0.5 mL 12Y+EMR Doc Only 10698 Refused 09/09/2021 Influenza Virus Vaccine, Quadrivalent (Cciiv4), Derived From Cell 80741 Refused 05/27/2019 Influenza Virus Vaccine, Quadrivalent, Im Use 94647 Refused 05/31/2018 Influenza Virus Vaccine, Quadrivalent, Im Use 15367 Refused 08/18/2017 Tdap (Tetanus, diphtheria & acel. pertussis) Adacel or Boostrix 61317 Refused 07/20/2017 Influenza Virus Vaccine, Quadrivalent, Im Use 17823 Refused 07/06/2016 Influenza Virus Vaccine, Quadrivalent, Im Use 24365 Refused 10/06/2015 Influenza Virus Vaccine, Quadrivalent, Im Use 41402 Refused 09/09/2014 Influenza Virus Vaccine, Quadrivalent, Im [...] 5'3" BMI (Body Mass Index) 23.7 kg/m2 Divide Body Weight 115 lb Results Test Acquired Date Facility Test Result H/L Range N ote Urinalysis 11/01/2023 [facility] [address] [place], [place] [id number] [phone] Color LIGHT-ORANGE Abnormal Appearance TURBID Abnormal Clear [...] /HPF Abnormal Not Present Urine Culture 11/01/2023 [facility] [address] [place], [place] [id number] [phone] Urine Source URINE Total Col Count >100,000 COL/CC Urine Isolate#1 11/01/2023 [facility] [address] [place] [address] [phone] Isolate #1 Escherichia coli 1 Amox/K Clav <=8/4 S Ampicillin <=8 S Aztreonam <=4 S Cefazolin <=2 S Cefepime <=2 S Ceftriaxone <=1 S Ciprofloxacin <=0.25 S Gentamicin <=2 S Nitrofurantoin <=32 S Tetracycline <=4 S Tobramycin <=2 S Trimeth/Sulfa <=2/38 S Meropenem <=1 S Laboratory test finding 11/01/2023 [facility] [address] [place] [address] [phone] TSH 0.96 uIU/mL 0.50-6.00 FRT4 0.79 ng/dL 0.75-1.54 Laboratory test finding 09/06/2023 [facility] [address] [place] [address] [phone] FRT4 0.51 ng/dL Low 0.75-1.54 TSH 1.46 uIU/mL 0.50-6.00 Vitd-25Oh 19 ng/mL Low 30-100 VB12 169 pg/mL Low 230-1050 CBC W/Diff 09/06/2023 [facility] [address] [place] [address] [phone] WBC 6.8 10^3/M3 3.1-9.2 RBC 4.19 10^6/M3 3.70-5.50 HGB 13.1 GR/DL 11.5-16.1 HCT 38.2 % 34.5-47.8 MCV 91.0 CUMICR 82.6-95.8 MCH 31.3 PICOGR 27.9-32.9 MCHC 34.4 % 32.6-35.4 RDW 13.7 % 11.4-14.6 PLT 464 10^3/M3 High 140-350 MPV 7.1 CUMICR 7.0-10.6 %Neut 44.1 % 40.0-75.0 %Lymph 44.7 % 17.0-45.0 %Love 7.8 % 1.0-11.0 %Eos 2.3 % 0.0-6.0 %Baso 1.1 % 0.0-2.0 #Neut 3.0 10^3/M3 1.5-8.0 #Lymph 3.1 10^3/M3 0.8-3.2 #Love 0.5 10^3/M3 0.0-0.8 #Eos 0.2 10^3/m3 0.0-0.4 #Baso 0.1 10^3/m3 0.0-0.2 Comp. Met 09/06/2023 [facility] [address] [place] [address] [phone] Glucose 90 mg/dL 70-110 BUN 12 mg/dL [...] coli Procedures Date Code Description Status 11/01/2023 27858 Venipuncture Routine Complet ed 09/06/2023 G9920 Scrning Perf And Negative Co mpleted 09/06/2023 G2211 Continuation of care e/m vis it add on Completed 09/06/2023 59226 Venipuncture Routine Complet ed 03/02/2023 34602186 Colonoscopy Completed 04/22/2020 [id number] Mammogram Completed Medical Devices Description No Information Available Encounters Type Date Location Provider Dx Diagnosis Office Visit 11/01/2023 2:30p [facility] Koki Whitten PA-C F41.1 Generalized anxiety disorder F33.1 Major depressive dis order, recurrent, moderate 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, 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 disorder E03.9 Hypothyroidism, unsp ecified R30.0 Dysuria D75.838 Other thrombocytosis Office Visit 09/06/2023 10:00a [facility] Koki Phanr, [facility] F41.1 Generalized anxiety disorder F33.1 Major depressive dis order, recurrent, moderate 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, predom inattentive type E03.9 Hypothyroidism, unsp ecified E55.9 Vitamin D deficiency , unspecified E53.9 Vitamin B deficiency , unspecified K21.9 Gastro-esophageal re flux disease without esophagitis G47.00 Insomnia, unspecifie d Z60.8 Other problems relat ed to social environment Z79.899 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 Assessments Date Code Description Provider 11/01/2023 F41.1 Generalized anxiety disorder Koki Whitten, [facility] 11/01/2023 F33.1 Major depressive disorder, recurrent, moderate [facility]legas[facility], [facility] 11/01/2023 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, predominantly inat [facility] Villegasr, [facility] 11/01/2023 F51.05 Insomnia due to other mental disorder [facility] Whitten, [facility] 11/01/2023 E03.9 Hypothyroidism, unspecified [facility] Villegasr, [facility] 11/01/2023 R30.0 Dysuria [facility] Wh[facility], [facility] 11/01/2023 D75.838 Other thrombocytosis [facility], [facility] 09/06/2023 F41.1 Generalized anxiety disorder [facility], [facility] 09/06/2023 F33.1 Major depressive disorder, recurrent, moderate [facility] Stoner, [facility] 09/06/2023 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, predominantly inat [facility] Villegasr, [facility] 09/06/2023 E03.9 Hypothyroidism, unspecified [facility] Villegasr, [facility] 09/06/2023 E55.9 Vitamin D deficiency, unspec ified Koki Villegasr, [facility] 09/06/2023 E53.9 Vitamin B deficiency, unspec ified [facility]legasr, [facility] 09/06/2023 K21.9 Gastro-esophagea l reflux disease without esophagitis Koki VillegasPAVEL starr 09/06/2023 G47.00 Insomnia, unspecified Mona Whitten PA-C 09/06/2023 Z60.8 Other problems related to so cial environment Koki Whitten PA-C 09/06/2023 Z79.899 Other retirement (current) dr shakira Whitten PA-C Plan of Treatment Future Appointment(s):* 12/04/2023 4:30 pm - Koki Whitten PA-C at [facility] 11/01/2023 - Koki Whitten PA-C* F41.1 Generalized [...] Mental Status Description No Information Available Referrals Description No Information Available
--- OUTSIDE RECORDS SUMMARY | 2024-03-23 03:21 | External Medical Summary | Continuity of Care Document ---
Author Name Unknown Organization [facility] Address [address] [facility], [place] [address] Phone [phone] Problems Active Problems Provider Date Moderate recurrent [...] SIG Qnty Indications Order ing Provider Date Gnmyaih0ml Tablets 1 by mouth at bedtime. 30tabs F51.05 Laura Tse MD, PhD 4 Rexulti0.5mg Tablets 1 by mouth daily. 30tabs F33.1 Laura Tse MD, PhD 4 Wkuuvlk97iw Tablets 1 tablet by mouth three times a day. ongoing therapy. 30tabs F90.0 Laura Tse MD, PhD 4 Wvuhgzqy159pb Capsules 1 by mouth twice a day x 5 days with food 10caps R30.0 Laura Tse MD, PhD 4 - 4 Levothyroxine Vdjsuw09uyq Tablets 1 by mouth daily on an empty stomach. 30tabs Laura Tse MD, PhD [address] 1 by mouth daily. Take on empty stomach 30 minutes prior to eating. 30caps K21.9 Laura Tse MD, PhD 4 Desvenlafaxine Succinate EB796oi Tablets ER 24HR Take One Tablet By Mouth Every Day With Food 30tabs F41.1 Laura Tse MD, PhD 3 Ybhbvn-X40-864aj Tablets 1 by mouth daily. 90tabs Laura Tse MD, PhD 3 Vitamin D (Ergocalciferol)1.25mg (15912 Ut) Capsules Take One Capsule By Mouth Once Weekly 12caps Laura Tse MD, PhD 3 Prochlorperazine Wafywax9ad Tablets 1 by mouth every 8 hours as needed for nausea. 10tabs Laura Tse MD, PhD 3 Qabxfrxdun912ag Capsules take 1 capsule by mouth 2 hours before bedtime. 30caps G25.81 Laura Tse MD, PhD 3 Quetiapine Rmqvjofl927qp Tablets take one (1) tablet by mouth at bedtime 30tabs Laura Tse MD, PhD 1 Xetmbma265wfx Capsules take 1 capsule by mouth daily 90caps K59.00 Laura Tse MD, PhD 1 3ML Luer Lock Safety Syringes/3ML/25G X 1"25G X 1" 3 ML Misc use to administer b12 12units Laura Tse MD, PhD 0 Wvkbmjfbdanfpy3293vls/ ML Solution inject 1ml (1000mcg) intramuscularly every week x 4 weeks, then once monthly. 30ml Laura Tse MD, PhD 0 Owdywenrsz56ju Tablets 1 by mouth every day 30tabs K21 .9 Laura Tse MD, PhD 0 Hxgtqapprd8mh Tablets 1 by mouth 2 times a day. 60tabs Riccardo Nickerson, DO 0 History Medications Focalin2.5mg Tablets 1 by mouth twice daily. Initial therapy. 14tabs F90.0 Laura Tse MD, PhD 09/06/2023 - 09/14/2023 Buspirone JXT75lt Tablets 1 by mouth twice a day [...] Code Status Date Vaccine Reaction Lot # [id number] Given 01/13/2021 TB Intradermal Test 0 mm - negative, read @ 4:32pm [id number] 12215 Given 04/17/2019 TB Intradermal Test 0.0MM read by Salvador Bonilla LPN at 11:41AM [id number] 34669 Given 09/02/2014 TB Intradermal Test 0 mm reaction. Negative read by RF on 09/05/14 at 11:36am. [id number] 98215 Refused 09/06/2023 Sarscov2 Vaccin e 50 mcg/0.5 ML For Im Use 12 Yrs And Older 79389 Refused 04/11/2022 Influenza Virus Vaccine, Quadrivalent, Split Virus, Im Use 6-35 45121 Refused 09/09/2021 Moderna Sars-Co v-2 (Cov-19) vacc,100 mcg/ 0.5 mL 12Y+EMR Doc Only 41420 Refused 09/09/2021 Influenza Virus Vaccine, Quadrivalent (Cciiv4), Derived From Cell 56825 Refused 05/27/2019 Influenza Virus Vaccine, Quadrivalent, Im Use 66986 Refused 05/31/2018 Influenza Virus Vaccine, Quadrivalent, Im Use 87617 Refused 08/18/2017 Tdap (Tetanus, diphtheria & acel. pertussis) Adacel or Boostrix 69879 Refused 07/20/2017 Influenza Virus Vaccine, Quadrivalent, Im Use 93404 Refused 07/06/2016 Influenza Virus Vaccine, Quadrivalent, Im Use 59185 Refused 10/06/2015 Influenza Virus Vaccine, Quadrivalent, Im Use 45527 Refused 09/09/2014 Influenza Virus Vaccine, Quadrivalent, Im [...] 5'3" BMI (Body Mass Index) 23.7 kg/m2 [place] Body Weight 115 lb Results Test Acquired Date Facility Test Result H/L Range N ote Urinalysis 11/01/2023 [facility]. [address] [place], [place] [id number] [phone] Color LIGHT-ORANGE Abnormal Appearance TURBID Abnormal Clear [...] /HPF Abnormal Not Present Urine Culture 11/01/2023 [facility] 1 [place], [place] [id number] [phone] Urine Source URINE Total Col Count >100,000 COL/CC Urine Isolate#1 11/01/2023 [facility] 1 [place] [address] [phone] Isolate #1 Escherichia coli 1 Amox/K Clav <=8/4 S Ampicillin <=8 S Aztreonam <=4 S Cefazolin <=2 S Cefepime <=2 S Ceftriaxone <=1 S Ciprofloxacin <=0.25 S Gentamicin <=2 S Nitrofurantoin <=32 S Tetracycline <=4 S Tobramycin <=2 S Trimeth/Sulfa <=2/38 S Meropenem <=1 S Laboratory test finding 11/01/2023 [facility]. 1 [place] [address] [phone] TSH 0.96 uIU/mL 0.50-6.00 FRT4 0.79 ng/dL 0.75-1.54 Laboratory test finding 09/06/2023 [facility] 1 [place] [address] [phone] FRT4 0.51 ng/dL Low 0.75-1.54 TSH 1.46 uIU/mL 0.50-6.00 Vitd-25Oh 19 ng/mL Low 30-100 VB12 169 pg/mL Low 230-1050 CBC W/Diff 09/06/2023 [facility] 1 [place] [address] [phone] WBC 6.8 10^3/M3 3.1-9.2 RBC 4.19 10^6/M3 3.70-5.50 HGB 13.1 GR/DL 11.5-16.1 HCT 38.2 % 34.5-47.8 MCV 91.0 CUMICR 82.6-95.8 MCH 31.3 PICOGR 27.9-32.9 MCHC 34.4 % 32.6-35.4 RDW 13.7 % 11.4-14.6 PLT 464 10^3/M3 High 140-350 MPV 7.1 CUMICR 7.0-10.6 %Neut 44.1 % 40.0-75.0 %Lymph 44.7 % 17.0-45.0 %[place] 7.8 % 1.0-11.0 %Eos 2.3 % 0.0-6.0 %Baso 1.1 % 0.0-2.0 #Neut 3.0 10^3/M3 1.5-8.0 #Lymph 3.1 10^3/M3 0.8-3.2 #[place] 0.5 10^3/M3 0.0-0.8 #Eos 0.2 10^3/m3 0.0-0.4 #Baso 0.1 10^3/m3 0.0-0.2 Comp. Met 09/06/2023 [facility]. 1 [place] [address] [phone] Glucose 90 mg/dL 70-110 BUN 12 mg/dL [...] e/m vis it add on Completed 11/01/2023 10323 Venipuncture Routine Complet ed 09/06/2023 G9920 Scrning Perf And Negative Co mpleted 09/06/2023 G2211 Continuation of care e/m vis it add on Completed 09/06/2023 28263 Venipuncture Routine Complet ed 03/02/2023 [id number] Colonoscopy Completed 04/22/2020 [id number] Mammogram Completed Medical Devices Description No Information Available Encounters Type Date Location Provider Dx Diagnosis Office Visit 11/01/2023 2:30p [facility] Koki Whitten PA-C F41.1 Generalized anxiety disorder F33.1 Major depressive dis order, recurrent, moderate 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, 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 disorder E03.9 Hypothyroidism, unsp ecified R30.0 Dysuria D75.838 Other thrombocytosis Office Visit 09/06/2023 10:00a [facility] Koki Graf, [facility] F41.1 Generalized anxiety disorder F33.1 Major depressive dis order, recurrent, moderate 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, predom inattentive type E03.9 Hypothyroidism, unsp ecified E55.9 Vitamin D deficiency , unspecified E53.9 Vitamin B deficiency , unspecified K21.9 Gastro-esophageal re flux disease without esophagitis G47.00 Insomnia, unspecifie d Z60.8 Other problems relat ed to social environment Z79.899 Other detention (cur rent) drug therapy Assessments Date Code Description Provider 11/01/2023 F41.1 Generalized anxiety disorder [facility] 11/01/2023 F33.1 Major depressive disorder, recurrent, moderate Koki Stoner, [facility] 11/01/2023 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, predominantly inat Koki Villegasr, [facility] 11/01/2023 F51.05 Insomnia due to other mental disorder Koki Villegasr, [facility] 11/01/2023 E03.9 Hypothyroidism, unspecified Koki Stoner, [facility] 11/01/2023 R30.0 Dysuria Koki Whitten, [facility] 11/01/2023 D75.838 Other thrombocytosis Koki Villegasr, [facility] 09/06/2023 F41.1 Generalized anxiety disorder Koki Villegasr, [facility] 09/06/2023 F33.1 Major depressive disorder, recurrent, moderate Koki Stoner, [facility] 09/06/2023 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, predominantly inat Koki Stoner, [facility] 09/06/2023 E03.9 Hypothyroidism, unspecified Koki Stoner, [facility] 09/06/2023 E55.9 Vitamin D deficiency, unspec ified Koki Stoner, [facility] 09/06/2023 E53.9 Vitamin B deficiency, unspec ified Koki Stoner, [facility] 09/06/2023 K21.9 Gastro-esophagea l reflux disease without esophagitis Koki Whitten PA-C 09/06/2023 G47.00 Insomnia, unspecified Mona Whitten PA-C 09/06/2023 Z60.8 Other problems related to so cial environment Koki Whitten PA-C 09/06/2023 Z79.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
--- OUTSIDE RECORDS SUMMARY | 2024-03-23 03:21 | External Medical Summary ---
Author Name Unknown Address Unknown Organization K1C:[facility] [address] [place] [address] Laboratory Report Ordering Provider Test Date Status FRANCIS BOSSGavino 11/01/2023 15:05 Final Observation Date Value Abnormality Reference (Units ) Status TSH 11/02/2023 10:14 0.96 0.50-6.00 (uI U/mL) Final Performing Location [facility] [address] [place] [id number]
--- OUTSIDE RECORDS SUMMARY | 2024-03-23 03:21 | External Medical Summary | Continuity of Care Document ---
Author Name Unknown Organization [facility] Address [address] [facility], [place] [address] Phone [phone] Problems Active Problems Provider Date Moderate recurrent [...] SIG Qnty Indications Order ing Provider Date Amdrakw9mp Tablets 1 by mouth at bedtime. 30tabs F51.05 Laura sTe MD, PhD 4 Rexulti0.5mg Tablets 1 by mouth daily. 30tabs F33.1 Laura Tse MD, PhD 4 Xltnyko70kn Tablets 1 tablet by mouth three times a day. ongoing therapy. 30tabs F90.0 Laura Tse MD, PhD 4 Gmmlgbez257jl Capsules 1 by mouth twice a day x 5 days with food 10caps R30.0 Laura Tse MD, PhD 4 - 4 Levothyroxine Jnkhue06dnz Tablets 1 by mouth daily on an empty stomach. 30tabs Laura Tse MD, PhD [address] 1 by mouth daily. Take on empty stomach 30 minutes prior to eating. 30caps K21.9 Laura Tse MD, PhD 4 Desvenlafaxine Succinate IR328bl Tablets ER 24HR Take One Tablet By Mouth Every Day With Food 30tabs F41.1 Laura Tse MD, PhD 3 Asrggf-C65-992xy Tablets 1 by mouth daily. 90tabs Laura Tse MD, PhD 3 Vitamin D (Ergocalciferol)1.25mg (00712 Ut) Capsules Take One Capsule By Mouth Once Weekly 12caps Laura Tse MD, PhD 3 Prochlorperazine Byloqli8gd Tablets 1 by mouth every 8 hours as needed for nausea. 10tabs Laura Tse MD, PhD 3 Fwyrcdingr529mi Capsules take 1 capsule by mouth 2 hours before bedtime. 30caps G25.81 Laura Tse MD, PhD 3 Quetiapine Yyuwpjdq266fn Tablets take one (1) tablet by mouth at bedtime 30tabs Laura Tse MD, PhD 1 Felptxg717qyt Capsules take 1 capsule by mouth daily 90caps K59.00 Laura Tse MD, PhD 1 3ML Luer Lock Safety Syringes/3ML/25G X 1"25G X 1" 3 ML Misc use to administer b12 12units Laura Tse MD, PhD 0 Rwyiockrbwdqdj8402cxj/ ML Solution inject 1ml (1000mcg) intramuscularly every week x 4 weeks, then once monthly. 30ml Laura Tse MD, PhD 0 Fulqxfnafl95yb Tablets 1 by mouth every day 30tabs K21 .9 Laura Tse MD, PhD 0 Fdgyigozzc2cp Tablets 1 by mouth 2 times a day. 60tabs Riccardo Nickerson, DO 0 History Medications Focalin2.5mg Tablets 1 by mouth twice daily. Initial therapy. 14tabs F90.0 Laura Tse MD, PhD 09/06/2023 - 09/14/2023 Buspirone FQJ39yq Tablets 1 by mouth twice a day [...] Code Status Date Vaccine Reaction Lot # [id number] Given 01/13/2021 TB Intradermal Test 0 mm - negative, read @ 4:32pm [id number] 45499 Given 04/17/2019 TB Intradermal Test 0.0MM read by Salvador Bonilla LPN at 11:41AM [id number] 42876 Given 09/02/2014 TB Intradermal Test 0 mm reaction. Negative read by RF on 09/05/14 at 11:36am. [id number] 17595 Refused 09/06/2023 Sarscov2 Vaccin e 50 mcg/0.5 ML For Im Use 12 Yrs And Older 82613 Refused 04/11/2022 Influenza Virus Vaccine, Quadrivalent, Split Virus, Im Use 6-35 51864 Refused 09/09/2021 Moderna Sars-Co v-2 (Cov-19) vacc,100 mcg/ 0.5 mL 12Y+EMR Doc Only 45065 Refused 09/09/2021 Influenza Virus Vaccine, Quadrivalent (Cciiv4), Derived From Cell 26365 Refused 05/27/2019 Influenza Virus Vaccine, Quadrivalent, Im Use 34688 Refused 05/31/2018 Influenza Virus Vaccine, Quadrivalent, Im Use 92646 Refused 08/18/2017 Tdap (Tetanus, diphtheria & acel. pertussis) Adacel or Boostrix 47298 Refused 07/20/2017 Influenza Virus Vaccine, Quadrivalent, Im Use 81740 Refused 07/06/2016 Influenza Virus Vaccine, Quadrivalent, Im Use 04154 Refused 10/06/2015 Influenza Virus Vaccine, Quadrivalent, Im Use 64171 Refused 09/09/2014 Influenza Virus Vaccine, Quadrivalent, Im [...] 5'3" BMI (Body Mass Index) 23.7 kg/m2 [place] Body Weight 115 lb Results Test Acquired Date Facility Test Result H/L Range N ote Laboratory test finding 11/01/2023 [facility]. 1 [place], [place] [id number] [phone] TSH <pending> FRT4 <pending> Laboratory test finding 09/06/2023 [facility]. 1 [place], [place] [address] [phone] FRT4 0.51 ng/dL Low 0.75-1.54 TSH 1.46 uIU/mL 0.50-6.00 Vitd-25Oh 19 ng/mL Low 30-100 VB12 169 pg/mL Low 230-1050 CBC W/Diff 09/06/2023 [facility]. 1 [place] [address] [phone] WBC 6.8 10^3/M3 3.1-9.2 RBC 4.19 10^6/M3 3.70-5.50 HGB 13.1 GR/DL 11.5-16.1 HCT 38.2 % 34.5-47.8 MCV 91.0 CUMICR 82.6-95.8 MCH 31.3 PICOGR 27.9-32.9 MCHC 34.4 % 32.6-35.4 RDW 13.7 % 11.4-14.6 PLT 464 10^3/M3 High 140-350 MPV 7.1 CUMICR 7.0-10.6 %Neut 44.1 % 40.0-75.0 %Lymph 44.7 % 17.0-45.0 %Coos 7.8 % 1.0-11.0 %Eos 2.3 % 0.0-6.0 %Baso 1.1 % 0.0-2.0 #Neut 3.0 10^3/M3 1.5-8.0 #Lymph 3.1 10^3/M3 0.8-3.2 #Coos 0.5 10^3/M3 0.0-0.8 #Eos 0.2 10^3/m3 0.0-0.4 #Baso 0.1 10^3/m3 0.0-0.2 Comp. Met 09/06/2023 [facility]. 1 [place] [address] [phone] Glucose 90 mg/dL 70-110 BUN 12 mg/dL [...] 2.3 g/dL 2.0-3.4 GFR 95 ML/MIN/1.73SQM >60 Procedures Date Code Description Status 11/01/2023 94089 Venipuncture Routine Complet ed 09/06/2023 G9920 Scrning Perf And Negative Co mpleted 09/06/2023 G2211 Continuation of care e/m vis it add on Completed 09/06/2023 01761 Venipuncture Routine Complet ed 03/02/2023 [id number] Colonoscopy Completed 04/22/2020 [id number] Mammogram Completed Medical Devices Description No Information Available Encounters Type Date Location Provider Dx Diagnosis Office Visit 11/01/2023 2:30p Dodie Telles [facility] F41.1 Generalized anxiety disorder F33.1 Major depressive dis order, recurrent, moderate 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, 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 disorder E03.9 Hypothyroidism, unsp ecified R30.0 Dysuria D75.838 Other thrombocytosis Office Visit 09/06/2023 10:00a [facility] Koki GrafPAVEL F41.1 Generalized anxiety disorder F33.1 Major depressive dis order, recurrent, moderate 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, predom inattentive type E03.9 Hypothyroidism, unsp ecified E55.9 Vitamin D deficiency , unspecified E53.9 Vitamin B deficiency , unspecified K21.9 Gastro-esophageal re flux disease without esophagitis G47.00 Insomnia, unspecifie d Z60.8 Other problems relat ed to social environment Z79.899 Other fdc (cur rent) drug therapy Assessments Date Code Description Provider 11/01/2023 F41.1 Generalized anxiety disorder Koki ALAN WhittenC 11/01/2023 F33.1 Major depressive disorder, recurrent, moderate Koki ALAN WhittenC 11/01/2023 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, predominantly inat Koki Whitten, ALANC 11/01/2023 F51.05 Insomnia due to other mental disorder Kokisonali VillegasALAN starrC 11/01/2023 E03.9 Hypothyroidism, unspecified Koki Maria Dolores, ALANC 11/01/2023 R30.0 Dysuria Koki Maria Dolores, [facility] 11/01/2023 D75.838 Other thrombocytosis Kokisonali Villegasmatty, ALANC 09/06/2023 F41.1 Generalized anxiety disorder Koki VillegasALAN starrC 09/06/2023 F33.1 Major depressive disorder, recurrent, moderate Koki Whitten PA-C 09/06/2023 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, predominantly inat Koki Whitten PA-C 09/06/2023 E03.9 Hypothyroidism, unspecified Koki Whitten PA-C 09/06/2023 E55.9 Vitamin D deficiency, unspec ified Koki PAVEL Whitten 09/06/2023 E53.9 Vitamin B deficiency, unspec ified Koki PAVEL Whitten 09/06/2023 K21.9 Gastro-esophagea l reflux disease without esophagitis Koki Whitten PA-C 09/06/2023 G47.00 Insomnia, unspecified Mona e PAVEL Whitten 09/06/2023 Z60.8 Other problems related to so cial environment Koki Whitten PA-C 09/06/2023 Z79.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
--- OUTSIDE RECORDS SUMMARY | 2024-03-23 03:21 | External Medical Summary | Summary of Care ---
Author Name Unknown Organization [facility] Address [address] [facility] [facility] [address] Phone [phone] Care Team Providers Care Hybrid Powertrain Development Engineer Name Role Phone Laura Tse MD Primary Care Provider + Reason for Referral * Evaluate & Treat - Unlimited Visits (Within 10 days (routine)) - Pending Review Specialty Diagnoses / Procedures Referred By Contcharli t Referred To Contact Hematology/Oncology / Hematology Oncology Diagnoses Other thrombocytosis Koki Whitten PA-C [address] [facility] [place] [phone] Referral ID Status Reason Start Date Expiration Date Visits Requested Visits Authorized [id number] Pending Review Specialty Services Required 11/06/[phone] Question Answer Referral Priority Within 10 days (routine) Where should this appointment be scheduled? [facility] Reason for Referral Thrombosis/Bruising/Abnormal Coagulation Comments Appointment requested by external PCP, referral, notes, imaging and labs sent to Care Everywhere Encounter Details Date Type Department Care Team (Late st Contact Info) Description 11/06/2023 Orders Only [facility] [place] [address] [place] [address] Ext *DO NOT REMOVE THIS DEPARTMENT* [place] [id number] Request, External Referral Other thrombocytosis* Allergies Active Allergy Reactions Criticality Noted Date Comments Erythromycin 01/09/2002 GI UPSET documented as of this encounter (statuses as of 11/06/2023) Medications Medication Sig Dispensed Refills Start Date [...] as of this encounter (statuses as of 11/06/2023) Active Problems Problem Noted Date Diagnosed Date [...] as of this encounter (statuses as of 11/06/2023) Resolved Problems Problem Noted Date Diagnosed Date Resolved Date Encounter for supervision of other normal 02/27/2003 11/14/2003 Overview: ICD-10 update of inactive term Constipation 11/14/2003 Overview: ICD-10 update of inactive term URIN TRACT INFECTION NOS 08/2004 documented as of this encounter (statuses as of 11/06/2023) Immunizations Name Administration Dates Next Due TD, [...] Scheduled Referrals Name Type Priority Associated Diagnoses Orde r Schedule HEMATOLOGY/ONCOLOG Y REFERRAL OP Referral Within 10 days (routine) Other thrombocytosis Ordered: 11/06/2023 Health Maintenance Due Date Last Done Comments [...] as of this encounter Visit Diagnoses Diagnosis Other thrombocytosis- Primary documented in this encounter Advance Directives Latest Code Status on File Code Status Date Activated Date Inactivated Comments Full Code 01/16/2022 1:36 AM 01/20/2022 2:02 PM This order reflects the patients wishes and were consensually agreed upon. Question Answer Comments Discussion of Advance Directives occurred with: Patient Does the patient have a Living Will? No Does the patient have Health Care Power of [employer] Wafer Breaker? No Code Status History Code Status Date [...] and were consensually agreed upon. Care Teams Hybrid Powertrain Development Engineer Relationship Specialty Start Date End Date Laura Tse MD [address] [facility] [place] [id number] PCP - General Family Medicine 10/20/16 documented as of this encounter
--- OUTSIDE RECORDS SUMMARY | 2024-03-23 03:21 | External Medical Summary ---
Author Name Unknown Address Unknown Organization K1C:[facility] [address] [place] [address] Laboratory Report Ordering Provider Test Date Status MAMI BOSS 11/01/2023 15:09 Final Observation Date Value Abnormality Reference (Units ) Status URINE SOURCE 11/04/2023 08:56 URINE Final Cholesterol 11/04/2023 08:56 >100,000 COL/CC Final Performing Location [facility] [address] [place] [address] Ordering Provider Test Date Status MAMI BOSS 11/01/2023 15:09 Final Observation Date Value Abnormality Reference (Units ) Status ISOLATE #1 11/04/2023 08:56 Escherichia coli Final AMOX/K CLAV 11/04/2023 08:26 <=8/4 S F inal AMPICILLIN 11/04/2023 08:26 <=8 S Fi nal AZTREONAM 11/04/2023 08:26 <=4 S Fin al CEFAZOLIN 11/04/2023 08:26 <=2 S Fin al CEFEPIME 11/04/2023 08:26 <=2 S Fin al CEFTRIAXONE 11/04/2023 08:26 <=1 S F inal CIPROFLOXACIN 11/04/2023 08:26 <=0.25 S Final GENTAMICIN 11/04/2023 08:26 <=2 S Fi nal NITROFURANTOIN 11/04/2023 08:26 <=32 S Final TETRACYCLINE 11/04/2023 08:26 <=4 S Final TOBRAMYCIN 11/04/2023 08:26 <=2 S Fi nal TRIMETH/SULFA 11/04/2023 08:26 <=2/38 S Final MEROPENEM 11/04/2023 08:26 <=1 S Fin al Performing Location [facility] [address] [place] [id number]
--- OUTSIDE RECORDS SUMMARY | 2024-03-23 03:21 | External Medical Summary | Summary of Care ---
Author Name Unknown Organization [facility] Address [address] [place] [address] Phone [phone] Care Team Providers Care Passenger Service Manager Name Role Phone Laura Tse MD Primary Care Provider + Encounter Details Date Type Department Care Team (Late st Contact Info) Description 11/01/2023 Orders Only Unspecified Department Koki Whitten PA-C [address] [address] [phone] Allergies Active Allergy Reactions Criticality Noted Date Comments Erythromycin 01/09/2002 GI UPSET documented as of this encounter (statuses as of 11/02/2023) Medications Medication Sig Dispensed Refills Start Date [...] as of this encounter (statuses as of 11/02/2023) Active Problems Problem Noted Date Diagnosed Date [...] as of this encounter (statuses as of 11/02/2023) Resolved Problems Problem Noted Date Diagnosed Date Resolved Date Encounter for supervision of other normal 02/27/2003 11/14/2003 Overview: ICD-10 update of inactive term Constipation 11/14/2003 Overview: ICD-10 update of inactive term URIN TRACT INFECTION NOS 08/2004 documented as of this encounter (statuses as of 11/02/2023) Immunizations Name Administration Dates Next Due TD, [...] 08/04, 07/24/2018, Additional history exists COVID-19 Vaccine ( - 2022- season) 2023 Influenza Vaccine (FLU shot) (#1) [...] Procedure Name Priority Date/Time Associated Diagnosis Comments URINALYSIS, REFLEX TO MICROSCOPIC Routine 11/01/2023 3:09 PM EST FRT4 - OUTSIDE LAB Routine 11/01/2023 3: 05 PM EST TSH Routine 11/01/2023 3:05 PM EST documented in this encounter Results * (ABNORMAL) URINALYSIS, REFLEX TO MICROSCOPIC (11/01/2023 3:09 PM EST) COLOR - OUTSIDE LAB LIGHT-ORANG E(A) [facility] Comment:Document delivery by Maninder on behalf of [facility] APPEARANCE-OUTSI DE LAB TURBID(A) CLEAR [facility] Comment:Document delivery by Maninder on behalf of [facility] SPECIFIC GRAVITY - OUTSIDE LAB 1.030(H) 1.005 - 1.025 [facility] Comment:Document delivery by Maninder on behalf of [facility] LEUKOCYTE-Outsid e Lab LARGE(A) NEGATIVE [facility] Comment:Document delivery by Maninder on behalf of [facility] NITRITE - OUTSIDE LAB POSITIVE(A) NEGATIVE [facility] Comment:Document delivery by Maninder on behalf of [facility] PH - OUTSIDE LAB 6.0 6.0 - 7.5 [facility] Comment:Document delivery by Maninder on behalf of [facility] PROTEIN-OUTSIDE LAB SMALL(A) NEGATIVE [facility] Comment:Document delivery by Maninder on behalf of [facility] URINE GLUCOSE-OUTSIDE LAB NEGATIVE NEGATIVE [facility] Comment:Document delivery by Maninder on behalf of [facility] KETONE - OUTSIDE LAB NEGATIVE NEGATIVE [facility] Comment:Document delivery by Maninder on behalf of [facility] UROBILINOGEN - OUTSIDE LAB NORMAL NORMAL E.U./DL [facility] Comment:Document delivery by Maninder on behalf of [facility] BILIRUBIN-OUTSID E LAB NEGATIVE NEGATIVE [facility] Comment:Document delivery by Maninder on behalf of [facility] BLOOD - OUTSIDE LAB NEGATIVE NEGATIVE [facility] Comment:Document delivery by Maninder on behalf of [facility] WBC-U - OUTSIDE LAB TNTC(A) 0-5/HPF /HPF [facility] Comment:Document delivery by Maninder on behalf of [facility] RBC-U - OUTSIDE LAB 0-2 0-5/HPF /HPF [facility] Comment:Document delivery by Maninder on behalf of [facility] BACTERIA - OUTSIDE LAB TRACE NONE SEEN [facility] Comment:Document delivery by Maninder on behalf of [facility] HYALINE CASTS - OUTSIDE LAB 21-50(A) NONE SEEN /LPF [facility] Comment:Document delivery by Maninder on behalf of [facility] SQUAMOUS - OUTSIDE LAB 11-15(A) 0-5/HPF /HPF [facility] Comment:Document delivery by Maninder on behalf of [facility] CAOX CRYSTAL - OUTSIDE LAB 1+(A) NOT PRESENT /HPF [facility] Comment:Document delivery by Maninder on behalf of [facility] 11/01/2023 3:09 PM EST Koki Whitten PA-C LAB URINE ORDER MATHIEU [facility] [address] [place] [address] * FRT4 - OUTSIDE LAB (11/01/2023 3:05 PM EST) FRT4 - OUTSIDE LAB 0.79 0.75 - 1.54 ng/dL [facility] Comment:Document delivery by KeyHIE on behalf of [facility] 11/01/2023 3:05 PM EST Koki Jaki [facility] Performing Organization Address City/[facility]/ZIP Co de Phone Number [facility] [address] [place] [phone] * TSH (11/01/2023 3:05 PM EST) TSH REFLEX - OUTSIDE LAB 0.96 0.50 - 6.00 uIU/mL [facility] Comment:Document delivery by AlexandriaHIE on behalf of [facility] 11/01/2023 3:05 PM EST Koki Jaki [facility] BLOOD ORDER MATHIEU Performing Organization Address City/[facility] Co de Phone Number [facility] [address] [place] [phone] documented in this encounter Advance Directives Latest Code Status on File Code Status Date Activated Date Inactivated Comments Full Code 01/16/2022 1:36 AM 01/20/2022 2:02 PM This order reflects the patients wishes and were consensually agreed upon. Question Answer Comments Discussion of Advance Directives occurred with: Patient Does the patient have a Living Will? No Does the patient have Health Care Power of Patient Financial Coordinator? No Code Status History Code Status Date [...] and were consensually agreed upon. Care Teams Passenger Service Manager Relationship Specialty Start Date End Date Laura Tse MD [address] [facility] [address] PCP - General Family Medicine 10/20/16 documented as of this encounter
--- OUTSIDE RECORDS SUMMARY | 2024-03-23 03:21 | External Medical Summary | Continuity of Care Document ---
Author Name Unknown Organization [facility] Address [address] [place] [address] Phone [phone] Problems Active Problems Provider Date Moderate recurrent [...] SIG Qnty Indications Order ing Provider Date Ljxvogr5nm Tablets 1 by mouth at bedtime. 30tabs F51.05 Laura Tse MD, PhD 4 Rexulti0.5mg Tablets 1 by mouth daily. 30tabs F33.1 Laura Tse MD, PhD 4 Mcgrrob43fa Tablets 1 tablet by mouth three times a day. ongoing therapy. 30tabs F90.0 Laura Tse MD, PhD 4 Tbymjgnd334vn Capsules 1 by mouth twice a day x 5 days with food 10caps R30.0 Laura Tse MD, PhD 4 - 4 Levothyroxine Ocgxlq99erq Tablets 1 by mouth daily on an empty stomach. 30tabs Laura Tse MD, PhD [address] 1 by mouth daily. Take on empty stomach 30 minutes prior to eating. 30caps K21.9 Laura Tse MD, PhD 4 Desvenlafaxine Succinate DG158yp Tablets ER 24HR Take One Tablet By Mouth Every Day With Food 30tabs F41.1 Laura Tse MD, PhD 3 Mdhtlr-S69-662ko Tablets 1 by mouth daily. 90tabs Laura Tse MD, PhD 3 Vitamin D (Ergocalciferol)1.25mg (34149 Ut) Capsules Take One Capsule By Mouth Once Weekly 12caps Laura Tse MD, PhD 3 Prochlorperazine Gzzhnsg5yx Tablets 1 by mouth every 8 hours as needed for nausea. 10tabs Laura Tse MD, PhD 3 Gbiuchbzky092xz Capsules take 1 capsule by mouth 2 hours before bedtime. 30caps G25.81 Laura Tse MD, PhD 3 Quetiapine Odievbym530rw Tablets take one (1) tablet by mouth at bedtime 30tabs Laura Tse MD, PhD 1 Vplqhxz575lbw Capsules take 1 capsule by mouth daily 90caps K59.00 Laura Tse MD, PhD 1 3ML Luer Lock Safety Syringes/3ML/25G X 1"25G X 1" 3 ML Misc use to administer b12 12units Laura Tse MD, PhD 0 Aisnigmdpzjrjq0931thd/ ML Solution inject 1ml (1000mcg) intramuscularly every week x 4 weeks, then once monthly. 30ml Laura Tse MD, PhD 0 Zcikjtglhp85dc Tablets 1 by mouth every day 30tabs K21 .9 Laura Tse MD, PhD 0 Wumkrpmpas0iv Tablets 1 by mouth 2 times a day. 60tabs Riccardo Nickerson, DO 0 History Medications Focalin2.5mg Tablets 1 by mouth twice daily. Initial therapy. 14tabs F90.0 Laura Tse MD, PhD 09/06/2023 - 09/14/2023 Buspirone FBE76ee Tablets 1 by mouth twice a day [...] Code Status Date Vaccine Reaction Lot # [id number] Given 01/13/2021 TB Intradermal Test 0 mm - negative, read @ 4:32pm [id number] Given 04/17/2019 TB Intradermal Test 0.0MM read by Salvador Bonilla LPN at 11:41AM [id number] Given 09/02/2014 TB Intradermal Test 0 mm reaction. Negative read by RF on 09/05/14 at 11:36am. [id number] Refused 09/06/2023 Sarscov2 Vaccin e 50 mcg/0.5 ML For Im Use 12 Yrs And Older 98039 Refused 04/11/2022 Influenza Virus Vaccine, Quadrivalent, Split Virus, Im Use 6-35 93871 Refused 09/09/2021 Moderna Sars-Co v-2 (Cov-19) vacc,100 mcg/ 0.5 mL 12Y+EMR Doc Only 51778 Refused 09/09/2021 Influenza Virus Vaccine, Quadrivalent (Cciiv4), Derived From Cell 14001 Refused 05/27/2019 Influenza Virus Vaccine, Quadrivalent, Im Use 24213 Refused 05/31/2018 Influenza Virus Vaccine, Quadrivalent, Im Use 66095 Refused 08/18/2017 Tdap (Tetanus, diphtheria & acel. pertussis) Adacel or Boostrix 83289 Refused 07/20/2017 Influenza Virus Vaccine, Quadrivalent, Im Use 61347 Refused 07/06/2016 Influenza Virus Vaccine, Quadrivalent, Im Use 06802 Refused 10/06/2015 Influenza Virus Vaccine, Quadrivalent, Im Use 70464 Refused 09/09/2014 Influenza Virus Vaccine, Quadrivalent, Im [...] 5'3" BMI (Body Mass Index) 23.7 kg/m2 [place] Body Weight 115 lb Results Test Acquired Date Facility Test Result H/L Range N ote Laboratory test finding 11/01/2023 [facility] [address] [place] [address] [phone] TSH 0.96 uIU/mL 0.50-6.00 FRT4 0.79 ng/dL 0.75-1.54 Laboratory test finding 09/06/2023 [facility] [address] [place] [address] [phone] FRT4 0.51 ng/dL Low 0.75-1.54 TSH 1.46 uIU/mL 0.50-6.00 Vitd-25Oh 19 ng/mL Low 30-100 VB12 169 pg/mL Low 230-1050 CBC W/Diff 09/06/2023 [facility] [address] [place] [address] [phone] WBC 6.8 10^3/M3 3.1-9.2 RBC 4.19 10^6/M3 3.70-5.50 HGB 13.1 GR/DL 11.5-16.1 HCT 38.2 % 34.5-47.8 MCV 91.0 CUMICR 82.6-95.8 MCH 31.3 PICOGR 27.9-32.9 MCHC 34.4 % 32.6-35.4 RDW 13.7 % 11.4-14.6 PLT 464 10^3/M3 High 140-350 MPV 7.1 CUMICR 7.0-10.6 %Neut 44.1 % 40.0-75.0 %Lymph 44.7 % 17.0-45.0 %Kern 7.8 % 1.0-11.0 %Eos 2.3 % 0.0-6.0 %Baso 1.1 % 0.0-2.0 #Neut 3.0 10^3/M3 1.5-8.0 #Lymph 3.1 10^3/M3 0.8-3.2 #Kern 0.5 10^3/M3 0.0-0.8 #Eos 0.2 10^3/m3 0.0-0.4 #Baso 0.1 10^3/m3 0.0-0.2 Comp. Met 09/06/2023 [facility] [address] [place] [address] [phone] Glucose 90 mg/dL 70-110 BUN 12 mg/dL [...] >60 Procedures Date Code Description Status 11/01/2023 73630 Venipuncture Routine Complet ed 09/06/2023 G9920 Scrning Perf And Negative Co mpleted 09/06/2023 G2211 Continuation of care e/m vis it add on Completed 09/06/2023 63771 Venipuncture Routine Complet ed 03/02/2023 [id number] Colonoscopy Completed 04/22/2020 [id number] Mammogram Completed Medical Devices Description No Information Available Encounters Type Date Location Provider Dx Diagnosis Office Visit 11/01/2023 2:30p [facility] Koki PAVEL Whitten F41.1 Generalized anxiety disorder F33.1 Major depressive dis order, recurrent, moderate 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, 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 disorder E03.9 Hypothyroidism, unsp ecified R30.0 Dysuria D75.838 Other thrombocytosis Office Visit 09/06/2023 10:00a [facility] Koki GrafPAVEL F41.1 Generalized anxiety disorder F33.1 Major depressive dis order, recurrent, moderate 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, predom inattentive type E03.9 Hypothyroidism, unsp ecified E55.9 Vitamin D deficiency , unspecified E53.9 Vitamin B deficiency , unspecified K21.9 Gastro-esophageal re flux disease without esophagitis G47.00 Insomnia, unspecifie d Z60.8 Other problems relat ed to social environment Z79.899 Other long-term (cur rent) drug therapy Assessments Date Code Description Provider 11/01/2023 F41.1 Generalized anxiety disorder Koki Whitten PA-C 11/01/2023 F33.1 Major depressive disorder, recurrent, moderate Koki Whitten PA-C 11/01/2023 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, predominantly inat Koki PAVEL Whitten 11/01/2023 F51.05 Insomnia due to other mental disorder Koki Whitten PA-C 11/01/2023 E03.9 Hypothyroidism, unspecified Koki Whitten PA-C 11/01/2023 R30.0 Dysuria Koki Whitten PA-C 11/01/2023 D75.838 Other thrombocytosis Koki Whitten PA-C 09/06/2023 F41.1 Generalized anxiety disorder Koki Whitten PA-C 09/06/2023 F33.1 Major depressive disorder, recurrent, moderate Koki PAVEL Whitten 09/06/2023 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, predominantly inat Koki PAVEL Whitten 09/06/2023 E03.9 Hypothyroidism, unspecified Koki Maria Dolores, PAVEL 09/06/2023 E55.9 Vitamin D deficiency, unspec ified Koki Whitten, PAVEL 09/06/2023 E53.9 Vitamin B deficiency, unspec ified Koki Whitten, PAVEL 09/06/2023 K21.9 Gastro-esophagea l reflux disease without esophagitis Koki PAVEL Whitten 09/06/2023 G47.00 Insomnia, unspecified Mona Whitten, PAVEL 09/06/2023 Z60.8 Other problems related to so cial environment Koki Whitten PA-C 09/06/2023 Z79.899 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
[2024-03-23] MEDS: D5W AND 1/2NSS + 20MEQ KCL 20 MEQ/1,000 ML BAG IV SCH (04:26)
--- NOTE | 2024-03-23 08:31 | XRay Report ---
XR abdomen 2V w PA chest CLINICAL HISTORY: vomiting TECHNIQUE: 2 views of the abdomen were obtained. A single view of the chest was obtained. Comparison: None available at the time of this dictation. FINDINGS: No lines and tubes are seen. The cardiomediastinal silhouette is normal. The lungs are clear. No evid ence of pleural effusion or pneumothorax. The osseous structures are grossly unremarkable. The bowel gas pattern is nonobstructive. A moderate amount of stool is noted within the large bowel. IMPRESSION: Nonobstructive bowel gas pattern. ACT 112: Negative or not required by law. Electronically signed by: Mata Mccauley M.D. 03/23/2024 8:30 AM
--- NOTE | 2024-03-23 08:59 | Gastrointestinal Consultation ---
Date of Consultation March 23, 2024 Assessment & Plan (1) Nausea & vomiting: After talking with her I think her problems are likely stress related. She put the connection between the timing of the onset of her symptoms and the start of the divorce process now leading to a custody fernandez. She had a colonoscopy last year and her main issue with her bowels are constipation related (she is asking to stay on linzess) so I don't know that repeat colonoscopy is absolutely necessary. I do think EGD is a good idea so if she is here Monday we can consider doing that. I don't know that I think she has gastroparesis although I don't have her test results in front of me, the true incidence of gastroparesis is about 1 in 100,000 although the majority of patients are female. She does take meds that can alter her gut motility. I think she can try a regular diet. I discussed trial of amitriptyline for what I think is functional issues and she is happy to try it. I will follow History of Present Illness Reason for Consultation: nausea, vomiting and bowel movement issues Attending Physician: Jose Manuel Fu MD History of Present Illness 48 year old female with stomach problems for the last three years. She has been battling constipation, nausea and vomiting. This has progressed and she has been in the hospital at [facility] three times this year, the most recent being discharge two weeks ago. She had a colonoscopy last year but only small polyps were found. She has not seen a GI doc regularly for this during the past 3-4 years she has been dealing with this, she has worked with her PCP. She did see GI in consult at [facility] who did a gastric emptying study on her that she says showed "gastroparesis" but he told her there was "something more going on". She has not had an EGD at anytime during this fernandez with her stomach. she says she has really good days and then she will start vomiting and her potassium will drop. She takes linzess chronically so she usually battles constipation but she will have spells of diarrhea. She has gone through a messy divorce and is now going through a custody fernandez. This has been going on for the past 3 years, she says basically the time she has had her stomach issues. She is scheduled for an EGD and a colonoscopy but not until the end of April. Today she feels well and wants a regular diet. Allergies Allergy/AdvReac Type Severity Reaction Status Date / Time No Known Allergies Allergy Unverified 03/22/24 23:10 Home Medications Medication Instructions Recorded Confirmed Type bupropion HCl 150 mg tablet,12 hr 150 mg PO QAM 03/22/24 03/22/24 History sustained-release calcium carbonate (Calcium Antacid) 750 tab PO QAM 03/22/24 03/22/24 History clonazepam 1 mg tablet 1 mg PO BID 03/22/24 03/23/24 History cyanocobalamin (vitamin B-12) 1,000 mcg IM UD 03/22/24 03/22/24 History 1,000 mcg/mL injection solution desvenlafaxine succinate 100 mg 100 mg PO DAILY 03/22/24 03/22/24 History tablet,extended release 24 hr esomeprazole magnesium 40 mg 40 mg PO DAILY 03/22/24 03/22/24 History capsule,delayed release (Nexium) famotidine 20 mg tablet 20 mg PO BID 03/22/24 03/22/24 History linaclotide 290 mcg capsule 290 mcg PO DAILY 03/22/24 03/22/24 History (Linzess) loperamide 2 mg capsule 2 mg PO DIRECTED PRN Diarrhea 03/22/24 03/22/24 History methylphenidate HCl 20 mg tablet 20 mg PO TID 03/22/24 03/22/24 History (Ritalin) ondansetron 4 mg disintegrating 4 mg PO TID PRN Nausea 03/22/24 03/22/24 History tablet potassium chloride 20 mEq 40 meq PO TID 03/22/24 03/23/24 History tablet,extended release quetiapine 200 mg tablet 200 mg PO HS 03/22/24 03/22/24 History simethicone 80 mg chewable tablet 80 mg PO TID PRN .gas/bloating 03/22/24 03/22/24 History (Gas Relief 80 (simethicone)) Patient History Social History Smoking Status: Never smoker Second Hand Exposure: No; Do You Dip or Chew Tobacco: No; Tobacco Cessation Education Requested by Patient: No Hx Alcohol Use: No Hx Substance Use: No Preferred Language: Maori Communication Ability: Effective Director Of Brand Marketing Required: No Beliefs That Will Affect Care: None Current Living Situation: Alone Other Information That Helps Us Care for You: No Feels Safe at Home: Yes Safety Concerns: Feels Safe At This Time Assistive Devices: None Review of Systems Review of Systems: All systems reviewed & are unremarkable except as noted in HPI & below Physical Exam Constitutional: WD/WN, vitals as above Neck: trachea midline, no thyromegaly Respiratory: normal respiratory effort, lungs clear to auscultation Cardiovascular: RRR, no murmur, no edema Gastrointestinal (Abdomen): normal bowel sounds, soft, nontender, no hepatosplenomegaly Results & Data Vital Signs (Past 12 Hours) Vital Signs Temp Pulse Pulse Resp BP Pulse Ox O2 Del Method 03/23/24 07:51 36.3 C L 77 18 93/63 L 98 Room Air 03/23/24 07:46 74 03/23/24 03:35 87 03/23/24 03:09 36.4 C L 85 16 100/68 98 Room Air 03/23/24 01:10 82 03/22/24 22:23 90 18 118/80 99 Room Air 03/22/24 21:03 101 H Laboratory Results 03/23/24 03/22/24 03/22/24 Range/Units 02:58 Unknown 22:52 WBC 10.69 (4.8-10.8) K/ul RBC 5.09 (4.20-5.40) M/uL Hgb 15.4 (12.0-16.0) g/dl Hct 44.6 (37.0-47.0) % MCV 87.6 (80.0-100.0) fL MCH 30.3 (25.0-34.0) pg MCHC 34.5 (32.0-36.0) g/dL RDW Std Deviation 40.1 (36.4-46.3) fL RDW Coeff of Justino 12.4 (11.5-14.5) % Plt Count 512 H (130-400) K/uL MPV 9.0 L (9.4-12.4) fL Immature Gran % (Auto) 0.3 % Neut % (Auto) 50.3 % Lymph % (Auto) 42.2 % Cross % (Auto) 6.0 % Eos % (Auto) 0.7 % Baso % (Auto) 0.5 % Neut # (Auto) 5.38 (1.40-6.50) K/uL Lymph # (Auto) 4.51 H (1.20-3.40) K/uL Cross # (Auto) 0.64 H (0.11-0.59) K/uL Eos # (Auto) 0.08 (0.00-0.50) K/uL Baso # (Auto) 0.05 (0.00-0.20) K/uL Immature Gran # (Auto) 0.03 (0.01-0.20) K/uL PT 10.5 (9.0-12.0) Seconds INR 1.0 (0.9-1.1) APTT 27 (21-31) Seconds PTT Ratio 1.0 Sodium 136 (136-145) mmol/L Potassium 2.7 L (3.5-5.1) mmol/L Chloride 101 (98-107) mmol/L Carbon Dioxide 20 L (21-32) mmol/L Anion Gap 15 H (3-11) BUN 19 (6-23) mg/dl Creatinine 1.04 (0.6-1.2) mg/dl Est Cr Clr Drug Dosing 57.7 ml/min Est GFR ( Amer) 74.1 ml/min Est GFR (Non-Af Amer) 63.9 ml/min BUN/Creatinine Ratio 18.3 (10-20) Glucose 173 H (70-99(Fasting)) mg/dl Calcium 9.7 (8.6-10.3) mg/dl Magnesium 1.9 (1.7-2.4) mg/dl Total Bilirubin 0.3 (0.2-1.0) mg/dl AST 20 (13-39) U/L ALT 17 (7-52) U/L Alkaline Phosphatase 105 H (34-104) U/L Total Protein 8.5 H (6.0-8.3) gm/dl Albumin 4.9 (3.4-5.0) gm/dl Globulin 3.6 (2.5-4.0) gm/dl Albumin/Globulin Ratio 1.4 (0.9-2) Urine Color Yellow Urine Appearance Cloudy A (Clear) Urine pH 5.5 (4.5-7.5) Ur Specific [place] 1.011 (1.000-1.030) Urine Protein Negative (Negative) Urine Glucose (UA) Negative (Negative) Urine Ketones Negative (Negative) Urine Blood Negative (Negative) Urine Nitrite Negative (Negative) Urine Bilirubin Negative (Negative) Urine Urobilinogen Negative (Negative) Ur Leukocyte Esterase 1+ H (Negative) Urine WBC (Auto) 11-20 H (0-5) /hpf Urine RBC (Auto) 0-2 (0-2) /hpf U Hyaline Cast (Auto) 3-5 H (0-2) /lpf U Epithel Cells (Auto) 6-10 H (0-2) /hpf Urine Bacteria (Auto) None Seen (None Seen) [place] < 0.1 L (0.6-1.2) mmol/L Diagnostic Findings Chest/Abdomen X-ray 03/22/24 21:38 XR abdomen 2V w PA chest CLINICAL HISTORY: vomiting TECHNIQUE: 2 views of the abdomen were obtained. A single view of the chest was obtained. Comparison: None available at the time of this dictation. FINDINGS: No lines and tubes are seen. The cardiomediastinal silhouette is normal. The lungs are clear. No evidence of pleural effusion or pneumothorax. The osseous structures are grossly unremarkable. The bowel gas pattern is nonobstructive. A moderate amount of stool is noted within the large bowel. IMPRESSION: Nonobstructive bowel gas pattern. ACT 112: Negative or not required by law. Electronically signed by: Mata Mccauley M.D. 03/23/2024 8:30 AM
[2024-03-23] MEDS: ONDANSETRON INJ 2 MG/ML 2 ML VIAL IV PRN (09:36)
[2024-03-23] MEDS: CALCIUM CARBONATE 500 MG CHEWABLE TAB PO SCH (09:36)
[2024-03-23] MEDS: METHYLPHENIDATE HCL 10 MG TABLET PO SCH ×2 (09:36→17:29)
[2024-03-23] MEDS: SIMETHICONE 80 MG CHEW PO PRN (09:37)
[2024-03-23] MEDS: POTASSIUM CHLORIDE CRTAB 20 MEQ TABCR PO SCH ×2 (09:37→20:21)
[2024-03-23] MEDS: buPROPion SR 150 MG TABCR PO SCH (09:37)
[2024-03-23] MEDS: FAMOTIDINE 20 MG TAB PO SCH (09:38)
[2024-03-23] MEDS: LINACLOTIDE 145 MCG CAPSULE PO SCH (09:38)
[2024-03-23] MEDS: PANTOprazole 40 MG TAB PO SCH (09:38)
--- NOTE | 2024-03-23 09:39 | Cardiology Consultation ---
Date of Consultation March 23, 2024 Assessment & Plan (1) Gastroparesis: (2) Acute hypokalemia: (3) Nausea & vomiting: Plan Impression/Plan: 1.Syncope 2.Hypokalemia 3.Thrombocytopenia 03/23/2024: -Syncope secondary to hypokalemia,and hypovolemia. Replace potassium as needed for K > 4.0 -Zio monitor reviewed from 2021, which was unremarkable. Echo at that time showed normal EF without WMA or valvular abnormalities. -No further cardiac workup recommended. Cardiology will sign off. Case discussed with Dr. Soares I spent a total of 55 minutes on the date of service in preparation, delivery, and documentation of the care provided to this patient, excluding any time spent in the performance of separately billed services. TASIA Horton Department of Cardiology, [facility] This chart was completed in part utilizing Speech Voice Recognition Software. Grammatical errors, random word insertions, pronoun errors, and incomplete sentences are an occasional consequence of this system due to software limitations, ambient noise, and hardware issues. Any formal questions or concerns about the content, text, or information contained within the body of this dictation should be directly addressed to the provider for clarification. Supervising Physician Co-Signing Physician Notes Attending attestation: Case reviewed with the advanced practitioner. I have personally performed a history and physical examination on the patient. I have reviewed the advanced practitioner's documentation on the date of service referenced in note, and I agree with, and take responsibility for the plan of care. Presentation not consistent with cardiac syncope. Workup for similar symptoms as an outpatient in 2021 was negative. No further cardiac work up indicated. I spent a total of 20 minutes coordinating, documenting, and providing care for this patient excluding time spent in the performance of separately billed services or time spent by another provider. Miguel Soares, DO History of Present Illness Reason for Consultation: Syncope Requesting Physician: Jose Manuel Fu MD History of Present Illness PMH: 1. Syncope 2. Palpitations 3. Depression 4. Migraines 5.Anxiety 6.ADHD 7.Gastroparesis Patient is a 48 yo F that presented to [facility] on 03/22/2024 for evaluation of nausea/vomiting. It should be noted that patient was admitted to [facility] on 3 separate occasions this year with similar symptoms. Symptoms thought to be related to IBS. Gastric emptying showed delayed emptying of solids. Patient is tentatively scheduled for a colonoscopy and EGD on 04/[address] Chevy LOPEZ. GI consulted, felt to be stress induced. Patient is going through a divorce and custody fernandez. Recommended trial of amitriptyline. Patient reports She has a lot of anxiety. States she gets really bad charley horses to the point where her skin will start to bruise. Denies all cardiovascular concerns today. Allergies Allergy/AdvReac Type Severity Reaction Status Date / Time No Known Allergies Allergy Unverified 03/22/24 23:10 Home Medications Medication Instructions Recorded Confirmed Type bupropion HCl 150 mg tablet,12 hr 150 mg PO QAM 03/22/24 03/22/24 History sustained-release calcium carbonate (Calcium Antacid) 750 tab PO QAM 03/22/24 03/22/24 History clonazepam 1 mg tablet 1 mg PO BID 03/22/24 03/23/24 History cyanocobalamin (vitamin B-12) 1,000 mcg IM UD 03/22/24 03/22/24 History 1,000 mcg/mL injection solution desvenlafaxine succinate 100 mg 100 mg PO DAILY 03/22/24 03/22/24 History tablet,extended release 24 hr esomeprazole magnesium 40 mg 40 mg PO DAILY 03/22/24 03/22/24 History capsule,delayed release (Nexium) famotidine 20 mg tablet 20 mg PO BID 03/22/24 03/22/24 History linaclotide 290 mcg capsule 290 mcg PO DAILY 03/22/24 03/22/24 History (Linzess) loperamide 2 mg capsule 2 mg PO DIRECTED PRN Diarrhea 03/22/24 03/22/24 History methylphenidate HCl 20 mg tablet 20 mg PO TID 03/22/24 03/22/24 History (Ritalin) ondansetron 4 mg disintegrating 4 mg PO TID PRN Nausea 03/22/24 03/22/24 History tablet potassium chloride 20 mEq 40 meq PO TID 03/22/24 03/23/24 History tablet,extended release quetiapine 200 mg tablet 200 mg PO HS 03/22/24 03/22/24 History simethicone 80 mg chewable tablet 80 mg PO TID PRN .gas/bloating 03/22/24 03/22/24 History (Gas Relief 80 (simethicone)) Patient History Social History Smoking Status: Never smoker Second Hand Exposure: No; Do You Dip or Chew Tobacco: No; Tobacco Cessation Education Requested by Patient: No Hx Alcohol Use: No Hx Substance Use: No Preferred Language: Armenian Communication Ability: Effective Supervisor Facepiece Line Required: No Beliefs That Will Affect Care: None Current Living Situation: Alone Other Information That Helps Us Care for You: No Feels Safe at Home: Yes Safety Concerns: Feels Safe At This Time Assistive Devices: None Review of Systems Review of Systems: All systems reviewed & are unremarkable except as noted in HPI & below Physical Exam Constitutional: WD/WN, vitals as above Respiratory: normal respiratory effort, lungs clear to auscultation normal respiratory effort; no respiratory distress Cardiovascular: RRR, no murmur, no edema Rate/Rhythm: regular rhythm and + tachycardic Heart Sounds: normal S1 and normal S2; no murmur Extremities: no edema Skin: scattered ecchymosis on lower extremities Neurologic: PERRL, EOMI, accommodation nl, no face palsy, no dysarthria Results & Data Vital Signs (Past 12 Hours) Vital Signs Temp Pulse Pulse Resp BP Pulse Ox O2 Del Method 03/23/24 07:51 36.3 C L 77 18 93/63 L 98 Room Air 03/23/24 07:46 74 03/23/24 03:35 87 03/23/24 03:09 36.4 C L 85 16 100/68 98 Room Air 03/23/24 01:10 82 03/22/24 22:23 90 18 118/80 99 Room Air Laboratory Results Cardiac Enzymes 03/22/24 Range/Units Unknown AST 20 (13-39) U/L Coagulation 03/22/24 Range/Units Unknown PT 10.5 (9.0-12.0) Seconds APTT 27 (21-31) Seconds CBC 03/22/24 Range/Units Unknown WBC 10.69 (4.8-10.8) K/ul RBC 5.09 (4.20-5.40) M/uL Hgb 15.4 (12.0-16.0) g/dl Hct 44.6 (37.0-47.0) % Plt Count 512 H (130-400) K/uL Neut # (Auto) 5.38 (1.40-6.50) K/uL Lymph # (Auto) 4.51 H (1.20-3.40) K/uL Greenlee # (Auto) 0.64 H (0.11-0.59) K/uL Eos # (Auto) 0.08 (0.00-0.50) K/uL Baso # (Auto) 0.05 (0.00-0.20) K/uL Comprehensive Metabolic Panel 03/22/24 Range/Units Unknown Sodium 136 (136-145) mmol/L Potassium 2.7 L (3.5-5.1) mmol/L Chloride 101 (98-107) mmol/L Carbon Dioxide 20 L (21-32) mmol/L BUN 19 (6-23) mg/dl Creatinine 1.04 (0.6-1.2) mg/dl Glucose 173 H (70-99(Fasting)) mg/dl Calcium 9.7 (8.6-10.3) mg/dl AST 20 (13-39) U/L ALT 17 (7-52) U/L Alkaline Phosphatase 105 H (34-104) U/L Total Protein 8.5 H (6.0-8.3) gm/dl Albumin 4.9 (3.4-5.0) gm/dl Intake and Output 03/22/24 03/23/24 03/23/24 22:59 06:59 14:59 Intake Total 1100 / 3400 2300 / 3400 Balance 1100 / 3400 2300 / 3400 Intake: IV 1100 / 3400 2300 / 3400 Potassium Chloride / Wtr 10 meq 100 / 400 300 / 400 In 100 ml @ 100 mls/hr IV Q1H LOBO Rx#:[id number] Sodium Chloride 0.9% 1,000 ml @ 1000 / 3000 2000 / 3000 75 mls/hr IV .[id number] LOBO Rx#: [id number] Oral 0 / 0 Other: Weight 56.5 kg 59.9 kg Weight Measurement Method Wheelchair Standing Scale Diagnostic Findings EKG 04/01/2024 ST 118 bpm Zio Monitor 11/26/2021 Patient had a min HR of 68 bpm, max HR of 167 bpm, and avg HR of 105 bpm. Predominant underlying rhythm was Sinus Rhythm. Isolated SVEs were rare (<1.0%), SVE Couplets were rare (<1.0%), and no SVE Triplets were present. Isolated VEs were rare (<1.0%), and no VE Couplets or VE Triplets were present. Patient's symptoms correlated with sinus rhythm and sinus tachycardia. Echo 09/30/2021 The qualitative LV ejection fraction is 65-69% (normal). The right ventricular cavity size is normal The right ventricular systolic function is normal The left ventricular diastolic function is mildly abnormal (grade I). Mild mitral regurgitation is present. Trivial tricuspid regurgitation is present. The signal is inadequate to calculate pulmonary artery systolic pressure. No pericardial effusion is noted. Normal IVC size and collapsibility with inspiration indicates a normal right atrial pressure of 3 mmHg
[2024-03-23 09:44] LABS: BUN Creatinine Ratio 15.4 (10-20); Calcium 8.2 mg/dl (8.6-10.3); Creatinine Clr Calc Pharmacy 92.4 ml/min; Est GFR (African American) 122.5 ml/min; Est GFR (Non-African American) 105.7 ml/min; Magnesium 1.7 mg/dl (1.7-2.4); Phosphorus 2.7 mg/dl (2.5-4.9); Potassium 3.4 mmol/L (3.5-5.1)
[2024-03-23 10:10] LABS: Hematocrit (blood only) 35.1 % (37.0-47.0); Hemoglobin 11.7 g/dl (12.0-16.0); Mean Corpuscular Hemoglobin 30.1 pg (25.0-34.0); Mean Corpuscular Hgb Conc 33.3 g/dL (32.0-36.0); Mean Corpuscular Volume 90.2 fL (80.0-100.0); Platelet Count 365 K/uL (130-400); RDW Coefficient of Variation 12.7 % (11.5-14.5); RDW Standard Deviation 41.8 fL (36.4-46.3); Red Blood Count 3.89 M/uL (4.20-5.40); White Blood Count 6.42 K/ul (4.8-10.8)
[2024-03-23] MEDS: clonazePAM 1 MG TAB PO SCH (13:22)
--- NOTE | 2024-03-23 16:14 | Communication Note ---
Date of Service: March 23, 2024 Patient was seen and examined at bedside. AAOx3, sitting in bed, conversing well. Chest clear, HS normal, abd benign. She was admitted earlier in the day ( see H and P note for details). She feels improved from admission and would like to try solid food. No more nausea or vomiting. Admits to lots of ongoing stress. Reviewed cardio and GI recommendations. EGD here on Monday vs as OP per GI. Will advance diet to regular while continuing symptomatic management. Hypokalemia improved. Hb drop could be from hemodilution. No overt bleeding noted. Repeat labs in am. Full note tomorrow.
[2024-03-23] MEDS: DESVENLAFAXINE SUCCINATE ER TABLET PO SCH (17:29)
[2024-03-23] MEDS ORDERED: Nursing to Pharmacy Communication SCH (17:30)
[2024-03-23] MEDS: DESVENLAFAXINE SUCCINATE ER TABLET PO STA (17:32)
[2024-03-23] MEDS: QUEtiapine FUMARATE 200 MG TAB PO SCH (20:21)
[2024-03-23] MEDS: AMITRIPTYLINE HCL 25 MG TAB PO SCH (20:22)
[2024-03-23] MEDS: SODIUM CHLORIDE 0.9% 500 ML IV SCH (23:31)
[2024-03-24 06:31] LABS: Hematocrit (blood only) 32.8 % (37.0-47.0); Hemoglobin 10.8 g/dl (12.0-16.0); Mean Corpuscular Hemoglobin 29.9 pg (25.0-34.0); Mean Corpuscular Hgb Conc 32.9 g/dL (32.0-36.0); Mean Corpuscular Volume 90.9 fL (80.0-100.0); Mean Platelet Volume 9.1 fL (9.4-12.4); Platelet Count 311 K/uL (130-400); RDW Coefficient of Variation 12.8 % (11.5-14.5); RDW Standard Deviation 42.3 fL (36.4-46.3); Red Blood Count 3.61 M/uL (4.20-5.40); White Blood Count 5.87 K/ul (4.8-10.8)
[2024-03-24 06:42] LABS: Calcium 8.3 mg/dl (8.6-10.3); Creatinine Clr Calc Pharmacy 84.6 ml/min; Est GFR (African American) 117.6 ml/min; Est GFR (Non-African American) 101.4 ml/min; Magnesium 1.8 mg/dl (1.7-2.4); Potassium 4.2 mmol/L (3.5-5.1)
[2024-03-24 07:18] LABS: Basophils # (auto) 0.04 K/uL (0.00-0.20); Basophils % (auto) 0.7 %; Eosinophils # (auto) 0.05 K/uL (0.00-0.50); Eosinophils % (auto) 0.9 %; Lymphocytes # (auto) 3.58 K/uL (1.20-3.40); Monocytes % (auto) 8.5 %; Neutrophils % (auto) 28.9 %
--- NOTE | 2024-03-24 08:39 | Gastroenterology Progress Note ---
Date of Service March 24, 2024 Assessment & Plan (1) Nausea & vomiting: Plan: She is doing well. I am uncertain about the amitriptyline with its interactions with ritalin. She wants to go home on it and talk about the ritalin with her PCP. If she will do that I am okay with it. She will get her procedures done electively as scheduled unless she stays until tomorrow. Admission and Anticipated Discharge Date Admission Date: March 23, 2024 Subjective Eating breakfast. Feeling good today. Did get amitriptyline last njight Physical Exam Physical Exam: She looks well Results & Data Vital Signs (Past 12 Hours) Vital Signs Temp Pulse Pulse Resp BP BP Pulse Ox 03/24/24 07:47 36.7 C 62 18 85/57 L 92 03/24/24 07:09 73 03/24/24 04:06 36.6 C 81 16 95/60 L 96 03/23/24 23:11 36.9 C 82 16 80/49 L 85/55 L 97 03/23/24 23:05 103 H O2 Del Method 03/24/24 07:47 Room Air 03/24/24 07:09 03/24/24 04:06 Room Air 03/23/24 23:11 Room Air 03/23/24 23:05
[2024-03-24] MEDS: LACTATED RINGER'S 500 ML IV ONE (09:50)
[2024-03-24] MEDS: ALUMINUM/MAGNESIUM/SIMETH (MAALOX MAX) 30 ML UDC PO PRN (10:56)
[2024-03-24 13:12] LABS: Hematocrit (blood only) 36.6 % (37.0-47.0); Hemoglobin 12.1 g/dl (12.0-16.0)
--- NOTE | 2024-03-24 14:08 | Hospitalist Progress Note ---
Date of Service March 24, 2024 Assessment & Plan (1) Nausea & vomiting: Plan 48-year-old female with past medical history significant for hypocalcemia, hypokalemia, GERD, colitis, chronic constipation alternating with diarrhea, gastritis, irritable bowel syndrome with diarrhea, gastroparesis, cervical intraepithelial neoplasia 1, fibromyalgia, chronic daily headache, migraine, cervicalgia, syncope, dysthymic disorder, depression, ADHD, generalized anxiety disorder presented to the ED with ongoing nausea and vomiting and also found to have significant hypokalemia. Patient states was admitted to [facility] 3 times in last 2 months with similar episodes. C.Diff was ruled out. CT abdomen pelvis showed fluid throughout colon and rectum. Symptoms thought to be related to irritable bowel syndrome. Gastric emptying study showed delayed gastric emptying of solids. Last colonoscopy February 2023 which showed polyps and diverticulosis. GI suggested gastroparesis diet and EGD and colonoscopy as outpatient. And patient was discharged on potassium supplements 40 mg 3 times daily and dicyclomine and loperamide as needed and simethicone. Nausea/vomiting- resolved. Now tolerating regular diet without any issues. Seen by GI- recommended EGD tomorrow. Will keep npo overnight. Hypokalemia- resolved. Continue potassium supplementation. IBS- trial of nortriptyline per GI. On linzess. Still with constipation- plan for suppository Low blood pressure- asymptomatic. Improved with ivf and now stable. Monitor. Syncope- likely from hypovolemia. Orthostatics negative as received IVF and now eating well. Prior zio and echo 2021 was unremarkable. Per cardio, no further cardiac work up needed. Generalized anxiety disorder/ ADHD- continue home medications GERD- continue PPI, pepcid. Maalox prn. DVT ppx- sc lovenox Dispo- Pending EGD tomorrow. NPO after midnight Time spent- approx 35 mins Admission and Anticipated Discharge Date Admission Date: March 23, 2024 Subjective Patient was seen and examined at bedside. States she is feeling better. Able to tolerate regular diet although she is requiring zofra and had reflux symptoms which improved with maalox. No nausea, vomiting, CP, SOB, dizziness. States she would like to get EGD done here as recommended by GI. She states she deals with constipation and had a tiny BM despite being on linzess and agreeable to suppository tonight if she does not have a good BM. Review of Systems Review of Systems: All systems reviewed & are unremarkable except as noted in Subjective Physical Exam Physical Exam: General: Sitting comfortably in bed, not in distress, on room air HEENT: EOMI, PAPITO, MMM Chest: Clear breath sounds bilaterally, no wheezes or crackles CVS: Regular rate and rhythm, normal heart sounds, no murmur Abdomen: Soft, non tender, not distended, normal bowel sounds Neuro: Awake, alert, oriented, conversing well, non focal Extremities: No cyanosis, clubbing or edema Results & Data Results & Data Vital Signs (Past 12 Hours) Vital Signs Temp Pulse Pulse Resp BP BP Pulse Ox 03/24/24 11:46 36.4 C L 81 16 121/76 96 03/24/24 07:47 36.7 C 62 18 85/57 L 92 03/24/24 07:09 73 03/24/24 04:06 36.6 C 81 16 95/60 L 96 O2 Del Method 03/24/24 11:46 Room Air 03/24/24 07:47 Room Air 03/24/24 07:09 03/24/24 04:06 Room Air Laboratory Results Short CBC 03/24/24 03/24/24 Range/Units 05:53 12:38 WBC 5.87 (4.8-10.8) K/ul Hgb 10.8 L 12.1 (12.0-16.0) g/dl Hct 32.8 L 36.6 L (37.0-47.0) % Plt Count 311 (130-400) K/uL BMP 03/24/24 05:53 Sodium 143 Potassium 4.2 D Chloride 113 H Carbon Dioxide 27 BUN 5 L Creatinine 0.71 Glucose 86 Calcium 8.3 L
[2024-03-24] MEDS: PANTOprazole 40 MG TAB PO SCH (17:17)
[2024-03-24] MEDS: bisacodyL 10 MG SUPP PR SCH (20:18)
[2024-03-25 06:55] LABS: Hematocrit (blood only) 35.1 % (37.0-47.0); Hemoglobin 11.7 g/dl (12.0-16.0)
[2024-03-25 07:26] LABS: BUN Creatinine Ratio 8.6 (10-20); Calcium 8.8 mg/dl (8.6-10.3); Creatinine Clr Calc Pharmacy 74.1 ml/min; Est GFR (African American) 100.2 ml/min; Est GFR (Non-African American) 86.5 ml/min; Potassium 4.6 mmol/L (3.5-5.1)
--- NOTE | 2024-03-25 11:01 | Electrocardiogram Report ---
Test Reason : Blood Pressure : / mmHG Vent. Rate : 118 BPM Atrial Rate : 118 BPM P-R Int : 118 ms QRS Dur : 076 ms QT Int : 326 ms P-R-T Axes : 054 082 029 degrees QTc Int : 456 ms Sinus tachycardia Possible Left atrial enlargement Nonspecific ST and T wave abnormality Abnormal ECG No previous ECGs available Confirmed by Uvaldo Gomez ([id number]) on 03/25/2024 11:01:27 AM Referred By: REFERRED SELF Confirmed By:Uvaldo Gomez
--- NOTE | 2024-03-25 11:35 | Anesthesiology Consultation ---
Date of Service March 25, 2024 Assessment & Plan (1) Gastroparesis: (2) Acute hypokalemia: (3) Nausea & vomiting: Chart Review Chart Review: Acceptable Risk for Surgery and Patient NOT seen in Pre Admission Testing History Surgery Operation Date: 03/25/24 16:30 Proposed Procedures p Esophagogastroduodenoscopy Dr. Loja - Cali Loja Jr, MD Height/Weight Height: 5 ft 4 in Weight: 61.7 kg Allergies Allergy/AdvReac Type Severity Reaction Status Date / Time No Known Allergies Allergy Unverified 03/22/24 23:10 Medications Home Medications Medication Instructions Recorded Confirmed Last Taken bupropion HCl 150 mg tablet,12 hr 150 mg PO QAM 03/22/24 03/22/24 Unknown sustained-release calcium carbonate (Calcium Antacid) 750 tab PO QAM 03/22/24 03/22/24 Unknown clonazepam 1 mg tablet 1 mg PO BID 03/22/24 03/23/24 Unknown cyanocobalamin (vitamin B-12) 1,000 mcg IM UD 03/22/24 03/22/24 Unknown 1,000 mcg/mL injection solution desvenlafaxine succinate 100 mg 100 mg PO DAILY 03/22/24 03/22/24 Unknown tablet,extended release 24 hr esomeprazole magnesium 40 mg 40 mg PO DAILY 03/22/24 03/22/24 Unknown capsule,delayed release (Nexium) famotidine 20 mg tablet 20 mg PO BID 03/22/24 03/22/24 Unknown linaclotide 290 mcg capsule 290 mcg PO DAILY 03/22/24 03/22/24 Unknown (Linzess) loperamide 2 mg capsule 2 mg PO DIRECTED PRN Diarrhea 03/22/24 03/22/24 Unknown methylphenidate HCl 20 mg tablet 20 mg PO TID 03/22/24 03/22/24 Unknown (Ritalin) ondansetron 4 mg disintegrating 4 mg PO TID PRN Nausea 03/22/24 03/22/24 Unknown tablet potassium chloride 20 mEq 40 meq PO TID 03/22/24 03/23/24 Unknown tablet,extended release quetiapine 200 mg tablet 200 mg PO HS 03/22/24 03/22/24 Unknown simethicone 80 mg chewable tablet 80 mg PO TID PRN .gas/bloating 03/22/24 03/22/24 Unknown (Gas Relief 80 (simethicone)) Active Medications Generic Name Dose Route Start Last Admin Trade Name Freq PRN Reason Stop Dose Admin Al Hydrox/Mg Hydrox/Simethicone 30 ml 03/24/24 10:38 03/24/24 15:56 Aluminum/Magnesium/Simeth (Maalox Max) 30 Ml Udc PO 04/23/24 10:37 30 ml Q6H PRN Administration Heartburn Amitriptyline HCl 25 mg 03/23/24 21:00 03/24/24 20:14 Amitriptyline Hcl 25 Mg Tab PO 04/22/24 20:59 25 mg HS LOBO Administration Bisacodyl 10 mg 03/24/24 21:00 03/24/24 20:18 Bisacodyl 10 Mg Supp OK 04/23/24 20:59 10 mg HS LOBO Administration Bupropion HCl 150 mg 03/23/24 09:00 03/25/24 08:50 Bupropion Sr 150 Mg Tabcr PO 04/22/24 08:59 Not Given QAM LOBO Calcium Carbonate 750 mg 03/23/24 09:00 03/25/24 08:41 Calcium Carbonate 500 Mg Chewable Tab PO 04/22/24 08:59 Not Given QAM LOBO Clonazepam 1 mg 03/23/24 09:00 03/25/24 08:51 Clonazepam 1 Mg Tab PO 04/22/24 08:59 Not Given BID LOBO Desvenlafaxine Succinate 1 tab 03/24/24 07:30 03/25/24 08:40 Desvenlafaxine Succinate Er Tablet PO 04/23/24 07:29 1 tab QDB LOBO Administration Famotidine 20 mg 03/23/24 09:00 03/25/24 08:39 Famotidine 20 Mg Tab PO 04/22/24 08:59 20 mg BID LOBO Administration Linaclotide 290 mcg 03/23/24 09:00 03/25/24 08:40 Linaclotide 145 Mcg Capsule PO 04/22/24 08:59 290 mcg DAILY LOBO Administration Methylphenidate HCl 20 mg 03/23/24 17:30 03/25/24 08:49 Methylphenidate Hcl 10 Mg Tablet PO 04/06/24 17:29 20 mg TID@0900,1200,1600 LOBO Administration Ondansetron HCl 4 mg 03/23/24 03:09 07/20/24 17:29 Ondansetron Inj 2 Mg/Ml 2 Ml Vial IV 04/22/24 03:08 4 mg Q6H PRN Administration Nausea Pantoprazole Sodium 40 mg 03/24/24 17:00 03/25/24 08:39 Pantoprazole 40 Mg Tab PO 04/23/24 16:59 40 mg BIDM LOBO Administration Potassium Chloride 40 meq 03/23/24 21:00 03/25/24 08:39 Potassium Chloride Crtab 20 Meq Tabcr PO 04/22/24 20:59 40 meq BID LOBO Administration Quetiapine Fumarate 200 mg 03/23/24 21:00 03/24/24 20:15 Quetiapine Fumarate 200 Mg Tab PO 04/22/24 20:59 200 mg HS LOBO Administration Simethicone 80 mg 03/23/24 03:09 03/24/24 07:54 Simethicone 80 Mg Chew PO 04/22/24 03:08 80 mg TID PRN Administration gas/bloating Social History Smoking Status: Never smoker Do You Dip or Chew Tobacco: No Hx Alcohol Use: No Hx Substance Use: No Physical Exam Vital Signs Last Vital Signs Temp 36.6 C 03/25/24 07:51 Pulse 77 03/25/24 07:51 Resp 16 03/25/24 07:51 BP 90/60 L 03/25/24 07:51 Pulse Ox 98 03/25/24 07:51 O2 Del Method Room Air 03/25/24 09:00 Testing Laboratory Results 03/25/24 06:40 03/25/24 06:40 PT 10.5 Seconds (9.0-12.0) 03/22/24 Unknown INR 1.0 (0.9-1.1) 03/22/24 Unknown APTT 27 Seconds (21-31) 03/22/24 Unknown Urine Color Yellow 03/23/24 02:58 Urine Appearance Cloudy (Clear) A 03/23/24 02:58 Urine pH 5.5 (4.5-7.5) 03/23/24 02:58 Ur Specific Billingsley 1.011 (1.000-1.030) 03/23/24 02:58 Urine Protein Negative (Negative) 03/23/24 02:58 Urine Glucose (UA) Negative (Negative) 03/23/24 02:58 Urine Ketones Negative (Negative) 03/23/24 02:58 Urine Nitrite Negative (Negative) 03/23/24 02:58 Ur Leukocyte Esterase 1+ (Negative) H 03/23/24 02:58 Urine WBC (Auto) 11-20 /hpf (0-5) H 03/23/24 02:58 Urine RBC (Auto) 0-2 /hpf (0-2) 03/23/24 02:58 U Hyaline Cast (Auto) 3-5 /lpf (0-2) H 03/23/24 02:58 U Epithel Cells (Auto) 6-10 /hpf (0-2) H 03/23/24 02:58 Urine Bacteria (Auto) None Seen (None Seen) 03/23/24 02:58 03/23/24 02:58 Urine Culture - Final Urine,Clean Catch Lactobacillus species
[2024-03-25] MEDS: SODIUM CHLORIDE 0.9% 500 ML IV SCH (11:46)
--- NOTE | 2024-03-25 12:29 | Hospitalist Progress Note ---
Date of Service March 25, 2024 Assessment & Plan (1) Nausea & vomiting: Plan 48-year-old female with past medical history significant for hypocalcemia, hypokalemia, GERD, colitis, chronic constipation alternating with diarrhea, gastritis, irritable bowel syndrome with diarrhea, gastroparesis, cervical intraepithelial neoplasia 1, fibromyalgia, chronic daily headache, migraine, cervicalgia, syncope, dysthymic disorder, depression, ADHD, generalized anxiety disorder presented to the ED with ongoing nausea and vomiting and also found to have significant hypokalemia. Patient states was admitted to [facility] 3 times in last 2 months with similar episodes. C.Diff was ruled out. CT abdomen pelvis showed fluid throughout colon and rectum. Symptoms thought to be related to irritable bowel syndrome. Gastric emptying study showed delayed gastric emptying of solids. Last colonoscopy February 2023 which showed polyps and diverticulosis. GI suggested gastroparesis diet and EGD and colonoscopy as outpatient. And patient was discharged on potassium supplements 40 mg 3 times daily and dicyclomine and loperamide as needed and simethicone. Nausea/vomiting- resolved. Now tolerating regular diet without any issues. Seen by GI- recommended EGD tomorrow. Will keep npo overnight. Hypokalemia- resolved. Cutting down on potassium supplementation. IBS- trial of nortriptyline per GI. On linzess. Still with constipation despite suppository. ?trial of enema Low blood pressure- asymptomatic. Improved with ivf and now stable. Monitor. Syncope- likely from hypovolemia. Orthostatics negative as received IVF and now eating well. Prior zio and echo 2021 was unremarkable. Per cardio, no further cardiac work up needed. Generalized anxiety disorder/ ADHD- continue home medications GERD- continue PPI, pepcid. Maalox prn. DVT ppx- sc lovenox Dispo- Pending EGD today Time spent- approx 35 mins Admission and Anticipated Discharge Date Admission Date: March 23, 2024 Subjective Patient was seen and examined at bedside. She states she had an episode of nausea and vomiting after the blood work yesterday afternoon. She is awaiting f or EGD today. She is n.p.o. for the same. Today, she denies any nausea, vomiting, abdominal pain, chest pain, shortness of breath, fever or chills. She states she did not have a bowel movement despite taking the suppository last night. Review of Systems Review of Systems: All systems reviewed & are unremarkable except as noted in Subjective Physical Exam Physical Exam: General: Sitting comfortably in bed, not in distress, on room air HEENT: EOMI, PAPITO, MMM Chest: Clear breath sounds bilaterally, no wheezes or crackles CVS: Regular rate and rhythm, normal heart sounds, no murmur Abdomen: Soft, non tender, not distended, normal bowel sounds Neuro: Awake, alert, oriented, conversing well, non focal Extremities: No cyanosis, clubbing or edema Results & Data Results & Data Vital Signs (Past 12 Hours) Vital Signs Temp Pulse Pulse Resp BP BP Pulse Ox 03/25/24 11:42 36.9 C 77 16 109/75 96 03/25/24 09:00 03/25/24 07:51 36.6 C 77 16 90/60 L 98 03/25/24 06:49 79 03/25/24 04:14 36.6 C 103 H 16 92/58 L 98 O2 Del Method 03/25/24 11:42 Room Air 03/25/24 09:00 Room Air 03/25/24 07:51 Room Air 03/25/24 06:49 03/25/24 04:14 Room Air Laboratory Results Short CBC 03/24/24 03/25/24 Range/Units 12:38 06:40 Hgb 12.1 11.7 L (12.0-16.0) g/dl Hct 36.6 L 35.1 L (37.0-47.0) % BMP 03/25/24 06:40 Sodium 143 Potassium 4.6 Chloride 107 Carbon Dioxide 35 H BUN 7 Creatinine 0.81 Glucose 85 Calcium 8.8
--- NOTE | 2024-03-25 12:43 | History & Physical Report ---
Date of Service March 25, 2024 Assessment & Plan (1) Nausea & vomiting: Plan: Pleasant lady with chronic nausea and vomiting who needs EGD. Procedure and risks discussed. She agrees Admission and Anticipated Discharge Date Admission Date: March 23, 2024 History of Present Illness Chief Complaint: nausea and vomiting Primary Care Provider: Riccardo Nickerson 48 year old female with three to four years of nausea, vomiting and bowel movement problems. We are planning EGD Allergies Allergy/AdvReac Type Severity Reaction Status Date / Time No Known Allergies Allergy Unverified 03/22/24 23:10 Home Medications Medication Instructions Recorded Confirmed Type bupropion HCl 150 mg tablet,12 hr 150 mg PO QAM 03/22/24 03/22/24 History sustained-release calcium carbonate (Calcium Antacid) 750 tab PO QAM 03/22/24 03/22/24 History clonazepam 1 mg tablet 1 mg PO BID 03/22/24 03/23/24 History cyanocobalamin (vitamin B-12) 1,000 mcg IM UD 03/22/24 03/22/24 History 1,000 mcg/mL injection solution desvenlafaxine succinate 100 mg 100 mg PO DAILY 03/22/24 03/22/24 History tablet,extended release 24 hr esomeprazole magnesium 40 mg 40 mg PO DAILY 03/22/24 03/22/24 History capsule,delayed release (Nexium) famotidine 20 mg tablet 20 mg PO BID 03/22/24 03/22/24 History linaclotide 290 mcg capsule 290 mcg PO DAILY 03/22/24 03/22/24 History (Linzess) loperamide 2 mg capsule 2 mg PO DIRECTED PRN Diarrhea 03/22/24 03/22/24 History methylphenidate HCl 20 mg tablet 20 mg PO TID 03/22/24 03/22/24 History (Ritalin) ondansetron 4 mg disintegrating 4 mg PO TID PRN Nausea 03/22/24 03/22/24 History tablet potassium chloride 20 mEq 40 meq PO TID 03/22/24 03/23/24 History tablet,extended release quetiapine 200 mg tablet 200 mg PO HS 03/22/24 03/22/24 History simethicone 80 mg chewable tablet 80 mg PO TID PRN .gas/bloating 03/22/24 03/22/24 History (Gas Relief 80 (simethicone)) Past Med/Surg History Problem List Nausea & vomiting Acute hypokalemia Gastroparesis Social History Smoking Status: Never smoker Second Hand Exposure: No; Do You Dip or Chew Tobacco: No; Tobacco Cessation Education Requested by Patient: No Hx Alcohol Use: No Hx Substance Use: No Preferred Language: Occitan Communication Ability: Effective Body Artist Required: No Beliefs That Will Affect Care: None Current Living Situation: Alone Other Information That Helps Us Care for You: No Feels Safe at Home: Yes Safety Concerns: Feels Safe At This Time Assistive Devices: None Physical Exam Constitutional: WD/WN, vitals as above Neck: trachea midline, no thyromegaly Respiratory: normal respiratory effort, lungs clear to auscultation Cardiovascular: RRR, no murmur, no edema Gastrointestinal (Abdomen): normal bowel sounds, soft, nontender, no hepatosplenomegaly ASA Classification ASA ASA2 Results & Data Vital Signs (Past 12 Hours) Vital Signs Temp Pulse Pulse Resp BP BP Pulse Ox 03/25/24 11:42 36.9 C 77 16 109/75 96 03/25/24 09:00 03/25/24 07:51 36.6 C 77 16 90/60 L 98 03/25/24 06:49 79 03/25/24 04:14 36.6 C 103 H 16 92/58 L 98 O2 Del Method 03/25/24 11:42 Room Air 03/25/24 09:00 Room Air 03/25/24 07:51 Room Air 03/25/24 06:49 03/25/24 04:14 Room Air Code Status & VTE Plan VTE Prophylaxis Plan VTE Prophylaxis will be ordered: Yes
--- NOTE | 2024-03-25 13:05 | GI REPORT ---
[facility] Patient: THO MACDONALD : 1975 Sex at : Female Age: 48 Years Procedure: Upper GI endoscopy Date: 03/25/2024 Attending Physician: Cali Loja MD Referring MD: Referred Self Indications: - Nausea with vomiting Medications: - Monitored Anesthesia Care - Propofol per Anesthesia - See the Anesthesia note for documentation of the administered medications Complications: - No immediate complications. Estimated Blood Loss: - Estimated blood loss: None. Procedure: - ASA Grade Assessment: II - A patient with mild systemic disease. - The egd scope was introduced through the mouth and advanced to the second part of the duodenum. - The upper GI endoscopy was accomplished without difficulty. - The patient tolerated the procedure well. Findings: - The examined esophagus was normal. - Patchy mild inflammation characterized by erythema was found in the gastric antrum. Biopsies were taken with a cold forceps for histology. - The exam of the stomach was otherwise normal. - The examined duodenum was normal. Biopsies for histology were taken with a cold forceps for evaluation of celiac disease. Impression: - Normal esophagus. - Gastritis, characterized by erythema. Biopsied. - Normal examined duodenum. Biopsied. Recommendation: - Discharge patient to home. Procedure Code(s): - 70018, Esophagogastroduodenoscopy, flexible, transoral; with biopsy, single or multiple Diagnosis Code(s): - R11.2, Nausea with vomiting, unspecified - K29.70, Gastritis, unspecified, without bleeding CPT(R) - 2023 copyright [employer]. All Rights Reserved. The CPT codes, CCI edits and ICD codes generated are intended as suggestions and were generated based on input data. These codes are preliminary and upon supervisor home energy consultant review may be revised to meet current compliance and payer requirements. The provider is responsible for the final determination of appropriate codes, and modifiers. Dr. Cali Loja MD This document has been electronically signed. Note Initiated:03/25/2024 Note Completed:03/25/2024 1:04 PM [id number]
--- NOTE | 2024-03-25 13:11 | Anesthesiology Progress Note ---
Date of Service March 25, 2024 Anesthesia Post Procedure Vital Signs Vital Signs: Temp Pulse Pulse Resp BP BP Pulse Ox 03/25/24 13:02 82 16 99/68 L 96 03/25/24 11:42 36.9 C 77 16 109/75 96 03/25/24 09:00 03/25/24 07:51 36.6 C 77 16 90/60 L 98 03/25/24 06:49 79 03/25/24 04:14 36.6 C 103 H 16 92/58 L 98 03/25/24 00:01 36.4 C L 91 H 18 92/54 L 97 03/24/24 23:42 115 H 03/24/24 19:52 37.2 C 89 18 115/77 97 03/24/24 16:37 94 H 03/24/24 15:22 36.8 C 97 H 18 98/63 L 97 O2 Del Method 03/25/24 13:02 Room Air 03/25/24 11:42 Room Air 03/25/24 09:00 Room Air 03/25/24 07:51 Room Air 03/25/24 06:49 03/25/24 04:14 Room Air 03/25/24 00:01 Room Air 03/24/24 23:42 03/24/24 19:52 Room Air 03/24/24 16:37 03/24/24 15:22 Room Air Transfer of Care Handoff Completed per policy Notes Mental Status: alert / awake / arousable and participated in evaluation Patient Amnestic to Procedure: Yes Nausea / Vomiting: adequately controlled Pain: adequately controlled Airway Patency, RR, SpO2: stable & adequate BP & HR: stable & adequate Hydration State: stable & adequate Anesthetic Complications: no major complications apparent and Pt Satisfied with anesthetic care
[2024-03-25] MEDS: LIDOCAINE 2% 2 ML VIAL/AMP(20MG/ML) INFIL ONE (13:54)
[2024-03-25] MEDS: PROPOFOL IV EMULSION 10 MG/ML 20 ML VIAL IV ONE (13:54)
--- NOTE | 2024-03-25 15:06 | Discharge Summary ---
Date of Service March 25, 2024 Admission HPI Per Admitting Provider 48-year-old female with past medical history significant for hypocalcemia, hypokalemia, GERD, colitis, chronic constipation alternating with diarrhea, gastritis, irritable bowel syndrome with diarrhea, gastroparesis, cervical intraepithelial neoplasia 1, fibromyalgia, chronic daily headache, migraine, cervicalgia, syncope, dysthymic disorder, depression, ADHD, generalized anxiety disorder presents with ongoing nausea and vomiting and also found to have hypokalemia. Patient states was admitted to [facility] 3 times in last 2 months with similar episodes.Discharge summary from [facility]" C.Diff w as ruled out. CT abdomen pelvis showed fluid throughout colon and rectum. Symptoms thought to be related to irritable bowel syndrome. Gastric emptying study showed delayed gastric emptying of solids. Last colonoscopy February 2023 which showed polyps and diverticulosis. GI suggested gastroparesis diet and EGD and colonoscopy as outpatient. And patient was discharged on potassium supplements 40 mg 3 times daily and dicyclomine and loperamide as needed and simethicone." Patient says still she is having lot of nausea and vomiting. She is not able to eat much. She thinks she is vomiting potassium tablets. She says she alternates diarrhea and constipation. Currently having a lot of diarrhea. Denies any blood in the stool. Not micturating much. She denies any fevers. Sometimes she gets chest pains. Currently no chest pain. No shortness of breath. States she has episodes of blacking out Last time she passed out about, was few days back while sitting on the commode. No fevers. Has some headache. Vision is okay. No runny nose or sore throat currently. No cough currently. Hemodynamics are okay.Patient says sometimes she gets very bad cramps in her legs and as she holds her legs tight and developed bruises and showed photos of bruises. Past medical history. As mentioned above past surgical history. Colonoscopy. Colposcopy. Cystourethroscopy. EGD. Bilateral enlargement of breast. Tonsillectomy. [place] tooth removal. Family history. No smoking. Alcohol rarely. No drug use. Admission Exam Per Admitting Provider General- Not in distress Head- atraumatic Eyes- PERRL. ENT- oropharynx clear Neck- supple, no JVD. Lungs- clear to auscultation no wheezing or crackles. Heart- regular rhythm; no murmur, no gallop. Abdomen- normal bowel sounds, soft, nontender, no distension. Extremities- no pretibial edema, no erythema seen. old bruises seen on extremities. Neuro- alert, oriented PERRL, no facial palsy; no dysarthria; moves extremities Principal Diagnosis Nausea, vomiting, hypokalemia Discharge Exam General: Sitting comfortably in bed, not in distress, on room air HEENT: EOMI, PAPITO, MMM Chest: Clear breath sounds bilaterally, no wheezes or crackles CVS: Regular rate and rhythm, normal heart sounds, no murmur Abdomen: Soft, non tender, not distended, normal bowel sounds Neuro: Awake, alert, oriented, conversing well, non focal Extremities: No cyanosis, clubbing or edema Discharge Data Allergies Allergy/AdvReac Type Severity Reaction Status Date / Time No Known Allergies Allergy Unverified 03/22/24 23:10 Consultations 03/22/24 22:35 ED Decision to Admit Stat 03/23/24 08:00 Consult Cardiology Routine Consult Gastroenterology Routine Procedures Performed Operation Date: 03/25/24 16:30 Actual Procedures p EGD Biopsy Cytology - Cali Loja Jr, MD Laboratory Results WBC 5.87 K/ul (4.8-10.8) 03/24/24 05:53 RBC 3.61 M/uL (4.20-5.40) L 03/24/24 05:53 Hgb 11.7 g/dl (12.0-16.0) L 03/25/24 06:40 Hct 35.1 % (37.0-47.0) L 03/25/24 06:40 MCV 90.9 fL (80.0-100.0) 03/24/24 05:53 MCH 29.9 pg (25.0-34.0) 03/24/24 05:53 MCHC 32.9 g/dL (32.0-36.0) 03/24/24 05:53 RDW Std Deviation 42.3 fL (36.4-46.3) 03/24/24 05:53 RDW Coeff of Justino 12.8 % (11.5-14.5) 03/24/24 05:53 Plt Count 311 K/uL (130-400) 03/24/24 05:53 MPV 9.1 fL (9.4-12.4) L 03/24/24 05:53 Immature Gran % (Auto) 0.0 % 03/24/24 05:53 Neut % (Auto) 28.9 % 03/24/24 05:53 Lymph % (Auto) 61.0 % 03/24/24 05:53 [place] % (Auto) 8.5 % 03/24/24 05:53 Eos % (Auto) 0.9 % 03/24/24 05:53 Baso % (Auto) 0.7 % 03/24/24 05:53 Neut # (Auto) 1.70 K/uL (1.40-6.50) 03/24/24 05:53 Lymph # (Auto) 3.58 K/uL (1.20-3.40) H 03/24/24 05:53 [place] # (Auto) 0.50 K/uL (0.11-0.59) 03/24/24 05:53 Eos # (Auto) 0.05 K/uL (0.00-0.50) 03/24/24 05:53 Baso # (Auto) 0.04 K/uL (0.00-0.20) 03/24/24 05:53 Immature Gran # (Auto) 0.00 K/uL (0.01-0.20) L 03/24/24 05:53 PT 10.5 Seconds (9.0-12.0) 03/22/24 Unknown INR 1.0 (0.9-1.1) 03/22/24 Unknown APTT 27 Seconds (21-31) 03/22/24 Unknown PTT Ratio 1.0 03/22/24 Unknown Sodium 143 mmol/L (136-145) 03/25/24 06:40 Potassium 4.6 mmol/L (3.5-5.1) 03/25/24 06:40 Chloride 107 mmol/L (98-107) 03/25/24 06:40 Carbon Dioxide 35 mmol/L (21-32) H 03/25/24 06:40 Anion Gap 1 (3-11) L 03/25/24 06:40 BUN 7 mg/dl (6-23) 03/25/24 06:40 Creatinine 0.81 mg/dl (0.6-1.2) 03/25/24 06:40 Est Cr Clr Drug Dosing 74.1 ml/min 03/25/24 06:40 Est GFR ( Amer) 100.2 ml/min 03/25/24 06:40 Est GFR (Non-Af Amer) 86.5 ml/min 03/25/24 06:40 BUN/Creatinine Ratio 8.6 (10-20) L 03/25/24 06:40 Glucose 85 mg/dl (70-99(Fasting)) 03/25/24 06:40 Calcium 8.8 mg/dl (8.6-10.3) 03/25/24 06:40 Phosphorus 3.0 mg/dl (2.5-4.9) 03/24/24 05:53 Magnesium 1.8 mg/dl (1.7-2.4) 03/24/24 05:53 Total Bilirubin 0.3 mg/dl (0.2-1.0) 03/22/24 Unknown AST 20 U/L (13-39) 03/22/24 Unknown ALT 17 U/L (7-52) 03/22/24 Unknown Alkaline Phosphatase 105 U/L (34-104) H 03/22/24 Unknown Total Protein 8.5 gm/dl (6.0-8.3) H 03/22/24 Unknown Albumin 4.9 gm/dl (3.4-5.0) 03/22/24 Unknown Globulin 3.6 gm/dl (2.5-4.0) 03/22/24 Unknown Albumin/Globulin Ratio 1.4 (0.9-2) 03/22/24 Unknown Urine Color Yellow 03/23/24 02:58 Urine Appearance Cloudy (Clear) A 03/23/24 02:58 Urine pH 5.5 (4.5-7.5) 03/23/24 02:58 Ur Specific [place] 1.011 (1.000-1.030) 03/23/24 02:58 Urine Protein Negative (Negative) 03/23/24 02:58 Urine Glucose (UA) Negative (Negative) 03/23/24 02:58 Urine Ketones Negative (Negative) 03/23/24 02:58 Urine Blood Negative (Negative) 03/23/24 02:58 Urine Nitrite Negative (Negative) 03/23/24 02:58 Urine Bilirubin Negative (Negative) 03/23/24 02:58 Urine Urobilinogen Negative (Negative) 03/23/24 02:58 Ur Leukocyte Esterase 1+ (Negative) H 03/23/24 02:58 Urine WBC (Auto) 11-20 /hpf (0-5) H 03/23/24 02:58 Urine RBC (Auto) 0-2 /hpf (0-2) 03/23/24 02:58 U Hyaline Cast (Auto) 3-5 /lpf (0-2) H 03/23/24 02:58 U Epithel Cells (Auto) 6-10 /hpf (0-2) H 03/23/24 02:58 Urine Bacteria (Auto) None Seen (None Seen) 03/23/24 02:58 [place] < 0.1 mmol/L (0.6-1.2) L 03/22/24 22:52 Impressions Chest/Abdomen X-ray 03/22/24 21:38 XR abdomen 2V w PA chest CLINICAL HISTORY: vomiting TECHNIQUE: 2 views of the abdomen were obtained. A single view of the chest was obtained. Comparison: None available at the time of this dictation. FINDINGS: No lines and tubes are seen. The cardiomediastinal silhouette is normal. The lungs are clear. No evidence of pleural effusion or pneumothorax. The osseous structures are grossly unremarkable. The bowel gas pattern is nonobstructive. A moderate amount of stool is noted within the large bowel. IMPRESSION: Nonobstructive bowel gas pattern. ACT 112: Negative or not required by law. Electronically signed by: Mata Mccauley M.D. 03/23/2024 8:30 AM Hospital Course (1) Nausea & vomiting: Plan 48-year-old female with past medical history significant for hypocalcemia, hy pokalemia, GERD, colitis, chronic constipation alternating with diarrhea, gastritis, irritable bowel syndrome with diarrhea, gastroparesis, cervical intraepithelial neoplasia 1, fibromyalgia, chronic daily headache, migraine, cervicalgia, syncope, dysthymic disorder, depression, ADHD, generalized anxiety disorder presented to the ED with ongoing nausea and vomiting and also found to have significant hypokalemia. Patient states was admitted to [facility] 3 times in last 2 months with similar episodes. C.Diff was ruled out. CT abdomen pelvis showed fluid throughout colon and rectum. Symptoms thought to be related to irritable bowel syndrome. Gastric emptying study showed delayed gastric emptying of solids. Last colonoscopy February 2023 which showed polyps and diverticulosis. GI suggested gastroparesis diet and EGD and colonoscopy as outpatient. And patient was discharged on potassium supplements 40 mg 3 times daily and dicyclomine and loperamide as needed and simethicone. She came with N/V and hypokalemia and they have resolved with conservative management. She was seen by GI and underwent EGD which shows normal esophagus and duodenum but mild gastritis and cleared for discharge home by GI. She has been tolerating diet well without any issues. GI recommended trial of nortriptyline which she would like to continue despite knowing the interaction with ritalin. She would like to go home. She is comfortable and stable for discharge home. Recommended repeat BMP in 4-5 days with PCP to monitor the electrolytes. Nausea/vomiting- resolved. Now tolerating regular diet without any issues. EGD today shows normal esophagus and duodenum but mild gastritis and cleared for discharge home by GI. Follow up with GI for the biopsy results. Recommended to stay away from the greasy, fatty, spicy food which provokes her symptoms. Hypokalemia- resolved. On potassium supplementation. Recommend repeat BMP in 4-5 days IBS- trial of nortriptyline per GI. On linzess. Follows up with GI. Has colonoscopy scheduled for April. Low blood pressure- asymptomatic. Improved with ivf and now stable. Recommend adequate hydration and extra salt in diet. Syncope- likely from hypovolemia. Orthostatics negative as received IVF and now eating well. Prior zio and echo 2021 was unremarkable. Per cardio, no further cardiac work up needed. Generalized anxiety disorder/ ADHD- continue home medications GERD- continue PPI, pepcid, Tums, simethicone prn Total Time Total Time Spent Total Time Spent (In Minutes): 40 Discharge Plan Discharge Items Patient Disposition: Home - Self-Care Reason For Visit: N/V/D, HYPOKALEMIA Discharge Diagnosis: Nausea, vomiting, hypokalemia Activity: Resume your previous activity Non-emergency contact: Primary Care Provider Call non-emergency contact if: you have any medication questions, your symptoms worsen and your pain is not controlled Follow-up/Referrals: Riccardo Nickerson D.O. [Primary Care Provider] - (Your primary care office will contact you for a follow up appointment/discussion.) Diet: Regular Addtl Attending Provider Instructions: GI recommended trial of nortryptiline but it would interact with your ritalin. Follow up with your family doctor to discuss further. Encourage adequate hydration and extra salt in your diet to keep the blood pressure up. Follow up with your family doctor regarding the pending biopsy results. Follow up with the GI. Recommend repeat blood work for potassium in 4-5 days and follow up with your family doctor. Pending Studies at Discharge: Yes (gastric biopsy results) Stand-Alone Forms: My [facility], Smoking Cessation Medications and DC Order Prescriptions: New amitriptyline 25 mg Tablet 25 mg PO HS Qty: 30 0RF Continued loperamide 2 mg capsule 2 mg PO DIRECTED PRN (Reason: Diarrhea) methylphenidate HCl [Ritalin] 20 mg Tablet 20 mg PO TID quetiapine 200 mg tablet 200 mg PO HS clonazepam 1 mg tablet 1 mg PO BID Calcium Antacid 300 mg (750 mg) tablet,chewable 750 tab PO QAM famotidine 20 mg tablet 20 mg PO BID cyanocobalamin (vitamin B-12) 1,000 mcg/mL solution 1,000 mcg IM UD esomeprazole magnesium [Nexium] 40 mg Capsule,Delayed Release(Dr/Ec) 40 mg PO DAILY ondansetron 4 mg tablet,disintegrating 4 mg PO TID PRN (Reason: Nausea) simethicone [Gas Relief 80 (simethicone)] 80 mg tablet,chewable 80 mg PO TID PRN (Reason: .gas/bloating) Linzess 290 mcg capsule 290 mcg PO DAILY desvenlafaxine succinate 100 mg tablet extended release 24 hr 100 mg PO DAILY Qty: 30 0RF Changed potassium chloride 20 mEq tablet extended release 40 meq PO BID Qty: 0 0RF Discontinued bupropion HCl 150 mg tablet sustained-release 12 hr 150 mg PO QAM Discharge Orders: Discharge Order (Routine); Ordered 03/25/24 Ordered By: Jose Manuel Fu Admission Data Admit Date/Time: 03/23/24 01:27 Attending Provider: Jose Manuel Fu Admit Provider: Graham Candelaria Primary Care Provider: Riccardo Nickerson Other Providers: Graham Candelaria; Cyrus Moore
--- NOTE | 2024-03-25 22:54 | Electrocardiogram Report ---
Test Reason : Blood Pressure : / mmHG Vent. Rate : 070 BPM Atrial Rate : 070 BPM P-R Int : 118 ms QRS Dur : 076 ms QT Int : 438 ms P-R-T Axes : 031 076 027 degrees QTc Int : 473 ms Normal sinus rhythm Normal ECG When compared with ECG of 22-MAR-2024 18:43, Vent. rate has decreased BY 48 BPM Non-specific change in ST segment in Inferior leads Nonspecific T wave abnormality no longer evident in Anterolateral leads Confirmed by Uvaldo Gomez ([id number]) on 03/25/2024 10:54:13 PM Referred By: REFERRED SELF Confirmed By:Uvaldo Gomez
[2024-03-26] MEDS ORDERED: POTASSIUM CHLORIDE CRTAB 20 MEQ TABCR PO SCH (09:00)
[2024-04-08] MEDS ORDERED: CYANOCOBALAMIN 1000 MCG/ML VIAL IM ONE (08:00)
== END 2024-03-25 16:02 | disposition home or self-care (01) | DRG 392 ==
LOC: ED 18:23 → 2N 03-23 01:27